=== PATIENT | male | born 1975 | race Caucasian/White ===

== ENCOUNTER 2023-06-17 16:10 | Outpatient (OUT) | payer MEDICARE, MEDICAID, SELFPAY ==
[2023-06-17 17:24] LABS: Estimated Average Glucose 186 mg/dL; Glycohemoglobin A1C 8.1 % (4.5-6.2)
[2023-06-17 17:34] LABS: Prostate Specific Antigen Scrn 0.44 ng/mL (<=4.00)
== END 2023-06-17 16:11 | disposition home or self-care (01) ==
LOC: LAB 16:14
PROVIDERS: PCP Internal Medicine; Visit Provider Internal Medicine
DX: Z12.5 Encounter for screening for malignant neoplasm of prostate (principal); E11.65 Type 2 diabetes mellitus with hyperglycemia
CPT/HCPCS: 36415; 83036; G0103

== ENCOUNTER 2024-01-02 10:04 | Outpatient (OUT) | payer MEDICARE, MEDICAID, SELFPAY ==
[2024-01-02 10:33] LABS: Basophils Absolute Auto 0.1 10^3/uL (0.0-0.1); Eosinophils Absolute Auto 0.1 10^3/uL (0.0-0.7); Eosinophils Percent Auto 1.6 % (0.9-7.0); Hematocrit 43.5 % (42.0-54.0); Hemoglobin 14.7 g/dL (14.0-18.0); Immature Granulocytes Abs Auto 0.04 10^3/uL (0.00-0.03); Immature Granulocytes Pct Auto 0.8 % (0.0-0.5); Lymphocytes Absolute Auto 1.6 10^3/uL (1.2-3.8); Lymphocytes Percent Auto 31.5 % (20.5-60.0); Mean Corpuscular HGB Conc 33.8 g/dL (29.9-35.2); Mean Corpuscular Hemoglobin 31.8 pg (25.9-34.0); Mean Corpuscular Volume 94.2 fL (80.0-94.0); Mean Platelet Volume 9.6 fL (9.5-13.5); Monocytes Absolute Auto 0.5 10^3/uL (0.3-0.8); Monocytes Percent Auto 10.4 % (1.7-12.0); Neutrophils Absolute Auto 2.7 10^3/uL (1.4-6.5); Neutrophils Percent Auto 54.7 % (43.0-75.0); Platelet Count 221 10^3/uL (150-450); Red Blood Count 4.62 10^6/uL (4.70-6.10); Red Cell Distribution Width 12.9 % (11.0-15.0)
[2024-01-02 10:49] LABS: Estimated Average Glucose 197 mg/dL; Glycohemoglobin A1C 8.5 % (4.5-6.2)
[2024-01-02 10:55] LABS: Microalbumin Urine Random 6.3 mg/dL (<=30.0)
[2024-01-02 11:05] LABS: Anion Gap 15.7; BUN Creatinine Ratio 20.5; Calcium 9.8 mg/dL (8.5-10.1); Carbon Dioxide 24.6 mmol/L (21.0-32.0); Chloride 102 mmol/L (98-107); Cholesterol 170 mg/dL (<=200); Estimated GFR (African America >60 (>=60); Estimated GFR (Non-African Ame >60 (>=60); Glucose 173 mg/dL (74-106); HDL Cholesterol 56 mg/dL (40-60); LDL Cholesterol Calculated 89.6 mg/dL; Potassium 4.3 mmol/L (3.5-5.1); Sodium 138 mmol/L (136-145); Triglycerides 122 mg/dL (<=150); VLDL CHOLESTEROL 24.4 mg/dL
== END 2024-01-02 10:05 | disposition home or self-care (01) ==
LOC: LAB 10:06
PROVIDERS: PCP Internal Medicine; Visit Provider Internal Medicine
DX: E11.65 Type 2 diabetes mellitus with hyperglycemia (principal); E78.2 Mixed hyperlipidemia; I10 Essential (primary) hypertension; R53.83 Other fatigue; Z12.5 Encounter for screening for malignant neoplasm of prostate; Z79.899 Other long term (current) drug therapy; F33.0 Major depressive disorder, recurrent, mild
CPT/HCPCS: 36415; 80048; 80061; 82043; 83036; 84443; 85025; G0103

== ENCOUNTER 2024-06-11 14:40 | Outpatient (OUT) | payer MEDICARE, MEDICAID, SELFPAY ==
[2024-06-11 15:55] LABS: Alanine Aminotransferase 19 U/L (16-63); Albumin Level 3.8 g/dL (3.4-5.0); Alkaline Phosphatase 66 U/L (46-116); Aspartate Amino Transferase 8 U/L (15-37); Bilirubin Direct 0.1 mg/dL (0.0-0.2); Bilirubin Total 0.4 mg/dL (0.2-1.0); Cholesterol 151 mg/dL (<=200); Globulin 3.8 g/dL; HDL Cholesterol 51 mg/dL (40-60); LDL Cholesterol Calculated 76.6 mg/dL; Thyroid Stimulating Hormone 2.371 uIU/mL (0.358-3.740); Total Protein 7.6 g/dL (6.4-8.2); Triglycerides 117 mg/dL (<=150); VLDL CHOLESTEROL 23.4 mg/dL
== END 2024-06-11 14:41 | disposition home or self-care (01) ==
LOC: LAB 14:42
PROVIDERS: PCP Internal Medicine; Visit Provider Nurse Practitioner Family
DX: Z51.81 Encounter for therapeutic drug level monitoring (principal); I63.81 Other cerebral infarction due to occlusion or stenosis of small artery
CPT/HCPCS: 36415; 80061; 80076; 82607; 84443

== ENCOUNTER 2024-06-11 14:46 | Outpatient (OUT) | payer MEDICARE, MEDICAID, SELFPAY ==
[2024-06-11 15:45] LABS: Estimated Average Glucose 192 mg/dL; Glycohemoglobin A1C 8.3 % (4.5-6.2)
== END 2024-06-11 14:47 | disposition home or self-care (01) ==
LOC: LAB 14:48
PROVIDERS: PCP Internal Medicine; Visit Provider Internal Medicine
DX: Z51.81 Encounter for therapeutic drug level monitoring (principal); I63.81 Other cerebral infarction due to occlusion or stenosis of small artery; E11.65 Type 2 diabetes mellitus with hyperglycemia
CPT/HCPCS: 36415; 80061; 80076; 82607; 83036; 84443

== ENCOUNTER 2024-09-02 12:05 | Outpatient (OUT) | payer MEDICARE, MEDICAID, SELFPAY ==
--- OUTSIDE RECORDS SUMMARY | 2024-09-02 12:17 | XMS_ITS | CCD ---
Author Organization [facility] Care Team Providers Care Wash Rack Operator Name Role Phone PHYSICIAN, DEFAULT Unavailable Unavailable PHYSICIAN, DEFAULT Unavailable Unavailable NARAYAN GAGNON Unavailable Unavailable PHYSICIAN, DEFAULT Unavailable Unavailable PHYSICIAN, DEFAULT Unavailable Unavailable NARAYAN GAGNON Unavailable Unavailable Narayan Gagnon Primary Care Provider Narayan Gagnon DO Primary Care Provider [phone] Narayan Gagnon DO Primary Care Provider [phone] VAHID MOODY Referring Unavailable AARON, MARCEOL S Consulting Unavailable NARAYAN GAGNON Primary Care Unavailable ZOLTAN MONIQUE Attending Unavailable ZOLTAN MONIQUE Admitting Unavailable Narayan Gagnon DO Primary Care Provider [phone] NARAYAN GAGNON Primary Care Physician Sue Qureshi Attending Unavailable Ballard, Malina Barragan Admitting Unavailable Ballard, Malina Barragan Attending Unavailable Ballard, Malina Barragan Referring Unavailable SALAM, Sylvester Admitting Unavailable SALAM, Sylvester Attending Unavailable SALAM, Phan Referring Unavailable Ballard, Malina T Admitting Unavailable Ballard, Malina T Attending Unavailable Ballard, Malina T Referring Unavailable Timmis, Lesly H Referring Unavailable Timmis, Lesly H Admitting Unavailable Timmis, Lesly H Attending Unavailable Kiera, Sue A Admitting Unavailable Kiera, Sue A Attending Unavailable Kiera, Sue A Admitting Unavailable Kiera, Sue A Attending Unavailable Narayan Gagnon Unavailable LULU, DR KUMAR Admitting Unavailable MINA PALACIOS Consulting Unavailable LULU, DR KUMAR Attending Unavailable BALL, DR BUSCH Primary Care Unavailable LULU, DR KUMAR Consulting Unavailable BALL, DR BUSCH Primary Care Unavailable BALL, DR BUSCH Admitting Unavailable BALL, DR BUSCH Attending Unavailable BALL, DR BUSCH Consulting Unavailable BALL, DR BUSCH Primary Care Unavailable BALL, DR BUSCH Admitting Unavailable BALL, DR BUSCH Attending Unavailable BALL, DR BUSCH Consulting Unavailable ZIEBER, DR ERIKA Manuel Consulting Unavailable BALL, DR BUSCH Admitting Unavailable BALL, DR BUSCH Attending Unavailable BALL, DR BUSCH Consulting Unavailable BALL, DR BUSCH Primary Care Unavailable BALL, DR BUSCH Admitting Unavailable BALL, DR BUSCH Attending Unavailable BALL, DR BUSCH Consulting Unavailable BALL, DR BUSCH Primary Care Unavailable LIZZ, GUS Admitting Unavailable BALL, DR BUSCH Primary Care Unavailable LIZZ, GUS Attending Unavailable BALLARD, DR RADFORD Admitting Unavailable BALL, DR BUSCH Primary Care Unavailable BALLARD, DR RADFORD Attending Unavailable JHONNY, HUANG Admitting Unavailable JHONNY, HUANG Attending Unavailable BALL, DR BUSCH Primary Care Unavailable Ball DONarayan Primary Care Provider [phone] DO Narayan Gagnon Primary Care Provider KIMO Hoffmann-Joseluis Stock Attending Provider Narayan Gagnon Primary Care Unavailable Hoffmann, Ju E Admitting Unavailable Hoffmann, Ju E Attending Unavailable Ball, Narayan Primary Care Unavailable Hoffmann, Ju E Admitting Unavailable Hoffmann, Ju Stock Attending Unavailable BALL, NARAYAN Referring Unavailable BALL, NARAYAN Primary Care Unavailable CONSKASHMIR GONZALES Attending Unavailable CONSOLO, KASHMIR Lombardi Admitting Unavailable BALL, NARAYAN Primary Care Unavailable BALLARD, MALINA Barragan Attending Unavailable BALLARD, MALINA Barragan Referring Unavailable HOFFMANN, JU Attending Unavailable HOFFMANN, JU Attending Unavailable COCO ARGUELLO Attending Unavailable Allergies Allergy Classification Reported Allergen(s) Allergy Type Date of Onset Reaction(s) Facility (20 sources) Morphine; Translations: [morphine] Drug Allergy 4 Hives, Vomiting (disorder), Difficulty breathing (finding) [place], [place] (12 sources) Penicillins Propensity to adverse reactions to drug 4 Hives [place], [place] (20 sources) Vancomycin; Translations: [vancomycin] Drug Allergy 3 Anaphylaxis, Difficulty breathing (finding) [place] (20 sources) Penicillin; Translations: [penicillin] Drug Allergy Urticaria (disorder) [facility] (1 source) Morphine Drug Allergy [facility] Rep[facility] (1 source) Vancomycin Drug Allergy [facility] Rep[facility] (18 sources) Penicillin G Benzathine & Proc Drug allergy Unknown [employer] Other (18 sources) Morphine Sulfate (Concentrate) *ANALGESICS - OPIOI Propensity to adverse reactions Unknown [employer] Other (6 sources) Allergies Reconciled Propensity to adverse reactions Unknown [employer] Other (6 sources) patient allergy list reviewed by nurse or physicia Propensity to adverse reactions 4 Comment:Done [employer] Other (2 sources) Penicillins Propensity to adverse reactions to drug [address] [facility] (1 source) Morphine Drug Allergy [facility] (1 source) Penicillins Drug allergy (disorder) [facility] (1 source) Vancomycin Drug Allergy 4 [facility] Rep[facility] Medications Current Medications Medication Drug Class(es) Dates Sig (Normalized) Sig (Original) Acetaminophen / oxyCODONE (6 sources) Opioid Agonist Start: 01-17-2022 Percocet 325 mg-5 mg Tab 1 tab(s), Oral, q4hr Pain 4-7, Refill(s) 0 Start Date: 01/17/22 Status: Ordered Start: 01-17-2022 Percocet 325 m g-5 mg Tab 2 tab(s), Oral, q4hr Pain 4-7, Refill(s) 0 Start Date: 01/17/22 Status: Ordered Start: 01-17-2022 Percocet 325 m g-5 mg Tab 1 tab(s), Oral, q4hr Pain 4-7, Refill(s) 0 Start Date: 01/17/22 Status: Ordered aspirin 81 mg delayed release oral tablet (20 sources) Platelet Aggregation Inhibitor, Nonsteroidal Anti-inflammatory Drug Start: 01-22-2022 aspirin 81 mg Cristal w Tab 81 mg = 1 tab(s), Chewed, Daily, Refills(s) 0 Start Date: 01/22/22 Status: Ordered Start: 04-29-2018 End: 06-26-2024 take 81 mg by mouth once daily Aspirin Active 81 MG PO daily 90 90 June 26, 2024 8:47am take 1 tablet by abdoulaye th once daily in the morning aspirin 81 MG tablet Take 81 mg by mouth every morning. 0 Active Blood-Glucose Meter (True Me trix Air Glucose Meter) [facility] [place] (3 sources) Start: 04-06-2024 Blood-Glucose Meter (True Metrix Air Glucose Meter) misc Active 0 .Route 1 April 06, 2024 12:00am to test BS daily calcium chloride 0.0014 meq/ ml / potassium chloride 0.004 meq/ml / sodium chloride 0.103 meq/ml / sodium lactate 0.028 meq/ml injectable solution (2 sources) Start: 05-07-2024 lactated ringe rs IV soln infusion Start: 11-24-2020 lactated ringe rs infusion clonazePAM 1 mg oral tablet (14 sources) Benzodiazepine Start: 08-10-2020 take 1 mg by mouth twice daily clonazepam 1 mg, Oral, BID, Psychosis Start Date: 08/10/20 Status: Ordered docusate sodium 100 mg oral capsule (20 sources) Start: 01-22-2024 take 100 mg by mouth once daily Docusate Sodium Active 100 MG PO Daily January 22, 2024 1:00am Start: 05-09-2020 take 1 capsule by mo [facility] twice daily as needed for constipation Colace 100 mg Cap 100 mg = 1 cap(s), Oral, BID, PRN for constipation, # 20 cap(s), Refills(s) 0 Start Date: 05/09/20 Status: Ordered take 1 capsule by mo ut every other day docusate sodium (COLACE) 100 MG capsule Take 1 capsule by mouth every other day Alternate with Fibercon 625 mg 0 Active 0.5 ml dulaglutide 1.5 mg/ml auto-injector (20 sources) GLP-1 Receptor Agonist Start: 06-12-2024 Dulaglutide (Trulicity) 0.75 mg/0.5 mL pen injector Active 1.5 MG SUBCUT every week June 12, 2024 2:21pm Start: 02-04-2024 End: 06-12-2024 inject 0.75 mg by subcutaneous injection every week Dulaglutide (Trulicity) 0.75 mg/0.5 mL pen injector Discontinued 0 .ROUTE .COMPLEX February 17, 2024 1:38pm June 12, 2024 2:21pm INJECT 0.75 MG SUBCUTANEOUSLY ONCE A WEEK Start: 01-15-2023 End: 02-04-2024 Dulaglutide (Trulicity) 1.5 mg/0.5 mL pen injector Discontinued 1.5 MG SUBCUT every week January 22, 2024 1:00am February 04, 2024 8:34am Start: 01-08-2022 inject 3 mg by subcu taneous injection every week Trulicity Pen 3 mg/0.5 mL subcutaneous solution 3 mg, SubCutaneous, qWeek, Blood glucose Start Date: 01/08/22 Status: Ordered Start: 04-29-2018 End: 01-22-2024 Dulaglutide (Trulicity) 0.75 mg/0.5 mL Pen Injector Discontinued 1 DOSE SUBCUT .QTUES April 29, 2018 12:00am January 22, 2024 12:43pm Dulaglutide (OLGA LICITY) 1.5 MG/0.5ML SOPN Inject 3 mg into the skin once a week Weekly on Saturday 0 Active DULoxetine 60 mg delayed release oral capsule (1 source) Serotonin and Norepinephrine Reuptake Inhibitor take 1 capsule by mouth once daily DULoxetine (CYMBALTA) 60 MG extended release capsule Take 1 capsule by mouth daily 0 Active empagliflozin 25 mg oral tablet (20 sources) Sodium-Glucose Cotransporter 2 Inhibitor Start: 01-22-20 End: 06-26-20 take 25 mg by mouth once daily Empagliflozin Active 25 MG PO Daily 90 90 June 26, 2024 8:47am Fiber (3 sources) Start: 05-09-20 take 1 tablet by mouth every other day Fiber Lax 625 mg oral tablet 625 mg = 1 tab(s), Oral, Every other day, Refills(s) 0, Constipation Start Date: 05/09/20 Status: Ordered fluticasone propionate 0.05 mg/actuat metered dose nasal spray (20 sources) Corticosteroid Start: 01-22-20 Fluticasone Propionate Active 1 SPRAY INTRANASAL Daily January 22, 2024 1:00am take 1 spray(s) nasal route once daily Fluticasone Propionate 50 MCG/ACT 1 spray in each nostril Nasally Once a day Active take 1 spray(s) nasal route once daily Fluticasone Propionate 50 MCG/ACT 1 spray in each nostril Nasally Once a day Active glimepiride 2 mg oral tablet (20 sources) Sulfonylurea Start: 01-23-2024 End: 06-26-2024 Glimepiride Active 2 MG PO Daily 90 90 June 26, 2024 8:47am Take with 4mg dose, 30 minutes prior to bkfst Start: 01-22-2024 End: 06-01-2024 take 4 mg by mouth once daily Glimepiride Discontinued 4 MG PO Daily 90 March 31, 2024 2:13pm June 01, 2024 5:40pm Start: 05-09-2020 take 1 tablet by abdoulaye once daily glimepiride 2 mg Tab 2 mg = 1 tab(s), Oral, Daily, Refills(s) 0, Blood glucose Start Date: 05/09/20 Status: Ordered Start: 04-29-2018 End: 01-22-2024 take 1 tablet by mouth once daily in the morning Glimepiride Discontinued 3 MG PO Every morning April 29, 2018 12:00am January 22, 2024 12:40pm (1 1/2 tab daily) take 2 tablets by mo uth once daily before breakfast glimepiride (AMARYL) 1 MG tablet Take 2 tablets by mouth every morning (before breakfast) 0 Active take 4 tablets by mo uth once daily before breakfast glimepiride (AMARYL) 1 MG tablet Take 4 mg by mouth every morning (before breakfast) 0 Active hyoscyamine sulfate 0.125 mg sublingual tablet (10 sources) Start: 01-22-2024 take 1 tablet under the tongue once daily Hyoscyamine Sulfate (Levsin/Sl) 0.125 mg tablet, sublingual Active 0.125 MG SUBLINGUAL Daily January 22, 2024 1:00am Start: 11-13-2023 Levsin/SL 0.12 5 MG 1 tablet under the tongue and allow to dissolve as needed Sublingual before meals and HS for 15 days Oct, Active ibuprofen 800 mg oral tablet (10 sources) Nonsteroidal Anti-inflammatory Drug Start: 07-30-2014 take 1 tablet by mouth every six hours as needed for pain ibuprofen (ADVIL;MOTRIN) 800 MG tablet Take 1 tablet by mouth every 6 hours as needed for Pain for up to 40 doses. 40 tablet 0 07/30/2014 Active iloperidone 6 mg oral tablet (20 sources) Atypical Antipsychotic Start: 01-22-2024 take 6 mg by mouth twice daily Iloperidone Active 6 MG PO Twice daily January 22, 2024 1:00am Start: 11-01-2022 Fanapt Refills (s) 0 Start Date: 11/01/22 Status: Ordered lisinopril 20 mg oral tablet (20 sources) Angiotensin Converting Enzyme Inhibitor Start: 01-08-2022 take 20 mg by mouth once daily Lisinopril Active 20 MG PO Daily January 22, 2024 1:00am Start: 04-29-2018 End: 01-22-2024 take 5 mg by mouth once daily Lisinopril Discontinued 5 MG PO daily April 29, 2018 12:00am January 22, 2024 12:41pm take 4 tablets by mo uth once daily in the morning lisinopril (PRINIVIL;ZESTRIL) 5 MG tablet Take 20 mg by mouth every morning 0 Active lurasidone hydrochloride 20 mg oral tablet (20 sources) Atypical Antipsychotic Start: 01-22-2024 take 20 mg by mouth once daily Lurasidone Active 20 MG PO Daily January 22, 2024 1:00am Start: 05-05-2018 End: 01-22-2024 take 1 tablet by mouth once daily Lurasidone (Latuda) 40 mg Tablet Discontinued 80 MG PO Daily with supper 60 May 05, 2018 12:00am January 22, 2024 12:43pm Start: 04-29-2018 End: 01-22-2024 take 1 tablet by mouth once daily in the evening Lurasidone (Latuda) 60 mg Tablet Discontinued 60 MG PO Every evening April 29, 2018 12:00am January 22, 2024 12:43pm End: 11-23-2021 take 1 tablet by mouth every twenty-four hours Latuda 20 MG 1 tablet in the evening with food Orally Once a day Active metFORMIN hydrochloride 500 mg oral tablet (17 sources) Biguanide Start: 01-08-2022 take 1 tablet by mouth twice daily metformin 500 mg oral tablet 500 mg = 1 tab(s), Oral, BID, Blood glucose Start Date: 01/08/22 Status: Ordered Start: 04-29-2018 End: 01-22-2024 take 1000 mg by mouth twice daily at mealtime Metformin Discontinued 1000 MG PO Twice daily April 29, 2018 12:00am January 22, 2024 12:43pm with meals metFORMIN (GLUCO PHAGE) 1000 MG tablet Take 500 mg by mouth 2 times daily (with meals) 0 Active metroNIDAZOLE 7.5 mg/ml topical cream (20 sources) Nitroimidazole Antimicrobial Start: 03-04-2023 Metronidazole (Metrocream) 0.75 % cream Active 1 APPLIC TOPICAL Twice daily January 22, 2024 1:00am Start: 03-04-2023 MetroCream 0.7 5 % 1 application Externally Twice a day for 30 days Feb, Active omeprazole 40 mg delayed release oral capsule (2 sources) Proton Pump Inhibitor Start: 11-01-2022 End: 01-30-2023 take 1 capsule by mouth once daily omeprazole 40 mg Cap-DR 40 mg = 1 cap(s), Oral, Daily, X 90 day(s), # 90 cap(s), Refills(s) 0, Pharmacy: [facility], 171, cm, 11/01/22 12:17:00 EST, Height/Length Dosing, 78.9, kg, 11/01/22 12:17:00 EST, Weight Dosing Start Date: 11/01/22 Stop Date: 01/30/23 Status: Ordered polyethylene glycol 3350 565120 mg / potassium chloride 1480 mg / sodium bicarbonate 5720 mg / sodium chloride 24781 mg powder for oral solution (1 source) Osmotic Laxative Start: 11-01-2022 NuLYTELY Zimmer oral powder for reconstitution See Instructions, 1 EA, Refill(s) 0, Prior to colonoscopy., [facility], 171, cm, 11/01/22 12:17:00 EST, Height/Length Dosing, 78.9, kg, 11/01/22 12:17:00 EST, Weight Dosing Start Date: 11/01/22 Status: Ordered pravastatin sodium 20 mg oral tablet (20 sources) HMG-CoA Reductase Inhibitor Start: 04-29-2018 take 20 mg by mouth once daily in the evening Pravastatin Active 20 MG PO Every evening April 29, 2018 12:00am sulfamethoxazole 800 mg / trimethoprim 160 mg oral tablet (4 sources) Dihydrofolate Reductase Inhibitor Antibacterial, Sulfonamide Antimicrobial Start: 03-12-2024 take 1 tablet by mouth every twelve hours Sulfamethoxazole-Tr imethoprim (Bactrim Ds) 800-160 mg tablet Active 1 TAB PO Every 12 hours 13 09March 12, 2024 12:00am traMADol hydrochloride 50 mg oral tablet (20 sources) Opioid Agonist Start: 03-12-2024 End: 06-30-2024 take 50 mg by mouth twice daily Tramadol Active 50 MG PO Twice daily 60 30 June 30, 2024 2:02pm Start 06/29 Start: 04-29-2018 End: 01-22-2024 take 50 mg by mouth twice daily Tramadol Discontinued 50 MG PO Twice daily April 29, 2018 12:00am January 22, 2024 12:43pm take 1 tablet by abdoulaye every twenty-four hours traMADol HCl 50 MG 1 tablet as needed Orally Once a day Active traZODone hydrochloride 100 mg oral tablet (20 sources) Serotonin Reuptake Inhibitor Start: 05-16-2022 traZODone (DESYREL) tablet 100 mg Start: 01-08-2022 End: 06-30-2024 take 100 mg by mouth once daily at bedtime Trazodone Active 100 MG PO Daily at bedtime 90 90 June 30, 2024 1:09pm 24 hr divalproex sodium 500 mg extended release oral tablet (20 sources) Mood Stabilizer, Anti-epileptic Agent Start: 05-09-2020 take 1 tablet by mouth at bedtime divalproex (DEPAKOTE ER) 500 MG extended release tablet Take 1 tablet by mouth in the morning and at bedtime 60 tablet 0 05/18/2022 Active Start: 05-05-2018 End: 01-22-2024 take 250 mg by mouth once daily at bedtime Divalproex Discontinued 250 MG PO Daily at bedtime 30 May 05, 2018 12:00am January 22, 2024 12:43pm Start: 05-05-2018 End: 01-22-2024 take 500 mg by mouth twice daily Divalproex Discontinued 500 MG PO Twice daily 60 May 05, 2018 12:00am January 22, 2024 12:43pm Start: 04-29-2018 End: 01-22-2024 take 250 mg by mouth three times daily Divalproex Discontinued 250 MG PO Three times daily April 29, 2018 12:00am January 22, 2024 12:44pm take 2 tablets by mo [facility] twice daily divalproex (DEPAKOTE) [address] tablet Take 500 mg by mouth 2 times daily 0 Active verapamil hydrochloride 180 mg extended release oral tablet (20 sources) Calcium Channel Won Start: 02-21-2023 take 1 tablet by mouth every twenty-four hours Verapamil HCl ER 180 MG 1 tablet Orally Once a day for 90 days Jan, Active Start: 04-29-2018 take 180 mg by mouth once chitra y Verapamil Active 180 MG PO daily April 29, 2018 12:00am Completed/Discontinued Medications Medication Drug Class(es) Dates Sig (Normalized) Sig (Original) acetaminophen 500 mg oral tablet (2 sources) Start: 05-16-2022 End: 05-16-2022 acetaminophen (TYLENOL) tablet 1,000 mg Start: 11-24-2020 End: 11-24-2020 acetaminophen (TYLENOL) tabl et 650 mg calcium polycarbophil 625 mg oral tablet (20 sources) Start: 04-29-2018 End: 01-22-2024 take 1 tablet by mouth twice daily Calcium Polycarbophil (Fiber-Lax) 625 mg Tablet Discontinued 625 MG PO Twice daily April 29, 2018 12:00am January 22, 2024 12:44pm take 1 tablet by mouth every oth er day polycarbophil (FIBERCON) 625 MG tablet Take 1 tablet by mouth every other day Alternate with Colace 0 Active take 2 tablets by mo uth every eight hours Fiber-Lax 625 MG 2 tablets as needed Ora lly Three times a day for 30 days Active cholecalciferol 0.025 mg oral capsule (4 sources) Vitamin D Start: 04-29-2018 End: 01-22-2024 take 1 capsule by mouth once daily Cholecalciferol (Vitamin D3) (Vitamin D3) 1,000 unit Capsule Discontinued 1000 UNIT PO daily April 29, 2018 12:00am January 22, 2024 12:44pm citalopram 40 mg oral tablet (5 sources) Serotonin Reuptake Inhibitor Start: 04-29-2018 End: 11-16-2020 take 40 mg by mouth once daily in the evening Citalopram Discontinued 40 MG PO Every evening April 29, 2018 12:00am May 05, 2018 9:27am 50 ml clindamycin 18 mg/ml injection (2 sources) Lincosamide Antibacterial Start: 05-07-2024 End: 05-07-2024 clindamycin (CLEOCIN) 900 mg in dextrose 5 % 50 mL IVPB Start: 11-24-2020 End: 11-24-2020 clindamycin (CLEOCIN) 900 mg in dextrose 5 % 50 mL IVPB dimenhyDRINATE 50 mg oral tablet (1 source) Start: 11-24-2020 End: 11-24-2020 dimenhyDRINATE (DRAMAMINE) tablet 50 mg gadoteridol (PROHANCE) injection 15 mL (1 source) Start: 11-17-2020 End: 11-17-2020 gadoteridol (PROHANCE) injection 15 mL LORazepam 1 mg oral tablet (1 source) Benzodiazepine Start: 05-16-2022 End: 05-16-2022 LORazepam (ATIVAN) tablet 1 mg mirtazapine 15 mg oral tablet (4 sources) Start: 05-05-2018 End: 01-22-2024 take 15 mg by mouth once daily at bedtime Mirtazapine Discontinued 15 MG PO Daily at bedtime May 05, 2018 12:00am January 22, 2024 12:43pm MULTIPLE VITAMIN PO (1 source) End: 11-16-2020 MULTIPLE VITAMIN PO Take by mouth every morning. 0 11/16/2020 Discontinued (Therapy completed) OLANZapine 5 mg oral tablet (1 source) Atypical Antipsychotic Start: 05-17-2022 End: 05-17-2022 OLANZapine (ZYPREXA) tablet 10 mg primidone 50 mg oral tablet (7 sources) Anti-epileptic Agent Start: 05-16-2022 End: 05-16-2022 primidone (MYSOLINE) tablet 25 mg Start: 01-08-2022 primidone 50 m g Tab 25 mg = 0.5 tab(s), Oral, Once a day (at bedtime), Psychosis Start Date: 01/08/22 Status: Ordered take 0.5 tablet by m outh once daily primidone (MYSOLINE) 50 MG tablet Take 0.5 tablets by mouth nightly 0 Active tiZANidine 4 mg oral tablet (20 sources) Central alpha-2 Adrenergic Agonist Start: 05-16-2022 End: 05-16-2022 tiZANidine (ZANAFLEX) tablet 4 mg Start: 04-29-2018 take 4 mg by mouth o nce daily in the evening Tizanidine Active 4 MG PO Every evening April 29, 2018 12:00am take 1 tablet by abdoulaye th every eight hours tiZANidine HCl 4 MG 1 tablet as needed Orally Three times a day for 30 days Active vitamin e d-alpha 400 unt oral capsule (1 source) End: 11-16-2020 take 1 capsule by mouth once daily in the evening vitamin E 400 UNIT capsule Take 400 Units by mouth every evening. 0 11/16/2020 Discontinued (Therapy completed) zolpidem tartrate 10 mg oral tablet (1 source) gamma-Aminobuty eloy Acid-ergic Agonist End: 11-16-2020 zolpidem (AMBIEN) 10 MG tablet Take by mouth nightly as needed for Sleep. 0 11/16/2020 Discontinued (Therapy completed) Problems Active Problems Problem Classification Problem Date Documented Da te Episodic/Chronic Abdominal pain (20 sources) Abdominal pain; Translations: [Unspecified abdominal pain] Onset: 01-26-2014 05-09-2020 Episodic Acute cerebrovascular disease (1 source) Other cerebral infarction due to occlusion or stenosis of small artery; Translations: [Other cerebral infarction due to occlusion or stenosis of small artery] Onset: 07-02-2024 Chronic Allergic reactions (18 sources) Contact dermatitis; Translations: [Unspecified contact dermatitis, unspecified cause] Onset: 06-25-2018 Episodic Anxiety disorders (20 sources) Generalized anxiety disorder; Translations: [Generalized anxiety disorder] Chronic Asthma (20 sources) Mild intermittent asthma; Translations: [Mild intermittent asthma, uncomplicated] Onset: 01-21-2018 Chronic Bacterial infection; unspecified site (12 sources) Bacterial infectious disease; Translations: [Bacterial infection, unspecified, in conditions classified elsewhere and of unspecified site] Onset: 11-22-2017 Episodic Blindness and vision defects (1 source) Diplopia; Translations: [Diplopia] Episodic Cardiac dysrhythmias (20 sources) Intermittent palpitations; Translations: [Palpitations] Episodic Developmental disorders (6 sources) Developmental academic disorder; Translations: [Developmental disorder of scholastic skills, unspecified] Onset: 03-15-2014 Chronic Diabetes mellitus with complications (20 sources) Hyperglycemia due to type 2 diabetes mellitus; Translations: [Type 2 diabetes mellitus with hyperglycemia] Onset: 02-10-2014 Chronic Diabetes mellitus without complication (15 sources) Type 2 diabetes mellitus without complication; Translations: [Type 2 diabetes mellitus without complications] Onset: 08-06-2014 05-17-2022 Chronic Disorders of lipid metabolism (20 sources) Hyperlipidemia; Translations: [Mixed hyperlipidemia] Onset: 07-16-2016 08-26-2020 Chronic Diverticulosis and diverticulitis (6 sources) Diverticular disease of colon; Translations: [Diverticulosis of large intestine without perforation or abscess without bleeding] Chronic Esophageal disorders (3 sources) Gastro-esophageal reflux disease with esophagitis; Translations: [Gastro-esophageal reflux disease with esophagitis, without bleeding] Onset: 04-22-2018 Chronic Esophageal disorders (3 sources) Esophageal disorders; Translations: [Gastro-esophageal reflux disease with esophagitis, without bleeding] Onset: 04-22-2018 Essential hypertension (20 sources) Essential hypertension; Translations: [Essential (primary) hypertension] Onset: 03-17-2015 05-17-2022 Chronic Genitourinary symptoms and ill-defined conditions (6 sources) Post-micturition incontinence ; Translations: [Urge incontinence of urine] 05-09-2020 Chronic Headache; including migraine (20 sources) Episodic tension-type headache; Translations: [Episodic tension-type headache, not intractable] 01-22-2024 Chronic Hyperplasia of prostate (20 sources) Lower urinary tract symptoms due to benign prostatic hypertrophy; Translations: [Benign prostatic hyperplasia with lower urinary tract symptoms] Onset: 11-05-2022 01-22-2024 Chronic Immunizations and screening for infectious disease (12 sources) Contact with and (suspected) exposure to other viral communicable diseases; Translations: [Vaccination given] Resolved: 11-04-2021 Episodic Impulse control disorders, NEC (1 source) Homicidal thoughts; Translations: [Homicidal ideations] Episodic Malaise and fatigue (20 sources) Fatigue; Translations: [Chronic fatigue, unspecified] Onset: 02-08-2023 Chronic Malaise and fatigue (19 sources) Weakness; Translations: [Malaise and fatigue] Onset: 01-26-2014 Episodic Miscellaneous mental health disorders (20 sources) Mental disorder; Translations: [Primary insomnia] 05-09-2020 Chronic Mood disorders (20 sources) Depressive disorder; Translations: [Depression with suicidal ideation] Onset: 11-20-2018 05-17-2022 Chronic Nutritional deficiencies (6 sources) Vitamin D deficiency; Translations: [Vitamin D deficiency, unspecified] Onset: 01-17-2017 Chronic Osteoarthritis (20 sources) Arthritis; Translations: [Arthritis of left knee] 05-09-2020 Chronic Other aftercare (4 sources) Other jail (current) drug therapy; Translations: [OTH LONGTERM CURRENT DRUG THERAPY] Onset: 02-11-2023 Episodic Other and unspecified benign neoplasm (3 sources) History of polyp of colon; Translations: [Personal history of colonic polyps] Onset: 11-01-2022 Episodic Other and unspecified benign neoplasm (20 sources) Polyp of colon; Translations: [Polyp of colon] Episodic Other congenital anomalies (3 sources) Congenital chromosomal disease Onset: 02-28-2018 08-26-2020 Chronic Other congenital anomalies (20 sources) Stanley syndrome; 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] Onset: 03-03-2018 05-09-2020 Chronic Other congenital anomalies (6 sources) Congenital malformation syndrome; Translations: [Other specified multiple congenital anomalies, so described] Onset: 03-15-2014 Chronic Other congenital anomalies (6 sources) Congenital pes planus; Translations: [Congenital pes planus, unspecified foot] Onset: 08-06-2014 Chronic Other congenital anomalies (3 sources) Stanley syndrome; 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] 01-23-2024 Chronic Other connective tissue disease (20 sources) History of right total knee replacement; Translations: [Presence of right artificial knee joint] Chronic Other connective tissue disease (6 sources) Artificial knee joint present; Translations: [Presence of right artificial knee joint] Onset: 01-23-2022 Chronic Other connective tissue disease (1 source) Presence of right artificial knee joint; Translations: [History of total right knee replacement] Chronic Other diseases of kidney and ureters (9 sources) Vesicoureteric reflux; Translations: [Vesicoureteral-refl ux, unspecified] 05-09-2020 Episodic Other ear and sense organ disorders (3 sources) Hearing loss 05-09-2020 Chronic Other ear and sense organ disorders (20 sources) Sensorineural hearing loss; Translations: [Unspecified sensorineural hearing loss] 01-22-2024 Chronic Other eye disorders (1 source) Myopathy of extraocular muscles, bilateral; Translations: [Dysfunction of both inferior oblique muscles] Chronic Other eye disorders (1 source) Monocular exotropia with A pattern; Translations: [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] Episodic Other eye disorders (1 source) Alternating exotropia; 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] Episodic Other gastrointestinal disorders (20 sources) Irritable bowel syndrome; Translations: [Mixed irritable bowel syndrome] 01-22-2024 Chronic Other gastrointestinal disorders (3 sources) Mixed irritable bowel syndrome Chronic Other gastrointestinal disorders (6 sources) Irritable bowel syndrome with diarrhea; Translations: [Irritable bowel syndrome with diarrhea] Chronic Other gastrointestinal disorders (1 source) Irritable bowel syndrome with diarrhea Chronic Other gastrointestinal disorders (1 source) Digestive system finding; Translations: [Other specified symptoms and signs involving the digestive system and abdomen] Onset: 11-01-2022 Episodic Other gastrointestinal disorders (3 sources) Dysphagia; Translations: [Dysphagia, unspecified] Onset: 11-01-2022 Episodic Other gastrointestinal disorders (3 sources) Heartburn; Translations: [Heartburn] Onset: 11-01-2022 Episodic Other gastrointestinal disorders (2 sources) Irregular bowel habits 11-01-2022 Episodic Other gastrointestinal disorders (2 sources) Diarrhea; Translations: [Diarrhea, unspecified] Onset: 01-02-2023 Episodic Other gastrointestinal disorders (2 sources) Diarrhea, unspecified; Translations: [Diarrhea] Episodic Other gastrointestinal disorders (4 sources) Slow transit constipation; Translations: [Slow transit constipation] 01-23-2024 Episodic Other gastrointestinal disorders (2 sources) Slow transit constipation; Translations: [Slow transit constipation] 01-23-2024 Episodic Other hereditary and degenerative nervous system conditions (20 sources) Mild cognitive disorder ; Translations: [Mild cognitive impairment, so stated] Chronic Other hereditary and degenerative nervous system conditions (3 sources) Mild cognitive impairment, so stated; Translations: [MCI (mild cognitive impairment)] Chronic Other hereditary and degenerative nervous system conditions (1 source) Essential tremor; Translations: [ESSENTIAL TREMOR] Onset: 12-26-2022 Chronic Other hereditary and degenerative nervous system conditions (10 sources) Essential tremor; Translations: [Essential tremor] 01-22-2024 Chronic Other hereditary and degenerative nervous system conditions (4 sources) Impaired cognition; Translations: [Mild cognitive impairment, so stated] 01-22-2024 Chronic Other inflammatory condition of skin (20 sources) Rosacea; Translations: [Rosacea, unspecified] 01-22-2024 Chronic Other inflammatory condition of skin (1 source) Rosacea, unspecified Chronic Other inflammatory condition of skin (20 sources) Seborrheic dermatitis of scalp; Translations: [Seborrheic dermatitis, unspecified] 01-22-2024 Episodic Other inflammatory condition of skin (6 sources) Seborrheic dermatitis; Translations: [Seborrheic dermatitis, unspecified] Episodic Other inflammatory condition of skin (2 sources) Seborrheic dermatitis, unspecified; Translations: [Other seborrheic dermatitis] 01-23-2024 Episodic Other injuries and conditions due to external causes (6 sources) Late effect of foreign body in orifice; Translations: [Unspecified foreign body in respiratory tract, part unspecified causing other injury, sequela] Episodic Other lower respiratory disease (1 source) Shortness of breath; Translations: [SHORTNESS OF BREATH] Onset: 02-11-2023 Episodic Other male genital disorders (3 sources) Swelling of testicle 05-09-2020 Episodic Other male genital disorders (20 sources) Hydrocele; Translations: [Hydrocele, unspecified] Episodic Other male genital disorders (7 sources) Hydrocele, unspecified; Translations: [Hydrocele] Episodic Other nervous system disorders (1 source) Aphasia; Translations: [Aphasia] Onset: 05-15-2024 Chronic Other nervous system disorders (4 sources) Tremor, unspecified; Translations: [TREMOR UNSPECIFIED] Onset: 02-13-2023 Episodic Other non-traumatic joint disorders (20 sources) Hip pain; Translations: [Pain in unspecified hip] Episodic Other non-traumatic joint disorders (6 sources) Arthralgia of the pelvic region and thigh; Translations: [Pain in unspecified hip] Episodic Other non-traumatic joint disorders (1 source) Pain in unspecified hip; Translations: [Hip pain] Episodic Other nutritional; endocrine; and metabolic disorders (20 sources) Obesity; Translations: [Obesity, unspecified] Chronic Other nutritional; endocrine; and metabolic disorders (12 sources) Body mass index 30+ - obesity; Translations: [Body mass index 30.0-30.9, adult] Onset: 02-25-2017 Chronic Other nutritional; endocrine; and metabolic disorders (12 sources) Obese class I; Translations: [Body mass index 32.0-32.9, adult] Onset: 01-26-2014 Chronic Other nutritional; endocrine; and metabolic disorders (6 sources) Simple obesity ; Translations: [Other obesity due to excess calories] Onset: 01-26-2014 Chronic Other nutritional; endocrine; and metabolic disorders (1 source) Obesity, unspecified; Translations: [Obesity (BMI 30-39.9)] Chronic Other screening for suspected conditions (not mental disorders or infectious disease) (3 sources) Encounter for screening for malignant neoplasm of prostate Episodic Other skin disorders (6 sources) Generalized hyperhidrosis; Translations: [Generalized hyperhidrosis] Episodic Other skin disorders (2 sources) Ingrowing nail; Translations: [Ingrowing nail] Onset: 05-07-2024 Episodic Other upper respiratory infections (19 sources) Acute upper respiratory infection; Translations: [Acute upper respiratory infection, unspecified] Onset: 11-09-2013 Episodic Pleurisy; pneumothorax; pulmonary collapse (20 sources) Obstructive atelectasis; Translations: [Atelectasis] Onset: 02-28-2018 Resolved: 01-15-2022 08-26-2020 Episodic Poisoning by nonmedicinal substances (6 sources) Toxic effect of venom of other arthropod, accidental (unintentional), sequela; Translations: [Toxic effect of venom of other arthropod, accidental (unintentional), sequela] Episodic Residual codes; unclassified (3 sources) Sleep apnea 01-08-2022 Chronic Residual codes; unclassified (20 sources) Obstructive sleep apnea syndrome; Translations: [Obstructive sleep apnea (adult) (pediatric)] Onset: 2018 01-22-2024 Chronic Residual codes; unclassified (8 sources) Obstructive sleep apnea (adult) (pediatric); Translations: [Obstructive sleep apnea (adult)(pediatric)] Chronic Schizophrenia and other psychotic disorders (20 sources) Schizophrenia; Translations: [Schizoaffective disorder, bipolar type] 01-08-2022 Chronic Skin and subcutaneous tissue infections (18 sources) Cellulitis of right lower limb; Translations: [Cellulitis of right lower limb] Resolved: 11-04-2021 03-12-2024 Episodic Suicide and intentional self-inflicted injury (1 source) Suicidal thoughts; Translations: [Suicidal ideations] Episodic Unclassified (1 source) Patient encounter status; Translations: [Preoperative testing] Unclassified (2 sources) Finding of sensation of abdomen 11-01-2022 Unclassified (3 sources) Other specified cough; Translations: [Other specified cough] Onset: 01-21-2018 Unclassified (2 sources) pre admission testing; Translations: [pre admission testing] Onset: 05-01-2024 Past or Other Problems Problem Classification Problem Date Documented Date Episodic/Chronic Acute bronchitis (6 sources) Acute bronchitis; Translations: [Acute bronchitis, unspecified] Onset: 03-22-2016 Episodic Genitourinary symptoms and ill-defined conditions (20 sources) Dysuria; Translations: [Increased frequency of urination] Onset: 02-10-2014 05-09-2020 Episodic Headache; including migraine (10 sources) Headache; Translations: [Chronic headache disorder] Onset: 12-12-2015 05-09-2020 Episodic Heart valve disorders (9 sources) Heart murmur; Translations: [O/E - cardiac murmur] Resolved: 12-22-2021 05-09-2020 Episodic Inflammation; infection of eye (except that caused by tuberculosis or sexually transmitteddisease) (6 sources) Acute conjunctivitis; Translations: [Unspecified acute conjunctivitis] Onset: 11-09-2016 Episodic Inflammatory conditions of male genital organs (6 sources) Orchitis and epididymitis; Translations: [Epididymo-orchitis] Resolved: 01-14-2021 Episodic Joint disorders and dislocations; trauma-related (6 sources) Current tear of medial cartilage AND/OR meniscus of knee; Translations: [Tear of medial cartilage or meniscus of knee, current] Onset: 03-15-2014 Episodic Neoplasms of unspecified nature or uncertain behavior (9 sources) Neoplasm of lung ; 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, bronchus and lung] Onset: 02-17-2018 08-26-2020 Episodic Other aftercare (6 sources) High risk drug monitoring status; Translations: [prison (current) use of opiate analgesic] Onset: 02-09-2019 Episodic Other connective tissue disease (4 sources) Other bursitis of hip, left hip; Translations: [OTHER BURSITIS OF HIP LEFT HIP] Onset: 12-20-2022 Episodic Other connective tissue disease (6 sources) Disorder of musculoskeletal system; Translations: [Other symptoms and signs involving the musculoskeletal system] Resolved: 01-15-2022 Episodic Other connective tissue disease (6 sources) Achilles bursitis; Translations: [Achilles bursitis or tendinitis] Onset: 05-29-2017 Episodic Other connective tissue disease (6 sources) Tear of right rotator cuff; Translations: [Unspecified rotator cuff tear or rupture of right shoulder, not specified as traumatic] Onset: 11-22-2017 Episodic Other lower respiratory disease (12 sources) Lung field abnormal; Translations: [Other nonspecific abnormal finding of lung field] Onset: 06-25-2018 Episodic Other lower respiratory disease (6 sources) Chronic cough; Translations: [Chronic cough] Onset: 01-06-2018 Episodic Other lower respiratory disease (9 sources) Cough; Translations: [Cough, unspecified] Onset: 01-21-2018 Episodic Other male genital disorders (9 sources) Disorder of male genital organ; Translations: [Other specified disorders of the male genital organs] Resolved: 01-14-2021 10-28-2020 Episodic Other non-traumatic joint disorders (1 source) Pain in left shoulder; Translations: [PAIN IN LEFT SHOULDER] Onset: 12-26-2022 Episodic Other non-traumatic joint disorders (6 sources) Shoulder joint pain; Translations: [Pain in joint, shoulder region] Onset: 11-22-2017 Episodic Other non-traumatic joint disorders (6 sources) Arthralgia of the ankle and/or foot; Translations: [Pain in unspecified ankle and joints of unspecified foot] Onset: 04-29-2014 Episodic Other nutritional; endocrine; and metabolic disorders (6 sources) Body mass index 25-29 - overweight; Translations: [Body mass index 29.0-29.9, adult] Onset: 02-25-2017 Episodic Other nutritional; endocrine; and metabolic disorders (6 sources) Overweight; Translations: [Overweight] Onset: 01-26-2014 Episodic Pneumonia (except that caused by tuberculosis or sexually transmitted disease) (6 sources) Infective pneumonia; Translations: [Pneumonia due to other specified infectious organisms] Onset: 01-06-2018 Episodic Residual codes; unclassified (6 sources) Insomnia; Translations: [Insomnia, unspecified] Resolved: 01-15-2022 Episodic Residual codes; unclassified (6 sources) Requires influenza virus vaccination; Translations: [Need for prophylactic vaccination and inoculation, Influenza] Onset: 08-13-2018 Episodic Spondylosis; intervertebral disc disorders; other back problems (6 sources) Low back pain; Translations: [Low back pain, unspecified] Resolved: 11-04-2021 Episodic Sprains and strains (18 sources) Strain of muscle of left hip; Translations: [Strain of muscle, fascia and tendon of left hip, initial encounter] Onset: 11-22-2017 Episodic Superficial injury; contusion (12 sources) Contusion of abdominal wall; Translations: [Contusion of abdominal wall] Onset: 03-17-2015 Resolved: 11-04-2021 Episodic Unclassified (5 sources) Nocturnal polyuria; Translations: [Nocturnal polyuria] Resolved: 01-15-2022 Unclassified (1 source) Nocturnal polyuria; Translations: [Nocturnal polyuria] Resolved: 01-15-2022 Results Test Name Value Interpretation Reference Range Facil ity CT angio neckon 07-02-2024 CT angio neck [facility] Main [place] [address] [place] [address] CT Scan Report Signed Patient: Hari Thornton MR#: [id number] : 1975 Acct:[id number] Age/Sex: 49 / M ADM Date: 07/02/24 Loc: CT Room: Type: [facility] Attending Dr: Ju BLANC Copies to: JAYASHREE Porter Ordering Provider: JAYASHREE Porter Date of Service: 07/02/24 CT/CT angio neck: I63.81 ([id number]) CT/CT angio head: I63.81 CTA Head and Neck TECHNIQUE: Axial imaging of the head and neck with 2-D and 3-D reconstruction. 75cc of Isovue-370. The CT exam was performed using one or more the following dose reduction techniques: Automated exposure control, adjustment of the MA and/or Kv according to patient size, or use of the iterative reconstruction technique. Stenoses were measured using the NASCET criteria. COMPARISON: None HISTORY: lacunar infarction. Headache. The visualized aortic arch and great vessels are unremarkable. Subclavian arteries are patent No carotid dissection, critical stenosis or occlusion identified. No vertebral dissection, occlusion or abrupt cut off identified. The carotid siphons and vertebral basilar systems are patent. No intracranial aneurysm, dissection, abrupt cut off or critical stenosis identified.. . Reversal cervical lordosis with multilevel degenerative change CT/CT angio head IMPRESSION: No occlusion, critical stenosis or dissection of the extracranial or intracranial circulation. Impression dictated by: Balta Tracy M.D.07/02/2024 2:46 PM Dictation Location: [place] [address] Transcribed By: LAURA 07/02/24 1446 Dictated By: Balta Tracy DO 07/02/24 1439 Signed By: 07/02/24 1446 Normal [facility] Cholesterol in LDL Calc [Mas s/Vol]on 06-11-2024 Cholesterol in LDL [Mass/Vol] 76.6 mg/dL [facility] Comment on above: <100 mg/dl [id number] 0-129 mg/dl NEAR OR ABOVE [id number] mg/dl BORDERLINE [id number] mg/dl HIGH>190 mg/dl VERY HIGH Cholesterol in VLDL Calc [Ma ss/Vol]on 06-11-2024 Cholesterol in VLDL [Mass/Vol] 23.4 mg/dL [facility] Globulin Calc (S) [Mass/Vol] on 06-11-2024 Globulin (S) [Mass/Vol] 3.8 g/dL [facility] Glucose mean value [Mass/vol ume] in Blood Estimated from glycated hemoglobinon 06-11-2024 Average glucose Estimated from glycated hemoglobin (Bld) [Mass/Vol] 192 mg/dL [facility] - Chemistry and C hemistry - challengeon 06-11-2024 Albumin [Mass/Vol] 3.8 g/dL 3.4-5.0 [facility] ALP [Catalytic activity/Vol] 66 U/L 46-116 [facility] ALT [Catalytic activity/Vol] 19 U/L 16-63 [facility] AST [Catalytic activity/Vol] 8 U/L Low 15-37 [facility] Bilirubin [Mass/Vol] 0.4 mg/dL 0.2-1.0 [facility] Bilirubin.direct [Mass/Vol] 0.1 mg/dL 0.0-0.2 [facility] Cholesterol [Mass/Vol] 151 mg/dL <=200 [facility] Cholesterol in HDL [Mass/Vol] 51 mg/dL 40-60 [facility] Comment on above: > or =60 mg/dl - LOW CARDIOVASCULAR RISK<40 mg/dl - HIGH CARDIOVASCULAR RISK Cobalamin (Vitamin B12) [Mass/Vol] 723.0 pg/mL 193.0-986.0 [facility] Protein [Mass/Vol] 7.6 g/dL 6.4-8.2 [facility] Triglyceride [Mass/Vol] 117 mg/dL <=150 [facility] TSH Qn 2.371 m[IU]/L 0.358-3.740 [facility] - Hematology and Cell countson 06-11-2024 HbA1c (Bld) [Mass fraction] 8.3 % High 4.5-6.2 [facility] Comment on above: ADA RECOMMENDED LIMI T 4.0 - 6.0ADA THERAPEUTIC TARGET < 7.0ACTION SUGGESTED> 7.0 Serum or plasma albumin/glob ulin mass ratioon 06-11-2024 Albumin/Globulin [Mass ratio] 1.0 {ratio} [facility] Serum or plasma total choles terol/high density lipoprotein (HDL) cholesterol mass yuniel 06-11-2024 Cholesterol.total/C holesterol in HDL [Mass ratio] 3.0 {ratio} [facility] Comment on above: 3.3 - 4.4 LOW RISK4. 4 - 7.1 AVERAGE RISK7.1 - 11.0 MODERATE RISK>11.0 HIGH RISK MR head/brain wo/w conon MR head/brain wo/w con [facility] [place] [address] MRI Report Signed Patient: Hari Thornton MR#: [id number] [id number] : 1975 Acct:[id number] Age/Sex: 49 / M ADM Date: 05/15/24 Loc: Room: Type: [facility] Attending Dr: Ju BLANC Copies to: JAYASHREE Porter Ordering Provider: JAYASHREE Porter Date of Service: 05/15/24 MR/MR head/brain wo/w con: R25.1, R47.01 MR head/brain wo/w con 05/15/2024 6:46 AM SIGN AND SYMPTOMS: Increased confusion, forgetfulness PROTOCOL: Multiplanar multisequence MR images of the brain were obtained with and without IV contrast CONTRAST: 16 mL of intravenous ProHance COMPARISON: None. FINDINGS: Extra axial spaces: There is mild diffuse cortical atrophy. Hemorrhage: None. Ventricular system: Within normal limits. Basal cisterns: Within normal limits and not effaced. Cerebral parenchyma: There is a remote lacunar infarct in the right deep ngo nuclei. There are a few periventricular and subcortical white matter T2 and FLAIR hyperintense foci suggesting mild chronic microvascular ischemic change. Midline shift: None.. Cerebellum: Within normal limits. Brainstem: Within normal limits. OTHER: Calvarium: Normal marrow signal. Vascular system: Satisfactory flow voids within the anterior and posterior circulation. Visualized Paranasal sinuses: Postoperative changes are noted in the paranasal sinuses. Visualized Orbits: Within normal limits. Visualized upper cervical spine: Within normal limits. Sella and skull base: Within normal limits. MR/MR head/brain wo/w con IMPRESSION: No acute intracranial pathology. There is a remote lacunar infarct in the right deep ngo nuclei. No abnormal postcontrast enhancement. Mild chronic age-related neurodegenerative changes are noted as above. Impression dictated by: Mina Jeffery M.D.05/15/2024 11:00 AM Dictation Location: [place] [address] Transcribed By: [facility] 05/15/24 1100 Dictated By: Mina Jeffery II, MD 05/15/24 1052 Signed By: 05/15/24 1100 Normal [facility] Glucose, Whole Bloodon 05-07 Glucose [Mass/Vol] 173 mg/dL High 74 - 100 mg/dL [facility] Interpretation and review of laboratory results Abnormal [facility] Glucose [Mass/Vol] 173 mg/dL High 74-100 [facility] Basic Metabolic Panelon Anion gap [Moles/Vol] 12 mmol/L 9 - 17 mmol/L [facility] Calcium [Mass/Vol] 10.6 mg/dL High 8.6 - 10. 4 mg/dL [facility] Chloride [Moles/Vol] 103 mmol/L 98 - 107 mmol/L [facility] CO2 [Moles/Vol] 24 mmol/L 20 - 31 mmol/L [facility] Creatinine [Mass/Vol] 0.7 mg/dL 0.7 - 1.2 mg/dL [facility] Est, Glom Filt Rate - [facility] Comment on above: These results are not intended for use in patients <18 years of age. eGFR results are calculated without a race factor using the 2020 CKD-EPI equation. Careful clinical correlation is recommended, particularly when comparing to results calculated using previous equations. The CKD-EPI equation is less accurate in patients with extremes of muscle mass, extra-renal metabolism of creatine, excessive creatine ingestion, or following therapy that affects renal tubular secretion. Glucose [Mass/Vol] 160 mg/dL High 70 - 99 mg/dL [facility] Interpretation and review of laboratory results Abnormal [facility] Potassium [Moles/Vol] 4.8 mmol/L 3.7 - 5.3 mmol/L [facility] Sodium [Moles/Vol] 139 mmol/L 135 - 144 mmol/L [facility] Urea nitrogen [Mass/Vol] 17 mg/dL 6 - 20 mg/dL [facility] Urea nitrogen/Creatinine [Mass ratio] 24 mg/mg High 9 - 20 [facility] Basic Metabolic Profon 05-01 Anion gap [Moles/Vol] 12 mmol/L Normal 9-17 [facility] Comment on above: Performed By: #### B LIZ, CDP #### [facility] [address] [place] [address] [place] [address] Park Superintendent: Ryan Landin MD BUN/CRE Ratio 24 High 9-20 [facility] Comment on above: Performed By: #### B LIZ, CDP #### [facility] [address] [place] [address] [place] [address] Park Superintendent: Ryan Landin MD Calcium [Mass/Vol] 10.6 mg/dL High 8.6-10.4 [facility] Comment on above: Performed By: #### B LIZ, CDP #### [facility] [address] [place] [address] [place] [address] Park Superintendent: Ryan Landin MD Chloride [Moles/Vol] 103 mmol/L Normal 98-107 [facility] Comment on above: Performed By: #### B LIZ, CDP #### [facility] [address] [place] [address] Park Superintendent: Ryan Landin MD CO2 [Moles/Vol] 24 mmol/L Normal 20-31 [facility] Comment on above: Performed By: #### B LIZ, CDP #### [facility] [address] [place] [address] Park Superintendent: Ryan Landin MD Creatinine [Mass/Vol] 0.7 mg/dL Normal 0.7-1.2 [facility] Comment on above: Performed By: #### B LIZ, CDP #### [facility] [address] [place] [address] Park Superintendent: Ryan Landin MD GFR/1.73 sq M.predicted among non-blacks MDRD (S/P/Bld) [Vol rate/Area] mL/min/{1.73_m2} Normal >60 [facility] Comment on above: Result Comment: These results are not intended for use in patients <18 years of age. eGFR results are calculated without a race factor using the 2020 CKD-EPI equation. Careful clinical correlation is recommended, particularly when comparing to results calculated using previous equations. The CKD-EPI equation is less accurate in patients with extremes of muscle mass, extra-renal metabolism of creatine, excessive creatine ingestion, or following therapy that affects renal tubular secretion. Performed By: #### B LIZ, CDP #### [facility] [address] [place] [address] Park Superintendent: Ryan Landin MD Glucose [Mass/Vol] 160 mg/dL High 70-99 [facility] Comment on above: Performed By: #### B LIZ, CDP #### [facility] [address] [place] [address] Park Superintendent: Ryan Landin MD Potassium [Moles/Vol] 4.8 mmol/L Normal 3.7-5.3 [facility] Comment on above: Performed By: #### B LIZ, CDP #### [facility] [address] [place] [address] Park Superintendent: Ryan Landin MD Sodium [Moles/Vol] 139 mmol/L Normal 135-144 [facility] Comment on above: Performed By: #### B MP, CDP #### [facility] [address] [place] [address] Park Superintendent: Ryan Landin MD Urea nitrogen [Mass/Vol] 17 mg/dL Normal 6-20 [facility] Comment on above: Performed By: #### B LIZ, CDP #### [facility] [address] [place] [address] Park Superintendent: Ryan Landin MD CBC with Auto Differentialon 05-01-2024 Basophils (Bld) [#/Vol] 0.07 10*3/uL [facility] Basophils/100 WBC (Bld) 1 % 0 - 2 % [facility] Eosinophils (Bld) [#/Vol] 0.08 10*3/uL [facility] Eosinophils/100 WBC (Bld) 1 % 1 - 4 % [facility] Erythrocyte distribution width (RBC) [Ratio] 13.2 % 11.8 - 14.4 % [facility] Hematocrit (Bld) [Volume fraction] 45.6 % 40.7 - 50.3 % [facility] Hemoglobin (Bld) [Mass/Vol] 15.5 g/dL 13.0 - 17.0 g/dL [facility] Immature granulocytes (Bld) [#/Vol] 0.07 10*3/uL [facility] Immature granulocytes/100 WBC (Bld) 1 % High 0 [facility] Interpretation and review of laboratory results Abnormal [facility] Lymphocytes/100 WBC (Bld) 25 % 24 - 43 % [facility] Lymphocytes/100 WBC (Bld) 1.70 % [facility] MCH (RBC) [Entitic mass] 31.6 pg 25.2 - 33.5 pg [facility] MCHC (RBC) [Mass/Vol] 34.0 g/dL 28.4 - 34.8 g/dL [facility] MCV (RBC) [Entitic vol] 92.9 fL 82.6 - 102.9 fL [facility] Monocytes/100 WBC (Bld) 9 % 3 - 12 % [facility] Monocytes/100 WBC (Bld) 0.60 % [facility] Neutrophils/100 WBC (Bld) 63 % 36 - 65 % [facility] Nucleated RBC/100 WBC (Bld) [Ratio] 0.0 % 0.0 per 100 WBC [facility] Platelet mean volume (Bld) [Entitic vol] 9.5 fL 8.1 - 13.5 fL [facility] Platelets (Bld) [#/Vol] 255 10*3/uL [facility] RBC (Bld) [#/Vol] 4.91 10*6/uL 4.21 - 5.7 7 m/uL [facility] Segmented neutrophils/100 WBC (Bld) 4.18 % [facility] WBC other (Bld) [#/Vol] 6.7 [facility] CBC with Diffon 05-01-2024 Abs. Basophil 0.07 k/uL Normal 0.00-0.20 [facility] Comment on above: Performed By: #### B LIZ, CDP #### [facility] [address] [place] [address] [place], [place] [id number] Park Superintendent: Ryan Landin MD Abs.Imm.Granulocyte 0.07 k/uL Normal 0.00-0.30 [facility] Comment on above: Performed By: #### B LIZ, CDP #### [facility] [address] [place] [address] Park Superintendent: Ryan Landin MD Abs.Neutrophil (Seg) 4.18 k/uL Normal 1.50-8.10 [facility] Comment on above: Performed By: #### B LIZ, CDP #### [facility] [address] [place] [address] Park Superintendent: Ryan Landin MD Basophils/100 WBC (Bld) 1 % Normal 0-2 [facility] Comment on above: Performed By: #### B LIZ, CDP #### [facility] [address] [place] [address] [place] [address] Park Superintendent: Ryan Landin MD Eosinophils (Bld) [#/Vol] 0.08 10*3/uL Normal 0.00-0.44 [facility] Comment on above: Performed By: #### B MP, CDP #### [facility] [address] [place] [address] Dr[place], [place] [id number] Park Superintendent: Ryan Landin MD Eosinophils/100 WBC (Bld) 1 % Normal 1-4 [facility] Comment on above: Performed By: #### B LIZ, CDP #### [address] [place], [place] [id number] Park Superintendent: Ryan Landin MD Erythrocyte distribution width (RBC) [Ratio] 13.2 % Normal 11.8-14.4 [facility] Comment on above: Performed By: #### B LIZ, CDP #### [address] [place] [address] Park Superintendent: Ryan Landin MD Hematocrit (Bld) [Volume fraction] 45.6 % Normal 40.7-50.3 [facility] Comment on above: Performed By: #### B LIZ, CDP #### [address] [place] [address] Park Superintendent: Ryan Landin MD Hemoglobin (Bld) [Mass/Vol] 15.5 g/dL Normal 13.0-17.0 [facility] Comment on above: Performed By: #### B LIZ, CDP #### [address] [place] [address] Park Superintendent: Ryan Landin MD Immature granulocytes/100 WBC (Bld) 1 % High 0 [facility] Comment on above: Performed By: #### B LIZ, CDP #### [facility] [address] [place], [place] [id number] Park Superintendent: Ryan Landin MD Lymphocytes (Bld) [#/Vol] 1.70 10*3/uL Normal 1.10-3.70 [facility] Comment on above: Performed By: #### B MP, CDP #### [facility] [address] [place], [facility] Park Superintendent: Ryan Landin MD Lymphocytes/100 WBC (Bld) 25 % Normal 24-43 [facility] Comment on above: Performed By: #### B LIZ, CDP #### [facility] [address] [place], [place] [id number] Park Superintendent: Ryan Landin MD MCH (RBC) [Entitic mass] 31.6 pg Normal 25.2-33.5 [facility] Comment on above: Performed By: #### B LIZ, CDP #### [address] [place], [place] [id number] Park Superintendent: Ryan Landin MD MCHC (RBC) [Mass/Vol] 34.0 g/dL Normal 28.4-34.8 [facility] Comment on above: Performed By: #### B LIZ, CDP #### [address] [place], [facility]83 Park Superintendent: Ryan Landin MD MCV (RBC) [Entitic vol] 92.9 fL Normal 82.6-102.9 [facility] Comment on above: Performed By: #### B LIZ, CDP #### [address] [place] [address] Park Superintendent: Ryan Landin MD Monocytes (Bld) [#/Vol] 0.60 10*3/uL Normal 0.10-1.20 [facility] Comment on above: Performed By: #### B LIZ, CDP #### [facility] [address] [place], [place] [id number] Park Superintendent: Ryan Landin MD Monocytes/100 WBC (Bld) 9 % Normal 3-12 [facility] Comment on above: Performed By: #### B MP, CDP #### [facility] [address] [place], [place] [id number] Park Superintendent: Ryan Landin MD Neutrophil (Seg) 63 % Normal 36-65 [facility] Comment on above: Performed By: #### B MP, CDP #### [facility] [address] [place], [place] [id number] Park Superintendent: Ryan Landin MD NRBC Automated 0.0 per 100 WBC Normal 0.0 [facility] Comment on above: Performed By: #### B MP, CDP #### [address] [place], [place] [id number] Park Superintendent: Ryan Landin MD Platelet mean volume (Bld) [Entitic vol] 9.5 fL Normal 8.1-13.5 [facility] Comment on above: Performed By: #### B MP, CDP #### [address] [place], [place] [id number] Park Superintendent: Ryan Landin MD Platelets (Bld) [#/Vol] 255 10*3/uL Normal 138-453 [facility] Comment on above: Performed By: #### B MP, CDP #### [facility] [address] [place] [address] Dr[place], [place] [id number] Park Superintendent: Ryan Landin MD RBC (Bld) [#/Vol] 4.91 10*6/uL Normal 4.21-5.77 [facility] Comment on above: Performed By: #### B MP, CDP #### [address] [place], [place] [id number] Park Superintendent: Ryan Landin MD WBC (Bld) [#/Vol] 6.7 10*3/uL Normal 3.5-11.3 [facility] Comment on above: Performed By: #### B MP, CDP #### [facility] [address] [place] [address] Park Superintendent: Ryan Landin MD EKG 12 LeadOrdered By: Zheng Anderson on 05-01-2024 Atrial Rate 75 BPM [employer] Work Phone: P [place] 70 degrees [employer] Work Phone: P-R Interval 158 ms [employer] Work Phone: Q-T Interval 390 ms [employer] Work Phone: QRS Duration 86 ms [employer] Work Phone: QTc Calculation (Bazett) 435 ms [employer] Work Phone: R [place] 83 degrees [facility] [employer] [facility] Work Phone: T [place] 58 degrees [employer] Work Phone: Ventricular Rate 75 BPM [employer] [employer] [employer] Work Phone: [employer] Work Phone: EKG 12 Leadon 05-01-2024 Normal sinus rhythm with sinus arrhythmia Normal ECG When compared with ECG of 16-MAY-2022 17:35, No significant change was found Confirmed by COCO ANDERSON ([id number]) on 05/01/2024 12:05:02 PM [facility] Coco Anderson MD - 05/01/2024 Normal sinus rhythm with sinus arrhythmia Normal ECG When compared with ECG of 16-MAY-2022 17:35, No significant change was found Confirmed by COCO ANDERSON ([id number]) on 05/01/2024 12:05:02 PM [employer] KIDNEYS BLADDERon 023 US KIDNEYS BLADDER EXAMINATION: US KIDNEYS BLADDER HISTORY: Abdominal pain ; right flank pain for 4 months COMPARISON: No relevant comparison available. TECHNIQUE: Ultrasound examination was performed of the kidneys and urinary bladder. FINDINGS: RIGHT KIDNEY: No evidence of pelvocaliectasis, mass, or calculi. Normal renal cortical parenchymal echogenicity. Color Doppler demonstrates blood flow within the kidney. Kidney: LEFT KIDNEY: Small cyst within superior pole. No evidence of pelvocaliectasis, mass, or calculi. Normal renal cortical parenchymal echogenicity. Color Doppler demonstrates blood flow within the kidney. Kidney: BLADDER: No visible wall thickening, mass, or calculi. Post void residual: 2 mL URETERAL JETS: Present on right. Not seen on left during time course of study. IMPRESSION: 1. No acute or specific findings to account for patient's symptoms. Electronically authenticated by: ERIKA HUMPHREY Date: 2023-03-14 10:06 Normal [facility] US KIDNEYS BLADDER [employer] Other US SINGLE QUAD RT UPPERon US SINGLE QUAD RT UPPER EXAMINATION: US SINGLE QUAD RT UPPER HISTORY: Abdominal pain ; right flank pain for 4 months COMPARISON: No relevant comparison available. TECHNIQUE: Transabdominal evaluation of the right upper quadrant. FINDINGS: LIVER: Normal size and echotexture. Color Doppler demonstrates patent hepatic veins. PORTAL VEIN: Duplex Doppler demonstrates normal hepatopetal flow pattern with flow velocity averaging 22 cm/s. GALLBLADDER: Nondistended gallbladder with wall thickness at upper limits of normal, 3 mm. No stones. Negative sonographic Hansen's sign. BILIARY: No abnormal dilation or stones. Common bile duct diameter is within normal limits. PANCREASE: No visible mass, abnormal atrophy, or duct dilation. KIDNEY: No hydronephrosis. No visible mass or stones. Size: 12.0 x 6.6 x 6.2 cm IMPRESSION: 1. No acute or specific findings to account for patient's symptoms. Electronically authenticated by: ERIKA HUMPHREY Date: 2023-03-14 10:04 Normal [facility] A1C with Estimated Average G luon 02-08-2023 A1C with Estimated Average Glu [employer] Other BILIRUBIN CONJUGATED (DIRECT )on 02-08-2023 BILI, CONJUGATED 0.1 mg/dL Normal 0.0-0.2 [facility] [place] Comment on above: Performed By: #### P HOS, MG, DBIL, LIPID, VALP, CMP #### [facility] [address] [place] [address] Dr. Pam Granger CBC AUTO DIFFon 02-08-2023 BASO # 0.0 103/ul Normal 0.0-0.1 [facility] Comment on above: Performed By: #### C BC #### [facility] [address] [place] [address] Dr. Pam Granger Basophils/100 WBC (Bld) 0.9 % Normal 0.2-2.[address] [facility] Comment on above: Performed By: #### C BC #### [facility] [address] [place] [address] Dr. Pam Granger EO # 0.1 103/ul Normal 0.0-0.[address] [facility] Comment on above: Performed By: #### C BC #### [facility] [address] [place] [address] Dr. Pam Granger Eosinophils/100 WBC (Bld) 2.1 % Normal 0.9-7.[address] [facility] Comment on above: Performed By: #### C BC #### [facility] [address] [place] [address] Dr. Pam Granger Erythrocyte distribution width (RBC) [Ratio] 13.5 % Normal 11.0-15.[address] [facility] Comment on above: Performed By: #### C BC #### [facility] [address] [place] [address] Dr. Pam Granger Hematocrit (Bld) [Volume fraction] 43.8 % Normal 42.0-54.[address] [facility] Comment on above: Performed By: #### C BC #### [facility] [address] [place] [address] Dr. Pam Granger Hemoglobin (Bld) [Mass/Vol] 15.0 g/dL Normal 14.0-18.[address] [facility] Comment on above: Performed By: #### C BC #### [facility] [address] [place] [address] Dr. Pam Granger IG # 0.04 10e3/ul Critically high 0.00-0.03 [facility] Comment on above: Performed By: #### C BC #### [facility] [address] [place] [address] Dr. Pam Granger IG % 0.9 % Critically high 0.0-0.5 [facility] Comment on above: Performed By: #### C BC #### [facility] [address] [place] [address] Dr. Pam Granger LYMPH # 1.5 103/ul Normal 1.2-3.8 [facility] Comment on above: Performed By: #### C BC #### [facility] [address] [place] [address] Dr. Pam Granger Lymphocytes/100 WBC (Bld) 34.9 % Normal 20.5-60.0 [facility] Comment on above: Performed By: #### C BC #### [facility] [address] [place] [address] Dr. Pam Granger MANUAL DIFF REQ NO Normal [facility] Comment on above: Performed By: #### C BC #### [facility] [address] [place] [address] Dr. Pam Granger MCH (RBC) [Entitic mass] 31.2 pg Normal 25.9-34.0 [facility] Comment on above: Performed By: #### C BC #### [facility] [address] [place] [address] Dr. Pam Granger MCHC (RBC) [Mass/Vol] 34.2 g/dL Normal 29.9-35.[address] [facility] Comment on above: Performed By: #### C BC #### [facility] [address] [place] [address] Dr. Pam Granger MCV (RBC) [Entitic vol] 91.1 fL Normal 80.0-94.0 [facility] Comment on above: Performed By: #### C BC #### [facility] [address] [place] [address] Dr. Pam Granger MONO # 0.6 103/ul Normal 0.3-0.8 [facility] Comment on above: Performed By: #### C BC #### [facility] [address] [place] [address] Dr. Pam Granger Monocytes/100 WBC (Bld) 12.6 % Critically high 1.7-12.0 [facility] Comment on above: Performed By: #### C BC #### [facility] [address] [place] [address] Dr. Pam Granger NEUT # 2.1 103/ul Normal 1.4-6.[address] [facility] Comment on above: Performed By: #### C BC #### [facility] [address] [place] [address] Dr. Pam Granger Neutrophils/100 WBC (Bld) 48.6 % Normal 43.0-75.0 [facility] Comment on above: Performed By: #### C BC #### [facility] [address] [place] [address] Dr. Pam Granger Platelet mean volume (Bld) [Entitic vol] 9.0 fL Critically low 9.5-13.5 [facility] Comment on above: Performed By: #### C BC #### [facility] [address] [place] [address] Dr. Pam Granger PLT 238 103/ul Normal 150-[address] [facility] Comment on above: Performed By: #### C BC #### [facility] [address] [place] [address] Dr. Pam Granger RBC 4.81 106/ul Normal 4.70-6.[address] [facility] Comment on above: Performed By: #### C BC #### [facility] [address] [place] [address] Dr. Pam Granger WBC 4.4 103/ul Normal 4.0-11.[address] [facility] Comment on above: Performed By: #### C BC #### [facility] [address] [place] [address] Dr. Pam Granger DEPAKENE/ VALPROIC ACIDon DEPAKENE 54.5 ug/ml Normal 50.0-100.0 [facility] Comment on above: Performed By: #### A 1C #### [facility] [address] [address] [address] Pam Granger GLYCOHEMOGLOBIN A1Con 2022 ADA RECOMMENDATION SEE BELOW Normal [facility] Comment on above: Result Comment: ADA RECOMMENDED LIMIT 4.0 - 6.0 ADA THERAPEUTIC TARGET < 7.0 ACTION SUGGESTED > 7.0 Performed By: #### A 1C #### [facility] [address] [place] [address] Dr. Pam Granger Glucose [Mass/Vol] 174 mg/dL Normal [facility] Comment on above: Performed By: #### A 1C #### [facility] [address] [place] [address] Dr. Pam Granger HbA1c (Bld) [Mass fraction] 7.7 % Critically high 4.5-6.2 [facility] Comment on above: Performed By: #### A 1C #### [facility] [address] [place] [address] Dr. Pam Granger LIPID PROFILEon 02-08-2023 CHOL-HDL RATIO NORM SEE BELOW Normal [facility] Comment on above: Result Comment: 3.3 - 4.4 LOW RISK 4.4 - 7.1 AVERAGE RISK 7.1 - 11.0 MODERATE RISK >11.0 HIGH RISK Performed By: #### P HOS, MG, DBIL, LIPID, VALP, CMP #### [facility] [address] [place] [address] Dr. Pam Granger Cholesterol [Mass/Vol] 163 mg/dL Normal <=200 [facility] Comment on above: Performed By: #### P HOS, MG, DBIL, LIPID, VALP, CMP #### [facility] [address] [place] [address] Dr. Pam Granger Cholesterol in HDL [Mass/Vol] 50 mg/dL Normal 40-60 [facility] Comment on above: Performed By: #### P HOS, MG, DBIL, LIPID, VALP, CMP #### [facility] [address] [address] [address] Pam Granger Cholesterol in LDL [Mass/Vol] 83.6 mg/dL Normal [facility] Comment on above: Performed By: #### P HOS, MG, DBIL, LIPID, VALP, CMP #### [facility] [address] [address] [address] Pam Granger Cholesterol.total/C holesterol in HDL [Mass ratio] 3.3 {ratio} Normal [facility] Comment on above: Performed By: #### P HOS, MG, DBIL, LIPID, VALP, CMP #### [facility] [address] [address] [address] Pam Granger HDL NORMAL > or = 60 mg/dl - LOW CARDIOVASCULAR RISK <40 mg/dl - HIGH CARDIOVASCULAR RISK Normal [facility] Comment on above: Performed By: #### P HOS, MG, DBIL, LIPID, VALP, CMP #### [facility] [address] [address] [address] Pam Granger LDL CALC NORMAL SEE BELOW Normal [facility] Comment on above: Result Comment: <100 mg/dl OPTIMAL 100 - 129 mg/dl NEAR OR ABOVE OPTIMAL 130 - 159 mg/dl BORDERLINE HIGH 160 - 189 mg/dl HIGH >190 mg/dl VERY HIGH Performed By: #### P HOS, MG, DBIL, LIPID, VALP, CMP #### [facility] [address] [address] [address] Pam Granger Triglyceride [Mass/Vol] 147 mg/dL Normal <=[address] [facility] Comment on above: Performed By: #### P HOS, MG, DBIL, LIPID, VALP, CMP #### [facility] [address] [address] [address] Pam Granger VLDL CALC 29.4 mg/dL Normal [facility] Comment on above: Performed By: #### P HOS, MG, DBIL, LIPID, VALP, CMP #### [facility] [address] [place] [address] Dr. Pam Granger MAGNESIUMon 02-08-2023 Magnesium [Mass/Vol] 2.0 mg/dL Normal 1.8-2.4 [facility] Comment on above: Performed By: #### A 1C #### [facility] [address] [place] [address] Dr. Pam Granger PHOSPHORUSon 02-08-2023 Phosphate [Mass/Vol] 3.4 mg/dL Normal 2.6-4.7 [facility] Comment on above: Performed By: #### P HOS, MG, DBIL, LIPID, VALP, CMP #### [facility] [address] [place] [address] Dr. Pam Granger PROF 14(COMP METB)on 023 Albumin [Mass/Vol] 4.0 g/dL Normal 3.4-5.0 [facility] Comment on above: Performed By: #### A 1C #### [facility] [address] [place] [address] Dr. Pam Granger Albumin/Globulin [Mass ratio] 1.2 {ratio} Normal [facility] Comment on above: Performed By: #### A 1C #### [facility] [address] [place] [address] Dr. Pam Granger ALP [Catalytic activity/Vol] 69 U/L Normal 46-116 [facility] Comment on above: Performed By: #### A 1C #### [facility] [address] [place] [address] Dr. Pam Granger ALT [Catalytic activity/Vol] 17 U/L Normal 16-63 [facility] Comment on above: Performed By: #### A 1C #### [facility] [address] [place] [address] Dr. Pam Granger Anion gap [Moles/Vol] 19.7 mmol/L Normal [facility] Comment on above: Performed By: #### A 1C #### [facility] [address] [place] [address] Dr. Pam Granger AST [Catalytic activity/Vol] 11 U/L Critically low 15-37 [facility] Comment on above: Performed By: #### A 1C #### [facility] [address] [place] [address] Dr. Pam Granger Bilirubin [Mass/Vol] 0.3 mg/dL Normal 0.2-1.0 [facility] Comment on above: Performed By: #### A 1C #### [facility] [address] [place] [address] Dr. Pam Granger Calcium [Mass/Vol] 9.8 mg/dL Normal 8.5-10.1 [facility] Comment on above: Performed By: #### A 1C #### [facility] [address] [place] [address] Dr. Pam Granger Chloride [Moles/Vol] 106 mmol/L Normal 98-107 [facility] Comment on above: Performed By: #### A 1C #### [facility] [address] [place] [address] Dr. Pam Granger CO2 [Moles/Vol] 24.4 mmol/L Normal 21.0-32.0 [facility] Comment on above: Performed By: #### A 1C #### [facility] [address] [place] [address] Dr. Pam Granger Creatinine [Mass/Vol] 0.78 mg/dL Normal 0.70-1.30 [facility] Comment on above: Performed By: #### A 1C #### [facility] [address] [place] [address] Dr. Pam Granger EGFR-AF PAKISTANI >60 Normal >=60 [facility] Comment on above: Performed By: #### A 1C #### [facility] [address] [place] [address] Dr. Pam Granger EGFR-NON AF PAKISTANI >60 Normal >=60 [facility] Comment on above: Performed By: #### A 1C #### [facility] [address] [place] [address] Dr. Pam Granger Globulin (S) [Mass/Vol] 3.4 g/dL Normal [facility] Comment on above: Performed By: #### A 1C #### [facility] [address] [place] [address] Dr. Pam Granger Glucose [Mass/Vol] 162 mg/dL Critically high 74-106 [facility] Comment on above: Performed By: #### A 1C #### [facility] [address] [address] [address] Pam Granger Potassium [Moles/Vol] 4.1 mmol/L Normal 3.5-5.1 [facility] Comment on above: Performed By: #### A 1C #### [facility] [address] [address] [address] Pam Granger Protein [Mass/Vol] 7.4 g/dL Normal 6.4-8.2 [facility] Comment on above: Performed By: #### A 1C #### [facility] [address] [address] [address] Pam Granger Sodium [Moles/Vol] 146 mmol/L Critically high 136-145 [facility] Comment on above: Performed By: #### A 1C #### [facility] [address] [place] [address] Dr. Pam Granger Urea nitrogen [Mass/Vol] 9.0 mg/dL Normal 7.0-18.0 [facility] Comment on above: Performed By: #### A 1C #### [facility] [address] [place] [address] Dr. Pam Granger Urea nitrogen/Creatinine [Mass ratio] 11.5 mg/mg Normal [facility] Comment on above: Performed By: #### A 1C #### [facility] [address] [place] [address] Dr. Pam Granger TSHon 02-08-2023 TSH 3.967 uIU/mL Critically high 0.358-3.740 uIU/mL [employer] Other TSH see note [email or web address] [facility] [employer] Other TSH 3.967 uIU/mL Critically high 0.358-3.740 [facility] Comment on above: Performed By: #### A 1C #### [facility] [address] [place] [address] Dr. Pam Granger XR CHEST 2 Von 02-08-2023 XR CHEST 2 V EXAM: XR CHEST 2 V HISTORY: Dyspnea COMPARISON: None. TECHNIQUE: PA and lateral views of the chest. FINDINGS: The cardiomediastinal silhouette is normal. No focal consolidation is identified. There is no pneumothorax. No pleural effusion is noted. The osseous structures are intact. IMPRESSION: No acute cardiopulmonary process. Electronically authenticated by: MINA PALACIOS Date: 2023-02-08 09:39 Normal [facility] Patient Letter FTMCon 2022 Patient Letter [facility] January 16, 2023 HARI THORNTON [address] [id number] HARI THORNTON 1975 Below is a summary of the results of your recent colonoscopy. Your results have been sent to your primary care provider along with recommendations on when the procedure should be repeated. COLONOSCOPY WITH POLYP REMOVAL _X__ Normal - NO CANCER Type of polyp tubular adenoma - not cancer but can become cancer if not removed. Additional colonoscopies will be necessary to monitor your condition and assure that new polyps have not developed. Based on your results we are recommending you repeat the procedure in 5 years You will be placed in our reminder system and will receive a reminder letter prior to your next due date. [facility] [phone] Normal [facility] Reminderson 01-16-2023 Reminders - From: Deonna Russo I To: DAHLIA - Reminders/Recalls; Sent: 01/16/2023 12:29:41 EST Show up: 12/02/2027 12:29:00 EST Subject: Colonoscopy Recall Due Date/Time: 01/02/2028 12:29:00 EST Reminder Message Please Remember to:_ PATIENT RELATED REMINDER:_ ( ) Call Patient ( ) Ask Patient to ( ) Call Relative ( ) Schedule Patient ( ) Follow up on Results ( ) Other: Repeat colonoscopy in 5 year(s) due to tubular adenoma and severe diverticulosis (2027). Normal [facility] IntraOperative Documentson 0 01-09-2023 IntraOperative Documents [id number] #1.00CD:127 Normal [facility] Coding Summary.on 01-07-2023 Coding Summary. CD:[id number] Gh0bWw+PGhlYWQ+PE1FV JQqQ89reVMtlR9QM0zUO Z7QQGVVOFQRCD8ETZ7xu HO5JYlwS5WlfsVz RstnrGIzEC06YKs5DHS6 aVtxVOnecU3khYHnO4r1 VaHdMR06wA07CCeuOXMo IkQ3UjZtxhhdjNJk E3iaOwAgeMUxZbx+PHRh YmxlIHdpZHRoPScxMDAl CiLynItuRV7dFb9nFFFx LWNvbGxhcHNlOiBj j6onVKIlOIncOB4mpZwb L6OkeJY1EXLzh9h0Ju72 dHI+DLYbYMP8jYuoXMxr u910WoUvt5tsEZV9 tNZwBOttKTX5H30xh6R6 NZHuWYZqCQQ6eHX6iI6g eZelcjmaJ9VhxDXtMlF7 RWQ8eYRaeT1lrBal bspogT9iOny+Z23SGR8F ZEKYSC0YXtg3U3SrJvyg dHI+NT45PWOtEC40pESl cROtm4frjDn5QkKn LUSlVNY0wKjgECnlu6Ft WGGzH20pzNImq5A4TIYi iUajdRRcXaZbeRS6qQ5b GFnpbrigf9uarnjw Csjgn5eenj76fX76C77l XJfuKBFvRFW8JBWiRZRv bThyne2rjL4bOf0+IDxj j9gbg6wodXx8UfMv AOGedqVmzYokNOU9w8Xs Kk57G6QfdUlsi8FdQaa9 ij29xNJyt5R8rZS6VIdk ZCZoaT7eAGhoPdA2 CCNkHsNxgI63hYApNTsi Xi8jiVvddYzuAE2rBOJv mznqKUCuuH1mYANeyDPc qAovHV2kCVWfbfsk t083QnNxLLN7CIGqxBEi T1CtaF0jEkTxPEJzZZSn Y2XklTTnUSfzH700VJxw MtA1WJMmjxYnH7Hd AFUrxJgqQlN1d9K0Zo9N c7OcnrmbWJB2PXqsVYEe OrLsXxIvQeH2U2YlHvp5 EOQykBewWI9qN6Za HTQgcmlbhxyalQU9IUNw JBExlA33nBWvQLcbAc8r x0F1w986ZHEvZULflW33 Pc2ysXpyOEJwdWAA sJ7uhtkst0xmsrmaStOp ZTOtIBw6TNh9DQHgfBgu HyLgKPH1VfR0XHA0tULo jK2tbJbkxcomcK9a Oyc+V47mrI2oTRP1GUA6 dpxxKWBvazMvXB89QL75 M7BeTttntDVfbFQ+PGRp osSloMgzDO8aZeZg w4mcm9LnCFdbU8LfUGMn LHaeYkq4CGCuBSY7dWJ6 oK7vYICkGNzjv6R3jDE1 P4JiztYrfr5pl5ak BUPeOKhfW40ooFZrc8N7 CYHaaIW1YXQdoEkqSfZo pU96Vxp+STMuzBexg7Pw Icuph5yqk7bqnTf6 IjMwJSIgdmFsaWduPSJ0 u7WvDu26T76xJSvfSMYe WEHcBZIoDLWldXqbyh2l hC7eAj3+PGNvbCB3 gXO2dG1fULUoAhO0EAik U399LwXxrLUxNquxg8wk p1vifLk2CjGpJPXcabNc aGceFID5o7NpVm15 T45bQLlqJNDbJRRkVQJi HHBsuGdzti9unV1sEi0+ BL4qu3pvci25rE33pNZ+ KZAzEDE5oLppJAgr QVIzrQ1mXEhqRkQ8ETDb YpDlhX45xTUnCIelWz6w iLwqvOetMT9dENLibwkd c228PqFmg1pfUMHq kLMzXGztSKL6R13or4D2 TMZxEXCbBAZ7oBY7nU3q bGlnbjogbGVmdDsgdmVy nJroMEbjCYbfM592 IHRvcDsnPlBhdGllbnQg HaSoNBz9G7QjQco8YLJb oWpeWI5whAOyKYtqWi4x fFnhkZqlNP0rHATz guoya656AvRem3tbCOOr hVKmUObhQTG4Y31dj2H3 VKDxRYDeFOT0qWV6oR7m bGlnbjogbGVmdDsg olTqzZjlBXkvJBvqS525 IHRvcDsnPkJpcnRoIERh iWY7HY30IX30vEWbx7X1 aEJ6X4RiULKibmbv unfbgWE4EXBfGTDnxN26 Nv0vsUekWk7uIVTtJMA9 TEMyyTBgP9AttS5nRgBb KZRpZQEcU0ChaWEg KKosR094UCjeWfD3AVIv xhMxK9EmXBYagVkfMhC9 z2N2Gg2JM5E3YE90ZN15 eEFyx1Y7pGV5N4Ok CSTewcpdcqqqdMO9QUBr UEZdmI02Jr3wmDbzNy0z TLMlXQC0FGCrrQLbX2Vx sU3oPlYzILRpZCWp Q3DagBKgIYstH688PIrh SzZ5UYSbsyTxW4UqPYYz kPliOcO0j2T0Cg6WTDw3 HX69ND40eZWup6Z7 aUP9U4FnMPRcueuyxlbt tUT8TTJtSBKidZ97Nj3h hDfaQg3qXPWkFNW4ZBXt uLZmC6UhuK2vWgDr VGHpADXgC9TrpBCbVIth M269AHbwTkA9CZQqziFo U2FyNHZywQzaIzX4v1K0 Bu2DICGbCN71ESY3 fNY3AH41OO41Y6QuQlwo dGFibGU+PHRhYmxlIHdp ZHRoPScxMDAlJyBzdHls LW5iAz2bBBMqSRQu pZtxaYKwQaMbe2iqJBRd SVbdMW2vyIypI5RjgKV0 LHEid8k1Qq15H83fL5Hf dXA+JJXtwXS7wXB5 bU1rKbMaImI7SSyuF040 GlLmdQHuCiuqx8gft7vo rYi2YiB8YXZlmsHuxJqv WZB6m7JoZz60V59y IHdpZHRoPSIxNSUiIHZh mNvhaw4wcU8qYk6+PGNv sTJ4aYR8oN6uPbMqXcB0 CVoaY921WiGuiXLq Hemlf7tbw9wtbXq8PiAa NORdcySniLncQXS6f2Ja Zx73T8HgcQpto3XeWak3 bm53uRBqt6B3yKO2 E9NmQJHcrezvqQWgpIpt PI0sWYNuwfqaFFWpfN9j QCCgH2i6EaLnFuX0DFnd Y7GgzhL0XVDqxIUa GDafVRJ0X36pe4X5IIRv LXXmBSC8hSK9sC0vhLsm bjogbGVmdDsgdmVydGlj ISjfZBvbW905LEIl aTqwOSDwpE6oKPHywPBt qSekQZ8fQGOjniekTdlC EM8STPBYGYnWWXGJWLH3 P3FkGlh8NBMztTti YI9ppVTqMFcbFn0dzPqr zQpaYR2dZKBezbtqMEAa jQ5hIMAalOVjbHphKO0p ANTltjjvz726BvOs LPN6ZOZaqHVaP6WefT6i UtXwZVLqYZWhN8ZqkMFo ZSmrM327DFcdTfS5QPYp vvEbY4AcFQQhqEht QcJ1b6T3Ip9iJV0qEY4s COmsLJ49VZ32oTJll3T5 cTN4Z0ZeDWFussxxejzn dQL2NNIrGWXwxJ82 hCDlKSvuJx7sm1R0i484 HJClGMVgkG98Yp7bqFaj YYSxwBSZmH5fksqso0vo cjogIzAwMDAwMDt0 BCn7ENJqiNlyQpNyJVC9 YeQ4ZXP2rOHtfH4qkXpl jjqrxT3aHtl+NDkgWWVh oeH4N8YfDtt4LEXx zLwlOR9iaNPwTMnlOb9v wHwxoEalXD7tDIReligx TPMglA6pSRTtgTClrRhm NR7jUUYlncttf452 KxFiXFH4GJMieGRrH0Fr sD2fHgFiJPPeNBRlQ8Vz wVXkCXzuA543CIduZgT4 YRQcchZbX4JkCVDb xXrwGvA0d6V0Zc0OFBjk EP04DT60xVSug5N9kIO3 O0IyNZSpfusrevoiqMI7 NGKmADPxlP77pNZz RYjcJw3wj0P7i798LSNd JVRazM29An3wpZskHLVp iIHHbP6zisnks1ztyghq UiBhBHTiUHp4PQq2 FMPylLmcSrTtMOC8XdU9 JUM7hASwqT2hvJcddxtr jK3sTot+Y2F2yGM4tSVr dDwvdGQ+XE60qv27 W8JmShifTyl4FBHyPGJ3 jGQ6lL0hERCvBPevr1F0 cFS4N5AbwcMzij9by0tf QFYhTTjtJ26fcGSu s4I9NZHffVU1LXXwaZrr BeKerP84Nej+PGNvbGdy p9VzUxgrd5eot8jbvUn3 IjMwJSIgdmFsaWdu WMX6w5MvAg34U44eAEjk ZHRoPSIzMCUiIHZhbGln hd2akB1xIc8+PGNvbCB3 vGN4yB3cFbUxWxM3 QHihU402ZsMmpMFeQohw r4syt6lqcFv6XoFwNWAt hxTwtTnbIFV4t5CtUs37 S6EwzIoqw6IpCpn4 em12kUJnr1J1zEL3Y5Ka XPMsnwcvbQUfpNfaCI8y HILmlvofXKNmsE5oUISn B3b6ArJaKzQ1XJht X5BrnfI1OLZgjJOaXKNm dJEMeJ7rdfmlm7cchrlo DaVhNKGmILq8HYd1SSVw wItbQxJaJWQ3GxZ3 UOI5tHGkhB1bjEkvvflh uZ3vYdv+KSx1x4rflNNi JM1vrEN3IX54LF03rQAj h3R4oJJ7H4PrABFw nifylwljdBD7YUKnPKMz oS03Rr8luYhaSm4gYRRz DUW4IHMxbAJaQ0TzyF1d RvFzQXJpSQSaX5Gd iKTsQOxzQ265UJqpXbO2 EAYyrgVlN6RoKBBqdNgw GfE1d4R5Xc1AAV48SJ27 KB17yKNgf8Q2yUL1 J2OxYOMflanisjzcgIZ2 KAKoNFZvbX74Qg3hdHow Hh9pNAIsWFS7WIUcpEDa D0GdgK3kDjKwCILc OUNnH0NjdDWrSWdkF734 VGprNpX1LTKikiMgR7Sg MNZtdNhnQgM3x8K4Qv9C Yr98GM26NA67sFQr r4C6dMA1X4MkLKNltdny bpmkeFZ7MWAkXHMliY02 Nt7xtMvoDn2iAANvUGT9 TKPyhDOcM2CqbW1d PvDwFVGpDTApB5MhaRAp SRjnE456XCaeGbX4ODKt weSmL7BjWWKeeJoiIpY2 o3D7Nx6ZGMamrbm7 D8RxGhbrtHA+OH77VMFg YH19oIZwxSIwx6yrhYv0 PdEjWEAvNYN1yKuaFXwd t0PwLGTqN89jdYQh c2U6 (more content not included)... [facility] Postoperative Documentson Postoperative Documents [id number] 7#1.00CD:127 [facility] Consenton 01-03-2023 Consent [id number]#1.00CD:127 [facility] Discharge Instructionson Discharge Instructions [id number] 7#1.00CD:127 [facility] IntraOperative Documentson 0 01-03-2023 IntraOperative Documents [id number] 2#1.00CD:127 [facility] Main OR Intraoperative Recor don 01-03-2023 Main OR Intraoperative Record IntraOp Document Type FT Summary Primary Physician: Sylvester FITZPATRICK MD Finalized Date/Time: 01/03/23 09:19:49 Pt. Name: HARI THORNTON/Sex: 1975 Male Med Rec #: [id number] Physician: Sylvester FITZPATRICK MD Financial #: [id number] Pt. Type: O Room/Bed: / Admit/Disch: 01/02/23 11:32:43 - 01/02/23 23:59:59 Institution: Case Times FT Entry 1 Patient Times In Room 01/02/23 12:23:00 Out Room 01/02/23 12:49:00 Procedure Times Start 01/02/23 12:30:00 Stop 01/02/23 12:47:00 Anesthesia Times Start 01/02/23 12:23:00 Stop 01/02/23 12:49:00 Time at [facility] 01/02/23 12:39:00 Last Modified By: Iza BANSAL, Briseida Lipscomb 01/02/23 12:50:01 General Comments: 1233 EGD completed/KS,RN 1235 Colonoscopy began/KS,RN 01/03/23 Chart opened to review and send charges [facility]oth CSFA Case Attendance FT Entry 1 Entry 2 Entry 3 Case Attendee Marilyn DE LA PAZ, Iza BANSAL, Christel Booth Role Performed PROMOTIONS MANAGER Fitness Professional - Primary Scrub - Primary Time In 01/02/23 12:23:00 01/02/23 12:23:00 01/02/23 12:23:00 Time Out 01/02/23 12:49:00 01/02/23 12:49:00 01/02/23 12:49:00 Procedure EGD AND COLONOSCOPY(.) EGD AND COLONOSCOPY(.) EGD AND COLONOSCOPY(.) Comments Dr. Ramey supervising procedure. Last Modified By: Ca Antoine CST, RN, Briseida Agustin RN 01/03/23 09:18:58 01/02/23 12:50:05 01/02/23 12:50:05 Entry 4 Case Attendee Sylvester FITZPATRICK MD Role Performed Surgeon - Primary Time In 01/02/23 12:23:00 Time Out 01/02/23 12:49:00 Procedure EGD AND COLONOSCOPY(.) Comments Last Modified By: Briseida Couch RN 01/02/23 12:50:05 Perioperative Protocols FT Pre-Care Text: Implements protective measures prior to operative or invasive procedure, confirms identity before the operative or invasive procedure, verifies operative procedure, surgical site, and laterality Entry 1 Procedure(s) EGD AND COLONOSCOPY(.) Patient Identity Birthday, ID Band Verified (select at Check, Patient least 2): Participation Consents / H and P Anesthesia Consent, Operative Site N/A Verified HandP, Surgery/Procedure Marking Verified Consent Surgical Site No Laterality Verified n/a Verified Procedure Verified Yes Correct Patient Yes Position Verified Availability Equipment, Medication Prep Dry n/a Verified (If Applicable) PreOp Antibiotic No Time Out Marilyn DE LA PAZ, Given Participants Dinora Riley, Iza BANSAL, DEMETRIA Reyez MD, Maher, Miles, Kirstyn K Time Out Complete 01/02/23 12:25:00 Outcomes Met? Yes Last Modified By: Briseida Couch RN 01/02/23 12:26:04 Post-Care Text: The patient is free from signs and symptoms of injury caused by extraneous objects Allergy Information FT Pre-Care Text: Verifies allergies Entry 1 Allergies Reviewed? Yes Allergies Reviewed Self/Patient With Outcomes Met? Yes Last Modified By: Briseida Cuoch RN 01/02/23 09:48:08 Post-Care Text: The patient received appropriate medication(s) safely administered during the perioperative period Surgical Procedures FT Entry 1 Procedure Description Procedure EGD AND COLONOSCOPY Modifiers . Surgeon Description EGD with gastric biopsy and esophageal dilation using #56fr engle dilator. Colonoscopy wiht random colon biopsy, ascending colon polypectomy. Primary Procedure Yes Primary Surgeon Sylvester FITZPATRICK MD Start 01/02/23 12:30:00 Stop 01/02/23 12:47:00 Anesthesia Type MAC Surgical Service Gastroenterology Wound Class 2 - Clean-Contaminated Last Modified By: Ca Antoine CST 01/03/23 09:19:49 General Case Data FT Pre-Care Text: Classifies surgical wound, implements aseptic technique, initiates traffic control Entry 1 Case Information OR ENDO 1 FT Case Level Level 2 Wound Class 2 - Clean-Contaminated Specialty Gastroenterology ASA Class 3 Preop Diagnosis Abd cramping, Postop Same As Preop No dysphagia, heartburn, hx colon polyps Postop Diagnosis EGD- proximal Outcomes Met? Yes esophageal ring. Colonoscopy- ascending colon polyp, diverticulosis and internal hemorrhoids. Last Modified By: Briseida Couch RN 01/02/23 12:48:08 Post-Care Text: The patient is free from signs and symptoms of infection Skin Assessment (Pre Procedure) FT Pre-Care Text: Implements protective measures to prevent skin/ tissue injury due to thermal or mechanical sources Evaluates for signs and symptoms of physical injury to skin and tissue Entry 1 Skin Integrity Intact, [place], Warm, and Skin Abnormality No Dry Outcomes Met? Yes Last Modified By: Briseida Couch RN 01/02/23 09:50:51 Post-Care Text: The patient is free from signs and symptoms of injury caused by extraneous objects Patient Positioning FT Pre-Care Text: Identifies physical alterations that require additional precautions for procedure-specific positioning, verifies presence of prosthetics or corrective devices, positions the patient, evaluates the patient f (more content not included)... Normal [facility] Consent for Treatmenton Consent for Treatment [id number] #1.00CD:127 [facility] Consultation Noteon 01-02-20 Endoscopic Procedure Report - Other Patient: HARI THORNTON Age: 47 years Sex: Male : 1975 Associated Diagnoses: None Author: Sylvester FITZPATRICK MD Pre-Procedure Procedure Date 01/02/2023 12:33:00 . Procedure Type: Esophagogastroduoden oscopy. Procedure provider Performed by Sylvester Fitzpatrick MD. Current history and physical Documented on chart. Informed Consent After discussing the rationale, risks and benefits, and alternatives to this procedure, the patient provided signed consent for the procedure. Pre-procedure diagnosis: Dysphagia/ odynophagia. Medications Anticoagulant/antipl atelet None. Antibiotic prophylaxis None. ASA Classification: Class II. . Monitoring: See anesthesia record. . Procedure The procedure was performed in the hospital. See anesthesia record for sedation given during procedure. The patient was positioned starting in the left lateral decubitus position and with safety measures. Endoscope type used was an adult-size, introduced orally, advanced to the 2nd portion of the duodenum. No difficulty was encountered during the procedure. Views were excellent. The patient tolerated the procedure well. Findings 1. Proximal esophageal ring, dilated using 56 Polish Engle dilator 2. Normal gastric mucosa, biopsied to rule out H. pylori 3. Normal duodenal mucosa Images Procedure images: [email or web address]_hd_video_2022_0 2_T1_[id number].truman g Rec1_hd_video_2022_0 2__33_[id number].truman g Rec1_hd_video_2022_0 2_T1__53_[id number].truman g . Post-Procedure Complications: none. Estimated blood loss: none. Specimens: sent to pathology. Devices/ implants: none left in place. Impression and Plan 1. Proximal esophageal ring, dilated using 56 Polish Engle dilator 2. Normal gastric mucosa, biopsied to rule out H. pylori Recommendations: Follow-up in GI clinic in 2 weeks .. [facility] Comment on above: Result Comment: Elec tronically Signed By: Sylvester FITZPATRICK MD\.br\Date and Time Signed: 01/02/23 12:52 EST Other Comment: Coleen muller Attachment - attachment storage system not supported [id number] Can be viewed in source systemMissing Attachment - attachment storage system not supported [id number] Can be viewed in source systemMissing Attachment - attachment storage system not supported [id number] Can be viewed in source system Consultation Note Patient: HARI THORNTON Age: 47 years Sex: Male : 1975 Associated Diagnoses: None Author: Sylvester FITZPATRICK MD Pre-Procedure Procedure Date 01/02/2023 12:33:00 . Procedure Type: Esophagogastroduoden oscopy. Procedure provider Performed by Sylvester Fitzpatrick MD. Current history and physical Documented on chart. Informed Consent After discussing the rationale, risks and benefits, and alternatives to this procedure, the patient provided signed consent for the procedure. Pre-procedure diagnosis: Dysphagia/ odynophagia. Medications Anticoagulant/antipl atelet None. Antibiotic prophylaxis None. ASA Classification: Class II. . Monitoring: See anesthesia record. . Procedure The procedure was performed in the hospital. See anesthesia record for sedation given during procedure. The patient was positioned starting in the left lateral decubitus position and with safety measures. Endoscope type used was an adult-size, introduced orally, advanced to the 2nd portion of the duodenum. No difficulty was encountered during the procedure. Views were excellent. The patient tolerated the procedure well. Findings 1. Proximal esophageal ring, dilated using 56 Polish Engle dilator 2. Normal gastric mucosa, biopsied to rule out H. pylori 3. Normal duodenal mucosa Images Procedure images: Rec1_hd_video_2022_0 2_T1_34_[id number].truman g Rec1_hd_video_2022_0 2__33_[id number].truman g Rec_hd_video_2022_0 2__33_[id number].truman g . Post-Procedure Complications: none. Estimated blood loss: none. Specimens: sent to pathology. Devices/ implants: none left in place. Impression and Plan 1. Proximal esophageal ring, dilated using 56 Polish Engle dilator 2. Normal gastric mucosa, biopsied to rule out H. pylori Recommendations: Follow-up in GI clinic in 2 weeks [facility] Comment on above: Result Comment: Elec tronically Signed By: Sylvester FITZPATRICK MD\.br\Date and Time Signed: 01/02/23 12:34 EST Other Comment: Colene muller Attachment - attachment storage system not supported [id number] Can be viewed in source systemMissing Attachment - attachment storage system not supported [id number] Can be viewed in source systemMissing Attachment - attachment storage system not supported [id number] Can be viewed in source system Endoscopic Procedure Report - Otheron 01-02-2023 Endoscopic Procedure Report - Other Patient: HARI THORNTON Age: 47 years Sex: Male : 1975 Associated Diagnoses: None Author: Sylvester FITZPATRICK MD Pre-Procedure Procedure Date 01/02/2023 12:52:00 . Procedure Type: Colonoscopy with biopsy. Procedure provider Performed by Sylvester Fitzpatrick MD. Current history and physical Documented on chart. Colorectal neoplasm risk assessment Average risk. Informed Consent After discussing the rationale, risks and benefits, and alternatives to this procedure, the patient provided signed consent for the procedure. Pre-procedure diagnosis: Diarrhea, clinically significant. Medications Anticoagulant/antipl atelet None. Antibiotic prophylaxis Not indicated. ASA Classification: Class II. . Procedure The procedure was performed in the hospital. Rectal exam was performed and was normal with no masses palpated. The patient was positioned in the left lateral decubitus position and a digital rectal exam was performed.. Endoscope type used was an adult-size. The endoscope was lubricated then introduced through the anus. The terminal ileum was photographed The ileocecal valve was photographed The appendiceal orifice was photographed The time to the cecum was 4 minutes The withdrawal time was 8 minutes No difficulties encountered during the procedure. The bowel preparation quality was adequate (see polyps greater than or equal to 6 millimeters). The patient tolerated the procedure well. Findings 1. Normal terminal ileum, photograph taken 2. Normal colonic mucosa, random biopsies obtained from ascending colon and rectum to rule out microscopic colitis 3. Sessile polyp, 5 mm in the ascending, removed completely with cold snare 4. Severe diverticulosis in the sigmoid and descending colon 5. Moderate nonbleeding internal hemorrhoids Images Procedure images: [id number] g [id number] g [id number] g . Post-Procedure Complications: none. Estimated blood loss: none. Specimens: sent to pathology. Devices/ implants: none left in place. Impression and Plan Impression: 1. Normal terminal ileum, photograph taken 2. Normal colonic mucosa, random biopsies obtained from ascending colon and rectum to rule out microscopic colitis 3. Sessile polyp, 5 mm in the ascending, removed completely with cold snare 4. Severe diverticulosis in the sigmoid and descending colon 5. Moderate nonbleeding internal hemorrhoids Recommendations: Repeat colonoscopy:: In 5 years, Pending pathology results. Follow-up:: Clinic follow-up in 1-2 weeks. Diet:: Resume previous diet. Medication resumption:: Continue current medications. Return to activities:: After 24 hours. Normal [facility] Comment on above: Result Comment: Elec tronically Signed By: DEMETRIA ANN, Sylvester\.br\Date and Time Signed: 01/02/23 12:53 EST Other Comment: Coleen muller Attachment - attachment storage system not supported [id number] Can be viewed in source systemMissing Attachment - attachment storage system not supported [id number] Can be viewed in source systemMissing Attachment - attachment storage system not supported [id number] Can be viewed in source systemMissing Attachment - attachment storage system not supported [id number] Can be viewed in source system Inpatient Patient Summaryon 01-02-2023 Inpatient Patient Summary [place] [id number] [facility] Clinical Discharge Instructions PERSON INFORMATION Name: HARI THORNTON [facility]#:[id number] PHYSICIANS Admitting Physician: Sylvester FITZPATRICK MD Attending Physician: Sylvester FITZPATRICK MD PCP: NARAYAN GAGNON DO Discharge Diagnosis: Diarrhea Comment: PATIENT EDUCATION INFORMATION Instructions: Endoscopy, Care After Procedure [facility] (CUSTOM); Esophageal Dilatation; Colonoscopy, Care After Surgery [facility] (CUSTOM); Diverticulitis, Giwy-fc-Whea; Colon Polyps; Hemorrhoids, Cmxk-mg-Hxxe Medication Leaflets: Follow up: With: Address: When: Sylvester FITZPATRICK [address] [place] [address]. [address] [place], [place] [id number] [employer] (1) Comments: Call for any problems. Office will call for follow up appt MEDICATION LIST Medications to Continue with No Changes Other Medications acetaminophen-oxycod one (Percocet 325 mg-5 mg Tab) 2 Tablets By Mouth every 4 hours as needed Pain 4-7. acetaminophen-oxycod one (Percocet 325 mg-5 mg Tab) 1 Tablets By Mouth every 4 hours as needed Pain 4-7. aspirin (aspirin 81 mg Chew Tab) 1 Tablets Chewed every day. clonazepam 1 Milligram By Mouth 2 times a day. divalproex sodium (divalproex sodium 500 mg ER Tab) 1 Tablets By Mouth 2 times a day. docusate (Colace 100 mg Cap) 1 Capsules By Mouth 2 times a day as needed for constipation. dulaglutide (Trulicity Pen 3 mg/0.5 mL subcutaneous solution) 3 Milligram Subcutaneous every week. glimepiride (glimepiride 2 mg Tab) 1 Tablets By Mouth every day. iloperidone (Fanapt) lisinopril (lisinopril 20 mg Tab) 1 Tablets By Mouth every day. metformin (metformin 500 mg oral tablet) 1 Tablets By Mouth 2 times a day. omeprazole (omeprazole 40 mg Cap-DR) 1 Capsules By Mouth every day for 90 Days. Refills: 0. polycarbophil (Fiber Lax 625 mg oral tablet) 1 Tablets By Mouth every other day. pravastatin (pravastatin 20 mg Tab) 1 Tablets By Mouth once a day (at bedtime). primidone (primidone 50 mg Tab) 0.5 Tablets By Mouth once a day (at bedtime). tizanidine (tizanidine 4 mg oral capsule) 1 Capsules By Mouth at bedtime. tramadol (tramadol 50 mg oral tablet) 1 Tablets By Mouth 2 times a day as needed for pain. trazodone (traZODONE 100 mg Tab) 1 Tablets By Mouth once a day (at bedtime). verapamil (verapamil 180 mg Cap-ER) 1 Capsules By Mouth every day., high heart rate Comment: Normal [facility] Main OR PACU I [facility]ordon Main OR PACU I Record PACU Phase I Document Type FT Summary Primary Physician: Sylvester FITZPATRICK MD Finalized Date/Time: 01/02/23 13:17:59 Pt. Name: HARI THORNTON/Sex: 1975 Male Med Rec #: [id number] Physician: Sylvester FITZPATRICK MD Financial #: [id number] Pt. Type: O Room/Bed: / Admit/Disch: 01/02/23 11:32:43 - Institution: Case Times PACU I FT Pre-Care Text: Identifies barriers to communication and implements measures to provide psychological support Develops individualized plan of care, and ensures continuity of care Maintains patient's dignity and privacy, and maintains patient confidentiality Identifies and reports philosophical, cultural, and spiritual beliefs and values Identifies individual values and wishes concerning care Implements aseptic technique, and administers prescribed antibiotic therapy and immunizing agents as ordered Evaluates postoperative tissue perfusion Implements thermoregulation measures, and monitors body temperature Evaluates postoperative respiratory status Evaluates postoperative cardiac status Evaluates postoperative neurological status Assesses pain control, collaborated in initiating patient-controlled analgesia and implements alternative methods of pain control Verifies allergies, administers prescribed medications and solutions, evaluates response to medications Entry 1 In PACU I 01/02/23 12:50:00 Discharge from PACU 01/02/23 13:20:00 I Outcomes Met? Yes Last Modified By: Jayson BANSAL, Shira Elizondo 01/02/23 13:17:43 Post-Care Text: The patient demonstrates knowledge of the expected response to the operative or invasive procedure The patient's care is consistent with the individualized perioperative plan of care The patient's right to privacy is maintained The patient's value system, lifestyle, ethnicity, and culture are considered, respected, and incorporated into the perioperative plan of care The patient participates in decisions affecting his or her perioperative plan of care The patient is free from signs and symptoms of infection The patient has wound/tissue perfusion consistent with or improved from baseline levels established preoperatively The patient is at or returning to normothermia at the conclusion of the immediate postoperative period The patient's respiratory function is consistent with or improved from baseline levels established preoperatively The patient's cardiovascular status is consistent with or improved from baseline levels established preoperatively The patient's cardiovascular status is consistent with or improved from baseline levels established preoperatively The patient demonstrates and/or reports adequate pain control throughout the perioperative period The patient received appropriate medication(s), safely administered during the perioperative period Acuity Level PACU I FT Entry 1 Start Time 01/02/23 12:50:00 Stop Time 01/02/23 13:20:00 Acuity Level Acuity Level I Last Modified By: Shira Tyler RN 01/02/23 13:17:54 Finalized By: Shira Tyler RN Document Signatures Signed By: Shira Tyler RN 01/02/23 13:17 Normal [facility] Main OR Preoperative Recordo n 01-02-2023 Main OR Preoperative Record Holding Area Document Type FT Summary Primary Physician: Sylvester FITZPATRICK MD Finalized Date/Time: 01/02/23 11:55:04 Pt. Name: HARI THORNTON/Sex: 1975 Male Med Rec #: [id number] Physician: Sylvester FITZPATRICK MD Financial #: [id number] Pt. Type: O Room/Bed: / Admit/Disch: 01/02/23 11:32:43 - Institution: Case Times Holding FT Pre-Care Text: Verifies consent for planned procedure, identifies individual values and wishes concerning care, includes family members in perioperative teaching Secures patient's records' belongings, and valuables, maintains patient's dignity and privacy, and maintains patient confidentiality Entry 1 In Holding 01/02/23 11:42:00 Outcomes Met? Yes Last Modified By: Stacia Camara RN 01/02/23 11:45:03 Post-Care Text: The patient participates in decisions affecting his or her perioperative plan of care The patient's right to privacy is maintained Surgery Checklist FT Entry 1 Patient Birthday, ID Band Procedure History and Physical, Identification: Check, Patient Verification: Surgical Consent, With Participation Patient NPO after Midnight: No Date/Time: 01/02/23 11:45:00 Personal Items: Glasses Personal Items clothes Comment: Limitations: no Complaints of Pain: No Pain Comment: no Operative Site Yes Marking: Marked By: n/a Availability Equipment Verified: Does Patient Smoke No Patient states Yes Comment - Adult Vy-mom postop adult Supervision supervision available Case Cancelled in No Holding Area see comments below for reason Last Modified By: Stacia Camara RN 01/02/23 11:52:50 General Comments: 100% prep in patient tolerated well, last bowel movement clear yellow./BARBIRN Finalized By: Stacia Camara RN Document Signatures Signed By: Stacia Camara RN 01/02/23 11:52 Stacia Camara RN 01/02/23 11:55 Normal [facility] Monitor [facility] 01-02-2023 Monitor Record [id number]#[id number]:127 Normal [facility] Monitor Record [id number]#1.00CD:127 [facility] Monitor Record [id number]#[id number]:127 [facility] Outpatient Surgery Discharge Instructionon 01-02-2023 Outpatient Surgery Discharge Instruction [place] [id number] Patient Discharge Instructions PERSON INFORMATION Name: HARI THORNTON Date of : 1975 Current Date: 01/02/2023 12:59:38 PHYSICIANS Admitting Physician: Sylvester FITZPATRICK MD Discharge Diagnosis: Diarrhea HARI THORNTON has been given the following list of follow-up instructions, prescriptions, and patient education materials: PATIENT FOLLOW-UP INFORMATION Diet: Regular Discharge Activity: Resume normal activities in 24 hours Discharge Restrictions: No driving for 24 hrs, Do not operate machinery or tools, Do not make important decisions for 24 hours IF UNABLE TO CONTACT YOUR PHYSICIAN AND YOU FEEL IT IS AN EMERGENCY, GO TO THE NEAREST EMERGENCY ROOM OR CALL 911 IHILLARY WILLIAM A, have received the attached patient education materials/instructio ns and have verbalized understanding: May we do a follow up call? Yes No I was present when discharge instructions were given Patient Signature Date Clinican/Nurse Signature Date Follow up: With: Address: When: Sylvester FITZPATRICK [address] [place] [address]. [address] [place], [place] [id number] [facility] (1) Comments: Call for any problems. Office will call for follow up appt Pharmacy Information: Other: [facility] You may receive a survey from [employer] asking you to rate your care experience. Your feedback is important and will help us understand what we do well and how we can improve the quality of care we provide to you, your loved ones and our community. It?s an honor to serve you. Thank you for choosing [facility] HERE ARE THE MEDICATION CHANGES THAT OCCURRED DURING YOUR HOSPITAL STAY Medications to Continue with No Changes Other Medications acetaminophen-oxycod one (Percocet 325 mg-5 mg Tab) 2 Tablets By Mouth every 4 hours as needed Pain 4-7. acetaminophen-oxycod one (Percocet 325 mg-5 mg Tab) 1 Tablets By Mouth every 4 hours as needed Pain 4-7. aspirin (aspirin 81 mg Chew Tab) 1 Tablets Chewed every day. clonazepam 1 Milligram By Mouth 2 times a day. divalproex sodium (divalproex sodium 500 mg ER Tab) 1 Tablets By Mouth 2 times a day. docusate (Colace 100 mg Cap) 1 Capsules By Mouth 2 times a day as needed for constipation. dulaglutide (Trulicity Pen 3 mg/0.5 mL subcutaneous solution) 3 Milligram Subcutaneous every week. glimepiride (glimepiride 2 mg Tab) 1 Tablets By Mouth every day. iloperidone (Fanapt) lisinopril (lisinopril 20 mg Tab) 1 Tablets By Mouth every day. metformin (metformin 500 mg oral tablet) 1 Tablets By Mouth 2 times a day. omeprazole (omeprazole 40 mg Cap-DR) 1 Capsules By Mouth every day for 90 Days. Refills: 0. polycarbophil (Fiber Lax 625 mg oral tablet) 1 Tablets By Mouth every other day. pravastatin (pravastatin 20 mg Tab) 1 Tablets By Mouth once a day (at bedtime). primidone (primidone 50 mg Tab) 0.5 Tablets By Mouth once a day (at bedtime). tizanidine (tizanidine 4 mg oral capsule) 1 Capsules By Mouth at bedtime. tramadol (tramadol 50 mg oral tablet) 1 Tablets By Mouth 2 times a day as needed for pain. trazodone (traZODONE 100 mg Tab) 1 Tablets By Mouth once a day (at bedtime). verapamil (verapamil 180 mg Cap-ER) 1 Capsules By Mouth every day., high heart rate PATIENT EDUCATION INFORMATION Instructions: Endoscopy Care After Procedure Please read the instructions outlined below and refer to this sheet in the next few weeks. These discharge instructions provide you with general information on caring for yourself after you leave the hospital. Your doctor may also give you specific instructions. While your treatment has been planned according to the most current medical practices available, unavoidable complications occasionally occur. If you have any problems or questions after discharge, please call your doctor. ACTIVITY ? You may resume your regular activity but move at a slower pace for the next 24 hours. ? Take frequent rest periods for the next 24 hours. ? Walking will help expel (get rid of) the air and reduce the bloated feeling in your abdomen. ? No driving for 24 hours (because of the anesthesia (medicine) used during the test). ? You may shower. ? Do not sign any important legal documents or operate any machinery for 24 hours (because of the anesthesia used during the test). NUTRITION ? Drink plenty of fluids. ? You may resume your normal diet. ? Begin with a light meal and progress to your normal diet. ? Avoid alcoholic beverages for 24 hours or as instructed by your caregiver. MEDICATIONS ? You may resume your normal medications unless your c (more content not included)... Normal [facility] Progress Note-Physicianon Progress Note-Physician Patient: HARI THORNTON Age: 47 years Sex: Male : 1975 Associated Diagnoses: None Author: Keyon Ramey MD Postoperative Information Postoperative disposition: Postoperative disposition: To PACU. Optimetrix number: Optimetrix number [id number]. Anesthetic utilized: Monitored anesthesia care. 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 Depression / SNOMED CT 81813188 / Confirmed Diabetes mellitus / SNOMED CT 521535228 / Confirmed Dysphagia / SNOMED CT 01434121 / Confirmed Dysuria / SNOMED CT 19598650 / Confirmed Hearing loss / SNOMED CT 88095879 / Confirmed Heart murmur / SNOMED CT 103250558 / Confirmed Heartburn / SNOMED CT 16404360 / Confirmed History of colon polyps / SNOMED CT 7678588878 / Confirmed Hydrocele / SNOMED CT 3134835503 / Confirmed Hyperlipidemia / SNOMED CT 63505195 / Confirmed Hypertension / SNOMED CT 0532078852 / Confirmed Irregular bowel habits / SNOMED CT 4801082053 / Confirmed Neoplasm of lung / SNOMED CT 659404070 / Confirmed Nocturia / SNOMED CT 753178678 / Confirmed Obstructive atelectasis / SNOMED CT 65266042 / Confirmed Post-void dribbling / SNOMED CT 886313425 / Confirmed Proteinuria / SNOMED CT 36659861 / Confirmed Psychiatric illness / SNOMED CT 995679883 / Confirmed Schizophrenia / SNOMED CT 92260537 / Confirmed Testicular swelling / SNOMED CT 5494532469 / Confirmed Type 2 diabetes mellitus / SNOMED CT 520719469 / Confirmed Urge incontinence / SNOMED CT 050296831 / Confirmed Urinary frequency / SNOMED CT 703384239 / Confirmed Urinary reflux / SNOMED CT 4286111887 / Confirmed 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 General: Awake, Alert, Appropriate. Respiratory: Adequate air exchange. Cardiovascular: Stable. Neurological: Normal sensory function, Normal motor function. Assessment Anesthetic outcome No anesthetic complications noted. Review / Management Condition: Stable. Plan Transfer/Discharge: Transfer/Discharge Discharge when meets criteria ( To home ). Normal [facility] Comment on above: Result Comment: Elec tronically Signed By: Keyon Ramey MD\.br\Date and Time Signed: 01/02/23 12:57 EST Progress Note-Physician Patient: HARI THORNTON Age: 47 years Sex: Male : 1975 Associated Diagnoses: None Author: Keyon Ramey MD Preoperative Information Anesthesia history: Patient history: None. Family history+: None. Anesthesia results: Anesthesia results from flowsheet : Results 11/01/2022 13:40 EST WBC 4.1 E9/L RBC 4.6 E12/L HGB 14.4 gm/dL Hct 41.4 % MCV 89.9 fL MCH 31.2 pg MCHC 34.8 gm/dL RDW 14.3 % HI Platelet 221.0 E9/L MPV 7.0 fL Neutro Auto 47.3 % Lymph Auto 35.8 % [place] Auto 15.7 % HI Eos Auto 0.4 % Basophil Auto 0.8 % Neutro Absolute 1.9 E9/L LOW Lymph Absolute 1.5 E9/L [place] Absolute 0.6 E9/L Eos Absolute 0.0 E9/L Basophil Absolute 0.0 E9/L Glucose Lvl 219 mg/dL HI BUN 26 mg/dL HI Creatinine 0.7 mg/dL eGFR >60 mL/min/1.73 m2 eGFR AA >60 mL/min/1.73 m2 BUN/Creat Ratio 37 HI Sodium Lvl 136 mmol/L Potassium Lvl 4.3 mmol/L Chloride 108 mmol/L CO2 22 mmol/L AGAP 10 mEq/L Calcium Lvl 9.4 mg/dL . Re-evaluation prior to induction: Keyon Ramey MD. Initial evaluation reviewed: No significant change. Review of Systems Eye: Negative. Ear/Nose/Mouth/Throa t: Negative. Respiratory: Negative. Cardiovascular: Negative. Gastrointestinal: Negative except as documented in history of present illness. Genitourinary: Negative. Hematology/Lymphatic s: Negative. Endocrine: Negative. Musculoskeletal: Negative. Neurologic: Negative. Health Status Allergies: Allergic Reactions (Selected) Severity Not Documented Morphine- Vomiting and trouble breathing. Penicillin- Hives. Vancomycin- Trouble breathing., Allergies (3) Active Reaction morphine Vomiting penicillin Hives vancomycin Trouble breathing Current medications: (Selected) Inpatient Medications Ordered Lactated Ringers IV Ting 1000 mL 1,000 mL: 1,000 mL, IV, 100 mL/hr, Routine, Start date 01/02/23 11:34:00 EST, 10 hour(s), Total volume (mL): 1,000 Sodium Chloride 0.9% IV Ting 1000 mL 1,000 mL: 1,000 mL, IV, 20 mL/hr, Routine, Start date 01/02/23 7:39:00 EST, 50 hour(s), Total volume (mL): 1,000 Prescriptions Prescribed NuLYTELY Zimmer oral powder for reconstitution: See Instructions, 1 EA, Refill(s) 0, Prior to colonoscopy., [facility], 171, cm, 11/01/22 12:17:00 EST, Height/Length Dosing, 78.9, kg, 11/01/22 12:17:00 EST, Weight Dosing omeprazole 40 mg Cap-DR: 40 mg = 1 cap(s), Oral, Daily, X 90 day(s), # 90 cap(s), Refills(s) 0, Pharmacy: [facility], 171, cm, 11/01/22 12:17:00 EST, Height/Length Dosing, 78.9, kg, 11/01/22 12:17:00 EST, Weight Dosing Documented Medications Documented Colace 100 mg Cap: 100 mg = 1 cap(s), Oral, BID, PRN for constipation, # 20 cap(s), Refills(s) 0 Fanapt: Refills(s) 0 Fiber Lax 625 mg oral tablet: 625 mg = 1 tab(s), Oral, Every other day, Refills(s) 0, Constipation Percocet 325 mg-5 mg Tab: 1 tab(s), Oral, q4hr Pain 4-7, Refill(s) 0 Percocet 325 mg-5 mg Tab: 2 tab(s), Oral, q4hr Pain 4-7, Refill(s) 0 Trulicity Pen 3 mg/0.5 mL subcutaneous solution: 3 mg, SubCutaneous, qWeek, Blood glucose aspirin 81 mg Chew Tab: 81 mg = 1 tab(s), Chewed, Daily, Refills(s) 0 clonazepam: 1 mg, Oral, BID, Psychosis divalproex sodium 500 mg ER Tab: 500 mg = 1 tab(s), Oral, BID, Refills(s) 0, Psychosis glimepiride 2 mg Tab: 2 mg = 1 tab(s), Oral, Daily, Refills(s) 0, Blood glucose lisinopril 20 mg Tab: 20 mg = 1 tab(s), Oral, Daily, High blood pressure metformin 500 mg oral tablet: 500 mg = 1 tab(s), Oral, BID, Blood glucose pravastatin 20 mg Tab: 20 mg = 1 tab(s), Oral, Once a day (at bedtime), Refills(s) 0, High cholesterol primidone 50 mg Tab: 25 mg = 0.5 tab(s), Oral, Once a day (at bedtime), Psychosis tizanidine 4 mg oral capsule: 4 mg = 1 cap(s), Oral, Bedtime, Refills(s) 0, Muscle pain traZODONE 100 mg Tab: 100 mg = 1 tab(s), Oral, Once a day (at bedtime), Sleep tramadol 50 mg oral tablet: 50 mg = 1 tab(s), Oral, BID, PRN for pain, Refills(s) 0 verapamil 180 mg Cap-ER: 180 mg = 1 cap(s), Oral, Daily, Refills(s) 0, Other (see comment), Home Medications (20) Active aspirin 81 mg Chew Tab 81 mg = 1 tab(s), Chewed, Daily clonazepam 1 mg, Oral, BID Colace 100 mg Cap 100 mg = 1 cap(s), PRN, Oral, BID divalproex sodium 500 mg ER Tab 500 mg = 1 tab(s), Oral, BID Fanapt Fiber Lax 625 mg oral tablet 625 mg = 1 tab(s), Oral, Every other day glimepiride 2 mg Tab 2 mg = 1 tab(s), Oral, Daily lisinopril 20 mg Tab 20 mg = 1 tab(s), Oral, Daily metformin 500 mg oral tablet 500 mg = 1 tab(s), Oral, BID NuLYTELY Zimmer oral powder for reconstitution See Instructions omeprazole 40 mg Cap-DR 40 mg = 1 cap(s), Oral, Daily Percocet 325 mg-5 mg Tab 1 tab(s), PRN, Oral, q4hr Percocet 325 mg-5 mg Tab 2 tab(s), PRN, Oral, q4hr pravastatin 20 mg Tab 20 mg = 1 tab(s), Oral, Once a day (at bedtime) primidone 50 mg Tab 25 mg = 0.5 tab(s), Oral, Once a day (at bedtime) tizanidine 4 mg oral capsule 4 mg = 1 cap(s), Ora (more content not included)... Normal [facility] Comment on above: Result Comment: Elec tronically Signed By: Tanvir ANN, Keyon Andres\.br\Date and Time Signed: 01/02/23 11:40 EST Giardia, Direct, EIAon 12-28 G. lamblia Ag IA Ql (Stl) Negative Invalid Interpretation Code Negative [facility] Comment on above: Result Comment: Perf ormed at: [facility] [address] [id number] PhD Paul Mejia Performed By: #### 1 [id number], [id number] ####[facility] [id number] [place] [address] O & P EXAM, ROUTINE, REFLEXo n 12-28-2022 Ova and parasites identified Concentration Nom (Stl) Comment Invalid Interpretation Code [facility] Comment on above: Result Comment: No o va, cysts, or parasites seen. One negative specimen does not rule out the possibility of a parasitic infection. Performed at: [address] [id number] PhD Paul Mejia Performed By: #### 1 [id number] ####[place] [address] [place] [address] O & P Exam, Routineon 2022 Ova and parasites identified LM Nom (Unsp spec) Final report Invalid Interpretation Code [facility] Comment on above: Result Comment: Thes e results were obtained using wet preparation(s) and trichrome stained smear. This test does not include testing for Cryptosporidium parvum, Cyclospora, or Microsporidia. Performed at: [address] [id number] PhD Paul Mejia Performed By: #### 1 [id number] ####[place] [address] [place] [address] Coding Summary.on 12-26-2022 Coding Summary. [id number] Gh0bWw+PGhlYWQ+PE1FV AZjI52wgJCusZ1PK3wHH M4QGWUOVUJUUU3ADU9xo OW4ZBunA7JdpbQl WgzbuRXcGS02GWt0GRU9 xGitKRwikL4ibTZfB4e7 IoEcLW11nS21MKcoUDWc ZdP8CeSepdvbgMYj P9bqYeNbuCLsYco+PHRh YmxlIHdpZHRoPScxMDAl FzLniIbiVL5jSc8vZAGq LWNvbGxhcHNlOiBj a0eqGQHmSMzeRB8pfGtt L7PvwJT7RSFdb1t7Pk62 dHI+ZQQpEFT7fNoaBCwq j322EpCcs3jnWCC5 bQOqUPaqKTX7Y27uk6E2 GKPgDYEoGZR8tTO2kT1d mTlazdeaK7PssZDcUlS7 VQD2aRUavU8koEfd lkmpaQ8qAxq+G84OKV6Z WMRZTH0ZCbb6M9YmZeak dHI+BU33NFJdPA77mHRg hBGhi5jllAi6FpFd IKGcLDN9xVzlBXptn2Ag TNGzT55dcFIcr7L1FHGt bHkhoXKsJuAegWC8iS8g RDhgdcbyx1uueuli Iilml7tzys64yN46P32c DDsfDPIwVZP6AQXjPLOc uEiqbn6dbH2rCo5+IDxj b6ufs5jhfZs9DlNm NXCmirTquVepLQC0g7Uv Dq74S4YbxQkot0JgKup6 jw99dHDhm3B1iYE0OFhm ZVBgzB0vSXmiDiF7 PJExUaGvnJ85hMBjBOmw Gi3cnNeepAyaUJ6pXQXf lvsvPXBidI1kTWGrsFMl gErwDJ8oJPDdxiqn u507HtXvVNL8WFTqcIXo A4TfbR3dTcFaWXLlLHTp N3BvqEDvMOhtI328FBrk NlQ5JAPdxlIrH8Wp SEAiyHtfSqU8g1L5Bj5Q l3UxqkecCJY5RZwtGCIj HxMtRdUjLnU7I8XlKlc4 XWIwkXzsLM9yO3Cx CTMsxnaiitktpDW8UYDe AUTxxG64uNPvDRznKk0r u3W1p539LAKyEYHzbW88 Gd3xcTntNTYziLRY kL8fqmmni3uwdgwkXbJi OCEaONd3JDh4HERntFxu ZhDhXJO9PbE2YQU8wOWq mM2wlEomqpnyjG3m Oyc+T11hyX7cYSB6GBF6 ivkgUVCvvaAeJT32JF70 C6NvIgojxBNjiRF+PGRp laKqzNlxCM2uYrBz i3ywe6JxALvtL3ZuHKBc KFwcWeq6RCNgGUO4eBV1 xH7sREVhCPdqn5J7qKN3 G6VfqmRqfr2bg6jl TSPlDMmzS31aeYUbp1Z0 WUPcwTQ6SDOonPyzPxJh bX76Mjy+RCIqkTuex9Xs Mwxje2wnn7vdbNr6 IjMwJSIgdmFsaWduPSJ0 o9CdGq24U37kFZtyKOTc JZLaSSBmWSPayNdmno6l uG5gWa3+PGNvbCB3 cBU8jE0vPQDqOkB4EIpq E666YmMcjPVuBunsr1ra c3risZv0ZuPySHLnhcDa cKurNBX1x6HhJm67 N82vZFdnQEPvYVGvDUSz XRDdeHobhk9qvJ1xOj8+ SH1um7bgxv94yF76nDU+ NZQfZGE3fUjkYTll VJKerD4qTIndYwP2TEIr OuKihK99mDZxXIsxRe9k fWsfwXnxVB4eNWKqcxnr p994ExCwi0kvYZKh uWJuGChjYLW6M33lj3H7 WKZaLAYuMYY6jNY2qF2u bGlnbjogbGVmdDsgdmVy nAykDYipKHfwY068 IHRvcDsnPlBhdGllbnQg LkAlCMo2R4QjVyr0GFFh fXxcPX0qsGJpBWsfCq1w oOrmbMtdQT7tQYTj itdje880PiEpu9mySCQx qNUhJYdeBRJ5S79jl8S8 SOGlMKTlWNX7bGJ3rZ2r bGlnbjogbGVmdDsg deSzwTxvKRqjLLceT006 IHRvcDsnPkJpcnRoIERh hNG6NV62OK81lLWed7O0 sIK1I8TjEUSbvrtk onmdeOT4LWDnUMDoiT70 Df5kdSaiLs6wWPVlGTF4 NQIatFBnM6RymO0hBmPi VFGnUPAiK5UecMSl JUqzA116FXzaHkM2QCDa vdVeW1NgHFWjiUutDaF8 t8B5Yi0EJ2C9AJ60VO42 zJZso7X1qZT4O6Tl NAYoneyhnixetEN6IWJk RPUovD87Oa7xkPptPh0w FCPqZTF5RENnjQSbX5Dm sP2lIzVlSWPnDPCa X9QwgZIoIYpqE174LQpj RaJ9NPSmdgSpL5NjFXBa pLekQiL4n5I9St2KTXl9 SD12RI65hCMkt0G2 hPR8T4LdZOWrrzpcdylh dOZ2ARKdYITgpW83Bq1g jRvsXn3kQRCiQES3FAIw uOCvU5UjgR5bGrLe NNUaLIYgF9BviRRqGCra D910XHllKuP7ITZhbqWr X8WmQOHjpRexGzX9t3A7 Cj5WGKVuSL11ZRA6 aOB7PE77PD68Y2AjFjhw dGFibGU+PHRhYmxlIHdp ZHRoPScxMDAlJyBzdHls IM6kVj5lHIZwZWJa dEcxuATaKtJla1bvQOGl CHwiHW0neNgaL8IfrEA0 TQYum6k5Pt01C64iX5Ax dXA+QOEueSA4iPV1 fV8oDvEoFxS6BLscE031 EqDwbZQwVsifp5mrc0vl cPc8OwA0WSJbyeGltAsm CJR4g4AsYo04C91f IHdpZHRoPSIxNSUiIHZh bSzaan8tpK3lDw7+PGNv rTB5nIY9fH2sUqAnHsR4 LJisA692OpBdtIZf Xodmz9xki1sfxQy0JzSr MQNndgDfuDutVDE1l7Uz Fl55D9YcxAhab8GzAyg9 ii52aXArd1G0tGI4 R0AnXGXixfkykISekMsd VH9pXDObtdcwXYZsvR8v HDFiE1s4WlSwEyE2MIct R0QcfjI9ZYXqhJHu NCedPZV6J84lu6Q7KGZg JSCpDQI7gSR6yO7qwVcm bjogbGVmdDsgdmVydGlj SPjyDIisK937UMKa rHnnGMFzoC6qZQAxeVBe vCktOI3lJAVkljfbKxsV SS0MSVVCQBnWKEOGOKL3 M2PhGfu1RTJqnLiv TU3ysIVzKMcsIn3jtKmc nVwyCF5gUIHxdpovMOLo aC2gOGJucTJgnSagVN1r ITApvbvww598YoSk VFX2BNEebOYgZ9WelN7f CmAyZJXrRIDgQ4FasGKb HQzcQ714SSapFnW7UTYl yxNgQ8AzAIGayUhc IqW1o2J5Yt9wFX3iBV9j MAauHD46QP76vFZwj5D6 rZD8J4MgKREeftflivrh vQW7PHFdEEHmdY29 jWAcCPezZw6fo1Z8a916 FHWhFVYbjT83Ek5acNew GUMhnPBUqD6kpinel6ep cjogIzAwMDAwMDt0 FGv1UXHfyUzzYdFlBWI0 HhB1NTV4hJJutK9geAgx xjyxqE2aEzo+NDkgWWVh biC4Y6UoYrw2TVWs vJthKT8ilYTjWAhaBf6n aJhfjAnuCY7tPPHsloqc XGSmmA5nUGIisCCjyZgi TU0zAJPtlthzy980 ZePrCTL2SFGuiUByB5Hv yR5tRvKmRMJaFOQnN9Bq uAPlYPmoG071LWilVeT7 JYSblwPfJ1RkKNRy gYtkUkU9c3N4Zr3ZJJen RB03EX79jRGfk4V2lKH5 K7UdBFVewmniigtgiYU0 BOGtAXNmkR51pMVr OEulXv8lv4H5l378PYUh JRQyfY81Ew5znOgiBPHf kPLTpQ8amylgt7abnqad HsLoCSNfTRk1OWh7 QZMuiShpGvEyRBD2FvJ8 NAJ5lCFviH2faFmhhypo xF3mMob+NOLhLZCss3Kt s1OzSG47MH97C9Gp PjwvdGFibGU+PHRhYmxl IHdpZHRoPScxMDAlJyBz sRceSX8sVf0wGPQoVGZc iCbrzMRhLvWsu7vi OWYzMUghTR3zsMbrU9Hc rJC4NRIqc6e5Ij89K82s A6ZpnWD+DDZrvPW9qSK3 gR9aAyOjEfM8GPhu D607EhVnmBJwDxnmq8gk c7cskRn4MoRsQFCcktDk fNehZWT0c2YdEs50T51r IHdpZHRoPSIyMCUi UMKbvDiecl5exQ9mGk4+ HTMiqLZ4kVJ8hV9lNtSg ZoV0JMrrK205EyCcfHRf LmilR71qB4AeoLG+ PCOhTna8VPMlmXigCD1g sRXhFJxtRe5cOCK6YlHi BmUwSOjqB9YkGNKuhbip bialfTQ8ZLQmQXNw jW00Qj0ecNobRl1fGVUo JOG5IQSxqRHtF0CxwZ2o WeLqRFJeHRVaG8SvhWJh VVxjQ476LYjxOeC4 ILHgqfZtY4AbAMFqlVjy GiV2o8C8En8YfQrjqUCn RV7bVyYhFRd8F5NnZzx2 QLJxyJhjYE1gvXVa XLtwPq2npVzlsNriFO5f CRXhfddil555AhGuy5gl ZSIwfFBzEVeaDEY7A66e i5P2ENMcXRLpMES1 mSE4kF1dbZrvgehqqMQv dDsgdmVydGljYWwtYWxp J449UUWdpMxeUmOKUry3 Q4KsGtg8NJOdzPjw DR1ztWSsUUwgMi8lxMoy jIabGT5zSTHespmyi992 WqMyd1fpWESqdARhAPkk YNY2S19ps8X7ZPBc TXBnETW0pKL7lU9xnVdj bjogbGVmdDsgdmVydGlj IJmnVWbmU319XIEqrBog Kq5VZsg5U1KkVxu6 GXWdkCmqUW3qpSUfPVeq Li6vpSpvaKfsPF2oYZUu fspll876DjOqu0hvYEBu iUScJZqaFKN4S22j m9C0JMEgXGNyRVW3jYS7 pO8qtNunawjipREpeGez ntMkeXbqQWxgVGlwS915 IHRvcDsnPlBheWVy OjwvdGQ+WF18dk40R0Ad JgyaYaf6YGCiAWS0nJV8 pZ7iPVPwWSrcr5T5gBM3 C8WjqyQqrl6ab1gc YXBz (more content not included)... Normal [facility] Enteric Panel by PCRon 12-25 C. coli+jejuni+upsalie nsis DNA SHANEKA+non-probe Ql (Stl) Not detected [facility] Comment on above: Result Comment: Test ing was performed utilizing reverse hris administrator (RT), polymerase chain reaction (PCR), and array hybridization to detect specific gastrointestinal microbial nucleic acid gene sequences associated with the following pathogenic bacteria and viruses:Campylobacter Group (composed of C. coli, C. jejuni, and C. carola), Salmonella species, Shigella species (including S. dysenteriae, S. boydii, S. sonnei and S. flexneri), Vibrio Group (composed of V. cholera and V. parahaemolyticus), Yersinia enterocolitica, Norovirus GI/GII, and Rotavirus A. In addition, EPdetects Shiga toxin 1 gene and Shiga toxin 2 gene virulence markers. Shiga toxin producing E. coli (STEC) typically harbor one or both genes that encode for Shiga toxins 1 and 2. Campylobacter group, Salmonella species, Shigella species, Vibrio group, Rotavirus A, Shiga Toxin 1, Shiga Toxin 2, Norovirus GI/GII, and Yersinia enterocolitica were tested by Verigene nulcleic acid test. Performed By: #### 1 [id number], [id number], 52363002, 34523567, 15448162, [id number] ####[facility] [address] [place] [address] E. coli stx1+stx2 genes SHANEKA+non-probe Ql (Stl) Negative [facility] Comment on above: Performed By: #### 1 1789366, [id number], 90921385, 60028609, 12094210, [id number] ####[facility] [address] [place] [address] Enteric Panel by PCR Negative [facility] Enteric Panel Intrl QC Pass [facility] Comment on above: Result Comment: Test ing was performed utilizing reverse hris administrator (RT), polymerase chain reaction (PCR), and array hybridization to detect specific gastrointestinal microbial nucleic acid gene sequences associated with the following pathogenic bacteria and viruses:Campylobacter Group (composed of C. coli, C. jejuni, and C. carola), Salmonella species, Shigella species (including S. dysenteriae, S. boydii, S. sonnei and S. flexneri), Vibrio Group (composed of V. cholera and V. parahaemolyticus), Yersinia enterocolitica, Norovirus GI/GII, and Rotavirus A. In addition, EPdetects Shiga toxin 1 gene and Shiga toxin 2 gene virulence markers. Shiga toxin producing E. coli (STEC) typically harbor one or both genes that encode for Shiga toxins 1 and 2. Performed By: #### 1 [id number], [id number], 61350389, 61082974, 22690252, [id number] ####[place] [address] [place] [address] Norovirus genogroup I+II RNA SHANEKA+non-probe Ql (Stl) Not detected Normal [facility] Comment on above: Performed By: #### 1 0419454, [id number], 27268946, 48585501, 13609647, [id number] ####[facility] [address] [place] [address] Rotavirus A RNA SHANEKA+non-probe Ql (Stl) Not detected Normal [facility] Comment on above: Performed By: #### 1 5589361, [id number], 35068004, 62288634, 95995603, [id number] ####[facility] [address] [place] [address] S. enterica+bongori DNA SHANEKA+non-probe Ql (Stl) Not detected Normal [facility] Comment on above: Result Comment: This test result should be correlated with clinical presentations and medical history by a healthcare provider to determine its clinical significance. Performed By: #### 1 5972154, [id number], 41134870, 81306616, 19011922, [id number] ####[facility] [address] [place] [address] Shigella species+EIEC invasion plasmid antigen H ipaH gene SHANEKA+non-probe Ql (Stl) Not detected Normal [facility] Comment on above: Performed By: #### 1 4480429, [id number], 31550302, 38800495, 81919506, [id number] ####[facility] [address] [place] [address] V. cholerae+parahaemol yticus+vulnificus DNA SHANEKA+non-probe Ql (Stl) Not detected Normal [facility] Comment on above: Performed By: #### 1 1525185, [id number], 47712798, 47173937, 16230429, [id number] ####[facility] [address] [place] [address] Y. enterocolitica DNA SHANEKA+non-probe Ql (Stl) Not detected Normal [facility] Comment on above: Performed By: #### 1 1742162, 5713541502, 78610038, 17730803, 58013972, 7330841751 ####[facility] [address] [place] [address] C. Difficile PCRon C. Difficile PCR Unable to perform test due to consistency of stool. C. Difficile testing will only be performed on diarrheal (unformed) stool unless ileus due to C. difficile is expected. Reference: Clinical Practice Guidelines for Clostridium difficile Infection in Adults, Infection and Hospital Epidemiology March 2010, Vol 31, No 5. Normal [facility] Cdiff Specimen Acceptable Unacceptable Normal [facility] Comment on above: Performed By: #### 1 [id number], [id number], 35953340, 76818935, 04852790, [id number] #### [facility] [address] [place] [address] Order Cancelled YES Normal [facility] Comment on above: Performed By: #### 1 3507830, [id number], 54371089, 03205826, 88958096, [id number] #### [facility] [address] [place] [address] Fecal WBC Lactoferrinon 11-27 Fecal WBC Lactoferrin Negative Normal Negative [facility] Comment on above: Result Comment: The semi-quantitative detection of elevated levels of fecal lactoferrin is a marker for fecal leukocytes and an indication of intestinal inflammation. Performed By: #### 1 6570397, [id number], 16397960, 91540602, 19371782, [id number] #### [facility] [address] [place] [address] [place] [address] Coding Summary.on 11-06-2022 Coding Summary. CD:[id number] Gh0bWw+PGhlYWQ+PE1FV RNoM30ypPPbnB9ME8sDG S5AMYIWDZQWAD7KDZ7uy JN0MZziL0KrehTg ZjkppSNkBE58FSd2TNA7 fMmrNApwnF5xgXPhT2m8 IyHnFV82jR77AGlxTVNa FtJ0RrYuihpgqNRq L7qpOeVkdKKlYex+PHRh YmxlIHdpZHRoPScxMDAl TjMqdRpvWT4pPu7tRJRy LWNvbGxhcHNlOiBj b0rsEQUuVZbbEJ7evZrp S7NaeMY3FNGdi3z6Bf36 dHI+NCVeGUJ9iXsmSMxi v191OoPba5faQPL8 dHBfORjmWUH3R68xp3N6 IHIdPKXlBQF7pBI4lL0n bWazddxbD7SvkUAmHnO6 TBZ7yABxbH1cdBik fghmjL8pNbh+H91NWA1C AEXSAZ5ZRlk6H9DuVunb dHI+ZB78QUKoQW65eAPf kUUom4qwkKa6TgIw YXAnGRX0gEwtDChkv1Yh EAFcC75mhQJxr3D6RNPl uLpgwSIeUsOfeFY0mL7v RYbryylzv0qswysj Kcftj0tskd81oT24U16x TEvzMKBiIQZ0XPAaZPLc vKccwj4lgM3fPk1+IDxj i2joc2tsgJs7TnBl HKVcrxFsjLjfWIV4h1Ui Ro47M0KlySgqb8WyPcp7 fd66kNXec5G9kQP2QLqq FOMbkT7kPUtuRqX6 JDTwFpTboI33vJJrIQtw Rh4czOtmtPygPA7oHRYw bkutNBKfgK9cQNLilLSf tQfkJC5cPVUhlpuv w601OrAiISU7YLAckVXc K9UufP3pJjDmSPIbCPVb L1MqtHQbNMfyT900AOpa CqS2ICAjrqXsS0Jr PXPliOmjOmC6l7Z1Mv2T z9KhqoboNIY1FXnlICVl AgTeMdJxBeL8P5TeEyv7 VZBgvAktDJ3qT8Qk HAVjxigbqoxbaFE0PHHy UQXziT86nNTdGHwfSg4l g6X4m345SOXxMUSfhJ20 Uq6xsAmlFPMmlZYK qB0hrduze0modpkqRwBg DFDrHLn2IXa5QZLajYmu FzDiHWS8PoT6ZGX6iIHf tG2whKwulxvacC2h Oyc+A50qqO1nEGD3XSJ4 zjgwPSNizwEgTW53ZX71 L1RiKkbjwPRidTP+PGRp tdBobObqVG7aGxLf q4jaj7CeNEawY0EnRSUf IChrWks5YBZnBRH7wZL9 sL8mSDWsLVoia6M1hFT9 S2UnwdCfae7rt8ls SIQgYPiiS82phWUvp9O1 KNCwxUS1WRJiuVafRoWz zH14Lmb+SHCifPmzx1Fu Pbpqc7ojf1xzzYz2 IjMwJSIgdmFsaWduPSJ0 o5IpRl53Z05hGPlfEVQt JXHhNHHyGOYecJnoip9v zV2cEa9+PGNvbCB3 cBU2hQ4pFSQpLcK2DEnb V958CnTfuCKwDpftt0di c6issYd7FwTrWCNjapKh nNteEFH2l3BpDu44 T21rKIqeREEgBVJvPJUd PBUcaNlurs8xkU5aLt4+ TS9pk2utkz75lF96oFL+ FCQwDVQ6oKksCSlk JEVxfP7hRYupRlI4ILXd SeTheZ72cGXuRTnbOw3f gIwrfXifXU8gGLQmlaja h395RsKdp9wtUZHx hJKwVJkeLJB4W48ik6U6 LJCgMIVdSQW0nBM5tS5y bGlnbjogbGVmdDsgdmVy hRcfCXfpHGvyZ598 IHRvcDsnPlBhdGllbnQg CjFgWWm0C5PjIil3PLHi jFfiWI5dmSSeGLklJh0u sOpgqDgsEW9tTQEf mekjs053FaFed3efGDYg zQQvORmkNEG6S03bn8E4 GOUcIOXyRTC5aGA5pL5y bGlnbjogbGVmdDsg deZrhPodUXcyUDbvA787 IHRvcDsnPkJpcnRoIERh mNA8LS43TV52kRNvk6T9 qOW4P4YdZNKuggpi zxgskHB1YVQkDMMldF98 Wz6tlKsrNx3lOYKuLJU6 NKGghVAdW2DajY3vGjZm WJQeDHOvY8OawCDj EBmnB220UPeeFzA9KIIu elVyV0BkNSBzeNrsBaN6 a1D6Gq4NL6J0XO99BD97 vBPuv6X6mBI3X9Na BFWekribhatqrLN6LLDr LFDrbM04Mf4ehArwZu3u LZRbXOQ2ZUBfuPRxD5Nj dR8zNwIgEYPrFYFk Q9VtfTCmLQriY900RJdi PuM2QYTnpuNhZ4FfEZEs pSzyMzC8s0A0Nk3THGr9 KO99LC45jQMwa5O1 eEC2V9AwNKVynzfnibqq vZO0SOFxETKjvW31Hf5x oTkqSz4vMVLsBQT7RLDa tELfO4PeuF4bFiVy BYGxQTErE1QwtTTtYUhc R471BKxaXyS4RALgpcGm H8RzIDQzfEkwXaV1g1X9 Au1HVTGtHR62IDD3 tKD9VL02ZL74A6SbFpad dGFibGU+PHRhYmxlIHdp ZHRoPScxMDAlJyBzdHls NS2lGt8cJZLzZMCz cPmsuBAgLcEsg4ucHUFh OIdxFZ1sjGpoC2XvtAE8 WUEog8g4Fe06Z67tO7Yq dXA+NNViaRB5lKI7 cP1jMcXuClP3IWzfB411 XlKpbJOjPhrrk2ybh3mx gSf9RyQ1VNCxmnUntQuv YWO9q2CiFv19B60n IHdpZHRoPSIxNSUiIHZh ySjgin4agM4pTq6+PGNv cPN7vQQ2jB5wZnFlMjI0 GWelX289LrWxlBDq Fzyoj3tat8zzeKz3QvXw UYVkmkPfyFvdXUV8v1Nn Du27W2NtuLtki1LgVrs3 dq48nGEnv9H5cSG2 W2XkIYSpcekrvAKiyTkw EA7xFFQiepqyCCKisJ4g GAXuD2e2EvPbHqU4MBsf M7ElozI7GNLqmLOt ZBceBDR8F55xu2Z1CKRh CQPiEZE9vGC7uD0hwIhd bjogbGVmdDsgdmVydGlj VShrWJuyK614AYWv aNvyUAZdrU5gHIFrhHDz nSwjBK6zTFBjhgciPjzM QS0HCPMBDLfAWMUQLRX7 P0XcRtf0YGFxiZad IG7xsHYlQLfeSa0nbBar gMtuWJ4iOLOokifdJHWh oG5aYOFgfKCuvQfaOI9q MOQqejbfa942YcKe ZCP9XKAleWQiM3NpiD5w RwMsHRZcRNLnM8GbyFPg MGqvA784DFicVlN9PQQd krEmC1BiJFTcqFec EkH7a3Z1Au8bAN6vRE4i WHymXF41MB48rRIgp6T3 lNG4U0RlUQTlnlnlrnci bLK0KDRfTDVrbJ27 iUGzPVyvPl2ah6Z7k352 TVObVNDfrY78Zv8weNaz KXZxyHJMqC6nkrvmb1zm cjogIzAwMDAwMDt0 QYd8GVNjdJpvIkYbAEF2 QxR1RQD5pPJwlL9hcUip bdydmR5zKri+NDkgWWVh kiY7E5UqCyo7DNCz yApaOU7bkUSzVSysFu9n sGjpqGlqJD5kXUFnsulp XBFhgO1bBKXtaFIqsNdd GE5uOBZgahyqq614 LoKmYIU9WLRtiCEtK5Em gZ5mCmKjRWPmXZCsP7Id eKDyHQzyW606HLcaOaL7 AEYsxhTqO2QxATOp iGhuDkP7y8K7Fv5KZNtj TE70HU94lQMhm4J8vQL5 Z2LnWAAujhmocnyyyDR0 NTUrCOUyrJ20jXBb DXuvGq9oh9W2x977WDUv QLKhiK28Op3vdVmtTJXe pWMSvU8zgxvau6xvebkk HsGnRRCfHRy6QSa9 CMDhfOwbAaNsFPL8RzE1 LPT6zTGpfH2ccWlkraay rH1jBxo+B7B5fRA1aBOd dDwvdGQ+AJ22ay01 X6OjMcvvDzl5HGXuADL3 xNM2fQ7pHRNrQTnph9X5 hBR7L1FzmiUsjd5vf8nt DLScXAuvK24jgLZt i3G8JINdiSH2XIApdOdg SzDvtP35Vuf+PGNvbGdy q0JxQewzj0adt0ifqEs8 IjMwJSIgdmFsaWdu EBA0g9RcHa95D69wAZme ZHRoPSIzMCUiIHZhbGln vd6myG2lLy6+PGNvbCB3 cBX8zO0uFdFoEnE3 NAksV911WkQkhEFrVqvz s3lkh7rxgAk2YsOfARQm bxRvtXmfYRL5q0WnAc91 P3MujOusj4EpMhs8 fg79aLDrl2Z5gVJ6T0Hk FUAylrdhlGYrkBejQN2u HJTbiqzfNZElmM1pKSYd F4s9ZnPpGgM0SJyn X4OxkyP0VCNtnWGoPDQa rYVFnY6pqbqmw6ktevil MrHwZWGnECa5XTm8LYNo mAzlMvNhGOL8TlT5 CPH0sHNyyO5qbWxrarly hE9bGny+ILh4e4avkDFh GJ1icJB3EU23EX97uVMh u1S0xLW8R0YcICXk vvmwdzjkhJF7AQBfPKGo wD47Wn7dcUqfFs6qRQOg PHY8MHRqsAYnP2KpyF5e MjHbGJYsSYKbY8Rp nLMoNMejA900CRbpMqM7 AGWzwwWoM7OsJCLvkHoe IvI3l5V3Nm3WVH77AG11 NM46yQIbe2C8vYB2 U0PuXORcqsduuhmkpAJ6 HXMcGIVblU38Ye5ijBxu Ql0gRDOqHTW1UNNgsXKz S0WkxD2aJwMkOLNx NTVdW4AssAUuIHazF013 OLeoLhT9ZQBsuvStS8Eu CJViuQbnLaT9j4B4Hi3H Bq30RK34JE99eDBa p3E7cOD5C0VaFRIbkngj mpdrkLX2LPVfAABhhW72 Jn9ctPoxUa6tMEOtBNC2 IIViyJOcD7FtoA7t WtMtTQVfJIEiT7XgqOBr RYdoT662IAulHqY9YIVj svRdN0NaYMUotVnfGdJ9 v5W3Gr0CDDmnibg2 F8ZmNnyruFQ+VP71JVRq DB53uCUmvFXkb9jhgGx1 NtVvXXOkKNB2wJfiRPdu g5ToSJHmM27sgNNt c2U6 (more content not included)... Normal [facility] Consent for Procedure/Surger yon 11-05-2022 Consent for Procedure/Surgery [id number] Normal [facility] Ambulatory Visit Summaryon 1 01-02-2022 Ambulatory Visit Summary HARI THORNTON :1975 Visit Date:11/01/2022 Ambulatory Visit Instructions Your Diagnosis Irregular bowel habits Abdominal cramping Dysphagia Heartburn History of colon polyps Your Care Team Attending Physician - Sue Qureshi CNP Primary Care Physician - NARAYAN GAGNON DO This Is Your Medications List omeprazole (omeprazole 40 mg Cap-DR) polyethylene glycol 3350 with electrolytes (NuLYTELY Zimmer oral powder for reconstitution) Contact prescribing physician if questions or concerns acetaminophen-oxycod one (Percocet 325 mg-5 mg Tab) acetaminophen-oxycod one (Percocet 325 mg-5 mg Tab) aspirin (aspirin 81 mg Chew Tab) clonazepam divalproex sodium (divalproex sodium 500 mg ER Tab) docusate (Colace 100 mg Cap) dulaglutide (Trulicity Pen 3 mg/0.5 mL subcutaneous solution) glimepiride (glimepiride 2 mg Tab) iloperidone (Fanapt) lisinopril (lisinopril 20 mg Tab) metformin (metformin 500 mg oral tablet) polycarbophil (Fiber Lax 625 mg oral tablet) pravastatin (pravastatin 20 mg Tab) primidone (primidone 50 mg Tab) tizanidine (tizanidine 4 mg oral capsule) tramadol (tramadol 50 mg oral tablet) trazodone (traZODONE 100 mg Tab) verapamil (verapamil 180 mg Cap-ER) Procedures Performed Total knee arthroplasty (01/22/2022), Total knee replacement (01/22/2022), Hydrocelectomy (07/28/2020), Arthroscopy of knee, Bilateral inguinal hernia repair, Carpal tunnel release, Excision of cholesteatoma, History of repair of umbilical hernia, Laser eye surgery, Nasal polypectomy, Removal of toenail. Discharge Vitals Temperature (Temporal Artery) 36.6 ?C Heart Rate (Peripheral) 89 Blood Pressure 93/59 Height 171 cm Height 67 in Weight 78.9 kg Weight 173.58 lb BMI 26.98 What to do next Scheduled Follow-Up Appointments Saturday 12:40 PM EST Where: [facility] You Need to Schedule the Following Appointments Follow Up with Sue Qureshi CNP When: Within 1 to 2 weeks Comments: Following colonoscopy. Where: You Need to Complete the Following CBC w/ Auto Diff, Blood, Routine collect, 11/01/22, Order for future visit, Lab Collect, Irregular bowel habits Invalid Interpretation Code Abdominal cramping, Print Label By Order Location\.br\ Comprehensive Metabolic Panel, Blood, Routine collect, 11/01/22, Order for future visit, Lab Collect, Irregular bowel habits [facility] Auto Diffon 11-01-2022 Basophils/100 WBC (Bld) 0.8 % Normal 0.0-2.0 [facility] Comment on above: Order Comment: Order Added by Discern Expert. Performed By: #### 2 959225, 4108058, 3841378, [id number] ####[facility] [address] [place] [address] Basophils/Leukocyte s Auto (Bld) [Pure # fraction] 0.0 E9/L Normal 0.0-0.2 [facility] Comment on above: Order Comment: Order Added by Discern Expert. Performed By: #### 2 578770, 5671860, 2911297, 50002094 ####[address] [address] Eosinophils/100 WBC (Bld) 0.4 % Normal 0.0-8.0 [facility] Comment on above: Order Comment: Order Added by Discern Expert. Performed By: #### 2 151093, 1060472, 0962037, 24687875 ####[address] [address] Eosinophils/Leukocy dianne Auto (Bld) [Pure # fraction] 0.0 E9/L Normal 0.0-0.5 [facility] Comment on above: Order Comment: Order Added by Michael Expert. Performed By: #### 2 238728, 7826795, 8845525, 16604430 ####[address] [address] Lymphocytes/100 WBC (Bld) 35.8 % Normal 14.0-50.0 [facility] Comment on above: Order Comment: Order Added by Michael Expert. Performed By: #### 2 168914, 4230976, 5203594, 08043861 ####[address] [address] Lymphocytes/Leukocy dianne Auto (Bld) [Pure # fraction] 1.5 E9/L Normal 1.0-4.0 [facility] Comment on above: Order Comment: Order Added by Discern Expert. Performed By: #### 2 198724, 4101177, 2858653, 65883030 ####[address] [address] Monocytes/100 WBC (Bld) 15.7 % High 4.0-14.0 [facility] Comment on above: Order Comment: Order Added by Michael Expert. Performed By: #### 2 292953, 3358782, 3667881, 17024246 ####[address] [address] Monocytes/Leukocyte s Auto (Bld) [Pure # fraction] 0.6 E9/L Normal 0.2-1.0 [facility] Comment on above: Order Comment: Order Added by Discern Expert. Performed By: #### 2 951205, 5654516, 8730854, 46830276 ####[address] [address] Neutrophils/100 WBC (Bld) 47.3 % Normal 36.0-75.0 [facility] Comment on above: Order Comment: Order Added by Discern Expert. Performed By: #### 2 181832, 5278519, 6403588, 95576542 ####[address] [address] Neutrophils/Leukocy dianne Auto (Bld) [Pure # fraction] 1.9 E9/L Low 2.0-7.5 [facility] Comment on above: Order Comment: Order Added by Discern Expert. Performed By: #### 2 114587, 1639614, 5497918, 70864852 ####[address] [address] CBC w/ Auto Diffon Erythrocyte distribution width (RBC) [Ratio] 14.3 % High 10.9-14.2 [facility] Comment on above: Performed By: #### 2 612785, 7754557, 8627406, 79103628 ####[address] [address] Hematocrit (Bld) [Volume fraction] 41.4 % Normal 37.7-49.0 [facility] Comment on above: Performed By: #### 2 755666, 2205865, 3616208, 91980004 ####[address] [address] Hemoglobin (Bld) [Mass/Vol] 14.4 g/dL Normal 13.5-17.5 [facility] Comment on above: Performed By: #### 2 110593, 7829539, 2550255, 80047353 ####[address] [place] [address] MCH (RBC) [Entitic mass] 31.2 pg Normal 27.0-34.0 [facility] Comment on above: Performed By: #### 2 372833, 5189415, 6266406, 13733602 ####[address] [address] MCHC (RBC) [Mass/Vol] 34.8 g/dL Normal 31.4-36.0 [facility] Comment on above: Performed By: #### 2 078898, 8919481, 6426812, 86609228 ####[place] [id number] MCV (RBC) [Entitic vol] 89.9 fL Normal 80.0-100.0 [facility] Comment on above: Performed By: #### 2 084581, 2385934, 5027614, 05340249 ####[place] [address] Platelet mean volume (Bld) [Entitic vol] 7.0 fL Normal 6.4-10.8 [facility] Comment on above: Performed By: #### 2 735624, 6945057, 8589176, 71120935 ####[address] [address] Platelets (Bld) [#/Vol] 221.0 E9/L Normal 150.0-500.0 [facility] Comment on above: Performed By: #### 2 732683, 2141028, 1117604, 54032476 ####[address] [address] RBC (Bld) [#/Vol] 4.6 E12/L Normal 4.3-5.9 [facility] Comment on above: Performed By: #### 2 393828, 2028091, 6454550, 97484202 ####[address] [address] WBC corrected for nucl RBC Auto (Bld) [#/Vol] 4.1 E9/L Normal 4.0-11.0 [facility] Comment on above: Result Comment: Slid e reviewed by KD. Performed By: #### 2 381795, 5404047, 5167189, 22692206 ####[facility] [address] [place] [address] CMPon 11-01-2022 Albumin [Mass/Vol] 4.3 g/dL Normal 3.3-5.0 [facility] Comment on above: Performed By: #### 2 232062, 5513777, 3100948, 90028119 ####[facility] [address] [place] [address] Albumin/Globulin (S) [Mass conc ratio] 1.4 Normal 1.1-2.2 [facility] Comment on above: Performed By: #### 2 075807, 8925767, 4423840, 02273599 ####[facility] [address] [place] [address] ALP [Catalytic activity/Vol] 62 Int._Unit/L Normal 21-98 [facility] Comment on above: Performed By: #### 2 050436, 3263292, 4526115, 65891272 ####[facility] [address] [place] [address] ALT No additional P-5'-P [Catalytic activity/Vol] 16 Int._Unit/L Normal 6-46 [facility] Comment on above: Performed By: #### 2 853654, 4879504, 6245599, 81684061 ####[facility] [address] [place] [address] Anion gap [Moles/Vol] 10 mmol/L Normal 6-16 [facility] Comment on above: Performed By: #### 2 354893, 0280448, 2496766, 67422008 ####[facility] [address] [place] [address] AST [Catalytic activity/Vol] 14 Int._Unit/L Normal 5-43 [facility] Comment on above: Performed By: #### 2 893563, 6983545, 4692774, 67191211 ####[facility] [address] [place] [address] Bilirubin [Mass/Vol] 0.5 mg/dL Normal 0.0-1.1 [facility] Comment on above: Performed By: #### 2 686398, 9203728, 0372484, 76843916 ####[facility] [address] [place] [address] Calcium [Mass/Vol] 9.4 mg/dL Normal 8.9-11.1 [facility] Comment on above: Performed By: #### 2 378887, 7267804, 6702190, 20757561 ####[facility] [address] [facility] [place] [facility] [place] [address] Chloride [Moles/Vol] 108 mmol/L Normal 101-111 [facility] Comment on above: Performed By: #### 2 999426, 3029808, 4999616, 48967109 ####[facility] [address] [facility] [place] [facility] [place] [address] CO2 [Moles/Vol] 22 mmol/L Normal 21-[address] [facility] Comment on above: Performed By: #### 2 373396, 4211891, 1593568, 91207627 ####[facility] [address] [facility] [place] [address] Creatinine [Mass/Vol] 0.7 mg/dL Normal 0.5-1.3 [facility] Comment on above: Performed By: #### 2 809868, 4459490, 6961588, 18418643 ####[facility] [address] [facility] [place] [address] Globulin (S) [Mass/Vol] 3.0 g/dL Normal 1.4-4.0 [facility] Comment on above: Performed By: #### 2 820037, 2302927, 6861787, 56281326 ####[facility] [address] [facility] [place] [address] Glucose [Mass/Vol] 219 mg/dL High 55-199 [facility] Comment on above: Result Comment: If t his glucose result represents a fasting glucose, interpretation should refer to the following reference range: 55-99 mg/dL Performed By: #### 2 321427, 3296398, 5440820, 50771014 ####[facility] [address] [place] [address] Potassium [Moles/Vol] 4.3 mmol/L Normal 3.5-5.3 [facility] Comment on above: Performed By: #### 2 747445, 0104022, 9379965, 14294395 ####[facility] [address] [place] [address] Protein [Mass/Vol] 7.3 g/dL Normal 6.0-7.8 [facility] Comment on above: Performed By: #### 2 962488, 2030848, 4610443, 69553918 ####[facility] [address] [place] [address] Sodium [Moles/Vol] 136 mmol/L Normal 135-145 [facility] Comment on above: Performed By: #### 2 [id number], [id number], [id number], [id number] ####[facility] [address] [place] [address] Urea nitrogen [Mass/Vol] 26 mg/dL High 5-21 [facility] Comment on above: Performed By: #### 2 [id number], [id number], [id number] ####[facility] [address] [place] [address] Urea nitrogen/Creatinine [Mass ratio] 37 No Units High 10-20 [facility] Comment on above: Performed By: #### 2 [id number], [id number], [id number], [id number] ####[facility] [address] [place] [address] CULTURE URINEon 11-01-2022 CULTURE URINE Culture Observations: NO GROWTH. Normal [facility] Comment on above: Performed By: #### U RCX #### [facility] [address] [address] [address] Pam Granger Consent for Treatmenton Consent for Treatment [id number] #1.00CD:127 Normal [facility] GLYCOHEMOGLOBIN A1Con 2021 ADA RECOMMENDATION SEE BELOW Normal [facility] Comment on above: Result Comment: ADA RECOMMENDED LIMIT 4.0 - 6.0 ADA THERAPEUTIC TARGET < 7.0 ACTION SUGGESTED > 7.0 Performed By: #### A 1C #### [facility] [address] [address] [address] Pam Granger Glucose [Mass/Vol] 189 mg/dL Normal [facility] Comment on above: Performed By: #### A 1C #### [facility] [address] [address] [address] Pam Granger HbA1c (Bld) [Mass fraction] 8.2 % Critically high 4.5-6.2 [facility] Comment on above: Performed By: #### A 1C #### [facility] [address] [address] [address] Pam Granger Gastroenterology Office/Clin ic Noteon 11-01-2022 Gastroenterology Office/Clinic Note Chief Complaint Diarrhea and cramps HPI Staff Patient is a 47 year old male referred by Dr Gagnon to schedule a colonoscopy. Patient c/o diarrhea and cramps. History of Present Illness Patient is a 47-year-old male who presents for referral from his PCP?Dr. Gagnon for colonoscopy. Presents with his mother today. Patient's mother is primary source of information. Patient with PMH of DM, type 2, HTN, HLD, KOKI, mild cognitive impairment?managed by patient's PCP. Family history of colon cancer: Denies. Family history of colon polyps: Denies. Personal history of colon cancer: Denies. Personal history of colon polyps: Yes, per patient's mother. Takes aspirin daily. During today's visit, patient's mother reports that patient has hx. diverticulosis and has been experiencing watery loose stools off/on for the last 2 years followed by episodes of hard hard stools off/on over the last 3 months. Is having 2-3 BMs daily that at times are loose or other times hard in consistency. Off/on mucus in stool. Patient verbalizes having lower abdominal cramping before having a BM. Patient reports pepto-bismol and antacid helps his abdominal cramping. Patient's mother explains he has been having lower abdominal cramping off/on over the last 2 years. Patient's mother reports patient has been having heartburn 1 time a week over the last year that he explains at times his Mylanta does not help. Patient reports having difficulty swallowing primarily solids and occasionally with liquids over the last 5 years. Patient explains meat triggers difficulty swallowing that improves with smaller pieces of meat. He is having difficulty swallowing solids and liquids daily. Takes fiber- lax every other day. Denies nausea/vomiting, denies fevers/chills, denies bloody stools. Denies having any other GI complaints. Review of Systems PHQ Score Initial Depression Screen Score: 0 ROS - Provider Constitutional: no fever, no chills. Skin: no Jaundice. ENMT: Yes dysphagia and heartburn- see HPI for details regarding. Respiratory: no shortness of breath. Cardiovascular: no chest pain. Gastrointestinal: no nausea, no vomiting, yes loose stools, no GI bleeding. Physical Exam Vitals & Measurements T: 36.6 ?C(Temporal Artery) HR: 89(Peripheral) BP: 93/59 HT: 67 in HT: 171 cm WT: 78.9 kg WT: 173.58 lb BMI: 26.98 General: Well developed, well nourished, in no acute distress Head: Normocephalic/atraum atic Lungs: Normal respiratory effort and clear to auscultation Cardio: Regular rate and rhythm, normal S1 and S2, no murmur, no rub Abdomen: Soft, non-distended, non-tender. Normoactive bowel sounds present in all 4 abdominal quadrants, bilaterally. Mental Status: Alert and oriented x3. Normal mood and affect Assessment/Plan 1. Irregular bowel habits (R19.8: Other specified symptoms and signs involving the digestive system and abdomen) Watery loose stools off/on for the last 2 years followed by episodes of hard hard stools off/on over the last 3 months. Is having 2-3 BMs daily that at times are loose or other times hard in consistency. Off/on mucus in stool. Ordered CBC/CMP to evaluate for acute process. Ordered stool testing to evaluate for infectious process. Ordered Colonoscopy. Educated to stop fiber-lax. Educated to start metamucil 1 capsule daily- instructed regarding use. Ordered: CBC w/ Auto Diff Clostridium Difficile PCR Colonoscopy (Hospital Procedure) Comprehensive Metabolic Panel Enteric Panel by PCR Fecal WBC Lactoferrin Giardia lamblia, Direct Detection EIA O & P Exam, Routine 2. Abdominal cramping (R10.9: Unspecified abdominal pain) Is having lower abdominal cramping before having a BM. Patient reports pepto-bismol and antacid helps his abdominal cramping. Patient's mother explains he has been having lower abdominal cramping off/on over the last 2 years. Ordered ultrasound of abdomen to evaluate for acute process. Ordered CBC/CMP to evaluate for acute process. Ordered stool testing to evaluate for infectious process. Ordered Colonoscopy. Ordered: CBC w/ Auto Diff Clostridium Difficile PCR Colonoscopy (Hospital Procedure) Comprehensive Metabolic Panel Enteric Panel by PCR Fecal WBC Lactoferrin Giardia lamblia, Direct Detection EIA O & P Exam, Routine 3. Dysphagia (R13.10: Dysphagia, unspecified) Is having difficulty swallowing primarily solids and occasionally with liquids over the last 5 years. Is occurring daily. Ordered EGD with possible dilation. Ordered: EGD Endoscopy (Hospital Procedure) 4. Heartburn (R12: Heartburn) Heartburn 1 time a week over the last year that he explains at times his antacid does not help. Ordered EGD to evaluate for PUD. Ordered omeprazole 40mg daily- instructed regarding use. Ordered: omeprazole, 40 mg = 1 cap(s), Oral, Daily, X 90 day(s), # 90 cap(s), Refills(s) 0, Pharmacy: [id number], 171, cm, 11/01/22 12:17:00 EST, Height/Length Dosing, 78.9, kg, 12 (more content not included)... Normal [facility] Comment on above: Result Comment: Elec tronically Signed By: Sue Qureshi CNP\.montserrat\Date and Time Signed: 11/01/22 12:51 EST Patient Educationon 11-01-20 Patient Education Radiology Colonoscopy, Adult A colonoscopy is an exam to look at the entire large intestine. During the exam, a lubricated, flexible tube that has a camera on the end of it is inserted into the anus and then passed into the rectum, colon, and other parts of the large intestine. You may have a colonoscopy as a part of normal colorectal screening or if you have certain symptoms, such as: ? Lack of red blood cells (anemia). ? Diarrhea that does not go away. ? Abdominal pain. ? Blood in your stool (feces). A colonoscopy can help screen for and diagnose medical problems, including: ? Tumors. ? Polyps. ? Inflammation. ? Areas of bleeding. Tell a health care provider about: ? Any allergies you have. ? All medicines you are taking, including vitamins, herbs, eye drops, creams, and lqhu-zxb-davoows medicines. ? Any problems you or family members have had with anesthetic medicines. ? Any blood disorders you have. ? Any surgeries you have had. ? Any medical conditions you have. ? Any problems you have had passing stool. What are the risks? Generally, this is a safe procedure. However, problems may occur, including: ? Bleeding. ? A tear in the intestine. ? A reaction to medicines given during the exam. ? Infection (rare). What happens before the procedure? Eating and drinking restrictions Follow instructions from your health care provider about eating and drinking, which may include: ? A few days before the procedure ? follow a low-fiber diet. Avoid nuts, seeds, dried fruit, raw fruits, and vegetables. ? 1?3 days before the procedure ? follow a clear liquid diet. Drink only clear liquids, such as clear broth or bouillon, black coffee or tea, clear juice, clear soft drinks or sports drinks, gelatin dessert, and popsicles. Avoid any liquids that contain red or purple dye. ? On the day of the procedure ? do not eat or drink anything starting 2 hours before the procedure, or within the time period that your health care provider recommends. Up to 2 hours before the procedure, you may continue to drink clear liquids, such as water or clear fruit juice. Bowel prep If you were prescribed an oral bowel prep to clean out your colon: ? Take it as told by your health care provider. Starting the day before your procedure, you will need to drink a large amount of medicated liquid. The liquid will cause you to have multiple loose stools until your stool is almost clear or light green. ? If your skin or anus gets irritated from diarrhea, you may use these to relieve the irritation: ? Medicated wipes, such as adult wet wipes with aloe and vitamin E. ? A skin-soothing product like petroleum jelly. ? If you vomit while drinking the bowel prep, take a break for up to 60 minutes and then begin the bowel prep again. If vomiting continues and you cannot take the bowel prep without vomiting, call your health care provider. ? To clean out your colon, you may also be given: ? Laxative medicines. ? Instructions about how to use an enema. General instructions ? Ask your health care provider about: ? Changing or stopping your regular medicines or supplements. This is especially important if you are taking iron supplements, diabetes medicines, or blood thinners. ? Taking medicines such as aspirin and ibuprofen. These medicines can thin your blood. Do not take these medicines before the procedure if your health care provider tells you not to. ? Plan to have someone take you home from the hospital or clinic. What happens during the procedure? ? An IV may be inserted into one of your veins. ? You will be given medicine to help you relax (sedative). ? To reduce your risk of infection: ? Your health care team will wash or sanitize their hands. ? Your anal area will be washed with soap. ? You will be asked to lie on your side with your knees bent. ? Your health care provider will lubricate a long, thin, flexible tube. The tube will have a camera and a light on the end. ? The tube will be inserted into your anus. ? The tube will be gently eased through your rectum and colon. ? Air will be delivered into your colon to keep it open. You may feel some pressure or cramping. ? The camera will be used to take images during the procedure. ? A small tissue sample may be removed to be examined under a microscope (biopsy). ? If small polyps are found, your health care provider may remove them and have them checked for cancer cells. ? When the exam is done, the tube will be removed. The procedure may vary among health care providers and hospitals. What happens after the procedure? ? Your blood pressure, heart rate, breathing rate, and blood oxygen level will be monitored until the medicines you were given have worn off. ? Do not drive for 24 hours after the exam. ? You may have a small amount of blood in your stool. ? You may pass gas and have mild abdominal cramping or bloating due to the air t (more content not included)... Normal [facility] UA RANDOM W/MICROSCOPICon BACTERIA NONE SEEN Normal NONE SEEN [facility] Comment on above: Performed By: #### A 1C #### [facility] [address] [place] [address] Dr. Pam Granger Bilirubin Ql (U) Negative Normal NEGATIVE [facility] Comment on above: Performed By: #### A 1C #### [facility] [address] [place] [address] Dr. Pam Granger CAST NONE SEEN Normal NONE SEEN [facility] Comment on above: Performed By: #### A 1C #### [facility] [address] [place] [address] Dr. Pam Granger Clarity (U) CLEAR Normal CLEAR [facility] Comment on above: Performed By: #### A 1C #### [facility] [address] [place] [address] Dr. Pam Granger Color (U) LT. YELLOW Normal YELLOW [facility] Comment on above: Performed By: #### A 1C #### [facility] [address] [place] [address] Dr. Pam Granger Crystals LM Nom (Urine sed) NONE SEEN Normal NONE SEEN [facility] Comment on above: Performed By: #### A 1C #### [facility] [address] [place] [address] Dr. Pam Granger Epithelial cells LM Ql (Urine sed) FEW Abnormal NONE SEEN /RARE [facility] Comment on above: Performed By: #### A 1C #### [facility] [address] [place] [address] Dr. Pam Granger Glucose Ql (U) >1000 Abnormal NEGATIVE [facility] Comment on above: Performed By: #### A 1C #### [facility] [address] [place] [address] Dr. Pam Granger Hemoglobin Ql (U) Negative Normal NEGATIVE [facility] Comment on above: Performed By: #### A 1C #### [facility] [address] [place] [address] Dr. Pam Granger Ketones Ql (U) TRACE Abnormal NEGATIVE [facility] Comment on above: Performed By: #### A 1C #### [facility] [address] [place] [address] Dr. Pam Granger LEUKOCYTES Negative Normal NEGATIVE [facility] Comment on above: Performed By: #### A 1C #### [facility] [address] [place] [address] Dr. Pam Granger MUCOUS NONE SEEN Normal NONE SEEN [facility] Comment on above: Performed By: #### A 1C #### [facility] [address] [place] [address] Dr. Pam Granger Nitrite Ql (U) Negative Normal NEGATIVE [facility] Comment on above: Performed By: #### A 1C #### [facility] [address] [place] [address] Dr. Pam Granger pH (U) 6.0 [pH] Normal 5-[address] [facility] Comment on above: Performed By: #### A 1C #### [facility] [address] [place] [address] Dr. Pam Granger RBC 0-2 Normal 0-[address] [facility] Comment on above: Performed By: #### A 1C #### [facility] [address] [place] [address] Dr. Pam Granger SPEC GRAVITY 1.025 Normal 1.005-<=1.025 [facility] Comment on above: Performed By: #### A 1C #### [facility] [address] [place] [address] Dr. Pam Granger UA PROTEIN Negative Normal NEGATIVE/ TRACE [facility] Comment on above: Performed By: #### A 1C #### [facility] [address] [place] [address] Dr. Pam Granger Urobilinogen Qn (U) 0.2 {Steve'U}/dL Normal 0.2 - 1. 0 [facility] Comment on above: Performed By: #### A 1C #### [facility] [address] [place] [address] Dr. Pam Granger WBC NONE SEEN Normal NONE SEEN [facility] Comment on above: Performed By: #### A 1C #### [facility] [address] [address] [address] Pam Granger eGFRon 11-01-2022 GFR/1.73 sq M.predicted among blacks MDRD (S/P/Bld) [Vol rate/Area] mL/min/{1.73_m2} Normal >=59 [facility] Comment on above: Order Comment: Order added by Discern Expert. Result Comment: eGFR is race adjusted. AA=. Performed By: #### 2 [id number], [id number], [id number], [id number] ####[facility] [address] [place] [address] GFR/1.73 sq M.predicted among non-blacks MDRD (S/P/Bld) [Vol rate/Area] mL/min/{1.73_m2} Normal >=59 [facility] Comment on above: Order Comment: Order added by Discern Expert. Result Comment: [employer] Traffic Systems Technician cydney kidney disease could be indicated at eGFR's of less than 60 mL/min/1.73m2. Kidney failure is indicated at less than 15 mL/min/1.73m2. Performed By: #### 2 [id number], [id number], [id number], [id number] ####[facility] [address] [place] [address] Physician Referralon 022 Physician Referral [id number] #1.00CD:127 Normal [facility] Coding Summary.on 09-26-2022 Coding Summary. CD:[id number] Gh0bWw+PGhlYWQ+PE1FV QOfV70qdNCexM3YP7tSL O4LGLNOFWTIRS8UYR3ql ZJ2BMmiO3SbmdPh XdqoaCUkDS04MKj7JQK6 yTnrBJhfsU6vcBFoP4x6 AsUtIY73nU32YQvvQUDc TzU0VnKwqtflrCCa Q0zfXmPipHZeXze+PHRh YmxlIHdpZHRoPScxMDAl RmOrfJtnBU9oCs1bWYAt LWNvbGxhcHNlOiBj r1ogYWNqUHetXD0neBon C7YjvSF4XVSbb0q2Pe39 dHI+CBSyOTX5xFprOZsw g706JlJgz8dyJZH5 qEWaTNbfURU0M08yg7N5 PJZxMBOzZXG9uQJ4iZ8v bRwgemuaM7UjnVOkAxA1 GCT5wPBpjE1noShp pyxqeU0mRfm+O52KPM7K OZDPFR5HEnf9G1DiUzdf dHI+RK35DTVbMO96qIXz fUUpq5xemCm0EgSb JXQxLMS3xNkkZNpwa1Ng NMKkV90hfXUgb2Y9TCXb iPbrpNAlDqAsuBF7hP4x JSeivpljq3jfkxut Igsue2cfnh11hW92L01e LAoqRRPvMIA7AJWuGEEp vEkwur0ckD8zOg0+IDxj m6chq5mlpGx5NxSx SONawaRwwBsyZMK9v3Qv Kt01P3VcnNste7IpNbz8 dn92yQQfz0B7uTR1DPqc MSPsnE5cQMciAeQ4 DLAvBlWvwB66kMHtQDxj Ah3beEojeFemLS6oHYKb udcuWEZjjQ5dJZXlgMIu tZniAK3lVJXjefew g745DfXvOTZ1JVPgnWJf I7ZkeV2kVrMqTXTeIOJr P2PohYCcJImmJ290USwp PcR3GSPwpfTqW4Ec GIZokHwwCmP0s7V2Lv8I k1TmiepuFCP7YIgkMIJm EbTiMuGoPxD5G9OpIdq3 CDRevAxpJY4tC6Ke VVXdkvirqkxybUC6NCZb ITLdtS91yLEgWYfgHz5p v9B9i481SLLmLLEktT11 Ns8jhIteWEKriHGG rV6uparto2uoouukJpSy TQLrHNh1ANi9YGOxdUks MtJxKHN3KwE9ZXB5eJEm cJ8llGwowujdfE8v Oyc+I69ehR7iFVX8SWJ2 lhvaUNRdnxXmHX42OO39 L4LqIbhjoHEsyOH+PGRp lqAumIuxUR7tNmOm e1bwp7FtVPvuT4GsNGPo HSliHik7SXCdMMP5oNU0 fD0aTNFdADpzx3O5bQL2 Y7GjcaOpad2rx0oc XUCtGRarH41rlXEoi7S2 LSLsaOY4BYGggFogQeDi wE82Rze+QZQzbYldh8Yo Wjtta1zsw9cdpMc0 IjMwJSIgdmFsaWduPSJ0 t0HaUf99N49xVAvtXITz XAKdZRMzIJAsnGvnkt5w yD1iBs9+PGNvbCB3 kGJ9vU2hFMOcOhL3XKza I916VzKzeIPaHmbdq7ph d0ruqZi1SoUeSOVjsqKy nNhtMQS7o0HdBv31 Z10eBUsiVAIhQDCeCKLq STIgxSyrmh3puK2vLq3+ QT3so2oupj48tX19uTD+ GSMcMWQ2nZigTTds YUMvhY4lELcrDvX2ZUQq XcCswZ53gWLhDCjdEy2i kTzipNyqNN8hYXGvdkak p441KgNay5tbGOSp sMIrNZrxAYM0Z26ej2F1 JMSsVVJtEWI3jAR1oW4e bGlnbjogbGVmdDsgdmVy cHhoTEouJNelJ584 IHRvcDsnPlBhdGllbnQg OnGtECe5K6VwLwy6NMJe wYoqMG6caKCqBPlxAg1q hKfqiBhbWC9jMPIc lerhz451WsWvw1uyZMYq tIPzPRejKCO9B46gb6D7 MOCuYSNqGAH2oIQ7rN0r bGlnbjogbGVmdDsg pzSszIxiJXemKCakY304 IHRvcDsnPkJpcnRoIERh vBM8HO07MN17bHRqb9Z5 lMM5L6RxLHInogds pedmxLH3BETbXTAbdA32 Ju5tbYmgJs4sHLKbMVP1 DHLnxOUuG1DgrH9kKmPr QLSnDQNzP2KwdJTn NLyxC009YTlyBgI0TLEk bgOgN8XcTUAzlVdaGaO0 l1R5Dg8NK8Z7KA23CY53 vMBkj7Q8lSV6N1Om CUTtlfrmzgxxzJF0JKXc DUEwvF50Nv5vnJjuDa4n XBMuNKV6FIRgdMYpZ2Nb rJ4cXgSgHQLvUHTs D3KbiNIiJPmzI762HUxl WhJ3JQMxpdGlC6CbCKTk pSkuRmX6b1C2Rz3XFBy1 CY69UA84iWEub5H9 eAM3Q0PuPBPimanfxias iSH5QLBuLQSnfV92Cb0x dAxlQk6oQGKdQJK5JLIx qATjA7ImoW1vTtEm NMQvIUHxG7ZetOGrCOib Q434TBccDgV9MFPiuqTk V3GnXPNlgYjhBgS6m3I8 Oa5LXLReLC32FCM2 hHB9ZI55GR83F4JkOqkx dGFibGU+PHRhYmxlIHdp ZHRoPScxMDAlJyBzdHls RE3eCo9eOYWrCBNk kLsflGUnRyJum9yfJWIo QYkuSB6vvCsqX0YoyLZ7 JWEra9d0Yj45J02pJ7Nb dXA+FKLtiQM0vYG6 vZ7fNxVmVbV3UFluZ452 FuLrsVJhAloqe1unz6dh hMs3OjO6OUAjdjGpjGhz SNJ2a3JzFa02Q71s IHdpZHRoPSIxNSUiIHZh kHexjm4jxO9cTf5+PGNv bIC7rYG4eQ6zTaPvKkI3 XHpzM396HkJhqEXq Javkl5tdg3occZe2JbNi IZRgqlEmeMroSFS4o9Wm Wp92U1WykFdxw3VuMya3 ow72nRWgh3J7uXU9 R4BsARVehykmpELvxXnb UV5tMAOdodlmRHGrbL3e DLOnW5y0XxAfOcR6DPij H8AsvwJ9GEWjhYDd NMkjVWW1X75tk5C0NSQi GPZtTYV0sFI4cC7ziSwg bjogbGVmdDsgdmVydGlj CGimZVhkN737DQXf bGxrBZXemT2yOWWboCYy xDgdXE7uJRXlngcdLxdO EX9XEZZOWIbLHMVIGJW3 C4SfLve4ISFtdMek LY2zuKDqAWbsGc2oyYde rLobYI5tXYFbqxzfVDGa nP2jDAScrJEvxBloJZ7t JDDtonmcv553SrTg UZD3GMKzfVAqR3KcaX3z HxTsBMZnTJPsG4JptSHf IUmfI489EUcbVdP4TBNt tlLzJ2KhFTLmvWzu FvY4h5K6Yr4jNM6xCW2n JEhaXX66TW75kNGev2O7 sLJ6G9HrXULoqsylegbl tDY0SVMoJWOjvV74 hKVeNZqqUl8tx7B1o231 IRLvBBVwrF54Cn8rvJug JQFnrRUFnY1mbieed3ch cjogIzAwMDAwMDt0 XAt3CUBgeOdqQcZfHPS1 NiW7SJK4eNOcoZ0syRld alyerE1tBqd+NDkgWWVh oqL8S8AqDgb6VBNe hVvnKB0lcFJwHKuvPu9l nCcymPnmXM5cGIEgirgk SEQmlG5cOMRbqCDdhVtn VG4vPCIxeeuny398 FbDzONT9WJMcuVPnH7Gj mW9zNcQpLKBnZAPuE1Pc uFLqAJotR139AUtfFbM5 IFJokiImH2DzGGEe jQcaKdW2p0R3Hg9BYSzi AF67TE86pSGvg8C5oNS3 E1CbYCLddueknyfgdUJ7 PPMyMYPdeR44bXBp POvxPc9dr4X9d640JZOq APEmyS59Ni5yzLcaQJCy aCQVaB5uiipth1phhmpi MrEgKKMhMUl5GLv1 BVHmtLxwPsZjGLJ4ZvC2 SLG4kBUddK2sgTmboimk vM4iGmg+D5P9bMP7lFXw dDwvdGQ+ZS32fn30 R7KyQuaiCdy8PJDrPNU1 nRX5zE3eMWLtBMfyw5F6 wED1B1JpfdLnms4lo7to YPYmHUvmT54feRMp o9T4OIDbvZS1HIKehIir UmFcsS44Wkh+PGNvbGdy i9CyYzyae4wmg6yhdLg5 IjMwJSIgdmFsaWdu SDZ5i2XfYw45R85iCMqz ZHRoPSIzMCUiIHZhbGln ik8vqW8tPs8+PGNvbCB3 gOS5rP2qOnRuFjO9 YZlgG593AtMdhFSlFkfn c7cnx1mgxWx6HzKsRVQs qdEwyAfuNYF9y4HwTe47 X6IpuNztt8SpCgs2 yu20rSGzi4L6zNN9A1Kl BHMpwgyyjZSzfBmhKJ1w XKMeaatqDSQhyX4cYEAj W3u7XbLqUjT2AEal U1ReowX6OTEpvDEhDRJf hMCHxG0wnloen5oiwcis ShOsYCKpQMk9KHt5ZTQt bSqiNsWsROS6IhJ1 MSA5lWYisZ9ngKtrkgvn mM0qGkl+OFp7s5tdxYQy YD3fsAQ8NR55AB89kTYj d3N8zEX2B3NaQQBu bjujzitjuPI5UYDjSCQp jY05Ne2rfYlsRx1rLZDe BVN3GQHsrPRqF4TlgD0p GlToVBBfKNRdP1Fn jUJqMLvwP060FXnwExN0 FJVoshYqB6GfPADykYyo CbU3v4D2Pd0TAW90MT81 HI86gWJav5B2uPB0 F8FtQCIxnustcggjoCY8 QUGqSDTpgG84Dv7rmWxk Ur4iBUKtQUT2XECfnJUn J4DksJ5wIlTuCJQh GBNmQ2KzeTFcHBijI661 EAnxWsP8NTSkpiIeL9Es VDXxiLemRpR7p6L3Vm1K Nk49HG31RX19kLEt s6B0cOS0M7StCAXpgcqj awfhrYI8ZPBhXKOuqZ29 Ha6egGczMm8eLJVdMVA9 ZYHyvDSoC2BupB9n KiGoOCAzKFLiC0NwfHHx KCuvX099LHaoHmD8XQDq kqQkB4AdPQZqjKzzLtJ2 n2G3Bh7AMWyyvhw8 S9QgMsttpIP+PA30FRPs VU94rOFioWNah9epwAj6 RqVcIWOaAFM2qUeyNKsl z7VhSHAkO64clXNx c2U6 (more content not included)... Normal [facility] CT Maxillofacial w/o Anahi sol 09-20-2022 CT Maxillofacial w/o Contrast Exam Date/Time: 09/20/2022 08:52 EDT Reason for Exam: J32.4 Chronic pansinusitis Report IMPRESSION: THE FINDINGS ARE SIMILAR TO THE PREVIOUS EXAMINATION. THERE IS EVIDENCE OF EXTENSIVE SINUS SURGERY WITH BILATERAL UNCINECTOMIES AND ETHMOIDECTOMIES AND RESECTION OF THE ANTERIOR PORTIONS OF SPHENOID SINUSES. THERE ARE VERY SMALL WITH A RETENTION CYSTS VERSUS POLYPS IN THE FLOOR OF THE BILATERAL MAXILLARY SINUSES. STATUS POST WALL UP RIGHT MASTOIDECTOMY. EXAM: CT Maxillofacial w/o Contrast DATE: 09/20/2022 8:41 AM CLINICAL HISTORY: J32.4 Chronic pansinusitis. COMPARISON: Sinus CT from 8 60 TECHNIQUE: Multiple images axial images were obtained without contrast administration. 3-D sagittal and coronal reconstructions were performed. All CT scans at this facility use dose modulation, iterative reconstruction, and/or weight based dosing when appropriate to reduce radiation dose to as low as reasonably achievable. FINDINGS: The visualized intracranial portions demonstrate a lacunar infarct in the right basal ganglia which has been present since the prior study. The orbits demonstrate no intra or extraconal lesions, the globes are intact. There is no fracture or subluxation. There are no lytic or sclerotic bone lesions. The frontal sinuses are well aerated. Status post bilateral ethmoidectomies, unchanged since the prior study. Status post resection of the anterior hoyt of the sphenoid sinuses, similar to the prior study. There are small, 6 mm or less which is retention cysts versus polyps in the floor of the right and left maxillary sinuses. Report Status post bilateral uncinectomies. The nasal cavities are within normal limits. There is no deviation of the nasal septum. Status post right mastoidectomy, unchanged since the previous study. The left mastoid air cells are hypoplastic but aerated The soft tissues are within normal limits. FINAL REPORT Dictated: 09/20/2022 3:47 pm Ryan Mcmullen MD, V. Signed (Electronic Signature): 09/20/2022 3:47 pm Signed by: Ryan Mcmullen MD, V. Transcribed by: GARCIA Technologist: Justa KOEHLER [facility] Consent for Treatmenton 08-26 Consent for Treatment [id number] #1.00CD:127 Normal [facility] Physician Orderon 09-14-2022 Physician Order [id number] #1.00CD:127 Normal [facility] COVID-19, Rapidon 06-25-2022 SARS-CoV-2 (COVID-19) RNA SHANEKA+probe Ql (Unsp spec) Not detected Not Detected [facility] Comment on above: Rapid NAAT: The specimen is NEGATIVE for SARS-CoV-2, the novel coronavirus associated with COVID-19. The ID NOW COVID-19 assay is designed to detect the virus that causes COVID-19 in patients with signs and symptoms of infection who are suspected of COVID-19. An individual without symptoms of COVID-19 and who is not shedding SARS-CoV-2 virus would expect to have a negative (not detected) result in this assay. Negative results should be treated as presumptive and, if inconsistent with clinical signs and symptoms or necessary for patient management, should be tested with an alternative molecular assay. Negative results do not preclude SARS-CoV-2 infection and should not be used as the sole basis for patient management decisions. Fact sheet for Healthcare Providers: https://www.fda.gov/media/027957/download Fact sheet for Patients: https://www.fda.gov/media/022195/download Methodology: Isothermal Nucleic Acid Amplification Specimen Description .NASOPHARYNGEAL SWAB [facility] XR CHEST PORTABLEon 06-25-20 No acute abnormality. [facility] CONSOLIDATED EXAMINATION: ONE XRAY VIEW OF THE CHEST 06/25/2022 9:24 am COMPARISON: 05/16/2022 HISTORY: ORDERING SYSTEM PROVIDED HISTORY: cough TECHNOLOGIST PROVIDED HISTORY: cough FINDINGS: Lungs are grossly clear with some similar mild linear scarring in the periphery of the left mid lung. No pneumothorax or pleural effusion. Mild eventration of the right hemidiaphragm. Cardiomediastinal contours are within normal limits. No acute bony findings. [facility]IS CONSOLIDATED Felecia Pelletier, DO - 06/25/2022 EXAMINATION: ONE XRAY VIEW OF THE CHEST 06/25/2022 9:24 am COMPARISON: 05/16/2022 HISTORY: ORDERING SYSTEM PROVIDED HISTORY: cough TECHNOLOGIST PROVIDED HISTORY: cough FINDINGS: Lungs are grossly clear with some similar mild linear scarring in the periphery of the left mid lung. No pneumothorax or pleural effusion. Mild eventration of the right hemidiaphragm. Cardiomediastinal contours are within normal limits. No acute bony findings. IMPRESSION: No acute abnormality. [employer] Work Phone: Radiology Study observation (narrative) [employer] Work Phone: XR CHEST PORTABLEOrdered By: Felecia Pelletier on 06-25-2022 [facility] Work Phone: GLYCOHEMOGLOBIN A1Con 2021 ADA RECOMMENDATION SEE BELOW Normal [facility] Comment on above: Result Comment: ADA RECOMMENDED LIMIT 4.0 - 6.0 ADA THERAPEUTIC TARGET < 7.0 ACTION SUGGESTED > 7.0 Performed By: #### A 1C #### [facility] [address] [address] [address] Pam Granger Glucose [Mass/Vol] 192 mg/dL Normal [facility] Comment on above: Performed By: #### A 1C #### [facility] [address] [address] [address] Pam Granger HbA1c (Bld) [Mass fraction] 8.3 % Critically high 4.5-6.2 [facility] Comment on above: Performed By: #### A 1C #### [facility] [address] [address] [address] Pam Granger Acetaminophen Levelon 2021 Acetaminophen Level <5 Low 10 - 30 ug/mL [facility] VeriShow Interpretation and review of laboratory results Abnormal [facility] CBC with Auto Differentialon 05-16-2022 Absolute Eos # 0.09 [place] [facility] Absolute Immature Granulocyte 0.03 [facility] Absolute Lymph # 2.11 [facility] [employer] Absolute [place] # 0.79 [facility] RS [employer] Basophils (Bld) [#/Vol] 0.06 10*3/uL [facility] Basophils/100 WBC (Bld) 1 % 0 - 2 % [facility] Eosinophils/100 WBC (Bld) 1 % 1 - 4 % [facility] Hematocrit (Bld) [Volume fraction] 40.9 % 40.7 - 50.3 % [facility] Hemoglobin (Bld) [Mass/Vol] 14.2 g/dL 13.0 - 17.0 g/dL [facility] Immature granulocytes/100 WBC (Bld) 1 % High 0 [facility] Interpretation and review of laboratory results Abnormal [facility] Lymphocytes/100 WBC (Bld) 33 % 24 - 43 % [facility] MCH (RBC) [Entitic mass] 31.6 pg 25.2 - 33.5 pg [facility] MCHC (RBC) [Mass/Vol] 34.7 g/dL 28.4 - 34.8 g/dL [facility] MCV (RBC) [Entitic vol] 91.1 fL 82.6 - 102.9 fL [facility] Monocytes/100 WBC (Bld) 12 % 3 - 12 % [facility] NRBC Automated 0.0 0.0 per 100 WBC [facility] Platelet distribution width (Bld) [Ratio] 12.2 % 11.8 - 14.4 % [facility] Platelet mean volume (Bld) [Entitic vol] 9.7 fL 8.1 - 13.5 fL [facility] Platelets (Bld) [#/Vol] 234 10*3/uL [facility] RBC (Bld) [#/Vol] 4.49 10*6/uL 4.21 - 5.7 7 m/uL [facility] Segmented neutrophils/100 WBC (Bld) 52 % 36 - 65 % [facility] Segs Absolute 3.35 [facility] WBC (Bld) [#/Vol] 6.4 10*3/uL [facility] COVID-19, Rapidon 05-16-2022 Interpretation and review of laboratory results Abnormal [facility] SARS-CoV-2 (COVID-19) RNA SHANEKA+probe Ql (Unsp spec) Detected Abnormal Not Detected [facility] Comment on above: Rapid NAAT: The specimen is POSITIVE for SARS-Cov-2, the novel coronavirus associated with COVID-19. This test has been authorized by the FDA under an Emergency Use Authorization (EUA) for use by authorized laboratories. The ID NOW COVID-19 assay is designed to detect the virus that causes COVID-19 in patients with signs and symptoms of infection who are suspected of COVID-19. An individual without symptoms of COVID-19 and who is not shedding SARS-CoV-2 virus would expect to have a negative (not detected) result in this assay. Fact sheet for Healthcare Providers: https://www.fda.gov/media/392612/download Fact sheet for Patients: https://www.fda.gov/media/249424/download Methodology: Isothermal Nucleic Acid Amplification Results reported to the appropriate Health Department Specimen Description .NASOPHARYNGEAL SWAB [facility] Comprehensive Metabolic Pane ajay 05-16-2022 Albumin [Mass/Vol] 4.7 g/dL 3.5 - 5.2 g/dL [facility] Albumin/Globulin [Mass ratio] 2.0 {ratio} [facility] ALP (Bld) [Catalytic activity/Vol] 65 U/L 40 - 129 U/L [facility] ALT [Catalytic activity/Vol] 12 U/L 5 - 41 U/L [facility] Anion gap [Moles/Vol] 14 mmol/L 9 - 17 mmol/L [facility] AST [Catalytic activity/Vol] 11 U/L <40 [facility] Bilirubin [Mass/Vol] 0.22 mg/dL Low 0.3 - 1.2 mg/dL [facility] Calcium [Mass/Vol] 10.1 mg/dL 8.6 - 10. 4 mg/dL [facility] Chloride [Moles/Vol] 101 mmol/L 98 - 107 mmol/L [facility] CO2 [Moles/Vol] 23 mmol/L 20 - 31 mmol/L [facility] Creatinine [Mass/Vol] 0.57 mg/dL Low 0.70 - 1.20 mg/dL [facility] Free PSA/Total PSA [Mass fraction] 7.0 g/dL 6.4 - 8.3 g/dL [employer] GFR >60 >60 mL/min [employer] GFR Non- >60 >60 mL/min [employer] Glucose [Mass/Vol] 203 mg/dL High 70 - 99 mg/dL [employer] Potassium [Moles/Vol] 4.4 mmol/L 3.7 - 5.3 mmol/L [employer] Sodium [Moles/Vol] 138 mmol/L 135 - 144 mmol/L [employer] Urea nitrogen (BldV) [Mass/Vol] 12 mg/dL 6 - 20 mg/dL [employer] Urea nitrogen/Creatinine (Bld) [Mass ratio] 21 High [employer] EKG 12 LeadOrdered By: Zheng Anderson on 05-16-2022 Atrial Rate 92 BPM [employer] Work Phone: P [place] 67 degrees [employer] Work Phone: P-R Interval 170 ms [employer] Work Phone: Q-T Interval 354 ms [employer] Work Phone: QRS Duration 90 ms [employer] Work Phone: QTc Calculation (Bazett) 437 ms [employer] Work Phone: R [place] 73 degrees [employer] Work Phone: T [place] 85 degrees [employer] Work Phone: Ventricular Rate 92 BPM [facility]ON [email or web address] Work Phone: [employer] Work Phone: EKG 12 Leadon 05-16-2022 Normal sinus rhythm Possible Left atrial enlargement Borderline ECG When compared with ECG of 23-NOV-2021 09:40, Nonspecific T wave abnormality no longer evident in Inferior leads Confirmed by COCO ANDERSON ([id number]) on 05/16/2022 7:06:44 PM [facility] RADIOLOGY Coco Anderson MD - 05/16/2022 Normal sinus rhythm Possible Left atrial enlargement Borderline ECG When compared with ECG of 23-NOV-2021 09:40, Nonspecific T wave abnormality no longer evident in Inferior leads Confirmed by COCO ANDERSON ([id number]) on 05/16/2022 7:06:44 PM [facility] Work Phone: Ethanolon 05-16-2022 Ethanol [Mass/Vol] mg/dL <10 mg/dL [facility] Ethanol percent <0.010 <0.010 % [facility] Laboratory - Chemistry and C hemistry - challengeon 05-16-2022 GFR/1.73 sq M.predicted MDRD (S/P/Bld) [Vol rate/Area] [facility] Comment on above: Average GFR for 40-4 9 years old: 99 mL/min/1.73sq m Chronic Kidney Disease: <60 mL/min/1.73sq m Kidney failure: <15 mL/min/1.73sq m eGFR calculated using average adult body mass. Additional eGFR calculator available at: http://www.[employer].giftee/multiple_crcl_2012.htm Stage 1: Some kidney damage normal GFR Stage 2: Mild kidney damage GFR 60-89 Stage 3: Moderate kidney damage GFR 30-59 Stage 4: Severe kidney damage GFR 15-29 Stage 5: Severe kidney damage GFR <15 ESRD - chronic treatment by dialysis or transplant No Panel Informationon 05-16 Interpretation and review of laboratory results Abnormal [facility] Salicylateon 05-16-2022 Salicylate Lvl <1 Low 3 - 10 mg/dL [facility] Urine Drug Screenon 05-16-20 Amphetamine Screen, Ur Negative NEGATIVE [facility] Barbiturate Screen, Ur Negative NEGATIVE [facility] Benzodiazepine Screen, Urine Negative NEGATIVE [facility] Buprenorphine Urine Negative NEGATIVE [facility] Cannabinoid Scrn, Ur Negative NEGATIVE [facility] Cocaine Metabolite, Urine Negative NEGATIVE [facility] Methadone Screen, Urine Negative NEGATIVE [facility] Methamphetamine, Urine Negative NEGATIVE [facility] Foremost Opiates, Urine Negative NEGATIVE [place] [facility] Oxycodone Screen, Ur Negative NEGATIVE [facility] Foremost Phencyclidine, Urine Negative NEGATIVE [facility] Foremost Propoxyphene, Urine Negative NEGATIVE [facility] Lucio [facility] Tricyclic Antidepressants, Urine Negative NEGATIVE [facility] Foremost Comment on above: Drug screen results are to be used for medical purposes only. All positive results are unconfirmed. Testing for employment or legal uses should be sent to a reference laboratory for confirmation. [facility] VeriShow XR CHEST 1 VIEWon 05-16-2022 No acute airspace disease identified. [facility] CONSOLIDATED EXAMINATION: ONE XRAY VIEW OF THE CHEST 05/16/2022 6:40 pm COMPARISON: None. HISTORY: ORDERING SYSTEM PROVIDED HISTORY: covid TECHNOLOGIST PROVIDED HISTORY: covid FINDINGS: Shallow inflation. The cardiomediastinal silhouette is within normal limits. There is no consolidation, pneumothorax or evidence for edema. No evidence for effusion. No acute osseous abnormality is identified. [facility] CONSOL[facility] Ziyad Murrell MD - 05/16/2022 EXAMINATION: ONE XRAY VIEW OF THE CHEST 05/16/2022 6:40 pm COMPARISON: None. HISTORY: ORDERING SYSTEM PROVIDED HISTORY: covid TECHNOLOGIST PROVIDED HISTORY: covid FINDINGS: Shallow inflation. The cardiomediastinal silhouette is within normal limits. There is no consolidation, pneumothorax or evidence for edema. No evidence for effusion. No acute osseous abnormality is identified. IMPRESSION: No acute airspace disease identified. [employer] Phone: Radiology Study observation (narrative) [employer] Phone: XR CHEST 1 VIEWOrdered By: Jose Alfredo Murrell on 05-16-2022 [facility] Phone: Physician Orderon 02-13-2022 Physician Order [id number]#1.00CD:127 Normal [facility] IntraOperative Documentson 0 02-01-2022 IntraOperative Documents [id number]#1.00CD:127 Normal [facility] Coding Summary.on 01-31-2022 Coding Summary. CD:[id number] Gh0bWw+PGhlYWQ+PE1FV MCeQ07hdQQftF4NF9eIO E5BERGZOEFJRY3PFE8mr KM1ZAriC5FohsMd WzbnkXGdJU53LQn6NEN4 sUzqLBhhqO2omYVmO9h7 OhTrJD89fR28AYgaNNHh WiI3JqJtqevhlFEx H7rdDcMosCYfCgs+PHRh YmxlIHdpZHRoPScxMDAl KePwtBdzEM6kBr3oVHBt LWNvbGxhcHNlOiBj x9ckPUOmVWnhKD8efMju F9IgmOG1KMEvp2l6Nq52 dHI+NSQeVXH1tMztTTrq x840EaAsp5mfXZL1 vHWoXMfzALB0N41vz9Z5 DQNbGYOjLBI7bLZ2gG0p zLjgzuzgX9KxtGJoIbN8 HMP0dBZznN3bvKdl xsmfyR6oDkj+R11BFX9T YNTXWR9SZfb1T5MmNwlw dHI+HT83PHIzKI59vCJh tCPrv3bxzCs9XtNy EDDhQAO2jHfgVRyrh5Xs NYBrV36kzCMtm0L5BWNm wAeqiGZyOvZrlGA2pF4b DHaaesrog1ggjtob Ovstr1ajos00zF51O54j QTjrVXBrSVT3HGQpZJEy zUvnii2qgU5eZp5+IDxj r7nzf8iuzMn6GaPd XQIdiqSinDbfWUK8s3Jm Wx12R3FnmZwhe4UsAke1 pv57nEXag3Z4yTL0GVhv DLSbqZ7kNKtpKcC0 XHTxPzLbfN70iFUkURbc Fx3ryYymaKzdAU8hWHDs zbiaJCYomX9iLPGbeCNi fSpkJD8jDTNnlgky b856IzEtVFK0ZJPsmUIv T8HwdM0pExRbAZEsBSOv V1WblNJrFJdjX316FBfu MyE1EYBaqdPhO1Kq KYBjkNxvJgC4p8Z7Yj1T n4XrvzhmUMC1UFyrQIHc ThU9OuTjOeC7L1NrBqf2 RUPykXlbXY2mV1Hv KWEabmjbawlyvMV7EQZj UNZopV72wSSvSQyfDm1z f8N4v380MHVjVBCwgZ84 Vo2wvWbsFJSqlCQR hS4oggoxm8tlkidqMuQj YGNvVQw4AUp5ONRjwZos QuNsAHE2YsS3DUL5xNDg bD9urKnirmonhD2u Oyc+F72ytC9oFYY2AQZ5 basgXJWvfvPuPP91FX02 G6NhCyjckBPtoFI+PGRp keGdhNhaQC0rOkTo f7bgy9WsWPioR9EnDMDa AOymCyi2HQTlCFB1iNL4 sJ2kNBQbWEggp2S9yED2 I2UqdcVfvl5rd8az EVEcNPjkQ01jeYAxg8O7 KNKrwGO2BITywHvaFqOu dM92Ulh+YNXznRrjm1Rd Cekbo3ljx0etxKj3 IjMwJSIgdmFsaWduPSJ0 d1XfLm89S84nANuzWWZq YAAaBAZrSWPlbWnigr6j aA1jVc4+PGNvbCB3 nOV5oP8fPSJmQmO7FIts I858PjNxnIFeZfcwk1jg k7uhrLn8BcVxBMPvhpIb qGzhTLR6a4EbXg77 O27sEEpwGHVkNGZoIWQt SNBdaHikzp1mnU5eZc4+ NO2uc4epuq77kC67eLQ+ QSJbBVL2vQipZDgo AXNlnW9dEQwpZeG6OYTz ViVitP36lQYnIZpwYk3x qHxtkMhdPW6qQFSbqxpw l757CjVyv7kwZGWp hKSyLIlgHRN9I15ue3Z3 HEJjYZZdYPJ6cIY8fP5g bGlnbjogbGVmdDsgdmVy yUdeYZguVZkfF305 IHRvcDsnPlBhdGllbnQg MyVuBGu5M8XuFvz6XZIh qBpmUN2ecSOaAPtwZn8q zDtajCjxKK6bKQHp lyzcp993XnFqi5scERHz aUKnVZpuHBW9A59hz2J6 SRTmWUDjHNG9pJZ6sR5s bGlnbjogbGVmdDsg tbBmqWjuGGhiOApfA234 IHRvcDsnPkJpcnRoIERh uGW4JA81TS32gOZvx2M0 cOM7Y7UsOXYpvhsf cdkxaXD8VIFeLWLfvE52 Kp4xlRbqRs2tSAAyTGD5 AYJfuTEpI2DylA3eByFy ZNUkTHTkH2HrcATj CPacF552BNdcHhT0WSRq yaAyC1EqAGGczOxiLjA5 j8Y1Fc7FC4P6RK26CO01 tESow6A1zJA6C4Hb YHRrqkviybldvKY1DBZn HFCyxD99Ne5hbHhpXt4h ROLrDSV1SFLbpGChM0Tl vR6lKoYgRKLsJKZk K0TsmXSrAXckH739QUut FjM0BDRfvuJwL9MkCUSz dHjePsJ9v1E7Rf3RUIe6 YH35QG31kLRqn2D5 kHF5O1LqJEWyqrosqgcq mHK1CUOyAYPquP93Ny8u vHfsQs4cRCJmFEW7UIFf cGFcQ8VowQ2hYaEm QTZzINHfG0XazSQtGWwp V179MDsiExE7BNAxnkOr H0QfCORlmNfpJtJ9u1T0 Nd0YPHWhPF35XPT2 jFB1LS00SU81X7LoSvlf dGFibGU+PHRhYmxlIHdp ZHRoPScxMDAlJyBzdHls IJ9xCx5xWUDrIKTi aGahqHOqMaSus7caVXEt PHdxHX5eeLlqU1HmqHI3 WZNdl8t0Lz04H69rI6Ct dXA+SVRrkVT4dNN4 vJ8xPrCdJgZ5XTqeY957 ZoMrmNXpCfqzh0lih1kq aOa9UxE8GICjslWubYnq OIR6q8CmPp37G54j IHdpZHRoPSIxNSUiIHZh kGdcbl6wjC2bDt5+PGNv qUY1zIL7qP1wNuDiPzI5 EChgN771IsXleOCa Lsncn7scy4exrBy9TtTd SYUxkcSpgUrcJZM7x8Df Bo69W7OzoClma6RtVoo3 wh72nBGdo4S0gRY3 E4ZpFIVnzrujzBFmrMje WG2lBDUdvkfkGHMguM6p KPWeC0t9QaHfRiD2MRbi F8TbcrT2JMRrmGWl JDwvDAE3C06yd9P6WYZm TQFhSBE7mAR1cF0jaYgj bjogbGVmdDsgdmVydGlj BBjdJMyvV010BWYu iTylQXEnhZ2xTDOkzVOz aJviJB4cRJTjpdjkMspG IX6IZLCMIXiBQUBKYVE3 M1LnSis0PHXzhYzg LW7omMJnRWxcAc9xwLws cXynIB9zCYExovcaAKCp rO9mNYTjjKBrdCwhOJ8c FSQfvavzw828SqAo GYX2OHZflMMwT4MejG8d WmPiNHFaAUZhM7IzyTOx TTscA472FJreOiM0KWAk clQbJ2OwYKXmkCrn EfC7f0P7Ua5kDI7zKL4q RBfuRN99ZJ61iABuf1W2 aLI9M9IpTCArknfaumhn nJV4VJYgJGSrqT57 tFYmHEgbXt4ix3C5r347 AGJgXDCzxO39Wn3kyAqi JUQzeCLEqR9pfgbyy1gf cjogIzAwMDAwMDt0 GBw8JCEplOcuKcJpYSB5 QyE2COV5jAYyjA9uiKzv iixpyF0aQso+NDggWWVh esG8M6MdJlm9BPIe nGocYC3bxDJdKGweRg2x qNobkFgvIE1yBLKyjalu ABRplV3nRXDrgFWzmUfn VW4rNXRyheigh253 DeWoQGC4RAVcnBYzQ7Ro jW4lLeWpOVOnMIDgK5Dk aLQzZAorN635CYbsNqW4 CSGuykYjV6SdPAXd sGofAgV4p1B1Mc3CQUvu LM66NC06sLDwp7S2xFL7 A3YaRZTqxdogbjrbpBQ2 VAInMEJkeD78hPYa LRhtPf4qf9L5k922OOHk KYZuxT45Yi3eaSjhJXOf mMGIpL4qormlu3ttllqv NoXeWSQtPQn0WEc7 MQOpzMstKtPuCRY9RbU4 UWX7eXXnuO8laEzntmuf bD2bRtj+N1A3fZH2yZXx dDwvdGQ+OD48uz78 M2CfMizdTba0UGOsWDR5 mCF1eN3yKKQnCYenj1S0 wJO1U9QibaZatl7lm4vr GCEgKWcwN66trHVk z3L3YEAxzTZ6YNPiqCuw BfToxT25And+PGNvbGdy i6XfPnmff5jkm3cjsOa8 IjMwJSIgdmFsaWdu VCQ1r9AnSy00F34xOHcs ZHRoPSIzMCUiIHZhbGln zb6wgP4iTx9+PGNvbCB3 aKI6sN0sLxPaTcR0 KVrkI632YqDfgALwFhrb d7vor3wquLk8PdUnDSAo jtIzvEtjLUZ8k4IsYi41 L7RnuFhyb9DiExv7 ux81dCPwb7O0hFX3J5Yz JBMzcwpueSCxzEzyRK1r CIHgsqbuLEYupY6xMSPd B2w0FaMaGzX8GPlv S4AfuxX2EYYruWQrSPBv aUEFnQ6lgcmuj1asbmho NlGjPHZqSEe4MGs1EZZu yKvxZoQjHSE8WgW8 WNF9zYAgaJ5raNtojroz kU2fKwn+BSz8c6ozrIDc PW4dgBH1VQ30JF03hKAh u8D8rMS0D5OuIMHj tfijqrdgxKN0YHCsPFVx yP52Wv3aeHubBq6uGBFb QPY0LDCcgPOmF2AkaH6d TiHuAKLkBGHlL0Rt gTHqXAkmH716YGjvNhB4 FWDufuMuG9LlOJKeeLkt NcD3z7B8Bb5FJJ56HF06 ZF12vUVpm9U0pFT8 M9ZxDMRsyrwwkacetZU5 EAScTHUpvY33Lv7vdWig Bt3qMQPcCJI2EGHilSFa I4CvfU6lAhMhZYMy RMEzO9KleNBoLIekW750 ESiaXcI4TQQomqFtN6De ZDEnaOieFcN8z3H1Cp2F Vw23HV03GZ82bCOn d8C2hPI6G1OxVWPiavhn nuixsAN3MHYxTQGcgY52 Sg9xxYirIq9nNYHsWAX0 TZZbuCYiB2ZgjT6x HcJpWKWeRFRzO0CsdMAh FRexN260HTuhWnU4UTIk sqWeU9RuRFNthWxxQgE1 r5Y9Qz5BCLflbuh6 L4OySsbdvDS+LD29BOFr NB10oQShpZMts8cgyFa1 LjPxLBDfZBM4kFfuMDds s7LgVOYfJ62eqNKu c2U6 (more content not included)... Normal [facility] US LE Venous Duplex Righton 01-27-2022 US LE Venous Duplex Right Exam Date/Time: 01/26/2022 18:54 EST Reason for Exam: Pain in unspecified lower leg Report IMPRESSION: NO EVIDENCE OF VENOUS THROMBOSIS INVOLVING VISUALIZED DEEP VEINS OF THE RIGHT LEG. CLINICAL HISTORY: Pain in unspecified lower leg. Pain and swelling right leg. COMMENT: On the right, the greater saphenous vein, common femoral vein, deep femoral vein, and popliteal vein demonstrate spontaneous phasic venous flow, with augmentation, non-pulsatility, and compressibility every 2 cm. There is flow and compressibility of the right femoral vein in the proximal and mid thigh, but the portion of the vein and distal thigh is not visualized. The right posterior tibial and peroneal veins of the deep venous system compress. The contralateral left common femoral vein demonstrates spontaneous phasic venous flow. FINAL REPORT Dictated: 01/27/2022 11:52 am Hari Pringle M.D. Signed (Electronic Signature): 01/27/2022 11:52 am Signed by: Hari Pringle M.D. Transcribed by: GARCIA Technologist: RAMON [facility] Consent for Treatmenton Consent for Treatment [id number] #1.00CD:127 [facility] Physician Orderon 01-26-2022 Physician Order [id number] #1.00CD:127 [facility] Coding Summary.on 01-25-2022 Coding Summary. CD:[id number] Gh0bWw+PGhlYWQ+PE1FV LMwP11btSHpbO1XH6jPB Y3ZYDUQSZHJOX1KZP1dd CS8SXuwM4KlftWx CglumTJuLY37MVk9RBL1 qFtbMZasbW0mrUFhJ2k9 QuUbYV95pI26VSekFXTl MwY7FgIrqzcpeOFv L3hoXvOenDWoLyi+PHRh YmxlIHdpZHRoPScxMDAl KoDewMbaJB1bIf9yPVPz LWNvbGxhcHNlOiBj l7upJVBxRLiqFL6xnUit O6IxeTJ3KXVfz8v8Na29 dHI+VAHhFDS4sEwoPVny h533OtGdv0reATB8 qKCvLDsuKFW8L41jq6A3 SQOfVJXhBND1hHF5aU3j rDcezpjoX5WpcHPgDgI5 VAJ2qXEaoR6hkFtv jjwrgC3iAbx+J71MZD2V WKRBKH5SSqg1N0IhGdxk dHI+VK94KKHxZH29xSNv vMXmw8noeYi2VrFt DPNoKAZ1lJqzCFata2Dq HFKoX20sfJNkq3Q9YYGx uTjojBEoGgHgiGU5sM0v SCnvyeivn3xiqxdi Fjxqe2ncwq27xC52L20v QXaxPRMqDLB1TCXiXXFy jVkqrn7cxJ4bWl2+IDxj u8btq7uopNc3QeTu GRXbrwZohXfiITS3f8Xe Yz06C9RmbYrgl9YoFsf0 ef51aFQmw7R1qVI3JKnm FBZwwD8ySVndEaN7 DLQiEvFzdA36lSPkYJdg Fr8ozTeynBgtME9sQCYa sledYPIeoP0wOZHutCEy eKwcIG4gMIJgmpbo t101NnIiHHC3UQYisFBn S9NwrQ1uQjUoYCCeSZIe C0NfwBMlBPjbU486MMyp AkZ2GVZtohOaY2Ka LUVxaYugYxA0u6U7Pt8B h0XldgmlOYL0WQfjGZJs OtEjKxEqHrI5Y7ReRnm6 TTMobBilVL0zH6Wb NHEqgujawajamFY3MWZz BSZteN19bSLgSXacYc1h a0S3b144DLJmTDRpaC62 Pj2wuDbkDJQztEYE cS7jmecfp0zvcypwVjSo UBKiCSn6RWv9MJIenNwc RbNfRLW4BvI3GHD5hXUe tW8ynGarttilhU3z Oyc+T76sbH3qSUV5EIG9 jzjjTVTnlnYnIE80TF34 N7FjIfejrFHnzOH+PGRp hvNktBjzQR1eVdAk w2qni9FvJFdnS1GpPMOo PHxoRbr7JJEtINH1yVC8 xX2xVLAjTAemm4D6xYX1 P0KjkjDijy2cn6tp KEZuHArjN19pyCBzy3J7 DEMxxMO1CUNrhPqhLrYo bH15Sww+YOUthMwaf1Oa Vbhdg2khf7njtUu0 IjMwJSIgdmFsaWduPSJ0 j8XgJd83I45iCGshIYBy PLOtKURvRWVboLijkc6m tD1aXg1+PGNvbCB3 iHC7zJ9wTCFmQmC0BIni Y035McNkeLUeOxjlm9sg m3xqnTv2CmTmWOMvfgSg eVacETR0w2TtUc85 M35uBIcqADEiIFYdVAPb EWJiwMfwcn6wcC1yLb6+ MZ9gx4eplk93jX65eCO+ AZAwFKP2ePcyCItq UXEeiW7cFBihOuU5KQUw LuRpfO61xCMbQBwiMg9c aDtuxEqrHH3kORLpnrpq u479EsHgp7foLPBn sVVkXWwiQDP7H69ea5C8 BRHaRPJfZFW4cZF6yL6e bGlnbjogbGVmdDsgdmVy xGkhXBbeGBmlK608 IHRvcDsnPlBhdGllbnQg SsZqQZi2M8VhTky4IEHq fQycMB6fgQApALanAc3q cAhobUbeCU8tRTLo vecuz706ZsCcl2ciSIOy bWXzBEspUPD2Q66oy1J0 PKOfIGZiIVN3bEC7aG0x bGlnbjogbGVmdDsg iiQunKhxADdoQJuvH368 IHRvcDsnPkJpcnRoIERh bAW5AF35FT52wYIuk7C6 vOF7I0YpSCFgljjy jhpztUD5WFHeRHSoeQ65 Ov3bsOtsGw7fLJUuMWY6 KJMckURmS6JodJ4kHbXk DFWcPYAtV3PzpKIq MSfqC868MAknCjL4AQZp eyHcY9KbQOZdbMmaHpI0 b4C0Hs6VE8Q2WI91CU65 jYDwx5H8iUU4O0Mf ZKZyexybunrnkBF5JFJf SPBtjT52Ni7asPupRa1q HNCxQBQ8SZTwuLHmF4Xm rJ3hHgNgWGXiBEUn H9RakRMsKNmoG127BAsx MaE3CBCfquGeA8TbMITw lEmmNsL6b4W9Xe9NKZa8 EF82UQ30eGFlx0K1 cJX9F6JeSWPmbmtxhkao sIP3LHAkTHPwtF52Rq7x qOppGe0aCYCxXAC2OWYh gYWxX1RkfR8rUhUn IFXdUZGhP8HgsJRcSZxp K141LHphSnE9ASPvseWp O2XnZFUmcVdnKjB2k0J6 Nk3HITKzCQ59TXB3 zAH0NA50WZ61E6OvWpul dGFibGU+PHRhYmxlIHdp ZHRoPScxMDAlJyBzdHls TG7lYc4gOGQyEWLt cLtgbGXlZjAju5xuKJPv QHvnWB5vkSejS5VhfQQ5 CMAmi3f1Sr37P29gW5Rq dXA+XBZkgCG9lAH4 fU9yZxEmRuZ1BKbyW030 ZqBwoKRzZmhsg4jjr3cw rSh1YyH8VSWeztRikZrg XBK4m9BxXh77J57z IHdpZHRoPSIxNSUiIHZh lNmhzi9yqU3sCc0+PGNv qVO0rLJ4jB0fPxXvEkZ9 JZwsQ059IfTldIGt Umewe6rpf9txqHd1QzCu DVFsghEkpXfpRZG6r5Jc Kn96M4VvcStrs1WwAbo1 zl06mHYem4I6aUX3 C8GmPETmkdeobVIafQao AL3vZFHcnjtxFSYcdC1t OZRnP0b3UpBqLyZ7YOxy R4DcryS9ZVLtuPUm YBaiJDG1G58nt6P9SHIx DZWxFNA3kAC0oG1efCyp bjogbGVmdDsgdmVydGlj DTrfNVsbH350CZMw sQtgBQUxoQ2vXNToaURh pBzmTX8oTDSwdbwgWtsL QW5FPWRPKSkEPPUCTBG4 O8YnZey9WFTeuDtt XP3ahQJpDHhcDl2slXzl cPldWO0xTSCkxypuHHNv wO0vPJSnzFQgjBthYZ3m RLAsvpfln858PoRs VIA7URYmeJOvQ4KphD2m QzXvUMVvWPIsX6UqeFHm TXtcF695HDziAaX7ACRh qhBgE6GsEGLnuVwv EgY2o0F0Oo2fRI2aKB8o WZwlTS18YN81uNHqg7G5 jIM3E5LxYKFrdriaisrj tHT0VGXiAIYckQ86 nCYlMOjmMc1nn9O6j910 QSXjFUJrxQ84Rz7maYbi XNSbrOVOrN3zyvhyd0wu cjogIzAwMDAwMDt0 ZJi3XCWtxDrjMjDjNOX5 PgN2ESS6kBRltJ4pdNbx fqefbN7dLck+NDggWWVh feL7W6XbPgi2AHEp sSxuNS8acWLtHZsgOs4a bIxunPbwID9yIHQwckaa PXAycD4xMGRvrLVawWgj NB2fBUQqvmirv882 SdDhYYW7AJQjxCWdD4Dv zV1bAkOfIWBkIGQbK9Ix gPRzEVosP223OCjkIxQ1 NWRozkIwO0RoISAb uMvaPeM5l8S5Mg3FZAtm YJ39XD65kYQvh3T0bEO2 K2QbDLJgktdoybrphRN1 HGGaHPNayC61wKWy WZauLz8ry3O7l099ZIWq RLXhyB36Li7afOjiQJHz pKKOzH9inllcs2mnbjdk ZqCgOLAeBNj2QIw1 FAOjuSmjQcErZVN0VlS5 WTI4yQVraI7vhGvzlxha wC5yBhk+TW3faXpvhD5c nG9FJP8wUWYyfWYP zRUtPYM7JL14PL60R8Rp PjwvdGFibGU+PHRhYmxl IHdpZHRoPScxMDAlJyBz mNavVS7xSy1gJCUy PBPzgMgerIMdEiZhq7oo ISTzQFfaDG9erDgzB8Mo kMR4AEKlg9v2Fz91V98t H7AgcJF+PGNvbCB3 zLI8kR4cNfXiFqB2UZuv W245UvJvnCFgRmphn1dg r7rfuXu3MwViDMVvzsLu rBfhGZW4y3DvLh64 Y60uFWrzUQQsITPfAMYw KBEzuRalgg9soO6rJm2+ LJLrwDE3gJP9rA7cJtQq CnS5UXzsN743YcIj jYNhQamzP87hF6PnzQU+ XLMePwy0XXLbiRkgYC3b yHGdRTvkQe8tUSH3QvMt VrHsTFscX9EqPFHl mutlaemvqJZ5NHSvCUZl wM74Sk5ocHwsLs6iHAGu STF2COOglUKoX0DtlZ7k CkMyWKRoPLMsY3Gx lLKoPPzwS496MProVuT8 MCPcdePyD9CoIKMdsNev HlE0h2P6Jf6ZhBtkoRYq BV7eIySnWJs3H9Gh Kkz0DDYagRbkBP1lwGTz ARyvUj1ihDtszPvaGJ1e TXAcoeaqk940GuWdr1pb IDEwcHQgVGltZXM7 O15jt9F2NMFcWZRmTNL6 vLJ9pE0goNdwlmtumWSr dDsgdmVydGljYWwtYWxp E530UTZgrTbbOzMW Dyg8K9UoEpd9IGVoqQvl QT2hlNUbIInoYh8xpSop iFhnTM6vELBhdaoij153 JbTlr5qsMGCbjVYz SThsGVG0I17xn7C9BSBr YEHzTZN9oOQ7mB0wvTev bjogbGVmdDsgdmVydGlj KXqkGUzvR125VNIw qFegZb3BOfx2X6LsMcw4 HWYwdZwxAU0ccAVdINge Vn5slPfnqWajUF1cLDPf sfsvz851GvSmf0uo ADSstQIuPPgfBQA4K00i n3S8RDNaMUSaSHX9dRF4 tT5rjIzsamqzrUDxaKuj dmVydGljYWwtYWxp Q885SBVcyXvnEmFwrZOt OjwvdGQ+RE77eh41R9Jm LyshJyf2VLCcRQL6yUM6 tQ8tQFDsHEsfl3L0 bGU9 (more content not included)... Normal [facility] Blood Bank Slipon 01-24-2022 Blood Bank Slip [id number] 0#1.00CD:127 Normal [facility] Consent for Anesthesiaon Consent for Anesthesia [id number] #1.00CD:127 Normal [facility] Discharge Instructionson Discharge Instructions [id number] #1.00CD:127 Normal [facility] IntraOperative Documentson 0 01-23-2022 IntraOperative Documents [id number] #1.00CD:127 Normal [facility] Preoperative Documentson Preoperative Documents [id number] #1.00CD:127 Normal [facility] Preoperative Documents [id number] #1.00CD:127 Normal [facility] Prescriptions/Work Noteson 0 01-23-2022 Prescriptions/Work Notes [id number] #1.00CD:127 Normal [facility] ABO/Rhon 01-22-2022 ABO/Rh Positive Invalid Interpretation Code [facility] Comment on above: Performed By: #### 1 [id number], [id number], [id number] ####[facility] [address] [place] [address] ABO/Rh History Checkon 01-22 ABO/Rh History Check Verified Hx Blood Type Normal [facility] Comment on above: Performed By: #### 1 [id number] ####[facility] [address] [place] [address] ABSCon 01-22-2022 ABSC Gel Interp Negative Normal [facility] Comment on above: Performed By: #### 1 [id number], [id number], [id number] ####[facility] [address] [place] [address] Blood Bank ID#on 01-22-2022 BBID# [id number] Invalid Interpretation Code [facility] Comment on above: Performed By: #### 1 [id number], [id number], [id number] ####[facility] [address] [place] [address] Capillary Glucose POCon 12-27 Glucose [Mass/Vol] 168 mg/dL High 55-99 [facility] Comment on above: Result Comment: Kala clara Meter Performed By: #### 2 [id number] ####[facility] [address] [place] [address] H&P Updateon 01-22-2022 H&P Update [id number]# 1.00CD:127 Normal [facility] Inpatient Patient Summaryon 01-22-2022 Inpatient Patient Summary [facility] [address], [place] [address] [facility] Clinical Discharge Instructions PERSON INFORMATION Name: HARI THORNTON PHYSICIANS Admitting Physician: Malina Ballard DO Attending Physician: Malina Ballard DO PCP: NARAYAN GAGNON DO Discharge Diagnosis: Localized osteoarthritis of right knee Comment: PATIENT EDUCATION INFORMATION Instructions: Post Op Patient Instructions - NICHOLE (CUSTOM); Isamar - Total Knee Arthroplasty (CUSTOM) Medication Leaflets: Follow up: With: Address: When: Malina Ballard [address] [id number] [facility] (1) Comments: Keep scheduled appointment MEDICATION LIST Medications to Continue with No Changes Printed Prescriptions aspirin (aspirin 325 mg Tab) 1 Tablets By Mouth every day for 30 Days. Refills: 0. sulfamethoxazole-tri methoprim (Bactrim D.S. 800 mg-160 mg Tab) 1 Tablets By Mouth 2 times a day for 7 Days. Refills: 0. Other Medications acetaminophen-oxycod one (Percocet 325 mg-5 mg Tab) 2 Tablets By Mouth every 4 hours as needed Pain 4-7. acetaminophen-oxycod one (Percocet 325 mg-5 mg Tab) 1 Tablets By Mouth every 4 hours as needed Pain 4-7. aspirin (aspirin 81 mg Chew Tab) 1 Tablets Chewed every day. clonazepam 1 Milligram By Mouth 2 times a day. divalproex sodium (divalproex sodium 500 mg ER Tab) 1 Tablets By Mouth 2 times a day. docusate (Colace 100 mg Cap) 1 Capsules By Mouth 2 times a day as needed for constipation. dulaglutide (Trulicity Pen 3 mg/0.5 mL subcutaneous solution) 3 Milligram Subcutaneous every week. glimepiride (glimepiride 2 mg Tab) 1 Tablets By Mouth every day. lisinopril (lisinopril 20 mg Tab) 1 Tablets By Mouth every day. metformin (metformin 500 mg oral tablet) 1 Tablets By Mouth 2 times a day. polycarbophil (Fiber Lax 625 mg oral tablet) 1 Tablets By Mouth every other day. pravastatin (pravastatin 20 mg Tab) 1 Tablets By Mouth once a day (at bedtime). primidone (primidone 50 mg Tab) 0.5 Tablets By Mouth once a day (at bedtime). tizanidine (tizanidine 4 mg oral capsule) 1 Capsules By Mouth at bedtime. tramadol (tramadol 50 mg oral tablet) 1 Tablets By Mouth 2 times a day as needed for pain. trazodone (traZODONE 100 mg Tab) 1 Tablets By Mouth once a day (at bedtime). verapamil (verapamil 180 mg Cap-ER) 1 Capsules By Mouth every day., high heart rate Comment: Normal [facility] Main OR Intraoperative Recor don 01-22-2022 Main OR Intraoperative Record IntraOp Document Type FT Summary Primary Physician: Malina Ballard DO Finalized Date/Time: 01/25/22 14:15:40 Pt. Name: HARI THORNTON/Sex: 1975 Male Med Rec #: [id number] Physician: Malina Ballard DO Financial #: [id number] Pt. Type: A Room/Bed: [facility] Admit/Disch: 01/22/22 05:52:56 - 01/22/22 17:55:00 Institution: Case Times FT Entry 1 Patient Times In Room 01/22/22 07:05:00 Out Room 01/22/22 08:34:00 Procedure Times Start 01/22/22 07:25:00 Stop 01/22/22 08:28:00 Anesthesia Times Start 01/22/22 07:05:00 Stop 01/22/22 08:34:00 Last Modified By: Nikolai RN, Janette 01/22/22 08:34:16 General Comments: 0655: Patient taken to block room by ROLF Breaux. Block completed by BRAIN Brown and ROLF Breaux assisting. Patient tolerated well with reassurance HR 105, SPO2 98%RA. Patient then taken back to OR after completion of block.-ROLF Martinez 01/25/22 Chart opened to review and send charges Chandni ENG Case Attendance FT Entry 1 Entry 2 Entry 3 Case Attendee Shai DE LA PAZ, Babatunde Ballard DO, Malina Aragon EXECUTIVE VICE PRESIDENT, Narayan Barragan Role Performed PROMOTIONS MANAGER Surgeon - Primary EXECUTIVE VICE PRESIDENT/SA Time In 01/22/22 07:05:00 01/22/22 07:13:00 01/22/22 07:05:00 Time Out 01/22/22 08:34:00 01/22/22 08:14:00 01/22/22 08:32:00 Procedure KNEE TOTAL KNEE TOTAL KNEE TOTAL ARTHROPLASTY(Left) ARTHROPLASTY(Left) ARTHROPLASTY(Left) Comments Dr. Alberto supervising Last Modified By: Nikolai RN, Janette 01/22/22 Nikolai RN, Janette 01/22/22 Nikolai RN, Janette 01/22/22 08:34:19 08:34:19 08:34:19 Entry 4 Entry 5 Entry 6 Case Attendee Sedrick SALGADO, Amee Rodriguez EXECUTIVE VICE PRESIDENT, Cas Menchaca RN, Janette Role Performed Scrub - Primary Staff - Other Fitness Professional - Primary Time In 01/22/22 07:05:00 01/22/22 07:05:00 01/22/22 07:05:00 Time Out 01/22/22 08:34:00 01/22/22 08:21:00 01/22/22 08:34:00 Procedure KNEE TOTAL KNEE TOTAL KNEE TOTAL ARTHROPLASTY(Left) ARTHROPLASTY(Left) ARTHROPLASTY(Left) Comments 2nd scrub Last Modified By: Nikolai RN, Janette 01/22/22 Nikolai RN, Janette 01/22/22 Nikolai RN, Janette 01/22/22 08:34:19 08:34:19 08:34:19 Entry 7 Entry 8 Case Attendee Sedrick SALGADO, Narayan Velazquez RN, Leandro Yeager Role Performed Staff - Other Staff - Other Time In 01/22/22 07:05:00 01/22/22 07:05:00 Time Out 01/22/22 07:21:00 01/22/22 07:21:00 Procedure KNEE TOTAL KNEE TOTAL ARTHROPLASTY(Left) ARTHROPLASTY(Left) Comments Last Modified By: Nikolai RN, Janette 01/22/22 Nikolai RN, Janette 01/22/22 08:34:19 08:34:19 General Comments: [facility].-ROLF Martinezfounder / ceo Protocols FT Pre-Care Text: Implements protective measures prior to operative or invasive procedure, confirms identity before the operative or invasive procedure, verifies operative procedure, surgical site, and laterality Entry 1 Procedure(s) KNEE TOTAL Patient Identity Birthday, ID Band ARTHROPLASTY(Left) Verified (select at Check, Patient least 2): Participation Consents / H and P Anesthesia Consent, Operative Site Present Verified HandP, Surgery/Procedure Marking Verified Consent, Transfusion Consent Surgical Site Yes Laterality Verified Yes Verified Procedure Verified Yes Correct Patient Yes Position Verified Availability Equipment, Implant, Prep Dry n/a Verified (If Medication Applicable) PreOp Antibiotic Yes Time Out Babatunde Gibbons CRNA, Given Participants Isamar SOTELO, Mahesh Honeycutt EXECUTIVE VICE PRESIDENT, Sedrick Casanova CST, Jennifer Tian CST, Nikolai Smyth RN, Sedrick Savage CST, Marcus Busch RN, Leandro Yeager Time Out Complete 01/22/22 07:14:00 Outcomes Met? Yes Last Modified By: Nikolai BANSAL, Janette 01/22/22 07:32:05 Post-Care Text: The patient is free from signs and symptoms of injury caused by extraneous objects Allergy Information FT Pre-Care Text: Verifies allergies Entry 1 Allergies Reviewed? Yes Allergies Reviewed Self/Patient With Outcomes Met? Yes Last Modified By: Janette Menchaca RN 01/22/22 07:33:07 Post-Care Text: The patient received appropriate medication(s) safely administered during the perioperative period Surgical Procedures FT Entry 1 Procedure Description Procedure KNEE TOTAL ARTHROPLASTY Modifiers Left Surgeon Description RIGHT KNEE TOTAL ARTHROPLASTY Primary Procedure Yes Primary Surgeon Malina Ballard DO Start 01/22/22 07:25:00 Stop 01/22/22 08:28:00 Anesthesia Type General Surgical Service Orthopedics Wound Class 1 - Clean Last Modified By: Janette Menchaca RN 01/22/22 08:34:25 General Case Data FT Pre-Care Text: Classifies surgical wound, implements aseptic technique, initiates traffic control Entry 1 Case Information OR OR 7 FT Case Level Level 6 Wound Class 1 - Clean Specialty Orthopedics ASA Class 3 Preop Diagnosis RIGHT KNEE OA Postop Same As Preop Yes Postop Diagnosis RIGHT KNEE OA Outcomes Met? Yes Last Modified By: Janette Menchaca RN 01/22/22 07:33:31 Post-Care Text: The patient is free from signs and symptoms of infection Skin Assessment (Pre Procedure) (more content not included)... Normal [facility] Main OR PACU I Recordon 12-27 Main OR PACU I Record PACU Phase I Document Type FT Summary Primary Physician: Malina Ballard DO Finalized Date/Time: 01/22/22 09:40:25 Pt. Name: HARI THORNTON/Sex: 1975 Male Med Rec #: [id number] Physician: Malina Ballard DO Financial #: [id number] Pt. Type: A Room/Bed: [facility]/ Admit/Disch: 01/22/22 05:52:56 - Institution: Case Times PACU I FT Pre-Care Text: Identifies barriers to communication and implements measures to provide psychological support Develops individualized plan of care, and ensures continuity of care Maintains patient's dignity and privacy, and maintains patient confidentiality Identifies and reports philosophical, cultural, and spiritual beliefs and values Identifies individual values and wishes concerning care Implements aseptic technique, and administers prescribed antibiotic therapy and immunizing agents as ordered Evaluates postoperative tissue perfusion Implements thermoregulation measures, and monitors body temperature Evaluates postoperative respiratory status Evaluates postoperative cardiac status Evaluates postoperative neurological status Assesses pain control, collaborated in initiating patient-controlled analgesia and implements alternative methods of pain control Verifies allergies, administers prescribed medications and solutions, evaluates response to medications Entry 1 In PACU I 01/22/22 08:35:00 Discharge from PACU 01/22/22 09:16:00 I Outcomes Met? Yes Last Modified By: Janna Hi RN 01/22/22 09:40:02 Post-Care Text: The patient demonstrates knowledge of the expected response to the operative or invasive procedure The patient's care is consistent with the individualized perioperative plan of care The patient's right to privacy is maintained The patient's value system, lifestyle, ethnicity, and culture are considered, respected, and incorporated into the perioperative plan of care The patient participates in decisions affecting his or her perioperative plan of care The patient is free from signs and symptoms of infection The patient has wound/tissue perfusion consistent with or improved from baseline levels established preoperatively The patient is at or returning to normothermia at the conclusion of the immediate postoperative period The patient's respiratory function is consistent with or improved from baseline levels established preoperatively The patient's cardiovascular status is consistent with or improved from baseline levels established preoperatively The patient's cardiovascular status is consistent with or improved from baseline levels established preoperatively The patient demonstrates and/or reports adequate pain control throughout the perioperative period The patient received appropriate medication(s), safely administered during the perioperative period Acuity Level PACU I FT Entry 1 Start Time 01/22/22 08:35:00 Stop Time 01/22/22 09:16:00 Acuity Level Acuity Level I Last Modified By: Janna Hi RN 01/22/22 09:40:18 Finalized By: Janna Hi RN Document Signatures Signed By: Janna Hi RN 01/22/22 09:40 Normal [facility] Main OR PACU II Recordon Main OR PACU II Record PACU Phase II Document Type FT Summary Primary Physician: Malina Ballard DO Finalized Date/Time: 01/22/22 19:01:52 Pt. Name: HARI THORNTON/Sex: 1975 Male Med Rec #: [id number] Physician: Malina Ballard DO Financial #: [id number] Pt. Type: A Room/Bed: [facility]/ Admit/Disch: 01/22/22 05:52:56 - Institution: Case Times PACU II FT Pre-Care Text: Identifies barriers to communication and implements measures to provide psychological support and determines knowledge level Develops individualized plan of care, and ensures continuity of care Maintains patient's dignity and privacy, and maintains patient confidentiality Identifies and reports philosophical, cultural, and spiritual beliefs and values Identifies individual values and wishes concerning care administers prescribed antibiotic therapy and immunizing agents as ordered, Evaluates postoperative tissue perfusion Implements thermoregulation measures, and monitors body temperature Evaluates postoperative respiratory status Evaluates postoperative cardiac status Evaluates postoperative neurological status Assesses pain control, collaborated in initiating patient-controlled analgesia and implements alternative methods of pain control Verifies allergies, administers prescribed medications and solutions, evaluates response to medications Entry 1 In PACU II 01/22/22 09:20:00 Discharge from PACU 01/22/22 17:55:00 II Outcomes Met? Yes Last Modified By: Connie Mosqueda RN 01/22/22 19:01:50 Post-Care Text: The patient demonstrates knowledge of the expected response to the operative or invasive procedure The patient's care is consistent with the individualized perioperative plan of care The patient's right to privacy is maintained The patient's value system, lifestyle, ethnicity, and culture are considered, respected, and incorporated into the perioperative plan of care The patient participates in decisions affecting his or her perioperative plan of care. The patient is free from signs and symptoms of infection The patient has wound/tissue perfusion consistent with or improved from baseline levels established preoperatively The patient is at or returning to normothermia at the conclusion of the immediate postoperative period The patient's respiratory function is consistent with or improved from baseline levels established preoperatively The patient's cardiovascular status is consistent with or improved from baseline levels established preoperatively The patient's neurological status is consistent with or improved from baseline levels established preoperatively The patient demonstrates and/or reports adequate pain control throughout the perioperative period The patient received appropriate medication(s), safely administered during the perioperative period Finalized By: Connie Mosqueda RN Document Signatures Signed By: Connie Mosqueda RN 01/22/22 19:01 Normal [facility] Main OR Preoperative Recordo n 01-22-2022 Main OR Preoperative Record PreOp Document Type FT Summary Primary Physician: Malina Ballard DO Finalized Date/Time: 01/22/22 07:28:30 Pt. Name: HARI THORNTON/Sex: 1975 Male Med Rec #: [id number] Physician: Malina Ballard DO Financial #: [id number] Pt. Type: A Room/Bed: [facility]/ Admit/Disch: 01/22/22 05:52:56 - Institution: Case Times PreOp FT Pre-Care Text: Verifies consent for planned procedure, identifies individual values and wishes concerning care, includes family members in perioperative teaching Entry 1 Patient Times. In Pre Surgery 01/22/22 05:50:00 Out Pre Surgery 01/22/22 06:53:00 Outcomes Met? 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 Please see office notes and history and physical. Site is marked preoperatively. All questions answered preoperatively. Antibiotics provided weight-based per protocol. He has tried Cortisone injections, viscosupplementation , physical therapy, bracing, Tylenol, anti-inflammatory. 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 Preoperative clearance is achieved. Bone on bone findings are present on x-ray. Site is marked preoperatively. All questions are answered preoperatively. PROCEDURE IN DETAIL: Jero is taken to the Operating Room and placed in the supine position. Anesthesia is provided. Well padded tourniquet is placed on the right upper thigh. The leg is prepped and draped in sterile fashion. Timeout procedure occurred consistent with the consent form, history and physical and preoperative marked site. Midline incision was made of 6 . Medial parapatellar arthrotomy was performed and the patella was everted. End-stage tricompartmental degenerative changes were noted. They were much more intense than his x-rays in particular of his trochlea and patella. Irrisept antibiotic solution was allowed to soak. Patella was appropriately cut and retracted. Intramedullary drill and jig device were placed in the femur and a 5 degree valgus cut taking off 11 mm was performed. This was sized at a #4. Intramedullary drill and jig device were placed in the tibia. Tibia was cut. Gaps were symmetrical. Posterior gutters were clean and free. Tibia was prepared for a #3 fixed tray. Trial components were placed with full extension, appropriate flexion and balance. Collateral ligaments were intact. 100 cc of Exparel was injected along the capsule and gutters per protocol. Irrisept antibiotic solution was allowed to soak multiple stages. Pulsed lavage irrigation was utilized for bone preparation and copious irrigation. [place] Simplex cement was mixed. All components were cemented in place and allowed to harden for 16 minutes. All cement osteophytes were removed. It was taken through arc of motion and deemed stable. 2 grams of Tranexamic acid is placed subfascially. Fascial layer is closed with #2 Quill suture in running fashion. 2-0 Quill suture closed the subcutaneous tissues and 2-0 Monoderm intracuticular suture is placed with liquid glue. 10 Mepilex dressing with soft roll wrap was provided. Tourniquet was deflated. The patient awakened from anesthesia and transferred to the Recovery Room in stable and satisfactory condition. CASE: Clean and elective SPONGE AND NEEDLE COUNT: Correct SPECIMEN: Bone PATIENT CONDITION: Satisfactory Too [place] Dictated: 01/22/2022 [id number] Transcribed: 01/22/2022 cc:Narayan Gagnon D.O. [facility] Comment on above: Result Comment: Elec tronically Signed By: Malina Ballard DO\.br\Date and Time Signed: 01/22/22 10:56 EST Operative Report SURGERY DATE: 01/22/2022 PREOPERATIVE DIAGNOSIS: Postoperative pain control requested by patient and surgeon POSTOPERATIVE DIAGNOSIS: Postoperative pain control requested by patient and surgeon OPERATION: Right adductor canal block utilizing ultrasound guidance ANESTHESIA: Local with monitored anesthesia care PROCEDURE: The patient was interviewed and examined. The anesthesia options were discussed including adductor canal block for postoperative analgesia. The discussion included the procedure, risks and benefits and alternatives to the procedure. The patient's questions were all answered and the patient elected to proceed with the adduction canal block for postoperative pain relief. The patient was placed on the monitors, electrocardiogram, noninvasive blood pressure machine and pulse oximetry. I.V. sedation was then administered with a total of 3 mg Versed. The mid thigh was prepped with ChloraPrep and sterilely draped. The anatomy was identified with ultrasound and then under ultrasound guidance, the femoral nerve was identified with a 21 gauge 100 mm needle. After attempted aspiration for blood, a solution of 0.5% ropivacaine 20 mL was slowly injected with frequent aspirations without signs or symptoms of intravascular injection. The patient tolerated the procedure well. There were signs and symptoms of a block within minutes after completion of the procedure. The patient then proceeded to undergo general anesthesia for the proposed procedure. Babatunde Gibbons CRNA ls Dictated: 01/22/2022 [id number] Transcribed: 01/22/2022 [facility] Comment on above: Result Comment: Elec tronically Signed By: Babatunde Gibbons CRNA\.br\Date and Time Signed: 01/22/22 10:13 EST Outpatient Surgery Discharge Instructionon 01-22-2022 Outpatient Surgery Discharge Instruction [address] [address] Patient Discharge Instructions PERSON INFORMATION Name: HARI THORNTON Date of : 1975 Current Date: 01/22/2022 14:44:41 PHYSICIANS Admitting Physician: Malina Ballard DO Discharge Diagnosis: Localized osteoarthritis of right knee HARI THORNTON has been given the following list of follow-up instructions, prescriptions, and patient education materials: PATIENT FOLLOW-UP INFORMATION Diet: Regular, Drink liquids and eat a light meal Discharge Activity: Ambulate as tolerated, Arrange for a responsible adult supervision for 24 hours, Expect mild pain, Expect minimal amount of drainage and/or bleeding, Do not lift more than 5 lbs Discharge Restrictions: No driving for 24 hrs, Do not operate machinery or tools, Do not make important decisions for 24 hours, Do not drink alcoholic beverages for 24 hours Call Your Doctor For: Persistent or heavy bleeding, Temperature above 101.5 degrees, Redness, swelling, or pus at operative site, Severe pain at the operative site, Persistent vomiting Wound Care Instructions: Remove dressing as instructed Remove Your Dressing In 10 Days IF UNABLE TO CONTACT YOUR PHYSICIAN AND YOU FEEL IT IS AN EMERGENCY, GO TO THE NEAREST EMERGENCY ROOM OR CALL 911 [address] [place] WILLIAM A, have received the attached patient education materials/instructio ns and have verbalized understanding: May we do a follow up call? Yes No I was present when discharge instructions were given Patient Signature Date Clinican/Nurse Signature Date Follow up: With: Address: When: Malina Ballard [address] [place] [address] Business (1) Comments: Keep scheduled appointment Pharmacy Information: You may receive a survey from [employer] asking you to rate your care experience. Your feedback is important and will help us understand what we do well and how we can improve the quality of care we provide to you, your loved ones and our community. It?s an honor to serve you. Thank you for choosing [facility] HERE ARE THE MEDICATION CHANGES THAT OCCURRED DURING YOUR HOSPITAL STAY Medications to Continue with No Changes Printed Prescriptions aspirin (aspirin 325 mg Tab) 1 Tablets By Mouth every day for 30 Days. Refills: 0. sulfamethoxazole-tri methoprim (Bactrim D.S. 800 mg-160 mg Tab) 1 Tablets By Mouth 2 times a day for 7 Days. Refills: 0. Other Medications acetaminophen-oxycod one (Percocet 325 mg-5 mg Tab) 2 Tablets By Mouth every 4 hours as needed Pain 4-7. acetaminophen-oxycod one (Percocet 325 mg-5 mg Tab) 1 Tablets By Mouth every 4 hours as needed Pain 4-7. aspirin (aspirin 81 mg Chew Tab) 1 Tablets Chewed every day. clonazepam 1 Milligram By Mouth 2 times a day. divalproex sodium (divalproex sodium 500 mg ER Tab) 1 Tablets By Mouth 2 times a day. docusate (Colace 100 mg Cap) 1 Capsules By Mouth 2 times a day as needed for constipation. dulaglutide (Trulicity Pen 3 mg/0.5 mL subcutaneous solution) 3 Milligram Subcutaneous every week. glimepiride (glimepiride 2 mg Tab) 1 Tablets By Mouth every day. lisinopril (lisinopril 20 mg Tab) 1 Tablets By Mouth every day. metformin (metformin 500 mg oral tablet) 1 Tablets By Mouth 2 times a day. polycarbophil (Fiber Lax 625 mg oral tablet) 1 Tablets By Mouth every other day. pravastatin (pravastatin 20 mg Tab) 1 Tablets By Mouth once a day (at bedtime). primidone (primidone 50 mg Tab) 0.5 Tablets By Mouth once a day (at bedtime). tizanidine (tizanidine 4 mg oral capsule) 1 Capsules By Mouth at bedtime. tramadol (tramadol 50 mg oral tablet) 1 Tablets By Mouth 2 times a day as needed for pain. trazodone (traZODONE 100 mg Tab) 1 Tablets By Mouth once a day (at bedtime). verapamil (verapamil 180 mg Cap-ER) 1 Capsules By Mouth every day., high heart rate PATIENT EDUCATION INFORMATION Instructions: [place], [place] [facility] DISCHARGE INSTRUCTIONS TOTAL KNEE ARTHROPLASTY INCISION CARE: Mepilex dressing can get wet with showers. Please remove 10 days after surgery per instruction sheet. If emmett present, please coordinate removal 14 days after surgery with office staff. Please notify the office if any increase in redness, tenderness, drainage, fever, or wound separation is noted beyond this point. Compression stockings may be helpful if any significant or uncomfortable swelling in the legs is noted postoperatively. Use and removal instructions should be given by physical thera (more content not included)... Normal [facility] Outside Recordson 01-22-2022 Outside Records [id number]:127 Normal [facility] Comment on above: Other Comment: NOT I T Patient Education - Texton 0 01-22-2022 Patient Education - Text [place], [place] [facility] DISCHARGE INSTRUCTIONS TOTAL KNEE ARTHROPLASTY INCISION CARE: Mepilex dressing can get wet with showers. Please remove 10 days after surgery per instruction sheet. If emmett present, please coordinate removal 14 days after surgery with office staff. Please notify the office if any increase in redness, tenderness, drainage, fever, or wound separation is noted beyond this point. Compression stockings may be helpful if any significant or uncomfortable swelling in the legs is noted postoperatively. Use and removal instructions should be given by physical therapy. If the swelling is below the knee, knee high compression stockings may suffice. If this does cause swelling into the thigh region, waist high compression stockings may be beneficial as well. These can be obtained from most pharmacies, or can be obtained from the hospital or through Home Health. The mild grade compression stockings are best used initially. MEDICATIONS: You may resume your home medications at the time of discharge. Aspirin 325 mg EC oral once a day for 4 weeks for blood clot prevention with meals. Please notify your doctor if you have a stomach sensitivity to Aspirin or history of previous stomach ulcers. Pain medication has been prescribed as well. You may continue to use the pain medication every four hours as needed. Any narcotic pain medication can cause side effects including stomach upset, constipation, or light-headedness. You should not drive or operate machinery, or use alcohol while using the narcotic pain medication. You should not use other pain medications with this prescription pain medication unless further directed by your physician. PHYSICAL THERAPY: Continue the range of motion and strengthening exercises initiated in Physical Therapy in the hospital. [facility] Discharge Instructs for TKA Page 2 Physical Therapy Cont. Continue weight bearing, as ordered, to the operated knee for four to six weeks as directed in Physical Therapy, or until your strength is improved and Physical Therapy will then allow you to progress to full weight. This will be with the use of a walker or crutches initially. After four or six weeks you may then progress to the use of one crutch, or a cane. A quad-cane is preferred as this is more stable. Physical therapy as begun in the hospital will continue at home, possible with the product safety technical assistant of Home Health Physical Therapy or in the hospital as an outpatient. When you have become independent with the physical therapy program, this will then be discontinued as a supervised program and you will be instructed to continue the physical therapy exercises at home. Your exercises are samaniego to successful rehabilitation. You should gain full extension first, hopefully before hospital discharge, then continue to do the exercises to maintain this, and gain 90 degrees flexion by one month post-op. Do the exercises daily, twice if preferred. DRIVING: Please do not drive for 4-6 weeks pending therapy progress. 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 It is therefore advised not to drive until after your first office visit following surgery FOLLOW-UP OFFICE VISIT: Malina Ballard, DO [facility] [address] [place], [place] [id number] Reviewed: 03-02 [facility] Progress Note-Physicianon Progress Note-Physician Patient: HARI THORNTON Age: 46 years Sex: Male : 1975 Associated Diagnoses: None Author: Babatunde Gibbons CRNA Postoperative Information Post Operative Note: Post Anesthesia Care Unit. Anesthetic utilized: General, Monitored anesthesia care. Health Status Allergies: Allergic Reactions (Selected) Severity Not Documented Morphine- Vomiting and trouble breathing. Penicillin- Hives. Vancomycin- Trouble breathing. Current medications: (Selected) Inpatient Medications Ordered Arixtra 2.5 mg/0.5 mL Injection: 2.5 mg = 0.5 mL, Injection, SubCutaneous, qAM for 10 day(s), Stop date 02/02/22 6:29:00 EST, Routine, Start date 01/23/22 6:30:00 EST, Start AM postop day 1 Colace 100 mg Cap: 100 mg = 1 cap(s), Cap, Oral, BID, Routine, Start date 01/22/22 9:00:00 EST, 01/22/22 7:30:00 EST Dulcolax 5 mg Tab-EC: 10 mg = 2 tab(s), Tab-EC, Oral, Daily PRN Constipation, Routine, Start date 01/24/22 7:30:00 EST, 01/24/22 7:30:00 EST HYDROmorphone 1 mg/mL injectable solution: 1 mg = 1 mL, Injection, IV Push, q2hr PRN Pain 8-10 for 5 day(s), Stop date 01/27/22 7:29:00 EST, Routine, Start date 01/22/22 7:30:00 EST, 01/22/22 7:30:00 EST Lactated Ringers IV Ting 1000 mL 1,000 mL: 1,000 mL, IV, 150 mL/hr, Routine, Start date 01/22/22 5:45:00 EST, 6.7 hour(s), Total volume (mL): 1,000, 82.3 kg, 1.98, m2 Milk of Magnesia 8% Susp-Oral: 30 mL, Susp-Oral, Oral, BID PRN Constipation, Routine, Start date 01/22/22 7:30:00 EST Myrbetriq 25 mg oral tablet, extended release: Myrbetriq 25 mg oral tablet, extended release, Oral, Daily, Routine, Start date 01/23/22 9:00:00 EST NS 0.45% 1000 mL Soln-IV 1,000 mL: 1,000 mL, IV, 80 mL/hr, Routine, Start date 01/22/22 7:30:00 EST, 12.5 hour(s), Total volume (mL): 1,000, 82.3 kg, 1.98, m2 Pantoprazole [address] Tab: 40 mg = 1 tab(s), Tab-DR, Oral, Daily, Routine, Start date 01/22/22 9:00:00 EST, 01/22/22 7:30:00 EST Percocet 325 mg-5 mg Tab: 1 tab(s), Tab, Oral, q4hr PRN Pain 4-7 for 5 day(s), Stop date 01/27/22 7:29:00 EST, Routine, Start date 01/22/22 7:30:00 EST Percocet 325 mg-5 mg Tab: 2 tab(s), Tab, Oral, q4hr PRN Pain 4-7 for 5 day(s), Stop date 01/27/22 7:29:00 EST, Routine, Start date 01/22/22 7:30:00 EST Zofran 4 mg/2 mL Injection: 4 mg = 2 mL, Injection, IV Push, q6hr PRN Nausea/Vomiting, Routine, Start date 01/22/22 7:30:00 EST, 01/22/22 7:30:00 EST clindamycin additive + Premix Dextrose 5% Diluent 50 mL: 900 mg = 50 mL, IV Piggyback, q8hr for 2 dose(s), Stop date 01/23/22 6:59:00 EST, Routine, Start date 01/22/22 15:00:00 EST, 100 mL/hr, Infuse over 30 minute(s) diazepam 5 mg Tab: 10 mg = 2 tab(s), Tab, Oral, BID, Routine, Start date 01/17/22 21:00:00 EST, 01/17/22 15:59:00 EST divalproex sodium 500 mg ER Tab: 500 mg = 1 tab(s), Tab-ER, Oral, BID, Routine, Start date 01/22/22 21:00:00 EST glimepiride 2 mg Tab: 2 mg = 1 tab(s), Tab, Oral, Daily, Routine, Start date 01/23/22 9:00:00 EST lisinopril 20 mg Tab: 20 mg = 1 tab(s), Tab, Oral, Daily, Routine, Start date 01/22/22 9:00:00 EST metformin 500 mg Tab: 500 mg = 1 tab(s), Tab, Oral, BID, Routine, Start date 01/22/22 21:00:00 EST nalbuphine 10 mg/mL Inj 1 mL: 5 mg = 0.5 mL, Injection, IV Push, q4hr PRN Pain 8-10, Routine, Start date 01/22/22 7:30:00 EST pravastatin 20 mg Tab: 20 mg = 1 tab(s), Tab, Oral, Once a day (at bedtime), Routine, Start date 01/22/22 21:00:00 EST tiZANidine 4 mg Tab: 4 mg = 1 tab(s), Tab, Oral, Bedtime, Routine, Start date 01/22/22 21:00:00 EST traMADOL 50 mg Tab: 50 mg = 1 tab(s), Tab, Oral, BID PRN Pain for 7 day(s), Stop date 01/24/22 15:59:00 EST, Routine, Start date 01/17/22 16:00:00 EST, 01/17/22 16:00:00 EST traZODONE 50 mg Tab: 100 mg = 2 tab(s), Tab, Oral, Once a day (at bedtime), Routine, Start date 01/22/22 21:00:00 EST verapamil 180 mg ER Tab: 180 mg = 1 tab(s), Tab-ER, Oral, Daily, Routine, Start date 01/23/22 9:00:00 EST Prescriptions Prescribed Bactrim D.S. 800 mg-160 mg Tab: 1 tab(s), Oral, BID for 7 day(s), 14 tab(s), Refill(s) 0 aspirin 325 mg Tab: 325 mg = 1 tab(s), Oral, Daily, X 30 day(s), # 30 tab(s), Refills(s) 0 Documented Medications Documented Colace 100 mg Cap: 100 mg = 1 cap(s), Oral, BID, PRN for constipation, # 20 cap(s), Refills(s) 0 Fiber Lax 625 mg oral tablet: 625 mg = 1 tab(s), Oral, Every other day, Refills(s) 0, Constipation Percocet 325 mg-5 mg Tab: 1 tab(s), Oral, q4hr Pain 4-7, Refill(s) 0 Percocet 325 mg-5 mg Tab: 2 tab(s), Oral, q4hr Pain 4-7, Refill(s) 0 Trulicity Pen 3 mg/0.5 mL subcutaneous solution: 3 mg, SubCutaneous, qWeek, Blood glucose aspirin 81 mg Chew Tab: 81 mg = 1 tab(s), Chewed, Daily, Refills(s) 0 clonazepam: 1 mg, Oral, BID, Psychosis divalproex sodium 500 mg ER Tab: 500 mg = 1 tab(s), Oral, BID, Refills(s) 0, Psychosis glimepiride 2 mg Tab: 2 mg = 1 tab(s), Oral, Daily, Refills(s) 0, Blood glucose lisinopril 20 mg Tab: 20 mg = 1 tab(s), Oral, Daily, High blood pressure metformin 500 mg oral tablet: 500 mg = 1 (more content not included)... Normal [facility] Comment on above: Result Comment: Elec tronically Signed By: Babatunde Gibbons CRNA\.br\Date and Time Signed: 01/22/22 09:26 EST Progress Note-Physician Patient: HARI THORNTON Age: 46 years Sex: Male : 1975 Associated Diagnoses: None Author: Babatunde Gibbons CRNA Review of Systems Constitutional: Negative. Neurologic: Negative except as documented in history of present illness. Psychiatric: Anxiety. Health Status Allergies: Allergic Reactions (Selected) Severity Not Documented Morphine- Vomiting and trouble breathing. Penicillin- Hives. Vancomycin- Trouble breathing., Allergies (3) Active Reaction morphine Vomiting penicillin Hives vancomycin Trouble breathing Current medications: (Selected) Inpatient Medications Ordered Arixtra 2.5 mg/0.5 mL Injection: 2.5 mg = 0.5 mL, Injection, SubCutaneous, qAM for 10 day(s), Stop date 02/02/22 6:29:00 EST, Routine, Start date 01/23/22 6:30:00 EST, Start AM postop day 1 Colace 100 mg Cap: 100 mg = 1 cap(s), Cap, Oral, BID, Routine, Start date 01/22/22 9:00:00 EST, 01/22/22 7:30:00 EST Dulcolax 5 mg Tab-EC: 10 mg = 2 tab(s), Tab-EC, Oral, Daily PRN Constipation, Routine, Start date 01/24/22 7:30:00 EST, 01/24/22 7:30:00 EST HYDROmorphone 1 mg/mL injectable solution: 1 mg = 1 mL, Injection, IV Push, q2hr PRN Pain 8-10 for 5 day(s), Stop date 01/27/22 7:29:00 EST, Routine, Start date 01/22/22 7:30:00 EST, 01/22/22 7:30:00 EST Lactated Ringers IV Ting 1000 mL 1,000 mL: 1,000 mL, IV, 150 mL/hr, Routine, Start date 01/22/22 5:45:00 EST, 6.7 hour(s), Total volume (mL): 1,000, 82.3 kg, 1.98, m2 Milk of Magnesia 8% Susp-Oral: 30 mL, Susp-Oral, Oral, BID PRN Constipation, Routine, Start date 01/22/22 7:30:00 EST Myrbetriq 25 mg oral tablet, extended release: Myrbetriq 25 mg oral tablet, extended release, Oral, Daily, Routine, Start date 01/23/22 9:00:00 EST NS 0.45% 1000 mL Soln-IV 1,000 mL: 1,000 mL, IV, 80 mL/hr, Routine, Start date 01/22/22 7:30:00 EST, 12.5 hour(s), Total volume (mL): 1,000, 82.3 kg, 1.98, m2 Pantoprazole [address] Tab: 40 mg = 1 tab(s), Tab-DR, Oral, Daily, Routine, Start date 01/22/22 9:00:00 EST, 01/22/22 7:30:00 EST Percocet 325 mg-5 mg Tab: 1 tab(s), Tab, Oral, q4hr PRN Pain 4-7 for 5 day(s), Stop date 01/27/22 7:29:00 EST, Routine, Start date 01/22/22 7:30:00 EST Percocet 325 mg-5 mg Tab: 2 tab(s), Tab, Oral, q4hr PRN Pain 4-7 for 5 day(s), Stop date 01/27/22 7:29:00 EST, Routine, Start date 01/22/22 7:30:00 EST Sodium Chloride 0.9% IV Ting 50 mL (INT): 50 mL, Soln-IV, IntraLesional, Once, Stop date 01/22/22 7:00:00 EST, Routine, Start date 01/22/22 7:00:00 EST Zofran 4 mg/2 mL Injection: 4 mg = 2 mL, Injection, IV Push, q6hr PRN Nausea/Vomiting, Routine, Start date 01/22/22 7:30:00 EST, 01/22/22 7:30:00 EST bupivacaine liposome 1.3% (13.3 mg/mL) injectable suspension: 266 mg = 20 mL, Injection, IntraLesional, Once, Stop date 01/22/22 7:00:00 EST, Routine, Start date 01/22/22 7:00:00 EST, 01/22/22 6:56:00 EST bupivacaine-epinephr ine 0.25%-1:200,000 PF Inj 30 mL: 75 mg, 30 mL, Injection, IntraLesional, Once, Stop date 01/22/22 7:00:00 EST, Routine, Start date 01/22/22 7:00:00 EST clindamycin additive + Premix Dextrose 5% Diluent 50 mL: 900 mg = 50 mL, IV Piggyback, q8hr for 2 dose(s), Stop date 01/22/22 23:59:00 EST, Routine, Start date 01/22/22 8:00:00 EST, 100 mL/hr, Infuse over 30 minute(s), 01/22/22 7:30:00 EST clindamycin additive + Premix Dextrose 5% Diluent 50 mL: 900 mg = 50 mL, Soln-IV, IV Piggyback, PREOP, Routine, Start date 01/22/22 5:45:00 EST, 100 mL/hr, Infuse over 30 minute(s) diazepam 5 mg Tab: 10 mg = 2 tab(s), Tab, Oral, BID, Routine, Start date 01/17/22 21:00:00 EST, 01/17/22 15:59:00 EST divalproex sodium 500 mg ER Tab: 500 mg = 1 tab(s), Tab-ER, Oral, BID, Routine, Start date 01/22/22 21:00:00 EST glimepiride 2 mg Tab: 2 mg = 1 tab(s), Tab, Oral, Daily, Routine, Start date 01/23/22 9:00:00 EST lisinopril 20 mg Tab: 20 mg = 1 tab(s), Tab, Oral, Daily, Routine, Start date 01/22/22 9:00:00 EST metformin 500 mg Tab: 500 mg = 1 tab(s), Tab, Oral, BID, Routine, Start date 01/22/22 21:00:00 EST nalbuphine 10 mg/mL Inj 1 mL: 5 mg = 0.5 mL, Injection, IV Push, q4hr PRN Pain 8-10, Routine, Start date 01/22/22 7:30:00 EST pravastatin 20 mg Tab: 20 mg = 1 tab(s), Tab, Oral, Once a day (at bedtime), Routine, Start date 01/22/22 21:00:00 EST tiZANidine 4 mg Tab: 4 mg = 1 tab(s), Tab, Oral, Bedtime, Routine, Start date 01/22/22 21:00:00 EST traMADOL 50 mg Tab: 50 mg = 1 tab(s), Tab, Oral, BID PRN Pain for 7 day(s), Stop date 01/24/22 15:59:00 EST, Routine, Start date 01/17/22 16:00:00 EST, 01/17/22 16:00:00 EST traZODONE 50 mg Tab: 100 mg = 2 tab(s), Tab, Oral, Once a day (at bedtime), Routine, Start date 01/22/22 21:00:00 EST tranexamic acid 100 mg/mL intravenous solution: 2,000 mg = 20 mL, Injection, Misc, Once, Stop date 01/22/22 7:00:00 EST, Routine, Start date 01/22/22 7:00:00 EST, To be given to the field for injection into the operative site during the procedure. verapamil 180 mg ER Tab: 180 mg = 1 tab(s), Tab-ER, Oral, Daily, Routine, Start date (more content not included)... Normal [facility] Comment on above: Result Comment: Elec tronically Signed By: Babatunde Gibbons CRNA.br\Date and Time Signed: 01/22/22 07:37 EST XR Knee 1 or 2 Views Righton 01-22-2022 XR Knee 1 or 2 Views Right Exam Date/Time: 01/22/2022 08:55 EST Reason for Exam: Post-op evaluation;Other (please specify) Report IMPRESSION: Interval right knee arthroplasty without radiographic complication. EXAMINATION/TECHNIQU E: XR Knee 1 or 2 Views Right HISTORY: Postop right knee COMPARISON: 11/27/2021. RESULT: Interval right total knee arthroplasty with patellar resurfacing. Hardware appears grossly intact. No periprosthetic fracture or periprosthetic lucency. Soft tissue gas and edema about the knee from the recent procedure. No other significant abnormality. FINAL REPORT Dictated: 01/22/2022 9:34 am Calvin Frankel MD Signed (Electronic Signature): 01/22/2022 9:34 am Signed by: Calvin Frankel MD Transcribed by: GARCIA Technologist: [employer] [facility] Consent for Procedure/Surger yon 01-19-2022 Consent for Procedure/Surgery [id number] #[id number]:127 [facility] Outside Recordson 01-19-2022 Outside Records [id number] #[id number]:127 [facility] Basic Metabolic Panelon 12-3 Anion gap [Moles/Vol] 13 mmol/L 9 - 17 mmol/L [facility] [employer] Calcium [Mass/Vol] 10.2 mg/dL 8.6 - 10. 4 mg/dL [facility] [employer] Chloride [Moles/Vol] 103 mmol/L 98 - 107 mmol/L [facility] CO2 [Moles/Vol] 23 mmol/L 20 - 31 mmol/L [facility] Creatinine [Mass/Vol] 0.59 mg/dL Low 0.70 - 1.20 mg/dL [facility] [employer] GFR >60 >60 mL/min [facility] GFR Non- >60 >60 mL/min [facility] Glucose [Mass/Vol] 147 mg/dL High 70 - 99 mg/dL [facility] Interpretation and review of laboratory results Abnormal [facility] [employer] Potassium [Moles/Vol] 4.4 mmol/L 3.7 - 5.3 mmol/L [facility] Sodium [Moles/Vol] 139 mmol/L 135 - 144 mmol/L [facility] Urea nitrogen (BldV) [Mass/Vol] 10 mg/dL 6 - 20 mg/dL [facility] Urea nitrogen/Creatinine (Bld) [Mass ratio] 17 [facility] [employer] CBC Auto Differentialon 12-3 Absolute Eos # 0.09 [facility] th Absolute Immature Granulocyte 0.06 [facility] Absolute Lymph # 2.21 [facility] He alth Absolute [place] # 0.68 [facility] Basophils (Bld) [#/Vol] 0.06 10*3/uL [facility] Basophils/100 WBC (Bld) 1 % 0 - 2 % [facility] [employer] Differential Type NOT REPORTED [facility] Eosinophils/100 WBC (Bld) 1 % 1 - 4 % [facility] Hematocrit (Bld) [Volume fraction] 41.6 % 40.7 - 50.3 % [facility] Hemoglobin.gastroin testinal spec 1 Ql (Stl) 14.2 g/dL 13.0 - 17.0 g/dL [facility] Immature granulocytes/100 WBC (Bld) 1 % High 0 [facility] [employer] Interpretation and review of laboratory results Abnormal [facility] Lymphocytes/100 WBC (Bld) 35 % 24 - 43 % [facility] [employer] MCH (RBC) [Entitic mass] 32.1 pg 25.2 - 33.5 pg [facility] [employer] MCHC (RBC) [Mass/Vol] 34.1 g/dL 28.4 - 34.8 g/dL [employer] MCV (RBC) [Entitic vol] 94.1 fL 82.6 - 102.9 fL [employer] Monocytes/100 WBC (Bld) 11 % 3 - 12 % [employer] NRBC Automated 0.0 0.0 per 100 WBC [employer] Platelet distribution width (Bld) [Ratio] 11.9 % 11.8 - 14.4 % [employer] Platelet Estimate NOT REPORTED [employer] Platelet mean volume (Bld) [Entitic vol] 9.5 fL 8.1 - 13.5 fL [employer] Platelets (Bld) [#/Vol] 293 10*3/uL [employer] RBC (Bld) [#/Vol] 4.42 10*6/uL 4.21 - 5.7 7 m/uL [employer] RBC (Bld) [#/Vol] NOT REPORTED [employer] Segmented neutrophils/100 WBC (Bld) 51 % 36 - 65 % [employer] Segs Absolute 3.18 [facility] h WBC (Bld) [#/Vol] 6.3 10*3/uL [employer] WBC (Bld) [#/Vol] NOT REPORTED [facility] [employer] [facility] EKG 12 LeadOrdered By: Zheng Anderson on 11-23-2021 Atrial Rate 77 BPM [employer] Work Phone: P [place] 66 degrees [employer] Work Phone: P-R Interval 156 ms [employer] Work Phone: Q-T Interval 370 ms [employer] Work Phone: QRS Duration 92 ms [employer] Work Phone: QTc Calculation (Bazett) 418 ms [employer] Work Phone: R [place] 54 degrees [employer] Work Phone: T [place] 74 degrees [employer] Work Phone: Ventricular Rate 77 BPM [employer] Work Phone: [employer] Work Phone: EKG 12 Leadon 11-23-2021 Normal sinus rhythm with sinus arrhythmia Possible Left atrial enlargement Nonspecific ST abnormality Abnormal ECG When compared with ECG of 16-NOV-2020 09:53, QT has shortened Confirmed by COCO ANDERSON ([id number]) on 11/23/2021 12:44:06 PM [facility] RADIOLOG[facility] Coco Anderson MD - 11/23/2021 Normal sinus rhythm with sinus arrhythmia Possible Left atrial enlargement Nonspecific ST abnormality Abnormal ECG When compared with ECG of 16-NOV-2020 09:53, QT has shortened Confirmed by COCO ANDERSON ([id number]) on 11/23/2021 12:44:06 PM [facility] Work Phone: Hemoglobin A1Con 11-23-2021 Glucose [Mass/Vol] 214 mg/dL [facility] Comment on above: The ADA and AACC rec ommend providing the estimated average glucose result to permit better patient understanding of their HBA1c result. HbA1c (Bld) [Mass fraction] 9.1 % High 4.0 - 6.0 % [facility] Interpretation and review of laboratory results Abnormal [facility] Laboratory - Chemistry and C hemistry - challengeon 11-23-2021 GFR/1.73 sq M.predicted MDRD (S/P/Bld) [Vol rate/Area] [facility] Comment on above: Average GFR for 40-4 9 years old: 99 mL/min/1.73sq m Chronic Kidney Disease: <60 mL/min/1.73sq m Kidney failure: <15 mL/min/1.73sq m eGFR calculated using average adult body mass. Additional eGFR calculator available at: http://[email or web address].giftee/multiple_crcl_2012.htm Stage 1: Some kidney damage normal GFR Stage 2: Mild kidney damage GFR 60-89 Stage 3: Moderate kidney damage GFR 30-59 Stage 4: Severe kidney damage GFR 15-29 Stage 5: Severe kidney damage GFR <15 ESRD - chronic treatment by dialysis or transplant No Panel Informationon 11-23 [facility] TSH without Reflexon 021 TSH Qn 3.67 m[IU]/L [facility] Urinalysis with Microscopico n 11-23-2021 - [facility] Amorphous, UA NOT REPORTED None [facility] Bacteria, UA NOT REPORTED None [facility] Bilirubin Urine Negative NEGATIVE [facility] Casts UA NOT REPORTED /LPF [facility] Color, UA Yellow Yellow [facility] Crystals, UA NOT REPORTED None /HPF [facility] Epithelial Cells UA 0 TO 2 [facility] Glucose, Ur Negative NEGATIVE [facility] Ketones Ql (U) Negative NEGATIVE [facility] Leukocyte esterase Test strip Ql (U) Negative NEGATIVE [facility] Mucus, UA NOT REPORTED None [facility] Nitrite, Urine Negative NEGATIVE [facility] Other Observations UA NOT REPORTED NOT REQ. [facility] pH, UA 6.0 [facility] Protein, UA Negative NEGATIVE [facility] RBC, UA 0 TO 2 [facility] Renal Epithelial, UA NOT REPORTED 0 /HPF [facility] Specific [place], UA 1.020 [facility] Trichomonas, UA NOT REPORTED None [facility] ealt Turbidity UA Clear Clear [facility] Urinalysis Comments NOT REPORTED [facility] Urine Hgb Negative NEGATIVE [facility] Urobilinogen, Urine Normal Normal [facility] WBC, UA 0 TO 2 [facility] Yeast, UA NOT REPORTED None [facility] Glucose, Whole Bloodon 11-24 Glucose [Mass/Vol] 141 mg/dL High 74 - 100 mg/dL [place], [place] Interpretation and review of laboratory results Abnormal [place] COVID-19on 11-19-2020 SARS-CoV-2 [place] SARS-CoV-2 Not Detected Not Detected [place], [place] Comment on above: The specimen is NEGATIVE for SARS-CoV-2, the novel coronavirus associated with COVID-19. A negative result does not rule out COVID-19. Ching SARS-CoV-2 for use on the Ching 6800/8800 Systems is a real-time RT-PCR test intended for the qualitative detection of nucleic acids from SARS-CoV-2 in clinician-collected nasal, nasopharyngeal, and oropharyngeal swab specimens from individuals who meet COVID-19 clinical and/or epidemiological criteria. Ching SARS-CoV-2 is for use only under Emergency Use Authorization (EUA) in laboratories certified under Clinical Laboratory Improvement Amendments of 1988 (CLIA), 42 U.S.C. 263a, that meet requirements to perform high or moderate complexity tests. An individual without symptoms of COVID-19 and who is not shedding SARS-CoV-2 virus would expect to have a negative (not detected) result in this assay. Fact sheet for Healthcare Providers: https://www.fda.gov/media/495576/download Fact sheet for Patients: https://www.fda.gov/media/630821/download METHODOLOGY: RT-PCR SARS-CoV-2, [place], [place] Source .THROAT SWAB [place] Comment on above: CORRECTED ON 11/17 A T 1007: PREVIOUSLY REPORTED .NASOPHARYNGEAL SWAB MRI BRAIN W WO CONTRASTon Unremarkable MRI of the orbits. Old right basal ganglia lacune. Mild chronic microvascular disease within the periventricular white matter. [place] EXAMINATION: MRI OF THE BRAIN WITHOUT AND WITH CONTRAST; MRI OF THE BRAIN AND MRI OF THE ORBITS WITH AND WITHOUT CONTRAST 11/17/2020 8:40 am TECHNIQUE: Multiplanar multisequence MRI of the head/brain was performed without and with the administration of intravenous contrast.; Multiplanar multisequence MRI of the brain and MRI of the orbits was performed with and without intravenous contrast. COMPARISON: None. HISTORY: ORDERING SYSTEM PROVIDED HISTORY: Alternating exotropia FINDINGS: INTRACRANIAL STRUCTURES/VENTRICLE S: There is no acute infarct. No mass effect or midline shift. No evidence of an acute intracranial hemorrhage. The ventricles and sulci are normal in size and configuration. The sellar/suprasellar regions appear unremarkable. The normal signal voids within the major intracranial vessels appear maintained. No abnormal focus of enhancement is seen within the brain. Old right basal ganglionic lacune is identified. Mild involutional changes are noted within the brain. The brainstem is unremarkable. Minimal chronic microvascular disease is identified within the periventricular white matter. ORBITS: The visualized portion of the orbits demonstrate no acute abnormality. The globes are symmetric in appearance. No intraconal or extraconal mass lesion is appreciated. The extraocular muscles are normal. The optic chiasm and optic nerves are normal. No abnormal enhancement is appreciated within the orbits. The cavernous sinuses are symmetric. SINUSES: The visualized paranasal sinuses and mastoid air cells are well aerated. BONES/SOFT TISSUES: The bone marrow signal intensity appears normal. The soft tissues demonstrate no acute abnormality. [place], [place] Tod, Mh[facility] Incoming Radiant Results From [employer] - 11/17/2020 11:22 AM EST EXAMINATION: MRI OF THE BRAIN WITHOUT AND WITH CONTRAST; MRI OF THE BRAIN AND MRI OF THE ORBITS WITH AND WITHOUT CONTRAST 11/17/2020 8:40 am TECHNIQUE: Multiplanar multisequence MRI of the head/brain was performed without and with the administration of intravenous contrast.; Multiplanar multisequence MRI of the brain and MRI of the orbits was performed with and without intravenous contrast. COMPARISON: None. HISTORY: ORDERING SYSTEM PROVIDED HISTORY: Alternating exotropia FINDINGS: INTRACRANIAL STRUCTURES/VENTRICLE S: There is no acute infarct. No mass effect or midline shift. No evidence of an acute intracranial hemorrhage. The ventricles and sulci are normal in size and configuration. The sellar/suprasellar regions appear unremarkable. The normal signal voids within the major intracranial vessels appear maintained. No abnormal focus of enhancement is seen within the brain. Old right basal ganglionic lacune is identified. Mild involutional changes are noted within the brain. The brainstem is unremarkable. Minimal chronic microvascular disease is identified within the periventricular white matter. ORBITS: The visualized portion of the orbits demonstrate no acute abnormality. The globes are symmetric in appearance. No intraconal or extraconal mass lesion is appreciated. The extraocular muscles are normal. The optic chiasm and optic nerves are normal. No abnormal enhancement is appreciated within the orbits. The cavernous sinuses are symmetric. SINUSES: The visualized paranasal sinuses and mastoid air cells are well aerated. BONES/SOFT TISSUES: The bone marrow signal intensity appears normal. The soft tissues demonstrate no acute abnormality. IMPRESSION: Unremarkable MRI of the orbits. Old right basal ganglia lacune. Mild chronic microvascular disease within the periventricular white matter. [place] Basic Metabolic Panel (BMP)o n 11-16-2020 Anion gap [Moles/Vol] 12 mmol/L 9 - 17 mmol/L [place] Bun/Cre Ratio 14 [place] Calcium [Mass/Vol] 10.2 mg/dL 8.6 - 10. 4 mg/dL [place] Chloride [Moles/Vol] 100 mmol/L 98 - 107 mmol/L [place] CO2 [Moles/Vol] 23 mmol/L 20 - 31 mmol/L [place] Creatinine [Mass/Vol] 0.66 mg/dL Low 0.7 - 1.2 mg/dL [place] GFR >60 >60 mL/min [place] GFR Non- >60 >60 mL/min [place] Glucose [Mass/Vol] 145 mg/dL High 70 - 99 mg/dL [place], [place] Interpretation and review of laboratory results Abnormal [place] Potassium [Moles/Vol] 4.2 mmol/L 3.7 - 5.3 mmol/L [place] Sodium [Moles/Vol] 135 mmol/L 135 - 144 mmol/L [place] Urea nitrogen [Mass/Vol] 9 mg/dL 6 - 20 mg/dL [place] CBCon 11-16-2020 Erythrocyte distribution width (RBC) [Ratio] 12.3 % 11.8 - 14.4 % [place] Hematocrit (Bld) [Volume fraction] 40.6 % Low 40.7 - 50.3 % [place] Hemoglobin (Bld) [Mass/Vol] 13.7 g/dL 13 - 17 g/dL [place] Interpretation and review of laboratory results Abnormal [place] MCH (RBC) [Entitic mass] 32.5 pg 25.2 - 33.5 pg [place] MCHC (RBC) [Mass/Vol] 33.7 g/dL 28.4 - 34.8 g/dL [place] MCV (RBC) [Entitic vol] 96.4 fL 82.6 - 102.9 fL [place] Platelet mean volume (Bld) [Entitic vol] 9.4 fL 8.1 - 13.5 fL [place] Platelets (Bld) [#/Vol] 210 10*3/uL [place] RBC (Bld) [#/Vol] 4.21 10*6/uL 4.21 - 5.7 7 m/uL [place] WBC (Bld) [#/Vol] 0.0 10*3/uL 0.0 per 100 WBC M [place] WBC (Bld) [#/Vol] 5.5 10*3/uL [place] EKG 12 Leadon 11-16-2020 Atrial Rate 88 BPM [place] P [place] 66 degrees [place] P-R Interval 164 ms [place] Q-T Interval 392 ms [place] QRS Duration 92 ms [place] QTc Calculation (Bazett) 474 ms [place] R [place] 61 degrees [place] T [place] 90 degrees [place] Ventricular Rate 88 BPM [place] Tod, Mhpn Incoming Ekg Results From [facility] - 11/16/2020 5:30 PM EST Normal sinus rhythm Nonspecific T wave abnormality Abnormal ECG When compared with ECG of 08-AUG-2004 08:48, Nonspecific T wave abnormality now evident in Inferior leads QT has lengthened Confirmed by Adama Aguirre MD ([id number]) on 11/16/2020 5:30:37 PM [place] Normal sinus rhythm Nonspecific T wave abnormality Abnormal ECG When compared with ECG of 08-AUG-2004 08:48, Nonspecific T wave abnormality now evident in Inferior leads QT has lengthened Confirmed by Adama Aguirre MD ([id number]) on 11/16/2020 5:30:37 PM [place] Metabolic Panelon 11-16-2020 GFR/1.73 sq M predicted among non-blacks MDRD (S/P/Bld) [Vol rate/Area] [place] Comment on above: Stage 1: Some kidney damage normal GFR Stage 2: Mild kidney damage GFR 60-89 Stage 3: Moderate kidney damage GFR 30-59 Stage 4: Severe kidney damage GFR 15-29 Stage 5: Severe kidney damage GFR <15 ESRD - chronic treatment by dialysis or transplant Average GFR for 40-4 9 years old: 99 mL/min/1.73sq m Chronic Kidney Disease: <60 mL/min/1.73sq m Kidney failure: <15 mL/min/1.73sq m eGFR calculated using average adult body mass. Additional eGFR calculator available at: http://www.GetThis/multiple_crcl_2012.htm Vital Signs Date Time Vital Sign Value Performing Clinician Facility 06-24-2024 11:46-0400 Body height 167.64 cm DO Narayan Ball Work Phone: [facility] 06-24-2024 11:46-0400 Body mass index (BMI) [Ratio] 28.1 kg/m2 DO Narayan Ball Work Phone: [facility] 06-24-2024 11:46-0400 Body weight 79.15 kg DO Narayan Ball Work Phone: [facility] 06-24-2024 11:46-0400 Diastolic blood pressure 74 mm[Hg] DO Narayan Ball Work Phone: [facility] 06-24-2024 11:46-0400 Heart rate 114 /min DO Narayan Ball Work Phone: [facility] 06-24-2024 11:46-0400 Respiratory rate 12 /min DO Narayan Ball Work Phone: [facility] 06-24-2024 11:46-0400 Systolic blood pressure 110 mm[Hg] DO Narayan Ball Work Phone: [facility] 05-15-2024 06:52-0400 Body height 167.64 cm DO Narayan Ball Work Phone: [facility] 05-15-2024 06:52-0400 Body weight 79.37 kg DO Narayan Ball Work Phone: [facility] 05-07-2024 10:00-0400 Diastolic blood pressure 63 mm[Hg] Kashmir Consolo DPM [facility] [employer] 05-07-2024 10:00-0400 Heart rate 89 /min Kashmri Consolo DPM Work Phone[facility] 05-07-2024 10:00-0400 Respiratory rate 15 /min Kashmir Consolo DPM Work Phone: [facility] 05-07-2024 10:00-0400 SaO2% (BldA) [Mass fraction] 93 % Kashmir Consolo DPM Work Phone: [employer] 05-07-2024 10:00-0400 Systolic blood pressure 109 mm[Hg] Kashmir Kelly DPM Work Phone: [facility] [employer] 05-07-2024 09:21-0400 Body temperature 98.8 [degF] Kashmir Kelly DPM Work Phone: [facility] [employer] 05-07-2024 07:23-0400 Body mass index (BMI) [Ratio] 28.02 kg/m2 Kashmir Kelly DPM Work Phone: [employer] 05-07-2024 07:23-0400 Body weight 78.74 kg Kashmir Kelly DPM Work Phone: [facility] [employer] 05-01-2024 10:25-0400 Body height 167.6 cm [facility] [employer] 05-01-2024 10:25-0400 Body mass index (BMI) [Ratio] 28.73 kg/m2 [facility] [employer] 05-01-2024 10:25-0400 Body temperature 98.01 [degF] [facility] [employer] 05-01-2024 10:25-0400 Body weight 80.74 kg [facility] 05-01-2024 10:25-0400 Diastolic blood pressure 71 mm[Hg] [facility] [employer] 05-01-2024 10:25-0400 Heart rate 96 /min [facility] 05-01-2024 10:25-0400 Respiratory rate 18 /min [facility] 05-01-2024 10:25-0400 SaO2% (BldA) [Mass fraction] 96 % [facility] [employer] 05-01-2024 10:25-0400 Systolic blood pressure 109 mm[Hg] [facility] [employer] 03-12-2024 13:05-0400 Body height 167.64 cm [facility] 03-12-2024 13:05-0400 Body mass index (BMI) [Ratio] 27.4 kg/m2 [facility] 03-12-2024 13:05-0400 Body weight 77.11 kg [facility] 03-12-2024 13:05-0400 Diastolic blood pressure 62 mm[Hg] [facility] 03-12-2024 13:05-0400 Heart rate 136 /min [facility] 03-12-2024 13:05-0400 SaO2% (BldA) [Mass fraction] 98 % [facility] 03-12-2024 13:05-0400 Systolic blood pressure 116 mm[Hg] [facility] 01-23-2024 10:14-0500 Body height 167.64 cm [facility] 01-23-2024 10:14-0500 Body mass index (BMI) [Ratio] 27.8 kg/m2 [facility] 01-23-2024 10:14-0500 Body weight 78.18 kg [facility] 01-23-2024 10:14-0500 Diastolic blood pressure 67 mm[Hg] [facility] 01-23-2024 10:14-0500 Heart rate 71 /min [facility] 01-23-2024 10:14-0500 Respiratory rate 16 /min [facility] 01-23-2024 10:14-0500 Systolic blood pressure 94 mm[Hg] [facility] 09-20-2023 11:30-0400 Body height 167.64 cm Narayan Ball Other [facility] [employer] Other 09-20-2023 11:30-0400 Body mass index (BMI) [Ratio] 28.15 kg/m2 Narayan Ball Other [facility] [employer] Other 09-20-2023 11:30-0400 Body weight 79.11 kg Narayan Ball Other [facility] [employer] Other 09-20-2023 11:30-0400 Diastolic blood pressure 90 mm[Hg] Narayan Ball Other [employer] Other 09-20-2023 11:30-0400 Respiratory rate 16 /min Narayan Ball Other [employer] Other 09-20-2023 11:30-0400 Systolic blood pressure 132 mm[Hg] Narayan Ball Other [employer] Other 03-04-2023 12:00-0400 Body height 167.64 cm Narayan Ball Other [employer] Other 03-04-2023 12:00-0400 Body mass index (BMI) [Ratio] 28.34 kg/m2 Narayan Ball Other [employer] Other 03-04-2023 12:00-0400 Body weight 79.65 kg Narayan Ball Other [employer] Other 03-04-2023 12:00-0400 Diastolic blood pressure 74 mm[Hg] Narayan Ball Other [employer] Other 03-04-2023 12:00-0400 Respiratory rate 16 /min Narayan Ball Other [employer] Other 03-04-2023 12:00-0400 Systolic blood pressure 106 mm[Hg] Narayan Ball Other [employer] Other 02-08-2023 10:30-0400 Body height 167.64 cm Narayan Ball Other [employer] Other 02-08-2023 10:30-0400 Body mass index (BMI) [Ratio] 27.92 kg/m2 Narayan Ball Other [employer] Other 02-08-2023 10:30-0400 Body weight 78.47 kg Narayan Ball Other [employer] Other 02-08-2023 10:30-0400 Diastolic blood pressure 72 mm[Hg] Narayan Ball Other [employer] Other 02-08-2023 10:30-0400 Respiratory rate 16 /min Narayan Ball Other [employer] Other 02-08-2023 10:30-0400 Systolic blood pressure 108 mm[Hg] Narayan Ball Other [facility] [employer] Other 01-02-2023 13:15-0500 Diastolic blood pressure 82 mm[Hg] Phan SALAM [facility] 01-02-2023 13:15-0500 Heart rate 84 /min Phan SALAM [facility] 01-02-2023 13:15-0500 Respiratory rate 18 /min Phan SALAM [facility] 01-02-2023 13:15-0500 SaO2% (BldA) [Mass fraction] 94 % Phan SALAM [facility] 01-02-2023 13:15-0500 Systolic blood pressure 119 mm[Hg] Phan SALAM [facility] 01-02-2023 13:05-0500 Diastolic blood pressure 88 mm[Hg] Phan SALAM [facility] 01-02-2023 13:05-0500 Heart rate 95 /min Phan SALAM [facility] 01-02-2023 13:05-0500 Respiratory rate 18 /min Phan SALAM [facility] 01-02-2023 13:05-0500 SaO2% (BldA) [Mass fraction] 94 % Phan SALAM [facility] 01-02-2023 13:05-0500 Systolic blood pressure 126 mm[Hg] Phan SALAM [facility] 01-02-2023 13:00-0500 Diastolic blood pressure 77 mm[Hg] Phan SALAM [facility] 01-02-2023 13:00-0500 Heart rate 87 /min Phan SALAM [facility] 01-02-2023 13:00-0500 Respiratory rate 21 /min Phan SALAM [facility] 01-02-2023 13:00-0500 Systolic blood pressure 114 mm[Hg] Phan SALAM [facility] 01-02-2023 12:50-0500 Body temperature 98.42 [degF] Phan SALAM [facility] 01-02-2023 11:59-0500 Blood Pressure Location Phan SALAM [facility] 01-02-2023 11:59-0500 Body temperature 99.32 [degF] Phan SALAM [facility] 11-01-2022 12:12-0500 Blood Pressure Location Sue Kiera [facility] 11-01-2022 12:12-0500 Body temperature 97.88 [degF] Sue Kiera [facility] 11-01-2022 12:12-0500 Diastolic blood pressure 59 mm[Hg] Sue Kiera [facility] 11-01-2022 12:12-0500 Heart rate 89 /min Sue Kiera [facility] 11-01-2022 12:12-0500 Systolic blood pressure 93 mm[Hg] Sue Qureshi [facility] [employer] 06-25-2022 11:24-0400 Body mass index (BMI) [Ratio] 29.54 kg/m2 Narayan Ball DO Work Phone: [facility] [employer] 06-25-2022 11:24-0400 Body temperature 98.4 [degF] Narayan Ball DO Work Phone: [facility] [employer] 06-25-2022 11:24-0400 Body weight 83.01 kg Narayan Ball DO Work Phone: [facility] [employer] 06-25-2022 11:24-0400 Diastolic blood pressure 89 mm[Hg] Narayan Ball DO Work Phone: [employer] 06-25-2022 11:24-0400 Heart rate 105 /min Narayan Ball DO Work Phone: [facility] [employer] 06-25-2022 11:24-0400 Respiratory rate 18 /min Narayan Ball DO Work Phone: [facility] [employer] 06-25-2022 11:24-0400 SaO2% (BldA) [Mass fraction] 97 % Narayan Ball DO Work Phone: [employer] 06-25-2022 11:24-0400 Systolic blood pressure 148 mm[Hg] Narayan Ball DO Work Phone: [facility] [employer] 05-16-2022 19:21-0400 Diastolic blood pressure 88 mm[Hg] Narayan Ball DO Work Phone: [employer] 05-16-2022 19:21-0400 Heart rate 95 /min Narayan Ball DO Work Phone: [facility] [employer] 05-16-2022 19:21-0400 Respiratory rate 18 /min Narayan Ball DO Work Phone: [facility] [employer] 05-16-2022 19:21-0400 SaO2% (BldA) [Mass fraction] 97 % Narayan Ball DO Work Phone: [facility] [employer] 05-16-2022 19:21-0400 Systolic blood pressure 149 mm[Hg] Narayan Ball DO [facility] 05-16-2022 15:46-0400 Body mass index (BMI) [Ratio] 29.54 kg/m2 Narayan Ball DO Work [facility] 05-16-2022 15:46-0400 Body temperature 99.3 [degF] Narayan Bespoke Post DO Work [facility] 05-16-2022 15:46-0400 Body weight 83.01 kg Narayan Ball DO Work Phone: [facility] [employer] 11-23-2021 09:02-0500 Body height 167.6 cm Kashmir Consolo DPM Work Phone: [employer] 11-23-2021 09:02-0500 Body mass index (BMI) [Ratio] 29.12 kg/m2 Kashmir Consolo DPM Work Phone: [employer] 11-23-2021 09:02-0500 Body temperature 97.9 [degF] Kashmir Consolo DPM Work Phone: [employer] 11-23-2021 09:02-0500 Body weight 81.83 kg Kasmhir Consolo DPM Work Phone: [employer] 11-23-2021 09:02-0500 Diastolic blood pressure 84 mm[Hg] Kashmir Consolo DPM Work Phone: [employer] 11-23-2021 09:02-0500 Heart rate 102 /min Kashmir Consolo DPM Work Phone: [employer] 11-23-2021 09:02-0500 Respiratory rate 20 /min Kashmir Consolo DPM Work Phone: [employer] 11-23-2021 09:02-0500 SaO2% (BldA) [Mass fraction] 96 % Kashmir Kelly DPM Work Phone: [facility] 11-23-2021 09:02-0500 Systolic blood pressure 150 mm[Hg] Kashmir Kelly DPM Work Phone: [facility] 11-24-2020 10:30-0500 BP Diastolic 91 mm[Hg] Kashmir [facility] [place] , [place] 11-24-2020 10:30-0500 BP Systolic 145 mm[Hg] Kashmir Kelly [facility] [place] 11-24-2020 10:30-0500 Pulse (Heart Rate) 78 /min Kashmir [facility] [place] 11-24-2020 10:30-0500 Pulse Oximetry 91 % Kashmir [facility] [place] 11-24-2020 10:30-0500 Respiratory Rate 18 /min [facility] [place] 11-24-2020 09:42-0500 Body Temperature 98.1 [degF] Kashmir [facility] 11-24-2020 08:21-0500 BMI (Body Mass Index) 30.62 kg/m2 Kashmir [facility] [place] 11-24-2020 08:21-0500 Body weight 83.46 kg Kashmir [facility] [place] 11-24-2020 08:21-0500 Height 165.1 cm Kashmir [facility] [place] 11-16-2020 08:02-0500 BMI (Body Mass Index) 30.67 kg/m2 [facility] [place] 11-16-2020 08:02-0500 Body Temperature 97.39 [degF] [facility] [place] 11-16-2020 08:02-0500 Body weight 83.6 kg Kashmir Jiffd[employer] [place] , [place] 11-16-2020 08:02-0500 BP Diastolic 92 mm[Hg] Kashmir [facility] [place] , [place] 11-16-2020 08:02-0500 BP Systolic 133 mm[Hg] Kashmir [facility] [place] 11-16-2020 08:02-0500 Height 165.1 cm Kashmir Fenton [facility] , [place] 11-16-2020 08:02-0500 Pulse (Heart Rate) 98 /min Kashmir Fenton [facility], [place] 11-16-2020 08:02-0500 Pulse Oximetry 95 % Kashmir Fenton [facility] , [place] 11-16-2020 08:02-0500 Respiratory Rate 22 /min Kashmir Fenton [facility] Encounters Encounter Date Encounter Type Care Provider Facility Start: 07-20-2024 End: 07-20-2024 ambulatory COCO ARGUELLO Not Available Start: 07-02-2024 End: 07-02-2024 Patient encounter procedure DO Narayan Gagnon Work Phone: [facility] [place] Work Phone: Start: 07-02-2024 End: 07-02-2024 ambulatory DO Narayan Gagnon Work Phone: [facility] Work Phone: Start: 06-24-2024 End: 06-24-2024 ambulatory DO Narayan Gagnon Work Phone: [facility] Work Phone: Start: 06-24-2024 End: 06-24-2024 Patient encounter procedure DO Narayan Ball Work Phone: [facility] Work Phone: Start: 06-11-2024 Non-patient / Non-visit DO Chapin zuletaelizabeth Gagnon Work Phone: [facility] Work Phone: Start: 06-11-2024 End: 06-11-2024 ambulatory JU HOFFMANN Not Available Start: 05-15-2024 End: 05-15-2024 Patient encounter procedure DO Narayan Ball Work Phone: [facility] [place] Work Phone: Start: 05-15-2024 End: 05-15-2024 ambulatory DO Narayan Ball Work Phone: [facility] Work Phone: Start: 05-07-2024 End: 05-07-2024 ambulatory [facility]ASHMIR [facility] Start: 05-07-2024 End: 05-07-2024 Subsequent hospital visit by physician Kashmir Kelly DPM Work Phone: [facility] Start: 05-01-2024 End: 05-05-2024 ambulatory NARAYAN [facility] Start: 05-01-2024 End: 05-05-2024 Subsequent hospital visit by physician Mth Pre Admit Test Rm [facility] PRE ADMIT Start: 04-16-2024 End: 04-16-2024 ambulatory JU HOFFMANN Not Available Start: 04-13-2024 Non-patient / Non-visit DO Chapin Gagnon Work Phone: [facility] Work Phone: Start: 03-12-2024 End: 03-12-2024 ambulatory [facility] Work Phone: Start: 03-12-2024 End: 03-12-2024 Patient encounter procedure [facility] Work Phone: Start: 01-23-2024 End: 01-23-2024 ambulatory Narayan Gagnon Other [employer] Other Start: 01-23-2024 Telephone encounter [facility]ayan Gagnon [facility] Start: 01-23-2024 End: 01-23-2024 Patient encounter procedure [facility] Work Phone: Start: 01-21-2024 Non-patient / Non-visit [facility] Work Phone: Start: 01-03-2024 End: 01-03-2024 ambulatory Narayan Gagnon Other [employer] Other Start: 01-03-2024 Telephone encounter Narayan MOJICA [facility] Start: 12-23-2023 End: 12-23-2023 ambulatory Narayan Gagnon Other [employer] Other Start: 12-23-2023 Telephone encounter [facility]ayan [facility]ICA [facility] Start: 12-18-2023 End: 12-18-2023 ambulatory Narayan Gagnon Other [employer] Other Start: 12-18-2023 Telephone encounter Narayan MOJICA [facility] Start: 12-09-2023 End: 12-09-2023 ambulatory Narayan Gagnon Other [employer] Other Start: 12-09-2023 Telephone encounter Narayan MOJICA [facility] Start: 12-03-2023 End: 12-03-2023 ambulatory MALINA BALLARD Not Available Start: 11-13-2023 End: 11-13-2023 ambulatory Narayan Gagnon Other [employer] Other Start: 11-13-2023 Telephone encounter Narayan MOJICA [facility] Start: 09-25-2023 End: 09-25-2023 ambulatory Narayan Gagnon Other [employer] Other Start: 09-25-2023 Telephone encounter Narayan MOJICA [facility] Start: 09-20-2023 End: 09-20-2023 ambulatory Narayan Gagnon Other [employer] Other Start: 09-20-2023 Patient encounter procedure Narayan Gagnon [facility] Start: 09-05-2023 End: 09-05-2023 ambulatory Narayan Gagnon Other [employer] Other Start: 09-05-2023 Telephone encounter Narayan MOJICA [facility] Start: 09-04-2023 End: 09-04-2023 ambulatory Narayan Gagnon Other [employer] Other Start: 09-04-2023 Telephone encounter Narayan Gagnon [facility] Start: 09-03-2023 End: 09-03-2023 ambulatory Narayan Ball Other [employer] Other Start: 09-03-2023 Telephone encounter Narayan [facility] Start: 08-26-2023 End: 08-26-2023 ambulatory Naaryan Ball Other [employer] Other Start: 08-26-2023 Telephone encounter Narayan [facility] Start: 08-20-2023 End: 08-20-2023 ambulatory Narayan [facility] Other [employer] Other Start: 08-20-2023 Telephone encounter Narayan [facility] Start: 07-16-2023 End: 07-16-2023 ambulatory Narayan Ball Other [employer] Other Start: 07-16-2023 Telephone encounter Narayan [facility] Start: 07-09-2023 End: 07-09-2023 ambulatory Narayan Ball Other [employer] Other Start: 07-09-2023 Telephone encounter Narayan [facility] Start: 07-08-2023 End: 07-08-2023 ambulatory Narayan [facility] Other [employer] Other Start: 07-08-2023 Telephone encounter Narayan [facility] Start: 05-01-2023 End: 05-01-2023 ambulatory Narayan Ball Other [employer] Other Start: 05-01-2023 Telephone encounter Narayan [facility] Start: 03-19-2023 End: 03-19-2023 ambulatory Narayan [facility] Other [employer] Other Start: 03-19-2023 Telephone encounter Narayan [facility] Start: 03-18-2023 End: 03-18-2023 ambulatory Narayan Ball Other [employer] Other Start: 03-18-2023 Telephone encounter Narayan Gagnon [facility] Start: 03-14-2023 End: 03-15-[address] NARAYAN GAGNON Facility:[facility] Start: 03-07-2023 End: 03-07-2023 ambulatory Narayan Gagnon Other [employer] Other Start: 03-07-2023 Telephone encounter Narayan [facility] Start: 03-04-2023 End: 03-04-2023 ambulatory Narayan Gagnon Other [employer] Other Start: 03-04-2023 Office outpatient vi sit 25 minutes Narayan Gagnon [facility] Start: 02-19-2023 End: 02-19-2023 ambulatory Narayan Gagnon Other [employer] Other Start: 02-19-2023 Telephone encounter Narayan MOJICA [facility] Start: 02-15-2023 End: 02-15-2023 ambulatory Narayan Gagnon Other [employer] Other Start: 02-15-2023 Telephone encounter Narayan MOJICA [facility] Start: 02-13-2023 ambulatory HUANG JHONNY Facility: [facility] Start: 02-11-2023 End: 02-11-2023 ambulatory Narayan Gagnon Other [employer] Other Start: 02-11-2023 Telephone encounter Narayan Gagnon [facility] Start: 02-08-2023 Office outpatient vi sit 25 minutes Narayan Gagnon [facility] Start: 02-08-2023 Telephone encounter Narayan Jose [facility] Start: 02-08-2023 End: 02-09-[address] STACY LAWSON [employer] Other Start: 01-02-2023 End: 01-03-2023 ambulatory Sylvester FITZPATRICK Facility:[facility] Start: 01-02-2023 End: 01-02-2023 Patient encounter procedure Sylvester FITZPATRICK [facility] Start: 12-24-2022 End: 12-25-2022 ambulatory Sue Qureshi Facility:[facility] Start: 12-20-2022 End: 03-01-[address] MALINA BALLARD Facility: Start: 11-01-2022 End: 11-02-2022 ambulatory Sue Jose Alfredo Kiera Facility:[facility] Start: 11-01-2022 End: 11-02-2022 ambulatory Sue Jose Alfredo Kiera Facility:[facility] Start: 11-01-2022 End: 11-01-2022 Patient encounter procedure Sue Veliz Kiera [facility] Start: 11-01-2022 End: 11-02-[address] NARAYAN GAGNON Facility:[facility] Start: 09-28-2022 ambulatory [facility] Start: 09-23-2022 Pre-procedure evalua tion check Narayan Gagnon Other [employer] Other Start: 09-20-2022 End: 09-21-2022 ambulatory Lesly Baeza Facility:[facility] Start: 09-20-2022 End: 09-20-2022 Patient encounter procedure Lesly Baeza [facility] Start: 06-25-2022 End: 06-25-2022 Emergency department patient visit Narayan Gagnon DO Work Phone: [facility] ED Comment on above: Acute upper respirat ory infection (Primary Dx) Start: 06-15-2022 End: 06-16-[address] NARAYAN GAGNON Facility:[facility] Start: 05-17-2022 End: 05-18-2022 Evaluation and management of inpatient VAHID MOODY [facility] Start: 05-16-2022 End: 05-17-2022 Emergency department patient visit Narayan Gagnon DO Work Phone: [facility] ED Comment on above: Suicidal ideation (P rimary Dx); Homicidal ideations Start: 01-26-2022 End: 01-27-2022 ambulatory Malina Ballard Facility:[facility] Start: 01-22-2022 End: 01-22-2022 ambulatory Malina Ballard Facility:[facility] Start: 11-23-2021 End: 11-27-2021 Subsequent hospital visit by physician Kashmir Kelly DPM Work Phone: [facility] Start: 11-24-2020 End: 11-24-2020 Subsequent hospital visit by physician Kashmir Kelly Work Phone: [facility] Start: 11-17-2020 End: 11-21-2020 Subsequent hospital visit by physician Vane Covid19 Pat Screening Schedule [facility] PRE ADMIT Comment on above: Preoperative testing Start: 11-17-2020 End: 11-19-2020 Subsequent hospital visit by physician Vane Mri Scanner [facility] MRI Comment on above: Nonintractable heada cristal, unspecified chronicity pattern, unspecified headache type; 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 Start: 02-28-2018 End: 03-01-2018 Ambulatory DEFAULT PHYSICIAN Facility:[facility] Procedures Date Procedure Procedure Detail Performing Clinician Start: 07-02-2024 CT angiography of head DO Narayan Ball Work Phone: Start: 07-02-2024 CT angiography of neck vessels DO Benjam in Ball Work Phone: Start: 05-15-2024 MRI of head DO Narayan Ball Work Phone: Start: 05-07-2024 GLUCOSE, WHOLE BLOOD Kashmir Kelly DPM Work Phone: Start: 05-01-2024 Basic metabolic panel calcium total Kashmir Kelly DPM Work Phone: Start: 05-01-2024 Ecg routine ecg w/least 12 lds i&r only Kashmir Kelly DPM Work Phone: Start: 01-02-2023 Colonoscopy Sylvester FITZPATRICK Start: 01-02-2023 Esophagogastroduodenoscopy Sylvester FITZPATRICK Start: 06-25-2022 Radiologic exam chest single view Atul Jose Alfredo Aguilar PA-C Work Phone: Start: 06-25-2022 COVID-19, RAPID Ebony Menezes Rosado DO Work Phone: Start: 05-16-2022 Radiologic exam chest single view Sona Pepper [employer] TE[employer]ACH Work Phone: Start: 05-16-2022 Assay of acetaminophen Abi Pepper [employer]ER [employer] TE[employer] COACH Work Phone: Start: 05-16-2022 Assay of ethanol Abi Pepper [employer]ER [employer] TE[employer] COACH Work Phone: Start: 05-16-2022 Assay of salicylate Abilaurle Pepper [employer] - CUSTOMER CARE TEAM COACH Work Phone: Start: 05-16-2022 Comprehensive metabolic panel Abi Pepper [employer] CUSTOMER CARE TEAM COACH Work Phone: Start: 05-16-2022 Drug tst prsmv instrmnt chem analyzers pr date Abi Pepper [employer]ER [employer] TE[employer] COACH Work Phone: Start: 05-16-2022 COVID-19, RAPID Abi Pepper [employer]UST[employer]ER [employer] TE[employer] COACH Work Phone: Start: 05-16-2022 Ecg routine ecg w/least 12 lds i&r only Abi Pepper [employer]ER [employer] TE[employer] COACH Work Phone: Start: 01-22-2022 Total knee replacement Lesly Baeza Start: 11-23-2021 Ecg routine ecg w/least 12 lds i&r only Kashmir Kelly DPM Work Phone: Start: 11-23-2021 Basic metabolic panel calcium total Benj gilman Ball DO Work Phone: Start: 11-23-2021 Urnls dip stick/tablet reagent auto microscopy Narayan Gagnon DO Work Phone: Start: 11-24-2020 GLUCOSE, WHOLE BLOOD Kashmir W Consolo Work Phone: Start: 11-17-2020 COVID-19 Eric Jay Work Phone: Start: 11-17-2020 Mri brain brain stem w/o w/contrast material Bipin Y Mariano Work Phone: Start: 11-16-2020 Ecg routine ecg w/least 12 lds i&r only Kashmir W Consolo Work Phone: Start: 11-16-2020 EKG REPORT Hpf Scanning Start: 11-16-2020 Basic metabolic panel calcium total Kashmir W Consolo Work Phone: Start: 11-16-2020 Blood count complete automated Kashmir W Co nsolo Work Phone: Start: 07-28-2020 Hydrocelectomy Lesly Timmis Start: 02-25-2018 Preoperative cardiovascular examination Narayan Gagnon Other Arthroscopy of knee Lesly T immis Bilateral inguinal hernia repair Lesly Timmis Decompression of median nerve Lesly Timmis Excision of cholesteatoma Hi jose manuel Timmis History of repair of umbilical hernia Lesly Timmis Nasal polypectomy Lesly González mis Removal of toenail Lesly Ti mmis Surgical procedure o n eye proper using laser Lesly Timmis Plan of Treatment Date Care Activity Detail Author Start: 09-03-2026 DTaP/Tdap/Td vaccine (4 - Td or Tdap) DTaP/Tdap/Td vaccine (4 - Td or Tdap) [facility] Start: 05-01-2025 GFR test (Diabetes, CKD 3-4, OR last GFR 15-59) GFR test (Diabetes, CKD 3-4, OR last GFR 15-59) [facility] Start: 05-07-2024 End: 05-07-2024 Admission to same day surgery center 05/07/2024 8:30 AM EDT - 05/07/2024 9:15 AM EDT Surgery [facility] [address] [place] [id number] Kashmir Kelly, DPM [address] [place] [address] NAILBED EXCISION MATRIXECTOMY- DIGITS 1,4,5 [facility] OR Comment on above: NAILBED EXCISION MAT RIXECTOMY- DIGITS 1,4,5 Start: 05-07-2024 End: 05-07-2024 Anesthesia consultation 05/07/2024 8:30 AM EDT Anesthesia Event [facility] [address] [place] [id number] Janna Love, [employer] - [employer]OMOTIONS MANAGER [address] [facility] [address] [place] [address] [facility] Start: 05-07-2024 End: 05-07-2024 Excision nail matrix permanent removal [facility] Start: 05-07-2024 Subsequent hospital visit by physician 05/07/2024 8:30 AM EDT Hospital Encounter [facility] [address] [place] [id number] Kashmir Kelly, DPM [address] [place] [address] [facility] Start: 2024 DTaP/Tdap/Td vaccine (2 - Td or Tdap) DTaP/Tdap/Td vaccine (2 - Td or Tdap) [facility] Start: 2024 DTaP/Tdap/Td vaccine (2 - Td) DTaP/Tdap/Td vaccine (2 - Td) [facility] [place] Start: 10-21-2023 Annual Wellness Visi t (Medicare) Annual Wellness Visit (Medicare) [facility] Start: 07-26-2023 COVID-19 Vaccine ( season) COVID-19 Vaccine ( season) [facility] Start: 2023 Shingles vaccine (1 of 2) Shingles vaccine (1 of 2) [facility] Start: 11-23-2022 Creatinine measurement Creatinine mo [facility] Start: 11-23-2022 Hemoglobin A1c measurement A1C test (Diabetic or Prediabetic) [facility] Start: 11-23-2022 Potassium monitoring Potassium monit [facility] Start: 07-26-2022 Influenza vaccination [facility] Start: 02-21-2022 Hemoglobin A1c measurement A1C test (Diabetic or Prediabetic) [facility] Start: 11-30-2021 End: 11-30-2021 Admission to same day surgery center 11/30/2021 Surgery IP Unit Kashmir Kelly, GARCIAM [address] [place] [address] NAILBED EXCISION MATRIXECTOMY-HALLUX [facility] Comment on above: NAILBED EXCISION MAT RIXECTOMY-HALLUX Start: 11-30-2021 End: 11-30-2021 Excision nail matrix permanent removal NAILBED EXCISION MATRIXECTOMY CHRONIC INGROWNS 11/30/2021 8:00 AM [facility] Start: 11-30-2021 Subsequent hospital visit by physician 11/30/2021 Hospital Encounter IP Unit Kashmir Kelly, MARYANNE [address] [place] [address] [facility] Start: 11-16-2021 Creatinine measurement Creatinine mo [facility], [place] Start: 11-16-2021 Potassium monitoring Potassium monit [facility], [place] Start: 10-01-2021 COVID-19 Vaccine (3 - Booster for Pfizer series) COVID-19 Vaccine (3 - Booster for Pfizer series) [facility] Start: 08-31-2021 COVID-19 Vaccine (3 - Booster for Pfizer series) COVID-19 Vaccine (3 - Booster for Pfizer series) [facility] Start: 07-26-2021 Influenza vaccination Flu vaccine (# 1) [facility] Start: 11-24-2020 End: 11-24-2020 Hospital Encounter [facility] Comment on above: FOOT LESION BIOPSY E XCISION, PLANTAR Start: 11-17-2020 Annual Wellness Visi t (AWV) Annual Wellness Visit (AWV) [place], [place] Start: 07-26-2020 Influenza vaccination Flu vaccine (# 1) [place] Start: 2018 Screening for malign ant neoplasm of colon [facility] Start: 2013 Diabetes screen Diabetes screen [place], [place] Start: 2008 Diabetes screen Diabetes screen [facility] Start: 08-06-2002 Pneumococcal 0-64 ye ars Vaccine (2 of 2 - PCV) Pneumococcal 0-64 years Vaccine (2 of 2 - PCV) [facility] Start: 1992 Hepatitis B vaccine (1 of 3 - Risk 3-dose series) Hepatitis B vaccine (1 of 3 - Risk 3-dose series) [facility] Start: 1991 Diabetic retinal exam Diabetic retin al exam [facility] Start: 1991 Glaucoma screening Diabetic retinal exam [facility] Start: 1991 Hepatitis C screening Hepatitis C sc reen [facility] Start: 1991 Urine screening for protein [facility] Start: 1988 HIV screening HIV screen [facility] Start: 1985 Depression Monitoring Depression Mon itoring [facility] Start: 1985 Depression Screen Depression Screen [facility] Start: 1983 Diabetic foot examination Diabetic foot exam [facility] Start: 1983 Lipid panel [facility] Start: 1979 Pneumococcal 0-64 ye ars Vaccine (1 - PCV) Pneumococcal 0-64 years Vaccine (1 - PCV) [facility] Start: 1973 Hepatitis B vaccine (1 of 3 - 3-dose series) Hepatitis B vaccine (1 of 3 - 3-dose series) [facility] Start: 1973 Hepatitis C screening Hepatitis C sc reen [employer] End: 11-23-2021 Culture, Urine [employer] Work Phone: Comment on above: Once for 1 Occurrenc es starting 11/23/2021 until 11/23/2021 End: 05-07-2024 Glucose [Mass/volume] in Serum or Plasma POCT Glucose Point of Care Testing Routine One Time for 1 Occurrences starting 05/07/2024 until 05/07/2024 [employer]OK[employer] FARIASJASMEET [employer] Work Phone: Comment on above: One Time for 1 Occur rences starting 05/07/2024 until 05/07/2024 End: 11-24-2020 POCT Glucose POCT Glucose Point of Care Testing STAT One Time for 1 Occurrences starting 11/24/2020 until 11/24/2020 [facility] [place] Comment on above: One Time for 1 Occur rences starting 11/24/2020 until 11/24/2020 Surgical Pathology Surgical Path ology Lab Routine Release Upon Ordering for 1 Occurrences starting 11/24/2020 [facility] [place] Comment on above: Release Upon Orderin g for 1 Occurrences starting 11/24/2020 Immunizations Immunization Date Immunization Notes Care Provider [facility] 09-20-2023 influenza, injectabl e, quadrivalent, preservative free Narayan Gagnon Other [facility] 09-20-2022 influenza virus vaccine, split virus (incl. purified surface antigen) Narayan Gagnon Other [employer] Other 09-20-2022 influenza virus vaccine, unspecified formulation Sue Qureshi [facility] 03-31-2021 SARS-CoV-2 (COVID-19 ) mRNA BNT-162b2 vax Sue Qureshi [facility] 12-17-2020 SARS-CoV-2 (COVID-19 ) mRNA BNT-162b2 vax Sue Qureshi [facility] Comment on above: Result Comment: 2021: [id number] 08-26-2020 influenza virus vaccine, split virus (incl. purified surface antigen) Narayan Gagnon Other [facility] [employer] Other 08-26-2020 influenza virus vaccine, unspecified formulation [facility] 09-07-2019 influenza virus vaccine, unspecified formulation Sue Kiera [facility] 09-01-2019 influenza virus vaccine, split virus (incl. purified surface antigen) Narayan Gagnon Other [employer] Other 09-01-2019 influenza virus vaccine, unspecified formulation [facility] 08-15-2018 influenza virus vaccine, split virus (incl. purified surface antigen) Narayan Gagnon Other [email or web address] [facility] [employer] Other 08-15-2018 influenza virus vaccine, unspecified formulation [facility] 08-13-2018 influenza virus vaccine, split virus (incl. purified surface antigen) Narayan Gagnon Other [employer] Other 08-13-2018 influenza virus vaccine, unspecified formulation Sue Kiera [facility] 09-03-2016 influenza virus vaccine, unspecified formulation Suecarlyn MathisKiera [facility] 09-03-2016 tetanus and diphther ia toxoids, adsorbed, preservative free, for adult use (5 Lf of tetanus toxoid and 2 Lf of diphtheria toxoid) Narayan Gagnon Other [facility] 09-14-2014 tetanus and diphther ia toxoids, adsorbed, preservative free, for adult use (5 Lf of tetanus toxoid and 2 Lf of diphtheria toxoid) Narayan Gagnon Other [facility] 2014 tetanus toxoid, redu buddy diphtheria toxoid, and acellular pertussis vaccine, adsorbed Sue Qureshi [facility] 09-17-2013 tetanus and diphther ia toxoids, adsorbed, preservative free, for adult use (5 Lf of tetanus toxoid and 2 Lf of diphtheria toxoid) Narayan Gagnon Other [facility] 08-06-2001 pneumococcal polysaccharide vaccine, 23 valent Narayan Gagnon Other [facility] Payers Date Payer Category Payer Self-pay [id number] 1975 Unknown [id number] 1973 Unknown [id number] 2.16.840.1.996750.3.579.2.727 1973 Unknown [id number] 2.16.840.1.363655.3.579.2.727 1973 Unknown [id number] 2.16.840.1.124261.3.579.2.727 1973 Unknown [id number] 2.16.840.1.660856.3.579.2.727 1973 Unknown [id number] 2.16.840.1.318855.3.579.2.727 1973 Unknown [id number] 2.16.840.1.963818.3.579.2.727 1973 Unknown [id number] 2.16.840.1.101716.3.579.2.727 1973 Unknown [id number] 2.16.840.1.357445.3.579.2.727 1973 Unknown [id number] 2.16.840.1.460444.3.579.2.593 1973 Unknown [id number] 2.16.840.1.343383.3.579.2.593 1973 Unknown [id number] 2.16.840.1.084468.3.579.2.593 1973 Unknown [id number] 2.16.840.1.154325.3.579.2.593 1973 Unknown [id number] 2.16.840.1.444715.3.579.2.593 1973 Unknown [id number] 2.16.840.1.163255.3.579.2.593 1973 Unknown [id number] 2.16.840.1.687424.3.579.2.593 1973 Unknown [id number] 2.16.840.1.436375.3.579.2.593 1973 Unknown [id number] 2.16.840.1.887964.3.579.2.173 1973 Unknown [id number] 2.16.840.1.642122.3.579.2.173 1973 Unknown [id number] 2.16.840.1.972423.3.579.2.1259 1973 Unknown [id number] 2.16.840.1.112499.3.579.2.1259 1973 Unknown [id number] 2.16.840.1.336014.3.579.2.1259 1973 Unknown [id number] 2.16.840.1.964756.3.579.2.1259 1973 Unknown [id number] 2.16.840.1.888718.3.579.2.1259 1961 Medicaid [id number] [id number].3.6786 [id number] 1961 Medicare [id number] [id number] 71.315 Medicare Medicare Psych-IP Part A [id number] Unknown Unknown [id number] 2.16.840.1.465101.3.579.2.531 Unknown [id number] 2.16.840.1.846482.3.579.2.531 Social History Date Type Detail Facility Start: 07-30-2014 End: 11-16-2020 Tobacco smoking status NHIS Former smoker [place], [place] Start: 07-30-2014 End: 11-16-2020 Tobacco use and exposure Never used [facility] [employer] [place] Start: 11-16-2020 End: 05-07-2024 Alcohol intake Current non-drinker of alcohol (finding) [place], [place] Start: 1975 Sex Assigned At Not on file M [place], [place] Start: 05-06-2022 End: 05-16-2022 Exposure to SARS-CoV-2 (event) Not sure [place] Start: 05-17-2022 End: 05-18-2022 History SDOH Alcohol Frequency 1 [employer] Work Phone: History of tobacco use Current smoker [employer] Phone: Start: 05-18-2022 History SDOH Alcohol Std Drinks 98 [employer] Phone: Start: 06-15-2022 End: 06-25-2022 Exposure to SARS-CoV-2 (event) Yes [employer] Phone: Start: 04-30-2018 End: 10-28-2020 Tobacco smoking status Never smoked tobacco (finding) [facility] Start: 05-18-2022 End: 05-01-2024 Sex Assigned At Male [facility] Tobacco smoking status Never [facility] Start: 1975 Sex Assigned At Male [facility] Start: 05-18-2022 End: 05-01-2024 History of Social function [employer] How often to you hav e a drink containing alcohol? Never [employer] Medical Equipment Procedure Code Equipment Code Equipment Origin al Text Equipment Identifier Dates KNEE TOTAL ARTHROPLASTY Malina Ballard DO 01/22/22 Non Biological Knee R [id number] FDA Start: 01-22-2022 Pen [place] 31G X [address] art: 07-16-2023 Blood Sugar Diag nostic (True Metrix Glucose Test Strip) strip Start: 01-21-2024 Lancets (Trueplu s Lancets) 33 gauge misc Start: 01-23-2024 Blood Sugar Diag nostic (True Metrix Glucose Test Strip) strip Start: 01-21-2024 End: 01-21-2024 Lancets Start: 01-21-2024 End: 01-21-2024 Lancets Start: 01-21-2024 End: 01-21-2024 Lancets Start: 01-21-2024 End: 01-23-2024 Blood Sugar Diag nostic (True Metrix Glucose Test Strip) strip Start: 01-21-2024 Lancets Start: 04-13-2024 Lancets (Thin La ncets) 26 gauge misc Start: 04-13-2024 Blood Sugar Diag nostic (True Metrix Glucose Test Strip) strip Start: 01-21-2024 End: 01-21-2024 Lancets Start: 01-21-2024 End: 01-21-2024 Lancets Start: 01-21-2024 End: 01-21-2024 Lancets Start: 01-21-2024 End: 01-23-2024 Lancets Start: 04-08-2024 End: 04-13-2024 Lancets (Trueplu s Lancets) 33 gauge misc Start: 01-23-2024 End: 04-08-2024 Blood Sugar Diag nostic (True Metrix Glucose Test Strip) strip Start: 01-21-2024 Lancets Start: 04-13-2024 Lancets (Thin La ncets) 26 gauge misc Start: 04-13-2024 Blood Sugar Diag nostic (True Metrix Glucose Test Strip) strip Start: 01-21-2024 End: 01-21-2024 Lancets Start: 01-21-2024 End: 01-21-2024 Lancets Start: 01-21-2024 End: 01-21-2024 Lancets Start: 01-21-2024 End: 01-23-2024 Lancets Start: 04-08-2024 End: 04-13-2024 Lancets (Trueplu s Lancets) [facility] gauge [facility] Start: 01-23-2024 End: 04-08-2024 Blood Sugar Diag nostic (True Metrix Glucose Test Strip) strip Start: 01-21-2024 Lancets Start: 04-13-2024 Lancets (Thin La ncets) 26 gauge [facility] [place] Start: 04-13-2024 Blood Sugar Diag nostic (True Metrix Glucose Test Strip) strip Start: 01-21-2024 End: 01-21-2024 Lancets Start: 01-21-2024 End: 01-21-2024 Lancets Start: 01-21-2024 End: 01-21-2024 Lancets Start: 01-21-2024 End: 01-23-2024 Lancets Start: 04-08-2024 End: 04-13-2024 Lancets (Trueplu s Lancets) 33 gauge [facility] [place] Start: 01-23-2024 End: 04-08-2024 Functional Status Date Assessment Result Facility 01-02-2023 Functional Status N/A [facility] 11-01-2022 Functional Status N/A [facility] Clinical Notes 11-23-2021 to 05-07-2024 Ju Paulino RN - 05/07/2024 10:03 AM EDTDischaCordelia Zamarripa RN - 05/01/2024 10:00 AM Cordelia Greer RN - 05/01/2024 10:00 AM EDT Note Date & Type Note Facility 05-07-2024 History of Presen t illness Narrative Discharge Criteria Inpatients must meet Criteria 1 through 7. All other patients are either YES or N/A. If a NO is chosen then Anesthesia or Surgeon must be notified. 1. Minimum 30 minutes after last dose of sedative medication. Yes 2. Systolic BP between 90 - 160. Diastolic BP between 60 - 90. Yes 3. Pulse between 60 - 120 Yes 4. Respirations between 8 - 25. Yes 5. SpO2 92% - 100%. Yes 6. Able to cough and swallow or return to baseline function. Yes 7. Alert and oriented or return to baseline mental status. Yes 8. Demonstrates controlled, coordinated movements, ambulates with steady gait, or return to baseline activity function. Yes 9. Minimal or no pain or nausea, or at a level tolerable and acceptable to patient. Yes 10. Takes and retains oral fluids as allowed. Yes 11. Procedural / perioperative site stable. Minimal or no bleeding. Yes 12. If GI endoscopy procedure, minimal or no abdominal distention or passing flatus. N/A 13. Written discharge instructions and emergency telephone number provided. Yes 14. Accompanied by a responsible adult. Yes documented in this encounter [facility] 05-07-2024 [facility] Discharg e instructions Ju Paulino RN - 05/07/2024 9:39 AM EDT SAME DAY SURGERY DISCHARGE INSTRUCTIONS 1. Do not drive or operate hazardous machinery for 24 hours. 2. Do not make important personal or business decisions for 24 hours. 3. Do not drink alcoholic beverages for 24 hours. 4. Do not smoke tobacco products for 24 hours. 5. Eat light foods (Jell-O, soups, etc....) and drink plenty of fluids (water, Sprite, etc...) up to 8 glasses per day, as you can tolerate. 6. If your bandages become soaked with bright red blood, place another dressing pad over your bandages. (DO NOT remove original bandage.) Call your surgeon for further instructions. A small amount of bright red blood is to be expected. 7. Limit your activities for 24 hours. Do not engage in heavy work until your surgeon gives you permission. 8. Report the following signs or any questions regarding your physical condition to your surgeon immediately: Excessive swelling of, or around the wound area. Redness. Temperature of 100 degrees (F) or above. Excessive pain. 9. Call your surgeon for any questions regarding your surgery. 10. Do not soak in lakes, ponds, etc. until healed. SOAKING INSTRUCTIONS Using 4-5 tablespoons Epsom salts with 1/4 cup White Vinegar in warm water, soak for 10-15 minutes. Dry well, then apply Neosporin and bandage. Soak once a day for 14 days. documented in this encounter [facility] 05-01-2024 History of Presen t illness Narrative Pt's mother instructed on the pre-operative, intra-operative, and post-operative process. Medication instructions and pre operative instruction sheet reviewed. Pt to be NPO after midnight and may take Verapamil, Divalproex and Clonazepam with a small sip of water AM of procedure. CHG skin prep instructions reviewed.EKG completed. [facility] Preadmission Testing Name: Hari Thornton : 1975 Patient (home) [phone] (work) Procedure Right foot matriectomies Date of Procedure: 05/07/24 Surgeon: Dr. Kelly Ht: 167.6 cm (5' 6 ) Wt: 80.7 kg (178 lb) Wt method: Stated Allergies: Allergies Allergen Reactions Vancomycin Anaphylaxis Morphine Hives Pcn [Penicillins] Hives Peanut allergy: No There were no vitals filed for this visit. No LMP for male patient. Do you take blood thinners? [x] Yes [] No Instructed to stop blood thinners prior to procedure? [x] Yes [] No [] N/A Do you have sleep apnea? [x] Yes [] No Instructed to bring CPAP machine? [] Yes [x] No [] N/A Do you have acid reflux ? [x] Yes [] No Do you have hiatal hernia? [] Yes [x] No Do you ever experience motion sickness? [] Yes [x] No Have you had a respiratory infection or sore throat in last 4 weeks before surgery? [] Yes [x] No Do you have poorly controlled asthma or COPD? [] Yes [x] No Do you have a history of angina in the last month or symptomatic arrhythmia? [] Yes [x] No Do you have significant central nervous system disease? [] Yes [x] No Have you had an EKG, labs, or chest xray in last 12 months? If yes provide copies to anesthesia [] Yes [x] No [] Lab [] EKG [] CXR Have you had a stress test? [] Yes [x] No When/where: Was it normal? [] Yes [] No Do you or your family have a history of Malignant Hyperthermia? [] Yes [x] No Patient instructed on: [x] NPO Status [x] Meds to Take Day of Surgery [x] Ride Home [x]No Jewelry/Contact Lenses/Dentures day of surgery [x] Chlorhexidene Patient instructed on the pre-operative, intra-operative, and post-operative process? Yes Medication instructions reviewed with patient? Yes Pre operative instruction sheet reviewed and given to patient in PAT? Yes documented in this encounter [facility] 11-13-2023 Evaluation note Encounter Date Diagnosis Assessment Notes Oct, Irritable bowel syndrome with diarrhea (ICD-10 - K58.0) [employer] Other 10-27-2023 Evaluation note* Encounter Date Diagnosis Assessment Notes Treatment Notes Treatment Clinical Notes Aug, Medicare annual wellness visit, subsequent (ICD-10 - Z00.00) Personalized health advice was given to the beneficiary including a written plan for screenings discussed and provided. Advanced care planning reviewed and/or information given as requested. Additional counseling was provided here today in regards to, [ ]. The above visit was performed by [ ], under direct supervision of [ ]. Document reviewed and amended by provider signed below. Aug, Type 2 diabetes mellitus with hyperglycemia, without long-term current use of insulin (ICD-10 - E11.65) This patient is following a comprehensive diabetic treatment plan. They are checking their feet daily for calluses and nonhealing ulcers. They are being seen for yearly dilated eye examinations. Goals: SBP less than 130, LDL less than 100, FBS less than 140, A1C less than 7%. They are checking their BS daily, will which are reviewed at the office visit. Continue regular routine monitoring of A1C,] Microalbumin, Dilated eye exam and Foot exam Aug, Primary hypertension (ICD-10 - I10) This patient is instructed to consume a healthy, low-fat, low-salt diet. They are also encouraged to continue exercise to achieve/maintain a normal BMI. Aug, Hyperlipidemia, mixed (ICD-10 - E78.2) Instructed on diet and exercise with continued statin therapy.Discussed the beneficial effects of lowering cholesterol in reducing the risk for cerebrovascular and cardiovascular disease. Aug, Obstructive sleep apnea (ICD-10 - G47.33) This patient is aware of the benefits associated with KOKI: With continued use, the patient reduces the risk for PR, CVA, HTN, cardiac dysrhythmias and sudden cardiac deaths.The patient is also aware of the association between KOKI and morning headaches, daytime somnolence, fatigue and obesity. Noncompliance Aug, Irritable bowel syndrome with both constipation and diarrhea (ICD-10 - K58.2) High fiber diet, push fluids. UTD w/ CRC screening Aug, KASHIF (generalized anxiety disorder) (ICD-10 - F41.1) Healthy diet, keep active, exercise Instructed to take medication as prescribed f/u Psych Aug, Mild episode of recurrent major depressive disorder (ICD-10 - F33.0) Healthy diet and keep active. f/u Psych Aug, High risk medication use (ICD-10 - Z79.899) Check labs: CBC Aug, Fatigue, unspecified type (ICD-10 - R53.83) Check labs: CBC, TSH Aug, Screening PSA (prostate specific antigen) (ICD-10 - Z12.5) Yearly PSA [employer] Other 10-12-2023 Evaluation note* Encounter Date Diagnosis Assessment Notes Treatment Notes Treatment Clinical Notes Aug, Hyperlipidemia, mixed (ICD-10 - E78.2) Aug, Essential hypertension (ICD-10 - I10) [employer] Other 10-10-2023 Evaluation note* Encounter Date Diagnosis Assessment Notes Treatment Notes Treatment Clinical Notes Aug, Essential hypertension (ICD-10 - I10) Aug, Hyperlipidemia, mixed (ICD-10 - E78.2) [employer] Other 08-15-2023 Evaluation note* Encounter Date Diagnosis Assessment Notes Treatment Notes Treatment Clinical Notes Jun, Type 2 diabetes mellitus with hyperglycemia, without long-term current use of insulin (ICD-10 - E11.65) [employer] Other 04-25-2023 Evaluation note* Encounter Date Diagnosis Assessment Notes Treatment Notes Treatment Clinical Notes Feb, Type 2 diabetes mellitus with hyperglycemia, without long-term current use of insulin (ICD-10 - E11.65) [employer] Other 04-10-2023 Evaluation note* Encounter Date Diagnosis Assessment Notes Treatment Notes Treatment Clinical Notes Feb, Essential hypertension (ICD-10 - I10) This patient is instructed to consume a healthy, low-fat, low-salt diet. They are also encouraged to continue exercise to achieve/maintain a normal BMI. Feb, Type 2 diabetes mellitus with hyperglycemia, without long-term current use of insulin (ICD-10 - E11.65) This patient is following a comprehensive diabetic treatment plan. They are checking their feet daily for calluses and nonhealing ulcers. They are being seen for yearly dilated eye examinations. Goals: SBP less than 130, LDL less than 100, FBS less than 140, AC and A1C less than 7%. They are checking their BS daily, will which are reviewed at the office visit. Feb, Hyperlipidemia, mixed (ICD-10 - E78.2) Feb, Obstructive sleep apnea (ICD-10 - G47.33) This patient is aware of the benefits associated with KOKI: With continued use, the patient reduces the risk for PR, CVA, HTN, cardiac dysrhythmias and sudden cardiac deaths.The patient is also aware of the association between KOKI and morning headaches, daytime somnolence, fatigue and obesity, which also has been improved with continued use.The patient is compliant with treatment, wearing the equipment every night for greater than 4 hours.The patient is instructed to continue use of the CPAP for KOKI treatment. Compliance questionable Feb, Right flank pain (ICD-10 - R10.9) Locates at base of ribs. Likely MSK in origin: heat/ice and lidocaine patches US liver and kidney to r/o hepatic mass, renal mass, renal stone Feb, Intermittent asthma without complication (ICD-10 - J45.20) Feb, KASHIF (generalized anxiety disorder) (ICD-10 - F41.1) Healthy diet, keep active, f/u Psych Feb, MCI (mild cognitive impairment) (ICD-10 - G31.84) Family to assist w/ care. Feb, Rosacea (ICD-10 - L71.9) Avoid sun, spicy foods. Begin Metrocream f/u Dermatology [employer] Other 03-28-2023 Evaluation note* Encounter Date Diagnosis Assessment Notes Treatment Notes Treatment Clinical Notes Jan, Essential hypertension (ICD-10 - I10) Jan, Hyperlipidemia, mixed (ICD-10 - E78.2) [employer] Other 03-28-2023 Evaluation note* Encounter Date Diagnosis Assessment Notes Treatment Notes Treatment Clinical Notes Jan, Essential hypertension (ICD-10 - I10) [employer] Other 2023 Evaluation note* Encounter Date Diagnosis Assessment Notes Treatment Notes Treatment Clinical Notes Jan, Essential hypertension (ICD-10 - I10) Jan, Hyperlipidemia, mixed (ICD-10 - E78.2) [employer] Other 03-17-2023 Evaluation note* Encounter Date Diagnosis Assessment Notes Treatment Notes Treatment Clinical Notes Jan, Chronic fatigue (ICD-10 - R53.82) [employer] Other 03-17-2023 Evaluation note* Encounter Date Diagnosis Assessment Notes Treatment Notes Treatment Clinical Notes Jan, Essential hypertension (ICD-10 - I10) This patient is following a comprehensive diabetic treatment plan. They are checking their feet daily for calluses and nonhealing ulcers. They are being seen for yearly dilated eye examinations. Goals: SBP less than 130, LDL less than 100, FBS less than 140, AC and A1C less than 7%. They are checking their BS daily, will which are reviewed at the office visit. A1C: due ] Jan, Type 2 diabetes mellitus with hyperglycemia, without long-term current use of insulin (ICD-10 - E11.65) This patient is following a comprehensive diabetic treatment plan. They are checking their feet daily for calluses and nonhealing ulcers. They are being seen for yearly dilated eye examinations. Goals: SBP less than 130, LDL less than 100, FBS less than 140, AC and A1C less than 7%. They are checking their BS daily, will which are reviewed at the office visit. A1C: due Holding GLP-1 at this time w/ update next week May be adjusting dose of GLP -1 due to adverse effects. Jan, Intermittent palpitations (ICD-10 - R00.2) Avoid stimulants, hydrate, exercise. Jan, Hyperlipidemia, mixed (ICD-10 - E78.2) Diet and exercise with continued statin therapy. Jan, MCI (mild cognitive impairment) (ICD-10 - G31.84) Parents assisting w/ IADL, ADL. Requires 24 hours care Jan, Obstructive sleep apnea (ICD-10 - G47.33) Compliance poor, may be contributing to depression and fatigue. Will discuss advantages w/ chronic symptoms of fatigue, depression etc as well as lobsterman benefit w/ reducing risk for AF, CVA, PR Jan, Moderate episode of recurrent major depressive disorder (ICD-10 - F33.1) Healthy diet, increase activity, consistent sleep routine. f/u Psych Jan, Diarrhea, unspecified type (ICD-10 - R19.7) Likely diet and medication related. Await labs to r/o hepatic, renal involvement. May need to taper GLP-1 Avoid milk, juices and sauce. Increase yogurt, bananas and cheese [employer] Other 02-09-2023 Note [id number]:[address] [place] [address] 01-02-2023 NoteEndoscopy Care After Procedure Please read the instructions outlined below and refer to this sheet in the next few weeks. These discharge instructions provide you with general information on caring for yourself after you leave thehospital. Your doctor may also give you specific instructions. While your treatment has been planned according to the most current medical practices available, unavoidable complications occasionally occur. If you have any problems or questions after discharge, please call your doctor. ACTIVITY ? You may resume your regular activity but move at a slower pace for the next 24 hours. ? Take frequent rest periods for the next 24 hours. ? Walking will help expel (get rid of) the air and reduce the bloated feeling in your abdomen. ? No driving for 24 hours (because of the anesthesia (medicine) used during the test). ? You may shower. ? Do not sign any important legal documents or operate any machinery for 24 hours (because of the anesthesia used during the test). NUTRITION ? Drink plenty of fluids. ? You may resume your normal diet. ? Begin with a light meal and progress to your normal diet. ? Avoid alcoholic beverages for 24 hours or as instructed by your caregiver. MEDICATIONS ? You may resume your normal medications unless your caregiver tells you otherwise. WHAT YOU CAN EXPECT TODAY ? You may experience abdominal discomfort such as a feeling of fullness or ?gas? pains. FOLLOW-UP ? Your doctor will discuss the results of your test with you. seek immediate medical attention if any of the following occur: ? Excessive nausea (feeling sick to your stomach) and/or vomiting. ? Severe abdominal pain and distention (swelling). ? Trouble swallowing. ? Temperature over 100 F (37.8? C). ? Rectal bleeding or vomiting of blood. Document Released: 06/25/2005 Document Re-Released: 05/05/2007 ExitCare? Patient Information ?2009 [employer]. Colonoscopy Care After Surgery Please read the instructions outlined below and refer to this sheet in the next few weeks. These discharge instructions provide you with general information on caring for yourself [facility] Your doctor may also give you specific instructions. While your treatment has been planned according to the most current medical practices available, unavoidable complications occasionally occur. If you have any problems or questions after discharge, please call your doctor. ACTIVITY You may resume your regular activity, but move at a slower pace for the next 24 hours. Take frequent rest periods for the next 24 hours. Walking will help get rid of the air and reduce the bloated feeling in your abdomen (belly). No driving for 24 hours (because of the anesthesia (medicine) used during the test). You may shower. Do not sign any important legal documents or operate any machinery for 24 hours (because of the anesthesia used during the test). NUTRITION Drink plenty of fluids. You may resume your normal diet as instructed by your doctor. Begin with a light meal and progress to your normal diet. Heavy or fried foods are harder to digestand may make you feel nauseated (sick to your stomach). Avoid alcoholic beverages for 24 hours or as instructed. MEDICATIONS You may resume your normal medications unless your doctor tells you otherwise. WHAT YOU CAN EXPECT TODAY Some feelings of bloating in the abdomen. Passage of more gas than usual. Spotting of blood in your stool or on the toilet paper. FOLLOW-UP Your doctor will discuss the results of your test with you. SEEK IMMEDIATE MEDICAL ATTENTION IF: There is more than a spotting of blood in your stool. There is abdominal distention (your abdomen is swollen). There is vomiting. You have a temperature over 101.5 F. There is abdominal pain or discomfort that is severe or gets worse throughout the day. Gastroenterology Esophageal Dilatation Esophageal dilatation, also called esophageal dilation, is a procedure to widen or open (dilate) a blocked or narrowed part of the esophagus. The esophagus is the part of the body that moves food andliquid from the mouth to the stomach. You may need this procedure if: ? You have a buildup of scar tissue in your esophagus that makes it difficult, painful, or impossible to swallow. This can be caused by gastroesophageal reflux disease (GERD). ? You have cancer of the esophagus. ? There is a problem with how food moves through your esophagus. In some cases, you may need this procedure repeated at a later time to dilate the esophagus gradually. Tell a health care provider about: ? Any allergies you have. ? All medicines you are taking, including vitamins, herbs, eye drops, creams, and ikvo-ozs-rgcsecb medicines. ? Any problems you or family members have had with anesthetic medicines. ? Any blood disorders you have. ? Any surgeries you have had. ? Any medical conditions you have. ? (more content not included)...[facility]02-08-2023 Hospital Discharge instructions Patient Education 01/02/2023 12:59:37 Endoscopy, Care After Procedure [facility] ([facility]UST[facility]) Endoscopy Care After Procedure Please read the instructions outlined below and refer to this sheet in the next few weeks. These discharge instructions provide you with general information on caring for yourself [facility] Your doctor may also give you specific instructions. While your treatment has been planned according to the most current medical practices available, unavoidable complications occasionally occur. If you have any problems or questions after discharge, please call your doctor. ACTIVITY You may resume your regular activity but move at a slower pace for the next 24 hours. Take frequent rest periods for the next 24 hours. Walking will help expel (get rid of) the air and reduce the bloated feeling in your abdomen. No driving for 24 hours (because of the anesthesia (medicine) used during the test). You may shower. Do not sign any important legal documents or operate any machinery for 24 hours (because of the anesthesia used during the test). NUTRITION Drink plenty of fluids. You may resume your normal diet. Begin with a light meal and progress to your normal diet. Avoid alcoholic beverages for 24 hours or as instructed by your caregiver. MEDICATIONS You may resume your normal medications unless your caregiver tells you otherwise. WHAT YOU CAN EXPECT TODAY You may experience abdominal discomfort such as a feeling of fullness or gas pains. FOLLOW-UP Your doctor will discuss the results of your test with you. SEEK IMMEDIATE MEDICAL ATTENTION IF ANY OF THE FOLLOWING OCCUR: Excessive nausea (feeling sick to your stomach) and/or vomiting. Severe abdominal pain and distention (swelling). Trouble swallowing. Temperature over 100 F (37.8 C). Rectal bleeding or vomiting of blood. Document Released: 06/25/2005 Document Re-Released: 05/05/2007 [employer] Patient Information [employer]. 01/02/2023 12:59:37 Esophageal Dilatation Esophageal Dilatation Esophageal dilatation, also called esophageal dilation, is a procedure to widen or open (dilate) a blocked or narrowed part of the esophagus. The esophagus is the part of the body that moves food andliquid from the mouth to the stomach. You may need this procedure if: You have a buildup of scar tissue in your esophagus that makes it difficult, painful, or impossibleto swallow. This can be caused by gastroesophageal reflux disease (GERD). You have cancer of the esophagus. There is a problem with how food moves through your esophagus. In some cases, you may need this procedure repeated at a later time to dilate the esophagus gradually. Tell a health care provider about: Any allergies you have. All medicines you are taking, including vitamins, herbs, eye drops, creams, and ziio-lqb-kfiifwl medicines. Any problems you or family members have had with anesthetic medicines. Any blood disorders you have. Any surgeries you have had. Any medical conditions you have. Any antibiotic medicines you are required to take before dental procedures. Whether you are or may be . What are the risks? Generally, this is a safe procedure. However, problems may occur, including: Bleeding due to a tear in the lining of the esophagus. A hole (perforation) in the esophagus. What happens before the procedure? Follow instructions from your health care provider about eating or drinking restrictions. Ask your health care provider about changing or stopping your regular medicines. This is especiallyimportant if you are taking diabetes medicines or blood thinners. Plan to have someone take you home from the hospital or clinic. Plan to have a responsible adult care for you for at least 24 hours after you leave the hospital orclinic. This is important. What happens during the procedure? You may be given a medicine to help you relax (sedative). A numbing medicine may be sprayed into the back of your throat, or you may gargle the medicine. Your health care provider may perform the dilatation using various surgical instruments, such as: ?Simple dilators. This instrument is carefully placed in the esophagus to stretch it. ?Guided wire bougies. This involves using an endoscope to insert a wire into the esophagus. A dilator is passed over this wire to enlarge the esophagus. Then the wire is removed. ?Balloon dilators. An endoscope with a small balloon at the end is inserted into the esophagus. Theballoon is inflated to stretch the esophagus and open it up. The procedure may vary among health care providers and hospitals. What happens after the procedure? Your blood pressure, heart rate, breathing rate, and blood oxygen level will be monitored until themedicines you were given have worn off. Your throat may feel slightly sore and numb. This will improve slowly over time. You will not be allowed to eat or drink until your throat is no longer numb. When you are able to drink, urinate, and sit on the edge of the bed without nausea or dizziness, you may be able to return home. Follow these instructions at home: Take fjnq-euf-tclkmdo and prescription medicines only as told by your health care provider. Do not drive for 24 hours if you were given a sedative during your procedure. You should have a responsible adult with you for 24 hours after the procedure. Follow instructions from your health care provider about any eating or drinking restrictions. Do not use any products that contain nicotine or tobacco, such as cigarettes and e-cigarettes. If you need help quitting, ask your health care provider. Keep all follow-up visits as told by your health care provider. This is important. Get help right away if you: Have a fever. Have chest pain. Have pain that is not relieved by medication. Have trouble breathing. Have trouble swallowing. Vomit blood. Summary Esophageal dilatation, also called esophageal dilation, is a procedure to widen or open (dilate) a blocked or narrowed part of the esophagus. Plan to have someone take you home from the hospital or clinic. For this procedure, a numbing medicine may be sprayed into the back of your throat, or you may gargle the medicine. Do not drive for 24 hours if you were given a sedative during your procedure. This information is not intended to replace advice given to you by your health care provider. Make sure you discuss any questions you have with your health care provider. Document Released: 01/02/2007 Document Revised: 10/24/2018 Document Reviewed: 09/16/2018 [employer] Patient Education 2020 [email or web address]. 01/02/2023 12:59:37 Colonoscopy, Care After Surgery [facility] (CUSTOM) Colonoscopy Care After Surgery Please read the instructions outlined below and refer to this sheet in the next few weeks. These discharge instructions provide you with general information on caring for yourself after you leave thespital. Your doctor may also give you specific instructions. While your treatment has been planned according to the most current medical practices available, unavoidable complications occasionally occur. If you have any problems or questions after discharge, please call your doctor. ACTIVITY You may resume your regular activity, but move at a slower pace for the next 24 hours. Take frequent rest periods for the next 24 hours. Walking will help get rid of the air and reduce the bloated feeling in your abdomen (belly). No driving for 24 hours (because of the anesthesia (medicine) used during the test). You may shower. Do not sign any important legal documents or operate any machinery for 24 hours (because of the anesthesia used during the test). NUTRITION Drink plenty of fluids. You may resume your normal diet as instructed by your doctor. Begin with a light meal and progress to your normal diet. Heavy or fried foods are harder to digestand may make you feel nauseated (sick to your stomach). Avoid alcoholic beverages for 24 hours or as instructed. MEDICATIONS You may resume your normal medications unless your doctor tells you otherwise. WHAT YOU CAN EXPECT TODAY Some feelings of bloating in the abdomen. Passage of more gas than usual. Spotting of blood in your stool or on the toilet paper. FOLLOW-UP Your doctor will discuss the results of your test with you. SEEK IMMEDIATE MEDICAL ATTENTION IF: There is more than a spotting of blood in your stool. There is abdominal distention (your abdomen is swollen). There is vomiting. You have a temperature over 101.5 F. There is abdominal pain or discomfort that is severe or gets worse throughout the day. 01/02/2023 12:59:37 Diverticulitis, Yfow-id-Vrpo Diverticulitis Diverticulitis is when small pockets in your large intestine (colon) get infected or swollen. This causes stomach pain and watery poop (diarrhea). These pouches are called diverticula. They form in people who have a condition called diverticulosis. Follow these instructions at home: Medicines Take rvoe-hsb-hzmljjp and prescription medicines only as told by your doctor. These include: ?Antibiotics. ?Pain medicines. ?Fiber pills. ?Probiotics. ?Stool softeners. Do not drive or use heavy machinery while taking prescription pain medicine. If you were prescribed an antibiotic, take it as told. Do not stop taking it even if you feel better. General instructions Follow a diet as told by your doctor. When you feel better, your doctor may tell you to change your diet. You may need to eat a lot of fiber. Fiber makes it easier to poop (have bowel movements). Healthy foods with fiber include: ?Berries. ?Beans. ?Lentils. ?Green vegetables. Exercise 3 or more times a week. Aim for 30 minutes each time. Exercise enough to sweat and make your heart beat faster. Keep all follow-up visits as told. This is important. You may need to have an exam of the large intestine. This is called a colonoscopy. Contact a doctor if: Your pain does not get better. You have a hard time eating or drinking. You are not pooping like normal. Get help right away if: Your pain gets worse. Your problems do not get better. Your problems get worse very fast. You have a fever. You throw up (vomit) more than one time. You have poop that is: ?Bloody. ?Black. ?Tarry. Summary Diverticulitis is when small pockets in your large intestine (colon) get infected or swollen. Take medicines only as told by your doctor. Follow a diet as told by your doctor. This information is not intended to replace advice given to you by your health care provider. Make sure you discuss any questions you have with your health care provider. Document Released: 04/29/2009 Document Revised: 10/24/2018 Document Reviewed: 11/28/2017 [employer] Patient Education 2020 [email or web address]. 01/02/2023 12:59:37 Colon Polyps Colon Polyps Polyps are tissue growths inside the body. Polyps can grow in many places, including the large intestine (colon). A polyp may be a round bump or a mushroom-shaped growth. You could have one polyp or several. Most colon polyps are noncancerous (benign). However, some colon polyps can become cancerous over time. Finding and removing the polyps early can help prevent this. What are the causes? The exact cause of colon polyps is not known. What increases the risk? You are more likely to develop this condition if you: Have a family history of colon cancer or colon polyps. Are older than 50 or older than 45 if you are . Have inflammatory bowel disease, such as ulcerative colitis or Crohn's disease. Have certain hereditary conditions, such as: ?Familial adenomatous polyposis. ?Mckinney syndrome. ?Turcot syndrome. ?Peutz Jeghers syndrome. Are overweight. Smoke cigarettes. Do not get enough exercise. Drink too much alcohol. Eat a diet that is high in fat and red meat and low in fiber. Had childhood cancer that was treated with abdominal radiation. What are the signs or symptoms? Most polyps do not cause symptoms. If you have symptoms, they may include: Blood coming from your rectum when having a bowel movement. Blood in your stool. The stool may look dark red or black. Abdominal pain. A change in bowel habits, such as constipation or diarrhea. How is this diagnosed? This condition is diagnosed with a colonoscopy. This is a procedure in which a lighted, flexible scope is inserted into the anus and then passed into the colon to examine the area. Polyps are sometimes found when a colonoscopy is done as part of routine cancer screening tests. How is this treated? Treatment for this condition involves removing any polyps that are found. Most polyps can be removed during a colonoscopy. Those polyps will then be tested for cancer. Additional treatment may be needed depending on the results of testing. Follow these instructions at home: Lifestyle Maintain a healthy weight, or lose weight if recommended by your health care provider. Exercise every day or as told by your health care provider. Do not use any products that contain nicotine or tobacco, such as cigarettes and e-cigarettes. If you need help quitting, ask your health care provider. If you drink alcohol, limit how much you have: ?0 1 drink a day for women. ? 0 2 drinks a day for men. Be aware of how much alcohol is in your drink. In the [place] one drink equals one 12 oz bottle of beer (355 mL), one 5 oz glass of wine (148 mL), or one 1 oz shot of hard liquor (44 mL). Eating and drinking Eat foods that are high in fiber, such as fruits, vegetables, and whole grains. Eat foods that are high in calcium and vitamin D, such as milk, cheese, yogurt, eggs, liver, fish, and broccoli. Limit foods that are high in fat, such as fried foods and desserts. Limit the amount of red meat and processed meat you eat, such as hot dogs, sausage, [place], and lunch meats. General instructions Keep all follow-up visits as told by your health care provider. This is important. ?This includes having regularly scheduled colonoscopies. ?Talk to your health care provider about when you need a colonoscopy. Contact a health care provider if: You have new or worsening bleeding during a bowel movement. You have new or increased blood in your stool. You have a change in bowel habits. You lose weight for no known reason. Summary Polyps are tissue growths inside the body. Polyps can grow in many places, including the colon. Most colon polyps are noncancerous (benign), but some can become cancerous over time. This condition is diagnosed with a colonoscopy. Treatment for this condition involves removing any polyps that are found. Most polyps can be removed during a colonoscopy. This information is not intended to replace advice given to you by your health care provider. Make sure you discuss any questions you have with your health care provider. Document Released: 08/07/2005 Document Revised: 02/26/2019 Document Reviewed: 02/26/2019 [employer] Patient Education 2020 [email or web address]. 01/02/2023 12:59:37 Hemorrhoids, Lgrc-oi-Gwlu Hemorrhoids Hemorrhoids are swollen veins that may develop: In the butt (rectum). These are called internal hemorrhoids. Around the opening of the butt (anus). These are called external hemorrhoids. Hemorrhoids can cause pain, itching, or bleeding. Most of the time, they do not cause serious problems. They usually get better with diet changes, lifestyle changes, and other home treatments. What are the causes? This condition may be caused by: Having trouble pooping (constipation). Pushing hard (straining) to poop. Watery poop (diarrhea). . Being very overweight (obese). Sitting for long periods of time. Heavy lifting or other activity that causes you to strain. Anal sex. Riding a bike for a long period of time. What are the signs or symptoms? Symptoms of this condition include: Pain. Itching or soreness in the butt. Bleeding from the butt. Leaking poop. Swelling in the area. One or more lumps around the opening of your butt. How is this diagnosed? A doctor can often diagnose this condition by looking at the affected area. The doctor may also: Do an exam that involves feeling the area with a gloved hand (digital rectal exam). Examine the area inside your butt using a small tube (anoscope). Order blood tests. This may be done if you have lost a lot of blood. Have you get a test that involves looking inside the colon using a flexible tube with a camera on the end (sigmoidoscopy or colonoscopy). How is this treated? This condition can usually be treated at home. Your doctor may tell you to change what you eat, make lifestyle changes, or try home treatments. If these do not help, procedures can be done to remove the hemorrhoids or make them smaller. These may involve: Placing rubber bands at the base of the hemorrhoids to cut off their blood supply. Injecting medicine into the hemorrhoids to shrink them. Shining a type of light energy onto the hemorrhoids to cause them to fall off. Doing surgery to remove the hemorrhoids or cut off their blood supply. Follow these instructions at home: Eating and drinking Eat foods that have a lot of fiber in them. These include whole grains, beans, nuts, fruits, and vegetables. Ask your doctor about taking products that have added fiber (fibersupplements). Reduce the amount of fat in your diet. You can do this by: ?Eating low-fat dairy products. ?Eating less red meat. ?Avoiding processed foods. Drink enough fluid to keep your pee (urine) pale yellow. Managing pain and swelling Take a warm-water bath (sitz bath) for 20 minutes to ease pain. Do this 3 4 times a day. You may dothis in a bathtub or using a portable sitz bath that fits over the toilet. If told, put ice on the painful area. It may be helpful to use ice between your warm baths. ?Put ice in a plastic bag. ?Place a towel between your skin and the bag. ?Leave the ice on for 20 minutes, 2 3 times a day. General instructions Take vuza-eqj-vmboocz and prescription medicines only as told by your doctor. ?Medicated creams and medicines may be used as told. Exercise often. Ask your doctor how much and what kind of exercise is best for you. Go to the bathroom when you have the urge to poop. Do not wait. Avoid pushing too hard when you poop. Keep your butt dry and clean. Use wet toilet paper or moist towelettes after pooping. Do not sit on the toilet for a long time. Keep all follow-up visits as told by your doctor. This is important. Contact a doctor if you: Have pain and swelling that do not get better with treatment or medicine. Have trouble pooping. Cannot poop. Have pain or swelling outside the area of the hemorrhoids. Get help right away if you have: Bleeding that will not stop. Summary Hemorrhoids are swollen veins in the butt or around the opening of the butt. They can cause pain, itching, or bleeding. Eat foods that have a lot of fiber in them. These include whole grains, beans, nuts, fruits, and vegetables. Take a warm-water bath (sitz bath) for 20 minutes to ease pain. Do this 3 4 times a day. This information is not intended to replace advice given to you by your health care provider. Make sure you discuss any questions you have with your health care provider. Document Released: 08/20/2009 Document Revised: 11/19/2019 Document Reviewed: 04/02/2019 [employer] Patient Education 2020 [employer] Follow Up Care 11/01/2022 13:05:57 With:Sylvester FITZPATRICK Address: [address] [place] [address] Business (1) When: Unknown Comments:Call for any problems. Office will call for follow up appt [facility]02-08-2023 Evaluation + Plan noteExtracted from: Title:ANES Post-operative Note Author:Keyon Ramey MD Date:01/02/23 Plan Transfer/Discharge: Transfer/Discharge Discharge when meets criteria ( To home ). Extracted from: Title:ANES Pre-operative Note Author:Kaleb Ramey MD Date:01/02/23 Plan [place] [employer] (ASA) physical status classification: Class III. Anesthetic Preoperative Plan: Anesthesia Monitored anethesia care. [facility]12-08-2022 Hospital Discharge instructions Patient Education 11/01/2022 12:01:38 Colonoscopy, Adult Colonoscopy, Adult A colonoscopy is an exam to look at the entire large intestine. During the exam, a lubricated, flexible tube that has a camera on the end of it is inserted into the anus and then passed into the rectum, colon, and other parts of the large intestine. You may have a colonoscopy as a part of normal colorectal screening or if you have certain symptoms, such as: Lack of red blood cells (anemia). Diarrhea that does not go away. Abdominal pain. Blood in your stool (feces). A colonoscopy can help screen for and diagnose medical problems, including: Tumors. Polyps. Inflammation. Areas of bleeding. Tell a health care provider about: Any allergies you have. All medicines you are taking, including vitamins, herbs, eye drops, creams, and urgg-gvz-meourkz medicines. Any problems you or family members have had with anesthetic medicines. Any blood disorders you have. Any surgeries you have had. Any medical conditions you have. Any problems you have had passing stool. What are the risks? Generally, this is a safe procedure. However, problems may occur, including: Bleeding. A tear in the intestine. A reaction to medicines given during the exam. Infection (rare). What happens before the procedure? Eating and drinking restrictions Follow instructions from your health care provider about eating and drinking, which may include: A few days before the procedure follow a low-fiber diet. Avoid nuts, seeds, dried fruit, raw fruits, and vegetables. 1 3 days before the procedure follow a clear liquid diet. Drink only clear liquids, such as clear broth or bouillon, black coffee or tea, clear juice, clear soft drinks or sports drinks, gelatin dessert, and popsicles. Avoid any liquids that contain red or purple dye. On the day of the procedure do not eat or drink anything starting 2 hours before the procedure, or within the time period that your health care provider recommends. Up to 2 hours before the procedure, you may continue to drink clear liquids, such as water or clear fruit juice. Bowel prep If you were prescribed an oral bowel prep to clean out your colon: Take it as told by your health care provider. Starting the day before your procedure, you will needto drink a large amount of medicated liquid. The liquid will cause you to have multiple loose stools until your stool is almost clear or light green. If your skin or anus gets irritated from diarrhea, you may use these to relieve the irritation: ?Medicated wipes, such as adult wet wipes with aloe and vitamin E. ?A skin-soothing product like petroleum jelly. If you vomit while drinking the bowel prep, take a break for up to 60 minutes and then begin the bowel prep again. If vomiting continues and you cannot take the bowel prep without vomiting, call yourhealth care provider. To clean out your colon, you may also be given: ?Laxative medicines. ?Instructions about how to use an enema. General instructions Ask your health care provider about: ?Changing or stopping your regular medicines or supplements. This is especially important if you are taking iron supplements, diabetes medicines, or blood thinners. ?Taking medicines such as aspirin and ibuprofen. These medicines can thin your blood. Do not take these medicines before the procedure if your health care provider tells you not to. Plan to have someone take you home from the hospital or clinic. What happens during the procedure? An IV may be inserted into one of your veins. You will be given medicine to help you relax (sedative). To reduce your risk of infection: ?Your health care team will wash or sanitize their hands. ?Your anal area will be washed with soap. You will be asked to lie on your side with your knees bent. Your health care provider will lubricate a long, thin, flexible tube. The tube will have a camera and a light on the end. The tube will be inserted into your anus. The tube will be gently eased through your rectum and colon. Air will be delivered into your colon to keep it open. You may feel some pressure or cramping. The camera will be used to take images during the procedure. A small tissue sample may be removed to be examined under a microscope (biopsy). If small polyps are found, your health care provider may remove them and have them checked for cancer cells. When the exam is done, the tube will be removed. The procedure may vary among health care providers and hospitals. What happens after the procedure? Your blood pressure, heart rate, breathing rate, and blood oxygen level will be monitored until themedicines you were given have worn off. Do not drive for 24 hours after the exam. You may have a small amount of blood in your stool. You may pass gas and have mild abdominal cramping or bloating due to the air that was used to inflate your colon during the exam. It is up to you to get the results of your procedure. Ask your health care provider, or the department performing the procedure, when your results will be ready. Summary A colonoscopy is an exam to look at the entire large intestine. During a colonoscopy, a lubricated, flexible tube with a camera on the end of it is inserted into the anus and then passed into the colon and other parts of the large intestine. Follow instructions from your health care provider about eating and drinking before the procedure. If you were prescribed an oral bowel prep to clean out your colon, take it as told by your health care provider. After your procedure, your blood pressure, heart rate, breathing rate, and blood oxygen level will be monitored until the medicines you were given have worn off. This information is not intended to replace advice given to you by your health care provider. Make sure you discuss any questions you have with your health care provider. Document Released: 11/08/2001 Document Revised: 09/03/2018 Document Reviewed: 01/22/2017 [employer] Patient Education 2020 [email or web address]. Follow Up Care 09/28/2022 10:36:04 With:Sue Qureshi CNP Address: When:1 to 2 weeks Comments:Following colonoscopy. [facility] 03-22-2022 Note [id number]:127[facility] 02-13-2022 [id number]:127[facility]12-30-2021 History of Present illness Narrative* Gabriella Grimaldo RN - 11/23/2021 9:00 AM EST Anesthesia to review pt's EKG pre op * Gabriella Grimaldo RN - 11/23/2021 9:00 AM EST [facility] Preadmission Testing Name: Hari Thornton : 1975 Patient (home) [phone] (work) Procedure AKUA HALLUX MATRIECTOMY Date of Procedure: 11/30/21 Surgeon: Kashmir Kelly DPM Ht: 5' 6 (167.6 cm) Wt: 180 lb 6.4 oz (81.8 kg) Wt method: Actual Allergies: Allergies Allergen Reactions Vancomycin Anaphylaxis Morphine Hives Pcn [Penicillins] Hives Peanut allergy: No Latex Allergy Screening Tool Have you ever had a reaction to or been told by a physician that you have an allergy to latex or natural rubber?: No Vitals: 11/23/21 0902 BP: (!) 150/84 Pulse: 102 Resp: 20 Temp: 97.9 F (36.6 C) SpO2: 96% No LMP for male patient. Do you take blood thinners? [x] Yes [] No Instructed to stop blood thinners prior to procedure? [x] Yes [] No [] N/A Do you have sleep apnea? [] Yes [x] No Instructed to bring CPAP machine? [] Yes [] No [x] N/A Do you have acid reflux ? [x] Yes [] No Do you have hiatal hernia? [] Yes [x] No Do you ever experience motion sickness? [] Yes [x] No Have you had a respiratory infection or sore throat in last 4 weeks before surgery? [] Yes [x] No Do you have poorly controlled asthma or COPD? [] Yes [x] No Do you have a history of angina in the last month or symptomatic arrhythmia? [] Yes [x] No Do you have significant central nervous system disease? [] Yes [x] No Have you had an EKG, labs, or chest xray in last 12 months? If yes provide copies to anesthesia [] Yes [x] No [] Lab [] EKG [] CXR Have you had a stress test? [] Yes [x] No When/where: Was it normal? [] Yes [] No Do you or your family have a history of Malignant Hyperthermia? [] Yes [x] No Patient instructed on: [x] NPO Status [x] Meds to Take Day of Surgery [x] Ride Home [x]No Jewelry/Contact Lenses/Dentures day of surgery [x] Chlorhexidene PAT Call/Visit Questions Person Interviewed: PATIENT Surgery Time Verified: Yes Surgery Location Verified: Yes Patient Language: FRENCH Medical History Reviewed: Yes NPO Status Reinforced: Yes Ride and Caregiver Arranged: Yes Ride Caregiver Provider: TAMMY Pre-AdmissionTesting Checklist Patient has been to this health system before?: Yes Does patient refuse blood?: No Healthcare Directive: No, patient does not have an advance directive for healthcare treatment Shipping Hand needed: No Patient can read and write?: No History given by: Patient Providing self care at home?: Yes Discharge transport (for same day patients): Family Patient instructed on the pre-operative, intra-operative, and post-operative process? Yes Medication instructions reviewed with patient? Yes Pre operative instruction sheet reviewed and given to patient in PAT? Yes * Gabriella Grimaldo RN - 11/23/2021 9:00 AM EST Patient instructed on the pre-operative, intra-operative, and post-operative process. Patient instructed on NPO status. Medication instructions and pre operative instruction sheet reviewed and given to patient in PAT. CHG skin prep instructions reviewed with patient. [facility] [employer] Work Phone: evaluation + Plan note No data available for this section [facility] Future Appointments Appointment Date:01/02/2023 12:40:00 PM Scheduled Provider: Location:[facility] Appointment Type:Surgery FT Future Scheduled Tests Laboratory* Fecal WBC Lactoferrin 11/01/22 * Giardia lamblia, Direct Detection EIA 11/01/22 * O & P Exam, Routine 11/01/22 * Clostridium Difficile PCR 11/01/22 * Enteric Panel by PCR 11/01/22 [facility] Evaluation note* Diagnosis Suicidal ideation- Primary Homicidal ideations Homicidal ideation documented in this encounter [facility] [employer] Work Phone: evaluation note* Diagnosis Acute upper respiratory infection- Primary Acute upper respiratory infections of unspecified site documented in this encounter [facility] [employer] Work Phone: evaluation noteNo [employer] Other Evaluation note* Diagnosis Onset Date Resolution Status Constipation due to slow transit acute Controlled type 2 diabetes mellitus with hyperglycemia acute Depression, major, recurrent, mild acute Essential hypertension acute Obstructive sleep apnea acut e Seborrheic dermatitis of scalp acute Stanley syndrome acute Cellulitis of finger of right hand [facility] Work Phone: Evaluation note* Diagnosis Onset Date Resolution Status Cellulitis of finger of right hand [facility] Work Phone: Evaluation note* Diagnosis Onset Date Resolution Status Constipation due to slow transit acute Controlled type 2 diabetes mellitus with hyperglycemia acute Depression, major, recurrent, mild acute Essential hypertension acute Obstructive sleep apnea acut e Stanley syndrome [facility] Work Phone: Evaluation note* Diagnosis Onset Date Resolution Status Controlled type 2 diabetes mellitus with hyperglycemia acute Depression, major, recurrent, mild acute Diarrhea acute Essential hypertension acute Obstructive sleep apnea acut e Stanley syndrome [facility] Work Phone: History general Narrative - Reported* Type Description Date Medical History Colon polyp Medical History Episodic tension-typ e headache, not intractable Medical History Sensorineural hearing loss Medical History History of total right knee repl acement Medical History Hip pain Medical History Arthritis of knee, left Medical History Depression, major, recurrent, mi ld Medical History Arthritis of both hips Medical History Essential tremor Medical History KASHIF (generalized anxiety disorde r) Medical History Hydrocele, left Medical History Arthritis of both knees Medical History DIVERTICULOSIS OF RECTOSIGMOID Medical History Obstructive sleep apnea Medical History Stanley syndrome Medical History Intermittent asthma without comp lication Medical History Obesity (BMI 30-39.9) Medical History MCI (mild cognitive impairment) Medical History Hyperlipidemia, mixed Medical History Benign localized hyp erplasia of prostate with urinary retention Medical History Essential hypertension Medical History Seborrheic dermatitis of scalp Medical History Primary insomnia Medical History Intermittent palpitations Medical History Controlled type 2 di abetes mellitus with hyperglycemia, without long-term current use of insulin Surgical History colonoscopy Surgical History EGD 12/2022 Surgical History LEFT KNEE 1999 Surgical History ARTHROSCOPY OF KNEE 1999,2003,2 005 Surgical History EXCISION LIPOMA 2004 Surgical History LEFT KNEE SCOPE 2003 Surgical History ARTHROSCOPY ACL RECONSTRUCTION 2005 Surgical History RIGHT KNEE SURGERY 2004 Surgical History RIGHT TYPANOPLASTY 2008 Surgical History B/L INGUINAL HERNIA Surgical History LEFT MYRINGOTOMY, T TUBE 2011 Surgical History RECURRENT INGUINAL HERNIA Surgical History RIGHT TOTAL KNEE ARTHROPLASTY Surgical History HYDROCELECTOMY, ADULT 2019 Surgical History MYRINGOTOMY OF LEFT TYMPANIC MEMBRANE WITH LOCAL ANESTHESIA Hospitalization History SEE SURGICAL HX [employer] Other Hiszekf general Narrative - Reported* Type Description Date Medical History Colon polyp Medical History Episodic tension-typ e headache, not intractable Medical History Sensorineural hearing loss Medical History History of total right knee repl acement Medical History Hip pain Medical History Arthritis of knee, left Medical History Depression, major, recurrent, mi ld Medical History Arthritis of both hips Medical History Essential tremor Medical History KASHIF (generalized anxiety disorde r) Medical History Hydrocele, left Medical History Arthritis of both knees Medical History DIVERTICULOSIS OF RECTOSIGMOID Medical History Obstructive sleep apnea Medical History Stanley syndrome Medical History Intermittent asthma without comp lication Medical History Obesity (BMI 30-39.9) Medical History MCI (mild cognitive impairment) Medical History Hyperlipidemia, mixed Medical History Benign localized hyp erplasia of prostate with urinary retention Medical History Essential hypertension Medical History Seborrheic dermatitis of scalp Medical History Primary insomnia Medical History Intermittent palpitations Medical History Controlled type 2 di abetes mellitus with hyperglycemia, without long-term current use of insulin Surgical History colonoscopy 2005,2022 Surgical History EGD 12/2022 Surgical History LEFT KNEE 2000 Surgical History ARTHROSCOPY OF KNEE 1999,2003,2 005 Surgical History EXCISION LIPOMA 2004 Surgical History LEFT KNEE SCOPE 2003 Surgical History ARTHROSCOPY ACL RECONSTRUCTION 2005 Surgical History RIGHT KNEE SURGERY 2004 Surgical History RIGHT TYPANOPLASTY 2008 Surgical History B/L INGUINAL HERNIA Surgical History LEFT MYRINGOTOMY, T TUBE 2011 Surgical History RECURRENT INGUINAL HERNIA Surgical History RIGHT TOTAL KNEE ARTHROPLASTY 2 023 Surgical History HYDROCELECTOMY, ADULT 2019 Surgical History MYRINGOTOMY OF LEFT TYMPANIC MEMBRANE WITH LOCAL ANESTHESIA Hospitalization History SEE SURGICAL HX [employer] Other Hospital Discharge instructions* Attachments The following attachments cannot be sent through Care Everywhere. * URI (Upper Respiratory Infection): Viral (Greenlandic) * Sinus Rinse (Greenlandic) documented in this encounterBON [employer]Energy Phone: Hospital Discharge instructions No data available for this section [facility] No data available for this section [facility] Narrative* Auth/Cert Specialty Diagnoses / Procedures Referred By Alana barragan Referred To Contact Diagnoses Ingrown toenail of both feet CHRONIC INGROWNS Procedures LA REMOVAL OF NAIL BED NAILBED EXCISION MATRIXECTOMY-HALLUX Kashmir Kelly, MARYANNE [address] [place] [address] [employer] [id number] [place] [address] Referral ID Status Reason Start Date Expiration Date Visits Re quested Visits Authorized [id number] 1 1 [employer] Phone: Summary Purpose Family History No Family History Records Found Relationship Condition Age at Onset Recorded Date/T jordyn Not Specified Diabetes mellitus Unknown Relationship Condition Age at Onset Recorded Date/T jordyn mother Diabetes mellitus Unknown Advance Directives No Advanced Directives Records FoundDocuments on File Type Date Recorded 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 Expl anation ACP-Advance Directive ACP-Power of Veneer Supervisor Documents on File Type Date Recorded 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 Expl anation ACP-Advance Directive ACP-Power of Veneer Supervisor Documents on File Type Date Recorded 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 Expl anation ACP-Guardianship 05/22/2022 1:36 PM Latest Code Status on File Code Status Date Activated Date Inactivated Comments Full Code 05/17/2022 10:29 AM 05/18/2022 5:08 PM Advance Directive Response Recorded Date/ Time Advance Directives No April 29 6:50pm Latest Code Status on File Code Status Date Activated Date Inactivated Comments Full Code 05/17/2022 10:29 AM 05/18/2022 5:08 PM Documents on File Type Date Recorded 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 Expl anation ACP-Guardianship 05/22/2022 1:36 PM Latest Code Status on File Code Status Date Activated Date Inactivated Comments Full Code 05/17/2022 10:29 AM 05/18/2022 5:08 PM Assessments Diagnosis Nonintractable headache, unspecified chronicity pattern, unspecified headache type 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 Monocular exotropia with A pattern Alternating exotropia Diplopia Dysfunction of both inferior oblique muscles Diagnosis Preoperative testing Preoperative examination, unspecified History of Present Illness * Gabriella Grimaldo RN - 11/16/2020 8:00 AM EST Anesthesia notified to review the patient's chart pre-operatively. * Gabriella Grimaldo RN - 11/16/2020 8:00 AM EST [facility] Preadmission Testing Name: Hari Thornton : 1975 Patient (home) Procedure EXC LESION LEFT PLANTAR FOOT Date of Procedure: 11/24/20 Surgeon: Kashmir Kelly DPM Ht: 5' 5 (165.1 cm) Wt: 184 lb 4.8 oz (83.6 kg) Wt method: Actual Allergies: Allergies Allergen Reactions Vancomycin Anaphylaxis Morphine Hives Pcn [Penicillins] Hives Peanut allergy: No Latex Allergy Screening Tool Have you ever had a reaction to or been told by a physician that you have an allergy to latex or natural rubber?: No Vitals: 11/16/20 0802 BP: (!) 133/92 Pulse: 98 Resp: 22 Temp: 97.4 F (36.3 C) SpO2: 95% No LMP for male patient. Do you take blood thinners? [x] Yes [] No Instructed to stop blood thinners prior to procedure? [x] Yes [] No [] N/A Do you have sleep apnea? [] Yes [x] No Instructed to bring CPAP machine? [] Yes [] No [x] N/A Do you have acid reflux ? [] Yes [x] No Do you have hiatal hernia? [] Yes [x] No Do you ever experience motion sickness? [] Yes [x] No Have you had a respiratory infection or sore throat in last 4 weeks before surgery? [] Yes [x] No Do you have poorly controlled asthma or COPD? [] Yes [x] No Do you have a history of angina in the last month or symptomatic arrhythmia? [] Yes [x] No Do you have significant central nervous system disease? [] Yes [x] No Have you had an EKG, labs, or chest xray in last 12 months? If yes provide copies to anesthesia [x] Yes [] No [x] Lab [] EKG [] CXR Have you had a stress test? [x] Yes [] No When/where: 2017 Was it normal? [x] Yes [] No Do you or your family have a history of Malignant Hyperthermia? [] Yes [x] No PAT Call/Visit Questions Person Interviewed: PATIENT Surgery Time Verified: Yes Surgery Location Verified: Yes Patient Language: FRENCH Medical History Reviewed: Yes NPO Status Reinforced: Yes Ride and Caregiver Arranged: Yes Ride Caregiver Provider: TEMO Pre-AdmissionTesting Checklist Patient has been to this health system before?: Yes Does patient refuse blood?: No Healthcare Directive: No, patient does not have an advance directive for healthcare treatment Shipping Hand needed: No Patient can read and write?: Yes Bway-pg-Elpt: Does the patient want to have any new prescriptions delivered to bedside prior to discharge?: No History given by: Patient Providing self care at home?: Yes Discharge transport (for same day patients): Family Patient instructed on the pre-operative, intra-operative, and post-operative process? Yes Medication instructions reviewed with patient? Yes Pre operative instruction sheet reviewed and given to patient in PAT? Yes * Gabriella Grimaldo RN - 11/16/2020 8:00 AM EST Patient instructed on the pre-operative, intra-operative, and post-operative process. Patient instructed on NPO status. Medication instructions reviewed with patient. Pre operative instruction sheet reviewed and given to patient in PAT. documented in this encounter* Hilary Schumacher RN - 11/24/2020 11:01 AM EST Discharge instructions given to pt and mother. Pt sitting at bedside, dressing to go home. States some pain when left foot down to get dressed. Surgical shoe on for discharge.Discharge Criteria Inpatients must meet Criteria 1 through 7. All other patients are either YES or N/A. If a NO is chosen then Anesthesia or Surgeon must be notified. 1. Minimum 30 minutes after last dose of sedative medication, minimum 120 minutes after last dose of reversal agent. Yes 2. Systolic BP stable within 20 mmHg for 30 minutes & systolic BP between 90 & 180 or within 10 mmHg of baseline. Yes 3. Pulse between 60 and 100 or within 10 bpm of baseline. Yes 4. Spontaneous respiratory rate >/= 10 per minute. Yes 5. SaO2 >/= 95 or >/= baseline. Yes 6. Able to cough and swallow or return to baseline function. Yes 7. Alert and oriented or return to baseline mental status. Yes 8. Demonstrates controlled, coordinated movements, ambulates with steady gait, or return to baseline activity function. Yes 9. Minimal or no pain or nausea, or at a level tolerable and acceptable to patient. Yes 10. Takes and retains oral fluids as allowed. Yes 11. Procedural / perioperative site stable. Minimal or no bleeding. Yes 12. If GI endoscopy procedure, minimal or no abdominal distention or passing flatus. N/A 13. Written discharge instructions and emergency telephone number provided. Yes 14. Accompanied by a responsible adult. Yes * Hilary Schumacher RN - 11/24/2020 10:19 AM EST 1015 able to move left foot on command. documented in this encounter Discharge Instructions * Instructions* Hilary Schumacher RN - 11/24/2020 SAME DAY SURGERY DISCHARGE INSTRUCTIONS 1. Do not drive or operate hazardous machinery for 24 hours. 2. Do not make important personal or business decisions for 24 hours. 3. Do not drink alcoholic beverages for 24 hours. 4. Do not smoke tobacco products for 24 hours. 5. Eat light foods (Jell-O, soups, etc....) and drink plenty of fluids (water, Sprite, etc...) up to 8 glasses per day, as you can tolerate. 6. If your bandages become soaked with bright red blood, place another dressing pad over your bandages. (DO NOT remove original bandage.) Call your surgeon for further instructions. A small amount ofbright red blood is to be expected. 7. Limit your activities for 24 hours. Do not engage in heavy work until your surgeon gives you permission. 8. Report the following signs or any questions regarding your physical condition to your surgeon immediately: Excessive swelling of, or around the wound area. Redness. Temperature of 100 degrees (F) or above. Excessive pain. 9. Call your surgeon for any questions regarding your surgery. 10. Call for an appointment to see your surgeon in . POST-OPERATIVE INSTRUCTIONS Elevate extremity at the level of your heart or above. Ice 30 minutes on, 30 minutes off for the first 24 hours. Do not remove bandages and dressing. Do not get bandages wet. Take pain medications as directed. Resume your regular diet. Any question or concerns please call the office ([phone]). If after hours Dr. Kelly can be reached at [phone] (home) or [phone] (cell phone). documented in this encounter Chief Complaint and Reason for Visit Chief Complaint Amb Documentation 4 MONTH CHECK UP hurt finger, red, swollen, Reason for Visit Constipation due to slow transit Controlled type 2 diabetes mellitus with hyperglycemia Depression, major, recurrent, mild Essential hypertension Obstructive sleep apnea Seborrheic dermatitis of scalp Stanley syndrome Cellulitis of finger of right hand Chief Complaint hurt finger, red, sw ollen, Amb Documentation r25.1 r47.01 Reason for Visit Cellulitis of finger of right hand Chief Complaint Amb Documentation r25.1 r47.01 6 month f/u Reason for Visit Constipation due to slow transit Controlled type 2 diabetes mellitus with hyperglycemia Depression, major, recurrent, mild Essential hypertension Obstructive sleep apnea Stanley syndrome Chief Complaint Amb Documentation r25.1 r47.01 6 month f/u I63.81 Reason for Visit Controlled type 2 di abetes mellitus with hyperglycemia Depression, major, recurrent, mild Diarrhea Essential hypertension Obstructive sleep apnea Stanley syndrome Additional Source Comments (unrecognized sect ion and content) No Status Records FoundNo Status Records FoundNo Status Records FoundNo Status Records FoundNo Status Records FoundNo Status Records FoundNo Status Records Found INFORMATION SOURCE (unrecogn ized section and content) DATE CREATED AUTHOR 05/15/2018 [facility] DATE CREATED AUTHOR AUTHOR'S ORGANIZ ATION 05/19/[address] [facility] DATE CREATED AUTHOR AUTHOR'S ORGANIZ ATION 01/17/2023 [facility] DATE CREATED AUTHOR AUTHOR'S ORGANIZ ATION 04/10/2023 [facility] DATE CREATED AUTHOR AUTHOR'S ORGANIZ ATION 07/09/2024 [facility] DATE CREATED AUTHOR AUTHOR'S ORGANIZ ATION 07/17/2024 [facility] DATE CREATED AUTHOR AUTHOR'S ORGANIZ ATION 07/22/2024 [facility] EPIC Reason for Visit (unrecogniz ed section and content) Status Reason Specialty Diagnoses / Procedures Referre d By Contact Referred To Contact Closed Radiology Diagnoses Alternating exotropia Diplopia Myopathy of extraocular muscles, bilateral Procedures MRI-BRAIN WO & W CONTRAST 609[address] MRI BRAIN WWO Bipin Quintana Y, DO [address] [place] [address] [facility] [address] [place] [address] Status Reason Specialty Diagnoses / Procedures Referre d By Contact Referred To Contact Diagnoses Skin lesion SKIN LESION LEFT PLANTAR FOOT Procedures LA EXC TUMOR SOFT TISSUE FOOT/TOE SUBFASC <1.5CM FOOT LESION BIOPSY EXCISION, PLANTAR Kashmir Kelly, DPM [address] [place] [address] [facility] Reason Comments Suicidal Pt reports thoughts of suicide after fight with girlfriend today Reason Comments Concern For COVID-19 Pt was exposed to C ovid and has recently had cough and headache with episodes of tachycardia Specialty Diagnoses / Procedures Referred By Contyury t Referred To Contact Diagnoses Onychocryptosis Onychocryptosis [L60.0] Procedures LA EXCISION NAIL MATRIX PERMANENT REMOVAL NAILBED EXCISION MATRIXECTOMY- DIGITS 1,4,5 Kashmir Kelly, DPM [address] [place] [address] [facility] [address] [place] [address] Referral ID Status Reason Start Date Expiration Date Visits Re quested Visits Authorized [id number] 1 1 Care Teams (unrecognized sec tion and content) Team Status: Active Member Role Status Dates Narayan Gagnon DO Primary Care Provider Active Team Status: Active Member Role Status Dates Narayan Gagnon DO Primary Care Provider Active Start: April 13, 2024 DAWNA Guajardo Attending Provider Active Start : April 13, 2024 Team Status: Inactive Member Role Status Dates Narayan Gagnon DO Primary Care Provider Active Start: May 15, 2024 End: May 15, 2024 Ju Hoffmann APRN-CAN DOFFER-C Attending Provider Active Start: May 15, 2024 End: May 15, 2024 Team Status: Active Member Role Status Dates Narayan Gagnon DO Primary Care Provide r, Attending Provider Active Start: June 11, 2024 Team Status: Inactive Member Role Status Dates Narayan Gagnon DO Primary Care Provide r, Attending Provider Active Start: June 24, 2024 End: June 24, 2024 Team Status: Inactive Member Role Status Dates Narayan Gagnon DO Primary Care Provider Active Start: March 12, 2024 End: March 12, 2024 Janna Krause APRN BACKHAUL DRIVER-C Attending Provider Act sharyn Start: March 12, 2024 End: March 12, 2024 Wash Rack Operator Relationship Specialty Start Date End Date Narayan Gagnon DO PCP - General 07/30/14 Wash Rack Operator Relationship Specialty Start Date End Date JoseNarayanDO PCP General 07/30/14 Wash Rack Operator Relationship Specialty Start Date End Date JoseNarayanDO PCP General 07/30/14 Wash Rack Operator Relationship Specialty Start Date End Date JoseNarayanDO PCP General 07/30/14 Team Status: Active Member Role Status Dates Narayan Gagnon DO Primary Care Provider Active Start: January 21, 2024 DAWNA Guajardo Attending Provider Active Start : January 21, 2024 Team Status: Inactive Member Role Status Dates Narayan Gagnon DO Primary Care Provide r, Attending Provider Active Start: January 23, 2024 End: January 23, 2024 Wash Rack Operator Relationship Specialty Start Date End Date Narayan Gagnon DO [facility] 07/30/14 Wash Rack Operator Relationship Specialty Start Date End Date Narayan Gagnon DO [facility] 07/30/14 Team Status: Inactive Member Role Status Dates Narayan Gagnon DO Primary Care Provider Active Start: July 02, 2024 End: July 02, 2024 Ju Hoffmann APRN-CAN DOFFER-Joseluis Attending Provider Active Start: July 02, 2024 End: July 02, 2024 Scheduled Active and Recently Administ ered Medications (unrecognized section and content) Medication Order 05/15/2022 05/16/2022 05/17/2022 acetaminophen (TYLENOL) tablet 1,000 mg (COMPLETED) 1,000 mg, Oral, ONCE, 1 dose, On Sat05/16/22 at 1930, Maximum dose of acetaminophen is 4000 mg from all sources in 24 hours. 1939 (Given - Provider: Merrill Garcia RN) clonazePAM (KLONOPIN) tablet 1 mg (COMPLETED) 1 mg, Oral, ONCE, 1 dose, On Sat05/16/22 at 2300 2309 (Given - Provider: Deonna Randle RN) LORazepam (ATIVAN) tablet 1 mg (COMPLETED) 1 mg, Oral, ONCE, 1 dose, On Sat05/16/22 at 1930 1939 (Given - Provider: Merrill Garcia RN) OLANZapine (ZYPREXA) tablet 10 mg (COMPLETED) 10 mg, Oral, ONCE, 1 dose, On Allyson 05/17/22 at 0000 0018 (Given - Provid er: Merrill Garcia RN) primidone (MYSOLINE) tablet 25 mg (COMPLETED) 25 mg, Oral, ONCE, 1 dose, On Sat05/16/22 at 2300 2309 (Given - Provider: Deonna Randle RN) tiZANidine (ZANAFLEX) tablet 4 mg (COMPLETED) 4 mg, Oral, ONCE, 1 dose, On Sat05/16/22 at 2300 2309 (Given - Provider: Deonna Randle RN) traZODone (DESYREL) tablet 100 mg (COMPLETED) 100 mg, Oral, ONCE, 1 dose, On Sat05/16/22 at 2300 2309 (Given - Provider: Deonna Randle RN) Scheduled Medication Order 05/05/2024 05/06/2024 05/07/2024 clindamycin (CLEOCIN) 900 mg in dextrose 5 % 50 mL IVPB (COMPLETED) 900 mg, IntraVENous, ONCE, 1 dose, On Allyson 05/07/24 at 0730, Antimicrobial Indications: Surgical Prophylaxis, Pre-op (day of surgery) 0845 (New Bag - Prov ider: Anabell Thompson RN)0945 (Due: Stopped - Provider: Anabell Thompson RN) Continuous Medication Order 05/05/2024 05/06/2024 05/07/2024 lactated ringers IV soln infusion IntraVENous, at 100 mL/hr, CONTINUOUS, Starting on Allyson 05/07/24 at 0730, Pre-op (day of surgery) 0730 (New Bag - Prov ider: Germaine Alvarez RN)0850 (NoRateChange - Provider: Janna Love APRN - PROMOTIONS MANAGER)0920 (Rate/Dose Change - Provider: JEYSON Villanueva PROMOTIONS MANAGER)0953 (Stopped - Provider: Ju Paulino RN) PRN Medication Order 05/05/2024 05/06/2024 05/07/2024 BUPivacaine (MARCAINE) 0.5 % 3 mL, lidocaine 1 % 3 mL (CANCELED) PRN, Starting on Allyson 05/07/24 at 0903, Intra-op 0903 (Given - Provid er: Kashmir Kelly, DPM - Comment: right toes 1, 4 5) Goals (unrecognized section and content) Goals may be documented in a n alternate section FOR RECORDS PERTAINING TO PATIENTS WHO ARE OR HAVE BEEN ENROLLED IN A CHEMICAL DEPENDENCY/SUBSTANCEABUSE PROGRAM, SOME INFORMATION MAY BE OMITTED. This clinical summary was aggregated from multiple sources. Caution should be exercised in using it in the provision of clinical care. This summary normalizes information from multiple sources, and as a consequence, information in this document may materially change the coding, format and clinical context of patient data. In addition, data may be omitted in some cases. CLINICAL DECISIONS SHOULD BE BASED ON THE PRIMARY CLINICAL RECORDS. [facility]. provides no warranty or guarantee of the accuracy or completeness of information in this document.
[2024-09-02 12:27] LABS: Basophils Absolute Auto 0.1 10^3/uL (0.0-0.1); Eosinophils Absolute Auto 0.1 10^3/uL (0.0-0.7); Eosinophils Percent Auto 1.5 % (0.9-7.0); Hematocrit 45.9 % (42.0-54.0); Hemoglobin 15.7 g/dL (14.0-18.0); Immature Granulocytes Abs Auto 0.04 10^3/uL (0.00-0.03); Immature Granulocytes Pct Auto 0.7 % (0.0-0.5); Lymphocytes Percent Auto 33.4 % (20.5-60.0); Mean Corpuscular HGB Conc 34.2 g/dL (29.9-35.2); Mean Corpuscular Hemoglobin 32.4 pg (25.9-34.0); Mean Corpuscular Volume 94.8 fL (80.0-94.0); Mean Platelet Volume 9.6 fL (9.5-13.5); Monocytes Absolute Auto 0.6 10^3/uL (0.3-0.8); Monocytes Percent Auto 10.2 % (1.7-12.0); Neutrophils Absolute Auto 3.1 10^3/uL (1.4-6.5); Neutrophils Percent Auto 53.2 % (43.0-75.0); Platelet Count 214 10^3/uL (150-450); Red Blood Count 4.84 10^6/uL (4.70-6.10); Red Cell Distribution Width 12.6 % (11.0-15.0); White Blood Count 5.9 10^3/uL (4.0-11.0)
[2024-09-02 13:15] LABS: Alanine Aminotransferase 14 U/L (16-63); Albumin Globulin Ratio 0.9; Albumin Level 3.8 g/dL (3.4-5.0); Alkaline Phosphatase 65 U/L (46-116); Aspartate Amino Transferase 7 U/L (15-37); Bilirubin Direct 0.1 mg/dL (0.0-0.2); Bilirubin Total 0.5 mg/dL (0.2-1.0); Cholesterol 169 mg/dL (<=200); Glucose 154 mg/dL (74-106); HDL Cholesterol 56 mg/dL (40-60); LDL Cholesterol Calculated 90.4 mg/dL; Total Protein 7.8 g/dL (6.4-8.2); Triglycerides 113 mg/dL (<=150); VLDL CHOLESTEROL 22.6 mg/dL; Valproic Acid 58.6 ug/mL (50.0-100.0)
== END 2024-09-02 12:06 | disposition home or self-care (01) ==
LOC: LAB 12:09
PROVIDERS: PCP Internal Medicine
DX: Z79.899 Other long term (current) drug therapy (principal)
CPT/HCPCS: 36415; 80061; 80076; 80164; 82947; 85025

== ENCOUNTER 2024-09-25 10:11 | Outpatient (OUT) | payer MEDICARE, MEDICAID, SELFPAY ==
--- OUTSIDE RECORDS SUMMARY | 2024-09-25 10:36 | XMS_ITS | CCD ---
Author Organization [facility] Care Team Providers Care [employer] Reservoir Keeper Name Role Phone PHYSICIAN, DEFAULT Unavailable Unavailable PHYSICIAN, DEFAULT Unavailable Unavailable NARAYAN GAGNON Unavailable Unavailable PHYSICIAN, DEFAULT Unavailable Unavailable PHYSICIAN, DEFAULT Unavailable Unavailable NARAYAN GAGNON Unavailable Unavailable Narayan Gagnon Primary Care Provider [phone] Narayan Gagnon DO Primary Care Provider [phone] Narayan Gagnon DO Primary Care Provider [phone] VAHID MOODY Referring Unavailable AARON MARCELO S Consulting Unavailable NARAYAN GAGNON Primary Care Unavailable ZOLTAN MONIQUE Attending Unavailable ZOLTAN MONIQUE Admitting Unavailable Narayan Gagnon DO Primary Care Provider [phone] NARAYAN GAGNON Primary Care Physician [phone] Sue Qureshi Attending Unavailable Ballard, Malina Barragan Admitting Unavailable Ballard, Malina Barragan Attending Unavailable Ballard, Malina Barragan Referring Unavailable SALAM, Sylvester Admitting Unavailable SALAM, Sylvester Attending Unavailable SALAM, Phan Referring Unavailable Ballard, Malina T Admitting Unavailable Ballard, Malina Barragan Attending Unavailable Ballard, Malina T Referring Unavailable [...] Care Unavailable Ball DONarayan Primary Care Provider DO Narayan Gagnon Primary Care Provider JAYASHREE Hoffmann Attending Provider Narayan Gagnon Primary Care Unavailable Hoffmann, Ju E Admitting Unavailable Hoffmann, Ju Stock Attending Unavailable Ball, Narayan Primary Care Unavailable Hoffmann, Ju E Admitting Unavailable Hoffmann, Ju Stock Attending Unavailable BALL, NARAYAN Referring Unavailable BALL, NARAYAN Primary Care Unavailable CONSOLOKASHMIR Attending Unavailable CONSOLO, KASHMIR Lombardi Admitting Unavailable BALL, NARAYAN Primary Care Unavailable BALLARD, MALINA Barragan Attending Unavailable BALLARD, MALINA Barragan Referring Unavailable HOFFMANN, JU Attending Unavailable HOFFMANN, JU Attending Unavailable COCO ARGUELLO Attending Unavailable Ball, DO Busch Primary Care Provider JAYASHREE Hoffmann Attending Provider Allergies Allergy Classification Reported Allergen(s) Allergy Type Date of Onset Reaction(s) Facility (20 sources) Morphine; Translations: [morphine] Drug Allergy 4 Hives, Vomiting (disorder), Difficulty breathing (finding) [place], [place] (13 sources) Penicillins Propensity to adverse reactions to drug 4 Hives [place], [place] (20 sources) Vancomycin; Translations: [vancomycin] Drug Allergy 3 Anaphylaxis, Difficulty breathing (finding) [place], [place] (20 sources) Penicillin; Translations: [penicillin] Drug Allergy Urticaria (disorder) [facility] (1 source) Morphine Drug Allergy [facility] (1 source) Vancomycin Drug Allergy [facility] (18 sources) Penicillin G Benzathine & Proc Drug allergy Unknown [facility] Other (18 sources) Morphine Sulfate (Concentrate) *ANALGESICS - OPIOI Propensity to adverse reactions Unknown [facility] Other (6 sources) Allergies Reconciled Propensity to adverse reactions Unknown [facility] Other (6 sources) patient allergy list reviewed by nurse or physicia Propensity to adverse reactions 4 Comment:Done [facility] Other (2 sources) Penicillins Propensity to adverse reactions to drug 4 [facility] (1 source) Morphine Drug Allergy 4 [facility]ository (1 source) Penicillins Drug allergy (disorder) 4 [facility] (1 source) Vancomycin Drug Allergy 4 [facility] Medications Current Medications Medication Drug Class(es) [...] mg by mouth every morning. 0 Active azithromycin 250 mg oral tablet (1 source) Macrolide Antimicrobial Start: 09-17-2024 Azithromycin Active 250 MG PO .COMPLEX 6 September 17, 2024 12:00am 2 tabs on first day followed by 1 tab on days 2-5 Blood-Glucose Meter (True Metrix Air Glucose Meter) misc (4 sources) Start: 04-06-2024 Blood-Glucose Meter (True Metrix Air Glucose Meter) misc Active 0 .Route 1 April 06, 2024 12:00am to test BS daily calcium chloride 0.0014 meq/ml / potassium chloride 0.004 meq/ml / sodium chloride 0.103 meq/ml / sodium lactate 0.028 meq/ml injectable solution (2 sources) Start: 05-07-2024 lactated ringe rs IV soln infusion Start: 11-24-2020 lactated ringe rs infusion clonazePAM 1 mg oral tablet (14 sources) Benzodiazepine Start: 08-10-2020 take 1 mg by mouth twice daily clonazepam 1 mg, Oral, BID, Psychosis Start Date: 08/10/20 Status: Ordered DULoxetine 60 mg delayed release oral capsule (1 source) Serotonin and Norepinephrine Reuptake Inhibitor take 1 capsule by mouth once daily DULoxetine (CYMBALTA) 60 MG extended release capsule Take 1 capsule by mouth daily 0 Active empagliflozin 25 mg oral tablet (20 sources) Sodium-Glucose Cotransporter 2 Inhibitor Start: 01-22-2024 End: 06-26-2024 take 25 mg by mouth once daily Empagliflozin Active 25 MG PO Daily 90 90 June 26, 2024 8:47am Fiber (3 sources) Start: 05-09-2020 take 1 tablet by mouth every other day Fiber Lax 625 mg oral tablet 625 mg = 1 tab(s), Oral, Every other day, Refills(s) 0, Constipation Start Date: 05/09/20 Status: Ordered fluticasone propionate 0.05 mg/actuat metered dose nasal spray (20 sources) Corticosteroid Start: 01-22-2024 Fluticasone Propionate Active 1 SPRAY INTRANASAL Daily January 22, 2024 1:00am take 1 spray(s) nasal route once daily Fluticasone Propionate 50 MCG/ACT 1 spray in each nostril Nasally Once a day Active take 1 spray(s) nasal route once daily Fluticasone Propionate 50 MCG/ACT 1 spray in each nostril Nasally Once a day Active hyoscyamine sulfate 0.125 mg sublingual tablet (11 sources) Start: 01-22-2024 take 1 tablet under [...] sources) Angiotensin Converting Enzyme Inhibitor Start: 01-08-2022 End: 08-04-2024 take 20 mg by mouth once daily Lisinopril Active 20 MG PO Daily August 04, 2024 10:37pm Start: 04-29-2018 End: 01-22-2024 take 5 mg by mouth once daily Lisinopril Discontinued 5 MG PO daily April 29, 2018 12:00am January 22, 2024 12:41pm take [address] [facility] once daily in the morning lisinopril (PRINIVIL;ZESTRIL) [...] Active metFORMIN hydrochloride 500 mg oral tablet (18 sources) Biguanide Start: 01-08-2022 take 1 tablet [...] day(s), # 90 cap(s), Refills(s) 0, Pharmacy: [facility], 171, cm, 11/01/22 12:17:00 EST, Height/Length Dosing, 78.9, kg, 11/01/22 12:17:00 EST, Weight Dosing Start Date: 11/01/22 Stop Date: 01/30/23 Status: Ordered polyethylene glycol 3350 [id number] mg / potassium chloride 1480 mg / sodium bicarbonate 5720 mg / sodium chloride 53967 mg powder for oral solution (1 source) Osmotic Laxative Start: 11-01-2022 NuLYTELY Zimmer oral powder for reconstitution See Instructions, 1 EA, Refill(s) 0, Prior to colonoscopy., [facility], 171, cm, 11/01/22 12:17:00 EST, Height/Length Dosing, 78.9, kg, 11/01/22 12:17:00 EST, Weight Dosing Start Date: 11/01/22 Status: Ordered pravastatin sodium 20 mg oral tablet (20 sources) HMG-CoA Reductase Inhibitor Start: 04-29-2018 End: 08-04-2024 take 20 mg by mouth once daily in the evening Pravastatin Active 20 MG PO Every evening August 04, 2024 10:37pm sulfamethoxazole 800 mg / trimethoprim 160 mg oral tablet (5 sources) Dihydrofolate Reductase Inhibitor Antibacterial, Sulfonamide Antimicrobial Start: 03-12-2024 take 1 tablet by mouth every twelve hours Sulfamethoxazole-Tr imethoprim (Bactrim Ds) 800-160 mg tablet Active 1 TAB PO Every 12 hours 13 09March 12, 2024 12:00am tiZANidine 4 mg oral capsule (20 sources) Central alpha-2 Adrenergic Agonist Start: 05-16-2022 End: 05-16-2022 tiZANidine (ZANAFLEX) tablet 4 mg Start: 04-29-2018 End: 08-04-2024 take 4 mg by mouth once daily in the evening Tizanidine Active 4 MG PO Every evening August 04, 2024 10:36pm take 1 tablet by abdoulaye th every eight hours tiZANidine HCl 4 MG 1 tablet as needed Orally Three times a day for 30 days Active 24 hr divalproex sodium 500 mg extended [...] Discontinued 250 MG PO Daily at bedtime May 05, 2018 12:00am January 22, 2024 12:43pm Start: 05-05-2018 End: 01-22-2024 take 500 mg by mouth twice daily Divalproex Discontinued 500 MG PO Twice daily May 05, 2018 12:00am January 22, 2024 12:43pm Start: 04-29-2018 End: 01-22-2024 take 250 mg by mouth three times daily Divalproex Discontinued 250 MG PO Three times daily April 29, 2018 12:00am January 22, 2024 12:44pm take 2 tablets by mo uth twice daily divalproex (DEPAKOTE) [address] tablet Take 500 mg by mouth 2 times daily 0 Active 24 hr verapamil hydrochloride 180 mg extended release oral capsule (20 sources) Calcium Channel Won Start: 02-21-2023 take 1 tablet by mouth every twenty-four hours Verapamil HCl ER 180 MG 1 tablet Orally Once a day for 90 days Jan, Active Start: 04-29-2018 End: 08-04-2024 take 180 mg by mouth once daily Verapamil Active 180 M G PO daily August 04, 2024 10:38pm Completed/Discontinued Medications Medication Drug Class(es) Dates Sig [...] days Active cholecalciferol 0.025 mg oral capsule (5 sources) Vitamin D Start: 04-29-2018 End: 01-22-2024 take 1 capsule by mouth once daily Cholecalciferol (Vitamin D3) (Vitamin D3) 1,000 unit Capsule Discontinued 1000 UNIT PO daily April 29, 2018 12:00am January 22, 2024 12:44pm citalopram 40 mg oral tablet (6 sources) Serotonin Reuptake Inhibitor Start: 04-29-2018 End: [...] End: 11-24-2020 dimenhyDRINATE (DRAMAMINE) tablet 50 mg docusate sodium 100 mg oral capsule (20 sources) Start: 01-22-2024 End: 09-17-2024 take 100 mg by mouth once daily Docusate Sodium Discontinued 100 MG PO Daily August 04, 2024 10:39pm September 17, 2024 11:22am Start: 05-09-2020 take [address] [facility] twice daily as needed for constipation Colace 100 mg Cap 100 mg = 1 cap(s), Oral, BID, PRN for constipation, # 20 cap(s), Refills(s) 0 Start Date: 05/09/20 Status: Ordered take 1 capsule by mo [facility] every other day docusate sodium (COLACE) 100 MG capsule Take 1 capsule by mouth every other day Alternate with Fibercon 625 mg 0 Active 0.5 ml dulaglutide 1.5 mg/ml auto-injector (20 sources) GLP-1 Receptor Agonist Start: 06-12-2024 End: 09-17-2024 Dulaglutide (Trulicity) 0.75 mg/0.5 mL pen injector Discontinued 1.5 MG SUBCUT every week 4 June 12, 2024 2:21pm September 17, 2024 11:21am Start: 02-04-2024 End: 06-12-2024 inject 0.75 mg by subcutaneous injection every week Dulaglutide (Trulicity) 0.75 mg/0.5 mL pen injector Discontinued 0 .ROUTE .COMPLEX 4 February 17, 2024 1:38pm June 12, 2024 [...] a week Weekly on Saturday 0 Active gadoteridol (PROHANCE) injection 15 mL (1 source) Start: 11-17-2020 End: 11-17-2020 gadoteridol (PROHANCE) injection 15 mL glimepiride 2 mg oral tablet (20 sources) Sulfonylurea Start: 01-23-2024 End: 09-17-2024 Glimepiride Discontinued 2 MG PO Daily 90 90 June 26, 2024 8:47am September 17, 2024 11:20am Take with 4mg dose, 30 minutes prior to bkfst Start: 01-22-2024 End: 06-01-2024 take 4 mg by mouth once daily Glimepiride Discontinued 4 MG PO Daily 90 90 March 31, 2024 2:13pm June 01, 2024 5:40pm Start: 05-09-2020 take 1 tablet by abdoulaye th once daily glimepiride 2 mg Tab 2 [...] mouth every morning (before breakfast) 0 Active LORazepam 1 mg oral tablet (1 source) Benzodiazepine Start: 05-16-2022 End: 05-16-2022 LORazepam (ATIVAN) tablet 1 mg mirtazapine 15 mg oral tablet (5 sources) Start: 05-05-2018 End: 01-22-2024 take 15 [...] 0.5 tablets by mouth nightly 0 Active traMADol hydrochloride 50 mg oral tablet (20 sources) Opioid Agonist Start: 03-12-2024 End: 09-08-2024 take 50 mg by mouth twice daily Tramadol Discontinued 50 MG PO Twice daily 60 30 March 18, 2024 2:29pm June 30, 2024 2:03pm Start 03/18 Start: 04-29-2018 End: 01-22-2024 take 50 mg by mouth twice daily Tramadol Discontinued 50 MG PO Twice daily April 29, 2018 12:00am January 22, 2024 12:43pm take 1 tablet by abdoulaye th every twenty-four hours traMADol HCl 50 MG 1 tablet as needed Orally Once a day Active traZODone hydrochloride 100 mg oral tablet (20 sources) Serotonin Reuptake Inhibitor Start: 05-16-2022 traZODone (DESYREL) tablet 100 mg Start: 01-08-2022 End: 06-30-2024 take 100 mg by mouth once daily at bedtime Trazodone Discontinued 100 MG PO Daily at bedtime January 22, 2024 1:00am June 30, 2024 1:09pm vitamin e d-alpha 400 unt oral capsule [...] 05-09-2020 Chronic Other aftercare (4 sources) 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; Translations: [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 CURRENT DRUG THERAPY] Onset: 02-11-2023 Episodic Other [...] foot] Onset: 08-06-2014 Chronic Other congenital anomalies (5 sources) Stanley syndrome; 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] 01-22-2024 Chronic Other gastrointestinal disorders (4 sources) Mixed irritable bowel syndrome; Translations: [Irritable bowel syndrome] Chronic Other gastrointestinal disorders (6 sources) Irritable [...] bowel habits 11-01-2022 Episodic Other gastrointestinal disorders (3 sources) Diarrhea; Translations: [Diarrhea, unspecified] Onset: 01-02-2023 Episodic Other gastrointestinal disorders (3 sources) Diarrhea, unspecified; Translations: [Diarrhea] Episodic Other gastrointestinal disorders (5 sources) Slow transit constipation; Translations: [Slow transit [...] Other hereditary and degenerative nervous system conditions (11 sources) Essential tremor; Translations: [Essential tremor] 01-22-2024 Chronic Other hereditary and degenerative nervous system conditions (5 sources) Impaired cognition; Translations: [Mild cognitive impairment, [...] conditions (not mental disorders or infectious disease) (5 sources) Encounter for screening for malignant neoplasm of prostate; Translations: [Patient encounter status] Episodic Other skin disorders (6 sources) Generalized [...] Onset: 2018 01-22-2024 Chronic Residual codes; unclassified (10 sources) Obstructive sleep apnea (adult) (pediatric); Translations: [...] sources) High risk drug monitoring status; Translations: [senior care (current) use of opiate analgesic] Onset: 02-09-2019 [...] Name Value Interpretation Reference Range Facil ity Basophils Auto (Bld) [#/Vol] on 09-02-2024 Basophils (Bld) [#/Vol] 0.1 10 3/uL 0.0-0.1 [facility] Basophils/100 WBC Auto (Bld) on 09-02-2024 Basophils/100 WBC (Bld) 1.0 % 0.2-2.0 [facility] Cholesterol in LDL Calc [Mas s/Vol]on 09-02-2024 Cholesterol in LDL [Mass/Vol] 90.4 mg/dL [facility] Comment on above: <100 mg/dl [id number] 0-129 mg/dl NEAR OR ABOVE [id number] mg/dl BORDERLINE [id number] mg/dl HIGH>190 mg/dl VERY HIGH Cholesterol in VLDL Calc [Ma ss/Vol]on 09-02-2024 Cholesterol in VLDL [Mass/Vol] 22.6 mg/dL [facility] Eosinophils/100 WBC Auto (Bl d)on 09-02-2024 Eosinophils/100 WBC (Bld) 1.5 % 0.9-7.0 [facility] Erythrocyte distribution wid th Auto (RBC) [Ratio]on 09-02-2024 Erythrocyte distribution width (RBC) [Ratio] 12.6 % 11.0-15.0 [facility] Globulin Calc (S) [Mass/Vol] on 09-02-2024 Globulin (S) [Mass/Vol] 4.0 g/dL [facility] Hematocrit Auto (Bld) [Volum e fraction]on 09-02-2024 Hematocrit (Bld) [Volume fraction] 45.9 % 42.0-54.0 [facility] Hemoglobin [Mass/volume] in Bloodon 09-02-2024 Hemoglobin (Bld) [Mass/Vol] 15.7 g/dL 14.0-18.0 [facility] Laboratory - Chemistry and C hemistry - challengeon 09-02-2024 Albumin [Mass/Vol] 3.8 g/dL 3.4-5.0 [facility] ALP [Catalytic activity/Vol] 65 U/L 46-116 [facility] ALT [Catalytic activity/Vol] 14 U/L Low 16-63 [facility] AST [Catalytic activity/Vol] 7 U/L Low 15-37 [facility] Bilirubin [Mass/Vol] 0.5 mg/dL 0.2-1.0 [facility] Bilirubin.direct [Mass/Vol] 0.1 mg/dL 0.0-0.2 [facility] Cholesterol [Mass/Vol] 169 mg/dL <=200 [facility] Cholesterol in HDL [Mass/Vol] 56 mg/dL 40-60 [facility] Comment on above: > or =60 mg/dl - LOW CARDIOVASCULAR RISK<40 mg/dl - HIGH CARDIOVASCULAR RISK Glucose [Mass/Vol] 154 mg/dL High 74-106 [facility] Protein [Mass/Vol] 7.8 g/dL 6.4-8.2 [facility] Triglyceride [Mass/Vol] 113 mg/dL <=150 [facility] Laboratory - Hematology and Cell countson 09-02-2024 Immature granulocytes/100 WBC (Bld) 0.7 % High 0.0-0.5 [facility] Leukocytes [#/volume] correc jan for nucleated erythrocytes in Blood by Automated counon 09-02-2024 WBC corrected for nucl RBC Auto (Bld) [#/Vol] 5.9 10 3/uL 4.0-11.0 [facility] Lymphocytes Auto (Bld) [#/Vo l]on 09-02-2024 Lymphocytes (Bld) [#/Vol] 2.0 10 3/uL 1.2-3.8 [facility] Lymphocytes/100 WBC Auto (Bl d)on 09-02-2024 Lymphocytes/100 WBC (Bld) 33.4 % 20.5-60.0 [facility] MCH Auto (RBC) [Entitic mass ]on 09-02-2024 MCH (RBC) [Entitic mass] 32.4 pg 25.9-34.0 [facility] MCHC Auto (RBC) [Mass/Vol]on 09-02-2024 MCHC (RBC) [Mass/Vol] 34.2 g/dL 29.9-35.2 [facility] MCV Auto (RBC) [Entitic vol] on 09-02-2024 MCV (RBC) [Entitic vol] 94.8 fL High 80.0-94.0 [facility] Monocytes Auto (Bld) [#/Vol] on 09-02-2024 Monocytes (Bld) [#/Vol] 0.6 10 3/uL 0.3-0.8 [facility] Monocytes/100 WBC Auto (Bld) on 09-02-2024 Monocytes/100 WBC (Bld) 10.2 % 1.7-12.0 [facility] Neutrophils Auto (Bld) [#/Vo l]on 09-02-2024 Neutrophils (Bld) [#/Vol] 3.1 10 3/uL 1.4-6.5 [facility] Neutrophils/100 WBC Auto (Bl d)on 09-02-2024 Neutrophils/100 WBC (Bld) 53.2 % 43.0-75.0 [facility] No Panel Informationon 09-02 Eosinophils # (Auto) 0.1 10 3/uL 0.0-0.7 [facility] Immature Granulocyte # (Auto) 0.04 10 3/uL High 0.00-0.03 [facility] Valproic Acid (Depakene) Level 58.6 ug/mL 50.0-100.0 [facility] Platelet mean volume Auto (B ld) [Entitic vol]on 09-02-2024 Platelet mean volume (Bld) [Entitic vol] 9.6 fL 9.5-13.5 [facility] Platelets Auto (Bld) [#/Vol] on 09-02-2024 Platelets (Bld) [#/Vol] 214 10 3/uL 150-450 [facility] RBC Auto (Bld) [#/Vol]on RBC (Bld) [#/Vol] 4.84 10 6/uL 4.70-6.10 [facility] Serum or plasma albumin/glob ulin mass ratioon 09-02-2024 Albumin/Globulin [Mass ratio] 0.9 {ratio} [facility] Serum or plasma total choles terol/high density lipoprotein (HDL) cholesterol mass yuniel 09-02-2024 Cholesterol.total/C holesterol in HDL [Mass ratio] 3.0 {ratio} [facility] Comment on above: 3.3 - 4.4 LOW RISK4. 4 - 7.1 AVERAGE RISK7.1 - 11.0 MODERATE RISK>11.[address] angio neckon 07-02-2024 CT angio neck [facility] [address] CT Scan Report Signed Patient: Hari Thornton MR#: [id number] [id number] : 1975 Acct:[id number] Age/Sex: 49 / M ADM Date: 07/02/24 Loc: CT Room: Type: [facility] Attending Dr: Ju BLANC Copies to: JAYASHREE Porter Ordering Provider: JAYASHREE Porter Date of Service: 07/02/24 CT/CT angio neck: I63.81 ([id number]) CT/CT angio head: I63.81 CTA Head and [...] Balta Tracy M.D.07/02/2024 2:46 PM Dictation Location: [place] [address] Transcribed By: [facility] 07/02/24 1446 Dictated By: Balta Tracy DO 07/02/24 1439 Signed By: 07/02/24 1446 Normal [facility] Cholesterol in LDL Calc [Mas s/Vol]on 06-11-2024 Cholesterol in LDL [Mass/Vol] 76.6 mg/dL [facility] Comment on above: <100 mg/dl [id number] 0-129 mg/dl NEAR OR ABOVE [id number] mg/dl BORDERLINE [id number] mg/dl HIGH>190 mg/dl VERY HIGH Cholesterol in VLDL Calc [Ma ss/Vol]on 06-11-2024 Cholesterol in VLDL [Mass/Vol] 23.4 mg/dL [facility] Globulin Calc (S) [Mass/Vol] on 06-11-2024 Globulin (S) [Mass/Vol] 3.8 g/dL [facility] Glucose mean value [Mass/vol ume] in Blood Estimated from glycated hemoglobinon 06-11-2024 Average glucose Estimated from glycated hemoglobin (Bld) [Mass/Vol] 192 mg/dL [facility] Laboratory - Chemistry and C hemistry - challengeon 06-11-2024 Albumin [Mass/Vol] 3.8 g/dL 3.4-5.0 [facility] ALP [Catalytic activity/Vol] 66 U/L 46-116 [facility] ALT [Catalytic activity/Vol] 19 U/L 16-63 [facility] AST [Catalytic activity/Vol] 8 U/L Low 15-37 [facility] Bilirubin [Mass/Vol] 0.4 mg/dL 0.2-1.0 [facility] Bilirubin.direct [Mass/Vol] 0.1 mg/dL 0.0-0.2 [facility] Cholesterol [Mass/Vol] 151 mg/dL <=200 [facility] Cholesterol in HDL [Mass/Vol] 51 mg/dL 40-60 [facility] Comment on above: > or =60 mg/dl - LOW CARDIOVASCULAR RISK<40 mg/dl - HIGH CARDIOVASCULAR RISK Cobalamin (Vitamin B12) [Mass/Vol] 723.0 pg/mL 193.0-986.0 [facility] Protein [Mass/Vol] 7.6 g/dL 6.4-8.2 [facility] Triglyceride [Mass/Vol] 117 mg/dL <=150 [facility] TSH Qn 2.371 m[IU]/L 0.358-3.740 [facility] Laboratory - Hematology and Cell countson 06-11-2024 HbA1c (Bld) [Mass fraction] 8.3 % High 4.5-6.2 [facility] Comment on above: ADA RECOMMENDED LIMI T 4.0 - 6.0ADA THERAPEUTIC TARGET < 7.0ACTION SUGGESTED> 7.0 Serum or plasma albumin/glob ulin mass ratioon 06-11-2024 Albumin/Globulin [Mass ratio] 1.0 {ratio} [facility] Serum or plasma total choles terol/high density lipoprotein (HDL) cholesterol mass yuniel 06-11-2024 Cholesterol.total/C holesterol in HDL [Mass ratio] 3.0 {ratio} [facility] Comment on above: 3.3 - 4.4 LOW RISK4. 4 - 7.1 AVERAGE RISK7.1 - 11.0 MODERATE RISK>11.0 HIGH RISK MR head/brain wo/w conon MR head/brain wo/w con [facility] Main [place] [address] [place] [address] MRI Report Signed Patient: Hari Thornton MR#: [id number] 034 : 1975 Acct:[id number] Age/Sex: 49 / M ADM Date: 05/15/24 Loc: MR Room: Type: [facility] Attending Dr: Ju BLANC Copies to: JAYASHREE [...] Mina Jeffery M.D.05/15/2024 11:00 AM Dictation Location: [place] [address] Transcribed By: [facility] 05/15/24 1100 Dictated By: Mina Jeffery II, MD 05/15/24 1052 Signed By: 05/15/24 1100 Normal [facility] Glucose, Whole Bloodon 05-07 Glucose [Mass/Vol] 173 mg/dL High 74 - 100 mg/dL [facility] Interpretation and review of laboratory results Abnormal [facility] Glucose [Mass/Vol] 173 mg/dL High 74-100 [facility] Basic Metabolic Panelon Anion gap [Moles/Vol] 12 mmol/L 9 - 17 mmol/L [facility] Calcium [Mass/Vol] 10.6 mg/dL High 8.6 - 10. 4 mg/dL [facility] Chloride [Moles/Vol] 103 mmol/L 98 - 107 mmol/L [facility] CO2 [Moles/Vol] 24 mmol/L 20 - 31 mmol/L [facility] Creatinine [Mass/Vol] 0.7 mg/dL 0.7 - 1.2 mg/dL [facility] Est, Kenishasusan Blackwell Rate - PINF [facility] Comment on above: These results are not [...] mg/dL High 70 - 99 mg/dL [facility] Interpretation and review of laboratory results Abnormal [facility] Potassium [Moles/Vol] 4.8 mmol/L 3.7 - 5.3 mmol/L [facility] Sodium [Moles/Vol] 139 mmol/L 135 - 144 mmol/L [facility] Urea nitrogen [Mass/Vol] 17 mg/dL 6 - 20 mg/dL [facility] Urea nitrogen/Creatinine [Mass ratio] 24 mg/mg High 9 - 20 [facility] Basic Metabolic Profon 05-01 Anion gap [Moles/Vol] 12 mmol/L Normal 9-17 [facility] Comment on above: Performed By: #### B MP, CDP #### [facility] [address] [address] [place], [place] [id number] Medical Accountant: Ryan Landin MD BUN/CRE Ratio 24 High 9-20 [facility] Comment on above: Performed By: #### B MP, CDP #### [facility] [address] [place], [place] [id number] Medical Accountant: Ryan Landin MD Calcium [Mass/Vol] 10.6 mg/dL High 8.6-10.4 [facility] Comment on above: Performed By: #### B MP, CDP #### [facility] [address] [place], [place] [address]183 Medical Accountant: Ryan Landin MD Chloride [Moles/Vol] 103 mmol/L Normal 98-107 [facility] Comment on above: Performed By: #### B MP, CDP #### [facility] [address] [place], [place] [id number] Medical Accountant: Ryan Landin MD CO2 [Moles/Vol] 24 mmol/L Normal 20-31 [facility] Comment on above: Performed By: #### B MP, CDP #### [facility] [address] [place] [address] Medical Accountant: Ryan Landin MD Creatinine [Mass/Vol] 0.7 mg/dL Normal 0.7-1.2 [facility] Comment on above: Performed By: #### B MP, CDP #### [facility] [address] [place] [address] Medical Accountant: Ryan Landin MD GFR/1.73 sq M.predicted among non-blacks MDRD (S/P/Bld) [Vol rate/Area] mL/min/{1.73_m2} Normal >60 [facility] Comment on above: Result Comment: These [...] LIZ, CDP #### [facility] [address] [place] [address] [place] [place], [place] [id number] Medical Accountant: Ryan Landin MD Glucose [Mass/Vol] 160 mg/dL High 70-99 [facility] Comment on above: Performed By: #### B LIZ, CDP #### [address] [place], [place] [id number] Medical Accountant: Ryan Landin MD Potassium [Moles/Vol] 4.8 mmol/L Normal 3.7-5.3 [facility] Comment on above: Performed By: #### B LIZ, CDP #### [facility] [address] [place] [address] [place] [place], [place] [id number] Medical Accountant: Ryan Landin MD Sodium [Moles/Vol] 139 mmol/L Normal 135-144 [facility] Comment on above: Performed By: #### B LIZ, CDP #### [facility] [address] [place] [address] [place], [place] [id number] Medical Accountant: Ryan Landin MD Urea nitrogen [Mass/Vol] 17 mg/dL Normal 6-20 [facility] Comment on above: Performed By: #### B LIZ, CDP #### [facility] [address] [place] [address] [place] [address] Medical Accountant: Ryan Landin MD CBC with Auto Differentialon 05-01-2024 Basophils (Bld) [#/Vol] 0.07 10*3/uL [facility] Basophils/100 WBC (Bld) 1 % 0 - 2 % [facility] Eosinophils (Bld) [#/Vol] 0.08 10*3/uL [facility] Eosinophils/100 WBC (Bld) 1 % 1 - 4 % [facility] Erythrocyte distribution width (RBC) [Ratio] 13.2 % 11.8 - 14.4 % [facility] Hematocrit (Bld) [Volume fraction] 45.6 % 40.7 - 50.3 % [facility] Hemoglobin (Bld) [Mass/Vol] 15.5 g/dL 13.0 - 17.0 g/dL [facility] Immature granulocytes (Bld) [#/Vol] 0.07 10*3/uL [facility] Immature granulocytes/100 WBC (Bld) 1 % High 0 [facility] Interpretation and review of laboratory results Abnormal [facility] Lymphocytes/100 WBC (Bld) 25 % 24 - 43 % [facility] Lymphocytes/100 WBC (Bld) 1.70 % [facility] MCH (RBC) [Entitic mass] 31.6 pg 25.2 - 33.5 pg [facility] MCHC (RBC) [Mass/Vol] 34.0 g/dL 28.4 - 34.8 g/dL [facility] MCV (RBC) [Entitic vol] 92.9 fL 82.6 - 102.9 fL [facility] Monocytes/100 WBC (Bld) 9 % 3 - 12 % [facility] Monocytes/100 WBC (Bld) 0.60 % [facility] Neutrophils/100 WBC (Bld) 63 % 36 - 65 % [facility] Nucleated RBC/100 WBC (Bld) [Ratio] 0.0 % 0.0 per 100 WBC [facility] Platelet mean volume (Bld) [Entitic vol] 9.5 fL 8.1 - 13.5 fL [facility] Platelets (Bld) [#/Vol] 255 10*3/uL [facility] RBC (Bld) [#/Vol] 4.91 10*6/uL 4.21 - 5.7 7 m/uL [facility] Segmented neutrophils/100 WBC (Bld) 4.18 % [facility] WBC other (Bld) [#/Vol] 6.7 [facility] CBC with Diffon 05-01-2024 Abs. Basophil 0.07 k/uL Normal 0.00-0.20 [facility] Comment on above: Performed By: #### B MP, CDP #### [facility] [address] [place] [address] [place] [address] Medical Accountant: Ryan Landin MD Abs.Imm.Granulocyte 0.07 k/uL Normal 0.00-0.30 [facility] Comment on above: Performed By: #### B MP, CDP #### [address] [place] [address] Medical Accountant: Ryan Landin MD Abs.Neutrophil (Seg) 4.18 k/uL Normal 1.50-8.10 [facility] Comment on above: Performed By: #### B LIZ, CDP #### [facility] [address] [place] [address] Dr. [place], [facility]83 Medical Accountant: Ryan Landin MD Basophils/100 WBC (Bld) 1 % Normal 0-2 [facility] Comment on above: Performed By: #### B LIZ, CDP #### [address] [place] [address] Medical Accountant: Ryan Landin MD Eosinophils (Bld) [#/Vol] 0.08 10*3/uL Normal 0.00-0.44 [facility] Comment on above: Performed By: #### B MP, CDP #### [facility] [address] [place] [address] [place] [address] Medical Accountant: Ryan Landin MD Eosinophils/100 WBC (Bld) 1 % Normal 1-4 [facility] Comment on above: Performed By: #### B MP, CDP #### [facility] [address] [place] [address] Dr[place], [place] [id number] Medical Accountant: Ryan Landin MD Erythrocyte distribution width (RBC) [Ratio] 13.2 % Normal 11.8-14.4 [facility] Comment on above: Performed By: #### B LIZ, CDP #### [facility] [address] [place], [place] 0442483 Medical Accountant: Rayn Landin MD Hematocrit (Bld) [Volume fraction] 45.6 % Normal 40.7-50.3 [facility] Comment on above: Performed By: #### B MP, CDP #### [facility] [address] [place], [place] [id number] Medical Accountant: Ryan Landin MD Hemoglobin (Bld) [Mass/Vol] 15.5 g/dL Normal 13.0-17.0 [facility] Comment on above: Performed By: #### B LIZ, CDP #### [address] [place], [place] [id number] Medical Accountant: Ryan Landin MD Immature granulocytes/100 WBC (Bld) 1 % High 0 [facility] Comment on above: Performed By: #### B LIZ, CDP #### [address] [place], [place] 7150583 Medical Accountant: Ryan Landin MD Lymphocytes (Bld) [#/Vol] 1.70 10*3/uL Normal 1.10-3.70 [facility] Comment on above: Performed By: #### B LIZ, CDP #### [facility] [address] [place] [address] Dr[place], [place] [id number] Medical Accountant: Ryan Landin MD Lymphocytes/100 WBC (Bld) 25 % Normal 24-43 [facility] Comment on above: Performed By: #### B LIZ, CDP #### [facility] [address] [place] [address] Medical Accountant: Ryan Landin MD MCH (RBC) [Entitic mass] 31.6 pg Normal 25.2-33.5 [facility] Comment on above: Performed By: #### B LIZ, CDP #### [facility] [address] [place], [place] 0646383 Medical Accountant: Ryan Landin MD MCHC (RBC) [Mass/Vol] 34.0 g/dL Normal 28.4-34.8 [facility] Comment on above: Performed By: #### B MP, CDP #### [facility] [address] [place], [facility]83 Medical Accountant: Ryan Landin MD MCV (RBC) [Entitic vol] 92.9 fL Normal 82.6-102.9 [facility] Comment on above: Performed By: #### B MP, CDP #### [address] [place], [facility]83 Medical Accountant: Ryan Landin MD Monocytes (Bld) [#/Vol] 0.60 10*3/uL Normal 0.10-1.20 [facility] Comment on above: Performed By: #### B MP, CDP #### [facility] [address] [place] [address] Dr[place], [place] 6028583 Medical Accountant: Ryan Landin MD Monocytes/100 WBC (Bld) 9 % Normal 3-12 [facility] Comment on above: Performed By: #### B MP, CDP #### [address] [place], [place] [id number] Medical Accountant: Ryan Landin MD Neutrophil (Seg) 63 % Normal 36-65 [facility] Comment on above: Performed By: #### B MP, CDP #### [facility] [address] [place], [place] 8[address]1983 Medical Accountant: Ryan Landin MD NRBC Automated 0.0 per 100 WBC Normal 0.0 [facility] Comment on above: Performed By: #### B MP, CDP #### [facility] [address] [place], [facility]83 Medical Accountant: Ryan Landin MD Platelet mean volume (Bld) [Entitic vol] 9.5 fL Normal 8.1-13.5 [facility] Comment on above: Performed By: #### B MP, CDP #### [facility] [address] [place] [address] Medical Accountant: Ryan Landin MD Platelets (Bld) [#/Vol] 255 10*3/uL Normal 138-453 [facility] Comment on above: Performed By: #### B MP, CDP #### [facility] [address] [place] [address] Medical Accountant: Ryan Landin MD RBC (Bld) [#/Vol] 4.91 10*6/uL Normal 4.21-5.77 [facility] Comment on above: Performed By: #### B LIZ, CDP #### [facility] [address] [place] [address] Medical Accountant: Ryan Landin MD WBC (Bld) [#/Vol] 6.7 10*3/uL Normal 3.5-11.3 [facility] Comment on above: Performed By: #### B LIZ, CDP #### [facility] [address] [place] [address] Medical Accountant: Ryan Landin MD EKG 12 LeadOrdered By: Zheng Anderson on 05-01-2024 Atrial Rate 75 BPM [facility] Phone: P [place] 70 degrees [facility] [employer] [facility] Phone: P-R Interval 158 ms [employer]-transfection [facility]uc[facility] Phone: Q-T Interval 390 ms [facility] [employer] [facility] Phone: QRS Duration 86 ms [employer] [facility] Phone: QTc Calculation (Bazett) 435 ms [employer] [facility] Phone: R [place] 83 degrees [facility]ITALJASMEET [employer] Work Phone: T [place] 58 degrees [employer] Work Phone: Ventricular Rate 75 BPM KOKO HOFFMANN [employer] Work Phone: KOKO RICARDO [employer] Work Phone: EKG 12 Leadon 05-01-2024 Normal sinus rhythm with sinus arrhythmia Normal ECG When compared with ECG of 16-MAY-2022 17:35, No significant change was found Confirmed by COCO ANDERSON ([id number]) on 05/01/2024 12:05:02 PM [facility] Coco Anderson MD - 05/01/2024 Normal sinus rhythm with sinus arrhythmia Normal ECG When compared with ECG of 16-MAY-2022 17:35, No significant change was found Confirmed by COCO ANDERSON ([id number]) on 05/01/2024 12:05:02 PM [employer] US KIDNEYS BLADDERon 023 US KIDNEYS BLADDER EXAMINATION: [...] by: ERIKA HUMPHREY Date: 2023-03-14 10:06 Normal [facility] US KIDNEYS BLADDER [employer] Other US SINGLE QUAD RT UPPERon US [...] by: ERIKA HUMPHREY Date: 2023-03-14 10:04 Normal [facility] A1C with Estimated Average G [facility] 02-08-2023 A1C with Estimated Average Glu [employer] Other BILIRUBIN CONJUGATED (DIRECT )on 02-08-2023 BILI, CONJUGATED 0.1 mg/dL Normal 0.0-0.2 [facility] Comment on above: Performed By: #### P HOS, MG, DBIL, LIPID, VALP, CMP #### [facility] [address] [place] [address] Dr. aPm Granger CBC AUTO DIFFon 02-08-2023 BASO # 0.0 103/ul Normal 0.0-0.1 [facility] Comment on above: Performed By: #### C BC #### [facility] [address] [place] [address] Dr. Pam Granger Basophils/100 WBC (Bld) 0.9 % Normal 0.2-2.0 [facility] Comment on above: Performed By: #### C BC #### [facility] [address] [place] [address] Dr. Pam Granger EO # 0.1 103/ul Normal 0.0-0.7 [facility] Comment on above: Performed By: #### C BC #### [facility] [address] [place] [address] Dr. Pam Granger Eosinophils/100 WBC (Bld) 2.1 % Normal 0.9-7.0 [facility] Comment on above: Performed By: #### C BC #### [facility] [address] [place] [address] Dr. Pam Granger Erythrocyte distribution width (RBC) [Ratio] 13.5 % Normal 11.0-15.0 [facility] Comment on above: Performed By: #### C BC #### [facility] [address] [place] [address] Dr. Pam Granger Hematocrit (Bld) [Volume fraction] 43.8 % Normal 42.0-54.0 [facility] Comment on above: Performed By: #### C BC #### [facility] [address] [place] [address] Dr. Pam Granger Hemoglobin (Bld) [Mass/Vol] 15.0 g/dL Normal 14.0-18.0 [facility] Comment on above: Performed By: #### C BC #### [facility] [address] [place] [address] Dr. Pam Granger IG # 0.04 10e3/ul Critically high 0.00-0.03 [facility] Comment on above: Performed By: #### C BC #### [facility] [address] [place] [address] Dr. Pam Granger IG % 0.9 % Critically high 0.0-0.5 [facility] Comment on above: Performed By: #### C BC #### [facility] [address] [place] [address] Dr. Pam Granger LYMPH # 1.5 103/ul Normal 1.2-3.8 [facility] Comment on above: Performed By: #### C BC #### [facility] [address] [place] [address] Dr. Pam Granger Lymphocytes/100 WBC (Bld) 34.9 % Normal 20.5-60.0 [facility] Comment on above: Performed By: #### C BC #### [facility] [address] [place] [address] Dr. Pam Granger MANUAL DIFF REQ NO Normal [facility] Comment on above: Performed By: #### C BC #### [facility] [address] [place] [address] Dr. Pam Granger MCH (RBC) [Entitic mass] 31.2 pg Normal 25.9-34.0 [facility] Comment on above: Performed By: #### C BC #### [facility] [address] [place] [address] Dr. Pam Granger MCHC (RBC) [Mass/Vol] 34.2 g/dL Normal 29.9-35.2 [facility] Comment on above: Performed By: #### C BC #### [facility] [address] [place] [address] Dr. Pam Granger MCV (RBC) [Entitic vol] 91.1 fL Normal 80.0-94.0 [facility] Comment on above: Performed By: #### C BC #### [facility] [address] [place] [address] Dr. Pam Granger MONO # 0.6 103/ul Normal 0.3-0.8 [facility] Comment on above: Performed By: #### C BC #### [facility] [address] [place] [address] Dr. Pam Granger Monocytes/100 WBC (Bld) 12.6 % Critically high 1.7-12.0 [facility] Comment on above: Performed By: #### C BC #### [facility] [address] [place] [address] Dr. Pam Granger NEUT # 2.1 103/ul Normal 1.4-6.5 [facility] Comment on above: Performed By: #### C BC #### [facility] [address] [place] [address] Dr. Pam Granger Neutrophils/100 WBC (Bld) 48.6 % Normal 43.0-75.0 [facility] Comment on above: Performed By: #### C BC #### [facility] [address] [place] [address] Dr. Pam Granger Platelet mean volume (Bld) [Entitic vol] 9.0 fL Critically low 9.5-13.5 [facility] Comment on above: Performed By: #### C BC #### [facility] [address] [place] [address] Dr. Pam Granger PLT 238 103/ul Normal 150-450 [facility] Comment on above: Performed By: #### C BC #### [facility] [address] [place] [address] Dr. Pam Granger RBC 4.81 106/ul Normal 4.70-6.10 [facility] Comment on above: Performed By: #### C BC #### [facility] [address] [place] [address] Dr. Pam Granger WBC 4.4 103/ul Normal 4.0-11.0 [facility] Comment on above: Performed By: #### C BC #### [facility] [address] [place] [address] Dr. Pam Granger DEPAKENE/ VALPROIC ACIDon DEPAKENE 54.5 ug/ml Normal 50.0-100.0 [facility] Comment on above: Performed By: #### A 1C #### [facility] [address] [place] [address] Dr. Pam Granger GLYCOHEMOGLOBIN A1Con 2022 ADA RECOMMENDATION SEE BELOW Normal [facility] Comment on above: Result Comment: ADA RECOMMENDED LIMIT 4.0 - 6.0 ADA THERAPEUTIC TARGET < 7.0 ACTION SUGGESTED > 7.0 Performed By: #### A 1C #### [facility] [address] [place] [address] Dr. Pam Granger Glucose [Mass/Vol] 174 mg/dL Normal [facility] Comment on above: Performed By: #### A 1C #### [facility] [address] [place] [address] Dr. Pam Granger HbA1c (Bld) [Mass fraction] 7.7 % Critically high 4.5-6.2 [facility] Comment on above: Performed By: #### A 1C #### [facility] [address] [place], [place] [address] Dr. Pam Granger LIPID PROFILEon 02-08-2023 CHOL-HDL RATIO NORM SEE BELOW Normal [facility] Comment on above: Result Comment: 3.3 - 4.4 LOW RISK 4.4 - 7.1 AVERAGE RISK 7.1 - 11.0 MODERATE RISK >11.0 HIGH RISK Performed By: #### P HOS, MG, DBIL, LIPID, VALP, CMP #### [facility] [address] [place] [address] Dr. Pam Granger Cholesterol [Mass/Vol] 163 mg/dL Normal <=200 [facility] Comment on above: Performed By: #### P HOS, MG, DBIL, LIPID, VALP, CMP #### [facility] [address] [place] [address] Dr. Pam Granger Cholesterol in HDL [Mass/Vol] 50 mg/dL Normal 40-60 [facility] Comment on above: Performed By: #### P HOS, MG, DBIL, LIPID, VALP, CMP #### [facility] [address] [place] [address] Dr. Pam Granger Cholesterol in LDL [Mass/Vol] 83.6 mg/dL Normal [facility] Comment on above: Performed By: #### P HOS, MG, DBIL, LIPID, VALP, CMP #### [facility] [address] [place] [address] Dr. Pam Granger Cholesterol.total/C holesterol in HDL [Mass ratio] 3.3 {ratio} Normal [facility] Comment on above: Performed By: #### P HOS, MG, DBIL, LIPID, VALP, CMP #### [facility] [address] [place] [address] Dr. Pam Granger HDL NORMAL > or = 60 mg/dl - LOW CARDIOVASCULAR RISK <40 mg/dl - HIGH CARDIOVASCULAR RISK Normal [facility] Comment on above: Performed By: #### P HOS, MG, DBIL, LIPID, VALP, CMP #### [facility] [address] [place] [address] Dr. Pam Granger LDL CALC NORMAL SEE BELOW Normal [facility] Comment on above: Result Comment: <100 mg/dl OPTIMAL 100 - 129 mg/dl NEAR OR ABOVE OPTIMAL 130 - 159 mg/dl BORDERLINE HIGH 160 - 189 mg/dl HIGH >190 mg/dl VERY HIGH Performed By: #### P HOS, MG, DBIL, LIPID, VALP, CMP #### [facility] [address] [place] [address] Dr. Pam Granger Triglyceride [Mass/Vol] 147 mg/dL Normal <=150 [facility] Comment on above: Performed By: #### P HOS, MG, DBIL, LIPID, VALP, CMP #### [facility] [address] [place] [address] Dr. Pam Granger VLDL CALC 29.4 mg/dL Normal [facility] Comment on above: Performed By: #### P HOS, MG, DBIL, LIPID, VALP, CMP #### [facility] [address] [place] [address] Dr. Pam Granger MAGNESIUMon 02-08-2023 Magnesium [Mass/Vol] 2.0 mg/dL Normal 1.8-2.4 [facility] Comment on above: Performed By: #### A 1C #### [facility] [address] [place] [address] Dr. Pam Granger PHOSPHORUSon 02-08-2023 Phosphate [Mass/Vol] 3.4 mg/dL Normal 2.6-4.7 [facility] Comment on above: Performed By: #### P HOS, MG, DBIL, LIPID, VALP, CMP #### [facility] [address] [place] [address] Dr. Pam Granger PROF 14(COMP METB)on 023 Albumin [Mass/Vol] 4.0 g/dL Normal 3.4-5.0 [facility] Comment on above: Performed By: #### A 1C #### [facility] [address] [place] [address] Dr. Pam Granger Albumin/Globulin [Mass ratio] 1.2 {ratio} Normal [facility] Comment on above: Performed By: #### A 1C #### [facility] [address] [place] [address] Dr. Pam Granger ALP [Catalytic activity/Vol] 69 U/L Normal 46-116 [facility] Comment on above: Performed By: #### A 1C #### [facility] [address] [address] [address] Pam Granger ALT [Catalytic activity/Vol] 17 U/L Normal 16-63 [facility] Comment on above: Performed By: #### A 1C #### [facility] [address] [address] [address] Pam Granger Anion gap [Moles/Vol] 19.7 mmol/L Normal [facility] Comment on above: Performed By: #### A 1C #### [facility] [address] [place] [address] Dr. Pam Granger AST [Catalytic activity/Vol] 11 U/L Critically low 15-37 [facility] Comment on above: Performed By: #### A 1C #### [facility] [address] [place] [address] Dr. Pam Granger Bilirubin [Mass/Vol] 0.3 mg/dL Normal 0.2-1.0 [facility] Comment on above: Performed By: #### A 1C #### [facility] [address] [place] [address] Dr. Pam Granger Calcium [Mass/Vol] 9.8 mg/dL Normal 8.5-10.1 [facility] Comment on above: Performed By: #### A 1C #### [facility] [address] [place] [address] Dr. Pam Granger Chloride [Moles/Vol] 106 mmol/L Normal 98-107 [facility] Comment on above: Performed By: #### A 1C #### [facility] [address] [address] [address] Pam Granger CO2 [Moles/Vol] 24.4 mmol/L Normal 21.0-32.0 [facility] Comment on above: Performed By: #### A 1C #### [facility] [address] [address] [address] Pam Granger Creatinine [Mass/Vol] 0.78 mg/dL Normal 0.70-1.30 [facility] Comment on above: Performed By: #### A 1C #### [facility] [address] [place] [address] Dr. Pam Granger EGFR-AF MONTSERRATIAN >60 Normal >=60 [facility] Comment on above: Performed By: #### A 1C #### [facility] [address] [address] [address] Pam Granger EGFR-NON AF [place]ERR[place] >60 Normal >=60 [facility] Comment on above: Performed By: #### A 1C #### [facility] [address] [address] [address] Pam Granger Globulin (S) [Mass/Vol] 3.4 g/dL Normal [facility] Comment on above: Performed By: #### A 1C #### [facility] [address] [place] [address] Dr. Pam Granger Glucose [Mass/Vol] 162 mg/dL Critically high 74-106 [facility] Comment on above: Performed By: #### A 1C #### [facility] [address] [place] [address] Dr. Pam Granger Potassium [Moles/Vol] 4.1 mmol/L Normal 3.5-5.1 [facility] Comment on above: Performed By: #### A 1C #### [facility] [address] [place] [address] Dr. Pam Granger Protein [Mass/Vol] 7.4 g/dL Normal 6.4-8.2 [facility] Comment on above: Performed By: #### A 1C #### [facility] [address] [place] [address] Dr. Pam Granger Sodium [Moles/Vol] 146 mmol/L Critically high 136-145 [facility] Comment on above: Performed By: #### A 1C #### [facility] [address] [place] [address] Dr. Pam Granger Urea nitrogen [Mass/Vol] 9.0 mg/dL Normal 7.0-18.0 [facility] Comment on above: Performed By: #### A 1C #### [facility] [address] [place], [place] [address] Dr. Pam Granger Urea nitrogen/Creatinine [Mass ratio] 11.5 mg/mg Normal [facility] Comment on above: Performed By: #### A 1C #### [facility] [address] [place], [place] [address] Dr. Pam Granger TSHon 02-08-2023 TSH 3.967 uIU/mL Critically high 0.358-3.740 uIU/mL [employer] [facility] Other TSH see note [employer] Other TSH 3.967 uIU/mL Critically high 0.358-3.740 [facility] Comment on above: Performed By: #### A 1C #### [facility] [address] [place], [place] [address] Dr. Pam Granger XR CHEST 2 Von [...] by: MINA PALACIOS Date: 2023-02-08 09:39 Normal [facility] Patient Letter FTMCon 2022 Patient Letter [facility] January 16, 2023 HARI THORNTON [address] [address] HARI THORNTON 1975 Below is a summary [...] letter prior to your next due date. [facility] Extenda-Dent [facility] [phone] [facility] Reminderson 01-16-2023 Reminders - From: Deonna Russo [...] tubular adenoma and severe diverticulosis (2027). Normal [facility] IntraOperative Documentson 0 01-09-2023 IntraOperative Documents [id number] #1.00CD:127 Normal [facility] Coding Summary.on 01-07-2023 Coding Summary. CD:[id number] Gh0bWw+PGhlYWQ+PE1FV MDiZ11dhXLuoQ2XP1sSZ S4BGNEJQOZTSC8JUM8cj CJ4NQxeE4OuojFa GzycnKOoKR82XQw9PJP1 yCrtYPyejR8hrWVuZ2e6 NhPhCI61uZ92EJipVZCo RdL8RpHvhihtnRZt O2lxNmLssWOdEko+PHRh YmxlIHdpZHRoPScxMDAl LjDzbQdlBJ7yTu3dOJXq LWNvbGxhcHNlOiBj c3xeHYDrLQhuCC2vaHwq I4IyyLU8LAKmn6y3Im45 dHI+VFXtHXO9pYloCSpv w719OaNrn3bwUWB6 iFQnQBexZQI0R00vy9D2 YXMiFUCzKZN5uJU6bR7x nVsthjqfB0DwuLGrJgP1 YMY1tCCwhE9rdZvm rjrirR8cQcu+A82YSX2U YNAZUN4VLsq6C3FnUccq dHI+VW38QSUtOR81jCNz dTObj2hmjAn4XjNr KQTqGSN9xAygEPldk1Bm SWBiQ01nkVPzm1T1NZQh xSemgMQnOqEzjHK0bB0w EMzfmoxed8kmqgid Qqkss5ltxg06lJ40E13c YHvlFKCyMEH6HBAkUYKu wIpzly8yaY1nZd4+IDxj e7ewo3utgZa4JnZv AGWdykXdgKvvUWH3i6Pg Ah75L0VytNkgn1OhRuj6 ip82tSAkz4V1bZX9NPwj YNNedD4hHRfcYpV2 RVJlXtIciR24vCBhEWei Mo9lmVuapOjjYS4pMLDw oidbGFVfcI9bPDWaaUYm oZjoAQ5iAUXigphy f991WvQxSTJ5EKHqhZGp I8HhzH7nBpIoGLRiRGJr K2YerGMmKQqzC987EVuk VgC3UWMxevLpS2Rg IZCqsLkdDyH1r3F0Bt2Z l8UupxyoAAU9ZYwcOUUo RiAbOcUpGnA5D2TvVxt1 BTLrmXqhZG7bW3Bl QXEbjwyyqwmjiGN9QNXc TEEhnO87nPPbUQltOf8u i5U2b245SKXzDXSfxK49 Jr0ukXmuGLXmnACP dA1odqotv5swvmspJzJp GEIxOZs8GVv6JJClqQaj KiDmDIJ9XuF9MTG6pRBw sX7owEnqhpdddL3n Oyc+P40ntZ4aILH8EEX2 jvnaKSFgkdLfAM93UD10 A7BxMxyxaTBbtND+PGRp myPndVfqXI6xVoDn q1hia3YhUSfvP0XgMHIx KPkhAfx3DKVsUUW7aZQ4 tQ7hASWnDZhhd8Q1nTC6 B8KfjuLpyc0aq2vr WRTjXDhbC11rfBRnl4B6 BHRraPC1DEBazNlgJsDm nJ05Mut+SSZshGwda2An Atctv9brb1xurRq9 IjMwJSIgdmFsaWduPSJ0 v2XjFa96D85kBYnxGKUg BNYaSGVuPXGvvJsfah5q mS6jQx0+PGNvbCB3 dBW9sT0dGXTmBcN1WTkh S015FxOjeWWmHkete6vt p5gwtMi4LpBjYJMfkaLr oUckCPN5l2QlWg27 R70jWRhhJWUqMMGxSPDv JUTopHnxgh8idN0yAp6+ GY3rg1xvuf29iQ09nUI+ JFNlWMJ0zJfeTPad SXIzuN5vZYwcFbS5FMEs NpPinC96bZIpYMijBq6n mMnotZqcCO6mRILzaxyc n035MaAea5ygVLSc tRAxNQgrDQX4L54nx3H8 PYPtPVDnAEY1gNJ7zJ9h bGlnbjogbGVmdDsgdmVy pKoqIRpnBNauJ531 IHRvcDsnPlBhdGllbnQg WhOgOFl4E4UlXih6ZHZp iMdcOG2qnALcJQwiNn2w fBzfzLgbAI7yQVWd dndvk316GzUpw4qfABNc tGIlVHdwPVT7J51lg1C9 MCVeQYNhTGE5fSL9tI5d bGlnbjogbGVmdDsg mhCzeCilFSvsCAdlV347 IHRvcDsnPkJpcnRoIERh jRJ6EC31RM00vVSba5W5 tQI9F9QlPHHwrvoc sheoyLG3RUXkOKXyqK24 Ab9jsQgaCs4qJVSfZDY1 ZTQwiDEcE2XwnL7gJjLv HCYoZIRuB7RihMDx WSmkS708KWwmZaM3TCZn bfCmT4NyHNJmaJjiDgG0 o9D6Ub6XG2H8EN02EU58 xITpi1W5uJF1K2Zb MLTvailsifhudSN2RYIa TNVpoI02Iv1ynIqpQf9n MEBxJZY6MROshAWnU4Lq tB2hWrKwRAVxNYDk H4DkvHOgAXfsH914NCtf KtI9DVYyaiWcH7RlHTPn zBhnVyL7q0S7Zy3NAQn1 NB55OF47wIWkk8Q0 mZV4X0WjCKHdbrhwkljo vVZ8ELNyWWMoxD00Mu7e uArjTd7zEROcOFA0MAWz hWSuP4EzxJ9zCaIg NVTqYTHnN0IidNTxIMcg F277TEpgYvV5KLFzodQw H8GvEGKoyLazSwV2i5H2 Wo6AINQsEV16TVX0 tBV3AR50EO27L2WpAgwu dGFibGU+PHRhYmxlIHdp ZHRoPScxMDAlJyBzdHls XE6lDz8iAKXsXGEn kEkfcZAyNkLtn1pxRACf JRteKZ7kqNhvZ8BdiUM2 LGRac1f3Nj59E31tN4Ds dXA+ALHenXP3dXZ4 lZ7bPpEgUxX5BNpfA204 AvVruFGzVilhd3ffn3rl tAr0BuP9FLBtmpZekKzf ZGU9q2GgOy02A90v IHdpZHRoPSIxNSUiIHZh tNcvax1zwB8dWk9+PGNv pRK8rPW5oG4wZtRvPjN8 XTyoW956CrAieMYj Yzcpw9hoi9klxJe9BaVy MCExerStyLsbBAI4k5Il Zn47R1KtqXirz8KqNry3 uo89nPDwy1U1uWU0 P2KmKCLzwcuzlHDslGzl BK1iGVUflqidSTCjrK3z TCSsZ4h7UlGsItT8ECuj H6QnxvB4ZCGjmPPe AAqhJIX1S53wv6Y4AAVs BBCqAVI8pAB3vS7hlJms bjogbGVmdDsgdmVydGlj CBkaCLzzE405MQRx kUhgGLXylS4kSNIsjZYg eZkeNL3rPIRfegydYbuH KU1GYFWSLAqXOWBEBAC7 L2PgUbh1IJOrlEug LX3itMWnTRzoZm6unWbm yBueBS7cNBKiiwfaSYMk qJ8xOMKbhFKnqJqeYX8n OFPcmrkuq197BpVy AWX4KGOfzGXrB7NduJ6e ZvMnQMCiHPZpW7JxvTFl EUpoM910EDtwTbU9OTWp ccXhC2IbEPWcvMtz FlW7s1V2Qp8mYP8yXI0j ZFljID20TU59cUYmq6D2 fUA0W0QtRLUbrskgqbuz tZS3HLUpIEClkA20 tCDxNKojGd6pr5B8c101 HQLbPSCsiF61Ax0aqWzm VLNwgYMUlI3aoljrz2sg cjogIzAwMDAwMDt0 JCt9ZMDzdTxqCdWuGVV6 EnJ1VMG2yCIudE6kvEuh ukywaT9uOvz+NDkgWWVh mbQ6A4HmLyi1LDGx cFqwQJ6mpFBoWTzgSy5t aBldtOurVS9yABHgujeu NJLscT0wYBCrgPKauYlj HK5pZITdetzlc531 YcWnUNA3ZJJuwLBsO4Yb zD0cNpCmMNXpJFYkH6Lx tHBlKKmyG164WNppIrZ6 EFVezrRhA9LtSGFc bLuyExL2f6K7Pz4JHDvn OP83HK29mXUcj6P5nZD9 N8ApQIEkmggrwybujDW4 PSSvVZCutM40wYIv FAezPg9me7A4i042GPSg RAQpsR60Am8vqHfrXWAr vLMJiL8zyakys8angllg EeUvLWPiWCr6GIj6 KYLrdCsuLjBgSUO5XaA5 IHS1jJTszR8obEfukodl dG1oPvn+M4G4wDV8yHEx dDwvdGQ+JU74jm58 X5UrTjmfUgy5KHDgDEB7 nDP5kS6hYYFeJAvwk4N0 aQB5Y8YftxIogi9vd5fj RBUmCMekR53pvCLs z4R7WGCbuHT5WOYyaLij OtFhhQ94Ymn+PGNvbGdy l1ZnYwkiq2yrd5dhsEs4 IjMwJSIgdmFsaWdu UDO9k4YvQv56Y28kRVdh ZHRoPSIzMCUiIHZhbGln kk4zkQ6lPy6+PGNvbCB3 kPO9dF9jMoJyQnR1 JMbvS694CpVyiOQkAxzo n2ytb7jltMi2EhTsBAKw alIieFqbROS3n7SeYc50 Q4UhcAwcp7ThBnk1 fp69zWSko8N0iNG9Y6Xm QORexqwxoCCudDjsEB6r RNRcakaaEYJglG0hNQYl R2u3YwPuLnK5KInp O7LdyaT8ONMzhLVoIQHj gCDYlW4lqazok5zlczof GwLlULUzDRj9UQp2TEZb jEqoKtMeGEY4LpA2 HZF9xEGksE6vnSgylpry mF7dVqq+DNl2m5sqdAYh RE7gwBA9MV02JN05cMHg i3I9jZD1M5BeEXTg lmzbgjactEW4MARlMOXy pZ80Qm2uaPkdDc6aWQOl FHR0AVGzmYMqE6KigB7a GiEoDVCxTPHzP7Wt gITxISvkN470ACkwVuY0 XYCivpGnH0ChDVCaxFcu GmJ5p6D8Dy0DEM29LD18 ZF63kFKmg0T9uAU5 T2CaQFZjlaiyaypxxNX1 CWOkEXChpV36Wd7fsRfs Rw8wIWKyRVD3VPEzlSGa N2ZdeC8aClBoUTXu EBIaP9HhwZYaVAunW164 RMdpNqW6LTSfajBmE9Oz GUKubMteXcX1q7P9Lv1W Zp66DS32RN59qZYp m5P5nWN0X9RsHTSgsatv btgwjIG3NPBvFQAugR94 Qx6aeOtrYk2pUAMsIBD4 XCEkbITiW2ZvaD2j HfWuZUXgQQDiE6PtzVPm MFomM171OUfgLwZ3BLMm ngLsD1YlZOIzsYxyRiA4 o2I3Oh6AMHdxkka8 P8BsOabbzNX+BT39BKFx BS96uKIkaFUos2jqpRw2 WrMjWLZuJJR1aOzuPKwi e6WfGQFcZ04sfOMb c2U6 (more content not included)... [facility] Postoperative Documentson Postoperative Documents [id number] 7#1.00CD:127 [facility] Consenton 01-03-2023 Consent [id number] 9#1.00CD:127 [facility] Discharge Instructionson Discharge Instructions [id number] 7#1.00CD:127 [facility] IntraOperative Documentson 0 01-03-2023 IntraOperative Documents [id number] 2#1.00CD:127 [facility] Main OR Intraoperative Recor don 01-03-2023 Main OR Intraoperative Record IntraOp Document Type FT Summary Primary Physician: Sylvester FITZPATRICK MD Finalized Date/Time: 01/03/23 09:19:49 Pt. Name: HARI THORNTON Jose Alfredo Hill/Sex: 1975 Male Med Rec #: [id number] Physician: Sylvester FITZPATRICK MD Financial #: [id number] Pt. Type: O Room/Bed: / Admit/Disch: 01/02/23 [...] 1 Entry 2 Entry 3 Case Attendee Iza Sanders CRNA RN, Christel Booth Role Performed [employer] Research Lab Assistant - Primary Scrub - Primary Time In 01/02/23 12:23:00 01/02/23 12:23:00 01/02/23 12:23:00 Time Out 01/02/23 12:49:00 01/02/23 12:49:00 01/02/23 12:49:00 Procedure EGD AND COLONOSCOPY(.) EGD AND COLONOSCOPY(.) EGD AND COLONOSCOPY(.) Comments Dr. Ramey supervising procedure. Last Modified By: Ca Antoine CST RN, Briseida Couch RN, Briseida Lipscomb 01/03/23 09:18:58 01/02/23 12:50:05 01/02/23 12:50:05 Entry [...] Out Marilyn DE LA PAZ, Given Participants Iza Padilla RN, Kara N, DEMETRIA ANN, Eliot Phan Kirstyn K Time Out Complete 01/02/23 12:25:00 Outcomes Met? Yes Last Modified By: Briseida Couch RN 01/02/23 12:26:04 Post-Care Text: The patient is free from signs and symptoms of injury caused by extraneous objects Allergy Information FT Pre-Care Text: Verifies allergies Entry 1 Allergies Reviewed? Yes Allergies Reviewed Self/Patient With Outcomes Met? Yes Last Modified By: Briseida Couch RN 01/02/23 09:48:08 Post-Care Text: The patient [...] and tissue Entry 1 Skin Integrity Intact, Renfrow, Warm, and Skin Abnormality No Dry Outcomes [...] patient f (more content not included)... Normal [facility] Consent for Treatmenton Consent for Treatment [id number] #1.00CD:127 Normal [facility] Consultation Noteon 01-02-20 Endoscopic Procedure Report [...] 1. Proximal esophageal ring, dilated using 56 Khmer Engle dilator 2. Normal gastric mucosa, biopsied to rule out H. pylori 3. Normal duodenal mucosa Images Procedure images: Rec1_hd_video_3_0 2_08T12_34_03_010.truman g Rec1_hd_video_3_0 2_08T12_33_38_671.truman g Rec1_hd_video_3_0 2_08T12_33_53_377.truman g . Post-Procedure Complications: none. Estimated blood loss: none. Specimens: sent to pathology. Devices/ implants: none left in place. Impression and Plan 1. Proximal esophageal ring, dilated using 56 Khmer Engle dilator 2. Normal gastric mucosa, biopsied to rule out H. pylori Recommendations: Follow-up in GI clinic in 2 weeks .. Normal [facility] Comment on above: Result Comment: Elec tronically Signed By: Sylvester FITZPATRICK MD\.br\Date and Time Signed: 01/02/23 12:52 EST Other Comment: Coleen muller Attachment - attachment storage system not supported [id number] Can be viewed in source systemMissing Attachment - attachment storage system not supported [id number] Can be viewed in source systemMissing Attachment - attachment storage system not supported [id number] Can be viewed in source system Consultation [...] 1. Proximal esophageal ring, dilated using 56 Khmer Engle dilator 2. Normal gastric mucosa, biopsied to rule out H. pylori 3. Normal duodenal mucosa Images Procedure images: Rec1_hd_video_3_0 2_08T12_34_03_010.truman g Rec1_hd_video_3_0 2_08T12_33_38_671.truman g Rec1_hd_video_3_0 2_08T12_33_53_377.truman g . Post-Procedure Complications: none. Estimated blood loss: none. Specimens: sent to pathology. Devices/ implants: none left in place. Impression and Plan 1. Proximal esophageal ring, dilated using 56 Khmer Engle dilator 2. Normal gastric mucosa, biopsied to rule out H. pylori Recommendations: Follow-up in GI clinic in [address] [facility] Comment on above: Result Comment: Elec tronically Signed By: Sylvester FITZPATIRCK MD\.br\Date and Time Signed: 01/02/23 12:34 EST Other Comment: Coleen muller Attachment - attachment storage system not supported [id number] Can be viewed in source systemMissing Attachment - attachment storage system not supported [id number] Can be viewed in source systemMissing Attachment - attachment storage system not supported [id number] Can be viewed in source system Endoscopic [...] Moderate nonbleeding internal hemorrhoids Images Procedure images: Rec1_hd_video_3_0 2_08T12_49_58_135.truman g Rec1_hd_video_2022_0 2_08T12_45_32_419.truman g Rec1_hd_video_3_0 2_08T12_43_32_936.truman g Rec1_hd_video_3_0 2_08T12_45_59_605.truman g . Post-Procedure [...] Return to activities:: After 24 hours. Normal [facility] Comment on above: Result Comment: Elec tronically Signed By: Sylvester FITZPATRICK MD\.br\Date and Time Signed: 01/02/23 12:53 EST Other Comment: Coleen muller Attachment - attachment storage system not supported [id number] Can be viewed in source systemMissing Attachment - attachment storage system not supported [id number] Can be viewed in source systemMissing Attachment - attachment storage system not supported [id number] Can be viewed in source systemMissThe Online 401 Attachment - attachment storage system not supported [id number] Can be viewed in source system Inpatient Patient Summaryon 01-02-2023 Inpatient Patient Summary [address] [address] [facility] Clinical Discharge Instructions PERSON INFORMATION Name: HARI THORNTON PHYSICIANS Admitting Physician: Sylvester FITZPATRICK MD Attending Physician: Sylvester FITZPATRICK MD PCP: NARAYAN GAGNON DO Discharge Diagnosis: Diarrhea Comment: PATIENT EDUCATION INFORMATION Instructions: Endoscopy, Care After Procedure [facility] (CUSTOM); Esophageal Dilatation; Colonoscopy, Care After Surgery [facility] (CUSTOM); Diverticulitis, Hlgf-jr-Ppug; Colon Polyps; Hemorrhoids, Vrua-xx-Wqjc Medication Leaflets: Follow up: With: Address: When: Sylvester FITZPATRICK [address] [place] [address]. [address] [place], [place] [id number] Business (1) Comments: Call for any problems. Office [...] every day., high heart rate Comment: Normal [facility] Main OR PACU I Recordon Main OR PACU I Record PACU Phase I Document Type FT Summary Primary Physician: Sylvester FITZPATRICK MD Finalized Date/Time: 01/02/23 13:17:59 Pt. Name: HARI THORNTON/Sex: 1975 Male Med Rec #: [id number] Physician: Sylvester FITZPATRICK MD Financial #: [id number] Pt. Type: O Room/Bed: / Admit/Disch: 01/02/23 [...] I Outcomes Met? Yes Last Modified By: Shira Tyler RN 01/02/23 13:17:43 Post-Care Text: The patient demonstrates [...] By: Shira Tyler RN 01/02/23 13:17 Normal [facility] Main OR Preoperative Recordo n 01-02-2023 Main OR Preoperative Record Holding Area Document Type FT Summary Primary Physician: Sylvester FITZPATRICK MD Finalized Date/Time: 01/02/23 11:55:04 Pt. Name: HARI THORNTON /Sex: 1975 Male Med Rec #: [id number] Physician: Sylvester FITZPATRICK MD Financial #: [id number] Pt. Type: O Room/Bed: / Admit/Disch: 01/02/23 [...] patient tolerated well, last bowel movement clear yellow./BARBI,RN Finalized By: Stacia Camara RN Document Signatures Signed By: Stacia Camara RN 01/02/23 11:52 Stacia Camara RN 01/02/23 11:55 Normal [facility] Monitor Recordon 01-02-2023 Monitor Record [id number] 7#1.00CD:127 Normal [facility] Monitor Record [id number] 8#1.00CD:127 Normal [facility] Monitor Record [id number] 8#1.00CD:127 Normal [facility] Outpatient Surgery Discharge Instructionon 01-02-2023 Outpatient Surgery Discharge Instruction [address] [address] Patient Discharge Instructions PERSON INFORMATION Name: HARI [...] NEAREST EMERGENCY ROOM OR CALL 911 [address] HARI Jose Alfredo, have received the attached patient education materials/instructio ns and have verbalized understanding: May we do a follow up call? Yes No I was present when discharge instructions were given Patient Signature Date Clinican/Nurse Signature Date Follow up: With: Address: When: Sylvester FITZPATRICK [address] [place] [address]. [address] [place], [place] [phone] Business (1) Comments: Call for any problems. Office will call for follow up appt Pharmacy Information: Other: [facility] You may receive a survey from [facility] asking you to rate your care experience. Your feedback is important and will help us understand what we do well and how we can improve the quality of care we provide to you, your loved ones and our community. It?s an honor to serve you. Thank you for choosing [facility] HERE ARE THE MEDICATION CHANGES THAT OCCURRED [...] your c (more content not included)... Normal [facility] Progress Note-Physicianon Progress Note-Physician Patient: HARI THORNTON Age: 47 years Sex: Male : 1975 Associated Diagnoses: None Author: Keyon Ramey MD Postoperative Information Postoperative disposition: Postoperative disposition: To PACU. Optimetrix number: Optimetrix number [id number]. Anesthetic utilized: Monitored anesthesia care. 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 Depression / SNOMED CT 55996964 / Confirmed Diabetes mellitus / SNOMED CT 309348176 / Confirmed Dysphagia / SNOMED CT 32679083 / Confirmed Dysuria / SNOMED CT 27409534 / Confirmed Hearing loss / SNOMED CT 29419322 / Confirmed Heart murmur / SNOMED CT 537419757 / Confirmed Heartburn / SNOMED CT 87758360 / Confirmed History of colon polyps / SNOMED CT 3362562297 / Confirmed Hydrocele / SNOMED CT 7297097817 / Confirmed Hyperlipidemia / SNOMED CT 56418921 / Confirmed Hypertension / SNOMED CT 0389459146 / Confirmed Irregular bowel habits / SNOMED CT 1410439049 / Confirmed Neoplasm of lung / SNOMED CT 113933675 / Confirmed Nocturia / SNOMED CT 306961178 / Confirmed Obstructive atelectasis / SNOMED CT 40110406 / Confirmed Post-void dribbling / SNOMED CT 637789901 / Confirmed Proteinuria / SNOMED CT 96959303 / Confirmed Psychiatric illness / SNOMED CT 270444911 / Confirmed Schizophrenia / SNOMED CT 85590961 / Confirmed Testicular swelling / SNOMED CT 6834621031 / Confirmed Type 2 diabetes mellitus / SNOMED CT 576894103 / Confirmed Urge incontinence / SNOMED CT 331280318 / Confirmed Urinary frequency / SNOMED CT 026921512 / Confirmed Urinary reflux / SNOMED CT 4837480112 / Confirmed 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 Normal [facility] Comment on above: Result Comment: Elec [...] Auto 47.3 % Lymph Auto 35.8 % Marin Auto 15.7 % HI Eos Auto 0.4 % Basophil Auto 0.8 % Neutro Absolute 1.9 E9/L LOW Lymph Absolute 1.5 E9/L Marin Absolute 0.6 E9/L Eos Absolute 0.0 E9/L [...] 1 EA, Refill(s) 0, Prior to colonoscopy., [facility], 171, cm, 11/01/22 12:17:00 EST, Height/Length Dosing, 78.9, kg, 11/01/22 12:17:00 EST, Weight Dosing omeprazole 40 mg Cap-DR: 40 mg = 1 cap(s), Oral, Daily, X 90 day(s), # 90 cap(s), Refills(s) 0, Pharmacy: [facility], 171, cm, 11/01/22 12:17:00 EST, [...] cap(s), Ora (more content not included)... Normal [facility] Comment on above: Result Comment: Elec tronically Signed By: Tanvir ANN, Keyon Narayan.br\Date and Time Signed: 01/02/23 11:40 EST Giardia, Direct, EIAon 12-28 G. lamblia Ag IA Ql (Stl) Negative Invalid Interpretation Code Negative [facility] Comment on above: Result Comment: Perf ormed at: [address] [id number] PhD Paul Mejia Performed By: #### 1 [id number], [id number], [id number], [id number], [id number], [id number] ####[facility] [address] [place] [address] O & P EXAM, ROUTINE, REFLEXo n 12-28-2022 Ova and parasites identified Concentration Nom (Stl) Comment Invalid Interpretation Code [facility] Comment on above: Result Comment: No o va, cysts, or parasites seen. One negative specimen does not rule out the possibility of a parasitic infection. Performed at: [address] [id number] PhD Paul Mejia Performed By: #### 1 [id number], [id number], [id number], [id number], [id number] ####[facility] [id number] [place] [address] O & P Exam, Routineon 2022 Ova and parasites identified LM Nom (Unsp spec) Final report Invalid Interpretation Code [facility] Comment on above: Result Comment: Thes e results were obtained using wet preparation(s) and trichrome stained smear. This test does not include testing for Cryptosporidium parvum, Cyclospora, or Microsporidia. Performed at: [address] [id number] PhD Paul Mejia Performed By: #### 1 [id number] ####[id number] [place] [address] Coding Summary.on 12-26-2022 Coding Summary. CD:[id number] Gh0bWw+PGhlYWQ+PE1FV EFiD19ueSLvvG8UZ3sSP N5PXFICNGOUVL3LAQ4vy DN8BAmvN6XouuFw PqvbyJVvGK30WMd9AZU4 zKobUKenrG0iiTLrM9h4 PfGlLF33kV82PNyhAWWn SzR1LdYdpkdeaLLj W0yhSuNknWAxQhz+PHRh YmxlIHdpZHRoPScxMDAl BgPwnRjhSJ4dIt6iUBZp LWNvbGxhcHNlOiBj p3gfDSXsQGshRJ7dcHyp M7RsjYH0RAHqt7q0Cm09 dHI+OXBrMWN1fDscVCqm e005PbPve3lhBAP7 gABiKJluMVF4O03pp1G3 DMUjQMYoKHO1pEY8cT3p xFtymneuP9XobQFnEwC1 ITH8rLJzwM1iaLjv pfhdsJ5kLjd+N68TCC3B QAAPAQ0VEwa1V5XiPtna dHI+AJ16JAHfCD99tNPc qWZdd0ccfBh0YmDp NZLiFYV3jAqyXIfnh5Js YWNuS58iqYCcl0S6JQPn gXeilNKjNgBlcKL6fL8e BGzkutkyo6isuzhd Mgonn7qmzg38yY49Z69r ISwdFUMtQLO9QZZxOEKr uUpuli6jkA3pKp7+IDxj z2dip7auiCa3VtFc FNFkgzVulXxmWCW4u6Ko Km04C0OfzNmcz5OeLof2 zh51xDTdv1Q4nKM1WOrx BUPtpF9jCWiqEmC4 ZNWzPfLioZ14bVZzXRyy Bv5jfCcjvFjrHT3qFVGm tsxwFLAmiH3qOIGnpNJa kHjsCP1zGGAupnim y146OsDsLSN9XSNmtMAk K4HorI8bDyUnZJOaJWYm U7ZtyMPoCZkkD621VFro WcI5MSNbukDrN2My ITQueSwgFtP6p2K5Ry7S a9DsiumtJZO5YDrkKNJo RyCvHuVuUdF5Z9UlCro8 FEJxgVpiNW1tQ7Xz YGUfottkduwvsDV8HLUv LONjyK26lQBsFThuAo1o w1L9b696BRTlIVMrnT80 Fd0uyJspPAWkuRTO eM9wpttnv3avoraaKuUf GFNhJTm8ZHa1RPLlsPqs NrUqDIS7YrY8YXE0cSIf uW8zyTnwbcxfdK7m Oyc+I63ysS0kWVF0NFX1 ynhbBJZfabKzKP77HP17 X6QnZjnrtXNnyZZ+PGRp spHpmZcbPG4vPiSy t0evq1CsIMgsN2DxXOLt SOeuLeh3LCQdZGN2yLN1 jC7nPHQlDMpuy3J6fAY4 Q0OczwNcrz3ro5di RPUlLWxhK47jrOYza7T4 ONSpqCD7SGQaiHkxPrYu oA78Sbt+WIWfwSlmz4Go Mfigo7hrn5gggBu5 IjMwJSIgdmFsaWduPSJ0 z1PxCn04Q54uFUpdHKLp HMZcJIBpXCGrySlcsv1x iI1gFc4+PGNvbCB3 jFP7pH9bTQIvJiY6FYjd H017MuHcxHToKriyy8wl i5qfxZs7RmKtOPCromNr qOxhVNK8f1IrFr58 U30jBGpqUXLkTVVwKAAa UXXqkLjwjn0jyR8oVn3+ MS4kj7tiwr25gQ15uHO+ YGYaABH9jRqiZEft FAXtvR2bLGuoToI7KHRs UkPuaQ45aHByKNkaFy6m zKlpmVewZP5nCXTyadzh u020IfQkv2yiQRIt bYUdTBzuPTH5B15tq5Q5 LMBrUMSjYYZ9sUL2rZ8n bGlnbjogbGVmdDsgdmVy tPduDVxoHVezK081 IHRvcDsnPlBhdGllbnQg KkPuURi8M5EwDdb5WTXm fEwgZC0qqYKuPQacLp1y uSievVggSV2bJSPj ohjzi922LaMki5dsBXIj tSWnJIkbOPR5H78fr5P8 JKKvYINnILX4zEX7pF1r bGlnbjogbGVmdDsg gtCodJejKKsjHSyxX716 IHRvcDsnPkJpcnRoIERh zVP4QU40PK60dDKwx7J7 eDZ0M8UsYMVxfwfx dcxnbJG5RPAfCFBupM50 Ug0zuHrtLg9fGZZoJIE0 CWTocSWkF9TvuV9hGeNk VSFfVIKnR9EtxOQq ZTkhI077NVcyZnG6NTUy hgEgO0UePRMewSoqDvQ8 t3P2Kg8AS2G1MD71PK83 lTGrb3O5gPA1S0Rb PMRdfwtsdyktaZP8XCZt LHRsmF62Qe4ikSxpMk4r NHAsBQE4GBBvrBRyV6Oc hH0zNcOzMVTfKKWc M3IvkJCdAVdzL962CIah ImV3ZFZobvVnX7EjYBCu oAgxQeP5t7T8Da9XIEf0 SB51BH36qCQmh7V8 tTU8M0SkDJAxdgkzpndy kBO1SFZnVZNogS27Ry2i fEjqMo7eBACmHUH8RNVk sFDcB0LcgG1xTpCd HTQtTCKrP4QshKRlWFgv D617WBekDsY9OIEqklTx V8IbGVGdnBmlDcX4g5X1 Kn1FMLUjKX59DYP2 eSV5LE16UK29T3PqKszn dGFibGU+PHRhYmxlIHdp ZHRoPScxMDAlJyBzdHls NT7uZo1gZGIkPNKx vBgkaEApSbPsy5xnRCUq GNiyCI5xcQcrU1DogSA5 XTBvm1a6My71H80rK2Zf dXA+TOWirNZ6dEJ9 sL2bPzAwRgQ0ZNsrG434 GcNrhWRyHmneq9rqn4ml xVl6PlB4OZXoovZzzPtd FNX3t1FxZu57E32m IHdpZHRoPSIxNSUiIHZh hRkzix0mfN5cIv7+PGNv kVB0eKX0nK1pGqQyXaS7 ZGbgV236HhZvaKLp Tslci9dal5qijKp6LzAb WVKozyFylKdiZMI7j3Di Cz94S1LkeOuzg2SjBvd3 ds01xTXhb2G4xOI1 G1CvXILvgcsqzWJlsJyf ID3fARFhjqwbCLBdxL6s RCMyT4e1FcPfIqO2SOum B0ZqcvB1GVPznSUm OTubQOO8P20gb1N8QLLx FHXmSPY5nBW2uD4fwRjq bjogbGVmdDsgdmVydGlj DWvhCMxkR346AUDt hAzlSIGohN1sKPXmiSZb jLufCX4aGBDamffnVxfK GN9EGUHMYJsEOSDHBNJ8 K6VqHsi9KROajGka BZ9whRAtYLtkDg9ynSlh zJtdHU0gJRHwjasqXXXf gK9eCGZahBXdlGycNJ7k MRObcffyj056KiGk FPT5ODNzlLNkY5RpeY0j KsRtFIWiATDiR8IzpFCr GXdfJ085WZahLbA9ZIUp uqWtA7SuZTVydKpz NaR0y6U4Mx7wCL2hDQ3q FBtzXX86YE03kTUss7Q9 yPN5Q3XvVGWxbwqzbken cBV8SIHeMHBymC11 hFPgMBukYv4uv6V1r738 PZVgVZQboY54Pf0urMmd WAPtnPTMfQ1qmrptz6lj cjogIzAwMDAwMDt0 BZu6ARJmaRrpDrBvWSA6 XiB2WXC2pLEkbR3ryTmu zfkioY4bFlj+NDkgWWVh bmS3K0BaUrq1TSIp wWgjNV4fkYGrKQxvAy2l iRwvqZlpZS2jLSPqctjv GTZgkJ0bBADsqDQfvGdd UT6wGQIxnppbk302 HyPrDGO5XXGhnPKbV9Kb zY5rXtYgSDVxZJUvE0Ps mQEbVJouA018KNydLkO1 OSGvlcBlB4SpRXOn uKxqFcN0h5J2Vo9BPSed KP16TV60bMXku9P8qIS0 R2GiPJBdqaoytrmboJM2 XEApNOBabY44xGMj IGwlBt0un5S0k554BXIl ZAXmwV42Fi4hrTkfHTJe dOSTnE1npomzi5gsqlcu VoZqUIBaFZv1LBx6 DXVbvKctInVgHKZ0KyD2 JWS8rCSnoX3bhDooegpf aJ8hNji+VOPyURJww7Jz m2RaBL97IM98Y5Ph PjwvdGFibGU+PHRhYmxl IHdpZHRoPScxMDAlJyBz tPlxFJ6fHf8mHBTmNDFm uCfjlPUwKoPlc5cd ONIdKQqyND1iuYzhG4Yl fQP4ELVdv1g3Ke04H26x X8BauYX+NTGsuEF6zUW6 vJ6iFlKmEsV7DHnc O801ZkGsuJHiGqnwk5or e9pqdLy8WrXnIZNnaoUa nAibSML7t3YlHg88E72c IHdpZHRoPSIyMCUi FVKonOkikr2ejQ3pCk8+ ZKSxkGX0mSX8uN8lZkNf AeZ1VAqoQ628YgNicLFa WkbpI23rL3CdbLW+ ZJNoSme3DVJaoYpxWQ9j qRVuYNfiMt4vEVA4JkNy DnYoTAnkS6RhLHCwerag gddchFG0FJDoFXIn nA92He1gtBnbMx5jLSVn JPW4CPWcgDKnJ8YflR8v MxNyUMOfSZUwY8JsyJSf QFuzS643QFvkTdO8 CHXcjsLtW5AsWWGgnJxj AyK2n2O1Ls2KwXimzKNb RD9nIoAaWTc4U7TmHlf3 ROUowMjmKA4hgPXz LTmoXk2hjVkiiXfmNP1n FNLxqrync692LgOuw7jw IKCjfTBmAPigAGI9C98s a5N0AYFgGOBwSHL3 mCJ0qT1aqGdamdutkUMw dDsgdmVydGljYWwtYWxp D363BSGkbOibUqBXKxa2 I6ZoTtw5TATwdNfz UX2ggZToXBjcEq6ukQkb yVmyFI6vARBqrsbet419 RnOce7inGJNqoDJkFPka VFY9O39ob0B6OVPm NPRjHQK7wFG8mX5boRgf bjogbGVmdDsgdmVydGlj LAswJZfdM829MEYufUuq Un4WOqu2A1DrLlr3 OBNjiWljCL0zvPZmFJya Gu3bfSfymFioDT4fBVMz zwhbh893MpWuo1siOXGz kWLhNAtiWTW0V70a i8V7CHPiEXCwSBG0hFK3 rE6njLxvawdqgDIaeRoa hzCyiKteJKcxFJcuJ687 IHRvcDsnPlBheWVy OjwvdGQ+EH35fl73U9Zh TyodUth6HTKhGGW9fFF6 vC3lAYGhOSzbh5C8vGQ5 Q0UbdoDrjb6ro6qg YXBz (more content not included)... Normal [facility] Enteric Panel by PCRon 12-25 C. coli+jejuni+upsalie nsis DNA SHANEKA+non-probe Ql (Stl) Not detected Normal [facility] Comment on above: Result Comment: Test ing was performed utilizing reverse pie dough roller (RT), polymerase chain reaction (PCR), and array [...] GI/GII, and Yersinia enterocolitica were tested by [facility] acid test. Performed By: #### 1 [id number], [id number], 70776991, 31670282, 73072508, [id number] ####[facility] [address] [place] [address] E. coli stx1+stx2 genes SHANEKA+non-probe Ql (Stl) Negative Normal [facility] Comment on above: Performed By: #### 1 8802626, [id number], 67822280, 72002308, 36404365, [id number] ####[facility] [address] [place] [address] Enteric Panel by PCR Negative Normal [facility] Enteric Panel Intrl QC Pass Normal [facility] Comment on above: Result Comment: Test ing was performed utilizing reverse pie dough roller (RT), polymerase chain reaction (PCR), and array [...] 1 and 2. Performed By: #### 1 7516962, [id number], 53003484, 30163763, 18638236, [id number] ####[facility] [address] [place] [address] Norovirus genogroup I+II RNA SHANEKA+non-probe Ql (Stl) Not detected [facility] Comment on above: Performed By: #### 1 5826458, [id number], 88045268, 87257966, 34926881, [id number] ####[facility] [address] [place] [address] Rotavirus A RNA SHANEKA+non-probe Ql (Stl) Not detected Normal [facility] Comment on above: Performed By: #### 1 4032936, 0750261911, 17808191, 99108690, 73330371, [id number] ####[facility] [address] [place] [address] S. enterica+bongori DNA SHANEKA+non-probe Ql (Stl) Not detected Normal [facility] Comment on above: Result Comment: This test result should be correlated with clinical presentations and medical history by a healthcare provider to determine its clinical significance. Performed By: #### 1 4941822, [id number], 08867100, 67904727, 97863990, [id number] ####[facility] [address] [place] [address] Shigella species+EIEC invasion plasmid antigen H ipaH gene SHANEKA+non-probe Ql (Stl) Not detected Normal [facility] Comment on above: Performed By: #### 1 5420359, 1072414270, 04917563, 33706506, 08258505, [id number] ####[facility] [address] [place] [address] V. cholerae+parahaemol yticus+vulnificus DNA SHANEKA+non-probe Ql (Stl) Not detected Normal [facility] Comment on above: Performed By: #### 1 2323132, 9563688863, 38492836, 96643193, 83842450, [id number] ####[facility] [address] [place] [address] Y. enterocolitica DNA SHANEKA+non-probe Ql (Stl) Not detected Normal [facility] Comment on above: Performed By: #### 1 8767793, 5999054986, 97038400, 17683223, 20746246, [id number] ####[facility] [address] [place] [address] C. Difficile PCRon 01-30-202 3 C. Difficile PCR Unable to perform test due to consistency of stool. C. Difficile testing will only be performed on diarrheal (unformed) stool unless ileus due to C. difficile is expected. Reference: Clinical Practice Guidelines for Clostridium difficile Infection in Adults, Infection and Hospital Epidemiology March 2010, Vol 31, No 5. Normal [facility] Cdiff Specimen Acceptable Unacceptable Normal [facility] Comment on above: Performed By: #### 1 1503038, [id number], 39099881, 65860178, 85781825, [id number] #### [facility] [address] [place] [address] Order Cancelled YES Normal [facility] Comment on above: Performed By: #### 1 6001269, [id number], 71675450, 23813835, 94409418, [id number] #### [facility] [address] [place] [address] Fecal WBC Lactoferrinon 11-27 Fecal WBC Lactoferrin Negative Normal Negative [facility] Comment on above: Result Comment: The semi-quantitative detection of elevated levels of fecal lactoferrin is a marker for fecal leukocytes and an indication of intestinal inflammation. Performed By: #### 1 9456212, [id number], 87327829, 29433951, 78372376, [id number] #### [facility] [address] [place] [address] Coding Summary.on 11-06-2022 Coding Summary. CD:[id number] Gh0bWw+PGhlYWQ+PE1FV MLcE88dfMRaeP4LC1oYS K2UVOSGUETFXN8TOQ8ic UB7OYyvT4McbcMe ZpjxfTVsXR01PBe8CME8 jDexKNvtuR2hjVRmT3q3 ZnCwLT58fM68HDmwCMPf JmO8QhOqqicoyCZo F0arXnKncEAcPvk+PHRh YmxlIHdpZHRoPScxMDAl UdSyvEwpDE1cOq3uGMEv LWNvbGxhcHNlOiBj v4vjPEZrHSewDQ9pcTmg U9QeqLZ2JKAsr2s9Xi12 dHI+RIPwSMK6dJeeIPpw f642IgGbv9mfLNU1 oEHtIVppWBL3S16gb7O1 COLwAGUzMZL5oPE1nK2p oLdgjjpjH6AkvXBiXoW7 YQC9hOOevJ4zuRmq aipykN8bJkc+F18YSJ0P WFBXLG5FEyf4X0ZrMako dHI+WZ69WRChFN41eZXn kNUse0bjnNs8BxJc VSJiPUU2oTyqWDpyl1Ut DKAjT11hxVBrr5Q9VQUt sCqwrCGdBtMgjKH6wB9j HVqjgedez2cnbfei Wgkcy7bzii83oH96Q29j SWrsCJHvXFN4QOWzBANe dTzrma1odA0dPp1+IDxj j8igx1qtzTp3NlPr XQTpjeSfmAsgZRX6x8Pv Bs27J0JkeJioq1AlQru9 gk59rQCcj5F1wNM1TIqc CTNizN8zFFeyVsI2 ARJfEpAogZ90hZLyOMyr Bi0afQxshJwdGH5aFDUm domsARXdiJ2vQQRhxBFx cRbqCB3nHVClqhfw s158DxVwCIG5GLRpxGTd K6TvaE6cXqMfMIZeQIAf Q1DzoTBgHEcgJ894ZWmf XrF0MIGrrbZtU2Iu AQCvcCvvBcC8n3C5Mt6O i6DyzgfvWKQ4XSjsZVWn LgHnUhWoDqE9Q3PyXva6 LYWdaMswVH3nG5Lg PUJjblykmilbjRD4YVCr MMElhP61lQKkMWtuRn1a u4D3a340BEZkIGNksQ29 Xz7hrRahPGTscSGR tE0rzhixh8kbbemkBcIh EIClMAu7ELf2GOEpcHdt QmIjRHX0ZpI5ROB9lUKj qV5stVsyqipdbH0q Oyc+B83boZ3xNOB7CRS0 yyudSFFbnpWlPO88XA13 Y6XfJnrshWKfqKT+PGRp clMaaEfyWQ1cFeRm k0lgo7IpWMbaP7TyTMQe NChkGcx8NHHjBDT8sGH8 tL3jKTWeECtru9Y2yKC7 N4GqikBuez7ly1hh XOLkMQifY61btQYuf0H3 VBKxgOC3CBFgiHevNbAi iP10Bwi+IFUtnWtlr1Ba Duxex4tzn2ckcUd6 IjMwJSIgdmFsaWduPSJ0 y1FmCa28U31tQDlpILVt BPAdFGQiSPUdfVigoj3h kS3bJn1+PGNvbCB3 kJU0nY1mBHUyDjP2VKih A478HcNmmOXdHfqom9sz b6sbhHz5KfFmLBXwwvGn zCstWWM6s8GcAj49 L11jIWutEVKrAAKeWBBb IKOopVczzk8hpD0eEd6+ HQ7yq1cweh52iD33lCI+ AGGsHPP6yHbrZWfb LDHnjW8lLOueChZ7KXPg GlTupA61wSLyJCqzUg4b uSxnsZrvCF5qUESmjyvp l341PjPim7nzVLBz vFCqOBwiWFB4K54vg7F4 FRJxQJTkNIZ8aWW1yT1o bGlnbjogbGVmdDsgdmVy uLlpGKynWFlnD194 IHRvcDsnPlBhdGllbnQg UwBfAYk7F0MiWop8PAEv iVptKT6hxNYrTXmkUj8y aIjdoFboAT1aNCTm mmvaq999VuNab3uxGHXx tHOmMYsaRQA3C16di6X4 SCWeHBNzOWV6kOT2bI8q bGlnbjogbGVmdDsg hoLfkNmuIZmdOHglM297 IHRvcDsnPkJpcnRoIERh uIL6WV06XJ03jVTka3V5 qYN0M7QxSDPmkdnw hglopFK7UXDlDSTenU60 Tc8gjHilXq8fXBQsCES6 SVYghKLjZ0SsyC3cSqXm IDJdVFLrW6OwsXVh TYyjO401WBedGdE0LCZu esRkM1OfOZSihQfrVfM2 u6G4Of4ZN1I0GO02WM21 pUMhn4X4wTQ8X1Mu SLOrcntwjrheiOB7YWZx TXPwwZ37Xc3gsGcjJu3e AIYxMGT3OFItiBMcY3Pp cS3lUjLwMNBjQAQr B3SiqDAkXEdkC864QLdo ZvD1EIDrkcNhH8ViMGNo jKizChX8y5M9Eg5FGCo1 BZ46RX94eWTnq3F2 kMP4T4PaIRJrdfylycdn hKW7WTInLXXeaR49Fm2q pSkhPb5qLQCpQHC3ZVPd oKOtT0IcbG8sBnJi SVKmOCTwB9XcmXOvMNvg O698TUihCqC2GWBezzZy O1KbHZLfyPvbSpL8c1K6 Hc2NEFQcDC94GER9 qVL9DC37VK60G1JuUhdr dGFibGU+PHRhYmxlIHdp ZHRoPScxMDAlJyBzdHls HZ7cRl2lFEDlWFLs nSmbpMKfYgDvb5roOLFc DYelBF1ahUdjK9OhwWF8 XNUur4a4Xz93F18rX5Ys dXA+DMVujGC3vCA5 zV4aEpIuVhZ5VRykO038 BfTvgVSbNnngs7gst7fo nUm6XgP9IWWuomSoiLcj AMU8d9LnKo65O43x IHdpZHRoPSIxNSUiIHZh aHqqpx7lgQ3lWb2+PGNv mQO3xHW9sG1mOvGwIwP6 CFifW639KlJvwCAy Lkbej4olb3gaeJe2BjXc XGMvnbCapQadAUR9k0Vf Ae05S9ZmzRrbg5KrLzx5 xm70zJVzu5N2rOQ7 Q5OcOKKqxduzqULnkNch HB2iACLsolqeFGBwaS6l NNQnR4a9EyTkMhA9THez H3DjmiO4KUMelDLu HYvdTHW3M69jw2E0AFVx EWAiRZK9gAE1mS2zbLnm bjogbGVmdDsgdmVydGlj USkiSTklM014XOEm kBjcLRUjmJ2jPMNaiWEd hAdmXI0hBQHhanwpRxwZ WD0WIQMEXZtVUPTNYKP1 Z0TbJiu5SOGkdCux FP0irLKsYLmmZv9ujJua aDxsKO5dJEHlhjetZRJk iY4qGLEksVUmeUkjKL2i VNZqysfuq153ReSb VDS3HTBhzZJiA8AsqD6h BuTdCHSwPKEnN4IhfIXp FDauB165BJqgJaI2GASe hxVaF8TyBMMtcOvp VwN3e2F9Np8cEE8oSP0c NJdxDK50YU49hTGal5F1 hNE5S5ArNICdmehfbosa oZB5AMXwOPZmyH42 cQXoYDxwEc1ni2M8k939 TJTrATLuiL90Uv5zfKbo WUKruWISiI8pcqgvn2ec cjogIzAwMDAwMDt0 KFc5XVMasQhfOvSyCXR8 BrW2IUH4fIXlsT5liPya tvzhdK6zNot+NDkgWWVh ycU2A5FhWcu6WJJz mGbiDY6gdICqRRjaFg3s wFcapXegPL1nGNTtzvwu QLZfqU4dRKTdfQTpkFkr TM8tOWHjgedxg805 KwHdEKP8NTKkiBPcH1Dd sG3pItRhBZBwYDFxP9Fm nHFyRFxkN898PKvkGjO4 SQRrwhInL6UqJRXy xVlyCzS9j5M0Nd0WERoq UI63NC28rQSkn7B1aDV1 E4OqBYOkgtfklqfmrMW9 EUNtFPCcsK69yAPf OPzuOw4cp2U5g262WCMn AQYocQ62Kd2osWefXZRv iTWVqN4ccguce2mumuvf HgQwHTVmRUe7AUe5 NTAfvXpgAoQmJXU3BhJ7 JYG1eDKvjQ1mrFrdntgq yC6gAyu+U4Q0tHL0jWNt dDwvdGQ+IB10vl76 O5TiEwlrFir0MIQbYHA9 wXG9yU1kUKQiNBrsh2I9 jVG6M1ZwmkQuiz5za5rz CYAqKMvzZ46onPCq m8T8SUUjgLZ9APGrxYbz IiCttM21Dxp+PGNvbGdy m6MkFfgim4gli0urkAw6 IjMwJSIgdmFsaWdu MOC8t7NwNx80Y40uSDgh ZHRoPSIzMCUiIHZhbGln ax8rbB3mVi9+PGNvbCB3 fKQ7dY9rCeLjOsA6 NRcmD232JwZlqBTcRdpk r8kzo2akpOm0VdTaGSLx buWrxQwfFZL1n3GwWy24 C3XrdPhag4LuVuy2 ue78kBHnv4Q5iGZ3U1Hn ANSfmnxfxRGmkVrlNH6k DFRgseixSGOvxY8fDMCr P9z1CuByJqE6RMdg Q3NjrjF9QCGqwFNoLIZj kSDSqW1tatnaq8plehah WrJrUBJeXNr0ZXr4KBLc gSdtRoBnXFO3FsI3 SOW1hDZwyZ8zlShbnlyy lD8cYoj+PTe3m4iupCGc UH3maUB3OX76QL12lGKl o1P7iNY3Z1RqTMYw cyabndrkyHP7DWJbOVCo gC02Bx3wcIyhYd5jOXMq BXK7KRCbgCKmX5LnjP8z IyRpKORwIDZjS4Ah eCXuIYydF209NYveDpG1 HHXcbmVoH7LnHOPujHiv NmT2q4G9Uw0ENZ68LQ55 VQ60yJRyk9C7pOZ7 N7RqPADdypsjktkzsBI7 UUMpPJNjrJ13Ci3qnYtl Fq8hQPAtJXB0CIMobHBj X6DvqT0mOhNiENEt DKLeD4TdtZMsMJxvL993 WShePmD4DBVwpaPuY2Gh FJNeiSqvPqO3h6H1Gp0G Rq89MQ84WL38ePRd r7Y9lVR3E9UnXORcnlhj rrcbdFC2TXEyXXUneP43 Gl8cmHrkTm1uMXHxMLH6 XPGffWIvE3NrpA1q CpSzDRJiXFJoB4CpeNRy OQneY562FStsHwD2VJYn mxWdP9NhKRBshVjkKfX6 g2U7Ez7QRAuqhsd3 R2DyCsavsOE+QN95BVXl BN67yIEenZBir0vjcWz6 WlJwFERdCVU1lWsvALlm z4HhOMPfT50awFBe c2U6 (more content not included)... Normal [facility] Consent for Procedure/Surger yon 11-05-2022 Consent for Procedure/Surgery [id number] [facility] Ambulatory Visit Summaryon 1 01-02-2022 Ambulatory Visit [...] Follow-Up Appointments Saturday 12:40 PM EST Where: [facility] Surgical Services You Need to Schedule [...] future visit, Lab Collect, Irregular bowel habits [facility] Auto Diffon 11-01-2022 Basophils/100 WBC (Bld) 0.8 % Normal 0.0-2.0 [facility] Comment on above: Order Comment: Order Added by Discern Expert. Performed By: #### 2 730233, 7180737, 6471927, 10074585 ####[facility] [address] [place] [address] Basophils/Leukocyte s Auto (Bld) [Pure # fraction] 0.0 E9/L Normal 0.0-0.2 [facility] Comment on above: Order Comment: Order Added by Discern Expert. Performed By: #### 2 911417, 7607583, 9836165, [id number] ####[address] [address] Eosinophils/100 WBC (Bld) 0.4 % Normal 0.0-8.0 [facility] Comment on above: Order Comment: Order Added by Discern Expert. Performed By: #### 2 534094, 1118496, 2867860, 94167124 ####[facility] [address] [place] [address] Eosinophils/Leukocy dianne Auto (Bld) [Pure # fraction] 0.0 E9/L Normal 0.0-0.5 [facility] Comment on above: Order Comment: Order Added by Discern Expert. Performed By: #### 2 869168, 2119153, 0589740, 95598400 ####[facility] [address] [place] [address] Lymphocytes/100 WBC (Bld) 35.8 % Normal 14.0-50.0 [facility] Comment on above: Order Comment: Order Added by Discern Expert. Performed By: #### 2 599446, 5633798, 1560165, 21572670 ####[address] [address] Lymphocytes/Leukocy dianne Auto (Bld) [Pure # fraction] 1.5 E9/L Normal 1.0-4.0 [facility] Comment on above: Order Comment: Order Added by Discern Expert. Performed By: #### 2 353966, 5949879, 1794130, 04941150 ####[address] [address] Monocytes/100 WBC (Bld) 15.7 % High 4.0-14.0 [facility] Comment on above: Order Comment: Order Added by Discern Expert. Performed By: #### 2 103551, 7663424, 5418982, 52638104 ####[address] [address] Monocytes/Leukocyte s Auto (Bld) [Pure # fraction] 0.6 E9/L Normal 0.2-1.0 [facility] Comment on above: Order Comment: Order Added by Michael Expert. Performed By: #### 2 027995, 5029529, 9306461, 71195489 ####[address] [address] Neutrophils/100 WBC (Bld) 47.3 % Normal 36.0-75.0 [facility] Comment on above: Order Comment: Order Added by Discern Expert. Performed By: #### 2 314756, 6146695, 3570796, 65090397 ####[address] [address] Neutrophils/Leukocy dianne Auto (Bld) [Pure # fraction] 1.9 E9/L Low 2.0-7.5 [facility] Comment on above: Order Comment: Order Added by Michael Expert. Performed By: #### 2 348898, 8021662, 9724032, [id number] ####[address] [place] [address] CBC w/ Auto Diffon Erythrocyte distribution width (RBC) [Ratio] 14.3 % High 10.9-14.2 [facility] Comment on above: Performed By: #### 2 207507, 4230793, 2405631, 43569353 ####[address] [address] Hematocrit (Bld) [Volume fraction] 41.4 % Normal 37.7-49.0 [facility] Comment on above: Performed By: #### 2 983099, 8250460, 3566259, 33948220 ####[address] [address] Hemoglobin (Bld) [Mass/Vol] 14.4 g/dL Normal 13.5-17.5 [facility] Comment on above: Performed By: #### 2 805269, 2891850, 9309195, 80124100 ####[address] [address] MCH (RBC) [Entitic mass] 31.2 pg Normal 27.0-34.0 [facility] Comment on above: Performed By: #### 2 288997, 5844830, 2197842, 96356572 ####[address] [address] MCHC (RBC) [Mass/Vol] 34.8 g/dL Normal 31.4-36.0 [facility] Comment on above: Performed By: #### 2 362970, 9872377, 8554460, 38649268 ####[address] [address] MCV (RBC) [Entitic vol] 89.9 fL Normal 80.0-100.0 [facility] Comment on above: Performed By: #### 2 375458, 5503597, 3606652, 22558039 ####[address] [address] Platelet mean volume (Bld) [Entitic vol] 7.0 fL Normal 6.4-10.8 [facility] Comment on above: Performed By: #### 2 558853, 7631949, 8502107, 47561499 ####[facility] [address] [place] [address] Platelets (Bld) [#/Vol] 221.0 E9/L Normal 150.0-500.0 [facility] Comment on above: Performed By: #### 2 994383, 0544083, 5612793, 68256417 ####[facility] [address] [place] [address] RBC (Bld) [#/Vol] 4.6 E12/L Normal 4.3-5.9 [facility] Comment on above: Performed By: #### 2 628399, 0506651, 9713606, 22598361 ####[address] [address] WBC corrected for nucl RBC Auto (Bld) [#/Vol] 4.1 E9/L Normal 4.0-11.0 [facility] Comment on above: Result Comment: Slid e reviewed by WILMER. Performed By: #### 2 913679, 1193648, 5844396, 07518962 ####[facility] [address] [place] [address] CMPon 11-01-2022 Albumin [Mass/Vol] 4.3 g/dL Normal 3.3-5.0 [facility] Comment on above: Performed By: #### 2 910507, 5043149, 2856515, [id number] ####[facility] [address] [place] [address] Albumin/Globulin (S) [Mass conc ratio] 1.4 Normal 1.1-2.2 [facility] Comment on above: Performed By: #### 2 107427, 0954517, 4961749, [id number] ####[address] [place] [address] ALP [Catalytic activity/Vol] 62 Int._Unit/L Normal 21-98 [facility] Comment on above: Performed By: #### 2 101567, 8394941, 1456262, [id number] ####[facility] [address] [place] [address] ALT No additional P-5'-P [Catalytic activity/Vol] 16 Int._Unit/L Normal 6-46 [facility] Comment on above: Performed By: #### 2 914438, 7336174, 5550082, [id number] ####[facility] [address] [place] [address] Anion gap [Moles/Vol] 10 mmol/L Normal 6-16 [facility] Comment on above: Performed By: #### 2 272452, 7592786, 7356922, [id number] ####[address] [address] AST [Catalytic activity/Vol] 14 Int._Unit/L Normal 5-43 [facility] Comment on above: Performed By: #### 2 272171, 0822568, 6717264, [id number] ####[facility] [address] [place] [address] Bilirubin [Mass/Vol] 0.5 mg/dL Normal 0.0-1.1 [facility] Comment on above: Performed By: #### 2 314029, 7638442, 8322960, 50911195 ####[facility] [address] [place] [address] Calcium [Mass/Vol] 9.4 mg/dL Normal 8.9-11.1 [facility] Comment on above: Performed By: #### 2 986741, 7729008, 8596793, 08320129 ####[facility] [address] [place] [address] Chloride [Moles/Vol] 108 mmol/L Normal 101-111 [facility] Comment on above: Performed By: #### 2 796068, 7689013, 0233869, 56768889 ####[facility] [address] [place] [address] CO2 [Moles/Vol] 22 mmol/L Normal 21-31 [facility] Comment on above: Performed By: #### 2 811200, 3113320, 8834490, 44511955 ####[facility] [address] [place] [address] Creatinine [Mass/Vol] 0.7 mg/dL Normal 0.5-1.3 [facility] Comment on above: Performed By: #### 2 543224, 0342645, 9056939, 68861212 ####[facility] [address] [place] [address] Globulin (S) [Mass/Vol] 3.0 g/dL Normal 1.4-4.0 [facility] Comment on above: Performed By: #### 2 494736, 0420733, 0455717, 08502039 ####[facility] [address] [place] [address] Glucose [Mass/Vol] 219 mg/dL High 55-199 [facility] Comment on above: Result Comment: If t his glucose result represents a fasting glucose, interpretation should refer to the following reference range: 55-99 mg/dL Performed By: #### 2 642643, 4471321, 5140483, 67650450 ####[facility] [address] [place] [address] Potassium [Moles/Vol] 4.3 mmol/L Normal 3.5-5.3 [facility] Comment on above: Performed By: #### 2 628594, 1216314, 0175872, 94277565 ####[facility] [address] [place] [address] Protein [Mass/Vol] 7.3 g/dL Normal 6.0-7.8 [facility] Comment on above: Performed By: #### 2 670060, 3343537, 6396921, 34206973 ####[facility] [address] [place] [address] Sodium [Moles/Vol] 136 mmol/L Normal 135-145 [facility] Comment on above: Performed By: #### 2 750425, 0376354, 2113692, 23306927 ####[facility] [address] [place] [address] Urea nitrogen [Mass/Vol] 26 mg/dL High 5-21 [facility] Comment on above: Performed By: #### 2 792214, 3253805, 6703671, 92993217 ####[facility] [address] [place] [address] Urea nitrogen/Creatinine [Mass ratio] 37 No Units High 10-20 [facility] Comment on above: Performed By: #### 2 936499, 8574224, 7393881, 74142127 ####[facility] [address] [place] [address] CULTURE URINEon 11-01-2022 CULTURE URINE Culture Observations: NO GROWTH. Normal [facility] Comment on above: Performed By: #### U RCX #### [facility] [address] [place] [address] Dr. Pam Granger Consent for Treatmenton Consent for Treatment [id number] #[id number]:[id number] Normal [facility] GLYCOHEMOGLOBIN A1Con 2021 ADA RECOMMENDATION SEE BELOW Normal [facility] Comment on above: Result Comment: ADA RECOMMENDED LIMIT 4.0 - 6.0 ADA THERAPEUTIC TARGET < 7.0 ACTION SUGGESTED > 7.0 Performed By: #### A 1C #### [facility] [address] [place] [address] Dr. Pam Granger Glucose [Mass/Vol] 189 mg/dL Normal [facility] Comment on above: Performed By: #### A 1C #### [facility] [address] [address] [address] Pam Granger HbA1c (Bld) [Mass fraction] 8.2 % Critically high 4.5-6.2 [facility] Comment on above: Performed By: #### A 1C #### [facility] [id number] Pam Granger Gastroenterology Office/Clin ic Noteon [...] day(s), # 90 cap(s), Refills(s) 0, Pharmacy: [facility], 171, cm, 11/01/22 12:17:00 EST, Height/Length Dosing, 78.9, kg, 12 (more content not included)... Normal [facility] Comment on above: Result Comment: Elec tronically Signed By: Sue Qureshi CNP\.br\Date and Time Signed: 11/01/22 12:51 EST Patient [...] including vitamins, herbs, eye drops, creams, and vowo-ifs-ipsodgu medicines. ? Any problems you or family [...] air t (more content not included)... Normal [facility] UA RANDOM W/MICROSCOPICon BACTERIA NONE SEEN Normal NONE SEEN [facility] Comment on above: Performed By: #### A 1C #### [facility] [address] [place] [address] Dr. Pam Granger Bilirubin Ql (U) Negative Normal NEGATIVE [facility] Comment on above: Performed By: #### A 1C #### [facility] [address] [place] [address] Dr. Pam Granger CAST NONE SEEN Normal NONE SEEN [facility] Comment on above: Performed By: #### A 1C #### [facility] [address] [place] [address] Dr. Pam Granger Clarity (U) CLEAR Normal CLEAR [facility] Comment on above: Performed By: #### A 1C #### [facility] [address] [place] [address] Dr. Pam Granger Color (U) LT. YELLOW Normal YELLOW [facility] Comment on above: Performed By: #### A 1C #### [facility] [address] [place] [address] Dr. Pam Granger Crystals LM Nom (Urine sed) NONE SEEN Normal NONE SEEN [facility] Comment on above: Performed By: #### A 1C #### [facility] [address] [place] [address] Dr. Pam Granger Epithelial cells LM Ql (Urine sed) FEW Abnormal NONE SEEN /RARE [facility] Comment on above: Performed By: #### A 1C #### [facility] [address] [place] [address] Dr. Pam Granger Glucose Ql (U) >1000 Abnormal NEGATIVE [facility] Comment on above: Performed By: #### A 1C #### [facility] [address] [place] [address] Dr. Pam Granger Hemoglobin Ql (U) Negative Normal NEGATIVE [facility] Comment on above: Performed By: #### A 1C #### [facility] [address] [place] [address] Dr. Pam Granger Ketones Ql (U) TRACE Abnormal NEGATIVE [facility] Comment on above: Performed By: #### A 1C #### [facility] [address] [place] [address] Dr. Pam Granger LEUKOCYTES Negative Normal NEGATIVE [facility] Comment on above: Performed By: #### A 1C #### [facility] [address] [place] [address] Dr. Pam Granger MUCOUS NONE SEEN Normal NONE SEEN [facility] Comment on above: Performed By: #### A 1C #### [facility] [address] [place] [address] Dr. Pam Granger Nitrite Ql (U) Negative Normal NEGATIVE [facility] Comment on above: Performed By: #### A 1C #### [facility] [address] [place] [address] Dr. Pam Granger pH (U) 6.0 [pH] Normal 5-9 [facility] Comment on above: Performed By: #### A 1C #### [facility] [address] [place] [address] Dr. Pam Granger RBC 0-2 Normal 0-2 [facility] Comment on above: Performed By: #### A 1C #### [facility] [address] [place] [address] Dr. Pam Granger SPEC GRAVITY 1.025 Normal 1.005-<=1.025 [facility] Comment on above: Performed By: #### A 1C #### [facility] [address] [place] [address] Dr. Pam Granger UA PROTEIN Negative Normal NEGATIVE/ TRACE [facility] Comment on above: Performed By: #### A 1C #### [facility] [address] [place] [address] Dr. Pam Granger Urobilinogen Qn (U) 0.2 {Steve'U}/dL Normal 0.2 - 1. 0 [facility] Comment on above: Performed By: #### A 1C #### [facility] [address] [place] [address] Dr. Pam Granger WBC NONE SEEN Normal NONE SEEN [facility] Comment on above: Performed By: #### A 1C #### [facility] [address] [place] [address] Dr. Pam Granger eGFRon 11-01-2022 GFR/1.73 sq M.predicted among blacks MDRD (S/P/Bld) [Vol rate/Area] mL/min/{1.73_m2} Normal >=59 [facility] Comment on above: Order Comment: Order added by Discern Expert. Result Comment: eGFR is race adjusted. AA=. Performed By: #### 2 [id number] ####[facility] [place] [address] GFR/1.73 sq M.predicted among non-blacks MDRD (S/P/Bld) [Vol rate/Area] mL/min/{1.73_m2} Normal >=59 [facility] Comment on above: Order Comment: Order added by Discern Expert. Result Comment: [employer] cydney kidney disease could be indicated at eGFR's of less than 60 mL/min/1.73m2. Kidney failure is indicated at less than 15 mL/min/1.73m2. Performed By: #### 2 [id number], [id number] ####[facility] [address] [address] Physician Referralon Physician Referral [id number] #1.00CD:127 Normal [facility] Coding Summary.on 09-26-2022 Coding Summary. CD:[id number] Gh0bWw+PGhlYWQ+PE1FV NOtW20gvVJwkU1DI1hBA H7NLMYDIKDXVJ0PVT4oz UJ6VMmbG2JikdFn ZfivrHIqJW67GBp4RGR5 mNoaMHulvO0lePRqJ2d6 LvSyRR96cJ90GCsxQCIc RtA7KtUvygxoqGXj R3ddPlXboPFhCli+PHRh YmxlIHdpZHRoPScxMDAl QqPrrDfnYC5fKs2xGEFq LWNvbGxhcHNlOiBj i7bzEOHkGHepCY3mjEig T1BzyQV0KZEkt9p6Av32 dHI+WUFlZDA8nRtxFKxb j072UdObn7mcISZ7 uRNsPOyhQOA1B63ww6K5 EVNhKNWmWGA7qJR4fA6m nQeznwozM5FzgKQiBtE3 QYY7dTWvzB4uaItj cfqayW4vKzv+E88JZO1G QAXSMK1ESvr1Y1QhSzyo dHI+SA92CMIvGK37fCDw bMRae7iviSw0YiWo UJAzQQM0pHguLOoep7Kd RGAiD53kwNYfe1D1HMBl mKxkcNJuQnDfkGD8mB8a CVzevovqa6vblcnd Hwkah2qjjm51tJ07C49s NLefGHSnFBD0WXMzQSSg tSsjml1dbI4dZo4+IDxj v3dwe3yfrSq9VyPr QHDvwrPwrWzpJWX2e1Gv Xg65H3RzoUunt6WvNay1 nz84bGYpt4V3sOA1EFrt SLXhcR7uAGdkMqJ8 VGDiMbZdmV59xCMmSMam Nj5ugRwkgIzyCV3mOJVa fbvkSHWtoG0fMTDiuGFl xSbkYU6nLZBunihs h200ViLvGML1KSRiaPNx Q9LnkP2hOuEzMWEbGICe W5WoyEUzFKogQ871XCqh HiF8WYKidpWhD7Ql LKCcoEmfTgI9u9Q3Ef0S x8BmbmkrCKN8YMjsWOIy GbItSdUjSdK9P4MxZfv6 YXEuhWkzSS6yV4Lo IZWrdikumvmdvML0NMRh GQTvkO03kQSpJShoLm4u q6B1j187ISMdZSNbkA65 Ex0pfFnrNJGhyWAB rZ0zjilmi6jcscfcRrSz ENPnKEw4EIi1MMFwzFbd SxDsOSN8QhW3NIR3xOEf yP4jkFruqovjfW7v Oyc+K04zyF4yBRH0MJN3 xjliSIKsjvNmMJ93SU76 Z3ZjSpiwnZXkjVC+PGRp nhCldYcuNT2wTaGt l6sjp8FbXLxtS1OvWKRv ITinTuf8DGLnVKJ0wHG0 pR5oLZYcDCvsl2J4lYR2 L4DpzuXsgz7ck6ja RPWaIXrxH98dsBMjv5L6 PDHapJM8LHQoeAfkTkKg yT24Nmh+UXJcoVhqg9Zj Ejkpe0lvb4afkMz8 IjMwJSIgdmFsaWduPSJ0 j4JiQj36E73tIJroLBWg EEYxNLRtTJYzaKuznq5w zQ9nMb2+PGNvbCB3 lCU5gK2yQUCqPbZ7HFwj V119KtLayGAkVwrsy4xo w2qnkXb3DnLvCXMzrsRb rHyqHNT3a8LpJs67 D72eKSmlUURcXPMwSIVt YLLesPirsk8qoQ3lLl3+ MQ2fe2cmpt61fX12hAM+ VZZnPGA1qLqpKZfl JXVnjL3wXDrlVuD7XOSj EmIzoC85yGLcJLimKu2j uCxzvWejVH0lRSRwaheh i200WnFme9vnUQAa iEKxDCtnVWW8M92ex5R2 KOEbKZJrIXO0fGZ4sU3p bGlnbjogbGVmdDsgdmVy mIpmRYxpHAszX521 IHRvcDsnPlBhdGllbnQg QrJgRMw3V5ZfTxg8QMAv qSgzVZ0ccUNdQSjqVr3p qVmabHfhVD4eOPQj thuvc734AcJvk8avUGKb dSAbNRbzQQU6W53mj6O9 AFAlOGNcMRT5xQL6jK0g bGlnbjogbGVmdDsg ovBvfCasCSjuFYhnG379 IHRvcDsnPkJpcnRoIERh eWR0CZ86IK79bGEzn7I7 iBI7T6KtGGDhlnxp lpxrhED8XJDiMKSmgQ50 Ax3clVhqSm6iMPMgCBN6 NGOyuCPgP5LpeF0uUpAx GBMbUTMsD0OqzNUg PWsmP197DTxwFmM6BHKn vpFhL0SjDAWyqNrmXkR4 o4U4Vw7MZ2L4ZA77ST28 aUDmr6K1lMX3Z0Dr BPGccjzyybioiBW7XHPr SPLiiH71Sc2opOcgUz4n DZSvENB6MIIomVOqH4Xx hZ1yXcFgZQImMAMl U4EmfVEqEFkqJ426KQge TeK1OFEalyWuF7GmPGGe sFiaSlM8h1W9Vz0WZQw8 EQ63AP64wBJyo7J0 bRL9I0GkAEKwhnrpexac uBA9FXFqOGUciS00Oe9p sLomOl3hTGLsKOG8ACXt sOXzK1OtlX6pWjAf NQJtVVZqR1NfpMHzVOij U418MRmeHdY5KHWtljEs Y7RuPWKazPcsIvZ8x0M7 Ri8VHPEjDZ87QGV5 bDI9DH17IC22M0MpVeax dGFibGU+PHRhYmxlIHdp ZHRoPScxMDAlJyBzdHls WG9xIr6xZPYrWYRy yYdsmEDxSjHav2ifJIOx UMazZA3kdRxoP4AmdLO1 OMOlq7q9Lc90U98zH2Lj dXA+BBNawXO8wXB4 zV5aQgUiIiL5XAekX067 BjAonAKmJcrgs6oxb9tn aZp1RhD1AJIridLwqXgf DBU5o4HpDl71I38y IHdpZHRoPSIxNSUiIHZh fHmfbi4ndZ6dZv7+PGNv kAO0nIS4zH7aYaUiQnL1 SVycK952IoDytIXa Croas8xfp3nxwWt6PrGy UFXlmbWisPezSJF6d6Cl Dj27Z5CaoDfcf5PgGyu2 me19lCVfg3I4yIE0 P7HnWTWoaehjiZJfaKfk AZ5pVVSdbaygZDHupQ1x DJBtI5q0XlWsQcP0MLax N0VfurW8FCLehJOp GTtuWIX2O91fj5Y9JHNa QUYfRWC0uCJ5uQ5wsMgt bjogbGVmdDsgdmVydGlj EQhyZIsaX713OYQf jMwwWWJzdC8lURQxcKAp cMamWH8fYXSscecvWafK ZJ1PFKMHRDaSPXNWSFR5 V6OzRqt1ZCIqrUit WH0srFKoFIsgRt6fjGrh yFmhAO6eILLcnlvwDIBf aA1dQPHraPWunZrsMJ1v PTSdexkvv462UsEh ILI9RSNljLQhX0LyjK1d LhRuWTOsYOClK6CkbASt KYauE792HXshBfE2ZTLq mzXkP8NbFNOkgCjo ZwT8w4M1Bb8yBQ3pQH5x JCxrUJ58JK13zGMic0V6 bMC6O2AuCIFyndzqhnjq qTZ4CLAnTRSwjN75 cWEeFOzkNu9zf1X4o001 SLJwXKLakX54Uu0cxXnm KWIfsBAFmH8appjwp2al cjogIzAwMDAwMDt0 TBt6EUXfaVxaBfQhHKU6 UoJ6DHP7xGXolT7wxSbc qpgtfF2pRbs+NDkgWWVh faA9H6NqQjf7FLUw jIhxBG3eoNDfKVbrYi5f nYztmQljNV5mRMGbozjk IGNieF2rZBQzrNErhAzl SP3iNUWhigdvm118 AfJeUGF5QNVflURgL1Mm hH7rAiPmHSBjGYKkX3Vr dJJtUZljA990GGegDrT5 ZNJdlrSzI1QrCEJe rMaqBhU8y9U5Xl4DUOmn WM86EY38aQDxu1B8aNL9 V3LvSNWjtfgoosjbkDY1 IGPwCFYfoL79mSIs OCvgEx7xo9R9i170MAIk HQIkwN54Cn1amWzqILMw rYRYtC2ritvot6tsozco TzMnFSMbGHi1UCh8 HFTlaXbpTiTkKHW4HjT2 DPV1eJRajQ3wdSmrjykj mP2uCqz+J6S7kXC9zDKj dDwvdGQ+AT45yv92 N6QgKsaqKeh2ERXgLAZ8 mGI0yP1nDKNaQMpde9K7 dWN1Z1RxjgXxcl9aa0bt ANIjJZtpS21liAVr p9T0PYKiuEF3KYEzpOfy DtDlaH49Wtl+PGNvbGdy g8RvJkjol8edi1obfFh4 IjMwJSIgdmFsaWdu UHX7m2RvVr57D30sPLbf ZHRoPSIzMCUiIHZhbGln cc4moS1kAo9+PGNvbCB3 wSC7nV6xAiWaDwY7 RMmvV162FzJdzIQgJzpa o5xxr7hfgCg0IkTaBHHf nsRicVmmLLT4u6JeUw06 D7EgkDhbc8NxMfv4 pc11rOKkx1P7fMV3V7Pt MJYqditnsEIxpUhdVZ4v WBLrlkpiFCHovU1pIVRk G0z7MhIzFoC9EAal T8YazjX5TBMafXZlPMDg gQHUgW3enuxxq4akscpi BsYnNTDyXJq1MOh2NNTk bNnkKaNsJWT7QhV5 YQS7kWEocG2eoEjrcydy yP7bEmq+VVb4e9lxpZSj PY8ujEO5SI94HH33bFPd g0I0tBX5D6MwKCWh pywmlxdydAG8CRCgHVNu iZ46Ni0rpAnkGa6jNRGt QBA2ZSZnmUGiX1RndF6k CgVqIHRbDRTbZ2La bGSmRVdmL674LWcgHyS8 TYYwzyUwP2FgMACmtGuf FkA6t7O5Up9NJR28CF98 GD92cYCjg9W3rLS8 E5DhRVUemsqqkrqdmUQ6 LFMeJEQltM17Cv2taGyc Ay7qAMMqIXH4NLGafLUk V6FugP5kGsVmNNPe XAZwU2RkiQTkFCfhN913 KXabUbZ4LGDxbcFvM2Ht KBZakCvfKnZ6o9R9Lz4P Bf66YF98XN24aJXx l0W1uYJ0B2LhHODuowja jewzzSR4UUOhLHNxbL59 Yv4azEegEv0bWEArFXD1 GRPjmUHtN2YpvT0x LiQoHANaIJNoH5MozGLc XRdqF679FSxiBvC9VZYc mlEeM6IkGMJwkBlpFyB1 j9I4Vq2TUVedzdu5 M3HcMbvrjLI+VK45GCRt VY96mAMzcJZgr0szfBd7 PdXdBVHsGDQ9oCqiYWae x4NjZIGdX96lxNLn c2U6 (more content not included)... Normal [facility] CT Maxillofacial w/o Contras ton 09-20-2022 CT Maxillofacial w/o Contrast Exam Date/Time: [...] Chronic pansinusitis. COMPARISON: Sinus CT from 8 6019 TECHNIQUE: Multiple images axial images were obtained [...] Mcmullen MD, V. Transcribed by: GARCIA Technologist: RODO, [facility] Consent for Treatmenton 08-26 Consent for Treatment [id number] #1.00CD:127 [facility] Physician Orderon 09-14-2022 Physician Order [id number] #1.00CD:127 [facility] COVID-19, Rapidon 06-25-2022 SARS-CoV-2 (COVID-19) RNA SHANEKA+probe Ql (Unsp spec) Not detected Not Detected [facility] Comment on above: Rapid NAAT: [...] management decisions. Fact sheet for Healthcare Providers: https://www.fda.gov/media/386117/download Fact sheet for Patients: https://www.fda.gov/media/406990/download Methodology: Isothermal Nucleic Acid Amplification Specimen Description .NASOPHARYNGEAL SWAB [employer] [facility] XR CHEST PORTABLEon 06-25-20 No acute abnormality. [facility]AMINATION: ONE XRAY VIEW OF [...] within normal limits. No acute bony findings. [facility] CONSOLIDATED Felecia Pelletier, - 06/25/2022 EXAMINATION: ONE XRAY VIEW OF [...] acute bony findings. IMPRESSION: No acute abnormality. [employer] Phone: Radiology Study observation (narrative) [employer] Phone: XR CHEST PORTABLEOrdered By: Felecia Pelletier on 06-25-2022 [facility] [employer] Phone: GLYCOHEMOGLOBIN A1Con 2021 ADA RECOMMENDATION SEE BELOW Normal [facility] Comment on above: Result Comment: ADA RECOMMENDED LIMIT 4.0 - 6.0 ADA THERAPEUTIC TARGET < 7.0 ACTION SUGGESTED > 7.0 Performed By: #### A 1C #### [facility] [address] [place] [address] Dr. Pam Granger Glucose [Mass/Vol] 192 mg/dL Normal [facility] Comment on above: Performed By: #### A 1C #### [facility] [address] [place], [place] [address] Dr. Pam Granger HbA1c (Bld) [Mass fraction] 8.3 % Critically high 4.5-6.2 [facility] Comment on above: Performed By: #### A 1C #### [facility] [address] [place] [address] [address] Pam Granger Acetaminophen Levelon 2021 Acetaminophen Level <5 Low 10 - 30 ug/mL [facility] Interpretation and review of laboratory results Abnormal [facility] CBC with Auto Differentialon 05-16-2022 Absolute Eos # 0.09 [facility] Absolute Immature Granulocyte 0.03 [facility] Absolute Lymph # 2.11 [facility] Absolute Marin # 0.79 [facility] Basophils (Bld) [#/Vol] 0.06 10*3/uL [facility] Basophils/100 WBC (Bld) 1 % 0 - 2 % [facility] Eosinophils/100 WBC (Bld) 1 % 1 - 4 % [facility] Hematocrit (Bld) [Volume fraction] 40.9 % 40.7 - 50.3 % [facility] Hemoglobin (Bld) [Mass/Vol] 14.2 g/dL 13.0 - 17.0 g/dL [facility] Immature granulocytes/100 WBC (Bld) 1 % High 0 [facility] Interpretation and review of laboratory results Abnormal [facility] Lymphocytes/100 WBC (Bld) 33 % 24 - 43 % [facility] MCH (RBC) [Entitic mass] 31.6 pg 25.2 - 33.5 pg [facility] MCHC (RBC) [Mass/Vol] 34.7 g/dL 28.4 - 34.8 g/dL [facility] MCV (RBC) [Entitic vol] 91.1 fL 82.6 - 102.9 fL [facility] Monocytes/100 WBC (Bld) 12 % 3 - 12 % [facility] NRBC Automated 0.0 0.0 per 100 WBC [facility] Platelet distribution width (Bld) [Ratio] 12.2 % 11.8 - 14.4 % [facility] Platelet mean volume (Bld) [Entitic vol] 9.7 fL 8.1 - 13.5 fL [facility] Platelets (Bld) [#/Vol] 234 10*3/uL [facility] RBC (Bld) [#/Vol] 4.49 10*6/uL 4.21 - 5.7 7 m/uL [facility] Segmented neutrophils/100 WBC (Bld) 52 % 36 - 65 % [facility] Segs Absolute 3.35 [facility] WBC (Bld) [#/Vol] 6.4 10*3/uL [facility] COVID-19, Rapidon 05-16-2022 Interpretation and review of laboratory results Abnormal [facility] SARS-CoV-2 (COVID-19) RNA SHANEKA+probe Ql (Unsp spec) Detected Abnormal Not Detected [facility] Comment on above: Rapid NAAT: [...] this assay. Fact sheet for Healthcare Providers: https://www.fda.gov/media/941865/download Fact sheet for Patients: https://www.fda.gov/media/001629/download Methodology: Isothermal Nucleic Acid Amplification Results reported to the appropriate Health Department Specimen Description .NASOPHARYNGEAL SWAB [facility] Comprehensive Metabolic Pane ajay 05-16-2022 Albumin [Mass/Vol] 4.7 g/dL 3.5 - 5.2 g/dL [facility] Albumin/Globulin [Mass ratio] 2.0 {ratio} [facility] ALP (Bld) [Catalytic activity/Vol] 65 U/L 40 - 129 U/L [facility] ALT [Catalytic activity/Vol] 12 U/L 5 - 41 U/L [facility] Anion gap [Moles/Vol] 14 mmol/L 9 - 17 mmol/L [facility] AST [Catalytic activity/Vol] 11 U/L <40 [facility] Bilirubin [Mass/Vol] 0.22 mg/dL Low 0.3 - 1.2 mg/dL [facility] Calcium [Mass/Vol] 10.1 mg/dL 8.6 - 10. 4 mg/dL [facility] Chloride [Moles/Vol] 101 mmol/L 98 - 107 mmol/L [facility] CO2 [Moles/Vol] 23 mmol/L 20 - 31 mmol/L [facility] Creatinine [Mass/Vol] 0.57 mg/dL Low 0.70 - 1.20 mg/dL [facility] Free PSA/Total PSA [Mass fraction] 7.0 g/dL 6.4 - 8.3 g/dL [facility] GFR >60 >60 mL/min [facility] GFR Non- >60 >60 mL/min [facility] Glucose [Mass/Vol] 203 mg/dL High 70 - 99 mg/dL [facility] Potassium [Moles/Vol] 4.4 mmol/L 3.7 - 5.3 mmol/L [facility] Sodium [Moles/Vol] 138 mmol/L 135 - 144 mmol/L [facility] Urea nitrogen (BldV) [Mass/Vol] 12 mg/dL 6 - 20 mg/dL [facility] Urea nitrogen/Creatinine (Bld) [Mass ratio] 21 High [facility] EKG 12 LeadOrdered By: Zheng Anderson on 05-16-2022 Atrial Rate 92 BPM [facility] [employer] Work Phone: P [place] 67 degrees [facility] [employer] Work Phone: P-R Interval 170 ms [facility] Work Phone: Q-T Interval 354 ms [facility] [employer] Work Phone: QRS Duration 90 ms [facility] [employer] Work Phone: QTc Calculation (Bazett) 437 ms [facility] [employer] Work Phone: R [place] 73 degrees [facility] [employer] Work Phone: T [place] 85 degrees [facility] [employer] Work Phone: Ventricular Rate 92 BPM [facility] [employer] Work Phone: [facility] [employer] Work Phone: EKG 12 Leadon 05-16-2022 Normal sinus rhythm Possible Left atrial enlargement Borderline ECG When compared with ECG of 23-NOV-2021 09:40, Nonspecific T wave abnormality no longer evident in Inferior leads Confirmed by COCO ANDERSON ([id number]) on 05/16/2022 7:06:44 PM [facility] Coco Anderson MD - 05/16/2022 Normal sinus rhythm Possible Left atrial enlargement Borderline ECG When compared with ECG of 23-NOV-2021 09:40, Nonspecific T wave abnormality no longer evident in Inferior leads Confirmed by COCO ANDERSON ([id number]) on 05/16/2022 7:06:44 PM [facility] [employer] Work Phone: Ethanolon 05-16-2022 Ethanol [Mass/Vol] mg/dL <10 mg/dL [facility] [employer] Ethanol percent <0.010 <0.010 % [facility] [employer] [facility] [employer] Laboratory - Chemistry and C hemistry - challengeon 05-16-2022 GFR/1.73 sq M.predicted MDRD (S/P/Bld) [Vol rate/Area] [facility] [employer] Comment on above: Average GFR for 40-4 9 years old: 99 mL/min/1.73sq m Chronic Kidney Disease: <60 mL/min/1.73sq m Kidney failure: <15 mL/min/1.73sq m eGFR calculated using average adult body mass. Additional eGFR calculator available at: http://www.[employer].com/multiple_crcl_2012.htm Stage 1: Some kidney damage normal GFR Stage 2: Mild kidney damage GFR 60-89 Stage 3: Moderate kidney damage GFR 30-59 Stage 4: Severe kidney damage GFR 15-29 Stage 5: Severe kidney damage GFR <15 ESRD - chronic treatment by dialysis or transplant No Panel Informationon 05-16 Interpretation and review of laboratory results Abnormal [facility] [employer] Salicylateon 05-16-2022 Salicylate Lvl <1 Low 3 - 10 mg/dL [facility] [employer] Urine Drug Screenon 05-16-20 Amphetamine Screen, Ur Negative NEGATIVE [facility] Barbiturate Screen, Ur Negative NEGATIVE [facility] [employer] Benzodiazepine Screen, Urine Negative NEGATIVE [facility] [employer] Buprenorphine Urine Negative NEGATIVE [facility] [employer] Cannabinoid Scrn, Ur Negative NEGATIVE [facility] [employer] Cocaine Metabolite, Urine Negative NEGATIVE [facility] [employer] Methadone Screen, Urine Negative NEGATIVE [facility] [employer] Methamphetamine, Urine Negative NEGATIVE [facility] [place] Opiates, Urine Negative NEGATIVE [place] [employer] [facility] [place] Oxycodone Screen, Ur Negative NEGATIVE [facility] [place] Phencyclidine, Urine Negative NEGATIVE [facility] [place] Propoxyphene, Urine Negative NEGATIVE [facility] [place] Tricyclic Antidepressants, Urine Negative NEGATIVE [facility] Comment on above: Drug screen results are to be used for medical purposes only. All positive results are unconfirmed. Testing for employment or legal uses should be sent to a reference laboratory for confirmation. [employer] XR CHEST 1 VIEWon 05-16-2022 No acute airspace disease identified. [facility] EXAMINATION: ONE XRAY VIEW OF THE CHEST 05/16/2022 6:40 pm COMPARISON: None. HISTORY: ORDERING SYSTEM PROVIDED HISTORY: covid TECHNOLOGIST PROVIDED HISTORY: covid FINDINGS: Shallow inflation. The cardiomediastinal silhouette is within normal limits. There is no consolidation, pneumothorax or evidence for edema. No evidence for effusion. No acute osseous abnormality is identified. [facility] Ziyad Murrell MD - [...] identified. IMPRESSION: No acute airspace disease identified. [place] Phone: Radiology Study observation (narrative) [place] Phone: XR CHEST 1 VIEWOrdered By: Jose Alfredo Murrell on 05-16-2022 [place] Phone: Physician Orderon 02-13-2022 Physician Order [id number] 8#1.00CD:127 Normal [facility] IntraOperative Documentson 0 02-01-2022 IntraOperative Documents [id number] 2#1.00CD:127 Normal [facility] Coding Summary.on 01-31-2022 Coding Summary. CD:[id number] Gh0bWw+PGhlYWQ+PE1FV IVbW26kmVFaoJ8JH4wBA S3SLAOZBSKVFX5GKF7ib FD1PXjoL6IzocBl JudrvIMbPN90ASv5MDV5 kOafXCsmfB0psAHqK0l3 NaBeVW75vN09ORugTIPg HaE4BmBmdxiipHFw R6pxLfZkaIKwOyj+PHRh YmxlIHdpZHRoPScxMDAl OkVmfEcjXH7sJo3kDQEg LWNvbGxhcHNlOiBj d2gcTISjJVbwCN2khDnt L7AibAA6MXAcs8j6Gc81 dHI+SCAwEGL4yLhbYVog h031SzWyb2hyUKM7 pZHoJOlrGIA2R35vt5F7 HDUjUHRvASF2vOD8yP4d cMsmqpcyF3DrxFAeLpO2 RXX5bRVjlE0eqAzh duelxW2qQcn+H08BKA9K SOPSZY7STzo8T8DkDmqs dHI+ES68ILDhAR43kOOq bCYny1kajPi5YmXh PAQuXBV6sOmlUXwjm9Pe NKIvB52abISin9V9KBHu wXmrzWCsSmIwpLO1zY8a QNumnuadg9hubeyn Frqmv2bgbm61fT71S88l BBrlEPEmCZA2NFSyHCGh wAjcxe8qiE3mCq7+IDxj s4nzx1rokAu8KeWs ETTovvHjfRthGCH0d3Mw Wb79B8MgaOfwr3QgSln3 fo32bOUje6Q5mIY0CKrd JJCdfO2uVCezFdP2 VHAtNxNjkC62pOOmQExg Rl4czBaecDmxJC0bWYIt hnwoNHPbpC7tKWGlfYJc nDeiJA3rYXJkkwfs f761ObNpSWI4IAWhaAHm S2XhoY1zZaAgPNSxWWPa J7GvnTHxOHyhO488PTvd QbI5RLPmfqWyR5Co QIVvkDubXbA8d2Z4Ro6V q4UijwepXIF3HGwoQPXh VbT0VqJxZwN5G4BhGki9 XHGnaLbzID4dC2Vu KGYbmwwsjcatvWQ5KZQt ZRKjdI19tDOhDXnxUn9i p4U3f253XWBmHATufD09 If2qwOebMMZrvMEU aD8qpiybf0wsmcfyYyMb FNOqDZj9TKr0ABGooOmf DqQeFSD6QxX3YRP6nAYd gG2inNrnwfrgtW0e Oyc+J18duV1eKEP5HGA0 prueHHMwteLuZT11GN99 C3YyGrvusWEdiFP+PGRp rsGsxHhdRM4pKzCn y7lik5XuIUqiP2OvELLh LJlxTeq6CHQtJPW0wHL5 tD5rUMDgFIqsy0B0mID7 X2DieuGmng2hx7cr GJOdFSndC80jeQGqr1W9 CTVjoCX0MFHkmHmwQpEq gY11Dox+NGWlqUiqo2Ha Izbsn7pfl0cwfSi9 IjMwJSIgdmFsaWduPSJ0 m8IrSv93P39jTKgxRQHf JYVyMHMbZVJlnPmiew6h hK8vCi8+PGNvbCB3 qLL5mT9yRTTcZoR7SOrp Z007XvNwoEEcDtouc5re g1bwhXu7YhUjSWZdpwCr vWmcOIK6b1PjDi55 O76fXEebKEXgRZMyIKAv THZclCjpbf7usZ1eJq3+ VP8po3ajke30rM34aKR+ KJJfYHI2hSooRNzc ROBtkH9nJOijLgV4UQRt BhYbgJ91rILiHFczMm0x kNpbqJxuXF2eCJHvscwi c426MnXbc9yoKSTk vWJsTBibMRD1X95na0X6 HJCxCQRlZQR0bBB8mT2z bGlnbjogbGVmdDsgdmVy yWhsUXgjBLumV740 IHRvcDsnPlBhdGllbnQg FvOyIYv7S8TkPqv1YVYk rTkrBA0bgBHbFLneGh7i eGtuiVreBP2eLFTk qvybn148PrCzn6rnWOUe iLBaAKilBGV2B37nr6Q1 UDByXSJmVLY9bAP8sT4u bGlnbjogbGVmdDsg huIpwPjmJKsoHThnB216 IHRvcDsnPkJpcnRoIERh zKE8DC47LK09iMBxw9Z9 jIA6A8ChOGGzwbho ysiwgTC8PYCkOAIpuU63 Ks5vfYzkFd5qTQEePJA3 DUMvmBMbV9CirD9fCyHy WGByRIDkK2BvgXDn VRnxI639FFkkMcF6KDJx mrBxM7GiAEIhwZfkBdS6 b0B2Tf8KB6F0LD16NP24 gJBfm8N4kOV0E3Be RYTsfzhsvkaeiPF9GKBk ZOCjgG91Zk7bwLygOf9u MOAcXMR5UUGapXEpV1Zy eD3tArAbHUIwYWAm U7PjhCAkFPycG186IOwt RoA2XLOavnCzY5UuPKCg zJnsOrM3v7Y9Vj6TZHz9 MQ44NZ69uLUws5A7 dCY1V6MiCMVwzhpnzpct yME1RBYqAEKqeS70Vf5g xRgyTz2lSUGxIWL3ODNa bFEyB4BqcA3eRqWk ADUtXMRpV8EcmMAaGIfo P255VBgsJqU0ZTBwisXi W5EeEYPupFfsGqJ5y9X3 Sw3VTHEhKH83CKD8 aAJ1DN57TQ43E9PeCezy dGFibGU+PHRhYmxlIHdp ZHRoPScxMDAlJyBzdHls XB6yKz9kJJNhGYZt yTrsnMVbSeTvz0etSKSb IRvyXW4lvIdyV3QayKA3 RJOuh4g8Sm46B67zC2Gg dXA+JKUauBQ9mWI9 hV6yZsQjGeE8JSjfZ691 NpVolTKtHmlms1jle2to fRh7WyX6EBKgawVboFfi EBW9o1JyFj21H30y IHdpZHRoPSIxNSUiIHZh eAdgyv2msZ9eOw4+PGNv mDL0eDY8xT8mFjDlCzQ0 AEplK100WcLgjSXq Qyklf4nnt4ezaUe0HwGm QOIbyjLgbYqcZZF6h3An Qm37C5VupPrps7DbEbt1 hb08zBTza0P0mLY4 Z7NbFPCviwiikCYqrXaw YM8yOZWtyiwtMOXzaI2r QIZwZ6x7DuGnIeT8YXgs G8IbthM0WMDcbQQm GOjvWUF9V45bk6Z7JXCm IWBlZES7aJX7rY5qfObu bjogbGVmdDsgdmVydGlj OHefOPqiG345QZVc oQibVDYmfE5eKCQajKMb sVquEM9xXOVjmchwFbeZ WX1IPZGYAXqTVOOUTCC9 O4WvAlq2ZLSkcMzg AB5isOFpTGxqGt5ffXnq oOxnNV1gULTciwxqGTTu gD3yBDKpxUIcpUgoXE4e KHPoygoyl823GkDx QLE9MBLihCTdG4SmxY9e OgMoPNRiFMSmV0SeuTEe UHkhV421VPfyTbY9RFWj gyTsM3QkTYOcsFmw WtM2p2P9Ep0dCX4jXJ0a IGqpQL80VY99sBMea1S6 lSH4R2FlVDSveuftiisf fCO5HZVfXFKsyF47 zIYeDDerTi4yt1P3m900 JHYnTIHpuT69Oz5hbLdq MEKdiPDDbL8cggcwh7tt cjogIzAwMDAwMDt0 EGy1JKQqzGxcFmDfTBU8 PfD2TQF6fQOhiV2rvTst nqbexS1vTui+NDggWWVh vpZ9Q3LkPas3PBAs kLbaKF2hbGCkLZrkLk8p zAmovMwoMV7aMUEndbrb OHZeiI0yJLFnbLJyzXzf JH7xASIdqidnl888 EkToENR9WVFrxXSbT0Ys yZ5aZgLkIGUrMEDkE6Fq yPSwIWbcT438QHboOyH1 AWGiwcXsV7NsGPRp lMddJyX1m1N1Tc9WOXbd XE26GO37bSYop4U0iPD6 T1IoBETpdsxvcxiuzAE4 GGUtOGIhyP86bZLa SJhqYr2gv8W5q289FFRt IFHrlL92Yh5gzFmgKZFf pFHJdE0czijvp9oybolf WhEgYDWqVVo5GAp2 ELHjkAioOrAeNHI2WwF5 LZQ4lNSggF2kmKhvttbo lX8tAsv+H4E9oRW7sETu dDwvdGQ+ZA82kk75 N6OaQugvPls1MXMeVBC9 fQU3wT7zDHVeLUqju3V5 mOL2A3BxsbKqde4pf2os CYKdABfrB89irVFl c8O6DWMrvVL5FJLkuQfx ZlKhcO26Eky+PGNvbGdy e4MdGhphv3bep8bbgRq2 IjMwJSIgdmFsaWdu BGZ4s4KjKl70S23cDXnf ZHRoPSIzMCUiIHZhbGln ik1ilG8oSn3+PGNvbCB3 oSP7tX0bLrIlVaL1 RWkmL428BoPfwMRvIagc e8hbr6dijIh4BhSgVGCu gpFylDqpWVT4n4MpUt26 F4XbmVvkh0LvSru9 gf49aSKiw0F0eHU9I9Jk PXOuqjyphOMleCxuXE4g TALufjxdUIJyfS3fKUNv N5l3ClPsIzR4XNwy F9GuwxB4HUTvyFPdAJNu kFTAqF7oqbrje3nflzgr JzAnVSFhFUj4WSq1NVQj fZnlMnXjCQF7CqI5 DFE1bTOqmC8ejVieljal oR2rWkl+BGq4y4fvoMWc XA6xjQH6XT66SA83zNYa v5Q3mAS5H7PxMCRk rkkrglppoPP5EHWsJCOn kX49Xc0cfXacBf9eCRXz XYL1TMTkpHLbT5FhxV0s FkItVYFzDCPzU0Fl rGZhXHiuC528RMvtCyY9 YGFshpUzP4GcWSWbgCto NmP9g5G0Mi6HTZ85VY41 VX08sLQwj7U6aOV0 I9IjHRMtzkfjpilgkLV7 ZZVfTOVouH21Rj0yfMrf Uu9lMYPjNBI6BUKilYIx R6QkaA9qEvIoCHSu QIHiF8KzdERtPGwoH715 RWakMoI9DQSpfeRiO2Qq EWDhrUphPpI7n4G5Ce7Q Rq65RJ31PQ69cQRl u2R3yML3I6BlLUHxfcnk xrstgXT8JGZtKPJtrC99 Pc6ntBovTx8bZBOcLYV5 MXBhvQSjC8VrjF8g BpJgNNUcNZDpC0SuaDCy IGqoK384NWuvPoT9QAWt dpSnI0SmWWDobJouTmZ0 u8Z5Gc3SVShomta1 O0TdZivbbSN+LO19MYOf EW47eWSjtJBnq6ebkHv8 GsZjLXWeUKV8jEtqYHxh a5KwBMSsE14iyGMj c2U6 (more content not included)... Normal [facility] LE Venous Duplex Righton 01-27-2022 LE Venous Duplex Right Exam Date/Time: 01/26/2022 [...] Pringle M.D. Transcribed by: GARCIA Technologist: RAMON [facility] Consent for Treatmenton Consent for Treatment [id number] #1.00CD:127 [facility] Physician Orderon 01-26-2022 Physician Order [id number] #1.00CD:127 [facility] Coding Summary.on 01-25-2022 Coding Summary. CD:[id number]:[id number] Gh0bWw+PGhlYWQ+PE1FV JPbX10etZUlcM5YF0tXE C3ZEKVIORAGNJ9LDJ3re ES9ZNflY4GjywIh RydbyDFnUH81MKt4DNF9 xWarTTuvyL6xaUDbM2r3 RbZuWY72uX45HYdxHBZe ToP1ZbHrqdlfnBSi D8iqTtMlsEJzNxw+PHRh YmxlIHdpZHRoPScxMDAl XgZwkFzcEL5sEm8aAJYm LWNvbGxhcHNlOiBj n6obQRDkAKkqYN8rkDrh H5BnuDK8UTUgf8o3Vq15 dHI+XOFuQPE5qEsfZZug d192WdHvd4wfPWE9 iCCjRJohGKN1K18nj3J8 SODdYHKbPCE2bHQ5lM6r cPndhjzkO1VouWCbHaN5 VJO6fBSsxZ5oiYlh ucyveE0aRas+T31FCF7N EPPNNE2DBkw0B4GyPdgm dHI+PS91CEFkPM20kUTb dZLgk4vcsQg9UhDi EJYfQGF6tEbbGAihx8Oo KIInK73axAQxf9R8RVIu oUgmoOXpVxAymIF8yU6y SGaixvfnj9nyleka Vvdkf1unvf88sD47J17g LYwvAHKiSCL4UJAlIOHt tMcggv3keH3vZi9+IDxj f3oqs9hxlGy9NaZf WPNbjuWrmXvgINX3p8Bb Ch19V2NpuYxyg3FmCss8 rg08bUOjm1L7kOC2NTaf OHMczI0aLZkmDbN9 QFTgOpWtsB72rDBeJAlh Mx7khVkciOjiWM5nMSYv msjjOWDkxB4oSOTokYUr kGuvZD8kQCPudwbx d556BhVeUUB5DIFzwNCa Q1ZlrP2rJxGaGPUoNYIx O8BeaVOlJUdlW352PRab XqY6BCEwqnGkL1Js LBYkkCqyAuL1s4B2Sn8R h7GtktdrZVZ4YLbcPSUt DmUqMhIqDwF8N1ThQks6 ZZCzoEgpDG9uU0Da QALejzdocxlerXJ4CEXf XOXzeJ67xLPaJLxxIs1y h1V6b989LGAcLWKbxE88 Xa0rwVyaAKUdgADS kD1rmdkly8vmxdqeVzJg NQRxJUq5MZy9FNJktJhf HqMeMIY0IdI1OIO3lMNr pU1xrUibzdgwsH2v Oyc+C90kmO1vBFZ1DAN9 afxtVWPwwlBhIS50IK28 B7TwGcmfcEUphSZ+PGRp qjPriVcfOJ8eHuAc c6tgu7JrCPwnA8JzMOWi SUegDgm2OZToFLU3eNU2 dP6dFQPiAOcvj5C7oTQ8 Z2QmhxErju7hz3cc XFToIPeqL68kgSNhj6K2 OJPdwOB1RQIwzMxtCiLa iJ73Scr+RWNjiXxnb5Fs Nupkr6lzl5wyjMm2 IjMwJSIgdmFsaWduPSJ0 j8UmKe53Z10wSPnzVKKh YKYaNYYlCOGnzEyavc7w cA8mAi0+PGNvbCB3 aDA5aF8pCUCyBdA5FNyw V481YtZohYOtSzhed3vu y8lqpLh2QcUlISKgabId rXfxSLV2w4XzCl56 W39rHLztDBSsWSPdHBEi AZKklUbktr9coM6eGo2+ YF3wu6ldxe41xS32yPJ+ VRUuPTN2jCilZJpp BSInhM6yPAqcJoM5DMSq VdIelN20wBPaCCnhVj9v fZmpvCvoTR8tKWAipfem v818IjWos5apLPTi uJVhREqrXUC8K74wr4O2 DNEmYJEtFZA1uUY1jX8e bGlnbjogbGVmdDsgdmVy eTwhENimWVfeH859 IHRvcDsnPlBhdGllbnQg HtVnAUc8W1DeVsr1IGFn pKriYC9jqICuKOudQc8h qVjvwObrLE5uUZGs txpgy754GyGqn0gtHTTl xCNhRJxpFWV9N20wb4I8 BPPrTZMdFAG9lAD5eJ7h bGlnbjogbGVmdDsg nzDnuMceJQstQZdxQ742 IHRvcDsnPkJpcnRoIERh iZG2SS46AB42bREti9S8 gCC2S6UnFQMbecgi lsxmoYH1DEPxIQSqmQ91 Al6eyNvcSf7pJRZeCVL5 XPBvuTLbG6VjlH1sAoJh OJXvXJIyA4ElqRQj EPifR852MWkzTkW6IZEp buAwT0FdXUFdsPmyPoK7 i8K6Fj2TO3O5DD48FC05 fQPqz7Z6xPI1U1Tl GTMazggtghpsaFE7FDOj GVOmiZ27Cq6cdHyjAe3x IVQqLXV2PHDtuVPsP9Xp sX1yKoEkGHVfUCTe U4EakCHlJKeqO766IAif RxT7XVLskxAwI2VsMIDh eBbiFaZ3i8E5Dk1UMZi0 XQ21PG88jCIta7M2 sVS2K0YpGIWitnvigscq iLK5JYHiBKCbaX60Yg3d yBlwXj6eEJJvEHC6VSKs cWSaD4GgyU5mTaIb DKFqVAPsK6MubWQkOZoh U861DIrkMiN5MVGvvrCc U8HxIXUsqEmmBtX8c9M6 Ru6CNBMlFH37ZGV7 uCU6ZI08YU03V1RjQgfv dGFibGU+PHRhYmxlIHdp ZHRoPScxMDAlJyBzdHls CZ5uZu8xGMBnSELv sWytzKJpSlZzz3uwBTQe WDiaVO9rfMaqB2EuuTU3 EGAzw0z9Oj98B90qP9Uu dXA+NCEguSB3nGO4 wW5rHbGmPmE7XUnsF310 MpWryNShPmlsf2yqk9bq iGl3PmA0BBCvnsUswDbj QBH0i1VcNo85I66c IHdpZHRoPSIxNSUiIHZh eOumjb2szB7kSn0+PGNv oFL8hZJ5pA2mSfWqYgY4 UBadZ716HoGarEBg Lckur7dub5rphFc3HuJm UXHfxvDgzFewMPQ4e8Vt Ok72E3IngHmmw4TcRij4 hc03mNEhh5Y9cDN0 L2NbFSWfzpmxbSLwvNwc CX2kVKKmdljwBVCmcI4e TQXtG8q1CyYgYvH5TQdx B6CrrnF9PZZjzHMt NCdxYYP2P40cj4T3SXTd XQTyYPL0iCE8gV5lrLvr bjogbGVmdDsgdmVydGlj NDigHGmhU391CMLp sOflTNYodQ0eQEWogWAo wSkgAG2dDCLxmrhxSxtT UY9FCOFBQOjSOXQAAXP4 G1IeTdp7MMKkfTyj VM6icJSjJMsmIb0kqSrr nQdyXU0oGCIjcaizIAMt zF7jMHGuvSPppQadNK4w GAOpmavtx477KmKs AAV7VCXkmQHgO1AnsG0v NcRmXMYcOSOqU3YwkFSl HNghJ776HHivMrC1KCKv azGnO0QeOFSwmByl YhG8m4C4Hv2kEY2nYO9o XSnbKJ14GG31yMLza9K1 hHS3D1CxXCYxkaotqmgd wEK1HQUeDYYbaZ23 sJGnFAqjGj8hs6E9r418 BSKqMOSgeN98Af2seHdv RCHwdWFBrP5enzkxx0uz cjogIzAwMDAwMDt0 ZCq5YNFxoXxqIzJyIUY9 QzO4EKT8wDQhhP3ecYwf djdbxA0gYoz+NDggWWVh gaT7E9EqWaq1KEXl oQuvWI8fkMWdGTsyJt0o oMdkqAesIE0jRWCbxymq DGKspT3jUOKdcREzoSbs DV5xXSLunergb156 MxUgARX9CXFltMIvL5Bg uX3zEwQpTLDnTFZwJ0Xh iHEsAGdwA766HGwzMeC3 ZUZzsoSqM0WtXZIn fBkjDhY7t9F7Cd3IORif EP52RS20kRLsl1Z5gDR8 J3UzAHNpkqwhsypueAL9 ZNAqEYHcaR66sJVs JSeuVu2vm6M8g080KOVn NHXwdT45Lf8imYqtXIWw sIZBiA8xcjnkq3zmynsu DoXySTPeUVc6UBy7 AGMddSgoOvKkEDO8LbB4 KDJ0mVUvpQ0wqTpznbpy eW2wWyl+YD2vdFartE8m mH0BTO6rPIFfwHTH wWZbWOY7XO28UC95C1Yf PjwvdGFibGU+PHRhYmxl IHdpZHRoPScxMDAlJyBz dCrvMD0lUo5eJGWk GAAcnSsbkEBoYgDgj0ew QTIpKPicEE9jrIduS1Wg zHA7JFPyj0b9Uo47I40t B8EebUK+PGNvbCB3 vHP8lR6kWtLiHhC7KHhh S927LaWncTCmSbovz3qi t7ewqNy8KqHfBGWseuTl jVupVMJ0a3VwLv92 U01bYLbyLTGdMGTxQCCh GVRwjObxxk8qbJ6cUl5+ KSYutSG8eHW3sH1hXrWe WsQ6CRgeL840PbSd qDZqCxznH59eS3OacUK+ AQGhZxr7ZFBijAwhTY5f xWJsLHekIl3qTNX1UtRy KyBkFLcxT2FhVIZp evamgzurnBG0ZYIwSHVt zD59Od1stFvyIz8qXYXk DDO3EBQtrUImL0YojJ5p TkFjWLAgSQYdA3Ir oECvOLetS149BCihSiH6 RCBtwaUxH5VoZACfsBnj OcC9h0U4Tv6LgCninBGm LA2iSjUyTKe3Q5Tn Shb2ILMipFtuJF4dcMUm DHolXe7tuQzhiUlbSH8a VGDovuacl275GaCjr1pd IDEwcHQgVGltZXM7 D63zu6W0NLLrLYGqCLJ7 zMY7dE9tbCgrkononZCo dDsgdmVydGljYWwtYWxp H044GENqsJrsFmMM Wpq7I7ZkMvz3QNGhbMzg WE5mdIOdPZlpKn3tgQvc dDgdSK7cWPBavbkle683 DwQft7owJJSubOPz TMfrNIL4K05dt8B5KFYc QXLaAWR2lZO5nG1wqRka bjogbGVmdDsgdmVydGlj EOzoMXuvR218PIRb yZlwRh1JVbo2Z9LkHxh5 GNFgcHqpXE3gxDZfSFxk Py2syGltdHhiGH7wYIKf faztx943RmDjd1ki PNZmnGHjWUxzBRU4Y32r n4A9QAHpLLGwGSJ7fIX8 mY4rkXazfhiamUXaoYzm dmVydGljYWwtYWxp F832PBEkoXrtQgRphXUc OjwvdGQ+VF63db35U3Ok IogpRqs1DTGfCFX2jGZ5 mM2eOXFfSQzuf7U0 bGU9 (more content not included)... Normal [facility] Blood Bank Slipon 01-24-2022 Blood Bank Slip [id number] 0#1.00CD:127 Normal [facility] Consent for Anesthesiaon Consent for Anesthesia [id number] #1.00CD:127 Normal [facility] Discharge Instructionson Discharge Instructions [id number] #1.00CD:127 Normal [facility] IntraOperative Documentson 0 01-23-2022 IntraOperative Documents [id number] #1.00CD:127 Normal [facility] Preoperative Documentson Preoperative Documents [id number] #1.00CD:127 Normal [facility] Preoperative Documents [id number] #1.00CD:127 Normal [facility] Prescriptions/Work Noteson 0 01-23-2022 Prescriptions/Work Notes [id number] #1.00CD:127 Normal [facility] ABO/Rhon 01-22-2022 ABO/Rh Positive Invalid Interpretation Code [facility] Comment on above: Performed By: #### 1 [id number], [id number], [id number], [id number] ####[facility] [address] [place] [address] ABO/Rh History Checkon 01-22 ABO/Rh History Check Verified Hx Blood Type Normal [facility] Comment on above: Performed By: #### 1 [id number], [id number], [id number], [id number] ####[facility] [address] [place] [address] ABSCon 01-22-2022 ABSC Gel Interp Negative Normal [facility] Comment on above: Performed By: #### 1 [id number], [id number], [id number], [id number] ####[facility] [address] [place] [address] Blood Bank ID#on 01-22-2022 BBID# [id number] Invalid Interpretation Code [facility] Comment on above: Performed By: #### 1 [id number], [id number], [id number], [id number] ####[facility] [address] [place] [address] Capillary Glucose POCon 12-27 Glucose [Mass/Vol] 168 mg/dL High 55-99 [facility] Comment on above: Result Comment: Kala clara Meter Performed By: #### 2 [id number] ####[facility] [address] [place] [address] H&P Updateon 01-22-2022 H&P Update [id number]# 1.00CD:127 Normal [facility] Inpatient Patient Summaryon 01-22-2022 Inpatient Patient Summary [facility] [address], [place] [address] [facility] Clinical Discharge Instructions PERSON INFORMATION Name: HARI THORNTON [facility]#:[id number] PHYSICIANS Admitting Physician: Malina Ballard DO Attending Physician: Malina Ballard DO PCP: NARAYAN GAGNON DO Discharge Diagnosis: Localized osteoarthritis of right knee Comment: PATIENT EDUCATION INFORMATION Instructions: Post Op Patient Instructions - FT (CUSTOM); Isamar - Total Knee Arthroplasty (CUSTOM) Medication Leaflets: Follow up: With: Address: When: Malina Ballard [address] [place] [address] [employer] (1) Comments: Keep scheduled appointment MEDICATION LIST [...] every day., high heart rate Comment: Normal [facility] Main OR Intraoperative Recor don 01-22-2022 Main OR Intraoperative Record IntraOp Document Type FT Summary Primary Physician: Malina Ballard DO Finalized Date/Time: 01/25/22 14:15:40 Pt. Name: HARI THORNTON/Sex: 1975 Male Med Rec #: [id number] Physician: Malina Ballard DO Financial #: [id number] Pt. 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 Alberto supervising Last Modified By: Nikolai RN, Janette 01/22/22 Nikolai RN, Janette 01/22/22 Nikolai RN, Janette 01/22/22 08:34:19 08:34:19 08:34:19 Entry 4 Entry 5 Entry 6 Case Attendee Sedrick SALGADO, Amee Rodriguez PRICING LEAD, Cas Menchaca RN, Janette Role Performed Scrub - Primary Staff - Other Research Lab Assistant - Primary Time In 01/22/22 07:05:00 01/22/22 [...] Janette 01/22/22 08:34:19 08:34:19 General Comments: Marlen Mckinney rep present for case.-ROLF Martinezelectrical controls assembler Protocols FT Pre-Care Text: Implements protective measures [...] Time Out Babatunde Gibbons CRNA, Given Participants Malina Ballard DO, Wilson PRICING LEAD, Sedrick Casanova PRICING LEAD, Jennifer Tian PRICING LEAD, Nikolai Smyth RN, Sedrick Savage CST, Marcus Busch RN, Leandro Yeager Time Out Complete 01/22/22 07:14:00 Outcomes Met? Yes Last Modified By: Janette Menchaca RN 01/22/22 07:32:05 Post-Care Text: The patient is [...] (Pre Procedure) (more content not included)... Normal [facility] Main OR PACU I Recordon 12-27 Main OR PACU I Record PACU Phase I Document Type FT Summary Primary Physician: Malina Ballard DO Finalized Date/Time: 01/22/22 09:40:25 Pt. Name: HARI THORNTON /Sex: 1975 Male Med Rec #: [id number] Physician: Malina Ballard DO Financial #: [id number] Pt. Type: A Room/Bed: [facility]/25 Admit/Disch: 01/22/22 05:52:56 - Institution: Case Times [...] By: Janna Hi RN 01/22/22 09:40 Normal [facility] Main OR PACU II Recordon Main OR PACU II Record PACU Phase II Document Type FT Summary Primary Physician: Malina Ballard DO Finalized Date/Time: 01/22/22 19:01:52 Pt. Name: HARI THORNTON/Sex: 1975 Male Med Rec #: [id number] Physician: Malina Ballard DO Financial #: [id number] Pt. Type: A Room/Bed: [place] [address] Admit/Disch: 01/22/22 05:52:56 - Institution: Case Times [...] Signed By: Connie Mosqueda RN 01/22/22 19:01 [facility] Main OR Preoperative Recordo n 01-22-2022 Main OR Preoperative Record PreOp Document Type FT Summary Primary Physician: Malina Ballard DO Finalized Date/Time: 01/22/22 07:28:30 Pt. Name: HARI THORNTON/Sex: 1975 Male Med Rec #: [id number] Physician: Malina Ballard DO Financial #: [id number] Pt. Type: A Room/Bed: [place] [address] Admit/Disch: 01/22/22 05:52:56 - Institution: Case Times [...] Signed By: Janette Menchaca RN 01/22/22 07:28 [facility] Monitor Recordon 01-22-2022 Monitor Record [id number] 6#1.00CD:127 Normal [facility] Operative Reporton Operative Report SURGERY DATE: 01/22/2022 [...] utilized for bone preparation and copious irrigation. Huxley Simplex cement was mixed. All components were [...] COUNT: Correct SPECIMEN: Bone PATIENT CONDITION: Satisfactory Malina Ballard D.O. lr Dictated: 01/22/2022 [id number] Transcribed: 01/22/2022 cc:Narayan Gagnon D.O. [facility] Comment on above: Result Comment: Elec tronically [...] undergo general anesthesia for the proposed procedure. RBAIN Mcnally Dictated: 01/22/2022 [id number] Transcribed: 01/22/2022 [facility] Comment on above: Result Comment: Elec tronically Signed By: Babatunde Gibbons CRNA\.br\Date and Time Signed: 01/22/22 10:13 EST Outpatient Surgery Discharge Instructionon 01-22-2022 Outpatient Surgery Discharge Instruction [place] [id number] Patient Discharge Instructions PERSON INFORMATION Name: HARI [...] Follow up: With: Address: When: Malina Ballard [address] [place], [place] [id number] Business (1) Comments: Keep scheduled appointment Pharmacy Information: You may receive a survey from [facility] asking you to rate your care experience. Your feedback is important and will help us understand what we do well and how we can improve the quality of care we provide to you, your loved ones and our community. It?s an honor to serve you. Thank you for choosing [facility] HERE ARE THE MEDICATION CHANGES THAT OCCURRED [...] high heart rate PATIENT EDUCATION INFORMATION Instructions: [place], [place] [facility] DISCHARGE INSTRUCTIONS TOTAL KNEE [...] physical thera (more content not included)... 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 It is therefore advised not to drive until after your first office visit following surgery FOLLOW-UP OFFICE VISIT: Malina Ballard, DO [facility] [address] [place] [address] Reviewed: 03-02 [facility] Progress Note-Physicianon Progress Note-Physician Patient: HARI THORNTON [...] = 1 (more content not included)... Normal [facility] Comment on above: Result Comment: Elec [...] Start date (more content not included)... Normal [facility] Comment on above: Result Comment: Elec tronically Signed By: Babatunde Gibbons CRNA\Date and Time Signed: 01/22/22 07:37 EST XR [...] Frankel MD Transcribed by: GARCIA Technologist: [employer] Normal [facility] Consent for Procedure/Surger yon 01-19-2022 Consent for Procedure/Surgery [id number] #1.00CD:127 [facility] Outside Recordson 01-19-2022 Outside Records [id number] #1.00CD:127 Normal [facility] Basic Metabolic Panelon 10-27 Anion gap [Moles/Vol] 13 mmol/L 9 - 17 mmol/L [facility] [email or web address] Calcium [Mass/Vol] 10.2 mg/dL 8.6 - 10. 4 mg/dL [facility] [email or web address] Chloride [Moles/Vol] 103 mmol/L 98 - 107 mmol/L [facility] [email or web address] CO2 [Moles/Vol] 23 mmol/L 20 - 31 mmol/L [facility] [email or web address] Creatinine [Mass/Vol] 0.59 mg/dL Low 0.70 - 1.20 mg/dL [facility] [email or web address] GFR >60 >60 mL/min [facility] [email or web address] GFR Non- >60 >60 mL/min [facility] [email or web address] Glucose [Mass/Vol] 147 mg/dL High 70 - 99 mg/dL [facility] Interpretation and review of laboratory results Abnormal [employer] Potassium [Moles/Vol] 4.4 mmol/L 3.7 - 5.3 mmol/L [employer] Sodium [Moles/Vol] 139 mmol/L 135 - 144 mmol/L [facility] [email or web address] Urea nitrogen (BldV) [Mass/Vol] 10 mg/dL 6 - 20 mg/dL [employer] Urea nitrogen/Creatinine (Bld) [Mass ratio] 17 [facility] [email or web address] CBC Auto Differentialon 10-27 Absolute Eos # 0.09 [facility] th Absolute Immature Granulocyte 0.06 [facility] Absolute Lymph # 2.21 [facility] He alth Absolute [place] # 0.68 [facility] Hea lth Basophils (Bld) [#/Vol] 0.06 10*3/uL [facility] Basophils/100 WBC (Bld) 1 % 0 - 2 % [facility] [email or web address] Differential Type NOT REPORTED [facility] Eosinophils/100 WBC (Bld) 1 % 1 - 4 % [facility] Hematocrit (Bld) [Volume fraction] 41.6 % 40.7 - 50.3 % [facility] Hemoglobin.gastroin testinal spec 1 Ql (Stl) 14.2 g/dL 13.0 - 17.0 g/dL [facility] [email or web address] Immature granulocytes/100 WBC (Bld) 1 % High 0 [facility] [email or web address] Interpretation and review of laboratory results Abnormal [facility] [email or web address] Lymphocytes/100 WBC (Bld) 35 % 24 - 43 % [facility] [email or web address] MCH (RBC) [Entitic mass] 32.1 pg 25.2 - 33.5 pg [facility] MCHC (RBC) [Mass/Vol] 34.1 g/dL 28.4 - 34.8 g/dL [facility] MCV (RBC) [Entitic vol] 94.1 fL 82.6 - 102.9 fL [facility] [email or web address] Monocytes/100 WBC (Bld) 11 % 3 - 12 % [facility] [email or web address] NRBC Automated 0.0 0.0 per 100 WBC [facility] [email or web address] Platelet distribution width (Bld) [Ratio] 11.9 % 11.8 - 14.4 % [facility] [email or web address] Platelet Estimate NOT REPORTED [facility] [email or web address] Platelet mean volume (Bld) [Entitic vol] 9.5 fL 8.1 - 13.5 fL [facility] [email or web address] Platelets (Bld) [#/Vol] 293 10*3/uL [facility] [email or web address] RBC (Bld) [#/Vol] 4.42 10*6/uL 4.21 - 5.7 7 m/uL [facility] [email or web address] RBC (Bld) [#/Vol] NOT REPORTED [facility] [email or web address] Segmented neutrophils/100 WBC (Bld) 51 % 36 - 65 % [facility] [email or web address] Segs Absolute 3.18 [facility] W[facility] ([facility]ld[facility] [#/Vol] 6.3 10*3/uL [facility] WBC (Bld) [#/Vol] NOT REPORTED [facility] EKG 12 LeadOrdered By: Zheng Anderson on 11-23-2021 Atrial Rate 77 BPM [employer] Work Phone: P [place] 66 degrees [employer] Work Phone: P-R Interval 156 ms [employer] Work Phone: Q-T Interval 370 ms [employer] Work Phone: QRS Duration 92 ms [employer] Work Phone: QTc Calculation (Bazett) 418 ms [employer] Work Phone: R [place] 54 degrees [employer] Work Phone: T [place] 74 degrees [employer] Work Phone: Ventricular Rate 77 BPM [employer] Work Phone: [employer] Work Phone: EKG 12 Leadon 11-23-2021 Normal sinus rhythm with sinus arrhythmia Possible Left atrial enlargement Nonspecific ST abnormality Abnormal ECG When compared with ECG of 16-NOV-2020 09:53, QT has shortened Confirmed by COCO ANDERSON ([id number]) on 11/23/2021 12:44:06 PM [facility] Coco Anderson MD - 11/23/2021 Normal sinus rhythm with sinus arrhythmia Possible Left atrial enlargement Nonspecific ST abnormality Abnormal ECG When compared with ECG of 16-NOV-2020 09:53, QT has shortened Confirmed by COCO ANDERSON ([id number]) on 11/23/2021 12:44:06 PM [employer] Work Phone: Hemoglobin A1Con 11-23-2021 Glucose [Mass/Vol] 214 mg/dL [employer] Comment on above: The ADA and AACC rec ommend providing the estimated average glucose result to permit better patient understanding of their HBA1c result. HbA1c (Bld) [Mass fraction] 9.1 % High 4.0 - 6.0 % [employer] Interpretation and review of laboratory results Abnormal [facility] - Chemistry and C hemistry - challengeon 11-23-2021 GFR/1.73 sq M.predicted MDRD (S/P/Bld) [Vol rate/Area] [facility] Comment on above: Average GFR for 40-4 9 years old: 99 mL/min/1.73sq m Chronic Kidney Disease: <60 mL/min/1.73sq m Kidney failure: <15 mL/min/1.73sq m eGFR calculated using average adult body mass. Additional eGFR calculator available at: http://www.[employer].com/multiple_crcl_2012.htm Stage 1: Some kidney damage normal GFR Stage 2: Mild kidney damage GFR 60-89 Stage 3: Moderate kidney damage GFR 30-59 Stage 4: Severe kidney damage GFR 15-29 Stage 5: Severe kidney damage GFR <15 ESRD - chronic treatment by dialysis or transplant No [facility] 021 TSH Qn 3.67 m[IU]/L [facility] Urinalysis with Microscopico n 11-23-2021 - [employer] Amorphous, UA NOT REPORTED None [facility] Bacteria, UA NOT REPORTED None [facility] th Bilirubin Urine Negative NEGATIVE [facility] Hea lt Casts UA NOT REPORTED /LPF [facility] Hospital Color, UA Yellow Yellow [facility] Crystals, UA NOT REPORTED None /HPF [facility] th Epithelial Cells UA 0 TO 2 [facility] Glucose, Ur Negative NEGATIVE [facility] Ketones Ql (U) Negative NEGATIVE [facility] Leukocyte esterase Test strip Ql (U) Negative NEGATIVE [facility] Mucus, UA NOT REPORTED None [facility] Nitrite, Urine Negative NEGATIVE [facility] th Other Observations UA NOT REPORTED NOT REQ. [facility] pH, UA 6.0 [facility] Protein, UA Negative NEGATIVE [facility] RBC, UA 0 TO 2 [facility] Renal Epithelial, UA NOT REPORTED 0 /HPF [facility] Specific [place], UA 1.020 [facility] Trichomonas, UA NOT REPORTED None [facility] Turbidity UA Clear Clear [facility] Urinalysis Comments NOT REPORTED [facility] Urine Hgb Negative NEGATIVE [facility] Urobilinogen, Urine Normal Normal [facility] WBC, UA 0 TO 2 [facility] Yeast, UA NOT REPORTED None [facility] Glucose, Whole Bloodon 11-24 Glucose [Mass/Vol] 141 mg/dL High 74 - 100 mg/dL [place], [place] Interpretation and review of laboratory results Abnormal [place] COVID-19on 11-19-2020 SARS-CoV-2 [place] SARS-CoV-2 Not Detected Not Detected [place], [place] Comment on above: The specimen is NEGATIVE for SARS-CoV-2, the novel coronavirus associated with COVID-19. A negative result does not rule out COVID-19. Ching SARS-CoV-2 for use on the [employer] is a real-time RT-PCR test intended [...] this assay. Fact sheet for Healthcare Providers: https://www.fda.gov/media/697219/download Fact sheet for Patients: https://www.fda.gov/media/572390/download METHODOLOGY: RT-PCR SARS-CoV-2, [place], [place] Source .THROAT SWAB [place] Comment on above: CORRECTED ON 11/17 Jose Alfredo T 1007: PREVIOUSLY REPORTED .NASOPHARYNGEAL SWAB MRI BRAIN W WO CONTRASTon Unremarkable MRI of the orbits. Old right basal ganglia lacune. Mild chronic microvascular disease within the periventricular white matter. [place] EXAMINATION: MRI OF THE BRAIN WITHOUT [...] The soft tissues demonstrate no acute abnormality. [facility] [place], [place] Tod, Mhpn Incoming Radiant Results From [facility] - 11/17/2020 11:22 AM EST EXAMINATION: MRI [...] microvascular disease within the periventricular white matter. [place] Basic Metabolic Panel (BMP)o n 11-16-2020 Anion gap [Moles/Vol] 12 mmol/L 9 - 17 mmol/L [place] Bun/Cre Ratio 14 [place] Calcium [Mass/Vol] 10.2 mg/dL 8.6 - 10. 4 mg/dL [place] Chloride [Moles/Vol] 100 mmol/L 98 - 107 mmol/L [place] CO2 [Moles/Vol] 23 mmol/L 20 - 31 mmol/L [place] Creatinine [Mass/Vol] 0.66 mg/dL Low 0.7 - 1.2 mg/dL [place] GFR >60 >60 mL/min [place] GFR Non- >60 >60 mL/min [place] Glucose [Mass/Vol] 145 mg/dL High 70 - 99 mg/dL [place], [place] Interpretation and review of laboratory results Abnormal [place] Potassium [Moles/Vol] 4.2 mmol/L 3.7 - 5.3 mmol/L [place] Sodium [Moles/Vol] 135 mmol/L 135 - 144 mmol/L [place] Urea nitrogen [Mass/Vol] 9 mg/dL 6 - 20 mg/dL [place] CBCon 11-16-2020 Erythrocyte distribution width (RBC) [Ratio] 12.3 % 11.8 - 14.4 % [place] Hematocrit (Bld) [Volume fraction] 40.6 % Low 40.7 - 50.3 % [place] Hemoglobin (Bld) [Mass/Vol] 13.7 g/dL 13 - 17 g/dL [place] Interpretation and review of laboratory results Abnormal [place] MCH (RBC) [Entitic mass] 32.5 pg 25.2 - 33.5 pg [place] MCHC (RBC) [Mass/Vol] 33.7 g/dL 28.4 - 34.8 g/dL [place] MCV (RBC) [Entitic vol] 96.4 fL 82.6 - 102.9 fL [place] Platelet mean volume (Bld) [Entitic vol] 9.4 fL 8.1 - 13.5 fL [place] Platelets (Bld) [#/Vol] 210 10*3/uL [place] RBC (Bld) [#/Vol] 4.21 10*6/uL 4.21 - 5.7 7 m/uL [place] WBC (Bld) [#/Vol] 0.0 10*3/uL 0.0 per 100 WBC [place] WBC (Bld) [#/Vol] 5.5 10*3/uL [place] EKG 12 Leadon 11-16-2020 Atrial Rate 88 BPM [place] P [place] 66 degrees [place] P-R Interval 164 ms [place] Q-T Interval 392 ms [place] QRS Duration 92 ms [place] QTc Calculation (Bazett) 474 ms [place] R [place] 61 degrees [place] T [place] 90 degrees [place] Ventricular Rate 88 BPM [place], [place] Tod, Mhpn Incoming Ekg Results From [facility] - 11/16/2020 5:30 PM EST Normal sinus rhythm Nonspecific T wave abnormality Abnormal ECG When compared with ECG of 08-AUG-2004 08:48, Nonspecific T wave abnormality now evident in Inferior leads QT has lengthened Confirmed by Carla ANN, Adama ([id number]) on 11/16/2020 5:30:37 PM [place] Normal sinus rhythm Nonspecific T wave abnormality Abnormal ECG When compared with ECG of 08-AUG-2004 08:48, Nonspecific T wave abnormality now evident in Inferior leads QT has lengthened Confirmed by Adama Aguirre MD ([id number]) on 11/16/2020 5:30:37 PM [place] Metabolic Panelon 11-16-2020 GFR/1.73 sq M predicted among non-blacks MDRD (S/P/Bld) [Vol rate/Area] [place] Comment on above: Stage 1: Some [...] body mass. Additional eGFR calculator available at: http://www.Mom-stop.com/multiple_crcl_2012.htm Vital Signs Date Time Vital Sign Value Performing Clinician Facility 09-17-2024 10:57-0400 Body height 167.64 cm DO Narayan Ball Work Phone: [facility] 09-17-2024 10:57-0400 Body mass index (BMI) [Ratio] 27.8 kg/m2 DO Narayan Ball Work Phone: [facility] 09-17-2024 10:57-0400 Body weight 78.24 kg DO Narayan Ball Work Phone: [facility] 09-17-2024 10:57-0400 Diastolic blood pressure 75 mm[Hg] DO Narayan Ball Work Phone: [facility] 09-17-2024 10:57-0400 Heart rate 128 /min DO Narayan Ball Work Phone: [facility] 09-17-2024 10:57-0400 Respiratory rate 20 /min DO Naraayn Ball Work Phone: [facility] 09-17-2024 10:57-0400 Systolic blood pressure 131 mm[Hg] DO Narayan Ball Work Phone: [facility] 06-24-2024 11:46-0400 Body height 167.64 cm DO Narayan Ball Work Phone: [facility] 06-24-2024 11:46-0400 Body mass index (BMI) [Ratio] 28.1 kg/m2 DO Narayan Ball Work Phone: [facility] 06-24-2024 11:46-0400 Body weight 79.15 kg DO Narayan Ball Work Phone: [facility] 06-24-2024 11:46-0400 Diastolic blood pressure 74 mm[Hg] DO Narayan Ball Work Phone: [facility] 06-24-2024 11:46-0400 Heart rate 114 /min DO Narayan Ball Work Phone: [facility] 06-24-2024 11:46-0400 Respiratory rate 12 /min DO Narayan Ball Work Phone: [facility] 06-24-2024 11:46-0400 Systolic blood pressure 110 mm[Hg] DO Narayan Ball Work Phone: [facility] 05-15-2024 06:52-0400 Body height 167.64 cm DO Narayan Ball Work Phone: [facility] 05-15-2024 06:52-0400 Body weight 79.37 kg DO Narayan Ball Work Phone: [facility] 05-07-2024 10:00-0400 Diastolic blood pressure 63 mm[Hg] Kashmir [facility]PM [facility] [employer] 05-07-2024 10:00-0400 Heart rate 89 /min Kashmir Consolo DPM [facility] [employer] 05-07-2024 10:00-0400 Respiratory rate 15 /min Kashmir Consolo DPM [facility] 05-07-2024 10:00-0400 SaO2% (BldA) [Mass fraction] 93 % Kashmir Kelly DPM Work Phone: [facility] [employer] 05-07-2024 10:00-0400 Systolic blood pressure 109 mm[Hg] Kashmir Kelly DPM Work Phone: [facility] [employer] 05-07-2024 09:21-0400 Body temperature 98.8 [degF] Kashmir Kelly DPM Work Phone: [facility] [employer] 05-07-2024 07:23-0400 Body mass index (BMI) [Ratio] 28.02 kg/m2 Kashmir Kelly DPM Work Phone: [facility] [employer] 05-07-2024 07:23-0400 Body weight 78.74 kg Kashmir Kelly DPM Work Phone: [facility] [employer] 05-01-2024 10:25-0400 Body height 167.6 cm [facility] [employer] 05-01-2024 10:25-0400 Body mass index (BMI) [Ratio] 28.73 kg/m2 [facility] [employer] 05-01-2024 10:25-0400 Body temperature 98.01 [degF] [facility] [employer] [facility] [employer] 05-01-2024 10:25-0400 Body weight 80.74 kg [facility] [employer] 05-01-2024 10:25-0400 Diastolic blood pressure 71 mm[Hg] [facility] [employer] 05-01-2024 10:25-0400 Heart rate 96 /min [facility] [employer] 05-01-2024 10:25-0400 Respiratory rate 18 /min [facility] [employer] 05-01-2024 10:25-0400 SaO2% (BldA) [Mass fraction] 96 % [facility] [employer] 05-01-2024 10:25-0400 Systolic blood pressure 109 mm[Hg] [facility] [employer] 03-12-2024 13:05-0400 Body height 167.64 cm [facility] 03-12-2024 13:05-0400 Body mass index (BMI) [Ratio] 27.4 kg/m2 [facility] 03-12-2024 13:05-0400 Body weight 77.11 kg [facility] 03-12-2024 13:05-0400 Diastolic blood pressure 62 mm[Hg] [facility] 03-12-2024 13:05-0400 Heart rate 136 /min [facility] 03-12-2024 13:05-0400 SaO2% (BldA) [Mass fraction] 98 % [facility] 03-12-2024 13:05-0400 Systolic blood pressure 116 mm[Hg] [facility] 01-23-2024 10:14-0500 Body height 167.64 cm [facility] 01-23-2024 10:14-0500 Body mass index (BMI) [Ratio] 27.8 kg/m2 [facility] 01-23-2024 10:14-0500 Body weight 78.18 kg [facility] 01-23-2024 10:14-0500 Diastolic blood pressure 67 mm[Hg] [facility] 01-23-2024 10:14-0500 Heart rate 71 /min [facility] 01-23-2024 10:14-0500 Respiratory rate 16 /min [facility] 01-23-2024 10:14-0500 Systolic blood pressure 94 mm[Hg] [facility] 09-20-2023 11:30-0400 Body height 167.64 cm Narayan Ball Other [facility] Other 09-20-2023 11:30-0400 Body mass index (BMI) [Ratio] 28.15 kg/m2 Narayan Ball Other [email or web address] [facility] Other 09-20-2023 11:30-0400 Body weight 79.11 kg Narayan Ball Other [email or web address] [facility] Other 09-20-2023 11:30-0400 Diastolic blood pressure 90 mm[Hg] Narayan Ball Other [employer] Other 09-20-2023 11:30-0400 Respiratory rate 16 /min Narayan Ball Other [employer] Other 09-20-2023 11:30-0400 Systolic blood pressure 132 mm[Hg] Narayan Ball Other [employer] Other 03-04-2023 12:00-0400 Body height 167.64 cm Narayan Ball Other [employer] Other 03-04-2023 12:00-0400 Body mass index (BMI) [Ratio] 28.34 kg/m2 Narayan Ball Other [employer] Other 03-04-2023 12:00-0400 Body weight 79.65 kg Narayan Ball Other [employer] Other 03-04-2023 12:00-0400 Diastolic blood pressure 74 mm[Hg] Narayan Ball Other [employer] Other 03-04-2023 12:00-0400 Respiratory rate 16 /min Narayan Ball Other [employer] Other 03-04-2023 12:00-0400 Systolic blood pressure 106 mm[Hg] Narayan Ball Other [employer] Other 02-08-2023 10:30-0400 Body height 167.64 cm Narayan Ball Other [employer] Other 02-08-2023 10:30-0400 Body mass index (BMI) [Ratio] 27.92 kg/m2 Narayan Ball Other [employer] Other 02-08-2023 10:30-0400 Body weight 78.47 kg Narayan Ball Other [facility] Other 02-08-2023 10:30-0400 Diastolic blood pressure 72 mm[Hg] Narayan Ball Other [employer] Other 02-08-2023 10:30-0400 Respiratory rate 16 /min Narayan Ball Other [facility] Other 02-08-2023 10:30-0400 Systolic blood pressure 108 mm[Hg] Narayan Ball Other [facility] Other 01-02-2023 13:15-0500 Diastolic blood pressure 82 mm[Hg] Phan SALAM [facility] 01-02-2023 13:15-0500 Heart rate 84 /min Phan SALAM [facility] 01-02-2023 13:15-0500 Respiratory rate 18 /min Phan SALAM [facility] 01-02-2023 13:15-0500 SaO2% (BldA) [Mass fraction] 94 % Phan SALAM [facility] 01-02-2023 13:15-0500 Systolic blood pressure 119 mm[Hg] Phan SALAM [facility] 01-02-2023 13:05-0500 Diastolic blood pressure 88 mm[Hg] Phan SALAM [facility] 01-02-2023 13:05-0500 Heart rate 95 /min Phan SALAM [facility] 01-02-2023 13:05-0500 Respiratory rate 18 /min Phan SALAM [facility] 01-02-2023 13:05-0500 SaO2% (BldA) [Mass fraction] 94 % Phan SALAM [facility] 01-02-2023 13:05-0500 Systolic blood pressure 126 mm[Hg] Phan SALAM [facility] 01-02-2023 13:00-0500 Diastolic blood pressure 77 mm[Hg] Phan SALAM [facility] 01-02-2023 13:00-0500 Heart rate 87 /min Phan SALAM [facility] 01-02-2023 13:00-0500 Respiratory rate 21 /min Phan SALAM [facility] 01-02-2023 13:00-0500 Systolic blood pressure 114 mm[Hg] Phan SALAM [facility] 01-02-2023 12:50-0500 Body temperature 98.42 [degF] Phan SALAM [facility] 01-02-2023 11:59-0500 Blood Pressure Location Phan SALAM [facility] 01-02-2023 11:59-0500 Body temperature 99.32 [degF] Phan SALAM [facility] 11-01-2022 12:12-0500 Blood Pressure Location Sue Kiera [facility] 11-01-2022 12:12-0500 Body temperature 97.88 [degF] Sue Kiera [facility] 11-01-2022 12:12-0500 Diastolic blood pressure 59 mm[Hg] Sue Kiera [facility] 11-01-2022 12:12-0500 Heart rate 89 /min Sue Kiera [facility] 11-01-2022 12:12-0500 Systolic blood pressure 93 mm[Hg] Sue Qureshi [facility] 06-25-2022 11:24-0400 Body mass index (BMI) [Ratio] 29.54 kg/m2 Narayan Ball DO [facility] [employer] 06-25-2022 11:24-0400 Body temperature 98.4 [degF] Narayan Ball DO Work Phone: [facility] [employer] 06-25-2022 11:24-0400 Body weight 83.01 kg Narayan Ball DO Work Phone: [facility] [employer] 06-25-2022 11:24-0400 Diastolic blood pressure 89 mm[Hg] Narayan Ball DO Work Phone: [facility] [employer] 06-25-2022 11:24-0400 Heart rate 105 /min Narayan Ball DO Work Phone: [facility] [employer] 06-25-2022 11:24-0400 Respiratory rate 18 /min Narayan Ball DO Work Phone: [facility] [employer] 06-25-2022 11:24-0400 SaO2% (BldA) [Mass fraction] 97 % Narayan Ball DO Work Phone: [employer] 06-25-2022 11:24-0400 Systolic blood pressure 148 mm[Hg] Narayan Ball DO Work Phone: [employer] 05-16-2022 19:21-0400 Diastolic blood pressure 88 mm[Hg] Narayan Ball DO Work Phone: [employer] 05-16-2022 19:21-0400 Heart rate 95 /min Narayan Ball DO Work Phone: [facility] [employer] 05-16-2022 19:21-0400 Respiratory rate 18 /min Narayan Ball DO Work Phone: [employer] 05-16-2022 19:21-0400 SaO2% (BldA) [Mass fraction] 97 % Narayan Ball DO Work Phone: [facility] [employer] 05-16-2022 19:21-0400 Systolic blood pressure 149 mm[Hg] Narayan Ball DO Work [facility]: [facility] 05-16-2022 15:46-0400 Body mass index (BMI) [Ratio] 29.54 kg/m2 Narayan Ball DO Work Phone: [facility] [employer] 05-16-2022 15:46-0400 Body temperature 99.3 [degF] Narayan Ball DO Work Phone: [facility] 05-16-2022 15:46-0400 Body weight 83.01 kg Narayan Ball DO Work Phone: [facility] 11-23-2021 09:02-0500 Body height 167.6 cm Kashmir Consolo DPM Work Phone: [employer] 11-23-2021 09:02-0500 Body mass index (BMI) [Ratio] 29.12 kg/m2 Kashmir Consolo DPM Work Phone: [employer] 11-23-2021 09:02-0500 Body temperature 97.9 [degF] Kashmir Consolo DPM Work Phone: [employer] 11-23-2021 09:02-0500 Body weight 81.83 kg Kashmir Consolo DPM Work Phone: [employer] 11-23-2021 09:02-0500 Diastolic blood pressure 84 mm[Hg] Kashmir Consolo DPM Work Phone: [employer] 11-23-2021 09:02-0500 Heart rate 102 /min Kashmir Consolo DPM Work Phone: [employer] 11-23-2021 09:02-0500 Respiratory rate 20 /min Kashmir Consolo DPM Work Phone: [employer] 11-23-2021 09:02-0500 SaO2% (BldA) [Mass fraction] 96 % Kashmir Kelly DPM Work Phone: [facility] [email or web address] 11-23-2021 09:02-0500 Systolic blood pressure 150 mm[Hg] Kashmir Kelly DPM Work Phone: [facility] 11-24-2020 10:30-0500 BP Diastolic 91 mm[Hg] Kashmir Kelly [facility] [place] 11-24-2020 10:30-0500 BP Systolic 145 mm[Hg] Kashmir Kelly [facility] [place] 11-24-2020 10:30-0500 Pulse (Heart Rate) 78 /min Kashmir Kelly [employer]- [place] 11-24-2020 10:30-0500 Pulse Oximetry 91 % Kashmir Kelly [employer] [facility] [place] 11-24-2020 10:30-0500 Respiratory Rate 18 /min [facility] [place] 11-24-2020 09:42-0500 Body Temperature 98.1 [degF] [facility] [place] 11-24-2020 08:21-0500 BMI (Body Mass Index) 30.62 kg/m2 [facility] [place] 11-24-2020 08:21-0500 Body weight 83.46 kg Kashmir [employer] [place] 11-24-2020 08:21-0500 Height 165.1 cm Kashmir Kelly [employer] [facility] [place] 11-16-2020 08:02-0500 BMI (Body Mass Index) 30.67 kg/m2 [facility] [place] 11-16-2020 08:02-0500 Body Temperature 97.39 [degF] [facility] [place] 11-16-2020 08:02-0500 Body weight 83.6 kg Kashmir Kelly [facility] [place] 11-16-2020 08:02-0500 BP Diastolic 92 mm[Hg] Kashmir [facility] [place] 11-16-2020 08:02-0500 BP Systolic 133 mm[Hg] Kashmir [facility] [place] 11-16-2020 08:02-0500 Height 165.1 cm Kashmir Fenton [facility] , [place] 11-16-2020 08:02-0500 Pulse (Heart Rate) 98 /min Kashmir Fenton [facility], [place] 11-16-2020 08:02-0500 Pulse Oximetry 95 % Kashmir Fenton [facility] , [place] 11-16-2020 08:02-0500 Respiratory Rate 22 /min Kashmir Fenton [facility] Encounters Encounter Date Encounter Type Care Provider Facility Start: 09-17-2024 End: 09-17-2024 ambulatory DO Narayan Ball Work Phone: [facility] Work Phone: Start: 09-17-2024 End: 09-17-2024 Patient encounter procedure DO Narayan Ball Work Phone: [facility] Work Phone: Start: 09-02-2024 Non-patient / Non-visit DO Chapin Gagnon Work Phone[facility] Work Phone: Start: 09-01-2024 Patient encounter procedure DO Narayan Gagnon Work Phone: [facility] Start: 07-20-2024 End: 07-20-2024 ambulatory COCO ARGUELLO Not Available Start: 07-02-2024 End: 07-02-2024 Patient encounter procedure DO Narayan Ball Work Phone: [facility] [place] Work Phone: Start: 07-02-2024 End: 07-02-2024 ambulatory DO Narayan Ball Work Phone: [facility] Work Phone: Start: 06-24-2024 End: 06-24-2024 ambulatory DO Narayan Ball Work Phone: [facility] Work Phone: Start: 06-24-2024 End: 06-24-2024 Patient encounter procedure DO Narayan Ball Work Phone: [facility] Work Phone: Start: 06-11-2024 Non-patient / Non-visit DO Chapin Gagnon Work Phone: [facility] Work Phone: Start: 06-11-2024 End: 06-11-2024 ambulatory JU HOFFMANN Not Available Start: 05-15-2024 End: 05-15-2024 Patient encounter procedure DO Narayan Gagnon Work Phone: [facility] [place] Work Phone: Start: 05-15-2024 End: 05-15-2024 ambulatory DO Narayan Gagnon Work Phone: [facility] Work Phone: Start: 05-07-2024 End: 05-07-2024 ambulatory [facility]ASH[facility]IR [facility] Start: 05-07-2024 End: 05-07-2024 Subsequent hospital visit by physician Kashmir Kelly DPM Work Phone: [facility] Start: 05-01-2024 End: 05-05-2024 ambulatory NARAYAN [facility] Start: 05-01-2024 End: 05-05-2024 Subsequent hospital visit by physician Mth Pre Admit Test Rm [facility] PRE ADMIT Start: 04-16-2024 End: 04-16-2024 ambulatory JU HOFFMANN Not Available Start: 04-13-2024 Non-patient / Non-visit DO Chapin Gagnon Work Phone: [facility] Work Phone: Start: 03-12-2024 End: 03-12-2024 ambulatory [facility] Work Phone: Start: 03-12-2024 End: 03-12-2024 Patient encounter procedure [facility] Work Phone: Start: 01-23-2024 End: 01-23-2024 ambulatory Narayan Gagnon Other [employer] Other Start: 01-23-2024 Telephone encounter Narayan Gagnon [facility] Start: 01-23-2024 End: 01-23-2024 Patient encounter procedure [facility] Physician [facility] Work Phone: Start: 01-21-2024 Non-patient / Non-visit [facility] [employer] Work Phone: Start: 01-03-2024 End: 01-03-2024 ambulatory Narayan Gagnon Other [employer] Other Start: 01-03-2024 Telephone encounter Narayan Gagnon [facility] Start: 12-23-2023 End: 12-23-2023 ambulatory Narayan Gagnon Other [employer] Other Start: 12-23-2023 Telephone encounter Narayan Gagnon [facility] Start: 12-18-2023 End: 12-18-2023 ambulatory Narayan Gagnon Other [employer] Other Start: 12-18-2023 Telephone encounter Narayan Gagnon [facility] Start: 12-09-2023 End: 12-09-2023 ambulatory Narayan Gagnon Other [employer] Other Start: 12-09-2023 Telephone encounter Narayan Gagnon [facility] Start: 12-03-2023 End: 12-03-2023 ambulatory MALINA BALLARD Not Available Start: 11-13-2023 End: 11-13-2023 ambulatory Narayan Gagnon Other [employer] Other Start: 11-13-2023 Telephone encounter Narayan Gagnon [facility] Start: 09-25-2023 End: 09-25-2023 ambulatory Narayan Gagnon Other [employer] Other Start: 09-25-2023 Telephone encounter Narayan Gagnon [facility] Start: 09-20-2023 End: 09-20-2023 ambulatory Narayan Gagnon Other [employer] Other Start: 09-20-2023 Patient encounter procedure Narayan Gagnon [facility] Start: 09-05-2023 End: 09-05-2023 ambulatory Narayan Gagnon Other [employer] Other Start: 09-05-2023 Telephone encounter Narayan Gagnon [facility] Start: 09-04-2023 End: 09-04-2023 ambulatory Narayan Gagnon Other [employer] Other Start: 09-04-2023 Telephone encounter Narayan Gagnon [facility] Start: 09-03-2023 End: 09-03-2023 ambulatory Narayan Gagnon Other [employer] Other Start: 09-03-2023 Telephone encounter Narayan Gagnon [facility] Start: 08-26-2023 End: 08-26-2023 ambulatory Narayan Gagnon Other [employer] Other Start: 08-26-2023 Telephone encounter Narayan Gagnon [facility] [facility] Start: 08-20-2023 End: 08-20-2023 ambulatory Narayan Gagnon Other [employer] Other Start: 08-20-2023 Telephone encounter Narayan Gagnon [facility] Start: 07-16-2023 End: 07-16-2023 ambulatory Narayan Gagnon Other [employer] Other Start: 07-16-2023 Telephone encounter Narayan Gagnon [facility] Start: 07-09-2023 End: 07-09-2023 ambulatory Narayan Gagnon Other [employer] Other Start: 07-09-2023 Telephone encounter Narayan Gagnon [facility] Start: 07-08-2023 End: 07-08-2023 ambulatory Narayan Gagnon Other [employer] Other Start: 07-08-2023 Telephone encounter Narayan Gagnon [facility] Start: 05-01-2023 End: 05-01-2023 ambulatory Narayan Gagnon Other [employer] Other Start: 05-01-2023 Telephone encounter Narayan Gagnon [facility] Start: 03-19-2023 End: 03-19-2023 ambulatory Narayan Gagnon Other [employer] Other Start: 03-19-2023 Telephone encounter Narayan Gagnon [facility] Start: 03-18-2023 End: 03-18-2023 ambulatory Narayan Gagnon Other [employer] Other Start: 03-18-2023 Telephone encounter Narayan Gagnon [facility] Start: 03-14-2023 End: 03-15-[address] NARAYAN GAGNON Facility: Start: 03-07-2023 End: 03-07-2023 ambulatory Narayan Gagnon Other [employer] Other Start: 03-07-2023 Telephone encounter Narayan Gagnon [facility] Start: 03-04-2023 End: 03-04-2023 ambulatory Narayan Gagnon Other [employer] Other Start: 03-04-2023 Office outpatient vi sit 25 minutes Narayan Gagnon [facility] Start: 02-19-2023 End: 02-19-2023 ambulatory Narayan Gagnon Other [employer] Other Start: 02-19-2023 Telephone encounter Narayan Gagnon [facility] Start: 02-15-2023 End: 02-15-2023 ambulatory Narayan Gagnon Other [employer] Other Start: 02-15-2023 Telephone encounter Narayan Gagnon [facility] Start: 02-13-2023 ambulatory [facility]: H1 Start: 02-11-2023 End: 02-11-2023 ambulatory Narayan Gagnon Other [employer] Other Start: 02-11-2023 Telephone encounter Narayan Gagnon [facility] Start: 02-08-2023 Office outpatient vi sit 25 minutes Narayan Gagnon [facility] Start: 02-08-2023 Telephone encounter Narayan Gagnon FP [facility] Start: 02-08-2023 End: 02-09-[address] STACY LAWSON [facility] Other Start: 01-02-2023 End: 01-03-2023 ambulatory Sylvester FITZPATRICK Facility[facility] Start: 01-02-2023 End: 01-02-2023 Patient encounter procedure Sylvester FITZPATRICK [facility] Start: 12-24-2022 End: 12-25-2022 ambulatory Sue Qureshi Facility[facility] Start: 12-20-2022 End: 03-01-[address] MALINA BALLARD Facility: Start: 11-01-2022 End: 11-02-2022 ambulatory Sue Qureshi [facility] Start: 11-01-2022 End: 11-02-2022 [facility]ulatory [facility] Start: 11-01-2022 End: 11-01-2022 Patient encounter procedure Sue Qureshi [facility] Start: 11-01-2022 End: 11-02-[address] NARAYAN GAGNON Facility: Start: 09-28-2022 ambulatory Sue Qureshi Facility :[facility] Start: 09-23-2022 Pre-procedure evalua tion check Narayan Gagnon Other [employer] Other Start: 09-20-2022 End: 09-21-2022 ambulatory Lesly Baeza Facility:[facility] Start: 09-20-2022 End: 09-20-2022 Patient encounter procedure Lesly Baeza [facility] Start: 06-25-2022 End: 06-25-2022 Emergency department patient visit Narayan Gagnon DO Work Phone: [facility] ED Comment on above: Acute upper respirat ory infection (Primary Dx) Start: 06-15-2022 End: 06-16-[address] NARAYAN GAGNON Facility: Start: 05-17-2022 End: 05-18-2022 Evaluation and management of inpatient VAHID ROKAY [facility] Start: 05-16-2022 End: 05-17-2022 Emergency department patient visit Narayan Gagnon Work Phone: [facility] ED Comment on above: Suicidal ideation (P rimary Dx); Homicidal ideations Start: 01-26-2022 End: 01-27-2022 ambulatory Malina Ballard Facility[facility] Start: 01-22-2022 End: 01-22-2022 ambulatory Malina Ballard Facility:[facility] Start: 11-23-2021 End: 11-27-2021 Subsequent hospital visit by physician Kashmir Kelly DPM Work Phone: [facility] Start: 11-24-2020 End: 11-24-2020 Subsequent hospital visit by physician Kashmir Kelly Work Phone: [facility] Start: 11-17-2020 End: 11-21-2020 Subsequent hospital visit by physician [facility] Covid19 Pat Screening Schedule [facility] PRE [facility] Comment on above: Preoperative testing Start: 11-17-2020 End: 11-19-2020 Subsequent hospital visit by physician [facility] Mri Scanner [facility] MRI Comment on above: Nonintractable heada cristal, unspecified chronicity pattern, unspecified headache type; 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; Alternating exotropia; Diplopia; Dysfunction of both inferior oblique muscles Start: 11-16-2020 End: 11-20-2020 Subsequent hospital visit by physician Kashmir Kelly Work Phone: [facility] PRE [facility] Start: 03-04-2018 End: 03-05-2018 Ambulatory DEFAULT PHYSICIAN Facility:[facility] Start: 02-28-2018 End: 03-01-2018 Ambulatory DEFAULT PHYSICIAN Facility:[facility] Procedures Date Procedure Procedure Detail Performing Clinician Start: 07-02-2024 CT angiography of head DO Narayan Gagnon Work Phone: Start: 07-02-2024 CT angiography of neck vessels DO Goldie in [employer] Work Phone: Start: 05-15-2024 MRI of head DO Narayan Gagnon Work Phone: Start: 05-07-2024 GLUCOSE, WHOLE BLOOD Kashmir Lombardi Consolo DPM Work Phone: Start: 05-01-2024 Basic metabolic panel calcium total Kashmir Harjit Consolo DPM Work Phone: Start: 05-01-2024 Ecg routine ecg w/least 12 lds i&r only Kashmir Lombardi Consolo DPM Work Phone: Start: 01-02-2023 Colonoscopy Phan SALAM Start: 01-02-2023 Esophagogastroduodenoscopy Phan SALAM Start: 06-25-2022 Radiologic exam chest single view Atul Jose Alfredo Aguilar PA-C Work Phone: Start: 06-25-2022 COVID-19, RAPID Ebony J Rosado DO Work Phone: Start: 05-16-2022 Radiologic exam chest single view Sona Pepper DIGITAL ACCOUNT EXECUTIVE - INFECTION CONTROL NURSE Work Phone: Start: 05-16-2022 Assay of acetaminophen Abi Pepper DIGITAL ACCOUNT EXECUTIVE - INFECTION CONTROL NURSE Work Phone: Start: 05-16-2022 Assay of ethanol Abi Pepper DIGITAL ACCOUNT EXECUTIVE - INFECTION CONTROL NURSE Work Phone: Start: 05-16-2022 Assay of salicylate Abi Pepper DIGITAL ACCOUNT EXECUTIVE - INFECTION CONTROL NURSE Work Phone: Start: 05-16-2022 Comprehensive metabolic panel Abi Pepper DIGITAL ACCOUNT EXECUTIVE - INFECTION CONTROL NURSE Work Phone: Start: 05-16-2022 Drug tst prsmv instrmnt chem analyzers pr date Abi Pepper DIGITAL ACCOUNT EXECUTIVE - INFECTION CONTROL NURSE Work Phone: Start: 05-16-2022 COVID-19, RAPID Abi Pepper DIGITAL ACCOUNT EXECUTIVE - INFECTION CONTROL NURSE Work Phone: Start: 05-16-2022 Ecg routine ecg w/least 12 lds i&r only Abi Pepper DIGITAL ACCOUNT EXECUTIVE - INFECTION CONTROL NURSE Work Phone: Start: 01-22-2022 Total knee replacement Lesly Baeza Start: 11-23-2021 Ecg routine ecg w/least 12 lds i&r only Kashmir Lombardi Consolo DPM Work Phone: Start: 11-23-2021 Basic metabolic panel calcium total Benj gilman Ball DO Work Phone: Start: 11-23-2021 Urnls dip stick/tablet reagent auto microscopy Narayan Gagnon DO Work Phone: Start: 11-24-2020 GLUCOSE, WHOLE BLOOD Kashmir W Consolo Work Phone: Start: 11-17-2020 COVID-19 Paoloiazbella Jay Work Phone: Start: 11-17-2020 Mri brain brain stem w/o w/contrast material Bipin Quintana Work Phone: Start: 11-16-2020 Ecg routine ecg w/least 12 lds i&r only Kashmir W Consolo Work Phone: Start: 11-16-2020 EKG REPORT Hpf Scanning Start: 11-16-2020 Basic metabolic panel calcium total Kashmir W Consolo Work Phone: Start: 11-16-2020 Blood count complete automated Kashmir W Co nsolo Work Phone: Start: 07-28-2020 Hydrocelectomy Lesly Baeza Start: 02-25-2018 Preoperative cardiovascular examination Narayan Gagnon [...] vaccine (4 - Td or Tdap) [facility] Start: 05-01-2025 GFR test (Diabetes, CKD 3-4, OR last GFR 15-59) GFR test (Diabetes, CKD 3-4, OR last GFR 15-59) [facility] Start: 05-07-2024 End: 05-07-2024 Admission to same day surgery center 05/07/2024 8:30 AM EDT - 05/07/2024 9:15 AM EDT Surgery [facility] OR [address] [id number] Kashmir Kelly, DPM [address] [place] [address] NAILBED EXCISION MATRIXECTOMY- DIGITS 1,4,5 [facility] OR Comment on above: NAILBED EXCISION MAT RIXECTOMY- DIGITS 1,4,5 Start: 05-07-2024 End: 05-07-2024 Anesthesia consultation 05/07/2024 8:30 AM EDT Anesthesia Event [facility] OR [address] [place] [address] Janna Love, DIGITAL ACCOUNT EXECUTIVE - SHELL MOLD BONDER [address] [place] [address] [facility] OR Start: 05-07-2024 End: 05-07-2024 Excision nail matrix permanent removal [facility] Start: 05-07-2024 Subsequent hospital visit by physician 05/07/2024 8:30 AM EDT Hospital Encounter [facility] [place] [address] [place] [address] Kashmir Kelly, MARYANNE [address] [place] [address] [facility] Start: 2024 DTaP/Tdap/Td vaccine (2 - Td or Tdap) DTaP/Tdap/Td vaccine (2 - Td or Tdap) [facility] Start: 2024 DTaP/Tdap/Td vaccine (2 - Td) DTaP/Tdap/Td vaccine (2 - Td) [place] Start: 10-21-2023 Annual Wellness Visi t (Medicare) Annual Wellness Visit (Medicare) [facility] Start: 07-26-2023 COVID-19 Vaccine (2022- season) COVID-19 Vaccine ( season) [facility] Start: 2023 Shingles vaccine (1 of 2) Shingles vaccine (1 of 2) [facility] Start: 11-23-2022 Creatinine measurement Creatinine mo nitoring [facility] Start: 11-23-2022 Hemoglobin A1c measurement A1C test (Diabetic or Prediabetic) [facility] Start: 11-23-2022 Potassium monitoring Potassium monit oring [facility] Start: 07-26-2022 Influenza vaccination [facility] Start: 02-21-2022 Hemoglobin A1c measurement A1C test (Diabetic or Prediabetic) [facility] Start: 11-30-2021 End: 11-30-2021 Admission to same day surgery center 11/30/2021 Surgery IP Unit Kashmir Kelly, MARYANNE [address] [place] [address] NAILBED EXCISION MATRIXECTOMY-HALLUX [facility] OR Comment on above: NAILBED EXCISION MAT RIXECTOMY-HALLUX Start: 11-30-2021 End: 11-30-2021 Excision nail matrix permanent removal NAILBED EXCISION MATRIXECTOMY CHRONIC INGROWNS 11/30/2021 8:00 AM EST [facility] Start: 11-30-2021 Subsequent hospital visit by physician 11/30/2021 Hospital Encounter IP Unit Kashmir Kelly, DPM [address] [place] [address] [facility] Start: 11-16-2021 Creatinine measurement Creatinine mo nitoring [place] Start: 11-16-2021 Potassium monitoring Potassium monit oring [place] Start: 10-01-2021 COVID-19 Vaccine (3 - Booster for Pfizer series) COVID-19 Vaccine (3 - Booster for Pfizer series) [facility] Start: 08-31-2021 COVID-19 Vaccine (3 - Booster for Pfizer series) COVID-19 Vaccine (3 - Booster for Pfizer series) [facility] Start: 07-26-2021 Influenza vaccination Flu vaccine (# 1) [facility] Start: 11-24-2020 End: 11-24-2020 [facility] Comment on above: FOOT LESION BIOPSY E XCISION, PLANTAR Start: 11-17-2020 Annual Wellness Visi t (AWV) Annual Wellness Visit (AWV) [place] Start: 07-26-2020 Influenza vaccination Flu vaccine (# 1) [place] Start: 2018 Screening for malign ant neoplasm of colon [facility] Start: 2013 Diabetes screen Diabetes screen [place], [place] Start: 2008 Diabetes screen Diabetes screen [facility] Start: 08-06-2002 Pneumococcal 0-64 ye ars Vaccine (2 of 2 - PCV) Pneumococcal 0-64 years Vaccine (2 of 2 - PCV) [facility] Start: 1992 Hepatitis B vaccine (1 of 3 - Risk 3-dose series) Hepatitis B vaccine (1 of 3 - Risk 3-dose series) [facility] Start: 1991 Diabetic retinal exam Diabetic retin al exam [facility] Start: 1991 Glaucoma screening Diabetic retinal exam [facility] Start: 1991 Hepatitis C screening Hepatitis C sc [facility] [employer] [facility] Start: 1991 Urine screening for protein [facility] [email or web address] Start: 1988 HIV screening HIV screen [facility] Start: 1985 Depression Monitoring Depression Mon elidia [facility] [employer] Start: 1985 Depression Screen Depression Screen [facility] Start: 1983 Diabetic foot examination Diabetic foot exam [facility] Start: 1983 Lipid panel [facility] Start: 1979 Pneumococcal 0-64 ye ars Vaccine (1 - PCV) Pneumococcal 0-64 years Vaccine (1 - PCV) [facility] [employer] Start: 1973 Hepatitis B vaccine (1 of 3 - 3-dose series) Hepatitis B vaccine (1 of 3 - 3-dose series) [facility] [employer] Start: 1973 Hepatitis C screening Hepatitis C sc legacy [facility] End: 11-23-2021 Culture, Urine [facility] [email or web address] Work Phone: Comment on above: Once for 1 Occurrenc es starting 11/23/2021 until 11/23/2021 End: 05-07-2024 Glucose [Mass/volume] in Serum or Plasma POCT Glucose Point of Care Testing Routine One Time for 1 Occurrences starting 05/07/2024 until 05/07/2024 [facility] [employer] [facility] Work Phone: Comment on above: One Time for 1 Occur rences starting 05/07/2024 until 05/07/2024 End: 11-24-2020 POCT Glucose POCT Glucose Point of Care Testing STAT One Time for 1 Occurrences starting 11/24/2020 until 11/24/2020 [email or web address] [employer] Comment on above: One Time for 1 Occur rences starting 11/24/2020 until 11/24/2020 Surgical Pathology Surgical Path ology Lab Routine Release Upon Ordering for 1 Occurrences starting 11/24/2020 [email or web address] [place] Comment on above: Release Upon Orderin g for 1 Occurrences starting 11/24/2020 [facility] Immunizations Immunization Date Immunization Notes Care Provider Fa martha 09-20-2023 influenza, injectabl e, quadrivalent, preservative free Narayan Gagnon Other [facility] 09-20-2022 influenza virus vaccine, split virus (incl. purified surface antigen) Narayan Gagnon Other [employer] Other 09-20-2022 influenza virus vaccine, unspecified formulation Sue Qureshi [facility] 03-31-2021 SARS-CoV-2 (COVID-19 ) mRNA BNT-162b2 vax Sue Qureshi [facility] 12-17-2020 SARS-CoV-2 (COVID-19 ) mRNA BNT-162b2 vax Sue Qureshi [facility] Comment on above: Result Comment: 2021: [id number] 08-26-2020 influenza virus vaccine, split virus (incl. purified surface antigen) Narayan Gagnon Other [facility] Other 08-26-2020 influenza virus vaccine, unspecified formulation [facility] 09-07-2019 influenza virus vaccine, unspecified formulation Sue Qureshi [facility] 09-01-2019 influenza virus vaccine, split virus (incl. purified surface antigen) Narayan Gagnon Other [facility] Other 09-01-2019 influenza virus vaccine, unspecified formulation [facility] 08-15-2018 influenza virus vaccine, split virus (incl. purified surface antigen) Narayan Gagnon Other [facility] Other 08-15-2018 influenza virus vaccine, unspecified formulation [facility] 08-13-2018 influenza virus vaccine, split virus (incl. purified surface antigen) Narayan Gagnon Other [facility] Other 08-13-2018 influenza virus vaccine, unspecified formulation Sue Qureshi [facility] 09-03-2016 influenza virus vaccine, unspecified formulation Sue Qureshi [facility] 09-03-2016 tetanus and diphther ia toxoids, adsorbed, preservative free, for adult use (5 Lf of tetanus toxoid and 2 Lf of diphtheria toxoid) Narayan Gagnon Other [facility] 09-14-2014 tetanus and diphther ia toxoids, adsorbed, preservative free, for adult use (5 Lf of tetanus toxoid and 2 Lf of diphtheria toxoid) Narayan [employer] Other [facility] 2014 tetanus toxoid, redu buddy diphtheria toxoid, and acellular pertussis vaccine, adsorbed Sue Qureshi [facility] 09-17-2013 tetanus and diphther ia toxoids, adsorbed, preservative free, for adult use (5 Lf of tetanus toxoid and 2 Lf of diphtheria toxoid) Narayan Gagnon Other [facility] 08-06-2001 pneumococcal polysaccharide vaccine, 23 valent Narayan Gagnon Other [facility] Payers Date Payer Category Payer Self-pay [id number] 1975 Unknown [id number] 1975 Unknown [id number] 2.16.840.1.637916.3.579.2. 1973 Unknown [id number] 2.16.840.1.684159.3.579.2. 1973 Unknown [id number] 2.16.840.1.860350.3.579.2.72 1973 Unknown [id number] 2.16.840.1.782918.3.579.2.72 1973 Unknown [id number] 2.16.840.1.236867.3.579.2.727 1973 Unknown [id number] 2.16.840.1.213128.3.579.2.727 1973 Unknown [id number] 2.16.840.1.911856.3.579.2.727 1973 Unknown [id number] 2.16.840.1.951149.3.579.2.727 1973 Unknown [id number] 2.16.840.1.315792.3.579.2.593 1973 Unknown [id number] 2.16840.1.501305.3.579.2.593 1973 Unknown [id number] 2.16840.1.761625.3.579.2.593 1973 Unknown [id number] 2.16840.1.238468.3.579.2.593 1973 Unknown [id number] 2.16840.1.439202.3.579.2.593 1973 Unknown [id number] 2.16840.1.514828.3.579.2.593 1973 Unknown [id number] 2.16840.1.922490.3.579.2.593 1973 Unknown [id number] 2.16840.1.856570.3.579.2.593 1973 Unknown [id number] 2.16840.1.267860.3.579.2.173 1973 Unknown [id number] 2.16840.1.970035.3.579.2.173 1973 Unknown [id number] 2.16840.1.029923.3.579.2.1259 1973 Unknown [id number] 2.16840.1.663569.3.579.2.1259 1973 Unknown [id number] 2.16840.1.463618.3.579.2.1259 1973 Unknown [id number] 2.16.840.1.300421.3.579.2.1259 1973 Unknown [id number] 2.16.840.1.532610.3.579.2.1259 1961 Medicaid [id number] [id number].3.6786 [id number] 1961 Medicare [id number] [id number] [id number] Medicare Medicare Psych-IP Part A [id number] Unknown Unknown [id number] 2.16.840.1.114704.3.579.2.531 Unknown [id number] 2.16.840.1.976548.3.579.2.531 Social History Date Type Detail Facility Start: 07-30-2014 End: 11-16-2020 Tobacco smoking status NHIS Former smoker [place] Start: 07-30-2014 End: 11-16-2020 Tobacco use and exposure Never used [place], [place] Start: 11-16-2020 End: 05-07-2024 Alcohol intake Current non-drinker of alcohol (finding) [place], [place] Start: 1975 Sex Assigned At Not on file [place] Start: 05-06-2022 End: 05-16-2022 Exposure to SARS-CoV-2 (event) Not sure [place] Start: 05-17-2022 End: 05-18-2022 History SDOH Alcohol Frequency 1 [employer] Phone: History of tobacco use Current smoker [facility] [employer] Phone: Start: 05-18-2022 History SDOH Alcohol Std Drinks 98 BON [employer] Phone: Start: 06-15-2022 End: 06-25-2022 Exposure to SARS-CoV-2 (event) Yes [employer] Work Phone: Start: 04-30-2018 End: 10-28-2020 Tobacco smoking status Never smoked tobacco (finding) [facility] Start: 05-18-2022 End: 05-01-2024 Sex Assigned At Male [facility] Tobacco smoking status Never [facility] Start: 1975 Sex Assigned At Male [facility] Start: 05-18-2022 End: 05-01-2024 History of Social function [employer] How often to you hav e a drink containing alcohol? Never [employer] Medical Equipment Procedure Code Equipment Code Equipment Origin al Text Equipment Identifier Dates KNEE TOTAL ARTHROPLASTY Malina Ballard DO 01/22/22 Non Biological Knee R [id number] FDA Start: 01-22-2022 Pen Kimberly 31G X [address] art: 07-16-2023 [...] 04-13-2024 Lancets (Trueplu s Lancets) 33 gauge [facility] Start: 01-23-2024 End: 04-08-2024 Functional Status Date Assessment Result Facility 01-02-2023 Functional Status N/A [facility] 11-01-2022 Functional Status N/A [facility] Clinical Notes 11-23-2021 to 05-07-2024 Ju Paulino RN - 05/07/2024 10:03 AM EDTDischarge Cordelia Schneider RN - 05/01/2024 10:00 AM Cordelia Greer [...] adult. Yes documented in this encounter [facility] 05-07-2024 Hospital Discharg e instructions Ju Paulino RN - [...] for 14 days. documented in this encounter [facility] 05-01-2024 History of Presen t illness Narrative Pt's mother instructed on the pre-operative, intra-operative, and post-operative process. Medication instructions and pre operative instruction sheet reviewed. Pt to be NPO after midnight and may take Verapamil, Divalproex and Clonazepam with a small sip of water AM of procedure. CHG skin prep instructions reviewed.EKG completed. [facility] Preadmission Testing Name: Hari Thornton : 1975 Patient (home) [phone] (work) Procedure Right foot matriectomies Date of [...] PAT? Yes documented in this encounter [facility] 11-13-2023 Evaluation note Encounter Date Diagnosis Assessment Notes Oct, Irritable bowel syndrome with diarrhea (ICD-10 - K58.0) [facility] Other 10-27-2023 Evaluation note* Encounter Date Diagnosis [...] use, the patient reduces the risk for WI, CVA, HTN, cardiac dysrhythmias and sudden cardiac [...] specific antigen) (ICD-10 - Z12.5) Yearly PSA [facility] Other 10-12-2023 Evaluation note* Encounter Date Diagnosis Assessment Notes Treatment Notes Treatment Clinical Notes Aug, Hyperlipidemia, mixed (ICD-10 - E78.2) Aug, Essential hypertension (ICD-10 - I10) [facility] Other 10-10-2023 Evaluation note* Encounter Date Diagnosis Assessment Notes Treatment Notes Treatment Clinical Notes Aug, Essential hypertension (ICD-10 - I10) Aug, Hyperlipidemia, mixed (ICD-10 - E78.2) [facility] Other 08-15-2023 Evaluation note* Encounter Date Diagnosis Assessment Notes Treatment Notes Treatment Clinical Notes Jun, Type 2 diabetes mellitus with hyperglycemia, without long-term current use of insulin (ICD-10 - E11.65) [facility] Other 04-25-2023 Evaluation note* Encounter Date Diagnosis Assessment Notes Treatment Notes Treatment Clinical Notes Feb, Type 2 diabetes mellitus with hyperglycemia, without long-term current use of insulin (ICD-10 - E11.65) [facility] Other 04-10-2023 Evaluation note* Encounter Date Diagnosis [...] use, the patient reduces the risk for WI, CVA, HTN, cardiac dysrhythmias and sudden cardiac [...] sun, spicy foods. Begin [employer] f/u Dermatology [facility] Other 03-28-2023 Evaluation note* Encounter Date Diagnosis Assessment Notes Treatment Notes Treatment Clinical Notes Jan, Essential hypertension (ICD-10 - I10) Jan, Hyperlipidemia, mixed (ICD-10 - E78.2) [facility] Other 03-28-2023 Evaluation note* Encounter Date Diagnosis Assessment Notes Treatment Notes Treatment Clinical Notes Jan, Essential hypertension (ICD-10 - I10) [facility] Other 2023 Evaluation note* Encounter Date Diagnosis Assessment Notes Treatment Notes Treatment Clinical Notes Jan, Essential hypertension (ICD-10 - I10) Jan, Hyperlipidemia, mixed (ICD-10 - E78.2) [facility] Other 03-17-2023 Evaluation note* Encounter Date Diagnosis Assessment Notes Treatment Notes Treatment Clinical Notes Jan, Chronic fatigue (ICD-10 - R53.82) [facility] Other 03-17-2023 Evaluation note* Encounter Date Diagnosis [...] of GLP -1 due to adverse effects. 17 Mar, 2023 Intermittent palpitations (ICD-10 - R00.2) Avoid stimulants, [...] of fatigue, depression etc as well as retirement benefit w/ reducing risk for AF, CVA, [place] Jan, Moderate episode of recurrent major depressive disorder (ICD-10 - F33.1) Healthy diet, increase activity, consistent sleep routine. f/u Psych Jan, Diarrhea, unspecified type (ICD-10 - R19.7) Likely diet and medication related. Await labs to r/o hepatic, renal involvement. May need to taper GLP-1 Avoid milk, juices and sauce. Increase yogurt, bananas and cheese [facility] Other 02-09-2023 Note [id number]#1.00CD:[address] [place] [address] 01-02-2023 NoteEndoscopy Care After Procedure Please read the instructions outlined below and refer to this sheet in the next few weeks. These discharge instructions provide you with general information on caring for yourself [facility] Your doctor may also give you [...] Document Re-Released: 05/05/2007 ExitCare? Patient Information ?2009 [employer]. Colonoscopy Care After Surgery Please read the instructions outlined below and refer to this sheet in the next few weeks. These discharge instructions provide you with general information on caring [facility] Your doctor may also give you [...] including vitamins, herbs, eye drops, creams, and xbhs-jiw-aceipxw medicines. ? Any problems you or family members have had with anesthetic medicines. ? Any blood disorders you have. ? Any surgeries you have had. ? Any medical conditions you have. ? (more content not included)...[facility]02-08-2023 Hospital Discharge instructions Patient Education 01/02/2023 12:59:37 Endoscopy, Care After Procedure [facility] ([facility]) Endoscopy Care After Procedure Please read the instructions outlined below and refer to this sheet in the next few weeks. These discharge instructions provide you with general information on caring for [facility]. Your doctor may also give you [...] blood. Document Released: 06/25/2005 Document Re-Released: 05/05/2007 [employer] Patient Information [employer]. 01/02/2023 12:59:37 Esophageal Dilatation Esophageal Dilatation Esophageal [...] including vitamins, herbs, eye drops, creams, and pqwf-psm-njkrquv medicines. Any problems you or family members [...] home. Follow these instructions at home: Take itno-ggc-rdjzlou and prescription medicines only as told by [...] 01/02/2007 Document Revised: 10/24/2018 Document Reviewed: 09/16/2018 [employer] Patient Education 2020 ViS. 01/02/2023 12:59:37 Colonoscopy, Care After Surgery Salam [...] worse throughout the day. 01/02/2023 12:59:37 Diverticulitis, Vexk-xd-Mudv Diverticulitis Diverticulitis is when small pockets in your large intestine (colon) get infected or swollen. This causes stomach pain and watery poop (diarrhea). These pouches are called diverticula. They form in people who have a condition called diverticulosis. Follow these instructions at home: Medicines Take vywp-fql-pbfclru and prescription medicines only as told by [...] 04/29/2009 Document Revised: 10/24/2018 Document Reviewed: 11/28/2017 [employer] Patient Education 2020 ViS. 01/02/2023 12:59:37 Colon Polyps Colon Polyps Polyps [...] 08/07/2005 Document Revised: 02/26/2019 Document Reviewed: 02/26/2019 [employer] Patient Education 2020 [employer] 01/02/2023 12:59:37 Hemorrhoids, Jheo-hb-Znxx Hemorrhoids Hemorrhoids are swollen veins that may [...] 3 times a day. General instructions Take yzuo-epn-jwvcrad and prescription medicines only as told by [...] 08/20/2009 Document Revised: 11/19/2019 Document Reviewed: 04/02/2019 [employer] Patient Education 2020 ViS. Follow Up Care 11/01/2022 13:05:57 With:Sylvester FITZPATRICK Address: [address] [place] [address] Business (1) When: Unknown Comments:Call for any problems. Office will call for follow up appt [facility]02-08-2023 Evaluation + Plan noteExtracted from: Title:ANES Post-operative Note Author:Keyon Ramey MD Date:01/02/23 Plan Transfer/Discharge: Transfer/Discharge Discharge when meets criteria ( To home ). Extracted from: Title:ANES Pre-operative Note Author:Kaleb Ramey MD Date:01/02/23 Plan [place] [employer] Anesthesiologists (ASA) physical status classification: Class III. Anesthetic Preoperative Plan: Anesthesia Monitored anethesia care. [facility]12-08-2022 Hospital Discharge instructions Patient Education 11/01/2022 12:01:38 [...] including vitamins, herbs, eye drops, creams, and fcgh-vsc-sfvgugt medicines. Any problems you or family members [...] 11/08/2001 Document Revised: 09/03/2018 Document Reviewed: 01/22/2017 [employer] Patient Education 2020 ViS. Follow Up Care 09/28/2022 10:36:04 With:Sue Qureshi CNP Address: When:1 to 2 weeks Comments:Following colonoscopy. [facility] [id number] Note [id number]:127[facility] 02-13-2022 [id number]:127[facility]12-30-2021 History of Present illness Narrative* Gabriella Grimaldo RN - 11/23/2021 9:00 AM EST Anesthesia to review pt's EKG pre op * Gabriella Grimaldo RN - 11/23/2021 9:00 AM EST [facility] Preadmission Testing Name: Hari Thornton : 1975 Patient (home) [phone] (work) Procedure AKUA HALLUX MATRIECTOMY Date of [...] Yes Surgery Location Verified: Yes Patient Language: KAZAKH Medical History Reviewed: Yes NPO Status Reinforced: Yes Ride and Caregiver Arranged: Yes Ride Caregiver Provider: TAMMY Pre-AdmissionTesting Checklist Patient has been to this health system before?: Yes Does patient refuse blood?: No Healthcare Directive: No, patient does not have an advance directive for healthcare treatment Revival Clerk needed: No Patient can read and write?: [...] instructions reviewed with patient. documented in this [facility] [employer] Phone: evaluation + Plan note No data available for this section [facility] Future Appointments Appointment Date:01/02/2023 12:40:00 PM Scheduled Provider: Location:[facility] Surgical Services Appointment Type:Surgery FT Future Scheduled Tests Laboratory* Fecal WBC Lactoferrin 11/01/22 * Giardia lamblia, Direct Detection EIA 11/01/22 * O & P Exam, Routine 11/01/22 * Clostridium Difficile PCR 11/01/22 * Enteric Panel by PCR 11/01/22 [facility] Evaluation note* Diagnosis Suicidal ideation- Primary Homicidal ideations Homicidal ideation documented in this encounter [employer] Work Phone: evaluation note* Diagnosis Acute upper respiratory infection- Primary Acute upper respiratory infections of unspecified site documented in this encounter [employer] Work Phone: evaluation noteNo [place] [facility] [facility] Other Evaluation note* Diagnosis Onset Date Resolution Status Constipation due to slow transit acute Controlled type 2 diabetes mellitus with hyperglycemia acute Depression, major, recurrent, mild acute Essential hypertension acute Obstructive sleep apnea acut e Seborrheic dermatitis of scalp acute Stanley syndrome acute Cellulitis of finger of right hand acute [facility] Work Phone: Evaluation note* Diagnosis Onset Date Resolution Status Cellulitis of finger of right hand acute [facility] Work Phone: evaluation note* Diagnosis Onset Date Resolution Status Constipation due to slow transit acute Controlled type 2 diabetes mellitus with hyperglycemia acute Depression, major, recurrent, mild acute Essential hypertension acute Obstructive sleep apnea acut e Stnaley syndrome acute [facility] Work Phone: Evaluation note* Diagnosis Onset Date Resolution Status Controlled type 2 diabetes mellitus with hyperglycemia acute Depression, major, recurrent, mild acute Diarrhea acute Essential hypertension acute Obstructive sleep apnea acut e Stanley syndrome acute [facility] Work Phone: Evaluation note* Diagnosis Onset Date Resolution Status Controlled type 2 diabetes mellitus with hyperglycemia acute Depression, major, recurrent, mild acute Diarrhea acute Essential hypertension acute Obstructive sleep apnea acut e Stanley syndrome acute Controlled type 2 diabetes mellitus with hyperglycemia acute Depression, major, recurrent, mild acute Essential hypertension acute Hypercholesterolemia acute Irritable bowel syndrome wit h both constipation and diarrhea acute Medicare annual wellness visit, subsequent acute Obstructive sleep apnea acut e Screening PSA (prostate specific antigen) acute Stanley syndrome acute [facility] Work Phone: Hisqjjn general Narrative - Reported* Type Description Date [...] LOCAL ANESTHESIA Hospitalization History SEE SURGICAL HX [facility] Other Hisugrs general Narrative - Reported* Type Description Date [...] LOCAL ANESTHESIA Hospitalization History SEE SURGICAL HX [facility] Other Hospital Discharge instructions* Attachments The following attachments cannot be sent through Care Everywhere. * URI (Upper Respiratory Infection): Viral (Spanish) * Sinus Rinse (Spanish) documented in this encounterBON [employer] Phone: Hospital Discharge instructions No data available for this section [facility] No data available for this section [facility] Narrative* Auth/Cert Specialty Diagnoses / Procedures Referred By Alana barragan Referred To Contact Diagnoses Ingrown toenail of both feet CHRONIC INGROWNS Procedures MT REMOVAL OF NAIL BED NAILBED EXCISION MATRIXECTOMY-HALLUX Kashmir Kelly, DPSusan [address] [place] [address] [employer] [address] [place] [address] Referral ID Status Reason Start Date Expiration Date Visits Re quested Visits Authorized [id number] 1 1 [employer] Phone: Summary Purpose Family History Relationship Condition Age at Onset Recorded Date/T jordyn Not Specified Diabetes mellitus Unknown Relationship Condition Age at Onset Recorded Date/T jordyn mother Diabetes mellitus Unknown Advance Directives Documents on File Type Date Recorded Patient [employer] Expl anation ACP-Advance Directive ACP-Power of Lease Analyst Documents on File Type Date Recorded Patient [employer] Expl anation ACP-Advance Directive ACP-Power of Lease Analyst Documents on File Type Date Recorded Patient [employer] Expl anation ACP-Guardianship 05/22/2022 1:36 PM Latest [...] Documents on File Type Date Recorded Patient [employer] Expl anation ACP-Guardianship 05/22/2022 1:36 PM Latest [...] Grimaldo RN - 11/16/2020 8:00 AM EST [facility] Preadmission Testing Name: Hari Thornton : [...] Yes Surgery Location Verified: Yes Patient Language: KAZAKH Medical History Reviewed: Yes NPO Status Reinforced: Yes Ride and Caregiver Arranged: Yes Ride Caregiver Provider: TEMO Pre-AdmissionTesting Checklist Patient has been to this health system before?: Yes Does patient refuse blood?: No Healthcare Directive: No, patient does not have an advance directive for healthcare treatment Revival Clerk needed: No Patient can read and write?: Yes Bmkj-tm-Gfaj: Does the patient want to have any [...] question or concerns please call the office ([phone]). If after hours Dr. Kelly can be reached at [phone] (home) or [phone] (cell phone). documented in this encounter Chief [...] Obstructive sleep apnea Stanley syndrome Chief Complaint 6 month f/u I63.81 3 month f/u Reason for Visit Controlled type 2 di abetes mellitus with hyperglycemia Depression, major, recurrent, mild Diarrhea Essential hypertension Obstructive sleep apnea Stanley syndrome Controlled type 2 diabetes mellitus with hyperglycemia Depression, major, recurrent, mild Essential hypertension Hypercholesterolemia Irritable bowel syndrome with both constipation and diarrhea Medicare annual wellness visit, subsequent Obstructive sleep apnea Screening PSA (prostate specific antigen) Stanley syndrome Additional Source Comments (unrecognized sect ion and content) No Status Records FoundNo Status Records FoundNo Status Records FoundNo Status Records FoundNo Status Records FoundNo Status Records FoundNo Status Records Found INFORMATION SOURCE (unrecogn ized section and content) DATE CREATED AUTHOR 05/15/2018 [facility] DATE CREATED AUTHOR AUTHOR'S ORGANIZ ATION 05/19/2022 [facility] DATE CREATED AUTHOR AUTHOR'S ORGANIZ ATION 01/17/2023 [facility] DATE CREATED AUTHOR AUTHOR'S ORGANIZ ATION 04/10/2023 [facility] DATE CREATED AUTHOR AUTHOR'S ORGANIZ ATION 07/09/2024 [facility] DATE CREATED AUTHOR AUTHOR'S ORGANIZ ATION 07/17/2024 [facility] DATE CREATED AUTHOR AUTHOR'S ORGANIZ ATION 07/22/2024 [facility] EPIC Reason for Visit (unrecogniz ed section and content) Status Reason Specialty Diagnoses / Procedures Referre d By Contact Referred To Contact Closed Radiology Diagnoses Alternating exotropia Diplopia Myopathy of extraocular muscles, bilateral Procedures HC MRI-BRAIN WO & W CONTRAST [id number] MRI BRAIN WWO Bipin Quintana Y, DO [address] [place] [address] [facility] [address] [place] [address] Status Reason Specialty Diagnoses / Procedures Referre d By Contact Referred To Contact Diagnoses Skin lesion SKIN LESION LEFT PLANTAR FOOT Procedures MT EXC TUMOR SOFT TISSUE FOOT/TOE SUBFASC <1.5CM FOOT LESION BIOPSY EXCISION, PLANTAR Kashmir Kelly, DPM [address] [place] [address] [facility] Reason Comments Suicidal Pt reports thoughts of suicide after fight with girlfriend today Reason Comments Concern For COVID-19 Pt was exposed to C ovid and has recently had cough and headache with episodes of tachycardia Specialty Diagnoses / Procedures Referred By Alana t Referred To Contact Diagnoses Onychocryptosis Onychocryptosis [L60.0] Procedures MT EXCISION NAIL MATRIX PERMANENT REMOVAL NAILBED EXCISION MATRIXECTOMY- DIGITS 1,4,5 Kashmir Kelly, DPM [address] [place] [address] [facility] [address] [place] [address] Referral ID Status Reason Start Date Expiration Date Visits Re quested Visits Authorized [id number] 1 1 Care Teams (unrecognized sec tion and content) Team Status: Active Member Role Status Destin Gagnon DO Primary Care Provider Active Team Status: Inactive Member Role Status Destin Gagnon DO Primary Care Provide r, Attending Provider Active Start: June 24, 2024 End: June 24, 2024 Team Status: Inactive Member Role Status Dates Narayan Gagnon DO Primary Care Provider Active Start: July 02, 2024 End: July 02, 2024 Ju Hoffmann DIGITAL ACCOUNT EXECUTIVE-COMMERCIAL REAL ESTATE LENDER-C Attending Provider Active Start: July 02, 2024 End: July 02, 2024 Team Status: Active Member Role Status Destin Gagnon DO Primary Care Provide r, Attending Provider Active Start: September 02, 2024 Team Status: Inactive Member Role Status Destin Gagnon DO Primary Care Provide r, Attending Provider Active Start: September 17, 2024 End: September 17, 2024 Team Status: Active Member Role Status Destin Gagnon DO Primary Care Provider Active Team Status: Active Member Role Status Destin Gagnon DO Primary Care Provider Active Start: April 13, 2024 DAWNA Guajardo Attending Provider Active Start : April 13, 2024 Team Status: Inactive Member Role Status Dates Narayan Gagnon DO Primary Care Provider Active Start: May 15, 2024 End: May 15, 2024 Ju Hoffmann APRN-COMMERCIAL REAL ESTATE LENDER-C Attending Provider Active Start: May 15, 2024 [...] End: March 12, 2024 Janna Krause APRN WARES SORTER-C Attending Provider Act sharyn Start: March 12, 2024 End: March 12, 2024 [employer] Reservoir Keeper Relationship Specialty Start Date End Date Narayan Gagnon DO PCP - General 07/30/14 [employer] Reservoir Keeper Relationship Specialty Start Date End Date Narayan Gagnon DO PCP - General 07/30/14 [employer] Reservoir Keeper Relationship Specialty Start Date End Date Narayan Gagnon DO PCP - General 07/30/14 [employer] Reservoir Keeper Relationship Specialty Start Date End Date Narayan Gagnon DO PCP - General 07/30/14 Team Status: Active Member Role Status Dates Narayan Gagnon DO Primary Care Provider Active Start: January 21, 2024 DAWNA Guajardo Attending Provider Active Start : January 21, 2024 Team Status: Inactive Member Role Status Dates Narayan Gagnon DO Primary Care Provide r, Attending Provider Active Start: January 23, 2024 End: January 23, 2024 [employer]ed[employer] And Reservoir Keeper Relationship Specialty Start Date End Date Narayan Gagnon DO PCP - General 07/30/14 [employer] Res[employer] Keeper Relationship Specialty Start Date End Date Narayan Gagnon PCP - General 07/30/14 Team Status: Inactive Member Role Status Dates Narayan Gagnon DO Primary Care Provider Active Start: July 02, 2024 End: July 02, 2024 Ju Hoffmann APRN-COMMERCIAL REAL ESTATE LENDER-C Attending Provider Active Start: July 02, 2024 End: July 02, 2024 Team Status: Active Member Role Status Dates Narayan Gagnon DO Primary Care Provide r, Attending Provider Active Start: September 02, 2024 Team Status: Inactive Member Role Status Dates Narayan Gagnon DO Primary Care Provide r, Attending Provider Active Start: September 17, 2024 End: September 17, 2024 Scheduled Active and Recently Administ ered Medications (unrecognized section and content) Medication Order 05/15/2022 05/16/2022 05/17/2022 acetaminophen (TYLENOL) tablet 1,000 mg (COMPLETED) 1,000 mg, Oral, ONCE, 1 dose, On Sat05/16/22 at 1930, Maximum dose of acetaminophen is 4000 mg from all sources in 24 hours. 193 (Given - Provider: Merrill Garcia RN) clonazePAM (KLONOPIN) tablet 1 mg (COMPLETED) 1 mg, Oral, ONCE, 1 dose, On Sat05/16/22 at 2300 2309 (Given - Provider: Deonna aRndle RN) LORazepam (ATIVAN) tablet 1 mg (COMPLETED) [...] at 2300 2309 (Given - Provider: Deonna Randle, RN) traZODone (DESYREL) tablet 100 mg (COMPLETED) 100 mg, Oral, ONCE, 1 dose, On Sat05/16/22 at 2300 2309 (Given - Provider: Deonna Randle, RN) Scheduled Medication Order 05/05/2024 05/06/2024 05/07/2024 clindamycin (CLEOCIN) 900 mg in dextrose 5 % 50 mL IVPB (COMPLETED) 900 mg, IntraVENous, ONCE, 1 dose, On Allyson 05/07/24 at 0730, Antimicrobial Indications: Surgical Prophylaxis, Pre-op (day of surgery) 0845 (New Bag - Prov ider: Anabell Thompson, RN)0945 (Due: Stopped - Provider: Anabell Thompson RN) Continuous Medication Order 05/05/2024 05/06/2024 05/07/2024 lactated ringers IV soln infusion IntraVENous, at 100 mL/hr, CONTINUOUS, Starting on Allyson 05/07/24 at 0730, Pre-op (day of surgery) 0730 (New Bag - Prov ider: Germaine Alvarez RN)0850 (NoRateChange - Provider: Janna Love APRN - SHELL MOLD BONDER)0920 (Rate/Dose Change - Provider: Janna Love APRN - SHELL MOLD BONDER)0953 (Stopped - Provider: Ju Paulino RN) PRN Medication Order 05/05/2024 05/06/2024 05/07/2024 BUPivacaine (MARCAINE) 0.5 % 3 mL, lidocaine 1 % 3 mL (CANCELED) PRN, Starting on Allyson 05/07/24 at 0903, Intra-op 0903 (Given - Provid er: Kashmir Kelly DPM - Comment: right toes 1, 4 [...] BE BASED ON THE PRIMARY CLINICAL RECORDS. [facility] [employer] [facility]. provides no warranty or guarantee of the accuracy or completeness of information in this document.
[2024-09-25 10:57] LABS: Estimated Average Glucose 212 mg/dL
[2024-09-25 11:01] LABS: Chol HDL Ratio 3.8; Cholesterol 170 mg/dL (<=200); HDL Cholesterol 45 mg/dL (40-60); Triglycerides 188 mg/dL (<=150); VLDL CHOLESTEROL 37.6 mg/dL
[2024-09-25 11:16] LABS: Prostate Specific Antigen Scrn 0.33 ng/mL (<=4.00)
== END 2024-09-25 10:12 | disposition home or self-care (01) ==
LOC: LAB 10:14
PROVIDERS: PCP Internal Medicine; Visit Provider Internal Medicine
DX: E78.00 Pure hypercholesterolemia, unspecified (principal); Z12.5 Encounter for screening for malignant neoplasm of prostate; E11.65 Type 2 diabetes mellitus with hyperglycemia
CPT/HCPCS: 36415; 80061; 83036; G0103

== ENCOUNTER 2024-11-24 19:39 | Emergency (ER) | payer MEDICARE, MEDICAID, SELFPAY ==
[2024-11-24 19:49] VITALS: BP 160/82; PULSE 104; TEMP 36.8; O2SAT 93; BMI 28.7
--- OUTSIDE RECORDS SUMMARY | 2024-11-24 19:55 | XMS_ITS | CCD ---
Author Organization [facility] Care Team Providers Care Database Designer Name Role Phone PHYSICIAN, DEFAULT Unavailable Unavailable PHYSICIAN, DEFAULT Unavailable Unavailable NARAYAN GAGNON Unavailable Unavailable PHYSICIAN, DEFAULT Unavailable Unavailable PHYSICIAN, DEFAULT Unavailable Unavailable NARAYAN GAGNON Unavailable Unavailable Narayan Gagnon Primary Care Provider [phone] Narayan Gagnon DO Primary Care Provider Narayan Gagnon DO Primary Care Provider [phone] VAHID MOODY Referring Unavailable AARON, MARCELO S Consulting Unavailable NARAYAN GAGNON Primary Care Unavailable ZOLTAN MONIQUE Attending Unavailable ZOLTAN MONIQUE Admitting Unavailable Narayan Gagnon DO Primary Care Provider [phone] NARAYAN GAGNON Primary Care Physician [phone] Sue Qureshi A Attending Unavailable Ballard, Malina T Admitting Unavailable Ballard, Malina Barragan Attending Unavailable Ballard, Malina T Referring Unavailable SALAM, Phan Admitting Unavailable SALAM, Sylvester Attending Unavailable SALAM, [...] BALL, DR BUSCH Primary Care Unavailable Ball Narayan SOTELO Primary Care Provider [phone] DO Narayan Gagnon Primary Care Provider JEYSON Hoffmann-[employer] SPECIALIST-C Ju Stock Attending Provider Narayan Gagnon Primary Care Unavailable Hoffmann, Ju Stock Admitting Unavailable Hoffmann, Ju Stock Attending Unavailable Ball, Narayan Primary Care Unavailable Hoffmann, Ju Stock Admitting Unavailable Hoffmann, Ju Stock Attending Unavailable BALLARD, MALINA Barragan Attending Unavailable BALLARD, MALINA Barragan Referring Unavailable HOFFMANN, JU Attending Unavailable HOFFMANN, JU Attending Unavailable COCO HURTADO Attending Unavailable Ball, DO Narayan Primary Care Provider JEYSON Hoffmann-[employer] SPECIALIST-C Ju Stock Attending Provider NARAYAN GAGNON Primary Care Unavailable BALL, NARAYAN Referring Unavailable BALL, NARAYAN Primary Care Unavailable BALL, NARAYAN Referring Unavailable KASHMIR KELLY Attending Unavailable BALL, NARAYAN Primary Care Unavailable CONSKASHMIR GONZALES Admitting Unavailable Ball Narayan ANN Primary Care Provider Allergies Allergy Classification Reported Allergen(s) Allergy Type Date of Onset Reaction(s) Facility (20 sources) Morphine; Translations: [morphine] Drug Allergy 4 Hives, Vomiting (disorder), Difficulty breathing (finding), Shortness of breath, Other [place], [place] (14 sources) Penicillins Propensity to adverse reactions to drug 4 Hives [place] (20 sources) Vancomycin; Translations: [vancomycin] Drug Allergy 3 Anaphylaxis, Difficulty breathing (finding), Unknown [place] (20 sources) Penicillin; Translations: [penicillin] Drug Allergy Urticaria (disorder) [facility] (1 source) Morphine Drug Allergy [facility] (1 source) Vancomycin Drug Allergy [facility] (18 sources) Penicillin G Benzathine & Proc Drug allergy Unknown [facility] Other (18 sources) Morphine Sulfate (Concentrate) *ANALGESICS - OPIOI Propensity to adverse reactions Unknown Sirigen Other (6 sources) Allergies Reconciled Propensity to adverse reactions Unknown Sirigen Other (6 sources) patient allergy list reviewed by nurse or physicia Propensity to adverse reactions 4 Comment:Done Sirigen Other (3 sources) Penicillins Propensity to adverse reactions to drug 4 [facility] (1 source) Morphine Drug Allergy 4 [facility] (1 source) Penicillins Drug allergy (disorder) 4 [facility] (1 source) Vancomycin Drug Allergy 4 [facility] (3 sources) Penicillins Drug Allergy 1 [facility] Medications Current Medications Medication Drug Class(es) Dates [...] 0 Active azithromycin 250 mg oral tablet (2 sources) Macrolide Antimicrobial Start: 09-17-2024 Azithromycin Active 250 MG PO .COMPLEX 6 September 17, 2024 12:00am 2 tabs on first day followed by 1 tab on days 2-5 Blood Glucose Monitoring Suppl (ReliOn True Met Air Gluc Meter) w/Device kit (3 sources) Start: 04-06-2024 Blood Glucose Monitoring Suppl (ReliOn True Met Air Gluc Meter) w/Device kit Take 1 puff by mouth if needed 04/06/2024 Active Blood-Glucose Meter (True Metrix Air Glucose Meter) misc (5 sources) Start: 04-06-2024 Blood-Glucose Meter (True Metrix Air Glucose Meter) misc Active 0 .Route 1 April 06, 2024 12:00am to test BS daily calcium chloride 0.0014 meq/ml / potassium chloride 0.004 meq/ml / sodium chloride 0.103 meq/ml / sodium lactate 0.028 meq/ml injectable solution (2 sources) Start: 05-07-2024 lactated ringe rs IV soln infusion Start: 11-24-2020 lactated ringe rs infusion cetirizine hydrochloride 10 mg chewable tablet (3 sources) Histamine-1 Receptor Antagonist cetirizine (ZyrTEC) 10 MG chewable tablet Chew Daily. Active clonazePAM 1 mg oral tablet (18 sources) Benzodiazepine Start: 020 take 1 mg by mouth twice daily clonazepam 1 mg, Oral, BID, Psychosis Start Date: 08/10/20 Status: Ordered dulaglutide (Trulicity) 4.5 MG/0.5ML solution pen-injector (3 sources) inject 4.5 mg by subcutaneous injection every week dulaglutide (Trulicity) 4.5 MG/0.5ML solution pen-injector Inject 4.5 mg under the skin 1 (one) time per week. Active DULoxetine 60 mg delayed release oral capsule (5 sources) Serotonin and Norepinephrine Reuptake Inhibitor Start: take 1 capsule by mouth once daily in the morning DULoxetine (Cymbalta) [address] capsule TAKE 1 CAPSULE BY MOUTH ONCE DAILY IN THE MORNING 11/27/2023 Active empagliflozin 25 mg oral tablet (20 sources) Sodium-Glucose Cotransporter 2 Inhibitor Start: End: take 25 mg by mouth once daily Empagliflozin Active 25 MG PO Daily June 26, 2024 8:47am Fiber (3 sources) Start: take 1 tablet by mouth every other day Fiber Lax 625 mg oral tablet 625 mg = 1 tab(s), Oral, Every other day, Refills(s) 0, Constipation Start Date: 05/09/20 Status: Ordered fluticasone propionate 0.05 mg/actuat metered dose nasal spray (20 sources) Corticosteroid Start: Fluticasone Propionate Active 1 SPRAY INTRANASAL Daily January 22, 2024 1:00am take 1 spray(s) nasal route once daily Fluticasone Propionate 50 MCG/ACT 1 spray in each nostril Nasally Once a day Active take 1 spray(s) nasal route once daily Fluticasone Propionate 50 MCG/ACT 1 spray in each nostril Nasally Once a day Active glimepiride 2 mg oral tablet (20 sources) Sulfonylurea Start: 09-18-2024 take 2 mg by mouth once daily Glimepiride Active 2 MG PO Daily September 18, 2024 12:00am Start: 01-23-2024 End: 09-17-2024 Glimepiride Discontinued 2 M G PO Daily June 26, 2024 8:47am September 17, 2024 11:20am Take with 4mg dose, 30 minutes prior to bkfst Start: 01-22-2024 End: 06-01-2024 take 4 mg by mouth once daily Glimepiride Discontinued 4 MG PO Daily March 31, 2024 2:13pm June 01, 2024 [...] tablets by mouth every morning (before breakfast) Active take 4 tablets by mo uth once daily before breakfast glimepiride (AMARYL) 1 MG tablet Take 4 mg by mouth every morning (before breakfast) 0 Active hyoscyamine sulfate 0.125 mg sublingual tablet (15 sources) Start: 01-22-2024 take 1 tablet under the tongue once daily Hyoscyamine Sulfate (Levsin/Sl) 0.125 mg tablet, sublingual Active 0.125 MG SUBLINGUAL Daily January 22, 2024 1:00am Start: 11-13-2023 hyoscyamine (L evsin) 0.125 MG SL tablet DISSOLVE 1 TABLET UNDER THE TONGUE NEEDED BEFORE MEAL(S) AND AT BEDTIME FOR 15 DAYS 11/14/2023 Active ibuprofen 800 mg oral tablet (11 sources) Nonsteroidal Anti-inflammatory Drug Start: 07-30-2014 take [...] (s) 0 Start Date: 11/01/22 Status: Ordered lurasidone hydrochloride 20 mg oral tablet (20 [...] Active metFORMIN hydrochloride 500 mg oral tablet (20 sources) Biguanide Start: 01-08-2022 take 1 tablet by mouth twice daily metformin 500 mg oral tablet 500 mg = 1 tab(s), Oral, BID, Blood glucose Start Date: 01/08/22 Status: Ordered Start: 04-29-2018 End: 01-22-2024 take 1000 mg by mouth twice daily at mealtime Metformin Discontinued 1000 MG PO Twice daily April 29, 2018 12:00am January 22, 2024 12:43pm with meals take 1 tablet by abdoulaye th twice daily metFORMIN, MOD, (Glumetza) 1000 MG 24 hr tablet Take 1 tablet twice a day by oral route. Active metFORMIN (GLUCO PHAGE) 1000 MG tablet Take 500 mg by mouth 2 times daily (with meals) 0 Active metroNIDAZOLE 7.5 mg/ml topical cream (20 sources) Nitroimidazole Antimicrobial Start: 03-04-2023 Metronidazole (Metrocream) 0.75 % cream Active 1 APPLIC TOPICAL Twice daily January 22, 2024 1:00am Start: 03-04-2023 MetroCream 0.7 5 % 1 application Externally Twice a day for 30 days Feb, Active Multiple Vitamin (MULTI VITAMIN DAILY PO) (3 sources) Multiple Vitamin (MULTI VITAMIN DAILY PO) Active omeprazole 40 mg delayed release oral capsule (5 sources) Proton Pump Inhibitor Start: 2 End: 3 take 1 capsule by mouth once daily omeprazole 40 mg Cap-DR 40 mg = 1 cap(s), Oral, Daily, X 90 day(s), # 90 cap(s), Refills(s) 0, Pharmacy: [id number], 171, cm, 11/01/22 12:17:00 EST, Height/Length Dosing, 78.9, kg, 11/01/22 12:17:00 EST, Weight Dosing Start Date: 11/01/22 Stop Date: 01/30/23 Status: Ordered polyethylene glycol 3350 [id number] mg / potassium chloride 1480 mg / sodium bicarbonate 5720 mg / sodium chloride 76074 mg powder for oral solution (1 source) Osmotic Laxative Start: 2 NuLYTELY Zimmer oral powder for reconstitution See Instructions, 1 EA, Refill(s) 0, Prior to colonoscopy., [id number], 171, cm, 11/01/22 12:17:00 EST, Height/Length Dosing, 78.9, kg, 11/01/22 12:17:00 EST, Weight Dosing Start Date: 11/01/22 Status: Ordered pravastatin sodium 20 mg oral tablet (20 sources) HMG-CoA Reductase Inhibitor Start: End: 4 take 20 mg by mouth once daily in the evening Pravastatin Active 20 MG PO Every evening August 04, 2024 10:37pm primidone 50 mg oral tablet (13 sources) Anti-epileptic Agent Start: 4 primidone (Mysoline) 50 MG tablet Indications: Tremor Take 2 tablets PO with supper 180 tablet 1 07/20/2024 Active Start: 06-25-2024 End: 09-23-2024 take 1 tablet by mouth in the morning primidone (Mysoline) 50 MG tablet Indications: Tremor Take 1 tablet (50 mg) by mouth in the morning and 1 tablet (50 mg) before bedtime. 180 tablet 1 06/25/2024 07/20/2024 Discontinued (Reorder) Start: 05-16-2022 End: 05-16-2022 primidone (MYSOLINE) tablet 25 mg Start: 01-08-2022 primidone 50 m g Tab 25 mg = 0.5 tab(s), Oral, Once a day (at bedtime), Psychosis Start Date: 01/08/22 Status: Ordered take 0.5 tablet by m outh once daily primidone (MYSOLINE) 50 MG tablet Take 0.5 tablets by mouth nightly Active sulfamethoxazole 800 mg / trimethoprim 160 mg oral tablet (6 sources) Dihydrofolate Reductase Inhibitor Antibacterial, Sulfonamide Antimicrobial Start: 03-12-2024 take 1 tablet by mouth every twelve hours Sulfamethoxazole-Trimethoprim (Bactrim Ds) 800-160 mg tablet Active 1 [...] evening August 04, 2024 10:36pm take 1 capsule by mo [facility] three times daily as needed for muscle spasms tiZANidine (Zanaflex) 4 MG capsule Take 4 mg by mouth 3 (three) times a day as needed for muscle spasms Active [facility] tiZANidine HCl 4 MG [...] the morning and at bedtime 60 tablet 05/18/2022 Active Start: 05-05-2018 End: 01-22-2024 take [...] 2024 12:44pm take 2 tablets by mo [facility] twice daily divalproex (DEPAKOTE) 250 MG [...] mouth every other day Alternate with Colace Active Calcium Polycarb ophil (FIBER-LAX PO) Fiber-Lax Active take 2 tablets by mo uth every eight hours Fiber-Lax 625 MG 2 tablets as needed Ora lly Three times a day for 30 days Active cholecalciferol 0.025 mg oral capsule (6 sources) Vitamin D Start: 04-29-2018 End: 01-22-2024 take 1 capsule by mouth once daily Cholecalciferol (Vitamin D3) (Vitamin D3) 1,000 unit Capsule Discontinued 1000 UNIT PO daily April 29, 2018 12:00am January 22, 2024 12:44pm citalopram 40 mg oral tablet (7 sources) Serotonin Reuptake Inhibitor Start: 04-29-2018 End: [...] 11:22am Start: 05-09-2020 take 1 capsule by [facility] twice daily as needed for constipation Colace 100 mg Cap 100 mg = 1 cap(s), Oral, BID, PRN for constipation, # 20 cap(s), Refills(s) 0 Start Date: 05/09/20 Status: Ordered take 1 capsule by [facility] every other day docusate sodium (COLACE) 100 MG capsule Take 1 capsule by mouth every other day Alternate with Fibercon 625 mg Active 0.5 ml dulaglutide 1.5 mg/ml auto-injector (20 sources) GLP-1 Receptor Agonist Start: 06-12-2024 End: 09-17-2024 Dulaglutide (Trulicity) 0.75 mg/0.5 mL pen injector Discontinued 1.5 MG SUBCUT every week June 12, 2024 2:21pm September 17, 2024 [...] End: 11-17-2020 gadoteridol (PROHANCE) injection 15 mL lisinopril 20 mg oral tablet (20 sources) Angiotensin Converting Enzyme Inhibitor Start: 01-08-2022 End: 08-04-2024 take 20 mg by mouth once daily Lisinopril Discontinued 20 MG PO Daily January 22, 2024 1:00am August 04, 2024 10:39pm Start: 04-29-2018 End: 01-22-2024 take 5 mg by mouth once daily Lisinopril Discontinued 5 MG PO daily April 29, 2018 12:00am January 22, 2024 12:41pm take 4 tablets by mo ut once daily in the morning lisinopril (PRINIVIL;ZESTRIL) 5 MG tablet Take 20 mg by mouth every morning 0 Active LORazepam 1 mg oral tablet (1 source) Benzodiazepine Start: 05-16-2022 End: 05-16-2022 LORazepam (ATIVAN) tablet 1 mg mirtazapine 15 mg oral tablet (6 sources) Start: 05-05-2018 End: 01-22-2024 take 15 [...] End: 05-17-2022 OLANZapine (ZYPREXA) tablet 10 mg traMADol hydrochloride 50 mg oral tablet (20 sources) Opioid Agonist Start: 03-12-2024 End: 09-17-2024 take 50 mg by mouth twice daily [...] Classification Problem Date Documented Da te Episodic/Chronic Acute cerebrovascular disease (1 source) Other cerebral [...] Onset: 02-10-2014 Chronic Diabetes mellitus without complication (19 sources) Type 2 diabetes mellitus without complication; [...] [Essential (primary) hypertension] Onset: 03-17-2015 05-17-2022 Chronic Headache; including migraine (20 sources) Episodic [...] source) Homicidal thoughts; Translations: [Homicidal ideations] Episodic Joint disorders and dislocations; trauma-related (3 sources) Derangement of left knee; Translations: [Unspecified internal derangement of left knee] Onset: 03-04-2020 08-08-2023 Chronic Malaise and fatigue (20 sources) Fatigue; Translations: [Chronic fatigue, unspecified] Onset: 02-08-2023 Chronic Malaise and fatigue (19 sources) Weakness; Translations: [Malaise and fatigue] Onset: 01-26-2014 Episodic Miscellaneous mental health disorders (20 sources) Mental disorder; Translations: [Primary insomnia] Onset: 07-02-2023 05-09-2020 Chronic Mood disorders (20 sources) Depressive disorder; Translations: [Depression with suicidal ideation] Onset: 11-20-2018 05-17-2022 Chronic Nutritional deficiencies (6 sources) Vitamin D deficiency; Translations: [Vitamin D deficiency, unspecified] Onset: 01-17-2017 Chronic Osteoarthritis (20 sources) Arthritis; Translations: [Arthritis of left knee] Onset: 07-02-2023 05-09-2020 Chronic Other aftercare (4 sources) Other snf (current) drug therapy; Translations: [[facility] CURRENT DR[facility]ERAPY] Onset: 02-11-2023 Episodic Other and unspecified benign neoplasm (20 sources) Polyp of colon; Translations: [Polyp of colon] Episodic Other congenital anomalies (6 sources) Congenital chromosomal disease; 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, unspecified] Onset: 02-28-2018 08-26-2020 Chronic Other congenital anomalies (20 sources) Stanley syndrome; 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] Onset: 03-03-2018 05-09-2020 Chronic Other congenital anomalies (6 sources) Congenital malformation syndrome; Translations: [Other specified multiple congenital anomalies, so described] Onset: 03-15-2014 Chronic Other congenital anomalies (6 sources) Congenital pes planus; Translations: [Congenital pes planus, unspecified foot] Onset: 08-06-2014 Chronic Other congenital anomalies (7 sources) Stanley syndrome; 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] Onset: 11-05-2024 01-23-2024 Chronic Other connective tissue disease (20 sources) History of right total knee replacement; Translations: [Presence of right artificial knee joint] Chronic Other connective tissue disease (1 source) Presence of right artificial knee joint; Translations: [History of total right knee replacement] Chronic Other ear and sense organ disorders (6 sources) Hearing loss; Translations: [Unspecified hearing loss, unspecified ear] Onset: 07-02-2023 05-09-2020 Chronic Other ear and sense organ disorders (20 sources) Sensorineural hearing loss; Translations: [Unspecified sensorineural hearing loss] 01-22-2024 Chronic Other ear and sense organ disorders (3 sources) Mixed conductive AND sensorineural hearing loss; Translations: [Mixed conductive and sensorineural hearing loss, unilateral, right ear with restricted hearing on the contralateral side] Onset: 07-02-2023 07-02-2023 Chronic Other eye disorders (1 source) Myopathy [...] bowel syndrome] 01-22-2024 Chronic Other gastrointestinal disorders (5 sources) Mixed irritable bowel syndrome; Translations: [Irritable [...] abdomen] Onset: 11-01-2022 Episodic Other gastrointestinal disorders (4 sources) Diarrhea; Translations: [Diarrhea, unspecified] Onset: 01-02-2023 Episodic Other gastrointestinal disorders (3 sources) Diarrhea, unspecified; Translations: [Diarrhea] Episodic Other gastrointestinal disorders (6 sources) Slow transit constipation; Translations: [Slow transit [...] Other hereditary and degenerative nervous system conditions (12 sources) Essential tremor; Translations: [Essential tremor] 01-22-2024 Chronic Other hereditary and degenerative nervous system conditions (6 sources) Impaired cognition; Translations: [Mild cognitive impairment, [...] Onset: 02-11-2023 Episodic Other male genital disorders (20 sources) [...] conditions (not mental disorders or infectious disease) (7 sources) Encounter for screening for malignant neoplasm of prostate; Translations: [Patient encounter status] Episodic Other skin disorders (6 sources) Generalized hyperhidrosis; Translations: [Generalized hyperhidrosis] Episodic Other upper respiratory infections (3 sources) Chronic pansinusitis; Translations: [Chronic pansinusitis] Onset: 05-30-2020 07-02-2023 Chronic Other upper respiratory infections (19 sources) Acute upper respiratory infection; Translations: [Acute upper respiratory infection, unspecified] Onset: 11-09-2013 Episodic Poisoning by nonmedicinal substances (6 sources) Toxic effect of venom of other arthropod, accidental (unintentional), sequela; Translations: [Toxic effect of venom of other arthropod, accidental (unintentional), sequela] Episodic Residual codes; unclassified (3 sources) Sleep apnea 01-08-2022 Chronic Residual codes; unclassified (20 sources) Obstructive sleep apnea syndrome; Translations: [Obstructive sleep apnea (adult) (pediatric)] Onset: 2018 01-22-2024 Chronic Residual codes; unclassified (11 sources) Obstructive sleep apnea (adult) (pediatric); Translations: [Obstructive sleep apnea (adult)(pediatric)] Chronic Schizophrenia and other psychotic disorders (20 sources) Schizophrenia; Translations: [Schizoaffective disorder, bipolar type] Onset: 07-02-2023 01-08-2022 Chronic Skin and subcutaneous tissue infections (18 sources) Cellulitis of right lower limb; Translations: [Cellulitis of right lower limb] Resolved: 11-04-2021 03-12-2024 Episodic Suicide and intentional self-inflicted injury (1 source) Suicidal thoughts; Translations: [Suicidal ideations] Episodic Unclassified (1 source) Patient encounter status; Translations: [Preoperative testing] Unclassified (2 sources) Finding of sensation of abdomen 12-08-2022 Unclassified (3 sources) Other specified cough; Translations: [Other specified cough] Onset: 01-21-2018 Unclassified (2 sources) pre admission testing; Translations: [pre admission testing] Onset: 05-01-2024 Past or Other Problems Problem Classification Problem Date Documented Da te Episodic/Chronic Abdominal pain (20 sources) Abdominal pain; Translations: [Unspecified abdominal pain] Onset: 01-26-2014 Resolved: 07-02-2023 05-09-2020 Episodic Acute bronchitis (6 sources) Acute bronchitis; Translations: [Acute bronchitis, unspecified] Onset: 03-22-2016 Episodic Genitourinary symptoms and ill-defined conditions (12 sources) Post-micturition incontinence ; Translations: [Urge incontinence of urine] Onset: 07-02-2023 Resolved: 07-02-2023 05-09-2020 Chronic Genitourinary symptoms and ill-defined conditions (20 sources) Dysuria; Translations: [Increased frequency of urination] Onset: 02-10-2014 Resolved: 07-02-2023 05-09-2020 Episodic Headache; including migraine (13 sources) Headache; Translations: [Chronic headache disorder] Onset: 12-12-2015 05-09-2020 Episodic Heart valve disorders (12 sources) Heart murmur; Translations: [O/E - cardiac murmur] Onset: 07-02-2023 Resolved: 12-22-2021 05-09-2020 Episodic Inflammation; infection of [...] Neoplasms of unspecified nature or uncertain behavior (12 sources) Neoplasm of lung ; 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, bronchus and lung] Onset: 02-17-2018 08-26-2020 Episodic Other aftercare (6 sources) High risk drug monitoring status; Translations: [halfway (current) use of opiate analgesic] Onset: 02-09-2019 Episodic Other and unspecified benign neoplasm (6 sources) History of polyp of colon; Translations: [Personal history of colonic polyps] Onset: 11-01-2022 Resolved: 07-02-2023 Episodic Other connective tissue disease (9 sources) Artificial knee joint present; Translations: [Presence of right artificial knee joint] Onset: 01-23-2022 Resolved: 07-02-2023 07-02-2023 Chronic Other connective tissue disease (4 sources) Other [...] specified as traumatic] Onset: 11-22-2017 Episodic Other diseases of kidney and ureters (12 sources) Vesicoureteric reflux; Translations: [Vesicoureteral-reflu x, unspecified] Onset: 07-02-2023 05-09-2020 Episodic Other diseases of kidney and ureters (3 sources) Reflux of urine; Translations: [Vesicoureteral-reflu x, unspecified] Onset: 07-02-2023 Resolved: 07-02-2023 07-02-2023 Episodic Other ear and sense organ disorders (3 sources) Subjective tinnitus; Translations: [Tinnitus, unspecified ear] Onset: 10-20-2014 07-02-2023 Episodic Other ear and sense organ disorders (3 sources) Otorrhea of left ear; Translations: [Otorrhea, left ear] Onset: 07-08-2023 07-08-2023 Episodic Other gastrointestinal disorders (6 sources) Dysphagia; Translations: [Dysphagia, unspecified] Onset: 11-01-2022 Resolved: 07-02-2023 Episodic Other gastrointestinal disorders (6 sources) Heartburn; Translations: [Heartburn] Onset: 11-01-2022 Resolved: 07-02-2023 Episodic Other gastrointestinal disorders (5 sources) Irregular bowel habits; Translations: [Other specified symptoms and signs involving the digestive system and abdomen] Onset: 07-02-2023 Resolved: 07-02-2023 11-01-2022 Episodic Other lower respiratory disease (12 sources) Lung field abnormal; Translations: [Other nonspecific abnormal finding of lung field] Onset: 06-25-2018 Episodic Other lower respiratory disease (6 sources) Chronic cough; Translations: [Chronic cough] Onset: 01-06-2018 Episodic Other lower respiratory disease (9 sources) Cough; Translations: [Cough, unspecified] Onset: 01-21-2018 Episodic Other male genital disorders (12 sources) Disorder of male genital organ; Translations: [Other specified disorders of the male genital organs] Onset: 07-02-2023 Resolved: 01-14-2021 10-28-2020 Episodic Other male genital disorders (6 sources) Swelling of testicle; Translations: [Other specified disorders of the male genital organs] Onset: 07-02-2023 Resolved: 07-02-2023 05-09-2020 Episodic Other nervous system disorders (3 sources) Antalgic gait; Translations: [Other abnormalities of gait and mobility] Onset: 07-02-2023 07-02-2023 Episodic Other nervous system disorders (5 sources) Tremor; Translations: [Tremor, unspecified] Onset: 04-15-2024 04-15-2024 Episodic Other nervous system disorders (3 sources) Other symptoms and signs involving cognitive functions and awareness; Translations: [Other signs and symptoms involving cognition] Onset: 04-16-2024 04-16-2024 Episodic Other non-traumatic joint disorders (1 source) [...] Episodic Other nutritional; endocrine; and metabolic disorders (15 sources) Obese class I; Translations: [Body mass index 32.0-32.9, adult] Onset: 01-26-2014 Resolved: 07-02-2023 07-02-2023 Chronic Other nutritional; endocrine; and metabolic disorders (6 sources) Body mass index 25-29 - overweight; Translations: [Body mass index 29.0-29.9, adult] Onset: 02-25-2017 Episodic Other nutritional; endocrine; and metabolic disorders (6 sources) Overweight; Translations: [Overweight] Onset: 01-26-2014 Episodic Other skin disorders (2 sources) Ingrowing nail; Translations: [Ingrowing nail] Onset: 05-07-2024 Episodic Otitis media and related conditions (3 sources) Dysfunction of bilateral eustachian tubes; Translations: [Unspecified Eustachian tube disorder, bilateral] Onset: 12-09-2018 07-02-2023 Episodic Pleurisy; pneumothorax; pulmonary collapse (20 sources) Obstructive atelectasis; Translations: [Atelectasis] Onset: 02-28-2018 Resolved: 01-15-2022 08-26-2020 Episodic Pneumonia (except that caused by tuberculosis [...] Basophils (Bld) [#/Vol] 0.1 10 3/uL 0.0-0.1 [facility] Basophils/100 WBC Auto (Bld) on 09-02-2024 Basophils/100 WBC (Bld) 1.0 % 0.2-2.0 [facility] Cholesterol in LDL Calc [Mas s/Vol]on 09-02-2024 Cholesterol in LDL [Mass/Vol] 90.4 mg/dL [facility] Comment on above: <100 mg/dl [id number] 0-129 mg/dl NEAR OR ABOVE [id number] mg/dl BORDERLINE [id number] mg/dl HIGH>190 mg/dl VERY HIGH Cholesterol in VLDL Calc [Ma ss/Vol]on 09-02-2024 Cholesterol in VLDL [Mass/Vol] 22.6 mg/dL [facility] Eosinophils/100 WBC Auto (Bl d)on 09-02-2024 Eosinophils/100 WBC (Bld) 1.5 % 0.9-7.0 [facility] Erythrocyte distribution wid th Auto (RBC) [Ratio]on 09-02-2024 Erythrocyte distribution width (RBC) [Ratio] 12.6 % 11.0-15.0 [facility] Globulin Calc (S) [Mass/Vol] on 09-02-2024 Globulin (S) [Mass/Vol] 4.0 g/dL [facility] Hematocrit Auto (Bld) [Volum e fraction]on 09-02-2024 Hematocrit (Bld) [Volume fraction] 45.9 % 42.0-54.0 [facility] Hemoglobin [Mass/volume] in Bloodon 09-02-2024 Hemoglobin (Bld) [Mass/Vol] 15.7 g/dL 14.0-18.0 [facility] Laboratory - Chemistry and C hemistry - challengeon 09-02-2024 Albumin [Mass/Vol] 3.8 g/dL 3.4-5.0 [facility] ALP [Catalytic activity/Vol] 65 U/L 46-116 [facility] ALT [Catalytic activity/Vol] 14 U/L Low 16-63 [facility] AST [Catalytic activity/Vol] 7 U/L Low 15-37 [facility] Bilirubin [Mass/Vol] 0.5 mg/dL 0.2-1.0 [facility] Bilirubin.direct [Mass/Vol] 0.1 mg/dL 0.0-0.2 [facility] Cholesterol [Mass/Vol] 169 mg/dL <=200 [facility] Cholesterol in HDL [Mass/Vol] 56 mg/dL 40-60 [facility] Comment on above: > or =60 mg/dl - LOW CARDIOVASCULAR RISK<40 mg/dl - HIGH CARDIOVASCULAR RISK Glucose [Mass/Vol] 154 mg/dL High 74-106 [facility] Protein [Mass/Vol] 7.8 g/dL 6.4-8.2 [facility] Triglyceride [Mass/Vol] 113 mg/dL <=150 [facility] - Hematology and Cell countson 09-02-2024 Immature granulocytes/100 WBC (Bld) 0.7 % High 0.0-0.5 [facility] Leukocytes [#/volume] correc jan for nucleated erythrocytes in Blood by Automated counon 09-02-2024 WBC corrected for nucl RBC Auto (Bld) [#/Vol] 5.9 10 3/uL 4.0-11.0 [facility] Lymphocytes Auto (Bld) [#/Vo l]on 09-02-2024 Lymphocytes (Bld) [#/Vol] 2.0 10 3/uL 1.2-3.8 [facility] Lymphocytes/100 WBC Auto (Bl d)on 09-02-2024 Lymphocytes/100 WBC (Bld) 33.4 % 20.5-60.0 [facility] MCH Auto (RBC) [Entitic mass ]on 09-02-2024 MCH (RBC) [Entitic mass] 32.4 pg 25.9-34.0 [facility] MCHC Auto (RBC) [Mass/Vol]on 09-02-2024 MCHC (RBC) [Mass/Vol] 34.2 g/dL 29.9-35.2 [facility] MCV Auto (RBC) [Entitic vol] on 09-02-2024 MCV (RBC) [Entitic vol] 94.8 fL High 80.0-94.0 [facility] Monocytes Auto (Bld) [#/Vol] on 09-02-2024 Monocytes (Bld) [#/Vol] 0.6 10 3/uL 0.3-0.8 [facility] Monocytes/100 WBC Auto (Bld) on 09-02-2024 Monocytes/100 WBC (Bld) 10.2 % 1.7-12.0 [facility] Neutrophils Auto (Bld) [#/Vo l]on 09-02-2024 Neutrophils (Bld) [#/Vol] 3.1 10 3/uL 1.4-6.5 [facility] Neutrophils/100 WBC Auto (Bl d)on 09-02-2024 Neutrophils/100 WBC (Bld) 53.2 % 43.0-75.0 [facility] No Panel Informationon 09-02 Eosinophils # (Auto) 0.1 10 3/uL 0.0-0.7 [facility] Immature Granulocyte # (Auto) 0.04 10 3/uL High 0.00-0.03 [facility] Valproic Acid (Depakene) Level 58.6 ug/mL 50.0-100.0 [facility] Platelet mean volume Auto (B ld) [Entitic vol]on 09-02-2024 Platelet mean volume (Bld) [Entitic vol] 9.6 fL 9.5-13.5 [facility] Platelets Auto (Bld) [#/Vol] on 09-02-2024 Platelets (Bld) [#/Vol] 214 10 3/uL 150-450 [facility] RBC Auto (Bld) [#/Vol]on RBC (Bld) [#/Vol] 4.84 10 6/uL 4.70-6.10 [facility] Serum or plasma albumin/glob ulin mass ratioon 09-02-2024 Albumin/Globulin [Mass ratio] 0.9 {ratio} [facility] Serum or plasma total choles terol/high density lipoprotein (HDL) cholesterol mass yuniel 09-02-2024 Cholesterol.total/C holesterol in HDL [Mass ratio] 3.0 {ratio} [facility] Comment on above: 3.3 - 4.4 LOW RISK4. 4 - 7.1 AVERAGE RISK7.1 - 11.0 MODERATE RISK>11.[address] angio neckon 07-02-2024 CT angio neck [facility] [place] [address] [place], [place] [id number] CT Scan Report Signed Patient: Hari Thornton MR#: [id number] 034 : 1975 Acct:[id number] Age/Sex: 49 / M ADM Date: 07/02/24 Loc: CT Room: Type: [facility] Attending Dr: Ju BLANC Copies to: JAYASHREE Porter Ordering Provider: JAYASHREE Porter Date of Service: 07/02/24 CT/CT angio neck: I63.81 ([id number]) CT/CT angio head: I63.81 CTA Head and [...] Balta Tracy M.D.07/02/2024 2:46 PM Dictation Location: [place] [address] Transcribed By: [facility] 07/02/24 1446 Dictated By: Balta Tracy DO 07/02/24 1439 Signed By: 07/02/24 1446 Normal [facility] Cholesterol in LDL Calc [Mas s/Vol]on 06-11-2024 Cholesterol in LDL [Mass/Vol] 76.6 mg/dL [facility] Comment on above: <100 mg/dl [id number] 0-129 mg/dl NEAR OR ABOVE [id number] mg/dl BORDERLINE ISAE284-278 mg/dl HIGH>190 mg/dl VERY HIGH Cholesterol in VLDL Calc [Ma ss/Vol]on 06-11-2024 Cholesterol in VLDL [Mass/Vol] 23.4 mg/dL [facility] Globulin Calc (S) [Mass/Vol] on 06-11-2024 Globulin (S) [Mass/Vol] 3.8 g/dL [facility] Glucose mean value [Mass/vol ume] in Blood Estimated from glycated hemoglobinon 06-11-2024 Average glucose Estimated from glycated hemoglobin (Bld) [Mass/Vol] 192 mg/dL [facility] Laboratory - Chemistry and C hemistry - challengeon 06-11-2024 Albumin [Mass/Vol] 3.8 g/dL 3.4-5.0 [facility] ALP [Catalytic activity/Vol] 66 U/L 46-116 [facility] ALT [Catalytic activity/Vol] 19 U/L 16-63 [facility] AST [Catalytic activity/Vol] 8 U/L Low 15-37 [facility] Bilirubin [Mass/Vol] 0.4 mg/dL 0.2-1.0 [facility] Bilirubin.direct [Mass/Vol] 0.1 mg/dL 0.0-0.2 [facility] Cholesterol [Mass/Vol] 151 mg/dL <=200 [facility] Cholesterol in HDL [Mass/Vol] 51 mg/dL 40-60 [facility] Comment on above: > or =60 mg/dl - LOW CARDIOVASCULAR RISK<40 mg/dl - HIGH CARDIOVASCULAR RISK Cobalamin (Vitamin B12) [Mass/Vol] 723.0 pg/mL 193.0-986.0 [facility] Protein [Mass/Vol] 7.6 g/dL 6.4-8.2 [facility] Triglyceride [Mass/Vol] 117 mg/dL <=150 [facility] TSH Qn 2.371 m[IU]/L 0.358-3.740 [facility] - Hematology and Cell countson 06-11-2024 HbA1c (Bld) [Mass fraction] 8.3 % High 4.5-6.2 [facility] Comment on above: ADA RECOMMENDED LIMI T 4.0 - 6.0ADA THERAPEUTIC TARGET < 7.0ACTION SUGGESTED> 7.0 Serum or plasma albumin/glob ulin mass ratioon 06-11-2024 Albumin/Globulin [Mass ratio] 1.0 {ratio} [facility] Serum or plasma total choles terol/high density lipoprotein (HDL) cholesterol mass yuniel 06-11-2024 Cholesterol.total/C holesterol in HDL [Mass ratio] 3.0 {ratio} [facility] Comment on above: 3.3 - 4.4 LOW RISK4. 4 - 7.1 AVERAGE RISK7.1 - 11.0 MODERATE RISK>11.0 HIGH RISK MR head/brain wo/w conon MR head/brain wo/w con [facility] [address] MRI Report Signed Patient: Hari Thornton MR#: [id number] 034 : 1975 Acct:[id number] Age/Sex: 49 / M ADM Date: 05/15/24 Loc: MR Room: Type: [facility] Attending Dr: Ju BLANC Copies to: JAYASHREE [...] Mina Jeffery M.D.05/15/2024 11:00 AM Dictation Location: [place] [address] Transcribed By: [facility] 05/15/24 1100 Dictated By: Mina Jeffery II, MD 05/15/24 1052 Signed By: 05/15/24 1100 Normal [facility] Glucose, Whole Bloodon 05-07 Glucose [Mass/Vol] 173 mg/dL High 74 - 100 mg/dL [facility] Interpretation and review of laboratory results Abnormal [facility] Glucose [Mass/Vol] 173 mg/dL High 74-100 [facility] Basic Metabolic Panelon Anion gap [Moles/Vol] 12 mmol/L 9 - 17 mmol/L [facility] Calcium [Mass/Vol] 10.6 mg/dL High 8.6 - 10. 4 mg/dL [facility] Chloride [Moles/Vol] 103 mmol/L 98 - 107 mmol/L [facility] CO2 [Moles/Vol] 24 mmol/L 20 - 31 mmol/L [facility] Creatinine [Mass/Vol] 0.7 mg/dL 0.7 - 1.2 mg/dL [facility] Est, Glom Filt Rate - PINF [facility] Comment on above: These results [...] 160 mg/dL High 70 - 99 mg/dL [facility] Interpretation and review of laboratory results Abnormal [facility] Potassium [Moles/Vol] 4.8 mmol/L 3.7 - 5.3 mmol/L [facility] Sodium [Moles/Vol] 139 mmol/L 135 - 144 mmol/L [facility] Urea nitrogen [Mass/Vol] 17 mg/dL 6 - 20 mg/dL [facility] Urea nitrogen/Creatinine [Mass ratio] 24 mg/mg High 9 - 20 [facility] Basic Metabolic Profon 05-01 Anion gap [Moles/Vol] 12 mmol/L Normal -17 [facility] Comment on above: Performed By: #### B LIZ, CDP #### [facility] [address] [place] [address] [place] [address] Financial Sales Consultant: Ryan Landin MD BUN/CRE Ratio 24 High 9- [facility] Comment on above: Performed By: #### B LIZ, CDP #### [facility] [address] [place] [address] [place] [address] Financial Sales Consultant: Ryan Landin MD Calcium [Mass/Vol] 10.6 mg/dL High 8.6-10.4 [facility] Comment on above: Performed By: #### B LIZ, CDP #### [facility] [address] [place] [address] Financial Sales Consultant: Ryan Landin MD Chloride [Moles/Vol] 103 mmol/L Normal 98-107 [facility] Comment on above: Performed By: #### B LIZ, CDP #### [facility] [address] [place] [address] [place] [address] Financial Sales Consultant: Ryan Landin MD CO2 [Moles/Vol] 24 mmol/L Normal 20-31 [facility] Comment on above: Performed By: #### B LIZ, CDP #### [facility] [address] [place] [address] Financial Sales Consultant: Ryan Landin MD Creatinine [Mass/Vol] 0.7 mg/dL Normal 0.7-1.2 [facility] Comment on above: Performed By: #### B LIZ, CDP #### [facility] [address] [place] [address] Financial Sales Consultant: Ryan Landin MD GFR/1.73 sq M.predicted among non-blacks MDRD (S/P/Bld) [Vol rate/Area] mL/min/{1.73_m2} Normal >60 [facility] Comment on above: Result Comment: These [...] Performed By: #### B LIZ, CDP #### [facility] [address] [place] [address] Financial Sales Consultant: Ryan Landin MD Glucose [Mass/Vol] 160 mg/dL High 70-99 [facility] Comment on above: Performed By: #### B LIZ, CDP #### [facility] [address] [place] [address] Financial Sales Consultant: Ryan Landin MD Potassium [Moles/Vol] 4.8 mmol/L Normal 3.7-5.3 [facility] Comment on above: Performed By: #### B LIZ, CDP #### [facility] [address] [place] [address] Financial Sales Consultant: Ryan Landin MD Sodium [Moles/Vol] 139 mmol/L Normal 135-144 [facility] Comment on above: Performed By: #### B LIZ, CDP #### [facility] [address] [place] [address] Financial Sales Consultant: Ryan Landin MD Urea nitrogen [Mass/Vol] 17 mg/dL Normal 6-20 [facility] Comment on above: Performed By: #### B LIZ, CDP #### [facility] [address] [place] [address] Financial Sales Consultant: Ryan Landin MD CBC with Auto Differentialon 05-01-2024 Basophils (Bld) [#/Vol] 0.07 10*3/uL [facility] Basophils/100 WBC (Bld) 1 % 0 - 2 % [facility] Eosinophils (Bld) [#/Vol] 0.08 10*3/uL [facility] Eosinophils/100 WBC (Bld) 1 % 1 - 4 % [facility] Erythrocyte distribution width (RBC) [Ratio] 13.2 % 11.8 - 14.4 % [facility] Hematocrit (Bld) [Volume fraction] 45.6 % 40.7 - 50.3 % [facility] Hemoglobin (Bld) [Mass/Vol] 15.5 g/dL 13.0 - 17.0 g/dL [facility] Immature granulocytes (Bld) [#/Vol] 0.07 10*3/uL [facility] Immature granulocytes/100 WBC (Bld) 1 % High 0 [facility] Interpretation and review of laboratory results Abnormal [facility] Lymphocytes/100 WBC (Bld) 25 % 24 - 43 % [facility] Lymphocytes/100 WBC (Bld) 1.70 % [facility] MCH (RBC) [Entitic mass] 31.6 pg 25.2 - 33.5 pg [facility] MCHC (RBC) [Mass/Vol] 34.0 g/dL 28.4 - 34.8 g/dL [facility] MCV (RBC) [Entitic vol] 92.9 fL 82.6 - 102.9 fL [facility] Monocytes/100 WBC (Bld) 9 % 3 - 12 % [facility] Monocytes/100 WBC (Bld) 0.60 % [facility] Neutrophils/100 WBC (Bld) 63 % 36 - 65 % [facility] Nucleated RBC/100 WBC (Bld) [Ratio] 0.0 % 0.0 per 100 WBC [facility] Platelet mean volume (Bld) [Entitic vol] 9.5 fL 8.1 - 13.5 fL [facility] Platelets (Bld) [#/Vol] 255 10*3/uL [facility] RBC (Bld) [#/Vol] 4.91 10*6/uL 4.21 - 5.7 7 m/uL [facility] Segmented neutrophils/100 WBC (Bld) 4.18 % [facility] WBC other (Bld) [#/Vol] 6.7 [facility] CBC with Diffon 05-01-2024 Abs. Basophil 0.07 k/uL Normal 0.00-0.20 [facility] Comment on above: Performed By: #### B LIZ, CDP #### [facility] [address] [place] [address] [place] [address] Financial Sales Consultant: Ryan Landin MD Abs.Imm.Granulocyte 0.07 k/uL Normal 0.00-0.30 [facility] Comment on above: Performed By: #### B LIZ, CDP #### [facility] [address] [place] [address] [place] [address] Financial Sales Consultant: Ryan Landin MD Abs.Neutrophil (Seg) 4.18 k/uL Normal 1.50-8.10 [facility] Comment on above: Performed By: #### B LIZ, CDP #### [address] [place] [address] Financial Sales Consultant: Ryan Landin MD Basophils/100 WBC (Bld) 1 % Normal 0-2 [facility] Comment on above: Performed By: #### B LIZ, CDP #### [address] [place], [facility]83 Financial Sales Consultant: Ryan Landin MD Eosinophils (Bld) [#/Vol] 0.08 10*3/uL Normal 0.00-0.44 [facility] Comment on above: Performed By: #### B MP, CDP #### [address] [place], [facility]83 Financial Sales Consultant: Ryan Landin MD Eosinophils/100 WBC (Bld) 1 % Normal 1-4 [facility] Comment on above: Performed By: #### B LIZ, CDP #### [address] [place], [facility]83 Financial Sales Consultant: Ryan Landin MD Erythrocyte distribution width (RBC) [Ratio] 13.2 % Normal 11.8-14.4 [facility] Comment on above: Performed By: #### B LIZ, CDP #### [address] [place], [facility]83 Financial Sales Consultant: Ryan Landin MD Hematocrit (Bld) [Volume fraction] 45.6 % Normal 40.7-50.3 [facility] Comment on above: Performed By: #### B LIZ, CDP #### [address] [place], [facility]83 Financial Sales Consultant: Ryan Landin MD Hemoglobin (Bld) [Mass/Vol] 15.5 g/dL Normal 13.0-17.0 [facility] Comment on above: Performed By: #### B LIZ, CDP #### [address] [place], [place] [id number] Financial Sales Consultant: Ryan Landin MD Immature granulocytes/100 WBC (Bld) 1 % High 0 [facility] Comment on above: Performed By: #### B MP, CDP #### [address] [place], [facility]83 Financial Sales Consultant: Ryan Landin MD Lymphocytes (Bld) [#/Vol] 1.70 10*3/uL Normal 1.10-3.70 [facility] Comment on above: Performed By: #### B LIZ, CDP #### [address] [place], [place] [id number] Financial Sales Consultant: Ryan Landin MD Lymphocytes/100 WBC (Bld) 25 % Normal 24-43 [facility] Comment on above: Performed By: #### B LIZ, CDP #### [address] [place] [address] Financial Sales Consultant: Ryan Landin MD MCH (RBC) [Entitic mass] 31.6 pg Normal 25.2-33.5 [facility] Comment on above: Performed By: #### B LIZ, CDP #### [address] [place] [address] Financial Sales Consultant: Ryan Landin MD MCHC (RBC) [Mass/Vol] 34.0 g/dL Normal 28.4-34.8 [facility] Comment on above: Performed By: #### B LIZ, CDP #### [address] [place], [place] [id number] Financial Sales Consultant: Ryan Landin MD MCV (RBC) [Entitic vol] 92.9 fL Normal 82.6-102.9 [facility] Comment on above: Performed By: #### B LIZ, CDP #### [address] [place], [place] [id number] Financial Sales Consultant: Ryan Landin MD Monocytes (Bld) [#/Vol] 0.60 10*3/uL Normal 0.10-1.20 [facility] Comment on above: Performed By: #### B LIZ, CDP #### [address] [place] [address] Financial Sales Consultant: Ryan Landin MD Monocytes/100 WBC (Bld) 9 % Normal 3-12 [facility] Comment on above: Performed By: #### B MP, CDP #### [facility] [address] [place], [place] [id number] Financial Sales Consultant: Ryan Landin MD Neutrophil (Seg) 63 % Normal 36-65 [facility] Comment on above: Performed By: #### B MP, CDP #### [facility] [address] [place], [place] [id number] Financial Sales Consultant: Ryan Landin MD NRBC Automated 0.0 per 100 WBC Normal 0.0 [facility] Comment on above: Performed By: #### B LIZ, CDP #### [address] [place], [place] [id number] Financial Sales Consultant: Ryan Landin MD Platelet mean volume (Bld) [Entitic vol] 9.5 fL Normal 8.1-13.5 [facility] Comment on above: Performed By: #### B MP, CDP #### [address] [place], [place] [id number] Financial Sales Consultant: Ryan Landin MD Platelets (Bld) [#/Vol] 255 10*3/uL Normal 138-453 [facility] Comment on above: Performed By: #### B MP, CDP #### [address] [place], [place] [phone] Financial Sales Consultant: Ryan Landin MD RBC (Bld) [#/Vol] 4.91 10*6/uL Normal 4.21-5.77 [facility] Comment on above: Performed By: #### B MP, CDP #### [address] [place], [place] [address]183 Financial Sales Consultant: Ryan Landin MD WBC (Bld) [#/Vol] 6.7 10*3/uL Normal 3.5-11.3 [facility] Comment on above: Performed By: #### B MP, CDP #### [facility] [address] [place] [address] Financial Sales Consultant: Ryan Landin MD EKG 12 LeadOrdered By: Zheng Anderson on 05-01-2024 Atrial Rate 75 BPM [employer] Work Phone: P [place] 70 degrees [employer] Work Phone: P-R Interval 158 ms [employer] Work Phone: Q-T Interval 390 ms [employer] Work Phone: QRS Duration 86 ms [employer] Work Phone: QTc Calculation (Bazett) 435 ms [employer] Work Phone: R Cheswick 83 degrees [employer] Work Phone: T [place] 58 degrees [employer] Work Phone: Ventricular Rate 75 BPM [email or web address] Work Phone: [employer] Work Phone: EKG 12 Leadon 05-01-2024 Normal sinus rhythm with sinus arrhythmia Normal ECG When compared with ECG of 16-MAY-2022 17:35, No significant change was found Confirmed by COCO ANDERSON ([id number]) on 05/01/2024 12:05:02 PM [facility] Coco Anderson MD - 05/01/2024 Normal sinus rhythm with sinus arrhythmia Normal ECG When compared with ECG of 16-MAY-2022 17:35, No significant change was found Confirmed by COCO ANDERSON ([id number]) on 05/01/2024 12:05:02 PM [employer] US KIDNEYS BLADDERon 023 US KIDNEYS BLADDER [...] by: ERIKA HUMPHREY Date: 2023-03-14 10:06 Normal [facility] US KIDNEYS BLADDER Sirigen Other US SINGLE QUAD RT UPPERon US [...] by: ERIKA HUMPHREY Date: 2023-03-14 10:04 Normal [facility] A1C with Estimated Average G luon 02-08-2023 A1C with Estimated Average Glu Sirigen Other BILIRUBIN CONJUGATED (DIRECT )on 02-08-2023 BILI, CONJUGATED 0.1 mg/dL Normal 0.0-0.[address] [facility] Comment on above: Performed By: #### P HOS, MG, DBIL, LIPID, VALP, CMP #### [facility] [address] [place] [address] Dr. Pam Granger CBC AUTO DIFFon 02-08-2023 BASO # 0.0 103/ul Normal 0.0-0.1 [facility] Comment on above: Performed By: #### C BC #### [facility] [address] [place] [address] [address] Pam Granger Basophils/100 WBC (Bld) 0.9 % Normal 0.2-2.0 [facility] Comment on above: Performed By: #### C BC #### [facility] [address] [place] [address] Dr. Pam Granger EO # 0.1 103/ul Normal 0.0-0.7 [facility] Comment on above: Performed By: #### C BC #### [facility] [address] [place] [address] Dr. Pam Granger Eosinophils/100 WBC (Bld) 2.1 % Normal 0.9-7.0 [facility] Comment on above: Performed By: #### C BC #### [facility] [address] [place] [address] Dr. Pam Granger Erythrocyte distribution width (RBC) [Ratio] 13.5 % Normal 11.0-15.0 [facility] Comment on above: Performed By: #### C BC #### [facility] [address] [place] [address] Dr. Pam Granger Hematocrit (Bld) [Volume fraction] 43.8 % Normal 42.0-54.0 [facility] Comment on above: Performed By: #### C BC #### [facility] [address] [place] [address] Dr. Pam Granger Hemoglobin (Bld) [Mass/Vol] 15.0 g/dL Normal 14.0-18.0 [facility] Comment on above: Performed By: #### C BC #### [facility] [address] [place] [address] Dr. Pam Granger IG # 0.04 10e3/ul Critically high 0.00-0.03 [facility] Comment on above: Performed By: #### C BC #### [facility] [address] [place] [address] Dr. Pam Granger IG % 0.9 % Critically high 0.0-0.5 [facility] Comment on above: Performed By: #### C BC #### [facility] [address] [place] [address] Dr. Pam Granger LYMPH # 1.5 103/ul Normal 1.2-3.8 [facility] Comment on above: Performed By: #### C BC #### [facility] [address] [place] [address] Dr. Pam Granger Lymphocytes/100 WBC (Bld) 34.9 % Normal 20.5-60.0 [facility] Comment on above: Performed By: #### C BC #### [facility] [address] [place] [address] Dr. Pam Granger MANUAL DIFF REQ NO Normal [facility] Comment on above: Performed By: #### C BC #### [facility] [address] [place] [address] Dr. Pam Granger MCH (RBC) [Entitic mass] 31.2 pg Normal 25.9-34.0 [facility] Comment on above: Performed By: #### C BC #### [facility] [address] [place] [address] Dr. Pam Granger MCHC (RBC) [Mass/Vol] 34.2 g/dL Normal 29.9-35.2 [facility] Comment on above: Performed By: #### C BC #### [facility] [address] [place] [address] Dr. Pam Granger MCV (RBC) [Entitic vol] 91.1 fL Normal 80.0-94.0 [facility] Comment on above: Performed By: #### C BC #### [facility] [address] [place] [address] Dr. Pam Granger MONO # 0.6 103/ul Normal 0.3-0.8 [facility] Comment on above: Performed By: #### C BC #### [facility] [address] [place] [address] Dr. Pam Granger Monocytes/100 WBC (Bld) 12.6 % Critically high 1.7-12.0 [facility] Comment on above: Performed By: #### C BC #### [facility] [address] [place] [address] Dr. Pam Granger NEUT # 2.1 103/ul Normal 1.4-6.5 [facility] Comment on above: Performed By: #### C BC #### [facility] [address] [place] [address] Dr. Pam Granger Neutrophils/100 WBC (Bld) 48.6 % Normal 43.0-75.0 [facility] Comment on above: Performed By: #### C BC #### [facility] [address] [place] [address] Dr. Pam Granger Platelet mean volume (Bld) [Entitic vol] 9.0 fL Critically low 9.5-13.5 [facility] Comment on above: Performed By: #### C BC #### [facility] [address] [place] [address] Dr. Pam Granger PLT 238 103/ul Normal 150-450 [facility] Comment on above: Performed By: #### C BC #### [facility] [address] [place] [address] Dr. Pam Granger RBC 4.81 106/ul Normal 4.70-6.10 [facility] Comment on above: Performed By: #### C BC #### [facility] [address] [place] [address] Dr. Pam Granger WBC 4.4 103/ul Normal 4.0-11.0 [facility] Comment on above: Performed By: #### C BC #### [facility] [address] [place] [address] Dr. Pam Granger DEPAKENE/ VALPROIC ACIDon DEPAKENE 54.5 ug/ml Normal 50.0-100.0 [facility] Comment on above: Performed By: #### A 1C #### [facility] [address] [place] [address] Dr. Pam Granger GLYCOHEMOGLOBIN A1Con 2022 ADA RECOMMENDATION SEE BELOW Normal [facility] Comment on above: Result Comment: ADA RECOMMENDED LIMIT 4.0 - 6.0 ADA THERAPEUTIC TARGET < 7.0 ACTION SUGGESTED > 7.0 Performed By: #### A 1C #### [facility] [address] [place] [address] Dr. Pam Granger Glucose [Mass/Vol] 174 mg/dL Normal [facility] Comment on above: Performed By: #### A 1C #### [facility] [address] [place] [address] Dr. Pam Granger HbA1c (Bld) [Mass fraction] 7.7 % Critically high 4.5-6.2 [facility] Comment on above: Performed By: #### A 1C #### [facility] [address] [place] [address] Dr. Pam Granger LIPID PROFILEon 02-08-2023 CHOL-HDL RATIO NORM SEE BELOW Normal [facility] Comment on above: Result Comment: 3.3 - 4.4 LOW RISK 4.4 - 7.1 AVERAGE RISK 7.1 - 11.0 MODERATE RISK >11.0 HIGH RISK Performed By: #### P HOS, MG, DBIL, LIPID, VALP, CMP #### [facility] [address] [place] [address] Dr. Pam Granger Cholesterol [Mass/Vol] 163 mg/dL Normal <=200 [facility] Comment on above: Performed By: #### P HOS, MG, DBIL, LIPID, VALP, CMP #### [facility] [address] [place] [address] Dr. Pam Granger Cholesterol in HDL [Mass/Vol] 50 mg/dL Normal 40-60 [facility] Comment on above: Performed By: #### P HOS, MG, DBIL, LIPID, VALP, CMP #### [facility] [address] [place] [address] Dr. Pam Granger Cholesterol in LDL [Mass/Vol] 83.6 mg/dL Normal [facility] Comment on above: Performed By: #### P HOS, MG, DBIL, LIPID, VALP, CMP #### [facility] [address] [address] [address] Pam Granger Cholesterol.total/C holesterol in HDL [Mass ratio] 3.3 {ratio} Normal [facility] Comment on above: Performed By: #### P HOS, MG, DBIL, LIPID, VALP, CMP #### [facility] [address] [address] [address] Pam Granger HDL NORMAL > or = 60 mg/dl - LOW CARDIOVASCULAR RISK <40 mg/dl - HIGH CARDIOVASCULAR RISK Normal [facility] Comment on above: Performed By: #### P HOS, MG, DBIL, LIPID, VALP, CMP #### [facility] [address] [address] [address] Pam Granger LDL CALC NORMAL SEE BELOW Normal [facility] Comment on above: Result Comment: <100 mg/dl OPTIMAL 100 - 129 mg/dl NEAR OR ABOVE OPTIMAL 130 - 159 mg/dl BORDERLINE HIGH 160 - 189 mg/dl HIGH >190 mg/dl VERY HIGH Performed By: #### P HOS, MG, DBIL, LIPID, VALP, CMP #### [facility] [address] [address] [address] Pam Granger Triglyceride [Mass/Vol] 147 mg/dL Normal <=150 [facility] Comment on above: Performed By: #### P HOS, MG, DBIL, LIPID, VALP, CMP #### [facility] [address] [address] [address] Pam Granger VLDL CALC 29.4 mg/dL Normal [facility] Comment on above: Performed By: #### P HOS, MG, DBIL, LIPID, VALP, CMP #### [facility] [address] [address] [address] Pam Granger MAGNESIUMon 02-08-2023 Magnesium [Mass/Vol] 2.0 mg/dL Normal 1.8-2.4 [facility] Comment on above: Performed By: #### A 1C #### [facility] [address] [address] [address] Pam Granger PHOSPHORUSon 02-08-2023 Phosphate [Mass/Vol] 3.4 mg/dL Normal 2.6-4.7 [facility] Comment on above: Performed By: #### P HOS, MG, DBIL, LIPID, VALP, CMP #### [facility] [address] [place] [address] Dr. Pam Granger PROF 14(COMP METB)on 023 Albumin [Mass/Vol] 4.0 g/dL Normal 3.4-5.0 [facility] Comment on above: Performed By: #### A 1C #### [facility] [address] [place] [address] Dr. Pam Granger Albumin/Globulin [Mass ratio] 1.2 {ratio} Normal [facility] Comment on above: Performed By: #### A 1C #### [facility] [address] [place] [address] Dr. Pam Granger ALP [Catalytic activity/Vol] 69 U/L Normal 46-116 [facility] Comment on above: Performed By: #### A 1C #### [facility] [address] [place] [address] Dr. Pam Granger ALT [Catalytic activity/Vol] 17 U/L Normal 16-63 [facility] Comment on above: Performed By: #### A 1C #### [facility] [address] [place] [address] Dr. Pam Granger Anion gap [Moles/Vol] 19.7 mmol/L Normal [facility] Comment on above: Performed By: #### A 1C #### [facility] [address] [place] [address] Dr. Pam Granger AST [Catalytic activity/Vol] 11 U/L Critically low 15-37 [facility] Comment on above: Performed By: #### A 1C #### [facility] [address] [place] [address] Dr. Pam Granger Bilirubin [Mass/Vol] 0.3 mg/dL Normal 0.2-1.0 [facility] Comment on above: Performed By: #### A 1C #### [facility] [address] [place] [address] Dr. Pam Granger Calcium [Mass/Vol] 9.8 mg/dL Normal 8.5-10.1 [facility] Comment on above: Performed By: #### A 1C #### [facility] [address] [place] [address] Dr. Pam Granger Chloride [Moles/Vol] 106 mmol/L Normal 98-107 [facility] Comment on above: Performed By: #### A 1C #### [facility] [address] [place] [address] Dr. Pam Granger CO2 [Moles/Vol] 24.4 mmol/L Normal 21.0-32.[address] [facility] Comment on above: Performed By: #### A 1C #### [facility] [address] [place] [address] Dr. Pam Granger Creatinine [Mass/Vol] 0.78 mg/dL Normal 0.70-1.30 [facility] Comment on above: Performed By: #### A 1C #### [facility] [address] [place] [address] Dr. Pam Granger EGFR-AF CITIZEN [place] >60 Normal >=[address] [facility] Comment on above: Performed By: #### A 1C #### [facility] [address] [place] [address] Dr. Pam Granger EGFR-NON AF CITIZEN OF [place] >60 Normal >=60 [facility] Comment on above: Performed By: #### A 1C #### [facility] [address] [place] [address] Dr. Pam Granger Globulin (S) [Mass/Vol] 3.4 g/dL Normal [facility] Comment on above: Performed By: #### A 1C #### [facility] [address] [place] [address] Dr. Pam Granger Glucose [Mass/Vol] 162 mg/dL Critically high 74-106 [facility] Comment on above: Performed By: #### A 1C #### [facility] [address] [place] [address] Dr. Pam Granger Potassium [Moles/Vol] 4.1 mmol/L Normal 3.5-5.1 [facility] Comment on above: Performed By: #### A 1C #### [facility] [address], [place] [address] Dr. Pam Granger Protein [Mass/Vol] 7.4 g/dL Normal 6.4-8.2 [facility] Comment on above: Performed By: #### A 1C #### [facility] [address], [place] [address] Dr. Pam Granger Sodium [Moles/Vol] 146 mmol/L Critically high 136-145 [facility] Comment on above: Performed By: #### A 1C #### [facility] [address] [place], [place] [address] Dr. Pam Granger Urea nitrogen [Mass/Vol] 9.0 mg/dL Normal 7.0-18.0 [facility] Comment on above: Performed By: #### A 1C #### [facility] [address] [address] [address] Pam Granger Urea nitrogen/Creatinine [Mass ratio] 11.5 mg/mg Normal [facility] Comment on above: Performed By: #### A 1C #### [facility] [address], [place] [address] Dr. Pam Granger TSHon 02-08-2023 TSH 3.967 uIU/mL Critically high 0.358-3.740 uIU/mL Sirigen Other TSH see note [employer] Other TSH 3.967 uIU/mL Critically high 0.358-3.740 [facility] Comment on above: Performed By: #### A 1C #### [facility] [address] [place], [place] [address] Dr. Pam Granger XR CHEST 2 Von 02-08-2023 XR CHEST 2 V EXAM: XR CHEST 2 V HISTORY: Dyspnea COMPARISON: None. TECHNIQUE: PA and lateral views of the chest. FINDINGS: The cardiomediastinal silhouette is normal. No focal consolidation is identified. There is no pneumothorax. No pleural effusion is noted. The osseous structures are intact. IMPRESSION: No acute cardiopulmonary process. Electronically authenticated by: MINA LE Date: 2023-02-08 09:39 Normal [facility] Patient Letter FTMCon 2022 Patient Letter [facility] January 16, 2023 HARI THORNTON [address] [id number] [place] HARI Veliz 1975 Below is a summary of the [...] letter prior to your next due date. [facility] [phone] Normal [facility] Reminderson 01-16-2023 Reminders - From: Deonna Russo I To: [facility] - Reminders/Recalls; Sent: 01/16/2023 12:29:41 EST Show [...] tubular adenoma and severe diverticulosis (2027). Normal [facility] IntraOperative Documentson 0 01-09-2023 IntraOperative Documents [id number] #1.00CD:127 Normal [facility] Coding Summary.on 01-07-2023 Coding Summary. CD:[id number] Gh0bWw+PGhlYWQ+PE1FV JCgV87rcGUrfV8FE5zNM J2KOEEXCJDKEZ4URK2cq IK2ENxtM6NhcaZl CbgenBXcNL51PMq3EKO4 vKlfSQoioO5vcNZzP1u5 XwYjIO92lP55QGoaCKQm OlJ5HlOiitzdqUIx A6vqZxOrlHJiLvv+PHRh YmxlIHdpZHRoPScxMDAl GtWmvOacRM7wMc3zUZRx LWNvbGxhcHNlOiBj z8kdXMKaPOyvHJ0ybHrq M7WurTJ0NSUkc5y5Na16 dHI+JKKeHTI5fBsyJOpl i669KlEvg9pbUIX4 bYSkHUmqSWQ9C71vy3L5 DBFxPXQoMOX6uGL8nX7s mKlbuihmZ9XpnTTxLjW7 ZKE6xTYtcT9ezKij zfubdJ8pXzh+K24AEI5O WBFKLQ5GKna5K0MhOxqy dHI+TH52IWRiXT85gBBp yEApp5xxdLl3XyMh JULkXDL6dFrfMQcfa5Ed CCBeU05icZQlz4A8PKFw iYdnuWFzDvUxcEV4aS1q XEtaaayms4hftvyb Kpdcf7hfud12pH04G74n JZssNMOkPVL5VPKwYDTh wDmrco1bxI4jKx2+IDxj b2lik4xyzPt8LbJj CNPxndMgdSjzBRJ6j9Wr Ws29H9AfpUnnf7EpXwk5 ey86hFYuo6P8kFC7VIdb QNYwoX7pPGijRzS0 JMDvBcZcxC89gNWaLDfh Fz9mvKcqdHtsDH7hSNCg lhluNTGfpG4yENMupCNd fKxbKS7sCKTorkem l307GgTyUQU0WMTfdIBn B8AgpW1zHbDlFLRePZYk P6JihOMcMYgrW667OAhg ZlN6TVQxzfPyV7Gw LEVvrMtdMiY9a1K8Hh0N l9OqdrrwBGJ6SVpnCDBn AsZgYxPjHfU5B0QiVdo4 UUIbjEseQV6mH9Tq NJLiogksqloueTF6GBZt YRUrxD71xXKaBEhqXb7n d4J5m503WDBsQMZckA94 Nk3nhXvlGMEeaMMZ eR5oitmmz2zqtcfaAsWp PRDaUIg4HNm7PFDsoSrl AqWdTRQ7BfB2SDR3lHLf jC4nsMivyulcaZ5f Oyc+L78esZ9zRFI0ZUO0 pcnwZWPtauReJH46HE21 Y8RsUfovmLZceOM+PGRp vhVwlTyhZT4aXeQk c6riz8QdYAkpM2FvMRBq NYolDaj3IOToAUB3fQN9 zG2fQYDdZHgnl7T2fHG0 N3CczfKzsh3tt0ts SXLlXZhcC04cbHOso6I0 YENpsGT5ORPwxQadYjXl pG77Jre+TQBgdUfzr3Zp Mvavj1teb9lbrJq3 IjMwJSIgdmFsaWduPSJ0 o8AaJq25L19dTOcvSFHh GTAlMYSkSXPzvPdkji9z xO3yYp2+PGNvbCB3 oIH5oO1gZUQiMdZ9DLfe C528OjBkmOHsQijhv8sl l5xnjWx6WaHqNVWuvoXe gFloYVF7x8SxEf33 C54dILjrVEAdJHDoUCKi TGBjcZdnob9kmA5xSn1+ ZW7sy2jfdk71jH13iQV+ ODRlVWE3qJqrFSfj LFDtmT3tWKpyTcW2YRXc DiWnqY04eEYxTIwxSf0r aEolrDzrTO1pURGaccdt j018StYug3efCYKm aZWnUUwnORC9K14ka3X8 EZRcBQIqHIX3nNM7oA9l bGlnbjogbGVmdDsgdmVy cZjeOTgwJGreW423 IHRvcDsnPlBhdGllbnQg EuVbGIl6V1OhTgj3UJIy fGlyGB8rlUFyWFhuIa7t lYoskUpcLN1yFWCl pkafd546JcSim9avQIEa hCKhYCqyIKT8M69em1R4 AOHqZFSdZAR4sTP3vN5k bGlnbjogbGVmdDsg qzBciXomJPqxRTbjM347 IHRvcDsnPkJpcnRoIERh fTQ9VS62CB94kHSqq2A7 aVX0S0BnRLTsnrdo zbracBS8FKTuFJRyvU13 Tt6pfSovQw4iSNZzAZZ8 PEZakUOyF5FusE1nOvOq DSPfGZQpZ4HlbFIt SWvoY485USzqBtV1OFCj xaEqU7OiIDEjoAwdZcG8 u0M0Tz1XB2V1ZO14XC11 cMDhr8Z1cKA1X1Ol XUHlummyzznkmVQ7FBUd LFHuuA69Oa8olRdnDx0b WRQnBLX6DCYujMZmG9Cu aH1bBbUnQVQtAEXf F6GvsVDmKGgwC442ETih DzN1CEHskdAaG7DmWBRr kCbmDyO7a3Q8Zn6HGPe6 MO18BL77bBJsi2Q0 iNR8J1WwQPSkszmzrcbg bUJ3ZTTfZPHwsB45Ka8o cMeyYy8rIKLbPBD5NCZj xYLxN7XnlN9pXnUl ISXtKNVaJ0SedMNoULrl W798LIcoMtH4SLJpuhGj D8IuRSTghUzrDpQ8d6Q5 Ih7WVOHwTT29KZC9 bGE5LO98UI93O4FnTmga dGFibGU+PHRhYmxlIHdp ZHRoPScxMDAlJyBzdHls NK3lJh5dMPLvWISx iVidcTWfRsNqh6yiAPGs PVzvEH9msJfhX1RvvIR2 IDQbp7q2Qr81N98lL7Ub dXA+JVBfgJB3rSG0 rU7fHoRjHdG4UWtlH841 NpSbvVBvLjzlw2hlm0yb rBc9ZuY2NZRdckJuzBod UYP4j7TcEh83K87o IHdpZHRoPSIxNSUiIHZh zJipcl9noS6bPj9+PGNv yUR7eZK3jG6jIoSyWuS9 ITutU257VfGumTEl Tjoke0iij7uxmWa1QvUw ZZWfpoVnaXmzASP3o7Gv Ou90C3OdaSkqg1NtQre5 vk42eXKml9J4pAF3 O6QuTGPautjmsOWgsGca XX2bKVYahmvbLJNlrH5m WWKjU3p3NtUsSuV9HKfy H7QpidL6MTUnjWHj OEkiMMX2R96rl4D3TMXp ELHgYSL8zEN5pG7iyVba bjogbGVmdDsgdmVydGlj EJxvGCdhA067YZGd pTiuLLPjfH3uXYDebDTk fLamKT0oSXHcoiwbZhdZ XN9EIRQQSXqBFKSBFWY1 P5KiMat6WQJulYmt PP0gwLDiSWrsYf0kzDku gXcgIB5oITRpfewhRWWu qB2oAFQwsWIslKyxVG1g TVFnwavyn567HnSp BWJ7RYTnmBHwE4CviJ7k DgSiTJQdYMVhE5CdiKBb APggE387JLvrUcO5ZWKm viFkB3VzDOFjwCrr JuM2m8C9Uw7sUC9eBJ3a DHnuBE92CI80sAPyw0U7 pKB6U7EbTJRidmtxnfwp wIQ7GHXtIYDdbR79 bXGiAMqyDw0jb3V7g995 FEKsDFDfbN05Nr2cjWer JSFdlJVOsC0ytkikw6ya cjogIzAwMDAwMDt0 JBj3TTQzwScuKzUrJEP6 LgJ2DXW9tSAzoK0kwTuu qimkgV5oFvx+NDkgWWVh alB2E7GsSqv9AJYk iEemTN0bjPXpNVguVc1m zLunwPvlQG2bJSBndlzn CPVkrR1kDWMjrHBfrDhk KF8lAZCsdzvuc456 RjSzDQX3GXObhLVgY2Le jD7vPsHyROVtUOXsA2Ke zIIpTWsiE696CJudZkJ0 WHAkzpEgT6EfKTEa lRuhVpZ1o1X8Wt4CURzq AV76BO65bZNgl2D3aEP8 U3VpWZQxrffalypgvEB8 WGHtCLVzyL48sIVv HRmyEz5pf4Y3c028UGRi EEAbnG49De6ujMkhZLBc oDXOnG7qbkwxl8gmlqva RpOgUDSaHGq8JLg6 MEKvuLovGnVpKPL1AzN9 IUF6sVLhrA2snFjcqckc dY1aOgf+P5L8iXX4nNQx dDwvdGQ+CN35zv10 I5JjLmtnRcx5YKQmRAC6 fPC6tF1hZHOhRJdpl0G2 yPG8A8WgxbSmjb2xz4by TEQzKYtgA92rxFWw v2N6IRCskDC8MJMdxSgu QgSokM45Mng+PGNvbGdy i4YxDfwxv3tbe3wrdQh3 IjMwJSIgdmFsaWdu JDG1q9LvLx60S57bSMia ZHRoPSIzMCUiIHZhbGln oo4zzR9lOo5+PGNvbCB3 lJP1tI4kIwCnGxM0 GPigO219FjAvjHKkLmox l8lqb6pbgGp8KwNdTWTr upZxoXafQVT6q2LxYz97 B2PfvDeli2XqLrr3 bn61kYHxo5P0gVT9C5Uu AMPbfivceTDvoFobSM9r ZTRaynwsOOWhtT7pCSMo W2c7AyLyUxT5ELmd J4AhdsW0JXAmwZDjZXTn jZSZbX3habndb8vdutkm ViGxURXoYIc6LBz0GHQm qOmiQySbXFQ7DfO6 ZYU3wORkwT1hhGmanwxv nJ4pSat+UTz1e9wnqHFz WQ6plAX5JD97RP36qVDq d3I2xPV4X8StMARw kfzwuxwthXX4EPOnGCRl sO79Yb1cdDfsLq0qXDAa VIW3FFHblEKjT1KckS6w MnKaXIQvCDHrF2Ym sFRtWByzO688NRyiOtJ8 HRPjmfCwM9KdEWGimXkx MeV9n3L1Ny2GEN51JQ38 YA17pEAkq4O7xDX2 O0KiNODfkbcvzugiiHS3 EJJcQAUlhD09Ed4vxLyo Wb1oVOXjNSV6RNXjiJJr R8VtpA4kRlYpKXBz GMByO8XlaOOhEDmwF803 KRyoJrD3EJQnwdLdZ8Vj HEDovNhpYfI8b6H7Of6J Av33ZG18DJ54aAVh n6Y5eVS9Q3GwMAPwldis sogoqSA0QTSjZRMnbA11 Pf2scIswRx3pWEIiEDV7 QDUjiRYaI0OrdF8f VdUsJDFvWMXvU3CycDNh ARbtL105EMnoEoE0HHAh mzPkQ0FzXWDeqXdhAnV2 m4T8Ss4SFUilrgn7 R1HfGafkdCM+MZ45PLWe KG83oZDtdRCrw2cnuQe1 HwFeANBmVCJ9sLhwVSxz q4JqZOXzL46ogXZy c2U6 (more content not included)... Normal [facility] Postoperative Documentson Postoperative Documents [id number] 7#1.00CD:127 [facility]enton 01-03-2023 Consent [id number] 9#1.00CD:127 [facility] Discharge Instructionson Discharge Instructions [id number] 7#1.00CD:127 [facility] IntraOperative Documentson 0 01-03-2023 IntraOperative Documents [id number] 2#1.00CD:127 [facility] Main OR Intraoperative Recor don 01-03-2023 Main OR Intraoperative Record IntraOp Document Type FT Summary Primary Physician: Sylvester FITZPATRICK MD Finalized Date/Time: 01/03/23 09:19:49 Pt. Name: HARI THORNTON/Sex: 1975 Male Med Rec #: [id number] Physician: Sylvester FITZPATRICK MD Financial #: [id number] Pt. Type: O Room/Bed: / Admit/Disch: 01/02/23 11:32:43 - 01/02/23 23:59:59 Institution: Case Times FT Entry 1 Patient Times In Room 01/02/23 12:23:00 Out Room 01/02/23 12:49:00 Procedure Times Start 01/02/23 12:30:00 Stop 01/02/23 12:47:00 Anesthesia Times Start 01/02/23 12:23:00 Stop 01/02/23 12:49:00 Time at [facility] 01/02/23 12:39:00 Last Modified By: Iza BANSAL, Briseida Lipscomb 01/02/23 12:50:01 General Comments: 1233 EGD completed/BARBI,RN 1235 Colonoscopy began/KS,RN 01/03/23 Chart opened to review and send charges [facility]oth CSFA Case Attendance FT Entry 1 Entry 2 Entry 3 Case Attendee Iza Sanders CRNA, RN, BriseidaChristel Barrios Role Performed MASTER PLANNER Supervisor Ovens - Primary Scrub - Primary Time In 01/02/23 12:23:00 01/02/23 12:23:00 01/02/23 12:23:00 Time Out 01/02/23 12:49:00 01/02/23 12:49:00 01/02/23 12:49:00 Procedure EGD AND COLONOSCOPY(.) EGD AND COLONOSCOPY(.) EGD AND COLONOSCOPY(.) Comments Dr. Ramey supervising procedure. Last Modified By: Ca Antoine CST RN, Briseida Agustin RN 01/03/23 09:18:58 01/02/23 [...] Applicable) PreOp Antibiotic No Time Out Marilyn MASTER PLANNER, Given Participants Iza Padilla RN, DEMETRIA Reyez MD, Eliot Phan Kirstyn K Time Out Complete [...] colon polypectomy. Primary Procedure Yes Primary Surgeon DEMETRIA ANN, Sylvester Start 01/02/23 12:30:00 Stop 01/02/23 12:47:00 Anesthesia [...] and tissue Entry 1 Skin Integrity Intact, [place], Warm, and Skin Abnormality No Dry Outcomes [...] patient f (more content not included)... Normal [facility] Consent for Treatmenton Consent for Treatment [id number] #1.00CD:127 Normal [facility] Consultation Noteon 01-02-20 Endoscopic Procedure Report - [...] 1. Proximal esophageal ring, dilated using 56 [place] dilator 2. Normal gastric mucosa, biopsied to rule out H. pylori 3. Normal duodenal mucosa Images Procedure images: [id number] g [id number]_hd_[id number] g [id number]_hd_[id number] [id number] g . Post-Procedure Complications: none. Estimated blood loss: none. Specimens: sent to pathology. Devices/ implants: none left in place. Impression and Plan 1. Proximal esophageal ring, dilated using 56 [place] dilator 2. Normal gastric mucosa, biopsied to rule out H. pylori Recommendations: Follow-up in GI clinic in 2 weeks .. Normal [facility] Comment on above: Result Comment: Elec tronically Signed By: Sylvester FITZPATRICK MD\.br\Date and Time Signed: 01/02/23 12:52 EST Other Comment: Coleen muller Attachment - attachment storage system not supported [id number] Can be viewed in source systemMissing Attachment - attachment storage system not supported [id number] Can be viewed in source systemMissing Attachment - attachment storage system not supported [id number] Can be viewed in source system Consultation [...] 1. Proximal esophageal ring, dilated using 56 [place] dilator 2. Normal gastric mucosa, biopsied to rule out H. pylori 3. Normal duodenal mucosa Images Procedure images: Rec1_hd_video_2022_0 2_08T12_34_03_[id number].truman g Rec1_hd_video_2022_0 2_08T12_33_38_671.truman g Rec1_hd_video_2022_0 2_08T12_33_53_377.truman g . Post-Procedure Complications: none. Estimated blood loss: none. Specimens: sent to pathology. Devices/ implants: none left in place. Impression and Plan 1. Proximal esophageal ring, dilated using 56 [place] dilator 2. Normal gastric mucosa, biopsied to rule out H. pylori Recommendations: Follow-up in GI clinic in 2 weeks [facility] Comment on above: Result Comment: Elec tronically Signed By: Sylvester FITZPATRICK MD\.br\Date and Time Signed: 01/02/23 12:34 EST Other Comment: Coleen muller Attachment - attachment storage system not supported [id number] Can be viewed in source systemMissing Attachment - attachment storage system not supported [id number] Can be viewed in source systemMissing Attachment - attachment storage system not supported [id number] Can be viewed in source system Endoscopic Procedure Report - Otheron 01-02-2023 Endoscopic Procedure Report - Other Patient: HARI THORNTON Age: 47 years Sex: Male : 1975 Associated Diagnoses: None Author: Sylvester FITZPATRICK MD Pre-Procedure Procedure Date 01/02/2023 12:52:00 . Procedure Type: Colonoscopy with biopsy. Procedure provider Performed by Sylvetser Fitzpatrick MD. Current history and physical Documented [...] nonbleeding internal hemorrhoids Images Procedure images: Rec1_hd_video_2022_0 2_T1_49_58_135.truman g Rec1_hd_video_2022_0 2_T12_45_32_419.truman g Rec1_hd_video_2022_0 2_T12_43_32_936.truman g Rec1_hd_video_2022_0 2_T12_45_59_605.truman g . Post-Procedure Complications: none. Estimated blood [...] Return to activities:: After 24 hours. Normal [facility] Comment on above: Result Comment: Elec tronically Signed By: Sylvester FITZPATRICK MD\.br\Date and Time Signed: 01/02/23 12:53 EST Other Comment: Coleen muller Attachment - attachment storage system not supported [id number] Can be viewed in source systemMissing Attachment - attachment storage system not supported [id number] Can be viewed in source systemMissing Attachment - attachment storage system not supported [id number] Can be viewed in source systemMissing Attachment - attachment storage system not supported [id number] Can be viewed in source system Inpatient Patient Summaryon 01-02-2023 Inpatient Patient Summary [place] [id number] [facility] Clinical Discharge Instructions PERSON INFORMATION Name: HARI THORNTON PHYSICIANS Admitting Physician: Sylvester FITZPATRICK MD Attending Physician: Sylvester FITZPATRICK MD PCP: NARAYAN GAGNON DO Discharge Diagnosis: Diarrhea Comment: PATIENT EDUCATION INFORMATION Instructions: Endoscopy, Care After Procedure [facility] (CUSTOM); Esophageal Dilatation; Colonoscopy, Care After Surgery [facility] (CUSTOM); Diverticulitis, Aabt-lh-Zudk; Colon Polyps; Hemorrhoids, Lpaz-tf-Tzyx Medication Leaflets: Follow up: With: Address: When: Sylvester Aden [address] [place], [place] [id number] Business (1) Comments: Call for any problems. [...] Mouth every day., high heart rate Comment: Justa Zack [facility] Main OR PACU I Recordon Main OR PACU I Record PACU Phase I Document Type FT Summary Primary Physician: Sylvester FITZPATRICK MD Finalized Date/Time: 01/02/23 13:17:59 Pt. Name: HARI THORNTON/Sex: 1975 Male Med Rec #: [id number] Physician: Sylvester FITZPATRICK MD Financial #: [id number] Pt. Type: O Room/Bed: / Admit/Disch: 01/02/23 [...] By: Shira Tyler RN 01/02/23 13:17 Normal [facility] Main OR Preoperative Recordo n 01-02-2023 Main OR Preoperative Record Holding Area Document Type FT Summary Primary Physician: Sylvester FITZPATRICK MD Finalized Date/Time: 01/02/23 11:55:04 Pt. Name: HARI THORNTON/Sex: 1975 Male Med Rec #: [id number] Physician: Sylvester FITZPATRICK MD Financial #: [id number] Pt. Type: O Room/Bed: / Admit/Disch: 01/02/23 11:32:43 - Institution: Case Times [facility] FT Pre-Care Text: Verifies consent for planned [...] 11:52 Stacia Camara RN 01/02/23 11:55 Normal [facility] Monitor Recordon 01-02-2023 Monitor Record [id number] 7#[id number]:127 Normal [facility] Monitor Record [id number] 8#[id number]:127 Normal [facility] Monitor Record [id number] 8#[id number]:127 Normal [facility] Outpatient Surgery Discharge Instructionon 01-02-2023 Outpatient Surgery Discharge Instruction [place] [id number] Patient Discharge Instructions PERSON INFORMATION Name: HARI THONRTON Date of : 1975 Current Date: 01/02/2023 [...] THE NEAREST EMERGENCY ROOM OR CALL 911 Nikia HARI THORNTON, have received the attached patient education materials/instructio ns and have verbalized understanding: May we do a follow up call? Yes No I was present when discharge instructions were given Patient Signature Date Clinican/Nurse Signature Date Follow up: With: Address: When: Sylvester Aden [address] [place], [place] [phone] Business (1) Comments: Call for any problems. Office will call for follow up appt Pharmacy Information: Other: [facility] You may receive a survey from [facility] asking you to rate your care experience. Your feedback is important and will help us understand what we do well and how we can improve the quality of care we provide to you, your loved ones and our community. It?s an honor to serve you. Thank you for choosing [facility] HERE ARE THE MEDICATION CHANGES THAT [...] your c (more content not included)... Normal [facility] Progress Note-Physicianon Progress Note-Physician Patient: HARI THORNTON Age: 47 years Sex: Male : 1975 Associated Diagnoses: None Author: Keyon Ramey MD Postoperative Information Postoperative disposition: Postoperative disposition: To PACU. Optimetrix number: Optimetrix number [id number]. Anesthetic utilized: Monitored anesthesia care. 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 Depression / SNOMED CT 65131610 / Confirmed Diabetes mellitus / SNOMED CT 608697132 / Confirmed Dysphagia / SNOMED CT 73429093 / Confirmed Dysuria / SNOMED CT 48195140 / Confirmed Hearing loss / SNOMED CT 07063172 / Confirmed Heart murmur / SNOMED CT 007627005 / Confirmed Heartburn / SNOMED CT 53969233 / Confirmed History of colon polyps / SNOMED CT 8598762918 / Confirmed Hydrocele / SNOMED CT 9858315966 / Confirmed Hyperlipidemia / SNOMED CT 80092357 / Confirmed Hypertension / SNOMED CT 7369993559 / Confirmed Irregular bowel habits / SNOMED CT 7528678579 / Confirmed Neoplasm of lung / SNOMED CT 397587693 / Confirmed Nocturia / SNOMED CT 258723586 / Confirmed Obstructive atelectasis / SNOMED CT 38829896 / Confirmed Post-void dribbling / SNOMED CT 323861896 / Confirmed Proteinuria / SNOMED CT 24949639 / Confirmed Psychiatric illness / SNOMED CT 592529804 / Confirmed Schizophrenia / SNOMED CT 41525703 / Confirmed Testicular swelling / SNOMED CT 4374953034 / Confirmed Type 2 diabetes mellitus / SNOMED CT 444756850 / Confirmed Urge incontinence / SNOMED CT 176627877 / Confirmed Urinary frequency / SNOMED CT 468248760 / Confirmed Urinary reflux / SNOMED CT 5059350984 / Confirmed 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 Normal [facility] Comment on above: Result Comment: Elec tronically [...] Auto 47.3 % Lymph Auto 35.8 % Dixon Auto 15.7 % HI Eos Auto 0.4 % Basophil Auto 0.8 % Neutro Absolute 1.9 E9/L LOW Lymph Absolute 1.5 E9/L Dixon Absolute 0.6 E9/L Eos Absolute 0.0 E9/L [...] 1 EA, Refill(s) 0, Prior to colonoscopy., [facility] 1622, 171, cm, 11/01/22 12:17:00 EST, Height/Length Dosing, 78.9, kg, 11/01/22 12:17:00 EST, Weight Dosing omeprazole 40 mg Cap-DR: 40 mg = 1 cap(s), Oral, Daily, X 90 day(s), # 90 cap(s), Refills(s) 0, Pharmacy: [facility] 1622, 171, cm, 11/01/22 12:17:00 EST, [...] cap(s), Ora (more content not included)... Normal [facility] Comment on above: Result Comment: Elec tronically Signed By: Tanvir ANN, Keyon Andres\.br\Date and Time Signed: 01/02/23 11:40 EST Giardia, Direct, EIAon 12-28 G. lamblia Ag IA Ql (Stl) Negative Invalid Interpretation Code Negative [facility] Comment on above: Result Comment: Perf ormed at: [facility] [address] [id number] PhD Paul Mejia Performed By: #### 1 [id number], [id number], 05770939, 52495077, 47518776, [id number] ####[facility] [address] [place] [address] O & P EXAM, ROUTINE, REFLEXo n 12-28-2022 Ova and parasites identified Concentration Nom (Stl) Comment Invalid Interpretation Code [facility] Comment on above: Result Comment: No o va, cysts, or parasites seen. One negative specimen does not rule out the possibility of a parasitic infection. Performed at: [address] [id number] PhD Paul Mejia Performed By: #### 1 [id number], [id number], 99712433, 58350738, 72868421, [id number] ####[facility] [address] [place] [address] O & P Exam, Routineon 2022 Ova and parasites identified LM Nom (Unsp spec) Final report Invalid Interpretation Code [facility] Comment on above: Result Comment: Thes e results were obtained using wet preparation(s) and trichrome stained smear. This test does not include testing for Cryptosporidium parvum, Cyclospora, or Microsporidia. Performed at: [facility] [address] [place], [place] [id number] PhD Paul Mejia Performed By: #### 1 [id number], [id number], 86311531, 92113203, 82172489, [id number] ####[place] [address] [place] [address] Coding Summary.on 12-26-2022 Coding Summary. CD:[id number] Gh0bWw+PGhlYWQ+PE1FV IJqZ47wsFEocK6MV5tHX R6HIARNXIOAMZ0YMS3la MF3SGyrO0YjjfRp IqcegGSwNP52UBa6MET7 dLwrVPiqsP8zjXDrP5m6 VjVpES21pR54TLarJTIn BaV2ZvGcszbcvBFw K7pmXiOwuIGuXfp+PHRh YmxlIHdpZHRoPScxMDAl ViBffSxcTG3lRn9hRTTw LWNvbGxhcHNlOiBj x2fjNPLpIVosOQ9srLoe P3RwrHL4LFYpw4b8Kp02 dHI+TOTjRWU8aHjqUGzf w369VfAxy6meFBV7 cMWgEBecTOH2X65rq0V1 UDAfNBZgJJK5gOF0hU5b iJlyqrxnJ7QwkWTtMtR8 AWL1lLPdeO4ooNec xsrahY0rZif+G59PFB6D JYOHYV9KSgb2P7XrFken dHI+RU89IQLmCW88tBMm tDDbs7gjqCw5OcUo MUBaDIL4dXolJVwdz7Za SRAxV10zpIPuw5Z1AGFj xUjyeWMmKzTuzDV3zL3b AVbjoeikk2tvgggu Pzcjs8dhgx59lI67B33n CPkdBIEiEVG4ZSZhPXKa tBdgfh9poW1dKd5+IDxj j2ivj4ldlHs2XzUl QSLmsbBqhRtzDGD5i8Ny Sn02I2EdrFrir7MaFcz4 di72uWGuy3T2sFL5MLdl ITUzgP0hKBckYqT4 QCXyAjTbqO16oLEcGLus Sc9nbWrqhMejDO5aRSWa pfoePOFoyG5tMGCpmKWb pAojQR7nJVRzyjqf o668QqFxILM2AIAtiELc M4HkpC8hPpNcWPGdYVXz F1IsyOAxJDmrP109SBmf ToW2RXDrytAaL3Ez IXFbwCsjIrB8s2V8Hd1J u3JoqnatOSC6UPigUNKm AfZxYsQbUpF6Q9HkDlw3 ACTnvOggGR0pJ1Fg HBVbbydnvjbooUO7VWYa ZWTgeZ34tIPsBRbxVv2o m4M9w379BTRvYOZcvP53 Oi6dqXxiSHNzjVNF fH9drtjdc1kodjgbAzZi UKFyUNw1GKw2VFSmhPmx JdJaWQJ5QiJ2DSX1kGEk dW7foFxbzgvfpF5z Oyc+J54swO6cBSL0SGX7 ofosZJEixyDnJX08RU64 F8MfJuaxtICvqWC+PGRp fxFfxTbzXP4eQnIp r0kzs4WoCKlgH0BxIUSi ZHsrDaj5QJNiDHF8fRD4 zF2fUPHxOEpln0J8nYJ7 M8StkkNbrz7jy6aa VMLnWKmbY42dsZQsw1J8 STHfhMQ2PFHwfGvxViWc fA18Znc+ZYGpbDbgd6Uc Lsxgd5cvn1suoUc2 IjMwJSIgdmFsaWduPSJ0 e0EzSx96P77lTWqxPXOn KNWwIZSuHMVvhBruhf9j dT7mVk5+PGNvbCB3 vPR6pB7hOMYdFrK8ZUyi K855QaEhxUVsQvwqr5pg y2ngfDf1CdFlLCTiaoPf kZxpWHD5c2NsVy30 Y80fJTztGCQyLEYzVZRc LNDfcXhsos1okX6oRz6+ NH5dk3sayl65wQ13vZJ+ GQLoNVN4xOviRUug KXMjdN3qLIesXqU0FUTh PzUtkZ03oFHpFAazAa7y xXzvlIdrMB8wQSCgqpdc j135OiVtq7gzCKDv jGDcMUhgXIG8T10nc8P3 UQNxSROjSNM0pVJ2lT0m bGlnbjogbGVmdDsgdmVy rDcbSYrxVDkoG851 IHRvcDsnPlBhdGllbnQg JlTcEQp7W9NaOgz3VKNo fOchBI0zfLJpJUgxBf5b pViiwLlfAH7yOSRm bpspj233XjWcg2zlSOPz qDNsZSfwMXJ2Y11tz6P3 SOFtSQAoNOT2yWG6cL6c bGlnbjogbGVmdDsg wfKenHejRTifSSfuY728 IHRvcDsnPkJpcnRoIERh kUD5FA41XX22uZFqi8V0 uPF6C3RxTPPtytcl zkxyxOS2HFRbHJPboY27 Mz1jgTqaAn8qFWAmRIT9 KFVqnLHkK2HuzT2wKiNq FZKyTACgI2RpeTBy PHsmE921RNyxEjG9UKGd saPcV2SiLPKuiXgoHuW9 s2O2Mt7RU1O9UR57LQ68 kNYcg5L9iUJ7U8Mj DKAcpamsceehlUE1IHSh WZRvsA07Ri5vhLqjGb0r FJDcRWM6CJNjzRSxN7Cc qG8yPsHrIWRzGBEt P4DmhDWuVKtpH570CUlx NxN4HVJrjbFfG8GfDFTb oFaoRwR6z5H4Td0SKWk0 XY20WR84vGHlo8H6 zES7Y1UdVTHqueryxrmq nHK1OSGwAJMquM63Sq9s iXlbYp3pKKFbILC5OSYx bAEzR3PetC5xDvGh NQLtGZVoF1AewDDxPLmq X131TFtvPnV5ZJUkirIz C5RyOPUkaNimTsQ5c8T0 Qc0XZWSnID30UQK3 kPD4HQ53YF23H3HoXssm dGFibGU+PHRhYmxlIHdp ZHRoPScxMDAlJyBzdHls QZ4jXd9jPNFiTSXq pHdghMUnNjQme6zdYNRw HYraPO8ueEzlE2DioMF4 GYXwo3t9Qh15C70bT7Ow dXA+XXDdhUM4cZW1 yE0nKrHbCzP9NLtdM537 LeEngRNpEwohr6wvx1oc eYq0BzT0YIFzlxAlmIrh JMA7j4YrXo83M69k IHdpZHRoPSIxNSUiIHZh yJtzer6yzH8wOk1+PGNv eRR0hMH5iU7zYpMbVtD5 IVuuA749PbTsuKMf Crmcl8nce6qcyZu1VtJv HSXykpQasLybSBA6e8Dt We18N1FiaWnhh1ZtErp3 jr57hUSxr6L3kYE1 S5PsUKBqutagaEAbtDad EK7zYPYrypmbMWVahB7v OPBgS6b2DmPfYtG7RDst Y7TetbN7RZKitWMs AWwnSKY2N68nx7N4PDYi ZLZhVCZ3bQI3fI8ojMaz bjogbGVmdDsgdmVydGlj YDlcCVtfK189QNTp yErsFNLhtN9aDTQqxVHi xHyuSG4wSYJkszsvRdbJ OO7PRLPWCHpCSAEAKMA2 Q4FhVhm8IRNbiLma AM1niZMjWIxqDt0baQba iVykRB3eGKFzwxscLBQi zQ0yOPFsnOOhbIkxLE4h JRFrkbjyk220TbAe BAA5MKLmtRVoO7BkyM0h FtRaZMRlZBXcS0ClxVGc ZLlxZ326ZWjiLwJ5JDGp wwLjR3NoOLXxmOem SlY2m7H2Od0mQQ0wQT6m VSlqFA87MG35gFIkt6Q7 cUQ1P0NoYCLvjwotolyy vCF5VCUrXCPwdD54 fPGeEYjhVl7ri6G3g509 LBQlXVGedV54Pg3taWrj UDTmtOPWvN5jdaedp9jd cjogIzAwMDAwMDt0 JMj8ZHVmhVnaIwXhKGZ1 VmZ4WMZ7jJGhsO5ebLst flywbD4eDhj+NDkgWWVh yqH2K3QiXfm2QJVy oUalMM7rhCRpQPukUh7a yJydvLhyHF2uNVSgqymp WMByvZ9bOOHehLLbaYsp ZE5iGMIocccnp263 UjFeZNB5LFMhjGTtH3Wu kH1nBbPkRCBbKZNqW6Hy nAIsQXeaU387RIdgQeE3 ZPYjiaJwX4AxATVx tTdtUdI7u5P1Nn7YHJtl ST91FS85fBJue2F0zFV5 W6MiXYZbxukqytmllGO2 NRDfXRSfhX68zVWr NRimRg6jc8A9m265RHXn MAEpfV27Hz4iyPwnMAAi pKIEwR4glfvbt4kyiabc ZbQoDCMoYIb6VNp1 AWSxxOyyNrPrLWQ2DoH3 BUE7sRQkbK6sdToemsih rA8vZma+VGBoAFIrw3Ml j5SpJZ82FU47B2Mw PjwvdGFibGU+PHRhYmxl IHdpZHRoPScxMDAlJyBz iUenCX7aUg5sFKSyCBHt lBtawEQvJiLfm0dj TZHhBDikDZ3nkBmiK5Ij zWU9YDVwn1c2Cg27F00x K6XkiTS+RVCnoNS5pTX8 yE5vSxRnGtM6LTja I330JwBwdBQyYllui6mm i4kjtYj3VeIfJHQimyFy eJciKBO0h0LrVp92C47i IHdpZHRoPSIyMCUi AZZtgJbrkd5kfN7rGd2+ EBBjlPS7fRD7cD5bCyFn SwD9FTpdA230UxCmzSJd JxxhT48dS1XarRQ+ KBNnWzn7KUVgaJsjOM2t pQUwPNfrHh5hYVE6ZmYb FlQbWVnvR5NlMOFxorzm yxxobPW3AAEfMVFr cU24Yu2jeDgsQu8cELTf PFY3RETbySFgQ2TsbB8w MjGpNQCvYDHdG3LhtJRe JNyyG752WIocZvE1 CEFllkCwI5BkQGVtgJif MyV8y9B6Cg3WpYadcWSe OM3gRqBlSJg2G1RwTgp3 LKGvtJinWW5rbGOv YNeiEp4ykYvpkBfcVA2n DMBirhziz223DpFcx6yu MKFiyFVfJDouXIB5H50e y3T5SOJeSCYnUKL9 pIY0bI1nkQbqvecpdBWs dDsgdmVydGljYWwtYWxp F661EWWvnYmqYyAIJbq8 Q5JzTrz8SKOarTsg FD6bvGCpVCypYh6qsDzp tJsyAR1uIDPqnotex465 AfJpu9woAFCtcGEtFVxj CJR0R89to2C6HBBc WENtYTA5eUI6oZ1muNyq bjogbGVmdDsgdmVydGlj VIneKWbsB655LRCxoYdg Ys6EZvj4M6PgZic5 CLKuxXciCU2eaVKyGAva Nt5mjRhjpTdnOO0eWOTg qpowa097DgVzh2nlYHQs sABfBYblWJS9F89e s2E4ERHoZCPfYZK0bCH6 fX2uzTkprasuiZXecCyc xxEnxLjhVCrtJOhlC095 IHRvcDsnPlBheWVy OjwvdGQ+ZG33hj33G1Bh TlfhXzh9JZUaKBM3hWB8 dU5pFAMxBXpap5X9cWG8 F4QlnuBafe9bv0hl YXBz (more content not included)... Normal [facility] Enteric Panel by PCRon 12-25 C. coli+jejuni+upsalie nsis DNA SHANEKA+non-probe Ql (Stl) Not detected Normal [facility] Comment on above: Result Comment: Test ing was performed utilizing reverse workers compensation paralegal (RT), polymerase chain reaction (PCR), and array [...] nulcleic acid test. Performed By: #### 1 [id number], 5593580304, 87172527, 31980026, 00161692, [id number] ####[facility] [address] [place] [address] E. coli stx1+stx2 genes SHANEKA+non-probe Ql (Stl) Negative [facility] Comment on above: Performed By: #### 1 6496393, [id number], 40131373, 35208719, 68037141, [id number] ####[facility] [address] [place] [address] Enteric Panel by PCR Negative [facility] Enteric Panel Intrl QC Pass [facility] Comment on above: Result Comment: Test ing was performed utilizing reverse workers compensation paralegal (RT), polymerase chain reaction (PCR), and array [...] 1 and 2. Performed By: #### 1 0839944, 2273487678, 62198867, 65830692, 49327654, [id number] ####[address] [place] [address] Norovirus genogroup I+II RNA SHANEKA+non-probe Ql (Stl) Not detected Normal [facility] Comment on above: Performed By: #### 1 0121686, 0878802324, 57596584, 15407663, 17599394, [id number] ####[address] [place] [address] Rotavirus A RNA SHANEKA+non-probe Ql (Stl) Not detected Normal [facility] Comment on above: Performed By: #### 1 7836501, 0422078796, 09997646, 12313190, 21618327, [id number] ####[place] [address] S. enterica+bongori DNA SHANEKA+non-probe Ql (Stl) Not detected Normal [facility] Comment on above: Result Comment: This test result should be correlated with clinical presentations and medical history by a healthcare provider to determine its clinical significance. Performed By: #### 1 1210673, 6319861955, 96976107, 09976559, 32786399, [id number] ####[address] [place] [address] Shigella species+EIEC invasion plasmid antigen H ipaH gene SHANEKA+non-probe Ql (Stl) Not detected Normal [facility] Comment on above: Performed By: #### 1 8376442, 6370064753, 63734365, 25900582, 54280147, [id number] ####[address] [place] [address] V. cholerae+parahaemol yticus+vulnificus DNA SHANEKA+non-probe Ql (Stl) Not detected Normal [facility] Comment on above: Performed By: #### 1 6218834, 0814118185, 80596785, 07545034, 73210561, [id number] ####[facility] [address] [place] [address] Y. enterocolitica DNA SHANEKA+non-probe Ql (Stl) Not detected Normal [facility] Comment on above: Performed By: #### 1 4188162, 4225056087, 44176046, 52756215, 89620884, [id number] ####[facility] [address] [place] [address] C. Difficile PCRon C. Difficile PCR Unable to perform test due to consistency of stool. C. Difficile testing will only be performed on diarrheal (unformed) stool unless ileus due to C. difficile is expected. Reference: Clinical Practice Guidelines for Clostridium difficile Infection in Adults, Infection and Hospital Epidemiology March 2010, Vol 31, No 5. Normal [facility] Cdiff Specimen Acceptable Unacceptable Normal [facility] Comment on above: Performed By: #### 1 4950313, 4727797710, 20210401, 56180056, 32877994, [id number] #### [facility] [address] [place] [address] Order Cancelled YES Normal [facility] Comment on above: Performed By: #### 1 0596833, [id number], 06708801, 90607091, 40888391, [id number] #### [facility] [address] [place] [address] Fecal WBC Lactoferrinon 11-27 Fecal WBC Lactoferrin Negative Normal Negative [facility] Comment on above: Result Comment: The semi-quantitative detection of elevated levels of fecal lactoferrin is a marker for fecal leukocytes and an indication of intestinal inflammation. Performed By: #### 1 9191496, 8567293299, 66055901, 26568092, 45430095, 1077589001 #### [facility] [address] [place] [address] [place] [address] Coding Summary.on 11-06-2022 Coding Summary. [id number] Gh0bWw+PGhlYWQ+PE1FV ADcS14mlBDvsE0HC9dXR N3YBDZWIQSLBJ1FNE7ho JC9QIubP6VlycPi LqohcEMzOA03ETr6HZC3 fHfiDLubfB7eoPHpO7j3 BpTvUW93yB72KWckJBJz CaV6YcNjapbxpMIt B8ejDtVntQWvRxr+PHRh YmxlIHdpZHRoPScxMDAl XfWrpVufTY3oBt9iSMLd LWNvbGxhcHNlOiBj x8sfSWRlQFvmTU3cgAna S4YmaVF4RSJfj3z1Zg55 dHI+WLJkVYX3wHdwROlw i189RaKif3mfUYR6 fYPqCNkvGLX6J87dv9B2 BRBdSUHpAYU3bQK0eC2v nWrtbxwsM6GrhHJsTlK0 SYX8eNKvfO0ehVxy dlermN9oWbp+M02LDU0J EAOGMB4SXnl1F8JvTvzj dHI+JF40NFRuBU44fAEh rMFyj1yyqZz4VmTp DFLyUFC2hJmfNUuhe0Vu IXQvY47baYJxx0M1WVOr tVpvlMHtNnRflGG4aW9i WKvqiagxo7cqibrz Eydus0edjg20bB32Q68d NSkbHJVhNCW2SSJsUXCm zGqdey0vsD5rIs7+IDxj z8dzl2mgqNz9KrYm BPTcudIavKkaUKU7i9Mm Mj42B5EaxSmxy9WwSae2 eu79zGMqd9N4iUB8HZfa THOhbE0xVGdhXhD1 PFUbWgOppR79cJTnOEbx Ui1ztHxysHxkPM3mZFXw fwamJCIwmJ9oTSQdtLUj wRfiVT2jJVRkajva g123XiFyUNO3JEModWBk O3DjsE7fZlWoGUShSFHt N8VhsVCxMTbcA152RXbp MqM6ENEzuwAsQ6Xw EKYjmQmhHuD4m2E8Fn7F t5QniwgdCVH4TDqxLONz BqZtMeFjKiS4P5LtEcm6 OWLrnVmnLM5xU3Os IKTamysqvqwhuLD3OQAq OIZzgF69mYZyDBfyBd6a q3Q7m055TXHxAEOupL41 Yf0lgNfbJWRrpYHB tB2yiidqr0vfupnfJdFr BSEfJKz7UKy9ZVPypJaz LeJbYSW0VbN4TSG7dEIh jG3okVrhnjigaB6n Oyc+D07baC4lUJK7IRE9 ycdwUJPbpxWdIS24XU25 Y3ZtTmybxELueJD+PGRp esLmiFgwOF3kYpEn x5bsn8HdHMuhU2OhXWXm ZVqdJqw5FROdLTG0iZJ1 fL5wXAQpQNdbg1F9aYO5 E2LwjtVlyd3qn5zj IEKgYRasP61khRBlo6S0 VXMpaFX5JZFlqGknQuCa jG12Npj+YVElwUnff0Fx Uvqpq8cbb8bdcAi2 IjMwJSIgdmFsaWduPSJ0 a6YqDh84W35gQIecVPLk AVUhSWKoRRTphFdonc1n xQ0pYb3+PGNvbCB3 cZF4mP9fCPYlYoO5RAko C720DhSxqDUcMaxxm1fg x7ozkAm4KuYcZJFhejTm dFmhSHQ7p5OiRx97 R16sAFydUTWmJALhVALf MHZxlPlmnw5seF2hMs4+ AW2xe8ejyn85eE39xAP+ CQVkVKS2uEmhPWmo MCQvhI5sNKsfWyM2BAZf ImVybL54tSYsUJzoGx5h zQijaOupFU5aXGDjetnj g824RnJho7thBSLk eCFlMYkmAKL2N49qt4J7 AKNtUWNaDRQ5hBA8qE0x bGlnbjogbGVmdDsgdmVy mHpuXQmpJKpcY350 IHRvcDsnPlBhdGllbnQg UmHbCKn2L4VcQqg6WXBn jIouRH5ujPYfNHatNf1g cJygjEgaAL2bPYGn wmfrr429JlCsi0jxGNBr yGFrMFitSNM5Z72hc4P9 YKYbMHEvZUW4dDQ0xX9h bGlnbjogbGVmdDsg seNttKmrYMdjRXhiH516 IHRvcDsnPkJpcnRoIERh uNN6ED19MC49bTFgw0X7 pAU2P8JtEHWaqbvh pytpyDN6BWUeNOIgfM65 Dk1onIgaPp3bJEOmRNP2 EYOojXGxX2IkgZ5xQtYi VESvPAIvN7DfdASv KQouM105FPcbGtV3NZSt xrRpF2BzLEPpxSegSoB6 v1G2Tc8SZ4N1JW60AP03 jCEze1V3kJN3A4Tg XXIuakjsmpjjcFI7JJNb TVDcvH21Ib5vtZsnTm9l ZXSjFDN0IDThqNYmL5Et fF3vIqWlRMGwYHLx J1KbrAKtCYcaJ716LRta UlS0ZQMfoaClA5LgIKFn eRaaIjG8w0V1Fg7VWSn3 QK85HJ31xTQbw8E5 pYR1T2AiOFExhhrtlrzk bRD2ROJuBTHaaC56Oy1e rPirIf1jPJFhRRG8JVUe cVBmS0RbsO4pPaLm GBYzWLUsZ7JmhFLgMYvw K242YHjsTxB2WMTmykZe C9IrARIqiIzwPrP9s3N7 Th3OMATzYM90UIT1 bMX3MH04GL76K2WcLnef dGFibGU+PHRhYmxlIHdp ZHRoPScxMDAlJyBzdHls YH9pNs5jJVMvJWYu iFzyaWGmSaPzq4xhCVRy HNamWV4cbYwtL7UvtEG2 VNFyo4k6Aa99M57gA9Fa dXA+SKJwaSU9uPZ9 bC9mYwFjIqC4WNznW442 FkDgtYJyVcccg3uoi5ls lMc9ByN4TDDgrxQjdQat AFU9t1FeXd64U89z IHdpZHRoPSIxNSUiIHZh yWgyos0aqX3zUe4+PGNv hNO4lQN4aM0tEzGeDbN2 CIwxM566MlWpoWOd Eynkh8phe5vigLu5KjBl EKZrofPgjXvgZCW3s0We Uv34R4WtxUdvw9YnHfu2 cu95dWOde2Q6eFZ1 I3BoZAKsblbmdBKptHzv PZ3sACFmicjoATWktA4h JHApR1d4NsIsZxW6PBfz F2VmneF4YSMroEUn ABrrPGA1V09qs4E9TWEw IWOkQKO2iQZ6gQ8gqYdq bjogbGVmdDsgdmVydGlj CXzuCIqsG838PYZw zYkdLOYdzL6zXBAxeGDj kDsqCL0xLJMyzoseKioA VR7WHDPZSHlUPWCGPYS5 R0VnQgo1GUYejDsz UM4tnSSpKBqkAc4hrMgz iXyvFW8dDUPobfdpSMLw uH7ePBJxbWVbwJxpFU3c SFPigmujn672KdHw SWC8AHKqlDPdX3QcxM6k XyEqLBVcAZWrX8FcbODc GIabC140CMzyNcA2MSTa oxXvD3TsKZHycFbq AlL1n8W1Uz4vSD7dFB8z NAryJE51HF36zTGtk2S4 fTT6M2JqYPTukdrhhowu lMW9KVQtZAYvoQ38 qOAmNYoiTo1np7F7s329 VOOnUBPqdM23Gv1vkHpv UBYyhFLHoQ9ftoqzo3sp cjogIzAwMDAwMDt0 GHn6VMEgcAjrZsIbUJU3 QrK3FIT1qMLonU7gmXsr anwpqU1dTxu+NDkgWWVh jnL4C9MoUum3UFJm gKyvGK7sxKQnZXkkAv0j yXcinYbhGN3uHCJslzwk SNJifS0iGGVacZZudJzc PJ9uNNVotwxor971 DfCuXQB3WIXtxYDnG0Et cG9uHsLxOFUxKOEvQ1Ua aFKlNHotD572LDvlRrL9 MOJmuvFdX5LcALSc aFdtWyS8t4S0Hg8BAWwq MB73VM88rTKng7M8jDR7 G7KyQUEbvpfwmtpduTK0 GOZaVKXqaU75nMWh HZfqPg0kr6E1y698ZOWm SMDilU82Bi1feKgjXSJi yJXWhH5cmfpkz9djavog KvKoVABsQCo4EMi6 WFHefWadKpFvRSN5OzH4 YNI8gZVhsF7ovLeoqqbv bR6zJxw+T0H5zRX4aYMc dDwvdGQ+TE21hn41 O0OpOcvpDkf1TIDsNZN3 sNE0yR7pPZAmQKpwp8G8 iCS1O1SvhvFnhw4te9es GYSyJFtfW19avITt a0I7FEXbbNN6VAEpxNkh DwAjpE39Erh+PGNvbGdy w5VkHxigo1uuj7xhsRb6 IjMwJSIgdmFsaWdu TER6a7OtZz22J59lAUmo ZHRoPSIzMCUiIHZhbGln es1rwS2vAn8+PGNvbCB3 pSW8oO0aYjYdClC8 IYavS629PhQoyAXwBusz f2qrm1abkNm3JsLvZFDf rkLqwLwsFML5o6JhMt56 R1TbpXnds8DuPle7 lz92rXKsn9A4uSS3L2Do VMFcxbzghLBaaIagQQ7b GGToofsgDEHwjM2eYESj L1n3ZxVbCgL6YTij M5EvreK6AABxiARfJFEi zORCeG7gwzbrc5fyxgzk WnJdCUQlDDa9BUu0BQRc bRorZhMcRZU7LsK1 WKZ5gSEjlM0cjQtutesl qL3yGdc+USi0t2qgkDRz DB6zuCN4TD56SC34lNOt r2H4qKO9H0XgPSZo xblrglchvBF6VGNzJVYl rG19Yp8bmHovQo7tMKFx SKO2YKMndNQyT2WgbB4s VwDzHJNiQUNmE4Zi nFSgPXnuY334DMzuDmL4 HXUqtjRpA7RlLYAmoTrl BlI9z0Y0Wl6RIY97RO95 TY34eDJdq4P7xMO1 H9XzXDBhgtqrnajbxKF1 ZMSjVDCixS75Rf4vxVgr Zd2oOQOwRND6OLNgmIDe V0QqrK9gTrAjBHUs PTXgQ5TsbVRtXNssT733 DDuiRiI8HLItrgGeX3Xx HNZqkBwbKkL1n2B1Wr6S Yj17DD51GQ07oVRw k9M7yXT0P3MaOKWfwrru zqkeiTI7UAKqFHFbmX32 Mk3uwAgwHv1wAKTbHZZ3 RTWsgRZjH2PvaB2o RmIiGVIpLBOcX2UisMUt QDnkQ669VZicGsL3IRXd nxKvK1MeLHDdgQsoRfI5 y1Z7Ry9UHOedqid0 C0MvZnrijVK+GP72YVUg PF43eBJlmULac4gdaOv6 VtVbGNOzNZH6fLxmWOje b9ThIQErY02qzIOi c2U6 (more content not included)... Normal [facility] Consent for Procedure/Surger yon 11-05-2022 Consent for Procedure/Surgery [id number] Normal [facility] Ambulatory Visit Summaryon 1 01-02-2022 Ambulatory Visit [...] Follow-Up Appointments Saturday 12:40 PM EST Where: [facility] Surgical Services You Need to Schedule [...] future visit, Lab Collect, Irregular bowel habits [facility] Auto Diffon 11-01-2022 Basophils/100 WBC (Bld) 0.8 % Normal 0.0-2.0 [facility] Comment on above: Order Comment: Order Added by Discern Expert. Performed By: #### 2 [id number] ####[facility] [id number] [place] [address] Basophils/Leukocyte s Auto (Bld) [Pure # fraction] 0.0 E9/L Normal 0.0-0.2 [facility] Comment on above: Order Comment: Order Added by Discern Expert. Performed By: #### 2 [id number] ####[facility] [id number] [place] [address] Eosinophils/100 WBC (Bld) 0.4 % Normal 0.0-8.0 [facility] Comment on above: Order Comment: Order Added by Discern Expert. Performed By: #### 2 [id number], [id number] ####[address] [address] Eosinophils/Leukocy dianne Auto (Bld) [Pure # fraction] 0.0 E9/L Normal 0.0-0.5 [facility] Comment on above: Order Comment: Order Added by Discern Expert. Performed By: #### 2 [id number], [id number] ####[address] [address] Lymphocytes/100 WBC (Bld) 35.8 % Normal 14.0-50.0 [facility] Comment on above: Order Comment: Order Added by Discern Expert. Performed By: #### 2 [id number] ####[address] [address] Lymphocytes/Leukocy dianne Auto (Bld) [Pure # fraction] 1.5 E9/L Normal 1.0-4.0 [facility] Comment on above: Order Comment: Order Added by Discern Expert. Performed By: #### 2 015811, 4593587, 4664688, [id number] ####[address] [address] Monocytes/100 WBC (Bld) 15.7 % High 4.0-14.0 [facility] Comment on above: Order Comment: Order Added by Discern Expert. Performed By: #### 2 194067, 7066604, 6697914, 88411669 ####[address] [address] Monocytes/Leukocyte s Auto (Bld) [Pure # fraction] 0.6 E9/L Normal 0.2-1.0 [facility] Comment on above: Order Comment: Order Added by Discern Expert. Performed By: #### 2 483043, 4103730, 1904506, [id number] ####[facility] [address] [place] [address] Neutrophils/100 WBC (Bld) 47.3 % Normal 36.0-75.0 [facility] Comment on above: Order Comment: Order Added by Discern Expert. Performed By: #### 2 082725, 5438722, 1311451, 74066942 ####[address] [place] [address] Neutrophils/Leukocy dianne Auto (Bld) [Pure # fraction] 1.9 E9/L Low 2.0-7.5 [facility] Comment on above: Order Comment: Order Added by Discern Expert. Performed By: #### 2 883047, 4389539, 0479772, 72923134 ####[address] [address] CBC w/ Auto Diffon Erythrocyte distribution width (RBC) [Ratio] 14.3 % High 10.9-14.2 [facility] Comment on above: Performed By: #### 2 591337, 9824059, 3653384, 53691478 ####[address] [address] Hematocrit (Bld) [Volume fraction] 41.4 % Normal 37.7-49.0 [facility] Comment on above: Performed By: #### 2 536778, 0429204, 7916451, 78916172 ####[address] [address] Hemoglobin (Bld) [Mass/Vol] 14.4 g/dL Normal 13.5-17.5 [facility] Comment on above: Performed By: #### 2 339929, 9597193, 0462577, 74430832 ####[address] [address] MCH (RBC) [Entitic mass] 31.2 pg Normal 27.0-34.0 [facility] Comment on above: Performed By: #### 2 561629, 7868699, 6464651, 88646649 ####[address] [place] [address] MCHC (RBC) [Mass/Vol] 34.8 g/dL Normal 31.4-36.0 [facility] Comment on above: Performed By: #### 2 337833, 4901044, 9125277, 60118123 ####[address] [address] MCV (RBC) [Entitic vol] 89.9 fL Normal 80.0-100.0 [facility] Comment on above: Performed By: #### 2 991687, 0521481, 0317929, 42840024 ####[address] [address] Platelet mean volume (Bld) [Entitic vol] 7.0 fL Normal 6.4-10.8 [facility] Comment on above: Performed By: #### 2 398384, 3194769, 9635930, 17104911 ####[address] [address] Platelets (Bld) [#/Vol] 221.0 E9/L Normal 150.0-500.0 [facility] Comment on above: Performed By: #### 2 800485, 5507560, 4084116, 80624931 ####[address] [address] RBC (Bld) [#/Vol] 4.6 E12/L Normal 4.3-5.9 [facility] Comment on above: Performed By: #### 2 524409, 9800678, 0463432, 64149167 ####[address] [address] WBC corrected for nucl RBC Auto (Bld) [#/Vol] 4.1 E9/L Normal 4.0-11.0 [facility] Comment on above: Result Comment: Slid e reviewed by KD. Performed By: #### 2 281141, 5588304, 2842120, [id number] ####[facility] [address] [place] [address] CMPon 11-01-2022 Albumin [Mass/Vol] 4.3 g/dL Normal 3.3-5.0 [facility] Comment on above: Performed By: #### 2 198303, 7874380, 6468701, 20986622 ####[facility] [address] [place] [address] Albumin/Globulin (S) [Mass conc ratio] 1.4 Normal 1.1-2.2 [facility] Comment on above: Performed By: #### 2 427496, 3680341, 0890805, 57920853 ####[facility] [address] [place] [address] ALP [Catalytic activity/Vol] 62 Int._Unit/L Normal 21-98 [facility] Comment on above: Performed By: #### 2 676748, 0228398, 3581807, 60193674 ####[facility] [address] [place] [address] ALT No additional P-5'-P [Catalytic activity/Vol] 16 Int._Unit/L Normal 6-46 [facility] Comment on above: Performed By: #### 2 711249, 9163147, 7590193, 58993017 ####[facility] [address] [place] [address] Anion gap [Moles/Vol] 10 mmol/L Normal 6-16 [facility] Comment on above: Performed By: #### 2 393548, 2174726, 5657137, 28277798 ####[facility] [address] [place] [address] AST [Catalytic activity/Vol] 14 Int._Unit/L Normal 5-43 [facility] Comment on above: Performed By: #### 2 165289, 3773390, 0144674, 38543330 ####[facility] [address] [place] [address] Bilirubin [Mass/Vol] 0.5 mg/dL Normal 0.0-1.1 [facility] Comment on above: Performed By: #### 2 773429, 1696738, 6779065, 72499184 ####[facility] [address] [place] [address] Calcium [Mass/Vol] 9.4 mg/dL Normal 8.9-11.1 [facility] Comment on above: Performed By: #### 2 437088, 8807159, 1833824, 42932100 ####[facility] [address] [place] [address] Chloride [Moles/Vol] 108 mmol/L Normal 101-111 [facility] Comment on above: Performed By: #### 2 726727, 2554832, 2687747, 49845278 ####[facility] [address] [place] [address] CO2 [Moles/Vol] 22 mmol/L Normal 21-31 [facility] Comment on above: Performed By: #### 2 838543, 4852659, 2263658, 48789964 ####[facility] [address] [place] [address] Creatinine [Mass/Vol] 0.7 mg/dL Normal 0.5-1.3 [facility] Comment on above: Performed By: #### 2 434251, 9361055, 4466718, 25315825 ####[facility] [address] [place] [address] Globulin (S) [Mass/Vol] 3.0 g/dL Normal 1.4-4.0 [facility] Comment on above: Performed By: #### 2 082629, 4613106, 5478689, 51168004 ####[facility] [address] [place] [address] Glucose [Mass/Vol] 219 mg/dL High 55-199 [facility] Comment on above: Result Comment: If t his glucose result represents a fasting glucose, interpretation should refer to the following reference range: 55-99 mg/dL Performed By: #### 2 497651, 1032632, 0420128, 63350332 ####[facility] [address] [place] [address] Potassium [Moles/Vol] 4.3 mmol/L Normal 3.5-5.3 [facility] Comment on above: Performed By: #### 2 083367, 5111012, 8253883, 71224256 ####[facility] [address] [place] [address] Protein [Mass/Vol] 7.3 g/dL Normal 6.0-7.8 [facility] Comment on above: Performed By: #### 2 166681, 5562635, 5465475, 39034154 ####[facility] [address] [place] [address] Sodium [Moles/Vol] 136 mmol/L Normal 135-145 [facility] Comment on above: Performed By: #### 2 721846, 4936589, 4909251, 03003866 ####[facility] [address] [place] [address] Urea nitrogen [Mass/Vol] 26 mg/dL High 5-21 [facility] Comment on above: Performed By: #### 2 699962, 1216840, 9677643, 29642034 ####[facility] [address] [place] [address] Urea nitrogen/Creatinine [Mass ratio] 37 No Units High 10-20 [facility] Comment on above: Performed By: #### 2 067544, 2664401, 0406743, 91501957 ####[facility] [address] [place] [address] CULTURE URINEon 11-01-2022 CULTURE URINE Culture Observations: NO GROWTH. Normal [facility] Comment on above: Performed By: #### U RCX #### [facility] [address] [place] [address] [address] [address] Pam Granger Consent for Treatmenton Consent for Treatment [id number] #1.00CD:127 Normal [facility] GLYCOHEMOGLOBIN A1Con 2021 ADA RECOMMENDATION SEE BELOW Normal [facility] Comment on above: Result Comment: ADA RECOMMENDED LIMIT 4.0 - 6.0 ADA THERAPEUTIC TARGET < 7.0 ACTION SUGGESTED > 7.0 Performed By: #### A 1C #### [facility] [address] [place], [place] [address] Dr. Pam Granger Glucose [Mass/Vol] 189 mg/dL Normal [facility] Comment on above: Performed By: #### A 1C #### [facility] [address], [place] [address] Dr. Pam Granger HbA1c (Bld) [Mass fraction] 8.2 % Critically high 4.5-6.2 [facility] Comment on above: Performed By: #### A 1C #### [facility] [address] [place], [place] [address] Dr. Pam Granger Gastroenterology Office/Clin ic Noteon [...] day(s), # 90 cap(s), Refills(s) 0, Pharmacy: [facility], 171, cm, 11/01/22 12:17:00 EST, Height/Length Dosing, 78.9, kg, 12 (more content not included)... Normal [facility] Comment on above: Result Comment: Elec tronically [...] including vitamins, herbs, eye drops, creams, and etae-ygh-tkyyvxw medicines. ? Any problems you or family [...] air t (more content not included)... Normal [facility] UA RANDOM W/MICROSCOPICon BACTERIA NONE SEEN Normal NONE SEEN [facility] Comment on above: Performed By: #### A 1C #### [facility] [address] [place] [address] Dr. Pam Granger Bilirubin Ql (U) Negative Normal NEGATIVE [facility] Comment on above: Performed By: #### A 1C #### [facility] [address] [place] [address] Dr. Pam Granger CAST NONE SEEN Normal NONE SEEN [facility] Comment on above: Performed By: #### A 1C #### [facility] [address] [place] [address] Dr. Pam Granger Clarity (U) CLEAR Normal CLEAR [facility] Comment on above: Performed By: #### A 1C #### [facility] [address] [place] [address] Dr. Pam Granger Color (U) LT. YELLOW Normal YELLOW [facility] Comment on above: Performed By: #### A 1C #### [facility] [address] [place] [address] Dr. Pam Granger Crystals LM Nom (Urine sed) NONE SEEN Normal NONE SEEN [facility] Comment on above: Performed By: #### A 1C #### [facility] [address] [place] [address] Dr. Pam Granger Epithelial cells LM Ql (Urine sed) FEW Abnormal NONE SEEN /RARE [facility] Comment on above: Performed By: #### A 1C #### [facility] [address] [place] [address] Dr. Pam Granger Glucose Ql (U) >1000 Abnormal NEGATIVE [facility] Comment on above: Performed By: #### A 1C #### [facility] [address] [place] [address] Dr. Pam Granger Hemoglobin Ql (U) Negative Normal NEGATIVE The [facility] Comment on above: Performed By: #### A 1C #### [facility] [address] [place] [address] Dr. Pam Granger Ketones Ql (U) TRACE Abnormal NEGATIVE [facility] Comment on above: Performed By: #### A 1C #### [facility] [address] [place] [address] Dr. Pam Granger LEUKOCYTES Negative Normal NEGATIVE [facility] Comment on above: Performed By: #### A 1C #### [facility] [address] [place] [address] Dr. Pam Granger MUCOUS NONE SEEN Normal NONE SEEN [facility] Comment on above: Performed By: #### A 1C #### [facility] [address] [place] [address] Dr. Pam Granger Nitrite Ql (U) Negative Normal NEGATIVE [facility] Comment on above: Performed By: #### A 1C #### [facility] [address] [place] [address] Dr. Pam Granger pH (U) 6.0 [pH] Normal 5-9 [facility] Comment on above: Performed By: #### A 1C #### [facility] [address] [place] [address] Dr. Pam Granger RBC 0-2 Normal 0-2 [facility] Comment on above: Performed By: #### A 1C #### [facility] [address] [place] [address] Dr. Pam Granger SPEC GRAVITY 1.025 Normal 1.005-<=1.025 [facility] Comment on above: Performed By: #### A 1C #### [facility] [address] [place] [address] Dr. Pam Granger UA PROTEIN Negative Normal NEGATIVE/ TRACE [facility] Comment on above: Performed By: #### A 1C #### [facility] [address] [place] [address] Dr. Pam Granger Urobilinogen Qn (U) 0.2 {Steve'U}/dL Normal 0.2 - 1. 0 [facility] Comment on above: Performed By: #### A 1C #### [facility] [address] [place] [address] Dr. Pam Granger WBC NONE SEEN Normal NONE SEEN [facility] Comment on above: Performed By: #### A 1C #### [facility] [address] [place] [address] Dr. Pam Granger eGFRon 11-01-2022 GFR/1.73 sq M.predicted among blacks MDRD (S/P/Bld) [Vol rate/Area] mL/min/{1.73_m2} Normal >=59 [facility] Comment on above: Order Comment: Order added by Discern Expert. Result Comment: eGFR is race adjusted. AA=. Performed By: #### 2 418778, 1669954, 0682083, [id number] ####[facility] [address] [place] [address] GFR/1.73 sq M.predicted among non-blacks MDRD (S/P/Bld) [Vol rate/Area] mL/min/{1.73_m2} Normal >=59 [facility] Comment on above: Order Comment: Order added by Discern Expert. Result Comment: All Source Analyst cydney kidney disease could be indicated at eGFR's of less than 60 mL/min/1.73m2. Kidney failure is indicated at less than 15 mL/min/1.73m2. Performed By: #### 2 585410, 1279226, 0581734, 80634262 ####[facility] [address] [place] [address] Physician Referralon 022 Physician Referral [id number] #1.00CD:127 Normal [facility] Coding Summary.on 09-26-2022 Coding Summary. CD:[id number] Gh0bWw+PGhlYWQ+PE1FV IKwR88plSLxdH5GX0fZV P0OZCKPWKKUHA1PFG6mj RM4XXjlU4BlcmVb HozlxTAcCG48UOd3HTO7 fZieETsgkU3foSUjU6b1 PaBrRO38hA66IIooJTEw QlL5TkUotzzecENl A9fcUhUjvYViNwb+PHRh YmxlIHdpZHRoPScxMDAl QjKugVrxGZ9cJz9iAOCm LWNvbGxhcHNlOiBj n6klGUVaIXafCS1lmLww F1PwmFG8TKNri8e9Ib05 dHI+JWBsQPB7pPjfLHkr j624YtOaw7heAHQ4 tWPaOSewJSG2X92ay7X7 ZEQwEMSgYOP2rTN3gR1u vKhmyserZ7FzpCVlRtZ6 CLK4wYUheC3ccQtb tsgbsY8qWrj+J04VSR5L ZQSEJI8KVhr5J6PgCipc dHI+JV97AZAyRI75yUTp eFGua8dtuHm5IeIo NSNyIMO1wPiaPZgov8Lp IPNhV26iqTFgi1F0DHGb jNsegFIeBxYmnED6rO2n XPtmlvzxr0xjezec Twdbk8ijqb03bK67Q78f LGqgFBQxGGL6OGWqHKHe vEecca2sxK1tMn2+IDxj b0kbv1ctlSk2QlOs OJIjryVvdItkAIV5l3Xz Jk17F6AdaCeli5NqSnz7 jz17tDPnj9P7hFY7LEgm WWNxrM0fFDkaFrL2 HXSbDyQqtK23zOLzXRya Wk2xkJvxdWmkLI6gBUYq owumDTZyiY5eEZVcxDOr vJefMV8lXLAhvlwy f857WfJnCPW1XHXbyHPb G2JxsJ6oAwSwLQXbEULe P4WilBDsKWtoH647IIry BbO4YPDuinEzY1Pe LRZseOqdCiA7b7F4Ch5D g6AhcsboFFG7BTpeLIJm HiEiCaNnJoY0D5NjRhb6 ZJCjdAjbXQ2uU7Bl DNKoelvkeoehsWT8YTUh URSxpP67hLFdPEylRm0i g1M1h796XRNsQQBvsF29 Fe8smGihUNGidSUZ tK1wuqkat7bvkbsxAmOp MSRiJUv1YWg5CECilNkf FjBxPEU7FnO9BQI1uKWb aD9tlBhugnobdA3b Oyc+C35gbU0vESP4TMB7 obqdTAVgolNzGR67DC87 H6KgEnszzYEzaMW+PGRp cnYcuVuyOR5cLlAk b1hyd6PzUHfaD0UeUHTi CDsbIgr7YXHqTBB0tRJ6 mD6wSFWiLGcnk6O5sFJ4 R8YobbYmid8bj7es EZWuMKamD97luAMkf5X4 XGEvnUZ5MZXykRrvUyLu vH62Iou+GVQpoDlzn5Fe Mtaru8auu1uwgFi5 IjMwJSIgdmFsaWduPSJ0 q0PrXr80O27dTPuyKJAc SQDhVUIzMWBfjGwdha7v sJ4aBj7+PGNvbCB3 tIM3vM5uUVNpStD7HFer R626HyZiiJCmXfpsx8pn w6yurSd2HpNpXQMiagUt qDejLBW1a5OdTb87 E65vRFuhUVWzUJRnLTWg MGItqHxrxi9wiJ4bOh8+ BB9ka5ucxg27bG52qWN+ HSYvKVA3jZwzQVvb XVJtbH0pGBlsVjL9XJVb PeJeeE37vVKvIIluHg2e mBfzaHxhBZ4pYIEaszmk a686OaTat9beUGFy qGDfGSfwWIY5Y75sc6N9 PZJiCPElVQA6kOE2fO5c bGlnbjogbGVmdDsgdmVy sJzlJDdwMLwiG792 IHRvcDsnPlBhdGllbnQg OeLnFNc3S2UzSar1VMWi zEkyDS6ibEBgFOarSs1y mBamrGkmGT2uLFLo awsvp907TiUjo5zjNYYo sGNdNYzxWVO0Z05se5W7 LHQjWSUzDOB5dLC5bC2l bGlnbjogbGVmdDsg dyBgoGsnNQhpYEcqR577 IHRvcDsnPkJpcnRoIERh qEK4HC01GJ03oASum2T3 aFR6J4AuCSTccbfi dghycWU3MYTwSCKvhY68 Sf6sqLicPj8uZSWgQEL5 ENKxwQJsB6CdeY2uXhAg CBEgTQWxW3ZpbPWo RRomW955HDdeMmM7AZEw woEtC5ClDKIlxCbgVbC4 u9K5Wz0OS2L9JW36UV85 fJLao2I4eEM4Y6Mc QVXgkbbxwdrtpUC9CUAc XOMlkP48Ra3opOzlYd5n LVSzVIK6OAGttWGqQ9Jd oX0sHsBtITVxNRHo Q5ScsWZzENbrO953QPxa XrX8HTXqqhIuN3ZnRLBu qEjeNvJ9l5O7Xy4WMGe5 WB99GB03aOAiv6R0 vFI1F6PaLRFivnsdahic bVJ8HSKjMHTgnZ88It7l mWfsYx7gLMGtBYZ5VPSm sQDbZ8NyoY0mZjFc WWAsSOKgD5SxrGYjVFol H282QLnqPtC3FSTnjuCy G8CfZFKxqYpzUzV8o9B0 Vd0GZBKdWI23GWS7 mLG1NH02DU28K0MqVhvw dGFibGU+PHRhYmxlIHdp ZHRoPScxMDAlJyBzdHls VA8gSf3eNQJiLNGw qGmuuJFrGkZzv6mcRJHi HGfxLU1zpPhjO1VecHR5 AMEop1k0Ep79Y43lI3Xw dXA+OZHufQZ5tPF0 dN0kZhYqOdN8LWgzC719 XoZtkVYpXokbg0zbb3tr oCp4ElM8HOXmxwAanIjk AQP2y5RaZb77G23v IHdpZHRoPSIxNSUiIHZh pXtnwz4tiK6rBi0+PGNv hUY5mOE7aA5nMrOcYfI1 NKjwH284FgSmmISp Eogzv0zmf8lgrYv7ClDj HDNfraRdzHauBDQ6o2Il Vf32L5GuqSphb3IhPxl9 wt41uDLzh2N1xGC2 A3JxBBJjseabsQMpqNec DA3sWHWrueedYDDizV2w YTSlL7z4NhGaOxJ8NQmv I0YnzzI9LVPsqVGt MMieWWN6X80uy1I8YRVi YPCxLZF5hHI0dK0esGbb bjogbGVmdDsgdmVydGlj GNvyRWrrB774VBHu gLwbYHZakX7xZWTquVLl yTenYK4zRYRqkfmlHrhJ YX7PFMGFDSkDTAULISV7 Q9TvKtc0UJNxzPve OX0orSMuBGpdCg5rbYeb yMjgLI9cNQSzxvnfJXZd wR2qOEYwsRTwdUgaVM7m LQXujbpje520XjAx NWD4PEKzqIMlQ5EtcD1f ZzFkBNUsTEExU5ZzhFNr HGidA339FKmvKlT5EPYy xkLcT4ZdIQHfbSni JvW8g8E0Ej3jRR0rAB2n KVvkNR63CR34zHThc1G7 tBU1T3CaWRWbgunuipxs fRX1SLZeEJIskB71 eCQvMTwrPk9vk8T9g159 QOHoNFYhnX86Im7jzKos EBDpzBEPgE7iwkwoi9nf cjogIzAwMDAwMDt0 JPm7KTUomOabZwBfVJZ6 QfF9GTR9nKNzqR5jtXab vznhoW8sHkt+NDkgWWVh cdF5L7IxXrv6CWDw uQnsYI8loZFgANwhYo5l eWmmxNjgAC4lYMGimijw OEVwzT0wONQsoRYurCam UV6cEJQcoqaxa153 TzJgJUS6RMZmkHEeP5Mz vH8vDwFaDYEvZIYcY0Rx cERqIFiyW455PRqpDiG4 CEFojtBpE2FpBOZo iDwmMpK0o3K1Ei5KSStp HM73TR84iBZsy0D5eEE4 X9GhMBOlchqlwhhbrIZ7 GNPyHLSrjO87sUVv ESfeEe2zy1I1i827BJDl VXTrxR62Si0qtGwxAKMs uPZVnY4hmkidb1zjnttu AeRxMKClQAf1LLw7 PGBbhLvaPjVwHPW0PlG2 JKW6fTRaeQ2eeJhtwnab uG9uRin+Q5Y6qFX3jTAy dDwvdGQ+RE84pl66 V1AjMlbaYdm1PUCtPYV0 eGD6eJ8yTBRbFQgtp1E5 iHG1Z4GedsVjtw8fj3tc PIHtKHdhX87rlQTa a3H3SIZkfPG6UREchIwr AlDljL63Dib+PGNvbGdy l0SvGalty3oqb3owxWx3 IjMwJSIgdmFsaWdu OCI1h6OeQn98X52oCAqf ZHRoPSIzMCUiIHZhbGln im2jiL1bNh5+PGNvbCB3 vBE9qS4nJhMfCtV8 MJdtS211DqAwfAXtJpns o7wyu8ahmYg0FaFwCQJe kxPgiCcxKBL7d8DkEb60 F9WpcLccq7AiBju0 en86wELuv4G4yQE4G0Un QNYvycdizAEiwIcnHL0u XZLftizsBHQizS4jCVCi N7i2PcNqJnV8TNdq N7UmroJ4QEMruDDxETYh zNNZtD8xtmbzh0mkegxy WnSdTRJpBAm5WGv9QMDr sDibAdYtUIH6KyM3 OEV8aWFmbN2zzZkzeqvo wT5mOak+DUw4f4mlzGPf QW9brDE2XS80LW23uVZp d0T0dXH2L8ZkVHDk rdendkadmPV0GNGfWKLb oT94Zp5jnZjlWp2uRWWq DJI8PEPayJVnF9PvbJ6s RbNrDJXmNMXfZ2Om zCSdEHbtZ711LNrdSlW1 RJUqeoNoY0YcYGGmaKyu LoG2m1X8Pq5GOK36BM15 IK88zJRwc2A4hQL1 E1UkTBXjqsxwhyzehIV4 TIDbGQGhzV60Yq6ljHdm Zr0jILWuKGU7OKHxtKTq B8KffP5eIiXzRTQu YPBqR5EdaDSiEZdqU310 KFptOlX9AGEvrcXjA5Qz IWHkcSgnUjK2d8J3Bk4W Wj27ND38IR54jQKn s8H1aBW2F4UlPPJsdyzs rplmcAP3CZHuYUUjbG77 Hi8raYfoFp3fIOKtAIS7 FATbdVMdR9NwpY3a XnPyNSPrBJHfJ5XwbYZr FWsqV854QWfwQrG4LWZw diVyH6PlJAMlpMkxGzV1 c2C3Vr1NMFtcgku8 K6VhHqvqjHV+MM79TMKm ZP53pKKvzPOxl7cewOj9 BkBmIPBsZGK9fSczFZvk a6IoXWHaA57ehACy c2U6 (more content not included)... Normal [facility] CT Maxillofacial w/o Contras ton 09-20-2022 CT [...] J32.4 Chronic pansinusitis. COMPARISON: Sinus CT from 58 TECHNIQUE: Multiple images axial images were [...] MD, V. Transcribed by: GARCIA Technologist: RODO, Justa [facility] Consent for Treatmenton 08-26 Consent for Treatment [id number] #[id number]:127 [facility] Physician Orderon 09-14-2022 Physician Order [id number] #1.00CD:127 [facility] COVID-19, Rapidon 06-25-2022 SARS-CoV-2 (COVID-19) RNA SHANEKA+probe Ql (Unsp spec) Not detected Not Detected [facility] Comment on above: Rapid NAAT: The specimen [...] management decisions. Fact sheet for Healthcare Providers: https://www.fda.gov/media/635058/download Fact sheet for Patients: https://www.fda.gov/media/773664/download Methodology: Isothermal Nucleic Acid Amplification Specimen Description .NASOPHARYNGEAL [facility] XR CHEST PORTABLEon 06-25-20 No acute abnormality. [facility] EXAMINATION: ONE XRAY VIEW [...] within normal limits. No acute bony findings. [facility] Felecia Pelletier, - 06/25/2022 [...] acute bony findings. IMPRESSION: No acute abnormality. [employer] Work Phone: Radiology Study observation (narrative) [employer] Work Phone: XR CHEST PORTABLEOrdered By: Felecia Pelletier on 06-25-2022 [employer] Work Phone: GLYCOHEMOGLOBIN A1Con 2021 ADA RECOMMENDATION SEE BELOW Normal [facility] Comment on above: Result Comment: ADA RECOMMENDED LIMIT 4.0 - 6.0 ADA THERAPEUTIC TARGET < 7.0 ACTION SUGGESTED > 7.0 Performed By: #### A 1C #### [facility] [address] [address] [address] Pam Granger Glucose [Mass/Vol] 192 mg/dL Normal [facility] Comment on above: Performed By: #### A 1C #### [facility] [address] [address] [address] Pam Granger HbA1c (Bld) [Mass fraction] 8.3 % Critically high 4.5-6.2 [facility] Comment on above: Performed By: #### A 1C #### [facility] [address] [address] [address] Pam Granger Acetaminophen Levelon 2021 Acetaminophen Level <5 Low 10 - 30 ug/mL [facility] [employer] Interpretation and review of laboratory results Abnormal [facility] [employer] [facility] [employer] CBC with Auto Differentialon 05-16-2022 Absolute Eos # 0.09 [place] [email or web address] Absolute Immature Granulocyte 0.03 [facility] [employer] Absolute Lymph # 2.11 [facility] [employer] Absolute Dixon # 0.79 [facility] Basophils (Bld) [#/Vol] 0.06 10*3/uL [facility] [employer] Basophils/100 WBC (Bld) 1 % 0 - 2 % [facility] [employer] Eosinophils/100 WBC (Bld) 1 % 1 - 4 % [facility] [employer] Hematocrit (Bld) [Volume fraction] 40.9 % 40.7 - 50.3 % [facility] [employer] Hemoglobin (Bld) [Mass/Vol] 14.2 g/dL 13.0 - 17.0 g/dL [facility] Immature granulocytes/100 WBC (Bld) 1 % High 0 [facility] Interpretation and review of laboratory results Abnormal [facility] Lymphocytes/100 WBC (Bld) 33 % 24 - 43 % [facility] MCH (RBC) [Entitic mass] 31.6 pg 25.2 - 33.5 pg [facility] MCHC (RBC) [Mass/Vol] 34.7 g/dL 28.4 - 34.8 g/dL [facility] MCV (RBC) [Entitic vol] 91.1 fL 82.6 - 102.9 fL [facility] Monocytes/100 WBC (Bld) 12 % 3 - 12 % [facility] NRBC Automated 0.0 0.0 per 100 WBC [facility] Platelet distribution width (Bld) [Ratio] 12.2 % 11.8 - 14.4 % [facility] Platelet mean volume (Bld) [Entitic vol] 9.7 fL 8.1 - 13.5 fL [facility] Platelets (Bld) [#/Vol] 234 10*3/uL [facility] RBC (Bld) [#/Vol] 4.49 10*6/uL 4.21 - 5.7 7 m/uL [facility] Segmented neutrophils/100 WBC (Bld) 52 % 36 - 65 % [facility] Segs Absolute 3.35 [facility] WBC (Bld) [#/Vol] 6.4 10*3/uL [facility] COVID-19, Rapidon 05-16-2022 Interpretation and review of laboratory results Abnormal [facility] SARS-CoV-2 (COVID-19) RNA SHANKEA+probe Ql (Unsp spec) Detected Abnormal Not Detected [facility] Comment on above: Rapid NAAT: The specimen [...] this assay. Fact sheet for Healthcare Providers: https://www.fda.gov/media/860344/download Fact sheet for Patients: https://www.fda.gov/media/461834/download Methodology: Isothermal Nucleic Acid Amplification Results reported to the appropriate Health Department Specimen Description .NASOPHARYNGEAL SWAB [facility] Comprehensive Metabolic Pane ajay 05-16-2022 Albumin [Mass/Vol] 4.7 g/dL 3.5 - 5.2 g/dL [facility] Albumin/Globulin [Mass ratio] 2.0 {ratio} [facility] ALP (Bld) [Catalytic activity/Vol] 65 U/L 40 - 129 U/L [facility] ALT [Catalytic activity/Vol] 12 U/L 5 - 41 U/L [facility] Anion gap [Moles/Vol] 14 mmol/L 9 - 17 mmol/L [facility] AST [Catalytic activity/Vol] 11 U/L <40 [facility] Bilirubin [Mass/Vol] 0.22 mg/dL Low 0.3 - 1.2 mg/dL [facility] Calcium [Mass/Vol] 10.1 mg/dL 8.6 - 10. 4 mg/dL [facility] Chloride [Moles/Vol] 101 mmol/L 98 - 107 mmol/L [facility] CO2 [Moles/Vol] 23 mmol/L 20 - 31 mmol/L [facility] Creatinine [Mass/Vol] 0.57 mg/dL Low 0.70 - 1.20 mg/dL [facility] Free PSA/Total PSA [Mass fraction] 7.0 g/dL 6.4 - 8.3 g/dL [facility] GFR >60 >60 mL/min [facility] GFR Non- >60 >60 mL/min [facility] Glucose [Mass/Vol] 203 mg/dL High 70 - 99 mg/dL [employer] Potassium [Moles/Vol] 4.4 mmol/L 3.7 - 5.3 mmol/L [employer] Sodium [Moles/Vol] 138 mmol/L 135 - 144 mmol/L [employer] [facility] Urea nitrogen (BldV) [Mass/Vol] 12 mg/dL 6 - 20 mg/dL [employer] Urea nitrogen/Creatinine (Bld) [Mass ratio] 21 High [employer] EKG 12 LeadOrdered By: Zheng Anderson on 05-16-2022 Atrial Rate 92 BPM [employer] Work Phone: P [place] 67 degrees [employer] Work Phone: P-R Interval 170 ms [employer] Work Phone: Q-T Interval 354 ms [employer] Work Phone: QRS Duration 90 ms [employer] Work Phone: QTc Calculation (Bazett) 437 ms [employer] Work Phone: R [place] 73 degrees [employer] Work Phone: T [place] 85 degrees [employer] Work Phone: Ventricular Rate 92 BPM [email or web address] Work Phone: [employer] Work Phone: EKG 12 Leadon 05-16-2022 Normal sinus rhythm Possible Left atrial enlargement Borderline ECG When compared with ECG of 23-NOV-2021 09:40, Nonspecific T wave abnormality no longer evident in Inferior leads Confirmed by COCO ANDERSON ([id number]) on 05/16/2022 7:06:44 PM [facility] Coco Anderson MD - 05/16/2022 Normal sinus rhythm Possible Left atrial enlargement Borderline ECG When compared with ECG of 23-NOV-2021 09:40, Nonspecific T wave abnormality no longer evident in Inferior leads Confirmed by COCO ANDERSON ([id number]) on 05/16/2022 7:06:44 PM [facility] Work Phone: Ethanolon 05-16-2022 Ethanol [Mass/Vol] mg/dL <10 mg/dL [facility] Ethanol percent <0.010 <0.010 % [facility] Laboratory - Chemistry and C hemistry - challengeon 05-16-2022 GFR/1.73 sq M.predicted MDRD (S/P/Bld) [Vol rate/Area] [facility] Comment on above: Average GFR for 40-4 9 years old: 99 mL/min/1.73sq m Chronic Kidney Disease: <60 mL/min/1.73sq m Kidney failure: <15 mL/min/1.73sq m eGFR calculated using average adult body mass. Additional eGFR calculator available at: http://www.[employer]/multiple_crcl_2012.htm Stage 1: Some kidney damage normal GFR Stage 2: Mild kidney damage GFR 60-89 Stage 3: Moderate kidney damage GFR 30-59 Stage 4: Severe kidney damage GFR 15-29 Stage 5: Severe kidney damage GFR <15 ESRD - chronic treatment by dialysis or transplant No Panel Informationon 05-16 Interpretation and review of laboratory results Abnormal [facility] Salicylateon 05-16-2022 Salicylate Lvl <1 Low 3 - 10 mg/dL [facility] Urine Drug Screenon 05-16-20 Amphetamine Screen, Ur Negative NEGATIVE [facility] Barbiturate Screen, Ur Negative NEGATIVE [facility] Benzodiazepine Screen, Urine Negative NEGATIVE [facility] Buprenorphine Urine Negative NEGATIVE [facility] Cannabinoid Scrn, Ur Negative NEGATIVE [facility] Cocaine Metabolite, Urine Negative NEGATIVE [facility] Methadone Screen, Urine Negative NEGATIVE [facility] Methamphetamine, Urine Negative NEGATIVE [facility] Opiates, Urine Negative NEGATIVE [facility] Oxycodone Screen, Ur Negative NEGATIVE [facility] Phencyclidine, Urine Negative NEGATIVE [facility] Propoxyphene, Urine Negative NEGATIVE [facility] Tricyclic Antidepressants, Urine Negative NEGATIVE [facility] Comment on above: Drug screen results are to be used for medical purposes only. All positive results are unconfirmed. Testing for employment or legal uses should be sent to a reference laboratory for confirmation. [facility] XR CHEST 1 VIEWon 05-16-2022 No acute airspace disease identified. [facility] EXAMINATION: ONE XRAY VIEW OF THE CHEST 05/16/2022 6:40 pm COMPARISON: None. HISTORY: ORDERING SYSTEM PROVIDED HISTORY: covid TECHNOLOGIST PROVIDED HISTORY: covid FINDINGS: Shallow inflation. The cardiomediastinal silhouette is within normal limits. There is no consolidation, pneumothorax or evidence for edema. No evidence for effusion. No acute osseous abnormality is identified. [facility] Ziyad Murrell MD - [...] identified. IMPRESSION: No acute airspace disease identified. [facility] Work Phone: Radiology Study observation (narrative) [facility] [employer] Phone: XR CHEST 1 VIEWOrdered By: Jose Alfredo Murrell on 05-16-2022 [facility] Work Phone: Physician Orderon 02-13-2022 Physician Order [id number]#1.00CD:127 Normal [facility] IntraOperative Documentson 0 02-01-2022 IntraOperative Documents [id number]#1.00CD:127 Normal [facility] Coding Summary.on 01-31-2022 Coding Summary. CD:[id number] Gh0bWw+PGhlYWQ+PE1FV DVkD81euIVxmW6VP2fOY W2CAXDYVYZITI4VUP2zf ND7RWqtQ3HwceAh RmqdtMMtTF99TOr3WQL2 kQdsLVouyG7cdVCeA1o7 EsKvOE80oI48MYilWBJm PqB8IkOcbycmgWMl H4niDeZqfMKzTfk+PHRh YmxlIHdpZHRoPScxMDAl CnEqjKsuZR8jNv6vRHJj LWNvbGxhcHNlOiBj h2tfIOMaUMrgJC0tiMlt T9ZgtTA3NJCrf6n1Rl49 dHI+AOLkVHE9nRcnPJgp n354NrTex7wvNKW4 sDIbHWxrXWL4Z38ii9R4 JHDmYXCnSLN0dIY6cI3r uLdvlwwfN1ZnxVRsFuS0 XCZ1xLIqpI4xiHpo zzfefY2oZcj+R64UNS0N USESTI4NJhz8L8KmHach dHI+MZ97BYHyPK67uHJo cIEhx0nirLm5PaRc MCGaRWG9aZlaJEdtn9Ry TMGvQ31wmENhy5K0VHZf tIpkyFPmHdPvnXC3wW9u KDnqwegkk5qotuur Xwrcv5xinp15aB38B23z KAwlUZRvTNN8YYBcADTp kGejgj4liA5zZi3+IDxj e5tdv6emjZn3LyYy VEDfudAysHaeUEJ8m2Jo Of40H7QpnYkmg2NcWqp3 fb52iRXsw4Q1wZX1SAzf YANbwD3vESwhZgG2 LLPyVbVucE46wVGzPEdg Qe6otBghiVwuWV1xKORh qfzvWABlwO2vQOUocYUf zGzlZI4kASHpxhel s558FbNwLSL1NHFofVWl N5FnwC7tVhBuLLLqLQTb F2TctRUkJMyyU851LEej SbR9QCLqhdLtO3Nn KGOtpSwmHjV3g4W6Jw3F d0NozdrzSSB2HQksEFLe TfR8KoQbDdW5N6CxUml1 SFFaiTzwYO9cH8Ve KGVlsckkvsjwtXZ4BJPa CAJlhZ10iWBtCYfwIe5j b0Q9k307LTSnQSOwyS42 My9mjGjcTEUygGRX uY8ohjpau1uovvjzXeFl EPZcPGh3MJx9NRGhhHob WbJmOHX3CgQ6FPO2wTMj jN8mrWujshaflB3f Oyc+L01gcJ8fKGY4GZI3 ouxdWNUbtsWdUP09DN22 A4HtJbbsaZQkkTA+PGRp irAdaZceUL6eKiRk x3mno3GkLGqzO7PmBZZg QCohLsx5FMJeZQX7iXY9 cZ4kULKvVTaxw9T4rIK4 N2HzdfRhau4cr8qe MTXtZSrsS94jgDUzb3H3 CYQaiZP0XSIqwDqrKhTj jY30Uiv+QLEyyZflp7Tj Vhfoi0niw8brbQc8 IjMwJSIgdmFsaWduPSJ0 n8OjPk11O17hTZtnJVPz PQKgDDLcBCJegHbjjk9x uT6wLy8+PGNvbCB3 lIK3wS1gYTFzSzM1HCad E972VtAjzOBjAscfb5ea r7dkxBz5JzMpWKMaauSv wJwmBIM4t4KmGw98 L21kJBrlSCVfGTGwESLc SIQiyGdxfl5ijB1uIk5+ AI6rz5oxgd97qA28dKP+ XHMuFRR7eUbsKHjq CUDgrE7oKKowXvI1UJSf ToUocW31dPWiKKevQd4m gXjjxIhySQ2nSXXclvmm j280TfNeg3lbKABz aBGtVVfxFGF6G41oh0K8 QLMzWMIxYCM9fHR7qQ4s bGlnbjogbGVmdDsgdmVy aNjzWHggMOqkD789 IHRvcDsnPlBhdGllbnQg XtTmMXb9L5PzLti1WXCw mXdaOA4klGGhZDbxLi5n sWipnNraJJ6fAQOq slcxb887VcZsq0wbZSIf tRVsKTfjJYA3A90sl4D2 ZDUmEBTcMZJ0zGJ0uD9c bGlnbjogbGVmdDsg mlFmiRxgGUhoSXytR221 IHRvcDsnPkJpcnRoIERh uLZ6KZ44KZ44mPFqw6C9 kFP4T1PpVWZtxsup jawefDX1JREmRYLadK12 Zc9hnLsvUa8lFWFsQUP3 NYLgrUVkN1RfqZ2bAqZw GQBjXLWiP7IgoQTt HLavB646KVwvHpV4KXZy opWzI1UuPSMsoGqaLeI7 g8L4Yw1LV9V2DO60GR75 kQPod0H7aIA7S2Ow QNZmbtijnzainPL9NVVz MQYehP10Kc5siQmcOk0k PXVxFRP6ATGkhDPjJ5Sh tI4gZoSnVRVhYXJu F3WjkOCmMHxcA055RDsn LdA7SDFesbTsB9PhTOJq rPmkCeD5u1M0Eg3QXMd4 RE85PB20iCSix3W7 vHK0Q0WtYHJkkryylejm vFF7FONiSZZpnE82Zo8n dUyoNv3hEJAeMFU9WFNd gRSuN7XusZ7uSvGa PPLbXGOoK5IamDQpEOow A773IXxgImW9SKJukrQp I0TtQOUkgEevNgY8f9I7 Yi2EHJNmQX87RWK7 dMM5ZS93WO83A3OwWnlu dGFibGU+PHRhYmxlIHdp ZHRoPScxMDAlJyBzdHls NG0sMp1jWOAzLNYz jWzyeMPcGsHla6odBRWo AKofPU2woPmyT6NkoYZ7 XAZaf0s6Eb39S88wP3Mw dXA+JGNixXT8bRH6 yC4gVcXxJyX6HZlbZ739 KcVjqGLxThsco9dtd7cz dWe6TuE4ZRLcwwAesNrs ZIE3j6WpAc73T96w IHdpZHRoPSIxNSUiIHZh yQpjyf9lkG2lOc3+PGNv bKC1tSG6wP4sAwKwGbS0 WDaiD663JrIfhLLc Gpsaw6ixo5tsaKq4DaKv YCPohsYdkCzsYTD7b5Dw Wm81Y8BkzPaci8KhOwx1 vi37nNXfh9R9bRT8 X6XsZLTlffogiVViuDos YA5uFAWtkosdQXJxhA5y OSVaG2x2EsLxMcG5HQbq O4BjgxC0XAPuiDEc HXmlHYX5J81no8K4RQWz QELhCZN2wIL1eF1zpDfj bjogbGVmdDsgdmVydGlj KObeNAhcP552VNId aQrgARRraP5lSONzmUZs hWebPZ1uCDLebzoqTxtE SK0NUOESHEgCXYSRFWN5 G7RxFgo5FMPraAxl XT8wlBTkTSsmHs6kcPdr hAlaWP5gROFgqtfqMBGs bZ7lGHEgfDFgcValDU0s CERgeekaa138IzEe AII8FVVvaPEdO2FkhE7n FzCdHLMhZQCnE6JybCAq VOuaV747ADxqObA9ZQLa qeQxG6HxGZSwbWuv EsM2i5P0Hx8nZQ1sDR5c WEchOS90VX62xVXaq9D8 tAF3Q7OpIBQguquhdigk kMC6NAWrGNLitT76 lEKoURfoDx9hr6O9o412 TZXyHTArtT78Ev8uiCnf DVVbpIXLpY9ownrgm7ca cjogIzAwMDAwMDt0 OUh8RWCeuRouFzRnUZZ8 DmK1BPT4aNDwlE5dcQzd cwrjqY0gFpq+NDggWWVh jjN7M4UmDxg9TWXk xCxsUC7jbRPsDYlfZk9p fApzlJwoBW8eGPZkdpcy UTNyfM9bWQXisPEwlSkv YR6yWWUavtaea048 JcYrSNB6RKTzfDDoU6Mc rW9jIjDqAMOuTFTbW3El bRVwZIfbR393ZHrjPnF4 OQCuqpLhL0YtMETa zRysRiC6a7T2Qu7ZJHbn TE94JZ34lGSuu2J4tBQ4 F1CpBGOwmzdaopdnpBJ8 ORDhMBRsqH86wHNy NDorIq6ii9P1m442ZZQl JKMxtR01Oh1cxIovSISq kZWLgP5ixudnk8frojze CtAuCUQrGLj9PHf3 GZPhvNmbDtHiNSL9WmV8 PVG0zEFzjM0dlHfzlovl yZ6oGmt+Y3O5mNE2qQUr dDwvdGQ+ZI16np95 Q1PqNqyjHnq3IRHvDOY6 uFH2tT8vPXAzNRosx8B1 oHZ3P5ObhuUmkp8fn0kv MPYoXGuiR87acSGd u0R0DJHyjDF4TLZnnWtz IkFclJ57Rkh+PGNvbGdy a9ZdThmln2lgw0rtmBd4 IjMwJSIgdmFsaWdu QSI0j3ZmCj03Q92iSLys ZHRoPSIzMCUiIHZhbGln ib5maM4pQt8+PGNvbCB3 dUX4jT0iEiItAqH6 SJusL213BsWxhBXbImla d5jmd0udnEq3YkRaUFQh cpQguXweOHF3f3FgUz01 J1YpgOvql9IaNec0 ys82uBSsi6R8pGE1L3Ad FLQqucdzwEBlqGlkQM3j UTXghgdsNLWyhK7hFYIy H6g2CrRtYsW9YEow Z2DcetX3TBFecYWyNOCo kODAoD6zhwhgr4wmjvni GoYtTJMyIPf5GJe5MTLy pAssJfGiTXG1AoU5 NUI8uOZtoT3hcTirvrfg eR6gSph+QKs4y3ngxKNz DG2kzJM3TF52NJ19wTCj x1S2iXK3U3DhRKTa aitpuqgnwDW9KARkXREi pQ58Id9xjFyxWq3dJDYg HQF5YKVueFLlY8YzfH5x VsOfDWHgGFApR9Hf vGOaNPzzE923WGzvThE6 QUMuwiCqC4SyVXBqaGua DbL0r0Q3Hw8NBX26QX95 SN62dIMkv6T1cJT2 I6TeGQDvxuwhpwcufYG9 AZDsNQMzzD18Mq5dyPft Cd2bYNRrIFD0MDYmeREd L3UmlG4wKbCiBRFb PYGzS0TnuRAkRLyfP993 ZQyuXxC1QAVswzOoO7Ox BAMrxIgvQzT5f4W9Dk0I Uk80RK56PH66aTCz y0P4wKD2I7GzVHBvqsey ocjmkWI5ICZlYWPleB17 Oy1mbLkwAq6iOBOlQXN8 NSVumNEpP6IjgE5s QcNgDUIhJPHaI1VhuSEs EUfiG634DJnvDmN0RQYo ogImO3WiIVVcvSdcQfY2 i8T8Bs4FPUarrjb3 D9ZwYpymvAZ+MS18LWFi BI10sAUxiHOsp8qcwFd9 QpZdVTAbEHL6zOazQIxa p9FuRWJyU61cqWLk c2U6 (more content not included)... Normal [facility] US LE Venous Duplex Righton 01-27-2022 LE Venous [...] Pringle M.D. Transcribed by: GARCIA Technologist: RAMON [facility] Consent for Treatmenton Consent for Treatment [id number] #1.00CD:127 [facility] Physician Orderon 01-26-2022 Physician Order [id number] #1.00CD:127 [facility] Coding Summary.on 01-25-2022 Coding Summary. CD:[id number] Gh0bWw+PGhlYWQ+PE1FV NWdW10ljINyaP4HW4mWF Q3YMWNFBIAEKM0LNK6wf IE0DWixD3IklgYd FwfuvJDlOX08WUe6QYE7 hNbdONepsL5tsQYuC4g0 RqFaNE72aU17UBrjQAGb HcS7HaRudqhjrAFx R6guSnXfiUAlHoa+PHRh YmxlIHdpZHRoPScxMDAl EfMurOvlGF7hDk3nBFGm LWNvbGxhcHNlOiBj e4syGAGvMSmhWV2heQzl A4GpkCT5UKPpq8g4Bu16 dHI+HABnBXC8eYijHCff h535KjBfa4etILH6 tKRaHYwpSFM6Z04dv5T6 WBGuFCVyEBE4hKY2aA6y aXhqcewoJ8NpkLKrXsH9 XJK3aLOzkE3tdWse cfipsQ1vWlp+M91HTC1O FQJSZU2BOet4Q4WrOqrm dHI+BK78QQBwEG37zGZy pYKmp4ilkWr5EdDd NLSgPJY7vElzNLvcg8Hh BRTkP06smFCnq1F9YYAu lZnedEIyJaMhtAN9hF2u JVpsnvfmh8bjspua Xpcsz4eyfd28sL39N93k VTdxRXXpKEC3KSAoODQg fEzvtr7dxS6lCc0+IDxj r2rca0gmxIn5DjZn HFZqioTpzBmjICY9n5Cm Ut34J1YqmPizv2FsIcs6 at50gSPpp8R5lLG3EYzt WHXfdH7tZXccYyE6 ZWKoYcDalR60yGIbJJxi Yy5xdZiskMgtJA0bQECc jwhsHWYgjH8bEXRnyFMr uCliLO2dFLBkgfiz w286SjOpRLY5YWHrsCJa L5IhzP2iIzMgEXSnBNPc N2PjsGYjZRbaD921PJii PzI3JXJcmeEbI7Ru JASnzUtoYmE2w4Q8Ns4E b1CygouwWVH4NBbfWRNk TkGxLbPuZmN1B2ZyBrk5 LFDanWcwGZ9zA4Is DSCjatmvffbbyFQ9HJSq ELUznT83oRJdUExlWa5p e8F1m277OQRxUHAltS29 Yz7upCvmLQKhlGNJ pF4myeiml4fnhdnsFfZb ZIDkAHe0KHc0EGAnsPjm LcZgGDG6MyC8QML2yVLl kO0vtXlhyypkyD7x Oyc+O66juD9dAMS3HJO5 bvkfIDClgxZvXN67EJ47 B1KsHaccjAHcxJY+PGRp kcRnaQheWV2fGzFs h2jyx7FaTPlaJ2ZhGXBg MIztAzn5VVYmHPX8xCG4 iP8hZULcPRzgw8D7fHD4 R0UwyqItgz6hl3mf GSByPHauU55scXZbd1T1 LLNrkVR8UGZxsQnkBwXy jC66Wif+QRXugRwye6Oa Msppg4iix4ufxKn6 IjMwJSIgdmFsaWduPSJ0 m2MaVp76H15hCLryTJBr NVPsZREmICGshLtzub8z eA0aJj6+PGNvbCB3 pBP3lA1bOKUdUsU8DRny P790FjOkhAWwZlxya9ii n2aarWj3BjNtFJNtppOh eUxcZYX9f9UtFw94 Z00jRGdpIEEqTAKzRLRu GDTtaQyipg2qgN2oWj2+ BD6oq7qkgz84kZ67dEL+ HEVuPUG1nDjqVLtl EXIwiU6aGRukTxW9GRDl XxOyhL40nFLyHPpxAk4l oLsdvHcfVS0cGJKndoyy n421EpGax6twGBFv gLFsFMvpKGK9C86yw0F0 NHMdMWLrDFQ3tJU5uQ3q bGlnbjogbGVmdDsgdmVy oFkuIWgfUQauL266 IHRvcDsnPlBhdGllbnQg NuFzZAe9D1JrMep9BIZk jHzrZW8eyQXmWQcuVt9w aExtpZuwWR5nPZOr cqtth757CeHqg3gvKXTx sJPoFTqmRVR7E30wh2V7 VJBkAZHrYAX0pVU3iN9d bGlnbjogbGVmdDsg fkTjpBnwPGzsUCdzC010 IHRvcDsnPkJpcnRoIERh lEP0HR98HX54dCEeg7J6 dOJ8J0VqUWEkygyw obthrBA0WUAbFMRneV47 Gr0ftOpqZp2eTOUcKWB9 XYGsiTEfF8ZehQ7qGlBk DBFkEHWsP0BfcTRm LQnaD687UGupYfP6TKFv iiKpJ1CpSLYuaNwfWmH4 o1J6Ca4JU0Z6EK15SD04 tKRyz2E5pLY7P3Iu WXNpmgyrbfvvpVR4ORFb MBDfwU87Vt7wmVhnAx4l GBWvBFF7VOPdnZEnX4Ei bV5dLhFvDHJyWSXw G1ZizKXjIBqnH797IAyc OfQ2UOXhpbJpO6FgEGQh uKptDbU1b4Y6Tr6NDDg4 JC60NF51fITqs2V1 jLF7Z7LpZKGnakdmlvhk kDL9NJBuMGDgrY47Ap4p lYaoIh5vTPZqRXH9THGm tCFbI4CkeU4bPnLo ZKRlSVLjF8KbdYLxSKsz E829RJwiCnN7KDXkrjKb N0WjYRRzaAtuGhT5b7P0 Tp8BQUBxQO91KPR5 gCR8HZ66KD52L7GsGdvv dGFibGU+PHRhYmxlIHdp ZHRoPScxMDAlJyBzdHls OM1sWd9yMTRzECDk fTxstLIeLvLih0zdAOXi DCwuFH5mcSlvN8JujGO3 OADzj8q5Se09Q44kA1Pk dXA+DUNdnAU0iUY8 bU0kEeIfBrC0RGaqS785 XtYzuFKgNvnsx7tep2uj nRu8OvN9DZYzfyBdoFpm KSR0m4SoVz15Z71s IHdpZHRoPSIxNSUiIHZh jAbfxz0jmD3rRx7+PGNv mRW6pYR6oN4zWwXuFyR2 RStpN209NkKtdNIv Myvtf8hjg9mwrJe7DvCi SUAmlxUruPlxHBI1p0Yt Ca94C0WprXibh1EgQdg5 js41rJAgk0E2xRZ4 I7AsGYKifquhiNYsdBtz NW8iXDWufklfICAgpM4x OXAdF3z7AtRbOrC1JHhc D7HkqeZ8ZWHimKSj AGxiBBQ7L19xo9J2DOYa HNJiPDI7lFY3oJ5skRlb bjogbGVmdDsgdmVydGlj YTpnTKziJ256HUEd qEynZUMhxF1rMTWzeQWv xNxyLV8xXYPnbuuhAohS ND5ILKWENJoFOXFFAPB3 X5UuBvc8ECNtmQzl AD9jvUIlJLyyGc8jiMya vRwqLI3cRXRyvoogAQLs xF3gRZEqsXPsxMucRP7h GCGzsmcfv788LcSz JAO8OUDsgBJeR8UwrR6h DzVcOKVtCZGqZ4SsuBFi MCywZ243OCtdVjS8WUJi mrBkC9NbTSUapCxp MjN3v9F7Mr5kEO7cSO9l YItyMI39PC00vBHny5W1 eFV3Y1FfAPHepxozhtas nMJ1YVSzBRTwpC31 wIDxNOxaLc7cj7D0g948 NYIzTMUnnY48Ne1bhEnj PTUdcFWDkG7lyxjyf6sz cjogIzAwMDAwMDt0 HKy6OLZyuAtqBlOtSYF1 RsW9YNP9aPUboH9fnKck ehjauG0bLnj+NDggWWVh glM6M4EkZou7KCWl bLjqVC8jxYMbRZjvYo9r iNqehTsqWV8jAUHfopon FHTnzE7gOGTsuNUjzHko IN2kLPPthpxzb451 FrYoYQZ3HXWnzNGsJ8Qh lB2bStSjTTDbCDLkG9Hk fIMtMKcgR880FMpgLvY5 AMGqciMsH5ZuESNw vGxrGlJ3c9B3Bi2ERDct XL44AT78aINdn5H7kAP5 M4NuNIJifyxxpcgieOH7 PEFaZGLetA35jCRk CNaqXs2wl8A7b416JFAh JMNkmG45He0ayFeqNWSi pGTBaJ2fhpzgl8xojfcs GnBhPLLcOKp5LYr8 VJYhwTnzWkDmUOV5QnF2 LNV7hKXzzR1xkSvepdoq oD4vQvh+RE2qlCghnX7t wF2JEF4rKVIvzHSG gTGgCTT5JY56PE65H2Lj PjwvdGFibGU+PHRhYmxl IHdpZHRoPScxMDAlJyBz nZgdEL4iMy6cNEEi DKUikYatxPOpXaAgg4yu OGHdICodBF3xkRkgU3Wi uYT3WBZds6x6Kj22F55s W6UerRT+PGNvbCB3 yST8rE5tFxYrIiK9AFht K981HbPyiMTfRmjlc1py t6hodHu2FqEtMKWkdeQi nVwhLSR1w8CmBa02 Y24uISswVLWfHSZhUREq KBErxTgzcj7rcG3tWx9+ OTGvwRD0bHS1dI0yInTq JaT0BGehW538TsCg mTGcQnooL35pY7BewJL+ JJEoPxx2VKGbtPviHT5h bOWsBDrgOw7kXQY9UsCf NrTrDLkvU5HsONJh mknukqdzmAS9REGxPFKg hR35Jq1ilLpvYx4xMTKu VHX4UWHcnOMlC7CrmT1f RjVvLMFlSQPfO8Iw tWAlDXiaE436FMdaHfM1 FRYbmlQqU2BtVUQfrJym HfL4s4F8Yo0DiSvluKRu AD7uWrVqCBa9M1Ja Grz9AZXecVwzFR9wrGMx UKlsMl9otQxwxJbnDD0j EHEuekegr731OzQxv0sp IDEwcHQgVGltZXM7 O74yp1G9LZSyLYGxFHM0 kNM4vA1noKbioaafnFLd dDsgdmVydGljYWwtYWxp E737HITrkTddTnCV Ktm4W5HjUqd8FKZlqJbe GX6nyPKvQEseAa9qwIcp qFvpDH5mRGHkafryr171 DvTsc5saUNJikHTc JBfpZSI9C69jc7U6WKDe RHEqTSY1aET5jE5sgLmv bjogbGVmdDsgdmVydGlj WDphDXpsS300DRFj bYalLo4DLhl7H8NqPbj0 PYLtsSpeJN8ywJWtZZpx Zj6ggZvqyQpwPF2vSUDt ollno934AqIzc9kg MTQmsNPhFWpwDNM3K52e m0R5GKSbIDEwECH5rNK9 aF6lmZqritooeHAlcLjc dmVydGljYWwtYWxp S138PAMgkQgmNbCdtYDu OjwvdGQ+GN82yr80F0Tt HfrnRwz3EQFsSWM7nTP4 iA2jLSJoWXbls0V3 bGU9 (more content not included)... Normal [facility] Blood Bank Slipon 01-24-2022 Blood Bank Slip [id number]#1.00CD:127 Normal [facility] Consent for Anesthesiaon Consent for Anesthesia [id number] #1.00CD:127 Normal [facility] Discharge Instructionson Discharge Instructions [id number] #1.00CD:127 Normal [facility] IntraOperative Documentson 0 01-23-2022 IntraOperative Documents [id number] #1.00CD:127 Normal [facility] Preoperative Documentson Preoperative Documents [id number] #1.00CD:127 Normal [facility] Preoperative Documents [id number] #1.00CD:127 [facility] Prescriptions/Work Noteson 0 01-23-2022 Prescriptions/Work Notes [id number] #1.00CD:127 Normal [facility] ABO/Rhon 01-22-2022 ABO/Rh Positive Invalid Interpretation Code [facility] Comment on above: Performed By: #### 1 [id number], [id number] ####[facility] [address] [place] [address] ABO/Rh History Checkon 01-22 ABO/Rh History Check Verified Hx Blood Type Normal [facility] Comment on above: Performed By: #### 1 [id number] ####[facility] [address] [place] [address] ABSCon 01-22-2022 ABSC Gel Interp Negative Normal [facility] Comment on above: Performed By: #### 1 [id number], [id number], [id number], [id number] ####[facility] [address] [place] [address] Blood Bank ID#on 01-22-2022 BBID# [id number] Invalid Interpretation Code [facility] Comment on above: Performed By: #### 1 [id number], [id number] ####[facility] [address] [place] [address] Capillary Glucose POCon 12-27 Glucose [Mass/Vol] 168 mg/dL High 55-99 [facility] Comment on above: Result Comment: Kala clara Meter Performed By: #### 2 [id number] ####[facility] [address] [place] [address] H&P Updateon 01-22-2022 H&P Update [id number]# 1.00CD:127 Normal [facility] Inpatient Patient Summaryon 01-22-2022 Inpatient Patient Summary [facility] [address], [place] [address] [facility] Clinical Discharge Instructions PERSON INFORMATION Name: HARI THORNTON PHYSICIANS Admitting Physician: Malina Ballard DO Attending Physician: Malina Ballard DO PCP: NARAYAN GAGNON DO Discharge Diagnosis: Localized osteoarthritis of right knee Comment: PATIENT EDUCATION INFORMATION Instructions: Post Op Patient Instructions - FT (CUSTOM); Isamar - Total Knee Arthroplasty (CUSTOM) Medication Leaflets: Follow up: With: Address: When: Malina Ballard [address] [place] [address] [facility] () Comments: Keep scheduled appointment MEDICATION LIST Medications [...] every day., high heart rate Comment: Normal [facility] Main OR Intraoperative Recor billy 01-22-2022 Main OR Intraoperative Record IntraOp Document Type FT Summary Primary Physician: Malina Ballard DO Finalized Date/Time: 01/25/22 14:15:40 Pt. Name: HARI THORNTON/Sex: 1975 Male Med Rec #: [id number] Physician: Malina Ballard DO Financial #: [id number] Pt. Type: A Room/Bed: [place] [address] Admit/Disch: 01/22/22 05:52:56 - 01/22/22 17:55:00 Institution: Case Times FT Entry 1 Patient Times In Room 01/22/22 07:05:00 Out Room 01/22/22 08:34:00 Procedure Times Start 01/22/22 07:25:00 Stop 01/22/22 08:28:00 Anesthesia Times Start 01/22/22 07:05:00 Stop 01/22/22 08:34:00 Last Modified By: Nikolai BANSAL, Janette 01/22/22 08:34:16 General Comments: 0655: Patient [...] Entry 2 Entry 3 Case Attendee Shai MASTER PLANNER, Babatunde Ballard DO, Malina Aragon PROFESSIONAL ENGINEER, Narayan Barragan Role Performed MASTER PLANNER Surgeon - Primary PROFESSIONAL ENGINEER/SA Time In 01/22/22 07:05:00 01/22/22 07:13:00 01/22/22 07:05:00 Time Out 01/22/22 08:34:00 01/22/22 08:14:00 01/22/22 08:32:00 Procedure KNEE TOTAL KNEE TOTAL KNEE TOTAL ARTHROPLASTY(Left) ARTHROPLASTY(Left) ARTHROPLASTY(Left) Comments Dr. Alberto supervising Last Modified By: Nikolai BANSAL, Janette 01/22/22 Nikolai RN, Janette 01/22/22 Nikolai BANSAL, Janette 01/22/22 08:34:19 08:34:19 08:34:19 Entry 4 Entry 5 Entry 6 Case Attendee Sedrick PROFESSIONAL ENGINEER, Amee Rodriguez PROFESSIONAL ENGINEER, Cas Menchaca RN, Janette Role Performed Scrub - Primary Staff - Other Supervisor Ovens - Primary Time In 01/22/22 07:05:00 01/22/22 07:05:00 01/22/22 07:05:00 Time Out 01/22/22 08:34:00 01/22/22 08:21:00 01/22/22 08:34:00 Procedure KNEE TOTAL KNEE TOTAL KNEE TOTAL ARTHROPLASTY(Left) ARTHROPLASTY(Left) ARTHROPLASTY(Left) Comments 2nd scrub Last Modified By: Nikolai BANSAL, Janette 01/22/22 Nikolai RN, Janette 01/22/22 Nikolai [...] 01/22/22 08:34:19 08:34:19 General Comments: [facility]ardo [facility] present for case.-ROLF Martinezcrusher tender Protocols FT Pre-Care Text: Implements protective measures [...] Out Babatunde Gibbons CRNA, Given Participants Isamar DO, Mahesh Honeycutt CST, Sedrick Casanova CST, Jennifer Tian CST, Nikolai [...] With Outcomes Met? Yes Last Modified By: Nikolai BANSAL, Janette 01/22/22 07:33:07 Post-Care Text: The patient received [...] (Pre Procedure) (more content not included)... Normal [facility] Main OR PACU I Recordon 12-27 Main OR PACU I Record PACU Phase I Document Type FT Summary Primary Physician: Malina Ballard DO Finalized Date/Time: 01/22/22 09:40:25 Pt. Name: HARI THORNTON/Sex: 1975 Male Med Rec #: [id number] Physician: Malina Ballard DO Financial #: [id number] Pt. Type: Room/Bed: [place] [address] Admit/Disch: 01/22/22 05:52:56 - Institution: Case Times [...] By: Janna Hi RN 01/22/22 09:40 Normal [facility] Main OR PACU II Recordon Main OR PACU II Record PACU Phase II Document Type FT Summary Primary Physician: Malina Ballard DO Finalized Date/Time: 01/22/22 19:01:52 Pt. Name: HARI THORNTON/Sex: 1975 Male Med Rec #: [id number] Physician: Malina Ballard DO Financial #: [id number] Pt. Type: A Room/Bed: [place] [address] Admit/Disch: 01/22/22 05:52:56 - Institution: Case Times [...] Signed By: Connie Mosqueda RN 01/22/22 19:01 [facility] Main OR Preoperative Recordo n 01-22-2022 Main OR Preoperative Record PreOp Document Type FT Summary Primary Physician: Malina Ballard DO Finalized Date/Time: 01/22/22 07:28:30 Pt. Name: HARI THORNTON/Sex: 1975 Male Med Rec #: [id number] Physician: Malina Ballard DO Financial #: [id number] Pt. Type: A Room/Bed: [place] [address] Admit/Disch: 01/22/22 05:52:56 - Institution: Case Times [...] By: Janette Menchaca RN 01/22/22 07:28 Normal [facility] Monitor Recordon 01-22-2022 Monitor Record [id number]#[id number]:127 Normal [facility] Operative Reporton Operative Report SURGERY DATE: 01/22/2022 [...] utilized for bone preparation and copious irrigation. [place] [employer] cement was mixed. All components were [...] PATIENT CONDITION: Satisfactory Too [place] Dictated: 01/22/2022 [id number] Transcribed: 01/22/2022 cc:Narayan Gagnon D.O. [facility] Comment on above: Result Comment: Elec [...] undergo general anesthesia for the proposed procedure. BRAIN [place] Dictated: 01/22/2022 [id number] Transcribed: 01/22/2022 Normal [facility] Comment on above: Result Comment: Elec tronically Signed By: Babatunde Gibbons CRNA\.br\Date and Time Signed: 01/22/22 10:13 EST Outpatient Surgery Discharge Instructionon 01-22-2022 Outpatient Surgery Discharge Instruction [address] [address] Patient Discharge Instructions PERSON INFORMATION [...] Follow up: With: Address: When: Malina Ballard [address] [place] [address] [facility] (1) Comments: Keep scheduled appointment Pharmacy Information: You may receive a survey from Kimberlee Le asking you to rate your care experience. Your feedback is important and will help us understand what we do well and how we can improve the quality of care we provide to you, your loved ones and our community. It?s an honor to serve you. Thank you for choosing [facility] HERE ARE THE MEDICATION CHANGES THAT [...] high heart rate PATIENT EDUCATION INFORMATION Instructions: [place] [facility] DISCHARGE INSTRUCTIONS TOTAL KNEE [...] physical thera (more content not included)... 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 It is therefore advised not to drive until after your first office visit following surgery FOLLOW-UP OFFICE VISIT: Malina Ballard, DO [facility] [address] [place] [id number] [phone] Reviewed: 03-02 [facility] Progress Note-Physicianon Progress Note-Physician Patient: HARI THORNTON [facility]: [id number] Age: 46 years Sex: Male : 1975 [...] = 1 (more content not included)... Normal [facility] Comment on above: Result Comment: Elec tronically [...] Routine, Start date (more content not included)... [facility] Comment on above: Result Comment: Elec [...] Frankel MD Transcribed by: GARCIA Technologist: [facility] Consent for Procedure/Surger yon 01-19-2022 Consent for Procedure/Surgery [id number] #1.00CD:127 [facility] Outside Recordson 01-19-2022 Outside Records [id number] #1.00CD:127 [facility] Basic Metabolic Panelon 12-3 Anion gap [Moles/Vol] 13 mmol/L 9 - 17 mmol/L [email or web address] Calcium [Mass/Vol] 10.2 mg/dL 8.6 - 10. 4 mg/dL [email or web address] Chloride [Moles/Vol] 103 mmol/L 98 - 107 mmol/L [facility] CO2 [Moles/Vol] 23 mmol/L 20 - 31 mmol/L [facility] Creatinine [Mass/Vol] 0.59 mg/dL Low 0.70 - 1.20 mg/dL [facility] GFR >60 >60 mL/min [facility] GFR Non- >60 >60 mL/min [facility] Glucose [Mass/Vol] 147 mg/dL High 70 - 99 mg/dL [facility] Interpretation and review of laboratory results Abnormal [facility] Potassium [Moles/Vol] 4.4 mmol/L 3.7 - 5.3 mmol/L [facility] Sodium [Moles/Vol] 139 mmol/L 135 - 144 mmol/L [facility] Urea nitrogen (BldV) [Mass/Vol] 10 mg/dL 6 - 20 mg/dL [facility] Urea nitrogen/Creatinine (Bld) [Mass ratio] 17 [facility] CBC Auto Differentialon 12-3 Absolute Eos # 0.09 [facility] th Absolute Immature Granulocyte 0.06 [facility] Absolute Lymph # 2.21 [facility] alth Absolute Dixon # 0.68 [facility] lth Basophils (Bld) [#/Vol] 0.06 10*3/uL [facility] Basophils/100 WBC (Bld) 1 % 0 - 2 % [facility] Differential Type NOT REPORTED [facility] Eosinophils/100 WBC (Bld) 1 % 1 - 4 % [facility] Hematocrit (Bld) [Volume fraction] 41.6 % 40.7 - 50.3 % [facility] Hemoglobin.gastroin testinal spec 1 Ql (Stl) 14.2 g/dL 13.0 - 17.0 g/dL [facility] Immature granulocytes/100 WBC (Bld) 1 % High 0 [facility] Interpretation and review of laboratory results Abnormal [facility] Lymphocytes/100 WBC (Bld) 35 % 24 - 43 % [facility] MCH (RBC) [Entitic mass] 32.1 pg 25.2 - 33.5 pg [facility] MCHC (RBC) [Mass/Vol] 34.1 g/dL 28.4 - 34.8 g/dL [facility] MCV (RBC) [Entitic vol] 94.1 fL 82.6 - 102.9 fL [facility] Monocytes/100 WBC (Bld) 11 % 3 - 12 % [facility] NRBC Automated 0.0 0.0 per 100 WBC [email or web address] Platelet distribution width (Bld) [Ratio] 11.9 % 11.8 - 14.4 % [email or web address] Platelet Estimate NOT REPORTED [email or web address] Platelet mean volume (Bld) [Entitic vol] 9.5 fL 8.1 - 13.5 fL [email or web address] Platelets (Bld) [#/Vol] 293 10*3/uL [email or web address] RBC (Bld) [#/Vol] 4.42 10*6/uL 4.21 - 5.7 7 m/uL [email or web address] RBC (Bld) [#/Vol] NOT REPORTED [email or web address] Segmented neutrophils/100 WBC (Bld) 51 % 36 - 65 % [email or web address] Segs Absolute 3.18 [facility] W[facility] (Bld) [#/Vol] 6.3 10*3/uL [email or web address] WBC (Bld) [#/Vol] NOT REPORTED [facility] EKG 12 LeadOrdered By: Zheng Anderson on 11-23-2021 Atrial Rate 77 BPM [email or web address] Work Phone: P [place] 66 degrees [email or web address] Work Phone: P-R Interval 156 ms [email or web address] Work Phone: Q-T Interval 370 ms [email or web address] Work Phone: QRS Duration 92 ms [email or web address] Work Phone: QTc Calculation (Bazett) 418 ms [email or web address] Work Phone: R Cheswick 54 degrees [email or web address] Work Phone: T [place]wick 74 degrees [email or web address] Work Phone: Ventricular Rate 77 BPM [email or web address] Work Phone: [email or web address] Work Phone: EKG 12 Leadon 11-23-2021 Normal sinus rhythm with sinus arrhythmia Possible Left atrial enlargement Nonspecific ST abnormality Abnormal ECG When compared with ECG of 16-NOV-2020 09:53, QT has shortened Confirmed by COCO ANDERSON ([id number]) on 11/23/2021 12:44:06 PM [facility] Coco Anderson MD - 11/23/2021 Normal sinus rhythm with sinus arrhythmia Possible Left atrial enlargement Nonspecific ST abnormality Abnormal ECG When compared with ECG of 16-NOV-2020 09:53, QT has shortened Confirmed by COCO ANDERSON ([id number]) on 11/23/2021 12:44:06 PM [facility] Work Phone: Hemoglobin A1Con 11-23-2021 Glucose [Mass/Vol] 214 mg/dL [facility] Comment on above: The ADA and AACC rec ommend providing the estimated average glucose result to permit better patient understanding of their HBA1c result. HbA1c (Bld) [Mass fraction] 9.1 % High 4.0 - 6.0 % [facility] Interpretation and review of laboratory results Abnormal [facility] - Chemistry and C hemistry - challengeon 11-23-2021 GFR/1.73 sq M.predicted MDRD (S/P/Bld) [Vol rate/Area] [facility] Comment on above: Average GFR for 40-4 9 years old: 99 mL/min/1.73sq m Chronic Kidney Disease: <60 mL/min/1.73sq m Kidney failure: <15 mL/min/1.73sq m eGFR calculated using average adult body mass. Additional eGFR calculator available at: http://www.[employer]/multiple_crcl_2012.htm Stage 1: Some kidney damage normal GFR Stage 2: Mild kidney damage GFR 60-89 Stage 3: Moderate kidney damage GFR 30-59 Stage 4: Severe kidney damage GFR 15-29 Stage 5: Severe kidney damage GFR <15 ESRD - chronic treatment by dialysis or transplant No Panel Informationon 11-23 [facility] TSH without Reflexon 021 TSH Qn 3.67 m[IU]/L [facility] Urinalysis with Microscopico n 11-23-2021 - [facility] Amorphous, UA NOT REPORTED None [facility] lt Bacteria, UA NOT REPORTED None [facility] Bilirubin Urine Negative NEGATIVE [facility] Casts UA NOT REPORTED /LPF [facility] Color, UA Yellow Yellow [facility] Crystals, UA NOT REPORTED None /HPF [facility] Epithelial Cells UA 0 TO 2 [facility] Glucose, Ur Negative NEGATIVE [facility] Ketones Ql (U) Negative NEGATIVE [facility] Leukocyte esterase Test strip Ql (U) Negative NEGATIVE [facility] Mucus, UA NOT REPORTED None [facility] Nitrite, Urine Negative NEGATIVE [facility] Other Observations UA NOT REPORTED NOT REQ. [facility] pH, UA 6.0 [facility] Protein, UA Negative NEGATIVE [facility] RBC, UA 0 TO 2 [facility] Renal Epithelial, UA NOT REPORTED 0 /HPF [facility] Specific Swengel, UA 1.020 [facility] Trichomonas, UA NOT REPORTED None [facility] ealt Turbidity UA Clear Clear [facility] Urinalysis Comments NOT REPORTED [facility] Urine Hgb Negative NEGATIVE [facility] Urobilinogen, Urine Normal Normal [facility] WBC, UA 0 TO 2 [facility] Yeast, UA NOT REPORTED None [facility] Glucose, Whole Bloodon 11-24 Glucose [Mass/Vol] 141 mg/dL High 74 - 100 mg/dL [place] Interpretation and review of laboratory results Abnormal [place] COVID-19on 11-19-2020 SARS-CoV-2 [place] SARS-CoV-2 Not Detected Not Detected [place], [place] Comment on above: The specimen is [...] this assay. Fact sheet for Healthcare Providers: https://www.fda.gov/media/721508/download Fact sheet for Patients: https://www.fda.gov/media/502293/download METHODOLOGY: RT-PCR SARS-CoV-2, Rapid [facility] [place], [place] Source .THROAT SWAB [place] Comment on above: CORRECTED ON 11/17 Jose Alfredo Barragan 1007: PREVIOUSLY REPORTED .NASOPHARYNGEAL SWAB MRI BRAIN W WO CONTRASTon Unremarkable MRI of the orbits. Old right basal ganglia lacune. Mild chronic microvascular disease within the periventricular white matter. [place] EXAMINATION: MRI OF THE BRAIN WITHOUT [...] The soft tissues demonstrate no acute abnormality. [place] Tod, Mhpn Incoming Radiant Results From [employer] - 11/17/2020 11:22 AM EST EXAMINATION: MRI [...] microvascular disease within the periventricular white matter. [place] Basic Metabolic Panel (BMP)o n 11-16-2020 Anion gap [Moles/Vol] 12 mmol/L 9 - 17 mmol/L [place] Bun/Cre Ratio 14 [place] Calcium [Mass/Vol] 10.2 mg/dL 8.6 - 10. 4 mg/dL [place] Chloride [Moles/Vol] 100 mmol/L 98 - 107 mmol/L [place] CO2 [Moles/Vol] 23 mmol/L 20 - 31 mmol/L [place] Creatinine [Mass/Vol] 0.66 mg/dL Low 0.7 - 1.2 mg/dL [place] GFR >60 >60 mL/min [place] GFR Non- >60 >60 mL/min [place] Glucose [Mass/Vol] 145 mg/dL High 70 - 99 mg/dL [place] Interpretation and review of laboratory results Abnormal [place] Potassium [Moles/Vol] 4.2 mmol/L 3.7 - 5.3 mmol/L [place] Sodium [Moles/Vol] 135 mmol/L 135 - 144 mmol/L [place] Urea nitrogen [Mass/Vol] 9 mg/dL 6 - 20 mg/dL [place] CBCon 11-16-2020 Erythrocyte distribution width (RBC) [Ratio] 12.3 % 11.8 - 14.4 % [place] Hematocrit (Bld) [Volume fraction] 40.6 % Low 40.7 - 50.3 % [place] Hemoglobin (Bld) [Mass/Vol] 13.7 g/dL 13 - 17 g/dL [place] Interpretation and review of laboratory results Abnormal [place] MCH (RBC) [Entitic mass] 32.5 pg 25.2 - 33.5 pg [place] MCHC (RBC) [Mass/Vol] 33.7 g/dL 28.4 - 34.8 g/dL [place] MCV (RBC) [Entitic vol] 96.4 fL 82.6 - 102.9 fL [place] Platelet mean volume (Bld) [Entitic vol] 9.4 fL 8.1 - 13.5 fL [place] Platelets (Bld) [#/Vol] 210 10*3/uL [place] RBC (Bld) [#/Vol] 4.21 10*6/uL 4.21 - 5.7 7 m/uL [place] WBC (Bld) [#/Vol] 0.0 10*3/uL 0.0 per 100 WBC [place] WBC (Bld) [#/Vol] 5.5 10*3/uL [place] EKG 12 Leadon 11-16-2020 Atrial Rate 88 BPM [place] P [place] 66 degrees [place] P-R Interval 164 ms [place] Q-T Interval 392 ms [place] QRS Duration 92 ms [place] QTc Calculation (Bazett) 474 ms [place] R [place] 61 degrees [place] T [place] 90 degrees [place] Ventricular Rate 88 BPM [place] Tod, Mhpn Incoming Ekg Results From [facility] - 11/16/2020 5:30 PM EST Normal sinus rhythm Nonspecific T wave abnormality Abnormal ECG When compared with ECG of 08-AUG-2004 08:48, Nonspecific T wave abnormality now evident in Inferior leads QT has lengthened Confirmed by Adama Aguirre MD ([id number]) on 11/16/2020 5:30:37 PM [place] Normal sinus rhythm Nonspecific T wave abnormality Abnormal ECG When compared with ECG of 08-AUG-2004 08:48, Nonspecific T wave abnormality now evident in Inferior leads QT has lengthened Confirmed by Adama Aguirre MD ([id number]) on 11/16/2020 5:30:37 PM [place] Metabolic Panelon 11-16-2020 GFR/1.73 sq M predicted among non-blacks MDRD (S/P/Bld) [Vol rate/Area] [place] Comment on above: Stage 1: Some [...] body mass. Additional eGFR calculator available at: http://www.Loot!.iHealthHome/multiple_crcl_2012.htm Vital Signs Date Time Vital Sign Value Performing Clinician Facility 09-17-2024 10:57-0400 Body height 167.64 cm DO Adjudica Work Phone: [facility] 09-17-2024 10:57-0400 Body mass index (BMI) [Ratio] 27.8 kg/m2 DO Narayan Ball Work Phone: [facility] 09-17-2024 10:57-0400 Body weight 78.24 kg DO Narayan Ball Work Phone: [facility] 09-17-2024 10:57-0400 Diastolic blood pressure 75 mm[Hg] DO Narayan Ball Work Phone: [facility] 09-17-2024 10:57-0400 Heart rate 128 /min DO Narayan Ball Work Phone: [facility] 09-17-2024 10:57-0400 Respiratory rate 20 /min DO Narayan Ball Work Phone: [facility] 09-17-2024 10:57-0400 Systolic blood pressure 131 mm[Hg] DO Narayan Ball Work Phone: [facility] 07-20-2024 15:05-0400 Body height 167.6 cm Christopher Genesis DO Work Phone: [facility] 07-20-2024 15:05-0400 Body mass index (BMI) [Ratio] 29.7 kg/m2 Christopher Genesis DO Work Phone: [facility] 07-20-2024 15:05-0400 Body weight 83.46 kg Christopher Genesis DO Work Phone: [facility] 07-20-2024 15:05-0400 Diastolic blood pressure 68 mm[Hg] Christopher Genesis DO Work Phone: [facility] 07-20-2024 15:05-0400 Systolic blood pressure 116 mm[Hg] Christopher Genesis DO Work Phone: [facility] 06-24-2024 11:46-0400 Body height 167.64 cm DO Narayan Ball Work Phone: [facility] 06-24-2024 11:46-0400 Body mass index (BMI) [Ratio] 28.1 kg/m2 DO Narayan Ball Work Phone: [facility] 06-24-2024 11:46-0400 Body weight 79.15 kg DO Narayan Ball Work Phone: [facility] 06-24-2024 11:46-0400 Diastolic blood pressure 74 mm[Hg] DO Narayan Ball Work Phone: [facility] 06-24-2024 11:46-0400 Heart rate 114 /min DO Narayan Ball Work Phone: [facility] 06-24-2024 11:46-0400 Respiratory rate 12 /min DO Narayan Ball Work Phone: [facility] 06-24-2024 11:46-0400 Systolic blood pressure 110 mm[Hg] DO Narayan Ball Work Phone: [facility] 05-15-2024 06:52-0400 Body height 167.64 cm DO Narayan Ball Work Phone: [facility] 05-15-2024 06:52-0400 Body weight 79.37 kg DO Narayan Ball Work Phone: [facility] 05-07-2024 10:00-0400 Diastolic blood pressure 63 mm[Hg] Kashmir Consolo DPM Work Phone: [facility] 05-07-2024 10:00-0400 Heart rate 89 /min Kashmir Consolo DPM Work Phone: [facility] 05-07-2024 10:00-0400 Respiratory rate 15 /min Kashmir Consolo DPM Work Phone: [facility] 05-07-2024 10:00-0400 SaO2% (BldA) [Mass fraction] 93 % Kashmir Consolo DPM Work Phone: [facility] 05-07-2024 10:00-0400 Systolic blood pressure 109 mm[Hg] Kashmir Consolo DPM Work Phone: [facility] [employer] 05-07-2024 09:21-0400 Body temperature 98.8 [degF] Kashmir Consolo DPM [facility] Phone[facility] 05-07-2024 07:23-0400 Body mass index (BMI) [Ratio] 28.02 kg/m2 Kashmir Kelly DPM Work Phone[facility] [employer] 05-07-2024 07:23-0400 Body weight 78.74 kg Kashmir Kelly DPM Work Phone: [facility] [employer] 05-01-2024 10:25-0400 Body height 167.6 cm [facility] Rm [employer] [facility] [employer] 05-01-2024 10:25-0400 Body mass index (BMI) [Ratio] 28.73 kg/m2 [facility] Rm [facility] [employer] 05-01-2024 10:25-0400 Body temperature 98.01 [degF] [facility] Rm [facility] [employer] [facility] [employer] 05-01-2024 10:25-0400 Body weight 80.74 kg [facility] Rm [facility] [employer] [facility] [employer] 05-01-2024 10:25-0400 Diastolic blood pressure 71 mm[Hg] [facility] 05-01-2024 10:25-0400 Heart rate 96 /min [facility] [employer] [facility] [employer] 05-01-2024 10:25-0400 Respiratory rate 18 /min [facility] [employer] [facility] [employer] 05-01-2024 10:25-0400 SaO2% (BldA) [Mass fraction] 96 % [facility] [employer] 05-01-2024 10:25-0400 Systolic blood pressure 109 mm[Hg] [facility] 03-12-2024 13:05-0400 Body height 167.64 cm [facility] 03-12-2024 13:05-0400 Body mass index (BMI) [Ratio] 27.4 kg/m2 [facility] 03-12-2024 13:05-0400 Body weight 77.11 kg [facility] 03-12-2024 13:05-0400 Diastolic blood pressure 62 mm[Hg] [facility] 03-12-2024 13:05-0400 Heart rate 136 /min [facility] 03-12-2024 13:05-0400 SaO2% (BldA) [Mass fraction] 98 % [facility] 03-12-2024 13:05-0400 Systolic blood pressure 116 mm[Hg] [facility] 01-23-2024 10:14-0500 Body height 167.64 cm [facility] 01-23-2024 10:14-0500 Body mass index (BMI) [Ratio] 27.8 kg/m2 [facility] 01-23-2024 10:14-0500 Body weight 78.18 kg [facility] 01-23-2024 10:14-0500 Diastolic blood pressure 67 mm[Hg] [facility] 01-23-2024 10:14-0500 Heart rate 71 /min [facility] 01-23-2024 10:14-0500 Respiratory rate 16 /min [facility] 01-23-2024 10:14-0500 Systolic blood pressure 94 mm[Hg] [facility] 09-20-2023 11:30-0400 Body height 167.64 cm Narayan Ball Other [facility] [employer] Other 09-20-2023 11:30-0400 Body mass index (BMI) [Ratio] 28.15 kg/m2 Narayan Ball Other [facility] [employer] Other 09-20-2023 11:30-0400 Body weight 79.11 kg Narayan Ball Other [facility] [employer] Other 09-20-2023 11:30-0400 Diastolic blood pressure 90 mm[Hg] Narayan Ball Other [employer] [facility] [employer] Other 09-20-2023 11:30-0400 Respiratory rate 16 /min Narayan Ball Other [facility] [employer] Other 09-20-2023 11:30-0400 Systolic blood pressure 132 mm[Hg] Narayan Ball Other [employer] Other 03-04-2023 12:00-0400 Body height 167.64 cm Narayan Ball Other [employer] Other 03-04-2023 12:00-0400 Body mass index (BMI) [Ratio] 28.34 kg/m2 Narayan Ball Other [employer] Other 03-04-2023 12:00-0400 Body weight 79.65 kg Narayan Ball Other [employer] Other 03-04-2023 12:00-0400 Diastolic blood pressure 74 mm[Hg] Narayan Ball Other [employer] Other 03-04-2023 12:00-0400 Respiratory rate 16 /min Narayan Ball Other [employer] Other 03-04-2023 12:00-0400 Systolic blood pressure 106 mm[Hg] Narayan Ball Other [employer] Other 02-08-2023 10:30-0400 Body height 167.64 cm Narayan Ball Other [employer] Other 02-08-2023 10:30-0400 Body mass index (BMI) [Ratio] 27.92 kg/m2 Narayan Ball Other [employer] Other 02-08-2023 10:30-0400 Body weight 78.47 kg Narayan Ball Other [employer] Other 02-08-2023 10:30-0400 Diastolic blood pressure 72 mm[Hg] Narayan Ball Other [employer] Other 02-08-2023 10:30-0400 Respiratory rate 16 /min Narayan Ball Other [facility] [employer] Other 02-08-2023 10:30-0400 Systolic blood pressure 108 mm[Hg] Narayan Ball Other [facility] [employer] Other 01-02-2023 13:15-0500 Diastolic blood pressure 82 mm[Hg] Phan SALAM [facility] 01-02-2023 13:15-0500 Heart rate 84 /min Phan SALAM [facility] 01-02-2023 13:15-0500 Respiratory rate 18 /min Phan SALAM [facility] 01-02-2023 13:15-0500 SaO2% (BldA) [Mass fraction] 94 % Phan SALAM [facility] 01-02-2023 13:15-0500 Systolic blood pressure 119 mm[Hg] Phan SALAM [facility] 01-02-2023 13:05-0500 Diastolic blood pressure 88 mm[Hg] Phan SALAM [facility] 01-02-2023 13:05-0500 Heart rate 95 /min Phan SALAM [facility] 01-02-2023 13:05-0500 Respiratory rate 18 /min Phan SALAM [facility] 01-02-2023 13:05-0500 SaO2% (BldA) [Mass fraction] 94 % Phan SALAM [facility] 01-02-2023 13:05-0500 Systolic blood pressure 126 mm[Hg] Phan SALAM [facility] 01-02-2023 13:00-0500 Diastolic blood pressure 77 mm[Hg] Phan SALAM [facility] 01-02-2023 13:00-0500 Heart rate 87 /min Phan SALAM [facility] 01-02-2023 13:00-0500 Respiratory rate 21 /min Phan SALAM [facility] 01-02-2023 13:00-0500 Systolic blood pressure 114 mm[Hg] Phan SALAM [facility] 01-02-2023 12:50-0500 Body temperature 98.42 [degF] Phan SALAM [facility] 01-02-2023 11:59-0500 Blood Pressure Location Phan SALAM [facility] 01-02-2023 11:59-0500 Body temperature 99.32 [degF] Phan SALAM [facility] 11-01-2022 12:12-0500 Blood Pressure Location Suemaria del carmen MathisKiera [facility] 11-01-2022 12:12-0500 Body temperature 97.88 [degF] Sue Mathismetz [facility] 11-01-2022 12:12-0500 Diastolic blood pressure 59 mm[Hg] Suemaria del carmen MathisKiera [facility] 11-01-2022 12:12-0500 Heart rate 89 /min Suemaria del carmen MathisKiera [facility] 11-01-2022 12:12-0500 Systolic blood pressure 93 mm[Hg] Suemaria del carmen MathisKiera [facility] 06-25-2022 11:24-0400 Body mass index (BMI) [Ratio] 29.54 kg/m2 Narayan Gagnon DO Work Phone: [facility] [facility] [employer] 06-25-2022 11:24-0400 Body temperature 98.4 [degF] Narayan Ball DO Work Phone: [facility] 06-25-2022 11:24-0400 Body weight 83.01 kg Narayan Ball DO Work Phone: [facility] [employer] 06-25-2022 11:24-0400 Diastolic blood pressure 89 mm[Hg] Narayan Ball DO Work Phone: [facility] [employer] 06-25-2022 11:24-0400 Heart rate 105 /min Narayan Ball DO Work Phone: [facility] [employer] 06-25-2022 11:24-0400 Respiratory rate 18 /min Narayan Ball DO Work Phone: [facility] [employer] 06-25-2022 11:24-0400 SaO2% (BldA) [Mass fraction] 97 % Narayan Ball DO Work Phone: [facility] [employer] 06-25-2022 11:24-0400 Systolic blood pressure 148 mm[Hg] Narayan Ball DO Work Phone: [facility] [employer] 05-16-2022 19:21-0400 Diastolic blood pressure 88 mm[Hg] Narayan Ball DO Work Phone: [facility] [employer] 05-16-2022 19:21-0400 Heart rate 95 /min Narayan Ball DO Work Phone: [facility] 05-16-2022 19:21-0400 Respiratory rate 18 /min Narayan Ball DO Work Phone: [facility] [employer] 05-16-2022 19:21-0400 SaO2% (BldA) [Mass fraction] 97 % Narayan Ball DO Work Phone: [facility] [employer] 05-16-2022 19:21-0400 Systolic blood pressure 149 mm[Hg] Narayan Ball DO Work Phone: [facility] [employer] 05-16-2022 15:46-0400 Body mass index (BMI) [Ratio] 29.54 kg/m2 Narayan Ball DO Work Phone: [facility] [email or web address] 05-16-2022 15:46-0400 Body temperature 99.3 [degF] Narayan Ball DO Work Phone: [facility] 05-16-2022 15:46-0400 Body weight 83.01 kg Narayan Ball DO Work Phone: [facility] [employer] 11-23-2021 09:02-0500 Body height 167.6 cm Kashmir Consolo DPM Work Phone: [facility] 11-23-2021 09:02-0500 Body mass index (BMI) [Ratio] 29.12 kg/m2 Kashmir Consolo DPM Work Phone: [facility] 11-23-2021 09:02-0500 Body temperature 97.9 [degF] Kashmir Consolo DPM Work [facility] 11-23-2021 09:02-0500 Body weight 81.83 kg Kashmir Consolo DPM Work [facility] 11-23-2021 09:02-0500 Diastolic blood pressure 84 mm[Hg] Kashmir Consolo DPM Work [facility] 11-23-2021 09:02-0500 Heart rate 102 /min Kashmir Consolo DPM Work [facility] 11-23-2021 09:02-0500 Respiratory rate 20 /min Kashmir Consolo DPM Work Phone: [facility] 11-23-2021 09:02-0500 SaO2% (BldA) [Mass fraction] 96 % Kashmir Consolo DPM Work Phone: [facility] 11-23-2021 09:02-0500 Systolic blood pressure 150 mm[Hg] Kashmir Consolo DPM Work Phone: [facility] 11-24-2020 10:30-0500 BP Diastolic 91 mm[Hg] Kashmir Consolo [facility] [place] , [place] 11-24-2020 10:30-0500 BP Systolic 145 mm[Hg] Kashmir [facility] [place] [facility] [place] 11-24-2020 10:30-0500 Pulse (Heart Rate) 78 /min Kashmir [facility] [place] 11-24-2020 10:30-0500 Pulse Oximetry 91 % Kashmir [facility] [place] 11-24-2020 10:30-0500 Respiratory Rate 18 /min [place] [facility] 11-24-2020 09:42-0500 Body Temperature 98.1 [degF] [place] [facility] [place] 11-24-2020 08:21-0500 BMI (Body Mass Index) 30.62 kg/m2 Kashmir [facility] [place] 11-24-2020 08:21-0500 Body weight 83.46 kg Kashmir [facility] [place] , [place] 11-24-2020 08:21-0500 Height 165.1 cm Kashmir [facility] [place] 11-16-2020 08:02-0500 BMI (Body Mass Index) 30.67 kg/m2 Kashmir [facility] [place] 11-16-2020 08:02-0500 Body Temperature 97.39 [degF] [place] [facility] 11-16-2020 08:02-0500 Body weight 83.6 kg Kashmir [facility] [place] 11-16-2020 08:02-0500 BP Diastolic 92 mm[Hg] [place] [facility] [place] 11-16-2020 08:02-0500 BP Systolic 133 mm[Hg] Kashmir [facility] [place] 11-16-2020 08:02-0500 Height 165.1 cm Kashmir [facility] [place] 11-16-2020 08:02-0500 Pulse (Heart Rate) 98 /min Kashmir [facility] [place] 11-16-2020 08:02-0500 Pulse Oximetry 95 % Kashmir [facility] [place] 11-16-2020 08:02-0500 Respiratory Rate 22 /min [facility] [place] [place] Encounters Encounter Date Encounter Type Care Provider Facility Start: 11-05-2024 End: 11-05-2024 ambulatory [facility] Start: 11-05-2024 End: 11-05-2024 Subsequent hospital visit by physician Riya Sanchez OTR/L [facility] Occupational Therapy Comment on above: Arrived Start: 09-25-2024 End: 09-25-2024 ambulatory DO Narayan Gagnon Work Phone: [facility] Work Phone: Start: 09-25-2024 End: 09-25-2024 Patient encounter procedure DO Narayan Gagnon Work Phone: [facility] Work Phone: Start: 09-17-2024 End: 09-17-2024 ambulatory DO Narayan Gagnon Work Phone: [facility] Work Phone: Start: 09-17-2024 End: 09-17-2024 Patient encounter procedure DO Narayan Gagnon Work Phone: [facility] Work Phone: Start: 09-02-2024 Non-patient / Non-visit DO Chapin Gagnon Work Phone[facility] Work Phone: Start: 09-01-2024 Patient encounter procedure DO Narayan Gagnon Work Phone: [facility] Start: 07-20-2024 End: 07-20-2024 Office outpatient visit 25 minutes Coco Hurtado DO Work Phone: [facility] Comment on above: Tremor Start: 07-20-2024 End: 07-20-2024 ambulatory COCO HURTADO Not Available Start: 07-20-2024 End: 07-20-2024 Bamboo flowsheet Coco Hurtado DO Work Phone: [facility] Start: 07-20-2024 End: 07-20-2024 Bamboo flowsheet Coco Hurtado DO Work Phone: [facility] Start: 07-02-2024 End: 07-02-2024 Patient encounter procedure DO Narayan Gagnon Work Phone: [facility] [place] Work Phone: Start: 07-02-2024 End: 07-02-2024 ambulatory DO Narayan Gagnon Work Phone: [facility] Work Phone: Start: 06-24-2024 End: 06-24-2024 ambulatory DO Narayan Gagnon Work Phone: [facility] Work Phone: Start: 06-24-2024 End: 06-24-2024 Patient encounter procedure DO Narayan Gagnon Work Phone: [facility] Work Phone: Start: 06-11-2024 Non-patient / Non-visit DO Chapin Gagnon Work Phone: [facility] Work Phone: Start: 06-11-2024 End: 06-11-2024 ambulatory JU HOFFMANN Not Available Start: 05-15-2024 End: 05-15-2024 Patient encounter procedure DO Narayan Gagnon Work Phone: [facility] [place] Work Phone: Start: 05-15-2024 End: 05-15-2024 ambulatory DO Narayan Gagnon Work Phone: [facility] Work Phone: Start: 05-07-2024 End: 05-07-2024 ambulatory [facility]ASHMIR [facility] Start: 05-07-2024 End: 05-07-2024 Subsequent hospital visit by physician Kashmir Kelly DPM Work Phone: [facility] Start: 05-01-2024 End: 05-05-2024 ambulatory NARAYAN BALL [facility] Start: 05-01-2024 End: 05-05-2024 Subsequent hospital visit by physician Mth Pre Admit Test Rm [facility] Start: 04-16-2024 End: 04-16-2024 ambulatory JU HOFFMANN Not Available Start: 04-13-2024 Non-patient / Non-visit DO Chapin Gagnon Work Phone: [facility] Work Phone: Start: 03-12-2024 End: 03-12-2024 ambulatory [facility] Work Phone: Start: 03-12-2024 End: 03-12-2024 Patient encounter procedure [facility] Work Phone: Start: 01-23-2024 End: 01-23-2024 ambulatory Narayan Gagnon Other [employer] Other Start: 01-23-2024 Telephone encounter Narayan MOJICA [facility] Start: 01-23-2024 End: 01-23-2024 Patient encounter procedure [facility] Work Phone: Start: 01-21-2024 Non-patient / Non-visit [facility] [employer] Work Phone: Start: 01-03-2024 End: 01-03-2024 ambulatory Narayan Gagnon Other [employer] Other Start: 01-03-2024 Telephone encounter Narayan MOJICA [facility] Start: 12-23-2023 End: 12-23-2023 ambulatory Narayan Gagnon Other [employer] Other Start: 12-23-2023 Telephone encounter Narayan MOJICA [facility] Start: 12-18-2023 End: 12-18-2023 ambulatory Narayan Gagnon Other [employer] Other Start: 12-18-2023 Telephone encounter Narayan MJOICA [facility] Start: 12-09-2023 End: 12-09-2023 ambulatory Narayan Gagnon Other [employer] Other Start: 12-09-2023 Telephone encounter Narayan Gagnon FP [facility] Start: 12-03-2023 End: 12-03-2023 ambulatory MALINA BALLARD Not Available Start: 11-13-2023 End: 11-13-2023 ambulatory Narayan Gagnon Other [employer] Other Start: 11-13-2023 Telephone encounter Narayan Ball FP [facility] Start: 09-25-2023 End: 09-25-2023 ambulatory Narayan Gagnon Other [employer] Other Start: 09-25-2023 Telephone encounter Narayan Ball FP [facility] Start: 09-20-2023 End: 09-20-2023 ambulatory Narayan Gagnon Other [employer] Other Start: 09-20-2023 Patient encounter procedure Narayan Jose [facility] Start: 09-05-2023 End: 09-05-2023 ambulatory Narayan Gagnon Other [employer] Other Start: 09-05-2023 Telephone encounter Narayan Ball FP [facility] Start: 09-04-2023 End: 09-04-2023 ambulatory Narayan Gagnon Other [employer] Other Start: 09-04-2023 Telephone encounter Narayan Ball FP [facility] Start: 09-03-2023 End: 09-03-2023 ambulatory Narayan Ball Other [employer] Other Start: 09-03-2023 Telephone encounter Narayan Ball [facility] Start: 08-26-2023 End: 08-26-2023 ambulatory Narayan Ball Other [employer] Other Start: 08-26-2023 Telephone encounter Narayan Ball FP [facility] Start: 08-20-2023 End: 08-20-2023 ambulatory Narayan Gagnon Other [employer] Other Start: 08-20-2023 Telephone encounter Narayan Gagnon FP [facility] Start: 07-16-2023 End: 07-16-2023 ambulatory Narayan Gagnon Other [employer] Other Start: 07-16-2023 Telephone encounter Narayan Ball FP [facility] Start: 07-09-2023 End: 07-09-2023 ambulatory Narayan Gagnon Other [employer] Other Start: 07-09-2023 Telephone encounter Narayan Gagnon FP [facility] Start: 07-08-2023 End: 07-08-2023 ambulatory Narayan Gagnon Other [employer] Other Start: 07-08-2023 Telephone encounter Narayan Gagnon FP [facility] Start: 05-01-2023 End: 05-01-2023 ambulatory Narayan Gagnon Other [employer] Other Start: 05-01-2023 Telephone encounter Narayan Gagnon FP [facility] Start: 03-19-2023 End: 03-19-2023 ambulatory Narayan Gagnon Other [employer] Other Start: 03-19-2023 Telephone encounter Narayan Ball [facility] Start: 03-18-2023 End: 03-18-2023 ambulatory Narayan Gagnon Other [employer] Other Start: 03-18-2023 Telephone encounter Narayan Jose FP [facility] Start: 03-14-2023 End: 03-15-[address] NARAYAN GAGNON Facility: Start: 03-07-2023 End: 03-07-2023 ambulatory Narayan Jose Other [employer] Other Start: 03-07-2023 Telephone encounter Narayan Ball FP [facility] Start: 03-04-2023 End: 03-04-2023 ambulatory Narayan Gagnon Other [employer] Other Start: 03-04-2023 Office outpatient vi sit 25 minutes Narayan Ball [facility] Start: 02-19-2023 End: 02-19-2023 ambulatory Narayan Gagnon Other [employer] Other Start: 02-19-2023 Telephone encounter Narayan Gagnon FP [facility] Start: 02-15-2023 End: 02-15-2023 ambulatory Narayan Gagnon Other [employer] Other Start: 02-15-2023 Telephone encounter Narayan Gagnon [facility] Start: 02-13-2023 ambulatory HUANG BARRY Facility: Start: 02-11-2023 End: 02-11-2023 ambulatory Narayan Gagnon Other [employer] Other Start: 02-11-2023 Telephone encounter Narayan Gagnon [facility] Start: 02-08-2023 Office outpatient vi sit 25 minutes Narayan Ball [facility] Start: 02-08-2023 Telephone encounter Narayan Gagnon FP [facility] Start: 02-08-2023 End: 02-09-[address] STACY LAWSON [facility] [employer] Other Start: 01-02-2023 End: 01-03-2023 ambulatory Sylvester FITZPATRICK Facility:[facility] Start: 01-02-2023 End: 01-02-2023 Patient encounter procedure Sylvester FITZPATRICK [facility] Start: 12-24-2022 End: 12-25-2022 ambulatory Sue Qureshi Facility:[facility] Start: 12-20-2022 End: 03-01-[address] MALINA BALLARD Facility: Start: 11-01-2022 End: 11-02-2022 ambulatory Sue Qureshi Facility:[facility] Start: 11-01-2022 End: 11-02-2022 [facility]ulatory [facility] Start: 11-01-2022 End: 11-01-2022 Patient encounter procedure Sue Mathismetz [facility] Start: 11-01-2022 End: 11-02-[address] NARAYAN GAGNON Facility:[facility] Start: 09-28-2022 ambulatory Sue Mathismetz Facility :[facility] Start: 09-23-2022 Pre-procedure evalua tion check Narayan Gagnon Other [employer] Other Start: 09-20-2022 End: 09-21-2022 ambulatory Lesly Baeza Facility:[facility] Start: 09-20-2022 End: 09-20-2022 Patient encounter procedure Lesly Maria Del Carmen Aryan [facility] Start: 06-25-2022 End: 06-25-2022 Emergency department patient visit Narayan Gagnon DO Work Phone: [facility] ED Comment on above: Acute upper respirat ory infection (Primary Dx) Start: 06-15-2022 End: 06-16-[address] NARAYAN GAGNON Facility:[facility] Start: 05-17-2022 End: 05-18-2022 Evaluation and management of inpatient VAHID MOODY [facility] Start: 05-16-2022 End: 05-17-2022 Emergency department patient visit Narayan Gagnon DO Work Phone: [facility] ED Comment on above: Suicidal ideation (P rimary Dx); Homicidal ideations Start: 01-26-2022 End: 01-27-2022 ambulatory Malina Ballard Facility:[facility] Start: 01-22-2022 End: 01-22-2022 ambulatory Malina Ballard Facility:[facility] Start: 11-23-2021 End: 11-27-2021 Subsequent hospital visit by physician Kashmir Kelly DPM Work Phone: [facility] Laboratory Start: 11-24-2020 End: 11-24-2020 Subsequent hospital visit by physician Kashmir Kelly Work Phone: [facility] OR Start: 11-17-2020 End: 11-21-2020 Subsequent hospital visit by physician Vane Covid19 Pat Screening Schedule [facility]MIT Comment on above: Preoperative testing Start: 11-17-2020 End: 11-19-2020 Subsequent hospital visit by physician Vane [facility] MRI Comment on above: Nonintractable heada cristal, unspecified chronicity pattern, unspecified headache type; 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; Alternating exotropia; Diplopia; Dysfunction of both inferior oblique muscles Start: 11-16-2020 End: 11-20-2020 Subsequent hospital visit by physician Kashmir Kelly Work Phone: [facility] PRE ADMIT Start: 03-04-2018 End: 03-05-2018 Ambulatory DEFAULT PHYSICIAN Facility:[facility] Start: 02-28-2018 End: 03-01-2018 Ambulatory DEFAULT PHYSICIAN Facility:[facility] Procedures Date Procedure Procedure Detail Performing [...] Kelly DPM Work Phone: Start: 01-02-2023 Colonoscopy Coco Hurtado DO Work Phone: Start: 01-02-2023 Colonoscopy Sylvester FITZPATRICK Start: 01-02-2023 Esophagogastroduodenoscopy Sylvester SALAM Start: 06-25-2022 Radiologic exam chest single view Atul Veliz Jeff RIBEIRO Work Phone: Start: 06-25-2022 COVID-19, RAPID Ebony Borjabal DO Work Phone: Start: 05-16-2022 Radiologic exam chest single view Sona Shantelle SUPERINTENDENT FA[employer]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 - PRINTER SLOTTER OPERATOR Work Phone: Start: 05-16-2022 Assay of acetaminophen Abi Huggins Shantelle SUPERINTENDENT FACTORY - PRINTER SLOTTER OPERATOR Work Phone: Start: 05-16-2022 Assay of ethanol Abi Huggins Shantelle SUPERINTENDENT FACTORY - PRINTER SLOTTER OPERATOR Work Phone: Start: 05-16-2022 Assay of salicylate Abi Huggins Shantelle SUPERINTENDENT FACTORY - PRINTER SLOTTER OPERATOR Work Phone: Start: 05-16-2022 Comprehensive metabolic panel Abi Huggins Shantelle SUPERINTENDENT FACTORY - PRINTER SLOTTER OPERATOR Work Phone: Start: 05-16-2022 Drug tst prsmv instrmnt chem analyzers pr date Abi Pepper SUPERINTENDENT [employer]ORY - PRINTER SLOTTER OPERATOR Work Phone: Start: 05-16-2022 COVID-19, RAPID Abi Pepper SUPERINTENDENT FA[employer]ORY - PRINTER SLOTTER OPERATOR Work Phone: Start: 05-16-2022 Ecg routine ecg w/least 12 lds i&r only bAi Pepper SUPERINTENDENT [employer]ORY - PRINTER SLOTTER OPERATOR Work Phone: Start: 01-22-2022 Total knee replacement Lesly Baeza Start: 11-23-2021 Ecg routine ecg w/least 12 lds i&r only Kashmir Kelly DPM Work Phone: Start: 11-23-2021 Basic metabolic panel calcium total Benj gilman Ball DO Work Phone: Start: 11-23-2021 Urnls dip stick/tablet reagent auto microscopy Narayan Ball DO Work Phone: Start: 11-24-2020 GLUCOSE, WHOLE BLOOD Kashmir Kelly Work Phone: Start: 11-17-2020 COVID-19 Eric Jay Work Phone: Start: 11-17-2020 Mri brain brain stem w/o w/contrast material Bipin Quintana Work Phone: Start: 11-16-2020 Ecg routine ecg w/least 12 lds i&r only Kashmir Klely Work Phone: Start: 11-16-2020 EKG REPORT Hpf Scanning Start: 11-16-2020 Basic metabolic panel calcium total Kashmir Lombardi Consolo Work Phone: Start: 11-16-2020 Blood count complete automated Kashmir Lombardi Co nsolo Work Phone: Start: 07-28-2020 Hydrocelectomy [...] Treatment Date Care Activity Detail Author Start: 01-02-2033 Screening for malign ant neoplasm of colon [facility] Start: 09-03-2026 DTaP/Tdap/Td vaccine (4 - Td or Tdap) DTaP/Tdap/Td vaccine (4 - Td or Tdap) [facility] Start: 05-01-2025 GFR test (Diabetes, CKD 3-4, OR last GFR 15-59) GFR test (Diabetes, CKD 3-4, OR last GFR 15-59) [facility] Start: 07-26-2024 COVID-19 Vaccine ( season) COVID-19 Vaccine ( season) [facility] Start: 07-26-2024 Influenza vaccination Influenza Vacc ine (#1) [facility] Start: 07-20-2024 End: 07-20-2024 Patient encounter procedure 07/20/2024 3:15 PM EDT Office Visit [facility] [address] [place] [id number] Coco Hurtado DO [address] [place] [address] Arrived [facility] Comment on above: Arrived Start: 05-07-2024 End: 05-07-2024 Admission to same day surgery center 05/07/2024 8:30 AM EDT - 05/07/2024 9:15 AM EDT Surgery [facility] [address] [place], [place] [id number] Kashmir Kelly, DPM [address] [phone] NAILBED EXCISION MATRIXECTOMY- DIGITS 1,4,5 [facility] Comment on above: NAILBED EXCISION MAT RIXECTOMY- DIGITS 1,4,5 Start: 05-07-2024 End: 05-07-2024 Anesthesia consultation 05/07/2024 8:30 AM EDT Anesthesia Event [facility] [address] [place], [place] [id number] Janna Love, SUPERINTENDENT FACTORY - MASTER PLANNER [address] [facility] [address] [place] [address] [facility] Start: 05-07-2024 End: 05-07-2024 Excision nail matrix permanent removal [facility] Start: 05-07-2024 Subsequent hospital visit by physician 05/07/2024 8:30 AM EDT Hospital Encounter [facility] [address] [place], [place] [id number] Kashmir Kelly, DPM [address] [phone] [facility] Start: 2024 DTaP/Tdap/Td vaccine (2 - Td or Tdap) DTaP/Tdap/Td vaccine (2 - Td or Tdap) [facility] Start: 2024 DTaP/Tdap/Td vaccine (2 - Td) DTaP/Tdap/Td vaccine (2 - Td) [place] Start: 10-21-2023 Annual Wellness Visi t (Medicare) Annual Wellness Visit (Medicare) [facility] Start: 07-26-2023 COVID-19 Vaccine ( season) COVID-19 Vaccine ( season) [facility] Start: 2023 Shingles vaccine (1 of 2) Shingles vaccine (1 of 2) [facility] Start: 11-23-2022 Creatinine measurement Creatinine mo nitoring [facility] Start: 11-23-2022 Hemoglobin A1c measurement A1C test (Diabetic or Prediabetic) [facility] Start: 11-23-2022 Potassium monitoring Potassium monit oring [facility] Start: 07-26-2022 Influenza vaccination [facility] Start: 02-21-2022 Hemoglobin A1c measurement A1C test (Diabetic or Prediabetic) [facility] Start: 11-30-2021 End: 11-30-2021 Admission to same day surgery center 11/30/2021 Surgery IP Unit Kashmir Kelly DPM [address] [place] [address] NAILBED EXCISION MATRIXECTOMY-HALLUX [facility] Comment on above: NAILBED EXCISION MAT RIXECTOMY-HALLUX Start: 11-30-2021 End: 11-30-2021 Excision nail matrix permanent removal NAILBED EXCISION MATRIXECTOMY CHRONIC INGROWNS 11/30/2021 8:00 AM [facility] Start: 11-30-2021 Subsequent hospital visit by physician 11/30/2021 Hospital Encounter IP Unit Kashmir Kelly DPM [address] [place] [address] [facility] Start: 11-16-2021 Creatinine measurement Creatinine mo nitoring [place] Start: 11-16-2021 Potassium monitoring Potassium monit oring [place] Start: 10-01-2021 COVID-19 Vaccine (3 - Booster for Pfizer series) COVID-19 Vaccine (3 - Booster for Pfizer series) [facility] Start: 08-31-2021 COVID-19 Vaccine (3 - Booster for Pfizer series) COVID-19 Vaccine (3 - Booster for Pfizer series) [facility] Start: 07-26-2021 Influenza vaccination Flu vaccine (# 1) [facility] Start: 11-24-2020 End: 11-24-2020 Hospital Encounter [facility] Comment on above: FOOT LESION BIOPSY E XCISION, PLANTAR Start: 11-17-2020 Annual Wellness Visi t (AWV) Annual Wellness Visit (AWV) [place] Start: 07-26-2020 Influenza vaccination Flu vaccine (# 1) [place] Start: 2018 Screening for malign ant neoplasm of colon [facility] Start: 2013 Diabetes screen Diabetes screen [place], [place] Start: 2008 Diabetes [address] Diabetes screen [facility] Start: 08-06-2002 Pneumococcal 0-64 ye ars Vaccine (2 of 2 - PCV) Pneumococcal 0-64 years Vaccine (2 of 2 - PCV) [facility] Start: 1992 Hepatitis B vaccine (1 of 3 - 19+ 3-dose series) Hepatitis B vaccine (1 of 3 - 19+ 3-dose series) [facility] Start: 1992 Hepatitis B vaccine (1 of 3 - Risk 3-dose series) Hepatitis B vaccine (1 of 3 - Risk 3-dose series) [facility] Start: 1991 Diabetic retinal exam Diabetic retin al exam [facility] Start: 1991 Glaucoma screening Diabetic retinal exam [facility] Start: 1991 Hepatitis C screening Hepatitis C sc reen [facility] Start: 1991 Urine screening for protein [facility] Start: 1988 HIV screening HIV screen [facility] Start: 1985 Depression Monitoring Depression Mon itoring [facility] [employer] Start: 1985 Depression Screen [facility] Start: 1983 Diabetic foot examination [facility]abetic foot exam [facility] Start: 1983 Lipid panel [facility] Start: 1979 Pneumococcal 0-64 ye ars Vaccine (1 - PCV) Pneumococcal 0-64 years Vaccine (1 - PCV) [facility] [employer] Start: 1973 Hepatitis B vaccine (1 of 3 - 3-dose series) Hepatitis B vaccine (1 of 3 - 3-dose series) [facility] [employer] Start: 1973 Hepatitis C screening Hepatitis C sc reen [email or web address] Start: 1973 Screening for malign ant neoplasm of colon [facility] End: 11-23-2021 Culture, Urine [employer] Phone: Comment on above: Once for 1 Occurrenc es starting 11/23/2021 until 11/23/2021 End: 05-07-2024 Glucose [Mass/volume] in Serum or Plasma POCT Glucose Point of Care Testing Routine One Time for 1 Occurrences starting 05/07/2024 until 05/07/2024 [facility] [employer] Phone: Comment on above: One Time for 1 Occur rences starting 05/07/2024 until 05/07/2024 End: 11-24-2020 POCT Glucose POCT Glucose Point of Care Testing STAT One Time for 1 Occurrences starting 11/24/2020 until 11/24/2020 [facility] [place] Comment on above: One Time for 1 Occur rences starting 11/24/2020 until 11/24/2020 Surgical Pathology Surgical Path ology Lab Routine Release Upon Ordering for 1 Occurrences starting 11/24/2020 [email or web address] [place] Comment on above: Release Upon Orderin g for 1 Occurrences starting 11/24/2020 [facility] Immunizations Immunization Date Immunization Notes Care Provider Adrianna thomas 09-25-2024 influenza, seasonal, injectable, preservative free DO Narayan Gagnon Work Phone: [facility] 09-20-2023 influenza, injectabl e, quadrivalent, preservative free Narayan Gagnon Other [facility] 09-20-2023 influenza virus vaccine, unspecified formulation Coco Hurtado DO Work Phone: [facility] 09-20-2022 influenza virus vaccine, split virus (incl. purified surface antigen) Narayan Gagnon Other [place] [employer] Other 09-20-2022 influenza virus vaccine, unspecified formulation Sue Qureshi [facility] 03-31-2021 SARS-CoV-2 (COVID-19 ) mRNA BNT-162b2 vax Suemaria del carmen MathisKiera [facility] 12-17-2020 SARS-CoV-2 (COVID-19 ) mRNA BNT-162b2 vax Suemaria del carmen MathisKiera [facility] Comment on above: Result Comment: 2021: [id number] 08-26-2020 influenza virus vaccine, split virus (incl. purified surface antigen) Narayan Gagnon Other [facility] [employer] Other 08-26-2020 influenza virus vaccine, unspecified formulation [facility] 09-07-2019 influenza virus vaccine, unspecified formulation Sue Mathismetz [facility] 09-01-2019 influenza virus vaccine, split virus (incl. purified surface antigen) Narayan Gagnon Other [place] [employer] Other 09-01-2019 influenza virus vaccine, unspecified formulation [facility] 08-15-2018 influenza virus vaccine, split virus (incl. purified surface antigen) Narayan Gagnon Other [employer] Other 08-15-2018 influenza virus vaccine, unspecified formulation [facility] 08-13-2018 influenza virus vaccine, split virus (incl. purified surface antigen) Narayan Gagnon Other [employer] Other 08-13-2018 influenza virus vaccine, unspecified formulation Sue Qureshi [facility] 09-03-2016 influenza virus vaccine, unspecified formulation Sue Qureshi [facility] 09-03-2016 tetanus and diphther ia toxoids, adsorbed, preservative free, for adult use (5 Lf of tetanus toxoid and 2 Lf of diphtheria toxoid) Narayan Gagnon Other [facility] 09-14-2014 tetanus and diphther ia toxoids, adsorbed, preservative free, for adult use (5 Lf of tetanus toxoid and 2 Lf of diphtheria toxoid) Narayan Gagnon Other [facility] 2014 tetanus toxoid, reduced diphtheria toxoid, and acellular pertussis vaccine, adsorbed Suemaria del carmen Qureshi [facility] 09-17-2013 tetanus and diphther ia toxoids, adsorbed, preservative free, for adult use (5 Lf of tetanus toxoid and 2 Lf of diphtheria toxoid) Narayan Gagnon Other [facility] 08-06-2001 pneumococcal polysaccharide vaccine, 23 valent Narayan Gagnon Other [facility] Payers Date Payer Category Payer Self-pay [id number] 2019 Medicaid MEDICAID [facility] [id number] 2019-Present [phone] [address] [place] [address] Medicaid [id number] 2000 Medicare MEDICARE MEDICAR E PART B [id number] 2000-[place] [address] Medicare [id number] 1973 Unknown [id number] [id number]6 1973 Unknown [id number] 2.16.840.1.305511.3.579.2.727 1973 Unknown [id number] 2.16.840.1.783813.3.579.2.727 1973 Unknown [id number] 2.16.840.1.442953.3.579.2.727 1973 Unknown [id number] 2.16.840.1.698423.3.579.2.727 1973 Unknown [id number] 2.16840.1.301557.3.579.2727 1973 Unknown [id number] 2.16840.1.212598.3.579.2.727 1973 Unknown [id number] .16840.1.720238.3.579.2.727 1973 Unknown [id number] 2.16840.1.722046.3.579.2.727 1973 Unknown [id number] 2.16840.1.450184.3.579.2.593 1973 Unknown [id number] 2.16.840.1.696350.3.579.2.593 1973 Unknown [id number] 2.16.840.1.522210.3.579.2.593 1973 Unknown [id number] 2.16.840.1.425487.3.579.2.593 1973 Unknown [id number] 2.16.840.1.914847.3.579.2.593 1973 Unknown [id number] 2.16.840.1.295819.3.579.2.593 1973 Unknown [id number] 2.16.840.1.382118.3.579.2.593 1973 Unknown [id number] 2.16.840.1.755399.3.579.2.593 1973 Unknown [id number] 2.16.840.1.714696.3.579.2.1259 1973 Unknown [id number] 2.16.840.1.628625.3.579.2.1259 1973 Unknown [id number] 2.16.840.1.590043.3.579.2.1259 1973 Unknown [id number] 2.16.840.1.174254.3.579.2.1259 1973 Unknown [id number] 2.16.840.1.438546.3.579.2.1259 1973 Unknown [id number] 2.16.840.1.344813.3.579.2.173 1973 Unknown [id number] 2.16.840.1.817862.3.579.2.173 1973 Unknown [id number] 2.16.840.1.441509.3.579.2.173 1959 Medicaid [id number] 1.2.840.965853.1.13.239.2.7.3.6 [id number] 1961 Medicare [id number] [id number] [id number] Medicare Medicare Psych-IP Part A [id number] Unknown Unknown [id number] 2.16.840.1.814792.3.579.2.531 Unknown [id number] 2.16.840.1.241620.3.579.2.531 Social History Date Type Detail Facility Start: 07-30-2014 End: 11-16-2020 Tobacco smoking status AKIS Former smoker [place] Start: 11-16-2020 End: 05-07-2023 Tobacco use and exposure Never used [place] Start: 11-16-2020 End: 05-12-2024 Alcohol intake Current non-drinker of alcohol (finding) [place] Start: 1975 Sex Assigned At Not on file M [place], [place] Start: 05-06-2022 End: 05-16-2022 Exposure to SARS-CoV-2 (event) Not sure [place] Start: 05-17-2022 End: 05-18-2022 History SDOH Alcohol Frequency 1 [employer] Phone: History of tobacco use Current smoker [employer] Phone: Start: 05-18-2022 History SDOH Alcohol Std Drinks 98 [employer] Phone: Start: 06-15-2022 End: 06-25-2022 Exposure to SARS-CoV-2 (event) Yes [employer] Phone: Start: 10-28-2020 End: 05-07-2023 Tobacco smoking status Never smoked tobacco (finding) [facility] Start: 05-18-2022 End: 07-20-2024 Sex Assigned At Male [facility] Tobacco smoking status Never [facility] Start: 1975 Sex Assigned At Male F [facility] Start: 05-18-2022 End: 07-20-2024 History of Social function [employer] How often to you hav e a drink containing alcohol? Never [employer] Start: 06-11-2024 End: 07-20-2024 Alcoholic beverage intake Lifetime non-drinker (finding) [facility] Start: 05-10-2023 Alcohol Comment caffeine: >4 c ups per day [facility] Medical Equipment Procedure Code Equipment Code Equipment Origin al Text Equipment Identifier Dates KNEE TOTAL ARTHROPLASTY Malina Ballard DO 01/22/22 Non Biological Knee R {[id number] FDA Start: 01-22-2022 Start: 07-16-2023 Blood Sugar Diag nostic (True Metrix [...] 04-13-2024 Lancets (Thin La ncets) 26 gauge mis Start: 04-13-2024 Blood Sugar Diag nostic (True Metrix Glucose Test Strip) strip Start: 01-21-2024 End: 01-21-2024 Lancets Start: 01-21-2024 End: 01-21-2024 Lancets Start: 01-21-2024 End: 01-21-2024 Lancets Start: 01-21-2024 End: 01-23-2024 Lancets Start: 04-08-2024 End: 04-13-2024 Lancets (Trueplu s Lancets) 33 gauge [facility] Start: 01-23-2024 End: 04-08-2024 Blood Sugar Diag nostic (True Metrix Glucose Test Strip) strip Start: 01-21-2024 Lancets Start: 04-13-2024 Lancets (Thin La ncets) 26 gauge [facility] Start: 04-13-2024 Blood Sugar Diag nostic (True Metrix Glucose Test Strip) strip Start: 01-21-2024 End: 01-21-2024 Lancets Start: 01-21-2024 End: 01-21-2024 Lancets Start: 01-21-2024 End: 01-21-2024 Lancets Start: 01-21-2024 End: 01-23-2024 Lancets Start: 04-08-2024 End: 04-13-2024 Lancets (Trueplu s Lancets) 33 gauge [facility] Start: 01-23-2024 End: 04-08-2024 Blood Sugar Diag nostic (True Metrix Glucose Test Strip) strip Start: 01-21-2024 Lancets Start: 04-13-2024 Lancets (Thin La ncets) 26 gauge [facility] Start: 09-21-2024 Blood Sugar Diag nostic (True Metrix Glucose Test Strip) strip Start: 01-21-2024 End: 01-21-2024 Lancets Start: 01-21-2024 End: 01-21-2024 Lancets Start: 01-21-2024 End: 01-21-2024 Lancets Start: 01-21-2024 End: 01-23-2024 Lancets Start: 04-08-2024 End: 04-13-2024 Lancets (Thin La ncets) 26 gauge [facility] Start: 04-13-2024 End: 09-21-2024 Lancets (Trueplu s Lancets) 33 gauge [facility] Start: 01-23-2024 End: 04-08-2024 Functional Status Date Assessment Result Facility 01-02-2023 Functional Status N/A [facility] 11-01-2022 Functional Status N/A [facility] Clinical Notes 11-23-2021 to 07-20-2024 Coco Hurtado, - 07/20/2024 3:15 PM IRVINGTJu Paulino RN - 05/07/2024 10:03 AM EDTDischarCordelia Rodriguez RN - 05/01/2024 10:00 AM EDT Note Date & Type Note Facility 07-20-2024 History of Present illness Narrative Images from the original note were not included. Chief Complaint Patient presents with Tremors Subjective Hari Thornton is a 49 y.o. male. HPI The patient presents today for follow up. He completed CTA and labs for review. Tremor has been generally unchanged since the prior neurology appointment. The patient is taking primidone 50 mg twice a day. The patient has an intermittent action tremor of the bilateral hands. Tremor does not occur with rest. He has balance difficulty at times. He denies any falls since the prior appointment. They have a lift for him in the bathtub, this is where he was falling most of the time. The patient has difficulty with word-finding at times. This has not worsened since the previous appointment. He also has some trouble processing. He denies visual hallucinations. He follows with psychiatry and a counselor. He is sleeping well throughout the night. The patient has a history of KOKI but refuses to use the CPAP. Mother states he sleeps a lot. He sleeps about 20 hours a day. Mother states he is only up to eat. He has no motivation to do anything. Tremor Review of Systems Constitutional: Positive for fatigue. Negative for appetite change, chills, fever and unexpected weight change. HENT: Positive for hearing loss. Negative for drooling, trouble swallowing and voice change. Eyes: Negative for visual change, double vision or loss of vision Respiratory: Negative for cough, shortness of breath and wheezing. Cardiovascular: Negative for chest pain and palpitations. Gastrointestinal: Negative for abdominal pain, blood in stool, nausea and vomiting. Musculoskeletal: Positive for gait problem (imbalance). Negative for arthralgias and myalgias. Neurological: Positive for tremors, speech difficulty (word-finding difficulty) and weakness. Negative for dizziness, seizures, syncope, facial asymmetry, light-headedness, numbness and headaches. Mother reports the patient has some difficulty with comprehension Psychiatric/Behavioral: Negative for agitation, hallucinations and suicidal ideas. Positive for history of anxiety and depression Medication List aspirin 81 MG EC tablet clonazePAM 1 MG tablet; Commonly known as: KlonoPIN divalproex 500 MG EC tablet; Commonly known as: Depakote docusate sodium 100 MG capsule; Commonly known as: Colace DULoxetine [address] capsule; Commonly known as: Cymbalta Fanapt 6 MG tablet; Generic drug: iloperidone FIBER-LAX PO glimepiride 4 MG tablet; Commonly known as: Amaryl Jardiance 25 MG; Generic drug: empagliflozin lisinopril 20 MG tablet MULTI VITAMIN DAILY PO pravastatin 20 MG tablet; Commonly known as: Pravachol primidone 50 MG tablet; Commonly known as: Mysoline; TAKE 1 TABLET BY MOUTH TWICE A DAY IN THE MORNING AND BEFORE BEDTIME [employer] True Met Air Gluc Meter w/Device kit tiZANidine 4 MG capsule; Commonly known as: Zanaflex traMADol 50 MG tablet; Commonly known as: Ultram traZODone 100 MG tablet; Commonly known as: Desyrel True Metrix Blood Glucose Test test strip; Generic drug: glucose blood Trulicity 4.5 MG/0.5ML solution pen-injector; Generic drug: dulaglutide verapamil SR 180 MG ER tablet; Commonly known as: Calan SR Past Medical History: Diagnosis Date Abdominal cramping 07/02/2023 Abdominal pain 07/02/2023 Anxiety Arthritis Artificial knee joint present 07/02/2023 Chronic pansinusitis Class 1 obesity 03/07/2017 Depression ([facility]) Diabetes mellitus, type 2 ([facility]) Diverticulitis Dysfunction of both eustachian tubes Dysphagia 07/02/2023 Dysuria 07/02/2023 Heartburn 07/02/2023 History of cholesteatoma History of colon polyps 07/02/2023 History of medical problems renal reflux Hypertension ([facility]) Mixed hearing loss of right ear Nasal polyps Post-void dribbling 07/02/2023 Proteinuria 07/02/2023 Subjective tinnitus Testicular swelling 07/02/2023 Urinary frequency 07/02/2023 Urinary reflux 07/02/2023 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[facility]) Past Surgical History: Procedure Laterality Date ANTERIOR CRUCIATE LIGAMENT REPAIR BACK SURGERY tumor removal CARPAL TUNNEL RELEASE COLONOSCOPY 12/2022 EXCISION back HERNIA REPAIR x2 KNEE SURGERY arthroscopy lateral release KNEE SURGERY x3 KNEE SURGERY knee arthroscopy x5 KNEE SURGERY knee replacement x2 MASTOID SURGERY MYRINGOTOMY Left x2 01/14/2012, 07/12/2020 NASAL POLYP SURGERY OTHER SURGICAL HISTORY 07/2020 drainage of testicle OTHER SURGICAL HISTORY 2019 RT T-tube AR DRAIN/INJECT LARGE JOINT/BURSA Right knee joint WEEKS WART REMOVAL 06/2020 TONSILLECTOMY TOTAL KNEE ARTHROPLASTY Right TYMPANOPLASTY Family History Problem Relation Name Age of Onset Diabetes Mother No Known Problems Brother Diabetes Maternal Grandmother Heart disease Maternal Grandfather Cancer Maternal Grandfather Melanoma Other Grandfather Allergies Other Grandfather Skin cancer Other Grandfather Diabetes Other Grandfather Hyperlipidemia Other Grandfather Hypertension Other Grandfather Social History Tobacco Use Smoking status: Never Smokeless tobacco: Never Substance Use Topics Alcohol use: Never Comment: caffeine: >4 cups per day Allergies: Morphine, Vancomycin, and Penicillins There were no vitals filed for this visit. Body mass index is 28.25 kg/m . Neurologic exam: Mental status: Awake and alert with unlabored respirations. Oriented to person, place and president. Not oriented to current time (states it is May). Recent and remote memory are partially intact. Speech is clear with mild receptive and expressive aphasia at times. Attention and concentration are normal. Fund of knowledge is appropriate for level of education. Cranial nerves: CN II: Visual acuity is normal. Visual briscoe full to confrontation. CN III, IV, : Pupils are equal, round and reactive to light. Extraocular movements intact. No ptosis present. Exotropia right eye (reportedly chronic). CN V: Facial sensation is normal. CN VII: Full and symmetric facial movement. CN VIII: Hearing is reduced bilaterally. CN IX and X: Palate elevates symmetrically. CN XI: Shoulder shrug is normal bilaterally. CN XII: Tongue is midline without atrophy or fasciculation. Motor: RUE strength deltoid , biceps , triceps , wrist extensors , wrist flexor , and county administrator strength 5/5. LUE strength deltoid , biceps , triceps , wrist extensors , wrist flexor , and county administrator strength 5/5. RLE strength illopsoas, quadriceps, tibialis anterior, and gastrocnemius strength 5/5. LLE strength illopsoas, quadriceps, tibialis anterior, and gastrocnemius strength 5/5. Mildly increased tone in the bilateral upper extremities (right more significant than left). Mild intention tremor (left more prominent than right). No rest tremor observed. Sensory: Sensation is intact to light touch throughout all four extremities. Sensation is intact to temperature in all extremities. Reflexes: RUE biceps reflex 2+ , brachioradialis reflex 2+. LUE biceps reflex 2+ , brachioradialis reflex 2+. RLE knee reflex 1+. LLE knee reflex 1+. Coordination: Ufwzic-dr-gawa testing normal aside from tremor. Rapid alternating movements normal with finger tapping. Mild bradykinesia with pronation/supination of the bilateral hands. Gait: Slightly stooped posture with decreased arm swing bilaterally. Review and summary of old records: CTA head and neck on 07/02/24 at [facility]: no evidence of occlusion, aneurysm or dissection. No evidence of intracranial stenosis. LDL: 76 B12 and thyroid stimulating hormone on 06/11/2024: Normal MRI of the brain w and w/o contrast at [facility] on 05/15/24: No acute intracranial pathology. There is a remote lacunar infarct in the right deep ngo nuclei. No abnormal postcontrast enhancement. Mild chronic age-related neurodegenerative changes. There is mild diffuse cortical atrophy. There are a few periventricular and subcortical white matter T2 and FLAIR hyperintense foci suggesting mild chronic microvascular ischemic change. Labs at [facility] on 10/03/20: generally unremarkable with Depakene level 72.2 (WNL) MRI of the orbits, face, and neck w and w/o contrast at [facility] on 11/17/20: Old right basal ganglia lacune. Mild chronic microvascular disease within the periventricular white matter. Assessment/Plan Diagnoses and all orders for this visit: Lacunar infarction (CMS/HCC) MRI of the brain on 05/15/24 identified a remote lacunar infarct in the right deep ngo nuclei. As it is unclear when this stroke occurred, I recommend the patient continue antiplatelet therapy with aspirin. Reportedly, his most recent hemoglobin A1c was around 8%. LDL is 76. CTA is unremarkable. PLAN: - Continue aspirin 81 mg by mouth once a day - I encouraged healthy diet and regular physical activity - I recommended avoidance of tobacco use and limited alcohol intake - I advised the patient to follow up closely with his primary care provider for monitoring and management of blood pressure, cholesterol levels and blood glucose. LDL goal should be less than 70. Patient is on pravastatin. - Patient to proceed directly to the emergency department in the future should he experience any new signs or symptoms of stroke. He and his mother verbalize understanding Aphasia The patient's mother notes some aphasia and impaired comprehension in the patient recently. He primarily seems to have difficulty understanding language at times but can also have word-finding difficulty. 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 However, the patient's mother reports this is a change from his baseline. MRI of the brain on 05/13/24 reveled mild chronic age-related neurodegenerative changes and a remote lacunar infarct in the right deep ngo nuclei. Certainly, the lacunar infarct could have been contributory to his cognitive symptoms. B12 and thyroid stimulating hormone was normal. PLAN: - I reviewed MRI results with the patient and his mother - The patient is unable to read/write as reported by his mother. I am not sure he would able to complete neuropsychological examination - Consider referral to speech therapy in the future. Deferred today due to patient and mother's request Tremor The patient initially presented with tremor that was intermittent with high amplitude. MRI of the brain on 11/17/20 was unrevealing for cause. This may, in part, be related to the patient's congenital disease or medication side effect. However, I would also consider essential tremor. Tremor previously responded well to primidone, but the patient notes worsening of symptoms recently. Tremor is interfering with his functionality at times. PLAN: - Continue primidone to 50 mg. We did adjust the dosing to make it 2 tablets with supper in the hopes that he does not have to take any of the primidone in the morning and maybe this will help his daytime fatigue. - Use of adaptive utensils during meals - It is possible that divalproex sodium and iloperidone are contributing to the patient's tremor, and I advised the patient and his mother to speak with the patient's psychiatrist about this. His psychiatrist may wish to consider dose reduction or discontinuation of these medications to monitor patient response. Though, mother states the patient had, bad mood swings, when psychiatry attempted to reduce his medications in the past. The patient does also have some subtle features of Parkinsonism (bradykinesia and rigidity) on clinical exam today though no rest tremor. I question if he has mild drug-induced Parkinsonism related to iloperidone and/or divalproex sodium. Could consider Sinemet trial in the future 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CMS/HCC) Congenital disorder which can be associated with psychiatric disturbance, intellectual disability and other clinical manifestations. Psychiatric disorder The patient states his mood has been okay lately. PLAN: - Follow up with psychiatry (he sees Dr. Lawson) and counselor for management of psychiatric disorder KOKI (obstructive sleep apnea) History of KOKI reported by the patient's mother. The patient admits he does not use his CPAP as directed. PLAN: - I strongly encouraged the use of CPAP while asleep Generalized weakness The patient reports a history of weakness primarily affecting his bilateral upper extremities. He utilizes a cane/walker at home and has handicap bars in his shower. He reported vast improvement in his strength following a prior course of physical therapy (PT). He has not performed any PT exercises at home since, and I suspect he has a component of deconditioning. PLAN: - Referral to physical therapy for evaluation and treatment. Will attempt to place the order for home health PT given the patient's current transportation limitations Diagnosis and treatment options discussed in detail. All questions answered. The patient and his mother understand and are agreeable to the plan. Discussion in layman's terms. Follow up in the office within 1 month; sooner if needed for new or worsening symptoms. documented in this encounter [facility] 05-07-2024 History of Present illness Narrative Discharge Criteria Inpatients must meet [...] responsible adult. Yes documented in this encounter [facility] 05-07-2024 Hospital Discharge instructions Ju Paulnio RN - 05/07/2024 9:39 AM EDT SAME [...] 14 days. documented in this encounter [facility] 05-01-2024 History of Present illness Narrative Pt's mother instructed on the pre-operative, intra-operative, and post-operative process. Medication instructions and pre operative instruction sheet reviewed. Pt to be NPO after midnight and may take Verapamil, Divalproex and Clonazepam with a small sip of water AM of procedure. CHG skin prep instructions reviewed.EKG completed. [facility] Preadmission Testing Name: Hari Thornton : 1975 Patient (home) [phone] (work) Procedure Right foot matriectomies Date of [...] in PAT? Yes documented in this encounter [facility] 11-13-2023 Evaluation note Encounter Date Diagnosis Assessment Notes Oct, Irritable bowel syndrome with diarrhea (ICD-10 - K58.0) [facility] Other 10-27-2023 Evaluation note* Encounter Date Diagnosis [...] use, the patient reduces the risk for AL, CVA, HTN, cardiac dysrhythmias and sudden cardiac [...] specific antigen) (ICD-10 - Z12.5) Yearly PSA [facility] Other 10-12-2023 Evaluation note* Encounter Date Diagnosis Assessment Notes Treatment Notes Treatment Clinical Notes Aug, Hyperlipidemia, mixed (ICD-10 - E78.2) Aug, Essential hypertension (ICD-10 - I10) [facility] Other 10-10-2023 Evaluation note* Encounter Date Diagnosis Assessment Notes Treatment Notes Treatment Clinical Notes Aug, Essential hypertension (ICD-10 - I10) Aug, Hyperlipidemia, mixed (ICD-10 - E78.2) [facility] Other 08-15-2023 Evaluation note* Encounter Date Diagnosis Assessment Notes Treatment Notes Treatment Clinical Notes Jun, Type 2 diabetes mellitus with hyperglycemia, without long-term current use of insulin (ICD-10 - E11.65) [facility] Other 04-25-2023 Evaluation note* Encounter Date Diagnosis Assessment Notes Treatment Notes Treatment Clinical Notes Feb, Type 2 diabetes mellitus with hyperglycemia, without long-term current use of insulin (ICD-10 - E11.65) [facility] Other 04-10-2023 Evaluation note* Encounter Date Diagnosis [...] use, the patient reduces the risk for AL, CVA, HTN, cardiac dysrhythmias and sudden cardiac [...] sun, spicy foods. Begin [employer] f/u Dermatology [facility] Other 03-28-2023 Evaluation note* Encounter Date Diagnosis Assessment Notes Treatment Notes Treatment Clinical Notes Jan, Essential hypertension (ICD-10 - I10) Jan, Hyperlipidemia, mixed (ICD-10 - E78.2) [facility] Other 03-28-2023 Evaluation note* Encounter Date Diagnosis Assessment Notes Treatment Notes Treatment Clinical Notes Jan, Essential hypertension (ICD-10 - I10) [facility] Other 2023 Evaluation note* Encounter Date Diagnosis Assessment Notes Treatment Notes Treatment Clinical Notes Jan, Essential hypertension (ICD-10 - I10) Jan, Hyperlipidemia, mixed (ICD-10 - E78.2) [facility] Other 03-17-2023 Evaluation note* Encounter Date Diagnosis Assessment Notes Treatment Notes Treatment Clinical Notes Jan, Chronic fatigue (ICD-10 - R53.82) [facility] Other 03-17-2023 Evaluation note* Encounter Date Diagnosis [...] of fatigue, depression etc as well as snf benefit w/ reducing risk for AF, CVA, AL Jan, Moderate episode of recurrent major depressive disorder (ICD-10 - F33.1) Healthy diet, increase activity, consistent sleep routine. f/u Psych Jan, Diarrhea, unspecified type (ICD-10 - R19.7) Likely diet and medication related. Await labs to r/o hepatic, renal involvement. May need to taper GLP-1 Avoid milk, juices and sauce. Increase yogurt, bananas and cheese [facility] Other 02-09-2023 Note [id number]#1.00CD:[address] [place] [address] 01-02-2023 NoteEndoscopy Care After Procedure Please read the instructions outlined below and refer to this sheet in the next few weeks. These discharge instructions provide you with general information on caring for [facility] Your doctor may also give you specific [...] Document Re-Released: 05/05/2007 ExitCare? Patient Information ?2009 [employer]. Colonoscopy Care After Surgery Please read the instructions outlined below and refer to this sheet in the next few weeks. These discharge instructions provide you with general information on caring for [facility] Your doctor may also give you specific [...] including vitamins, herbs, eye drops, creams, and xplr-rlh-urggnlm medicines. ? Any problems you or family members have had with anesthetic medicines. ? Any blood disorders you have. ? Any surgeries you have had. ? Any medical conditions you have. ? (more content not included)...[facility]02-08-2023 Hospital Discharge instructions Patient Education 01/02/2023 12:59:37 Endoscopy, Care After Procedure [facility] Endoscopy Care After Procedure Please read the instructions outlined below and refer to this sheet in the next few weeks. These discharge instructions provide you with general information on [facility] Your doctor may also give you [...] blood. Document Released: 06/25/2005 Document Re-Released: 05/05/2007 ExitCare Patient Information [employer]. 01/02/2023 12:59:37 Esophageal Dilatation Esophageal Dilatation Esophageal [...] including vitamins, herbs, eye drops, creams, and jbmh-hfq-vwptavl medicines. Any problems you or family members [...] home. Follow these instructions at home: Take tqad-gji-sejztat and prescription medicines only as told by [...] 01/02/2007 Document Revised: 10/24/2018 Document Reviewed: 09/16/2018 [place] Patient Education 2020 [employer]. 01/02/2023 12:59:37 Colonoscopy, Care After Surgery Salam [...] worse throughout the day. 01/02/2023 12:59:37 Diverticulitis, Mmtt-yk-Vxds Diverticulitis Diverticulitis is when small pockets in your large intestine (colon) get infected or swollen. This causes stomach pain and watery poop (diarrhea). These pouches are called diverticula. They form in people who have a condition called diverticulosis. Follow these instructions at home: Medicines Take zebp-lsr-vhqlxbg and prescription medicines only as told by [...] 04/29/2009 Document Revised: 10/24/2018 Document Reviewed: 11/28/2017 [place] Patient Education 2020 [employer]. 01/02/2023 12:59:37 Colon Polyps Colon Polyps Polyps [...] 08/07/2005 Document Revised: 02/26/2019 Document Reviewed: 02/26/2019 [place] Patient Education 2020 [employer]. 01/02/2023 12:59:37 Hemorrhoids, Potb-wf-Aliq Hemorrhoids Hemorrhoids are swollen veins that may [...] 3 times a day. General instructions Take yexp-gqg-vnkxxuy and prescription medicines only as told by [...] 08/20/2009 Document Revised: 11/19/2019 Document Reviewed: 04/02/2019 [place] Patient Education 2020 [employer] Follow Up Care 11/01/2022 13:05:57 With:Sylvester FITZPATRICK Address: [facility] [address] [place] [address] [facility] (1) When: Unknown Comments:Call for any problems. Office will call for follow up appt [facility]02-08-2023 Evaluation + Plan noteExtracted from: Title:ANES Post-operative Note Author:Keyon Ramey MD Date:01/02/23 Plan Transfer/Discharge: Transfer/Discharge Discharge when meets criteria ( To home ). Extracted from: Title:ANES Pre-operative Note Author:Kaleb Ramey MD Date:01/02/23 Plan [place] [employer] Anesthesiologists (ASA) physical status classification: Class III. Anesthetic Preoperative Plan: Anesthesia Monitored anethesia care. [facility]12-08-2022 Hospital Discharge instructions Patient Education 11/01/2022 [...] including vitamins, herbs, eye drops, creams, and dwbt-zni-cmqozmu medicines. Any problems you or family members [...] 11/08/2001 Document Revised: 09/03/2018 Document Reviewed: 01/22/2017 [place] Patient Education 2020 [employer]. Follow Up Care 09/28/2022 10:36:04 With:Sue Qureshi CNP Address: When:1 to 2 weeks Comments:Following colonoscopy. [facility] 03-22-2022 Note [id number]:127[facility] 02-13-2022 [id number]:[address] [place], [place] [address]312-30-2021 History of Present illness Narrative* Gabriella Grimaldo RN - 11/23/2021 9:00 AM EST Anesthesia to review pt's EKG pre op * Gabriella Grimaldo RN - 11/23/2021 9:00 AM EST [facility] Preadmission Testing Name: Hari Thornton : 1975 Patient (home) [phone] (work) Procedure AKUA HALLUX MATRIECTOMY Date of [...] Yes Surgery Location Verified: Yes Patient Language: WELSH Medical History Reviewed: Yes NPO Status Reinforced: Yes Ride and Caregiver Arranged: Yes Ride Caregiver Provider: TAMMY Pre-AdmissionTesting Checklist Patient has been to this health system before?: Yes Does patient refuse blood?: No Healthcare Directive: No, patient does not have an advance directive for healthcare treatment Application Technician needed: No Patient can read and write?: [...] instructions reviewed with patient. [facility] Work Phone: evaluation + Plan note No data available for this section [facility] Future Appointments Appointment Date:01/02/2023 12:40:00 PM Scheduled Provider: Location:[facility] Appointment Type:Surgery FT Future Scheduled Tests Laboratory* Fecal WBC Lactoferrin 11/01/22 * Giardia lamblia, Direct Detection EIA 11/01/22 * O & P Exam, Routine 11/01/22 * Clostridium Difficile PCR 11/01/22 * Enteric Panel by PCR 11/01/22 [facility] Evaluation note* Diagnosis Suicidal ideation- Primary Homicidal ideations Homicidal ideation documented in this [facility] Work Phone: evaldxuoth note* Diagnosis Acute upper respiratory infection- Primary Acute upper respiratory infections of unspecified site documented in this encounter [facility] Work Phone: evalrevdiu noteNo [facility] ePatientFinder Other Evaluation note* Diagnosis Onset Date Resolution Status Constipation due to slow transit acute Controlled type 2 diabetes mellitus with hyperglycemia acute Depression, major, recurrent, mild acute Essential hypertension acute Obstructive sleep apnea acut e Seborrheic dermatitis of scalp acute Stanley syndrome acute Cellulitis of finger of right hand [facility] Work Phone: Evaluation note* Diagnosis Onset Date Resolution Status Cellulitis of finger of right hand [facility] Work Phone: Evaluation note* Diagnosis Onset Date Resolution Status Constipation due to slow transit acute Controlled type 2 diabetes mellitus with hyperglycemia acute Depression, major, recurrent, mild acute Essential hypertension acute Obstructive sleep apnea acut e Stanley syndrome acute [facility] Work Phone: Evaluation note* Diagnosis Onset Date Resolution Status Controlled type 2 diabetes mellitus with hyperglycemia acute Depression, major, recurrent, mild acute Diarrhea acute Essential hypertension acute Obstructive sleep apnea acut e Stanley syndrome acute [facility] Work Phone: Evaluation note* Diagnosis Onset [...] (prostate specific antigen) acute Stanley syndrome acute [facility] Work Phone: evaluation note* Diagnosis Onset Date Resolution Status Controlled type 2 diabetes mellitus with hyperglycemia acute Depression, major, recurrent, mild acute Essential hypertension acute Hypercholesterolemia acute Irritable bowel syndrome wit h both constipation and diarrhea acute Medicare annual wellness visit, subsequent acute Obstructive sleep apnea acut e Screening PSA (prostate specific antigen) acute Tsanley syndrome acute [facility] Work Phone: Evaluation note* Diagnosis Tremor Abnormal involuntary movements documented in this encounter [facility] N[facility]ative - Reported* Type Description Date [...] KNEE SURGERY 2004 Surgical History RIGHT TYPANOPLASTY 2009 Surgical History B/L INGUINAL HERNIA Surgical History LEFT MYRINGOTOMY, T TUBE 2011 Surgical History RECURRENT INGUINAL HERNIA Surgical History RIGHT TOTAL KNEE ARTHROPLASTY Surgical History HYDROCELECTOMY, ADULT 2020 Surgical History MYRINGOTOMY OF LEFT TYMPANIC MEMBRANE WITH LOCAL ANESTHESIA Hospitalization History SEE SURGICAL HX [facility] Other History general Narrative - Reported* Type Description [...] RECONSTRUCTION 2005 Surgical History RIGHT KNEE SURGERY 2005 Surgical History RIGHT TYPANOPLASTY 2009 Surgical History B/L INGUINAL HERNIA Surgical History LEFT MYRINGOTOMY, T TUBE 2011 Surgical History RECURRENT INGUINAL HERNIA Surgical History RIGHT TOTAL KNEE ARTHROPLASTY 2 023 Surgical History HYDROCELECTOMY, ADULT 2020 Surgical History MYRINGOTOMY OF LEFT TYMPANIC MEMBRANE WITH LOCAL ANESTHESIA Hospitalization History SEE SURGICAL HX [facility] Other Hospital Discharge instructions* Attachments The following attachments cannot be sent through Care Everywhere. * URI (Upper Respiratory Infection): Viral (Vietnamese) * Sinus Rinse (Vietnamese) documented in this encounterBON DAVION Manyeta Phone: Hospital Discharge instructions No data available for this section [facility] No data available for this section [facility] Narrative* Auth/Cert Specialty Diagnoses / Procedures Referred By Contac t Referred To Contact Diagnoses Ingrown toenail of both feet CHRONIC INGROWNS Procedures AR REMOVAL OF NAIL BED NAILBED EXCISION MATRIXECTOMY-HALLUX Kashmir Kelly, DPM [address] [place] [address] [email or web address] [address] [place] [address] Referral ID Status Reason Start Date Expiration Date Visits Re quested Visits Authorized [id number] 1 1 [employer] Phone: Summary Purpose Family History Relationship Condition Age at Onset Recorded Date/T jordyn Not Specified Diabetes mellitus Unknown Relationship Condition Age at Onset Recorded Date/T jordyn mother Diabetes mellitus Unknown Advance Directives Documents on File Type Date Recorded Patient Mock Up Assembler Expl anation ACP-Guardianship 05/22/2022 1:36 PM Date Activated Date Inactivated Comments 05/17/2022 10:29 AM 05/18/2022 5:08 PM Documents on File Type Date Recorded Patient Mock Up Assembler Expl anation ACP-Advance Directive ACP-Power of Contract Preparer Documents on File Type Date Recorded Patient Mock Up Assembler Expl anation ACP-Advance Directive ACP-Power of Contract Preparer Latest Code Status on File Code Status Date Activated Date Inactivated Comments Full Code 05/17/2022 10:29 AM 05/18/2022 5:08 PM Advance Directive Response Recorded Date/ Time Advance Directives No April 29 6:50pm Latest Code Status on File Code Status Date Activated Date Inactivated Comments Full Code 05/17/2022 10:29 AM 05/18/2022 5:08 PM Documents on File Type Date Recorded Patient Mock Up Assembler Expl anation ACP-Guardianship 05/22/2022 1:36 PM Latest [...] RN - 11/16/2020 8:00 AM EST [facility] Preadmission Testing Name: Hari Thornton : [...] Yes Surgery Location Verified: Yes Patient Language: WELSH Medical History Reviewed: Yes NPO Status Reinforced: Yes Ride and Caregiver Arranged: Yes Ride Caregiver Provider: TEMO Pre-AdmissionTesting Checklist Patient has been to this health system before?: Yes Does patient refuse blood?: No Healthcare Directive: No, patient does not have an advance directive for healthcare treatment Application Technician needed: No Patient can read and write?: Yes Xzzg-fs-Ytlb: Does the patient want to have any [...] question or concerns please call the office ([phone]). If after hours Dr. Kelly can be reached at [phone] (home) or [phone] (cell phone). documented in this encounter Chief [...] Screening PSA (prostate specific antigen) Stanley syndrome Chief Complaint I63.81 3 month f/u flu shot Reason for Visit Controlled type 2 di [...] section and content) DATE CREATED AUTHOR 05/15/2018 [facility] DATE CREATED AUTHOR AUTHOR'S ORGANIZ ATION 05/19/2022 [facility] DATE CREATED AUTHOR AUTHOR'S ORGANIZ ATION 01/17/2023 [facility] DATE CREATED AUTHOR AUTHOR'S ORGANIZ ATION 04/10/2023 [facility] DATE CREATED AUTHOR AUTHOR'S ORGANIZ ATION 07/09/2024 [facility] DATE CREATED AUTHOR AUTHOR'S ORGANIZ ATION 07/22/2024 [facility] EPIC DATE CREATED AUTHOR AUTHOR'S ORGANIZ ATION 11/08/2024 [facility] pital Reason for Visit (unrecogniz ed section and content) Status Reason Specialty Diagnoses / Procedures Referre d By Contact Referred To Contact Closed Radiology Diagnoses Alternating exotropia Diplopia Myopathy of extraocular muscles, bilateral Procedures HC MRI-BRAIN WO & W CONTRAST 45310 MRI BRAIN WWO Bipin Quintana Y, DO [address] [place] [address] [facility] [address] [place] [address] Status Reason Specialty Diagnoses / Procedures Referre d By Contact Referred To Contact Diagnoses Skin lesion SKIN LESION LEFT PLANTAR FOOT Procedures AR EXC TUMOR SOFT TISSUE FOOT/TOE SUBFASC <1.5CM FOOT LESION BIOPSY EXCISION, PLANTAR Kashmir Kelly, DPM [address] [place] [address] [facility] Reason Comments Suicidal Pt reports thoughts of suicide after fight with girlfriend today Reason Comments Concern For COVID-19 Pt was exposed to C ovid and has recently had cough and headache with episodes of tachycardia Specialty Diagnoses / Procedures Referred By Alana barragan Referred To Contact Diagnoses Onychocryptosis Onychocryptosis [L60.0] Procedures AR EXCISION NAIL MATRIX PERMANENT REMOVAL NAILBED EXCISION MATRIXECTOMY- DIGITS 1,4,5 Kashmir Kelly, DPM [address] [place] [address] [facility] [address] [place] [address] Referral ID Status Reason Start Date Expiration Date Visits Re quested Visits Authorized [id number] 1 1 Reason Comments Tremors Care Teams (unrecognized sec tion and content) Team Status: Active Member Role Status Dates Narayan Gagnon DO Primary Care Provider Active Team Status: Inactive Member Role Status Dates Narayan Gagnon DO Primary Care Provide r, Attending Provider Active Start: June 24, 2024 End: June 24, 2024 Team Status: Inactive Member Role Status Dates Narayan Gagnon DO Primary Care Provider Active Start: July 02, 2024 End: July 02, 2024 JAYASHERE Porter Attending Provider Active Start: July 02, 2024 [...] May 15, 2024 End: May 15, 2024 JAYASHREE Porter Attending Provider Active Start: May 15, 2024 End: May 15, 2024 Team Status: Active Member Role Status Destin Gagnon DO Primary Care Provide r, Attending Provider Active Start: June 11, 2024 Team Status: Inactive Member Role Status Dates Narayan Gagnon DO Primary Care Provider Active Start: March 12, 2024 End: March 12, 2024 Janan Krause APRN CEMENT RUBBER-C Attending Provider Act sharyn Start: March 12, 2024 End: March 12, 2024 Database Designer Relationship Specialty Start Date End Date Narayan Gagnon DO PCP - General 07/30/14 Database Designer Relationship Specialty Start Date End Date Narayan Gagnon DO PCP - General 07/30/14 Database Designer Relationship Specialty Start Date End Date Narayan Gagnon DO PCP - General 07/30/14 Database Designer Relationship Specialty Start Date End Date Narayan [...] January 23, 2024 End: January 23, 2024 Database Designer Relationship Specialty Start Date End Date Narayan Gagnon DO PCP - General 07/30/14 Database Designer Relationship Specialty Start Date End Date Narayan Gagnon DO PCP - General 07/30/14 Team Status: Inactive Member Role Status Dates Narayan Gagnon DO Primary Care Provide r, Attending Provider Active Start: September 25, 2024 End: September 25, 2024 Database Designer Relationship Specialty Start Date End Date Narayan Gagnon DO PCP - General 07/30/14 Database Designer Relationship Specialty Start Date End Date Narayan Gagnon MD [address] [place] [phone] PCP - General Internal Medicine 06/26/23 Database Designer Relationship Specialty Start Date End Date Narayan Gagnon MD [address] [facility] [place] [id number] PCP - General Internal Medicine 06/26/23 Scheduled Active and Recently Administ ered Medications [...] 10 mg, Oral, ONCE, 1 dose, On Sat05/17/22 at 0000 0018 (Given - Provid er: [...] (NoRateChange - Provider: Janna Love APRN - MASTER PLANNER)0920 (Rate/Dose Change - Provider: Janna Love APRN - MASTER PLANNER)0953 (Stopped - Provider: Ju aPulino RN) PRN Medication Order 05/05/2024 05/06/2024 05/07/2024 [...] BE BASED ON THE PRIMARY CLINICAL RECORDS. [facility]. provides no warranty or guarantee of the accuracy or completeness of information in this document.
--- NOTE | 2024-11-24 20:05 | ECG_ITS ---
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
--- NOTE | 2024-11-24 20:06 | XR_ITS ---
[facility] [place] [id number] Patient Name: INES THORNTON MRN: [id number] date: 1975 Sex: M Assigned Patient Location: ER Current Patient Location: ER Accession/Order Number: [id number] Exam Date: 11/24/2024 20:35 Report Date: 11/24/2024 23:11 At the request of: SILVANA LUCAS Procedure: XR chest 2V EXAMINATION: XR chest 2V, , 11/24/2024 8:35 PM EST INDICATION: cough HISTORY: Ordering Provider Reason for Exam: cough Technologist Note: Additional: COMPARISON: None. TECHNIQUE: Chest x-ray: Two views. FINDINGS: No pneumothorax, pleural effusion or focal airspace consolidation. Heart is normal in size. Bony thorax is unremarkable. XR/XR chest 2V IMPRESSION: No acute cardiopulmonary process. Electronically authenticated by: SULEMAN WOLF Date: 11/24/2024 23:11
--- NOTE | 2024-11-24 20:10 | ED_ITS ---
HPI HPI - General Adult General Chief complaint: Upper Respiratory Infection Stated complaint: COLD SYMPTOMS Time Seen by Provider: 11/24/24 19:59 Source: patient and family Mode of arrival: walk-in Limitations: other Limitations comment: Stanley Syndrome History of Present Illness HPI narrative: 49-year-old male to the emergency department chief complaint of cough, nasal congestion, malaise. He is here with his mother who provides history. Patient has a history of Stanley syndrome. She reports that he has been sick for 5 days with the above symptoms. He has been drinking normally but not eating as much as he normally does. He has a tremor at baseline. The tremor has been worse since he has been sick. No nausea, vomiting, diarrhea. He reports occa sionally his stomach is upset. Mother is concerned something is going on more than a simple cold. Related Data Home Medications ?Medication ?Instructions ?Recorded ?Confirmed clonazepam 1 mg tablet mg 11/24/24 divalproex 500 mg tablet,extended mg PO 11/24/24 release 24 hr dulaglutide 0.75 mg/0.5 mL mg subcut 11/24/24 subcutaneous pen injector (Trulicity) dulaglutide 1.5 mg/0.5 mL mg subcut 11/24/24 subcutaneous pen injector (Trulicity) duloxetine 60 mg capsule,delayed mg PO 11/24/24 release empagliflozin 25 mg tablet mg 11/24/24 (Jardiance) glimepiride 2 mg tablet mg 11/24/24 glimepiride 4 mg tablet mg 11/24/24 iloperidone 6 mg tablet (Fanapt) mg 11/24/24 lisinopril 20 mg tablet mg 11/24/24 pravastatin 20 mg tablet mg 11/24/24 primidone 50 mg tablet mg 11/24/24 tizanidine 4 mg tablet mg 11/24/24 tramadol 50 mg tablet mg 11/24/24 trazodone 100 mg tablet mg 11/24/24 verapamil 180 mg tablet,extended mg PO 11/24/24 release Previous Rx's ?Medication ?Instructions ?Recorded doxycycline monohydrate 100 mg 100 mg PO BID 7 days #14 caps 11/24/24 capsule Allergies Allergy/AdvReac Type Severity Reaction Status Date / Time Penicillins Allergy Severe Rash Verified 11/24/24 20:02 vancomycin Allergy Severe Anaphylaxis Verified 11/24/24 20:02 morphine AdvReac Mild Nausea Verified 11/24/24 20:02 Opioid HPI Opioid Management Most Recent Opioid Data: No Data to Display Review of Systems ROS Status of ROS 10 or more systems reviewed and unremark able except as noted in history and below PFSH PFSH Social History Little interest or pleasure in doing things: not at all Feeling down, depressed, or hopeless: not at all Exam Narrative Exam Narrative: VITALS: I have reviewed the triage vital signs. GENERAL: Well developed, well appearing adult in no acute distress. Essential tremor. NEURO: Alert and oriented. Moves all extremities. Face is symmetric and expressive. EYES: PERRL. No scleral icterus or conjunctival injection. No discharge. HENT: Normocephalic, atraumatic. Hearing is grossly intact. Bilateral nasal congestion. Mucous membranes moist. NECK: No JVD. Patient moves neck without restriction. CARDIO: Rhythm regular. Normal rate. No murmur, rub, or gallop. Pulses equal bilaterally in the upper and lower extremity. No lower extremity edema. PULM: Rhonchi that clear with coughing. no conversational dyspnea. No splinting, stridor, or accessory muscle use. GI/: Abdomen is soft and non-tender. Normoactive bowel sounds. EXTREMITIES: Symmetric muscle bulk. No joint swelling. No clubbing, cyanosis, or deformity. SKIN: Warm and dry. Normal turgor. No rash or lesions appreciated. PSYCH: Anxious Constitutional Vital Signs, click to edit/add: Last Vital Signs Temp 99.7 F 11/24/24 23:35 Pulse 107 H 11/24/24 23:35 Resp 18 11/24/24 23:35 BP 104/62 11/24/24 23:35 Pulse Ox 93 L 11/24/24 23:35 O2 Del Method Room Air 11/24/24 23:35 Course Vital Signs Vital signs: Vital Signs Temperature 98.3 F 11/24/24 19:49 Pulse Rate 104 H 11/24/24 19:49 Respiratory Rate 20 11/24/24 19:49 Blood Pressure 160/82 H 11/24/24 19:49 Pulse Oximetry 93 L 11/24/24 19:49 Oxygen Delivery Method Room Air 11/24/24 19:49 Temperature 99.7 F 11/24/24 23:35 Pulse Rate 107 H 11/24/24 23:35 Respiratory Rate 18 11/24/24 23:35 Blood Pressure 104/62 11/24/24 23:35 Pulse Oximetry 93 L 11/24/24 23:35 Oxygen Delivery Method Room Air 11/24/24 23:35 Medical Decision Making MDM Narrative Medical decision making narrative: 49-year-old male to the emergency department with chief complaint of cough, nasal congestion, malaise, worsening of his essential tremor over the last 5 days. He is tachycardic, otherwise stable vitals. The patient is afebrile. He is very anxious. Patient tells me multiple times he does not want an IV. Will obtain basic labs, chest x-ray, respiratory swabs. CBC and chemistry without abnormality. His chest x-ray is without abnormality. COVID and flu are negative. Patient was becoming increasingly tachycardic and did spike a fever. This was treated with ibuprofen. His heart rate came down expectedly. He felt much improved. His tremor went back to baseline. He was able to tolerate oral intake. Discussed findings with the patient and his mother. Given his cough fever and a high predominance of mycoplasma pneumonia in the community at this time I believe it is reasonable to cover him for atypical pneumonia with doxycycline. Patient states he would like to be discharged. His mother agrees with this plan. Return precautions were discussed. All questions were answered. First dose of doxycycline was given in the ER. He was sent home with a prescription. The patient was discharged home into the care of his mother. Medical Records Medical records reviewed: Yes I reviewed the patient's medical records Lab Data Lab results reviewed: Yes I reviewed the patient's lab results Labs: Lab Results 11/24/24 11/24/24 11/24/24 Range/Units 20:15 20:22 21:00 WBC 6.6 (4.0-11.0) 10^3/uL RBC 4.24 L (4.70-6.10) 10^6/uL Hgb 13.6 L (14.0-18.0) g/dL Hct 39.6 L (42.0-54.0) % MCV 93.4 (80.0-94.0) fL MCH 32.1 (25.9-34.0) pg MCHC 34.3 (29.9-35.2) g/dL RDW 12.7 (11.0-15.0) % Plt Count 136 L (150-450) 10^3/uL MPV 9.9 (9.5-13.5) fL Neut % (Auto) 69.0 (43.0-75.0) % Lymph % (Auto) 13.9 L (20.5-60.0) % [place] % (Auto) 14.6 H (1.7-12.0) % Eos % (Auto) 1.4 (0.9-7.0) % Baso % (Auto) 0.3 (0.2-2.0) % Neut # (Auto) 4.6 (1.4-6.5) 10^3/uL Lymph # (Auto) 0.9 L (1.2-3.8) 10^3/uL [place] # (Auto) 1.0 H (0.3-0.8) 10^3/uL Eos # (Auto) 0.1 (0.0-0.7) 10^3/uL Baso # (Auto) 0.0 (0.0-0.1) 10^3/uL Abs Immat Gran (auto) 0.05 H (0.00-0.03) 10^3/uL Imm/Tot Granulo (auto) 0.8 H (0.0-0.5) % Sodium 135 L (136-145) mmol/L Potassium 4.0 (3.5-5.1) mmol/L Chloride 99 (98-107) mmol/L Carbon Dioxide 22.8 (21.0-32.0) mmol/L Anion Gap 17.2 BUN 7.0 (7.0-18.0) mg/dL Creatinine 0.94 (0.70-1.30) mg/dL Est GFR ( Amer) >60 (>=60 mL/min/1.73m^2) Est GFR (Non-Af Amer) >60 (>=60 mL/min/1.73m^2) BUN/Creatinine Ratio 7.4 Glucose 236 H (74-106) mg/dL Calcium 8.9 (8.5-10.1) mg/dL Urine Color Lt. yellow (YELLOW) Urine Clarity Clear (CLEAR) Urine pH 5.5 (5.0-9.0) Ur Specific [place] <=1.005 A (1.005-1.025) Urine Protein Negative (NEG/TRACE) mg/dL Urine Glucose (UA) >=1000 A (NEGATIVE) mg/dL Urine Ketones Trace A (NEGATIVE) mg/dL Urine Occult Blood Negative (NEGATIVE) Urine Nitrite Negative (NEGATIVE) Urine Bilirubin Negative (NEGATIVE) Urine Urobilinogen 0.2 (0.2-1.0) EU/dL Ur Leukocyte Esterase Negative (NEGATIVE) Influenza Type A Ag Negative Influenza Type B Ag Negative SARS-CoV-2 Ag (CV2AG) Negative (NEGATIVE) Imaging Data Chest x-ray: Attestation: I have reviewed the pertinent imaging results. Radiologist's impression: ITS Impressions Chest X-Ray 11/24/24 20:06 IMPRESSION: No acute cardiopulmonary process. Electronically authenticated by: SULEMAN WOLF Date: 11/24/2024 23:11 ECG Data Attestation: I personally reviewed and interpreted this ECG as follows: (Sinus tachycardia rate of 124. No STEMI. Normal QTc) Discharge Plan Discharge Chief Complaint: Upper Respiratory Infection Clinical Impression: Atypical pneumonia Patient Disposition: Home, Self-Care Time of Disposition Decision: 23:42 Condition: Good Mode of Transportation: Private Vehicle Prescriptions / Home Meds: New doxycycline monohydrate 100 mg capsule 100 mg PO BID 7 Days Qty: 14 0RF No Action primidone 50 mg tablet tizanidine 4 mg tablet lisinopril 20 mg tablet clonazepam 1 mg tablet verapamil 180 mg tablet extended release PO tramadol 50 mg tablet glimepiride 2 mg tablet trazodone 100 mg tablet glimepiride 4 mg tablet divalproex 500 mg tablet extended release 24 hr PO pravastatin 20 mg tablet duloxetine 60 mg capsule,delayed release(DR/EC) PO Fanapt 6 mg tablet Jardiance 25 mg tablet Trulicity 0.75 mg/0.5 mL pen injector SUBCUT Trulicity 1.5 mg/0.5 mL pen injector SUBCUT Print Language: Azerbaijani Instructions: Community Acquired Pneumonia (ED) Additional Instructions: Call the office of your primary care doctor to arrange for follow-up within the above-stated timeframe. Your ED visit was focused on your acute issue and does not replace primary care. You should review your labs, imaging, and diagnoses f rom this ED visit with your primary care physician. There may be non-emergent/ incidental findings that need further evaluation. You should review your vital signs including blood pressure with your PCP. If you were prescribed medications you should discuss possible side-effects and drug interactions with your pharmacist. Call 911 or go to the nearest Emergency Department if you develop any new or worsening symptoms. Seek immediate medical attention if you develop: worsening shortness of breath, difficulty breathing, chest pain, nausea, vomiting, weakness, numbness, tingling, excessive sweating, loss of motion in your arms or legs, or any new or worsening symptoms. Referrals: Narayan Garcia DO [Primary Care Provider] - 1 week
[2024-11-24 20:37] LABS: Basophils Percent Auto 0.3 % (0.2-2.0); Eosinophils Absolute Auto 0.1 10^3/uL (0.0-0.7); Eosinophils Percent Auto 1.4 % (0.9-7.0); Hematocrit 39.6 % (42.0-54.0); Hemoglobin 13.6 g/dL (14.0-18.0); Immature Granulocytes Abs Auto 0.05 10^3/uL (0.00-0.03); Immature Granulocytes Pct Auto 0.8 % (0.0-0.5); Lymphocytes Absolute Auto 0.9 10^3/uL (1.2-3.8); Lymphocytes Percent Auto 13.9 % (20.5-60.0); Mean Corpuscular HGB Conc 34.3 g/dL (29.9-35.2); Mean Corpuscular Hemoglobin 32.1 pg (25.9-34.0); Mean Corpuscular Volume 93.4 fL (80.0-94.0); Mean Platelet Volume 9.9 fL (9.5-13.5); Monocytes Percent Auto 14.6 % (1.7-12.0); Neutrophils Absolute Auto 4.6 10^3/uL (1.4-6.5); Red Blood Count 4.24 10^6/uL (4.70-6.10); Red Cell Distribution Width 12.7 % (11.0-15.0); White Blood Count 6.6 10^3/uL (4.0-11.0)
[2024-11-24 20:38] LABS: Platelet Count 136 10^3/uL (150-450)
[2024-11-24 20:39] LABS: Anion Gap 17.2; BUN Creatinine Ratio 7.4; Calcium 8.9 mg/dL (8.5-10.1); Carbon Dioxide 22.8 mmol/L (21.0-32.0); Chloride 99 mmol/L (98-107); Estimated GFR (African America >60 (>=60 mL/min/1.73m^2); Estimated GFR (Non-African Ame >60 (>=60 mL/min/1.73m^2); Glucose 236 mg/dL (74-106); Sodium 135 mmol/L (136-145)
[2024-11-24 20:43] LABS: Influenza Virus A Antigen Negative; Influenza Virus B Antigen Negative; Internal Control Within Normal Limits; SARS-CoV-2 Ag NEGATIVE (NEGATIVE)
--- NOTE | 2024-11-24 21:10 | PC.NURSE ---
Pt reuses O2 and Saline lock
[2024-11-24 21:14] LABS: Bilirubin Urine NEGATIVE (NEGATIVE); Blood Urine NEGATIVE (NEGATIVE); Clarity Urine CLEAR (CLEAR); Color Urine LT. YELLOW (YELLOW); Glucose Urine UA >=1000 mg/dL (NEGATIVE); Ketones Urine TRACE mg/dL (NEGATIVE); Leukocyte Esterase Urine NEGATIVE (NEGATIVE); Nitrite Urine NEGATIVE (NEGATIVE); Protein Urine NEGATIVE (NEG/TRACE); Specific Gravity Urine <=1.005 (1.005-1.025); Urobilinogen Urine 0.2 EU/dL (0.2-1.0); pH Urine 5.5 (5.0-9.0)
[2024-11-24] MEDS: IBUPROFEN 400 MG TABLET 800 MG PO (21:15)
[2024-11-24 21:18] LABS: Urine Microscopic Indicated NO
[2024-11-24 22:19] VITALS: BP 128/79; PULSE 111; TEMP 38.4; O2SAT 93
[2024-11-24 22:21] VITALS: PULSE 118
[2024-11-24] MEDS: ACETAMINOPHEN 325 MG TABLET 650 MG PO (22:36)
--- NOTE | 2024-11-24 22:41 | PC.NURSE ---
Pt states that he feels so much better. Less tremulous and marciano complexion. Sitting up in the bed conversing and smiling.
[2024-11-24 23:35] VITALS: BP 104/62; PULSE 107; TEMP 37.6; O2SAT 93
[2024-11-24] MEDS: DOXYCYCLINE MONOHYDRATE 100 MG CAPSULE PO (23:53)
== END 2024-11-24 23:55 | disposition home or self-care (01) ==
PROVIDERS: Emergency Provider Student in an Organized Health Care Education/Training Program; PCP Internal Medicine
DX: J18.9 Pneumonia, unspecified organism (principal); Q93.82 Williams syndrome; R50.9 Fever, unspecified
CPT/HCPCS: 36415; 71046; 80048; 81003; 85025; 87804; 87811; 93005; 99285

== ENCOUNTER 2024-12-11 13:46 | Emergency (ER) | payer MEDICARE, MEDICAID, SELFPAY ==
[2024-12-11] VITALS (11 sets, daily range): BP systolic 111–148; BP diastolic 55–87; PULSE 93–125; TEMP 37.1–37.5; O2SAT 91–94; BMI 27.9
--- NOTE | 2024-12-11 13:57 | XR_ITS ---
The [address] [address] Patient Name: INES THORNTON MRN: [id number] date: 1975 Sex: M Assigned Patient Location: ED.MAIN Current Patient Location: ED.MAIN Accession/Order Number: [id number] Exam Date: 12/11/2024 14:15 Report Date: 12/11/2024 14:50 At the request of: ERICK HOBBS Procedure: XR chest 1V EXAMINATION: XR chest 1V HISTORY: pneumonia COMPARISON: XR chest 11/24/2024 FINDINGS: LUNGS: No significant pulmonary parenchymal abnormalities. VASCULATURE: No increased pulmonary vasculature. PLEURA: No pneumothorax, effusion, or pleural thickening. CARDIAC: No cardiomegaly or cardiac silhouette abnormality. MEDIASTINUM: No visible mass or adenopathy. BONES: No fracture or visible bone lesion. OTHER: Small amount of free air beneath the right diaphragm. XR/XR chest 1V IMPRESSION: 1. There appears to be a small amount of free intraperitoneal air below the right hemidiaphragm. This could also represent interposed bowel between the liver and diaphragm. Consider abdominal radiographs for confirmation or CT abdomen if clinically suspicious. 2. Underexpanded lungs. No appreciable pulmonary infiltrates. Findings discussed with [place] emergency department via telephone to be relayed to Dr. Hobbs. Electronically authenticated by: ERIKA HUMPHREY Date: 12/11/2024 14:50
--- NOTE | 2024-12-11 13:57 | ECG_ITS ---
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
[2024-12-11] MEDS: 0.9 % SODIUM CHLORIDE 1,000 ML 1000 ML IV (14:20)
[2024-12-11 14:21] LABS: Basophils Percent Auto 0.5 % (0.2-2.0); Eosinophils Percent Auto 0.2 % (0.9-7.0); Hematocrit 40.4 % (42.0-54.0); Hemoglobin 14.1 g/dL (14.0-18.0); Immature Granulocytes Abs Auto 0.03 10^3/uL (0.00-0.03); Immature Granulocytes Pct Auto 0.7 % (0.0-0.5); Lymphocytes Absolute Auto 0.8 10^3/uL (1.2-3.8); Lymphocytes Percent Auto 18.4 % (20.5-60.0); Mean Corpuscular HGB Conc 34.9 g/dL (29.9-35.2); Mean Corpuscular Hemoglobin 32.6 pg (25.9-34.0); Mean Corpuscular Volume 93.5 fL (80.0-94.0); Mean Platelet Volume 9.5 fL (9.5-13.5); Monocytes Absolute Auto 0.6 10^3/uL (0.3-0.8); Monocytes Percent Auto 14.9 % (1.7-12.0); Neutrophils Absolute Auto 2.8 10^3/uL (1.4-6.5); Neutrophils Percent Auto 65.3 % (43.0-75.0); Platelet Count 184 10^3/uL (150-450); Red Blood Count 4.32 10^6/uL (4.70-6.10); Red Cell Distribution Width 13.2 % (11.0-15.0); White Blood Count 4.2 10^3/uL (4.0-11.0)
[2024-12-11 14:30] LABS: INR 1.04
[2024-12-11 14:30] LABS: Influenza Virus A Antigen Positive; Influenza Virus B Antigen Negative; Internal Control Within Normal Limits; Respiratory Syncytial Virus Not Detected (NOT DETECTE); SARS-CoV-2 Ag NEGATIVE (NEGATIVE)
[2024-12-11] MEDS: ACETAMINOPHEN 325 MG TABLET 650 MG PO (14:43)
--- NOTE | 2024-12-11 14:52 | CT_ITS ---
[address] [address] Patient Name: INES THORNTON MRN: [id number] date: 1975 Sex: M Assigned Patient Location: ER Current Patient Location: Accession/Order Number: [id number] Exam Date: 12/11/2024 14:55 Report Date: 12/11/2024 15:25 At the request of: ERICK HOBBS Procedure: CT abdomen pelvis wo con EXAMINATION: CT abdomen pelvis wo con HISTORY: suspected free air on chest xray COMPARISON: No relevant comparison available. TECHNIQUE: Axial, Coronal, and Sagittal images were obtained without and/or with IV contrast as indicated by examination type. Dose reduction techniques were achieved by using automated exposure control and/or adjustment of mA and/or kV according to patient size and/or use of iterative reconstruction technique. FINDINGS: LUNG BASES: Trace amount of pericardial fluid. No visible pulmonary or pleural disease. LIVER: No enlargement, atrophy, suspicious density, or significant focal lesion. BILIARY: No dilatation or calcification. PANCREAS: No lesion, fluid collection, or abnormal duct dilatation. SPLEEN: Mildly enlarged, 15.1 cm. ADRENALS: No mass or enlargement. KIDNEYS: No mass, obstruction, or calcification. BOWEL/MESENTERY: Numerous air-fluid levels throughout the small bowel without abnormal dilation or obstruction. Diverticulosis throughout the length of the colon without acute inflammatory changes. No free air or free fluid. No visible mass, obstruction, or bowel wall thickening. AORTA/VASCULAR: No aneurysm or dissection. RETROPERITONEUM: No mass or adenopathy. LYMPH NODES: No adenopathy. URINARY BLADDER: No visible focal wall thickening, lesion, or calculus. PELVIC ORGANS: No visible mass. Pelvic organs appropriate for patient age. ABDOMINAL WALL: Small fat filled left inguinal hernia without strangulation. BONES: No bony lesion or fracture. OTHER: Negative. CT/CT abdomen pelvis wo con IMPRESSION: 1. No intraperitoneal free air or free fluid. Findings on today's chest x-ray appear to have been due to bowel interposed between the liver and diaphragm. 2. Marked colonic diverticulosis. No acute findings. 3. Mild splenomegaly of uncertain etiology. 4. Tiny pericardial effusion. Electronically authenticated by: ERIKA HUMPHREY Date: 12/11/2024 15:25
[2024-12-11 14:59] LABS: Alanine Aminotransferase 32 U/L (16-63); Albumin Globulin Ratio 1.1; Albumin Level 3.8 g/dL (3.4-5.0); Alkaline Phosphatase 55 U/L (46-116); Anion Gap 18.2; Aspartate Amino Transferase 21 U/L (15-37); BUN Creatinine Ratio 9.4; Bilirubin Total 0.4 mg/dL (0.2-1.0); Calcium 9.6 mg/dL (8.5-10.1); Carbon Dioxide 23.5 mmol/L (21.0-32.0); Chloride 102 mmol/L (98-107); Estimated GFR (African America >60 (>=60 mL/min/1.73m^2); Estimated GFR (Non-African Ame >60 (>=60 mL/min/1.73m^2); Globulin 3.6 g/dL; Glucose 132 mg/dL (74-106); Lactate/Lactic Acid 1.4 mmol/L (0.4-2.0); Magnesium 1.9 mg/dL (1.8-2.4); Potassium 3.7 mmol/L (3.5-5.1); Sodium 140 mmol/L (136-145); Total Protein 7.4 g/dL (6.4-8.2)
[2024-12-11] MEDS: 0.9 % SODIUM CHLORIDE 1,000 ML 500 ML IV (16:00)
[2024-12-11 16:11] LABS: Bilirubin Urine NEGATIVE (NEGATIVE); Blood Urine NEGATIVE (NEGATIVE); Clarity Urine CLEAR (CLEAR); Color Urine LT. YELLOW (YELLOW); Glucose Urine UA >=1000 mg/dL (NEGATIVE); Ketones Urine 40 mg/dL (NEGATIVE); Leukocyte Esterase Urine NEGATIVE (NEGATIVE); Nitrite Urine NEGATIVE (NEGATIVE); Protein Urine NEGATIVE (NEG/TRACE); Urine Microscopic Indicated NO; Urobilinogen Urine 0.2 EU/dL (0.2-1.0)
--- NOTE | 2024-12-11 16:50 | ED_ITS ---
HPI HPI - General Adult General Chief complaint: Upper Respiratory Infection Stated complaint: URTI COMPLAINTS Time Seen by Provider: 12/11/24 13:56 Source: patient Mode of arrival: walk-in History of Present Illness HPI narrative: Patient brought to us by his mother after he was sent here for evaluation by his primary care doctor, the patient was noted in PCP office that he is tachycardic and orthostatic, upon arrival the patient was tachycardic he has been having this cough for the last 3 days although the mother mentioned that earlier this month he also was diagnosed with pneumonia at the He did get better after antibiotics but apparently 3 days ago he started having symptoms again, and when asked about contact with anybody you have similar symptoms apparently the patient's brother who does not live with them but he does have contact with them have influenza The patient is not providing history is mostly provided by the mother He had been having cough no decreased p.o. intake and no nausea vomiting no diarrhea but they mentioned that he had some fever Related Data Home Medications ?Medication ?Instructions ?Recorded ?Confirmed clonazepam 1 mg tablet 1 mg PO DAILY 11/24/24 12/11/24 divalproex 500 mg tablet,extended 500 mg PO BID 11/24/24 12/11/24 release 24 hr dulaglutide 1.5 mg/0.5 mL 1.5 mg subcut QWEEK 11/24/24 12/11/24 subcutaneous pen injector (Trulicity) duloxetine 60 mg capsule,delayed 60 mg PO DAILY 11/24/24 12/11/24 release empagliflozin 25 mg tablet 25 mg PO DAILY 11/24/24 12/11/24 (Jardiance) glimepiride 4 mg tablet 4 mg PO BID 11/24/24 12/11/24 iloperidone 6 mg tablet (Fanapt) 6 mg PO BID 11/24/24 12/11/24 lisinopril 20 mg tablet 20 mg PO DAILY 11/24/24 12/11/24 pravastatin 20 mg tablet 20 mg PO DAILY 11/24/24 12/11/24 primidone 50 mg tablet 50 mg PO BID 11/24/24 12/11/24 tizanidine 4 mg tablet 4 mg PO DAILY 11/24/24 12/11/24 tramadol 50 mg tablet 50 mg PO Q12H 11/24/24 12/11/24 trazodone 100 mg tablet 100 mg PO DAILY 11/24/24 12/11/24 verapamil 180 mg tablet,extended 180 mg PO DAILY 11/24/24 12/11/24 release Previous Rx's ?Medication ?Instructions ?Recorded guaifenesin 600 mg tablet, 600 mg PO BID PRN cough #10 tabs 12/11/24 extended release 12 hr (Mucinex) oseltamivir 75 mg capsule (Tamiflu) 75 mg PO BID 5 days #10 caps 12/11/24 Allergies Allergy/AdvReac Type Severity Reaction Status Date / Time Penicillins Allergy Severe Rash Verified 11/24/24 20:02 vancomycin Allergy Severe Anaphylaxis Verified 11/24/24 20:02 morphine AdvReac Mild Nausea Verified 11/24/24 20:02 Opioid HPI Opioid Management Most Recent Opioid Data: Last Pain Scale 7 12/11/24 14:43 12/11/24 Last MAR Pain Assessment 12/11/24 14:43 Review of Systems ROS Status of ROS 10 or more systems reviewed and unremark able except as noted in history and below PFSH PFSH Social History Little interest or pleasure in doing things: not at all Feeling down, depressed, or hopeless: not at all Exam Narrative Exam Narrative: Nurses notes and vital signs reviewed and patient is not hypoxic. General: Well-appearing and in no apparent distress. Skin: Warm, dry, no pallor noted. No rash. Head: Normocephalic, atraumatic. Neck: Supple, non-tender. Eye: Pupils are equal, round and EOMI. No scleral icterus. Ears, Nose, Mouth, and Throat: TM are clear, no nasal mucosal hypertrophy. Oral mucosa is moist, no posterior oropharynx erythema, uvula is mid-line Cardiovascular: Regular Rate and Rhythm without murmur, gallop or rub. Respiratory: No accessory muscle use or respiratory distress. Lungs are clear to auscultation, no wheezing, rales or rhonchi Chest Wall: no tenderness Back: No midline thoracic or lumbar vertebral tenderness. No CVA tenderness Musculoskeletal: normal ROM, no calf or popliteal tenderness, no lower extremity edema/swelling GI: Abdomen is soft, non-distended. Normal bowel sounds. No masses appreciated. No tenderness to palpation. No rebound, guarding, or rigidity noted. Neurological: A&O x1 No cranial nerve dysfunction observed. No truncal ataxia. Moves all extremities. Sensation intact. Psychiatric: Cooperative and interactive. Normal mood and affect. Constitutional Vital Signs, click to edit/add: Last Vital Signs Temp 98.7 F 12/11/24 16:03 Pulse 95 H 12/11/24 16:36 Resp 20 12/11/24 16:36 BP 115/55 12/11/24 16:36 Pulse Ox 94 L 12/11/24 16:36 O2 Del Method Room Air 12/11/24 16:36 Course Vital Signs Vital signs: Vital Signs Temperature 99.5 F 12/11/24 13:50 Pulse Rate 125 H 12/11/24 13:50 Respiratory Rate 24 H 12/11/24 13:50 Blood Pressure 136/87 12/11/24 13:50 Pulse Oximetry 93 L 12/11/24 13:50 Oxygen Delivery Method Room Air 12/11/24 13:50 Temperature 98.7 F 12/11/24 16:03 Pulse Rate 95 H 12/11/24 16:36 Respiratory Rate 20 12/11/24 16:36 Blood Pressure 115/55 12/11/24 16:36 Pulse Oximetry 94 L 12/11/24 16:36 Oxygen Delivery Method Room Air 12/11/24 16:36 Medical Decision Making MDM Narrative Medical decision making narrative: The patient upon arrival has a EKG showing sinus tachycardia with a heart rate of 118 The patient was provided with a liter and a half normal saline after which he was feeling much better and his heart rate responded with a heart rate right now at the bedside of 95 The patient chest x-ray showed no acute pathology and the influenza test came positive for flu A The patient CBC and chemistry otherwise showed no acute pathology the urine did show some ketones which mostly secondary to hydration There was no acidosis detected in the blood workup CT abdomen pelvis obtained because the patient x-ray of the chest shows possible air under the diaphragm that was found to be an artifact on the CT of the abdomen that came up normal The patient does not have any chest x-ray the pathology as well Right now the patient was started on Tamiflu mention to Mucinex supportive care the mother at the bedside was instructed that in case of any new symptoms including decreased p.o. intake or any continuous fever or any new symptoms the patient to be come back to the ER I did explain to the mother that in case of any new symptoms or any concern from her side about his energy or decreased p.o. intake the patient to come back to the ER to be admitted Patient was feeling much better and he was requesting to go home He was able to ambulate with no difficulty his heart rate responded after the liter and half fluid he is to continue hydration p.o. at home Tylenol for fever control The patient is to follow up with primary care physician in next 2-3 days or to return to the emergency department should any of the signs or symptoms worsen or new symptoms develop. The patient agrees with the following Diagnosis and Treatment plan and the patient will be discharged home. Lab Data Labs: Lab Results 12/11/24 12/11/24 12/11/24 Range/Units 14:05 14:08 16:05 WBC 4.2 (4.0-11.0) 10^3/uL RBC 4.32 L (4.70-6.10) 10^6/uL Hgb 14.1 (14.0-18.0) g/dL Hct 40.4 L (42.0-54.0) % MCV 93.5 (80.0-94.0) fL MCH 32.6 (25.9-34.0) pg MCHC 34.9 (29.9-35.2) g/dL RDW 13.2 (11.0-15.0) % Plt Count 184 (150-450) 10^3/uL MPV 9.5 (9.5-13.5) fL Neut % (Auto) 65.3 (43.0-75.0) % Lymph % (Auto) 18.4 L (20.5-60.0) % [place] % (Auto) 14.9 H (1.7-12.0) % Eos % (Auto) 0.2 L (0.9-7.0) % Baso % (Auto) 0.5 (0.2-2.0) % Neut # (Auto) 2.8 (1.4-6.5) 10^3/uL Lymph # (Auto) 0.8 L (1.2-3.8) 10^3/uL [place] # (Auto) 0.6 (0.3-0.8) 10^3/uL Eos # (Auto) 0.0 (0.0-0.7) 10^3/uL Baso # (Auto) 0.0 (0.0-0.1) 10^3/uL Abs Immat Gran (auto) 0.03 (0.00-0.03) 10^3/uL Imm/Tot Granulo (auto) 0.7 H (0.0-0.5) % PT 11.0 (9.0-11.6) sec INR 1.04 Sodium 140 (136-145) mmol/L Potassium 3.7 (3.5-5.1) mmol/L Chloride 102 (98-107) mmol/L Carbon Dioxide 23.5 (21.0-32.0) mmol/L Anion Gap 18.2 BUN 8.0 (7.0-18.0) mg/dL Creatinine 0.85 (0.70-1.30) mg/dL Est GFR ( Amer) >60 (>=60 mL/min/1.73m^2) Est GFR (Non-Af Amer) >60 (>=60 mL/min/1.73m^2) BUN/Creatinine Ratio 9.4 Glucose 132 H (74-106) mg/dL Lactate 1.4 (0.4-2.0) mmol/L Calcium 9.6 (8.5-10.1) mg/dL Magnesium 1.9 (1.8-2.4) mg/dL Total Bilirubin 0.4 (0.2-1.0) mg/dL AST 21 (15-37) U/L ALT 32 (16-63) U/L Alkaline Phosphatase 55 (46-116) U/L Troponin I High Sens 6.0 (4.0-76.1) pg/mL Total Protein 7.4 (6.4-8.2) g/dL Albumin 3.8 (3.4-5.0) g/dL Globulin 3.6 g/dL Albumin/Globulin Ratio 1.1 Urine Color Lt. yellow (YELLOW) Urine Clarity Clear (CLEAR) Urine pH 6.0 (5.0-9.0) Ur Specific [place] 1.010 (1.005-1.025) Urine Protein Negative (NEG/TRACE) mg/dL Urine Glucose (UA) >=1000 A (NEGATIVE) mg/dL Urine Ketones 40 A (NEGATIVE) mg/dL Urine Occult Blood Negative (NEGATIVE) Urine Nitrite Negative (NEGATIVE) Urine Bilirubin Negative (NEGATIVE) Urine Urobilinogen 0.2 (0.2-1.0) EU/dL Ur Leukocyte Esterase Negative (NEGATIVE) Influenza Type A Ag Positive A Influenza Type B Ag Negative RSV Antigen Not detected (NOT DETECTE) SARS-CoV-2 Ag (CV2AG) Negative (NEGATIVE) Discharge Plan Discharge Chief Complaint: Upper Respiratory Infection Clinical Impression: Flu Patient Disposition: Home, Self-Care Time of Disposition Decision: 16:45 Condition: Good Prescriptions / Home Meds: New oseltamivir [Tamiflu] 75 mg capsule 75 mg PO BID 5 Days Qty: 10 0RF guaifenesin [Mucinex] 600 mg tablet extended release 12hr 600 mg PO BID PRN (Reason: cough) Qty: 10 0RF No Action primidone 50 mg tablet 50 mg PO BID tizanidine 4 mg tablet 4 mg PO DAILY lisinopril 20 mg tablet 20 mg PO DAILY clonazepam 1 mg tablet 1 mg PO DAILY verapamil 180 mg tablet extended release 180 mg PO DAILY tramadol 50 mg tablet 50 mg PO Q12H trazodone 100 mg tablet 100 mg PO DAILY glimepiride 4 mg tablet 4 mg PO BID divalproex 500 mg tablet extended release 24 hr 500 mg PO BID pravastatin 20 mg tablet 20 mg PO DAILY duloxetine 60 mg capsule,delayed release(DR/EC) 60 mg PO DAILY Fanapt 6 mg tablet 6 mg PO BID Jardiance 25 mg tablet 25 mg PO DAILY Trulicity 1.5 mg/0.5 mL pen injector 1.5 mg SUBCUT QWEEK Print Language: Malawian Instructions: Dehydration (ED), Influenza (DC) Referrals: Narayan Garcia DO [Primary Care Provider] - 1 week
== END 2024-12-11 16:58 | disposition home or self-care (01) ==
PROVIDERS: Emergency Provider Emergency Medicine; PCP Internal Medicine
DX: J10.1 Influenza due to other identified influenza virus with other respiratory manifestations (principal); Z87.01 Personal history of pneumonia (recurrent); R00.0 Tachycardia, unspecified
CPT/HCPCS: 36415; 71045; 74176; 80053; 81003; 83605; 83735; 84484; 85025; 85610; 87420; 87804; 87811; 93005; 99285

== ENCOUNTER 2025-01-15 12:11 | Outpatient (OUT) | payer MEDICARE, MEDICAID, SELFPAY ==
--- OUTSIDE RECORDS SUMMARY | 2025-01-15 12:34 | XMS_ITS | CCD ---
Author Organization [facility] Care Team Providers Care Sole Buffer Name Role Phone PHYSICIAN, DEFAULT Unavailable Unavailable PHYSICIAN, DEFAULT Unavailable Unavailable NARAYAN GAGNON Unavailable Unavailable PHYSICIAN, DEFAULT Unavailable Unavailable PHYSICIAN, DEFAULT Unavailable Unavailable NARAYAN GAGNON Unavailable Unavailable Narayan Gagnon Primary Care Provider [phone] Narayan Gagnon DO Primary Care Provider [phone] Narayan Gagnon DO Primary Care Provider VAHID MOODY Referring Unavailable AARON MARCELO S Consulting Unavailable NARAYAN GAGNON Primary Care Unavailable ZOLTAN MONIQUE Attending Unavailable ZOLTAN MONIQUE Admitting Unavailable Narayan Gagnon DO Primary Care Provider NARAYAN GAGNON Primary Care Physician Kiera, Sue Veliz Attending Unavailable Ballard, Malina T Admitting Unavailable Ballard, Malina Schneider Attending Unavailable Ballard, Malina Schneider Referring Unavailable SALAM, Sylvester Admitting Unavailable SALAM, [...] Gagnon Unavailable LULU, DR KUMAR Admitting Unavailable PHILIP, MINA Consulting Unavailable LULU, DR KUMAR Attending Unavailable [...] BALL, DR BUSCH Primary Care Unavailable Ball DO, Narayan Primary Care Provider Chelsi, DO Busch Primary Care Provider [phone] Shun, SENIOR BUSINESS ANALYST-DRYER FEEDER-C Ju Stock Attending Provider Narayan Gagnon Primary Care Unavailable Hoffmann, Ju Stock Admitting Unavailable Hoffmann, Ju Stock Attending Unavailable Chelsi, Narayan Primary Care Unavailable Hoffmann, Ju Stock Admitting Unavailable Hoffmann, Ju Stock Attending Unavailable BALLARD, MALINA Schneider Attending Unavailable BALLARD, MALINA Schneider Referring Unavailable HOFFMANN, JU Attending Unavailable HOFFMANN, JU Attending Unavailable COCO HURTADO Attending Unavailable Ball, DO Busch Primary Care Provider Shun, SENIOR BUSINESS ANALYST-DRYER FEEDER-C Ju Stock Attending Provider Narayan Gagnon MD Primary Care Provider NARAYAN GAGNON Primary Care Unavailable BALL, NARAYAN Referring Unavailable BALL, NARAYAN Referring Unavailable BALL, NARAYAN Primary Care Unavailable CONSOLOKASHMIR W Admitting Unavailable CONSOLO, KASHMIR Lombardi Attending Unavailable BALL, NARAYAN Primary Care Unavailable Allergies Allergy Classification Reported Allergen(s) Allergy Type Date of Onset Reaction(s) Facility (20 sources) Morphine; Translations: [morphine] Drug Allergy 4 Hives, Vomiting (disorder), Difficulty breathing (finding), Shortness of breath, Other [place] (16 sources) Penicillins Propensity to adverse reactions to drug 4 Hives [place] (20 sources) Vancomycin; Translations: [vancomycin] Drug Allergy 3 Anaphylaxis, Difficulty breathing (finding), Unknown [place] (20 sources) Penicillin; Translations: [penicillin] Drug Allergy Urticaria (disorder) [facility] (1 source) Morphine Drug Allergy [facility] (1 source) Vancomycin Drug Allergy [facility] (18 sources) Penicillin G Benzathine & Proc Drug allergy Unknown [employer] Other (18 sources) Morphine Sulfate (Concentrate) *ANALGESICS - OPIOI Propensity to adverse reactions Unknown [employer] Other (6 sources) Allergies Reconciled Propensity to adverse reactions Unknown [employer] Other (6 sources) patient allergy list reviewed by nurse or physicia Propensity to adverse reactions 4 Comment:Done [employer] Other (3 sources) Penicillins Propensity to adverse reactions to drug 4 [facility] (1 source) Morphine Drug Allergy 4 [facility] Repository (1 source) Penicillins Drug allergy (disorder) 4 [facility] (1 source) Vancomycin Drug Allergy 4 [facility] (3 sources) Penicillins Drug Allergy 1 [facility] Medications Current Medications Medication Drug Class(es) [...] Status: Ordered Start: 04-29-2018 End: 06-26-2024 take 1 tablet by mouth once daily Aspirin 81 mg tablet,delayed release (DR/EC) Active 81 MG PO daily 90 June 26, 2024 7:47am take 1 tablet by abdoulaye th once daily in the morning aspirin 81 MG tablet Take 81 mg by mouth every morning. 0 Active azithromycin 250 mg oral tablet (6 sources) Macrolide Antimicrobial Start: 09-17-2024 End: 12-02-2024 Azithromycin 250 mg tablet Active 250 MG PO .COMPLEX 6 December 02, 2024 12:00am 2 tabs on first day followed by 1 tab on days 2-5 Blood Glucose Monitoring Suppl (ReliOn True Met Air Gluc Meter) w/Device kit (3 sources) Start: 04-06-2024 Blood Glucose Monitoring Suppl (ReliOn True Met Air Gluc Meter) w/Device kit Take 1 puff by mouth if needed 04/06/2024 Active Blood-Glucose Meter (True Metrix Air Glucose Meter) misc (7 sources) Start: 04-06-2024 Blood-Glucose Meter (True Metrix Air Glucose Meter) misc Active 0 .Route 1 April 05, 2024 11:00pm to test BS daily Start: 04-06-2024 Blood-Glucose Meter (True Metrix Air [...] Psychosis Start Date: 08/10/20 Status: [facility] 4.5 MG/0.5ML solution pen-injector (3 sources) inject [...] Sodium-Glucose Cotransporter 2 Inhibitor Start: End: take 1 tablet by mouth once daily Empagliflozin 25 mg tablet Active 25 MG PO Daily June 26, 2024 7:47am Fiber (3 sources) Start: take 1 tablet by mouth every other day Fiber Lax 625 mg oral tablet 625 mg = 1 tab(s), Oral, Every other day, Refills(s) 0, Constipation Start Date: 05/09/20 Status: Ordered fluticasone propionate 0.05 mg/actuat metered dose nasal spray (20 sources) Corticosteroid Start: Fluticasone Propionate 50 mcg/actuation spray,suspension Active 1 SPRAY INTRANASAL Daily January 22, 2024 12:00am take 1 spray(s) nasal route once daily Fluticasone Propionate 50 MCG/ACT 1 spray in each nostril Nasally Once a day Active take 1 spray(s) nasal route once daily Fluticasone Propionate 50 MCG/ACT 1 spray in each nostril Nasally Once a day Active glimepiride 4 mg oral tablet (20 sources) Sulfonylurea Start: 10-01-2024 take 2 tablets by mouth once daily Glimepiride 4 mg tablet Active 8 MG PO Daily 180 October 01, 2024 12:25pm Start: 09-18-2024 End: 10-01-2024 take 1 tablet by mouth once daily Glimepiride 2 mg tablet Discontinued 2 MG PO Daily 90 September 17, 2024 11:00pm October 01, 2024 12:25pm Start: 01-23-2024 End: 09-17-2024 Glimepiride 2 mg tablet Discontinued 2 MG PO Daily 90 June 26, 2024 7:47am September 17, 2024 10:20am Take with 4mg dose, 30 minutes prior to bkfst Start: 01-23-2024 End: 09-17-2024 Glimepiride Discontinued 2 M G PO Daily 90 June 26, 2024 8:47am September 17, 2024 11:20am Take with 4mg dose, 30 minutes prior to bkfst Start: 01-22-2024 End: 10-01-2024 take 1 tablet by mouth once daily Glimepiride 4 mg tablet Discontinued 4 MG PO Daily 90 June 01, 2024 4:39pm October 01, 2024 12:25pm Start: 04-29-2018 End: 01-22-2024 take 1 tablet by mouth once daily in the morning Glimepiride 2 mg Tablet Discontinued 3 MG PO Every morning April 28, 2018 11:00pm January 22, 2024 11:40am (1 1/2 tab daily) Start: 04-29-2018 End: 01-22-2024 take 1 tablet [...] Active hyoscyamine sulfate 0.125 mg sublingual tablet (17 sources) Start: 01-22-2024 take 1 tablet under the tongue once daily as needed Hyoscyamine Sulfate (Levsin/Sl) 0.125 mg tablet, sublingual Active 0.125 MG SUBLINGUAL Daily as needed January 22, 2024 12:00am Start: 11-13-2023 hyoscyamine (L evsin) 0.125 MG [...] (20 sources) Atypical Antipsychotic Start: 01-22-2024 take 1 tablet by mouth twice daily Iloperidone 6 mg tablet Active 6 MG PO Twice daily January 22, 2024 12:00am Start: 11-01-2022 Fanapt Refills (s) 0 Start Date: 11/01/22 Status: Ordered lurasidone hydrochloride 20 mg oral tablet (20 sources) Atypical Antipsychotic Start: 01-22-2024 take 1 tablet by mouth once daily Lurasidone 20 mg tablet Active 20 MG PO Daily January 22, 2024 12:00am Start: 05-05-2018 End: 01-22-2024 take 1 tablet by mouth once daily Lurasidone (Latuda) 40 mg Tablet Discontinued 80 MG PO Daily with supper 60 May 04, 2018 11:00pm January 22, 2024 11:43am Start: 04-29-2018 End: 01-22-2024 take 1 tablet by mouth once daily in the evening Lurasidone (Latuda) 60 mg Tablet Discontinued 60 MG PO Every evening April 28, 2018 11:00pm January 22, 2024 11:43am End: 11-23-2021 take 1 tablet by mouth [...] take 1 tablet by mouth twice daily at mealtime Metformin 1,000 mg Tablet Discontinued 1000 MG PO Twice daily April 28, 2018 11:00pm January 22, 2024 11:43am with meals take 1 tablet by abdoulaye [...] APPLIC TOPICAL Twice daily January 22, 2024 12:00am Start: 03-04-2023 MetroCream 0.7 5 % 1 [...] day(s), # 90 cap(s), Refills(s) 0, Pharmacy: [id number], 171, cm, 11/01/22 12:17:00 EST, Height/Length Dosing, 78.9, kg, 11/01/22 12:17:00 EST, Weight Dosing Start Date: 11/01/22 Stop Date: 01/30/23 Status: Ordered polyethylene glycol 3350 299649 mg / potassium chloride 1480 mg / sodium bicarbonate 5720 mg / sodium chloride 53334 mg powder for oral solution (1 source) Osmotic Laxative Start: 2 NuLYTELY Zimmer oral powder for reconstitution See Instructions, 1 EA, Refill(s) 0, Prior to colonoscopy., [id number], 171, cm, 11/01/22 12:17:00 EST, Height/Length Dosing, 78.9, kg, 11/01/22 12:17:00 EST, Weight Dosing Start Date: 11/01/22 Status: Ordered pravastatin sodium 20 mg oral tablet (20 sources) HMG-CoA Reductase Inhibitor Start: 8 End: 4 take 1 tablet by mouth once daily in the evening Pravastatin 20 mg tablet Active 20 MG PO Every evening August 04, 2024 9:37pm primidone 50 mg oral tablet (13 sources) Anti-epileptic Agent Start: 4 primidone (Mysoline) 50 MG tablet Indications: Tremor Take 2 tablets PO with supper 180 tablet 1 07/20/2024 Active Start: 06-25-2024 End: 10-30-2024 take 1 tablet by mouth in the [...] mg / trimethoprim 160 mg oral tablet (8 sources) Dihydrofolate Reductase Inhibitor Antibacterial, Sulfonamide Antimicrobial Start: 03-12-2024 take 1 tablet by mouth every twelve hours Sulfamethoxazole-Trimethoprim (Bactrim Ds) 800-160 mg tablet Active 1 TAB PO Every 12 hours 13 09March 11, 2024 11:00pm tiZANidine 4 mg oral capsule (20 sources) Central alpha-2 Adrenergic Agonist Start: 05-16-2022 End: 05-16-2022 tiZANidine (ZANAFLEX) tablet 4 mg Start: 04-29-2018 End: 08-04-2024 take 1 capsule by mouth once daily in the evening Tizanidine 4 mg capsule Active 4 MG PO Every evening August 04, 2024 9:36pm take 1 capsule by mo uth three times daily as needed for muscle spasms tiZANidine (Zanaflex) 4 MG capsule Take 4 mg by mouth 3 (three) times a day as needed for muscle spasms Active take 1 tablet by abdoulaye th every [...] 05/18/2022 Active Start: 05-05-2018 End: 01-22-2024 take 1 tablet by mouth once daily at bedtime Divalproex 250 mg Tablet Extended Release 24 Hr Discontinued 250 MG PO Daily at bedtime May 04, 2018 11:00pm January 22, 2024 11:43am Start: 05-05-2018 End: 01-22-2024 take 1 tablet by mouth twice daily Divalproex 500 mg Tablet,Delayed Release (Dr/Ec) Discontinued 500 MG PO Twice daily 60 May 04, 2018 11:00pm January 22, 2024 11:43am Start: 04-29-2018 End: 01-22-2024 take 1 tablet by mouth three times daily Divalproex 250 mg Tablet Extended Release 24 Hr Discontinued 250 MG PO Three times daily April 28, 2018 11:00pm January 22, 2024 11:44am take 2 tablets by mo uth twice [...] Jan, Active Start: 04-29-2018 End: 08-04-2024 take 1 capsule by mouth once daily Verapamil 180 mg capsule,ext rel. pellets 24 hr Active 180 MG PO daily August 04, 2024 9:38pm Completed/Discontinued Medications Medication Drug Class(es) Dates Sig [...] Discontinued 625 MG PO Twice daily April 28, 2018 11:00pm January 22, 2024 11:44am take 1 tablet by mouth every oth er day polycarbophil (FIBERCON) 625 MG tablet Take 1 tablet by mouth every other day Alternate with Colace Active Calcium Polycarb ophil (FIBER-LAX PO) Fiber-Lax Active take 2 tablets by [facility] every eight hours Fiber-Lax 625 MG 2 tablets as needed Ora lly Three times a day for 30 days Active cholecalciferol 0.025 mg oral capsule (8 sources) Vitamin D Start: 04-29-2018 End: 01-22-2024 take 1 capsule by mouth once daily Cholecalciferol (Vitamin D3) (Vitamin D3) 1,000 unit Capsule Discontinued 1000 UNIT PO daily April 28, 2018 11:00pm January 22, 2024 11:44am citalopram 40 mg oral tablet (9 sources) Serotonin Reuptake Inhibitor Start: 04-29-2018 End: 11-16-2020 take 1 tablet by mouth once daily in the evening Citalopram 40 mg Tablet Discontinued 40 MG PO Every evening April 28, 2018 11:00pm May 05, 2018 8:27am 50 ml clindamycin 18 mg/ml injection (2 [...] (20 sources) Start: 01-22-2024 End: 09-17-2024 take 1 capsule by mouth once daily Docusate Sodium 100 mg capsule Discontinued 100 MG PO Daily August 04, 2024 9:39pm September 17, 2024 10:22am Start: 05-09-2020 take 1 capsule by [facility] twice daily as needed for constipation Colace 100 mg Cap 100 mg = 1 cap(s), Oral, BID, PRN for constipation, # 20 cap(s), Refills(s) 0 Start Date: 05/09/20 Status: Ordered take 1 capsule by [facility] every other day docusate sodium (COLACE) 100 MG capsule Take 1 capsule by mouth every other day Alternate with Fibercon 625 mg Active 0.5 ml dulaglutide 3 mg/ml auto-injector (20 sources) GLP-1 Receptor Agonist Start: 12-02-2024 End: 12-02-2024 Dulaglutide (Trulicity) 1.5 mg/0.5 mL pen injector Discontinued 1.5 MG SUBCUT every week 01 22December 02, 2024 2:00pm December 02, 2024 2:01pm Start: 06-12-2024 End: 09-17-2024 Dulaglutide (Trulicity) 0.75 mg/0.5 mL pen injector Discontinued 1.5 MG SUBCUT every week June 12, 2024 1:21pm September 17, 2024 10:21am Start: 02-04-2024 End: 06-12-2024 inject 0.75 mg by subcutaneous injection every week Dulaglutide (Trulicity) 0.75 mg/0.5 mL pen injector Discontinued 0 .ROUTE .COMPLEX February 17, 2024 12:38pm June 12, 2024 1:21pm INJECT 0.75 MG SUBCUTANEOUSLY ONCE A WEEK Start: 01-15-2023 End: 02-04-2024 Dulaglutide (Trulicity) 1.5 mg/0.5 mL pen injector Discontinued 1.5 MG SUBCUT every week January 22, 2024 12:00am February 04, 2024 7:34am Start: 01-08-2022 inject 3 mg by subcu taneous injection every week Trulicity Pen 3 mg/0.5 mL subcutaneous solution 3 mg, SubCutaneous, qWeek, Blood glucose Start Date: 01/08/22 Status: Ordered Start: 04-29-2018 End: 01-22-2024 Dulaglutide (Trulicity) 0.75 mg/0.5 mL Pen Injector Discontinued 1 DOSE SUBCUT .QTUES April 28, 2018 11:00pm January 22, 2024 11:43am Dulaglutide (OLGA LICITY) 1.5 MG/0.5ML SOPN Inject 3 mg into the skin once a week Weekly on Saturday 0 Active gadoteridol (PROHANCE) injection 15 mL (1 source) Start: 11-17-2020 End: 11-17-2020 gadoteridol (PROHANCE) injection 15 mL lisinopril 20 mg oral tablet (20 sources) Angiotensin Converting Enzyme Inhibitor Start: 01-08-2022 End: 08-04-2024 take 1 tablet by mouth once daily Lisinopril 20 mg tablet Discontinued 20 MG PO Daily January 22, 2024 12:00am August 04, 2024 9:39pm Start: 04-29-2018 End: 01-22-2024 take 1 tablet by mouth once daily Lisinopril 5 mg Tablet Discontinued 5 MG PO daily April 28, 2018 11:00pm January 22, 2024 11:41am take 4 tablets by mo [facility] once daily in the morning lisinopril (PRINIVIL;ZESTRIL) 5 MG tablet Take 20 mg by mouth every morning 0 Active LORazepam 1 mg oral tablet (1 source) Benzodiazepine Start: 05-16-2022 End: 05-16-2022 LORazepam (ATIVAN) tablet 1 mg mirtazapine 15 mg oral tablet (8 sources) Start: 05-05-2018 End: 01-22-2024 take 1 tablet by mouth once daily at bedtime Mirtazapine 15 mg Tablet Discontinued 15 MG PO Daily at bedtime 30 May 04, 2018 11:00pm January 22, 2024 11:43am MULTIPLE VITAMIN PO (1 source) End: 11-16-2020 MULTIPLE VITAMIN PO Take by mouth every morning. 0 11/16/2020 Discontinued (Therapy completed) OLANZapine 5 mg oral tablet (1 source) Atypical Antipsychotic Start: 05-17-2022 End: 05-17-2022 OLANZapine (ZYPREXA) tablet 10 mg traMADol hydrochloride 50 mg oral tablet (20 sources) Opioid Agonist Start: 03-12-2024 End: 09-25-2024 take 1 tablet by mouth twice daily as needed for pain Tramadol 50 mg tablet Discontinued 50 MG PO Twice daily as needed for pain 168 84 September 17, 2024 9:18pm September 25, 2024 11:37am 09/08 Start: 04-29-2018 End: 01-22-2024 take 1 tablet by mouth twice daily Tramadol 50 mg Tablet Discontinued 50 MG PO Twice daily April 28, 2018 11:00pm January 22, 2024 11:43am take 1 tablet by abdoulaye every twenty-four hours traMADol HCl 50 MG 1 tablet as needed Orally Once a day Active traZODone hydrochloride 100 mg oral tablet (20 sources) Serotonin Reuptake Inhibitor Start: 05-16-2022 traZODone (DESYREL) tablet 100 mg Start: 01-08-2022 End: 06-30-2024 take 1 tablet by mouth once daily at bedtime Trazodone 100 mg tablet Discontinued 100 MG PO Daily at bedtime January 22, 2024 12:00am June 30, 2024 12:09pm vitamin e d-alpha 400 unt oral capsule [...] Problem Date Documented Da te Episodic/Chronic Acute bronchitis (10 sources) Acute bronchitis; Translations: [Acute bronchitis, unspecified] Onset: 03-22-2016 12-02-2024 Episodic Acute cerebrovascular disease (1 source) Other [...] [Unspecified internal derangement of left knee] Onset: 01-27-2020 07-02-2023 Chronic Malaise and fatigue (20 sources) Fatigue; Translations: [Chronic fatigue, unspecified] Onset: 02-08-2023 Chronic Malaise and fatigue (19 sources) Weakness; Translations: [Malaise and fatigue] Onset: 01-26-2014 Episodic Miscellaneous mental health disorders (20 sources) Mental disorder; Translations: [Primary insomnia] Onset: 07-02-2023 05-09-2020 Chronic Mood disorders (20 sources) Depressive disorder; Translations: [Depression with suicidal ideation] Onset: 11-20-2018 05-17-2022 Chronic Comment on above: Problem List clean-u p per request of Phys. 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] Onset: 07-02-2023 07-02-2023 Chronic Other ear and sense organ disorders (2 sources) Impacted cerumen; Translations: [Impacted cerumen, right ear] 12-02-2024 Episodic Other ear and sense organ disorders (2 sources) Impacted cerumen, right ear; Translations: [Impacted cerumen] 12-02-2024 Episodic Other eye disorders (1 source) 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] 01-22-2024 Chronic Other gastrointestinal disorders (7 sources) Mixed irritable bowel syndrome; Translations: [Irritable [...] unspecified; Translations: [Diarrhea] Episodic Other gastrointestinal disorders (8 sources) Slow transit constipation; Translations: [Slow transit [...] Other hereditary and degenerative nervous system conditions (14 sources) Essential tremor; Translations: [Essential tremor] 01-22-2024 Chronic Other hereditary and degenerative nervous system conditions (8 sources) Impaired cognition; Translations: [Mild cognitive impairment, [...] conditions (not mental disorders or infectious disease) (11 sources) Encounter for screening for malignant neoplasm [...] Onset: 2018 01-22-2024 Chronic Residual codes; unclassified (13 sources) Obstructive sleep apnea (adult) (pediatric); Translations: [...] pain] Onset: 01-26-2014 Resolved: 07-02-2023 05-09-2020 Episodic Genitourinary symptoms and ill-defined conditions (12 [...] sources) High risk drug monitoring status; Translations: [shelter (current) use of opiate analgesic] Onset: 02-09-2019 [...] Facil ity Basophils Auto (Bld) [#/Vol] on 11-24-2024 Basophils (Bld) [#/Vol] Automated basophil count 0.0-0.1 [facility] Basophils/100 WBC Auto (Bld) on 11-24-2024 Basophils/100 WBC (Bld) Automated basophil % 0.2-2.0 [facility] Eosinophils/100 WBC Auto (Bl d)on 11-24-2024 Eosinophils/100 WBC (Bld) Automated eosinophil % 0.9-7.0 [facility] Erythrocyte distribution wid th Auto (RBC) [Ratio]on 11-24-2024 Erythrocyte distribution width (RBC) [Ratio] Erythrocyte distribution width [Ratio] by Automated count 11.0-15.0 [facility] Estimated glomerular filtrat ion rate (GFR) non- Americanon 11-24-2024 GFR/1.73 sq M.predicted among non-blacks MDRD (S/P/Bld) [Vol rate/Area] Estimated glomerular filtration rate (GFR) non- >=60 mL/min/1.73m 2 [facility] Hematocrit Auto (Bld) [Volum e fraction]on 11-24-2024 Hematocrit (Bld) [Volume fraction] Hematocrit [Volume Fraction] of Blood by Automated count Low 42.0-54.0 [facility] Hemoglobin [Mass/volume] in Bloodon 11-24-2024 Hemoglobin (Bld) [Mass/Vol] Hemoglobin [Mass/volume] in Blood Low 14.0-18.0 [facility] Laboratory - Chemistry and C hemistry - challengeon 11-24-2024 Bilirubin Ql (U) Negative NEGATIVE [facility] Glucose (U) [Mass/Vol] mg/dL Abnormal NEGATIVE [facility] Ketones Ql (U) TRACE mg/dL Abnormal NEGATIVE [facility] pH (U) 5.5 [pH] 5.0-9.0 [facility] Specific gravity (U) [Rel density] <=1.005 Abnormal 1.005-1.025 [facility] Urobilinogen Qn (U) 0.2 {Steve'U}/dL 0.2-1.0 [facility] Calcium [Mass/Vol] 8.9 mg/dL 8.5-10.1 [facility] Chloride [Moles/Vol] 99 mmol/L 98-107 [facility] CO2 [Moles/Vol] 22.8 mmol/L 21.0-32.0 [facility] Creatinine [Mass/Vol] 0.94 mg/dL 0.70-1.30 [facility] GFR/1.73 sq M.predicted MDRD (S/P/Bld) [Vol rate/Area] mL/min/{1.73_m2} >=60 mL/min/1.73m 2 [facility] Glucose [Mass/Vol] 236 mg/dL High 74-106 [facility] Potassium [Moles/Vol] 4.0 mmol/L 3.5-5.1 [facility] Sodium [Moles/Vol] 135 mmol/L Low 136-145 [facility] Urea nitrogen [Mass/Vol] 7.0 mg/dL 7.0-18.0 [facility] Urea nitrogen/Creatinine [Mass ratio] 7.4 mg/mg [facility] Laboratory - Hematology and Cell countson 11-24-2024 Immature granulocytes/100 WBC (Bld) 0.8 % High 0.0-0.5 [facility] Laboratory - Microbiology an d Antimicrobial susceptibilityon 11-24-2024 SARS-CoV-2 (COVID-19) RNA SHANEKA+probe Ql (Unsp spec) Negative NEGATIVE [facility] Comment on above: This test has not be en FDA cleared or approved, but has beenauthorized by the FDA under an Emergency Use Authorization(EUA) for use by authorized laboratories certified underIA that meet the requirements to perform moderate or highcomplexity testing. This test has been authorized only forthe detection of proteins from SARS-CoV-2, not for any otherviruses or pathogens. The emergency use of this test isauthorized for the duration of the declaration thatcircumstances exist justifying the authorization ofemergency use of in vitro diagnostic tests for detectionand/or diagnosis of Covid-19 under section 564(b)(1) of theAct, 21 U.S.C. 360bbb-3(b)(1), unless the declaration isterminated or authorization is revoked sooner. Laboratory - Specimen inform ationon 11-24-2024 Appearance (U) CLEAR CLEAR [facility] Color (U) LT. YELLOW YELLOW [facility] Laboratory - Urinalysison Leukocyte esterase Test strip Ql (U) Negative NEGATIVE [facility] Nitrite Ql (U) Negative NEGATIVE [facility] Protein Ql (U) Negative NEG/TRACE [facility] [facility] Leukocytes [#/volume] correc jan for nucleated erythrocytes in Blood by Automated counon 11-24-2024 WBC corrected for nucl RBC Auto (Bld) [#/Vol] Leukocytes [#/volume] corrected for nucleated erythrocytes in Blood by Automated coun 4.0-11.0 [facility] Lymphocytes Auto (Bld) [#/Vo l]on 11-24-2024 Lymphocytes (Bld) [#/Vol] Lymphocytes [#/volume] in Blood by Automated count Low 1.2-3.8 [facility] Lymphocytes/100 WBC Auto (Bl d)on 11-24-2024 Lymphocytes/100 WBC (Bld) Lymphocytes/100 leukocytes in Blood by Automated count Low 20.5-60.0 [facility] MCH Auto (RBC) [Entitic mass ]on 11-24-2024 MCH (RBC) [Entitic mass] MCH [Entitic mass] by Automated count 25.9-34.0 [facility] MCHC Auto (RBC) [Mass/Vol]on 11-24-2024 MCHC (RBC) [Mass/Vol] MCHC [Mass/volume] by Automated count 29.9-35.2 [facility] MCV Auto (RBC) [Entitic vol] on 11-24-2024 MCV (RBC) [Entitic vol] MCV [Entitic volume] by Automated count 80.0-94.0 [facility] Monocytes Auto (Bld) [#/Vol] on 11-24-2024 Monocytes (Bld) [#/Vol] Automated blood monocyte count High 0.3-0.8 [facility] Monocytes/100 WBC Auto (Bld) on 11-24-2024 Monocytes/100 WBC (Bld) Automated monocyte % High 1.7-12.0 [facility] Neutrophils Auto (Bld) [#/Vo l]on 11-24-2024 Neutrophils (Bld) [#/Vol] Neutrophils [#/volume] in Blood by Automated count 1.4-6.5 [facility] Neutrophils/100 WBC Auto (Bl d)on 11-24-2024 Neutrophils/100 WBC (Bld) Automated neutrophil % 43.0-75.0 [facility] No Panel Informationon 11-24 Urine Microscopic Review NO [facility] Urine Occult Blood Negative NEGATIVE [facility] Eosinophils # (Auto) 0.1 10 3/uL 0.0-0.7 [facility] Immature Granulocyte # (Auto) 0.05 10 3/uL High 0.00-0.03 [facility] Bedside Influenza Type A Antigen Negative [facility] Comment on above: Negative for Flu A p rotein antigen. Infection due to Flu Acannot be ruled out. Flu A antigen in the sample may bebelow the detection limit of the test. Bedside Influenza Type B Antigen Negative [facility] Comment on above: Negative for Flu B p rotein antigen. Infection due to Flu Bcannot be ruled out. Flu B antigen in the sample may bebelow the detection limit of the test. Platelet mean volume Auto (B ld) [Entitic vol]on 11-24-2024 Platelet mean volume (Bld) [Entitic vol] Platelet mean volume [Entitic volume] in Blood by Automated count 9.5-13.5 [facility] Platelets Auto (Bld) [#/Vol] on 11-24-2024 Platelets (Bld) [#/Vol] Platelets [#/volume] in Blood by Automated count Low 150-450 [facility] RBC Auto (Bld) [#/Vol]on RBC (Bld) [#/Vol] Erythrocytes [#/volume] in Blood by Automated count Low 4.70-6.10 [facility] Serum or plasma anion gap de terminationon 11-24-2024 Anion gap [Moles/Vol] Serum or plasma anion gap determination [facility] Cholesterol in LDL Calc [Mas s/Vol]on 09-25-2024 Cholesterol in LDL [Mass/Vol] Cholesterol in LDL [Mass/volume] in Serum or Plasma by calculation [facility] Comment on above: <100 mg/dl [id number] 0-129 mg/dl NEAR OR ABOVE [id number] mg/dl BORDERLINE [id number] mg/dl HIGH>190 mg/dl VERY HIGH Cholesterol in VLDL Calc [Ma ss/Vol]on 09-25-2024 Cholesterol in VLDL [Mass/Vol] Cholesterol in VLDL [Mass/volume] in Serum or Plasma by calculation [facility] Glucose mean value [Mass/vol ume] in Blood Estimated from glycated hemoglobinon 09-25-2024 Average glucose Estimated from glycated hemoglobin (Bld) [Mass/Vol] Glucose mean value [Mass/volume] in Blood Estimated from glycated hemoglobin [facility] Laboratory - Chemistry and C hemistry - challengeon 09-25-2024 Cholesterol [Mass/Vol] 170 mg/dL <=200 [facility] Cholesterol in HDL [Mass/Vol] 45 mg/dL 40-60 [facility] Comment on above: > or =60 mg/dl - LOW CARDIOVASCULAR RISK<40 mg/dl - HIGH CARDIOVASCULAR RISK Triglyceride [Mass/Vol] 188 mg/dL High <=150 [facility] Laboratory - Hematology and Cell countson 09-25-2024 HbA1c (Bld) [Mass fraction] 9.0 % High 4.5-6.2 [facility] Comment on above: ADA RECOMMENDED LIMI T 4.0 - 6.0ADA THERAPEUTIC TARGET < 7.0ACTION SUGGESTED> 7.0 No Panel Informationon 09-25 Prostate Specific Antigen Screen 0.33 ng/mL <=4.00 [facility] Serum or plasma total choles terol/high density lipoprotein (HDL) cholesterol mass yuniel 09-25-2024 Cholesterol.total/C holesterol in HDL [Mass ratio] Serum or plasma total cholesterol/high density lipoprotein (HDL) cholesterol mass rat [facility] Comment on above: 3.3 - 4.4 LOW RISK4. 4 - 7.1 AVERAGE RISK7.1 - 11.0 MODERATE RISK>11.0 HIGH RISK Basophils Auto (Bld) [#/Vol] on 09-02-2024 Basophils (Bld) [#/Vol] 0.1 10 3/uL 0.0-0.1 [facility] Basophils/100 WBC Auto (Bld) on 09-02-2024 Basophils/100 WBC (Bld) 1.0 % 0.2-2.0 [facility] Cholesterol in LDL Calc [Mas s/Vol]on 09-02-2024 Cholesterol in LDL [Mass/Vol] 90.4 mg/dL [facility] Comment on above: <100 mg/dl [id number] 0-129 mg/dl NEAR OR ABOVE [id number] mg/dl BORDERLINE [id number] mg/dl HIGH>190 mg/dl VERY HIGH Cholesterol in VLDL Calc [Ma ss/Vol]on 09-02-2024 Cholesterol in VLDL [Mass/Vol] 22.6 mg/dL [facility] Eosinophils/100 WBC Auto (Bl d)on 09-02-2024 Eosinophils/100 WBC (Bld) 1.5 % 0.9-7.0 [facility] Erythrocyte distribution wid th Auto (RBC) [Ratio]on 09-02-2024 Erythrocyte distribution width (RBC) [Ratio] 12.6 % 11.0-15.0 [facility] Globulin Calc (S) [Mass/Vol] on 09-02-2024 Globulin (S) [Mass/Vol] 4.0 g/dL [facility] Hematocrit Auto (Bld) [Volum e fraction]on 09-02-2024 Hematocrit (Bld) [Volume fraction] 45.9 % 42.0-54.0 [facility] Hemoglobin [Mass/volume] in Bloodon 09-02-2024 Hemoglobin (Bld) [Mass/Vol] 15.7 g/dL 14.0-18.0 [facility] Laboratory - Chemistry and C hemistry - challengeon 09-02-2024 Albumin [Mass/Vol] 3.8 g/dL 3.4-5.0 [facility] ALP [Catalytic activity/Vol] 65 U/L 46-116 [facility] ALT [Catalytic activity/Vol] 14 U/L Low 16-63 [facility] AST [Catalytic activity/Vol] 7 U/L Low 15-37 [facility] Bilirubin [Mass/Vol] 0.5 mg/dL 0.2-1.0 [facility] Bilirubin.direct [Mass/Vol] 0.1 mg/dL 0.0-0.2 [facility] Cholesterol [Mass/Vol] 169 mg/dL <=200 [facility] Cholesterol in HDL [Mass/Vol] 56 mg/dL 40-60 [facility] Comment on above: > or =60 mg/dl - LOW CARDIOVASCULAR RISK<40 mg/dl - HIGH CARDIOVASCULAR RISK Glucose [Mass/Vol] 154 mg/dL High 74-106 [facility] Protein [Mass/Vol] 7.8 g/dL 6.4-8.2 [facility] Triglyceride [Mass/Vol] 113 mg/dL <=150 [facility] Laboratory - Hematology and Cell countson 09-02-2024 Immature granulocytes/100 WBC (Bld) 0.7 % High 0.0-0.5 [facility] Leukocytes [#/volume] correc jan for nucleated erythrocytes in Blood by Automated counon 09-02-2024 WBC corrected for nucl RBC Auto (Bld) [#/Vol] 5.9 10 3/uL 4.0-11.0 [facility] Lymphocytes Auto (Bld) [#/Vo l]on 09-02-2024 Lymphocytes (Bld) [#/Vol] 2.0 10 3/uL 1.2-3.8 [facility] Lymphocytes/100 WBC Auto (Bl d)on 09-02-2024 Lymphocytes/100 WBC (Bld) 33.4 % 20.5-60.0 [facility] MCH Auto (RBC) [Entitic mass ]on 09-02-2024 MCH (RBC) [Entitic mass] 32.4 pg 25.9-34.0 [facility] MCHC Auto (RBC) [Mass/Vol]on 09-02-2024 MCHC (RBC) [Mass/Vol] 34.2 g/dL 29.9-35.2 [facility] MCV Auto (RBC) [Entitic vol] on 09-02-2024 MCV (RBC) [Entitic vol] 94.8 fL High 80.0-94.0 [facility] Monocytes Auto (Bld) [#/Vol] on 09-02-2024 Monocytes (Bld) [#/Vol] 0.6 10 3/uL 0.3-0.8 [facility] Monocytes/100 WBC Auto (Bld) on 09-02-2024 Monocytes/100 WBC (Bld) 10.2 % 1.7-12.0 [facility] Neutrophils Auto (Bld) [#/Vo l]on 09-02-2024 Neutrophils (Bld) [#/Vol] 3.1 10 3/uL 1.4-6.5 [facility] Neutrophils/100 WBC Auto (Bl d)on 09-02-2024 Neutrophils/100 WBC (Bld) 53.2 % 43.0-75.0 [facility] No Panel Informationon 09-02 Eosinophils # (Auto) 0.1 10 3/uL 0.0-0.7 [facility] Immature Granulocyte # (Auto) 0.04 10 3/uL High 0.00-0.03 [facility] Valproic Acid (Depakene) Level 58.6 ug/mL 50.0-100.0 [facility] Platelet mean volume Auto (B ld) [Entitic vol]on 09-02-2024 Platelet mean volume (Bld) [Entitic vol] 9.6 fL 9.5-13.5 [facility] Platelets Auto (Bld) [#/Vol] on 09-02-2024 Platelets (Bld) [#/Vol] 214 10 3/uL 150-450 [facility] RBC Auto (Bld) [#/Vol]on RBC (Bld) [#/Vol] 4.84 10 6/uL 4.70-6.10 [facility] Serum or plasma albumin/glob ulin mass ratioon 09-02-2024 Albumin/Globulin [Mass ratio] 0.9 {ratio} [facility] Serum or plasma total choles terol/high density lipoprotein (HDL) cholesterol mass yuniel 09-02-2024 Cholesterol.total/C holesterol in HDL [Mass ratio] 3.0 {ratio} [facility] Comment on above: 3.3 - 4.4 LOW RISK4. 4 - 7.1 AVERAGE RISK7.1 - 11.0 MODERATE RISK>11.[address] angio neckon 07-02-2024 CT angio neck [facility] Main [address] [address] [address] Scan Report Signed Patient: Hari Thornton MR#: [id number] 034 : 1975 Acct:[id number] Age/Sex: 49 / M ADM Date: 07/02/24 Loc: CT Room: Type: REG CLI Attending Dr: Ju BLANC Copies to: JAYASHREE Porter Ordering Provider: JAYASHREE Porter Date of Service: 07/02/24 CT/CT angio neck: I63.81 ([id number]) CT/CT angio head: I63.81 CTA Head and [...] Balta Tracy M.D.07/02/2024 2:46 PM Dictation Location: [place] [address] Transcribed By: [facility] 07/02/24 1446 Dictated By: Balta Tracy DO 07/02/24 1439 Signed By: 07/02/24 1446 Normal [facility] Cholesterol in LDL Calc [Mas s/Vol]on 06-11-2024 Cholesterol in LDL [Mass/Vol] 76.6 mg/dL [facility] Comment on above: <100 mg/dl [id number] 0-129 mg/dl NEAR OR ABOVE FBSOPVM829-155 mg/dl BORDERLINE [id number] mg/dl HIGH>190 mg/dl VERY HIGH Cholesterol in VLDL Calc [Ma ss/Vol]on 06-11-2024 Cholesterol in VLDL [Mass/Vol] 23.4 mg/dL [facility] Globulin Calc (S) [Mass/Vol] on 06-11-2024 Globulin (S) [Mass/Vol] 3.8 g/dL [facility] Glucose mean value [Mass/vol ume] in Blood Estimated from glycated hemoglobinon 06-11-2024 Average glucose Estimated from glycated hemoglobin (Bld) [Mass/Vol] 192 mg/dL [facility] Laboratory - Chemistry and C hemistry - challengeon 06-11-2024 Albumin [Mass/Vol] 3.8 g/dL 3.4-5.0 [facility] ALP [Catalytic activity/Vol] 66 U/L 46-116 [facility] ALT [Catalytic activity/Vol] 19 U/L 16-63 [facility] AST [Catalytic activity/Vol] 8 U/L Low 15-37 [facility] Bilirubin [Mass/Vol] 0.4 mg/dL 0.2-1.0 [facility] Bilirubin.direct [Mass/Vol] 0.1 mg/dL 0.0-0.2 [facility] Cholesterol [Mass/Vol] 151 mg/dL <=200 [facility] Cholesterol in HDL [Mass/Vol] 51 mg/dL 40-60 [facility] Comment on above: > or =60 mg/dl - LOW CARDIOVASCULAR RISK<40 mg/dl - HIGH CARDIOVASCULAR RISK Cobalamin (Vitamin B12) [Mass/Vol] 723.0 pg/mL 193.0-986.0 [facility] Protein [Mass/Vol] 7.6 g/dL 6.4-8.2 [facility] Triglyceride [Mass/Vol] 117 mg/dL <=150 [facility] TSH Qn 2.371 m[IU]/L 0.358-3.740 [facility] Laboratory - Hematology and Cell countson 06-11-2024 HbA1c (Bld) [Mass fraction] 8.3 % High 4.5-6.2 [facility] Comment on above: ADA RECOMMENDED LIMI T 4.0 - 6.0ADA THERAPEUTIC TARGET < 7.0ACTION SUGGESTED> 7.0 Serum or plasma albumin/glob ulin mass ratioon 06-11-2024 Albumin/Globulin [Mass ratio] 1.0 {ratio} [facility] Serum or plasma total choles terol/high density lipoprotein (HDL) cholesterol mass yuniel 06-11-2024 Cholesterol.total/C holesterol in HDL [Mass ratio] 3.0 {ratio} [facility] Comment on above: 3.3 - 4.4 LOW RISK4. 4 - 7.1 AVERAGE RISK7.1 - 11.0 MODERATE RISK>11.0 HIGH RISK MR head/brain wo/w conon MR head/brain wo/w con [facility] Main [place] [address] [place] [address] MRI Report Signed Patient: Hari Thornton MR#: [id number] 034 : 1975 Acct:[id number] Age/Sex: 49 / M ADM Date: 05/15/24 Loc: MR Room: Type: [facility] Attending Dr: Ju BLANC Copies to: [...] Mina Jeffery M.D.05/15/2024 11:00 AM Dictation Location: [place] [address] Transcribed By: [facility] 05/15/24 1100 Dictated By: Mina Jeffery II, MD 05/15/24 1052 Signed By: 05/15/24 1100 Normal [facility] Glucose, Whole Bloodon 05-07 Glucose [Mass/Vol] 173 mg/dL High 74 - 100 mg/dL [facility] Interpretation and review of laboratory results Abnormal [facility] Glucose [Mass/Vol] 173 mg/dL High 74-100 [facility] Basic Metabolic Panelon Anion gap [Moles/Vol] 12 mmol/L 9 - 17 mmol/L [facility] [employer] Calcium [Mass/Vol] 10.6 mg/dL High 8.6 - 10. 4 mg/dL [facility] Chloride [Moles/Vol] 103 mmol/L 98 - 107 mmol/L [facility] CO2 [Moles/Vol] 24 mmol/L 20 - 31 mmol/L [facility] Creatinine [Mass/Vol] 0.7 mg/dL 0.7 - 1.2 mg/dL [facility] [employer] [facility]ester Rate - PINF [facility] Comment on above: These results are [...] 160 mg/dL High 70 - 99 mg/dL [facility] Interpretation and review of laboratory results Abnormal [facility] Potassium [Moles/Vol] 4.8 mmol/L 3.7 - 5.3 mmol/L [facility] Sodium [Moles/Vol] 139 mmol/L 135 - 144 mmol/L [facility] Urea nitrogen [Mass/Vol] 17 mg/dL 6 - 20 mg/dL [facility] Urea nitrogen/Creatinine [Mass ratio] 24 mg/mg High 9 - 20 [facility] Basic Metabolic Profon 05-01 Anion gap [Moles/Vol] 12 mmol/L Normal 9-17 [facility] Comment on above: Performed By: #### B MP, CDP #### [facility] [address] [place], [place] [id number] Lead Former: Ryan Landin MD BUN/CRE Ratio 24 High 9-20 [facility] Comment on above: Performed By: #### B MP, CDP #### [facility] [address] [place], [place] [id number] Lead Former: Ryan Landin MD Calcium [Mass/Vol] 10.6 mg/dL High 8.6-10.4 [facility] Comment on above: Performed By: #### B MP, CDP #### [facility] [address] [place], [place] [id number] Lead Former: Ryan Landin MD Chloride [Moles/Vol] 103 mmol/L Normal 98-107 [facility] Comment on above: Performed By: #### B MP, CDP #### [facility] [address] [place], [place] [id number] Lead Former: Ryan Landin MD CO2 [Moles/Vol] 24 mmol/L Normal 20-31 [facility] Comment on above: Performed By: #### B MP, CDP #### [facility] [address] [place], [place] [id number] Lead Former: Ryan Landin MD Creatinine [Mass/Vol] 0.7 mg/dL Normal 0.7-1.2 [facility] Comment on above: Performed By: #### B MP, CDP #### [facility] [address] [place] [address] Lead Former: Ryan Landin MD GFR/1.73 sq M.predicted among non-blacks MDRD (S/P/Bld) [Vol rate/Area] mL/min/{1.73_m2} Normal >60 [facility] Comment on above: Result Comment: These [...] Performed By: #### B LIZ, CDP #### [facility] [address] [place] [address] [place] [address] Lead Former: Ryan Landin MD Glucose [Mass/Vol] 160 mg/dL High 70-99 [facility] Comment on above: Performed By: #### B LIZ, CDP #### [facility] [address] [place] [address] [place] [address] Lead Former: Ryan Landin MD Potassium [Moles/Vol] 4.8 mmol/L Normal 3.7-5.3 [facility] Comment on above: Performed By: #### B LIZ, CDP #### [facility] [address] [place] [address] [place] [address] Lead Former: Ryan Landin MD Sodium [Moles/Vol] 139 mmol/L Normal 135-144 [facility] Comment on above: Performed By: #### B LIZ, CDP #### [facility] [address] [place] [address] Lead Former: Ryan Landin MD Urea nitrogen [Mass/Vol] 17 mg/dL Normal 6-20 [facility] Comment on above: Performed By: #### B LIZ, CDP #### [facility] [address] [place] [address] [place] [address] Lead Former: Ryan Landin MD CBC with Auto Differentialon 05-01-2024 Basophils (Bld) [#/Vol] 0.07 10*3/uL [facility] Basophils/100 WBC (Bld) 1 % 0 - 2 % [facility] Eosinophils (Bld) [#/Vol] 0.08 10*3/uL [facility] Eosinophils/100 WBC (Bld) 1 % 1 - 4 % [facility] Erythrocyte distribution width (RBC) [Ratio] 13.2 % 11.8 - 14.4 % [facility] Hematocrit (Bld) [Volume fraction] 45.6 % 40.7 - 50.3 % [facility] Hemoglobin (Bld) [Mass/Vol] 15.5 g/dL 13.0 - 17.0 g/dL [facility] Immature granulocytes (Bld) [#/Vol] 0.07 10*3/uL [facility] Immature granulocytes/100 WBC (Bld) 1 % High 0 [facility] Interpretation and review of laboratory results Abnormal [facility] Lymphocytes/100 WBC (Bld) 25 % 24 - 43 % [facility] Lymphocytes/100 WBC (Bld) 1.70 % [facility] MCH (RBC) [Entitic mass] 31.6 pg 25.2 - 33.5 pg [facility] MCHC (RBC) [Mass/Vol] 34.0 g/dL 28.4 - 34.8 g/dL [facility] MCV (RBC) [Entitic vol] 92.9 fL 82.6 - 102.9 fL [facility] Monocytes/100 WBC (Bld) 9 % 3 - 12 % [facility] Monocytes/100 WBC (Bld) 0.60 % [facility] Neutrophils/100 WBC (Bld) 63 % 36 - 65 % [facility] Nucleated RBC/100 WBC (Bld) [Ratio] 0.0 % 0.0 per 100 WBC [facility] Platelet mean volume (Bld) [Entitic vol] 9.5 fL 8.1 - 13.5 fL [facility] Platelets (Bld) [#/Vol] 255 10*3/uL [facility] RBC (Bld) [#/Vol] 4.91 10*6/uL 4.21 - 5.7 7 m/uL [facility] Segmented neutrophils/100 WBC (Bld) 4.18 % [facility] WBC other (Bld) [#/Vol] 6.7 [facility] CBC with Diffon 05-01-2024 Abs. Basophil 0.07 k/uL Normal 0.00-0.20 [facility] Comment on above: Performed By: #### B LIZ, CDP #### [address] [place] [address] Lead Former: Ryan Landin MD Abs.Imm.Granulocyte 0.07 k/uL Normal 0.00-0.30 [facility] Comment on above: Performed By: #### B LIZ, CDP #### [address] [place], [place] [id number] Lead Former: Ryan Landin MD Abs.Neutrophil (Seg) 4.18 k/uL Normal 1.50-8.10 [facility] Comment on above: Performed By: #### B LIZ, CDP #### [address] [place], [place] [id number] Lead Former: Ryan Landin MD Basophils/100 WBC (Bld) 1 % Normal 0-2 [facility] Comment on above: Performed By: #### B LIZ, CDP #### [address] [place], [place] [id number] Lead Former: Ryan Landin MD Eosinophils (Bld) [#/Vol] 0.08 10*3/uL Normal 0.00-0.44 [facility] Comment on above: Performed By: #### B LIZ, CDP #### [address] [place] [address] Lead Former: Ryan Landin MD Eosinophils/100 WBC (Bld) 1 % Normal 1-4 [facility] Comment on above: Performed By: #### B MP, CDP #### [facility] [address] [place], [place] [phone] Lead Former: Ryan Landin MD Erythrocyte distribution width (RBC) [Ratio] 13.2 % Normal 11.8-14.4 [facility] Comment on above: Performed By: #### B MP, CDP #### [facility] [address] [place], [id number] Lead Former: Ryan Landin MD Hematocrit (Bld) [Volume fraction] 45.6 % Normal 40.7-50.3 [facility] Comment on above: Performed By: #### B MP, CDP #### [address] [place], [facility]83 Lead Former: Ryan Landin MD Hemoglobin (Bld) [Mass/Vol] 15.5 g/dL Normal 13.0-17.0 [facility] Comment on above: Performed By: #### B LIZ, CDP #### [address] [place], [place] [id number] Lead Former: Ryan Landin MD Immature granulocytes/100 WBC (Bld) 1 % High 0 [facility] Comment on above: Performed By: #### B MP, CDP #### [facility] [address] [place] [address] [place], [place] [id number] Lead Former: Ryan Landin MD Lymphocytes (Bld) [#/Vol] 1.70 10*3/uL Normal 1.10-3.70 [facility] Comment on above: Performed By: #### B MP, CDP #### [facility] [address] [place] [address] [place], [place] [id number] Lead Former: Ryan Landin MD Lymphocytes/100 WBC (Bld) 25 % Normal 24-43 [facility] Comment on above: Performed By: #### B MP, CDP #### [facility] [address] [place] [address] Lead Former: Ryan Landin MD MCH (RBC) [Entitic mass] 31.6 pg Normal 25.2-33.5 [facility] Comment on above: Performed By: #### B MP, CDP #### [address] [place] [address] Lead Former: Ryan Landin MD MCHC (RBC) [Mass/Vol] 34.0 g/dL Normal 28.4-34.8 [facility] Comment on above: Performed By: #### B MP, CDP #### [address] [place] [address] Lead Former: Ryan Landin MD MCV (RBC) [Entitic vol] 92.9 fL Normal 82.6-102.9 [facility] Comment on above: Performed By: #### B MP, CDP #### [address] [place], [place] [id number] Lead Former: Ryan Landin MD Monocytes (Bld) [#/Vol] 0.60 10*3/uL Normal 0.10-1.20 [facility] Comment on above: Performed By: #### B MP, CDP #### [address] [place], [facility] Lead Former: Ryan Landin MD Monocytes/100 WBC (Bld) 9 % Normal 3-12 [facility] Comment on above: Performed By: #### B MP, CDP #### [facility] [address] [place] [address] [place] [address] Lead Former: Ryan Landin MD Neutrophil (Seg) 63 % Normal 36-65 [facility] Comment on above: Performed By: #### B MP, CDP #### [facility] [address] [place] [address] Dr. [place], [id number] Lead Former: Ryan Landin MD NRBC Automated 0.0 per 100 WBC Normal 0.0 [facility] Comment on above: Performed By: #### B LIZ, CDP #### [facility] [address] [place] [address] Lead Former: Ryan Landin MD Platelet mean volume (Bld) [Entitic vol] 9.5 fL Normal 8.1-13.5 [facility] Comment on above: Performed By: #### B LIZ, CDP #### [facility] [address] [place] [address] Lead Former: Ryan Landin MD Platelets (Bld) [#/Vol] 255 10*3/uL Normal 138-453 [facility] Comment on above: Performed By: #### B LIZ, CDP #### [facility] [address] [place] [address] Lead Former: Ryan Landin MD RBC (Bld) [#/Vol] 4.91 10*6/uL Normal 4.21-5.77 [facility] Comment on above: Performed By: #### B LIZ, CDP #### [facility] [address] [place], [place] [id number] Lead Former: Ryan Landin MD WBC (Bld) [#/Vol] 6.7 10*3/uL Normal 3.5-11.3 [facility] Comment on above: Performed By: #### B LIZ, CDP #### [facility] [address] [place] [address] Lead Former: Ryan Landin MD EKG 12 LeadOrdered By: Zheng Anderson on 05-01-2024 Atrial Rate 75 BPM [facility] Work Phone: P [place] 70 degrees [facility] Work Phone: P-R Interval 158 ms [facility] Work Phone: Q-T Interval 390 ms [employer] Work Phone: QRS Duration 86 ms [employer] Work Phone: QTc Calculation (Bazett) 435 ms [employer] Work Phone: R [place] 83 degrees [employer] Work Phone: T [place] 58 degrees [employer] Work Phone: Ventricular Rate 75 BPM [employer] Work Phone: [employer] Work Phone: EKG 12 Leadon 05-01-2024 Normal sinus rhythm with sinus arrhythmia Normal ECG When compared with ECG of 16-MAY-2022 17:35, No significant change was found Confirmed by COCO ANDERSON ([id number]) on 05/01/2024 12:05:02 PM [facility] Coco Anderson MD - 05/01/2024 Normal sinus rhythm with sinus arrhythmia Normal ECG When compared with ECG of 16-MAY-2022 17:35, No significant change was found Confirmed by COCO ANDERSON ([id number]) on 05/01/2024 12:05:02 PM [employer] US KIDNEYS BLADDERon 04-20-2 023 US KIDNEYS BLADDER EXAMINATION: US KIDNEYS [...] by: ERIKA HUMPHREY Date: 2023-03-14 10:06 Normal [facility] US KIDNEYS BLADDER [employer] Other US SINGLE QUAD RT UPPERon US [...] ERIKA HUMPHREY Date: 2023-03-14 10:04 Normal [facility] A1C with Estimated Average G luon 02-08-2023 A1C with Estimated Average Glu [employer] Other BILIRUBIN CONJUGATED (DIRECT )on 02-08-2023 BILI, CONJUGATED 0.1 mg/dL Normal 0.0-0.2 [facility] Comment on above: Performed By: #### P HOS, MG, DBIL, LIPID, VALP, CMP #### [facility] [address] [address] [address] Pam Granger CBC AUTO DIFFon 02-08-2023 BASO # 0.0 103/ul Normal 0.0-0.1 [facility] Comment on above: Performed By: #### C BC #### [facility] [address] [address] [address] Pam Granger Basophils/100 WBC (Bld) 0.9 % Normal 0.2-2.0 [facility] Comment on above: Performed By: #### C BC #### [facility] [address] [address] [address] Pam Granger EO # 0.1 103/ul Normal 0.0-0.7 [facility] Comment on above: Performed By: #### C BC #### [facility] [address] [place] [address] Dr. Pam Granger Eosinophils/100 WBC (Bld) 2.1 % Normal 0.9-7.0 [facility] Comment on above: Performed By: #### C BC #### [facility] [address] [place] [address] Dr. Pam Granger Erythrocyte distribution width (RBC) [Ratio] 13.5 % Normal 11.0-15.0 [facility] Comment on above: Performed By: #### C BC #### [facility] [address] [place] [address] Dr. Pam Granger Hematocrit (Bld) [Volume fraction] 43.8 % Normal 42.0-54.0 [facility] Comment on above: Performed By: #### C BC #### [facility] [address] [place] [address] Dr. Pam Granger Hemoglobin (Bld) [Mass/Vol] 15.0 g/dL Normal 14.0-18.0 [facility] Comment on above: Performed By: #### C BC #### [facility] [address] [place] [address] Dr. Pam Granger IG # 0.04 10e3/ul Critically high 0.00-0.03 [facility] Comment on above: Performed By: #### C BC #### [facility] [address] [place] [address] Dr. Pam Granger IG % 0.9 % Critically high 0.0-0.5 [facility] Comment on above: Performed By: #### C BC #### [facility] [address] [place] [address] Dr. Pam Granger LYMPH # 1.5 103/ul Normal 1.2-3.8 [facility] Comment on above: Performed By: #### C BC #### [facility] [address] [place] [address] Dr. Pam Gragner Lymphocytes/100 WBC (Bld) 34.9 % Normal 20.5-60.0 [facility] Comment on above: Performed By: #### C BC #### [facility] [address] [place] [address] Dr. Pam Granger MANUAL DIFF REQ NO Normal [facility] Comment on above: Performed By: #### C BC #### [facility] [address] [place] [address] Dr. Pam Granger MCH (RBC) [Entitic mass] 31.2 pg Normal 25.9-34.0 [facility] Comment on above: Performed By: #### C BC #### [facility] [address] [place] [address] Dr. Pam Granger MCHC (RBC) [Mass/Vol] 34.2 g/dL Normal 29.9-35.2 [facility] Comment on above: Performed By: #### C BC #### [facility] [address] [place] [address] Dr. Pam Granger MCV (RBC) [Entitic vol] 91.1 fL Normal 80.0-94.0 [facility] Comment on above: Performed By: #### C BC #### [facility] [address] [place] [address] Dr. Pam Granger MONO # 0.6 103/ul Normal 0.3-0.8 [facility] Comment on above: Performed By: #### C BC #### [facility] [address] [place] [address] Dr. Pam Granger Monocytes/100 WBC (Bld) 12.6 % Critically high 1.7-12.0 [facility] Comment on above: Performed By: #### C BC #### [facility] [address] [place] [address] Dr. Pam Granger NEUT # 2.1 103/ul Normal 1.4-6.5 [facility] Comment on above: Performed By: #### C BC #### [facility] [address] [place] [address] Dr. Pam Granger Neutrophils/100 WBC (Bld) 48.6 % Normal 43.0-75.0 [facility] Comment on above: Performed By: #### C BC #### [facility] [address] [place] [address] Dr. Pam Granger Platelet mean volume (Bld) [Entitic vol] 9.0 fL Critically low 9.5-13.5 [facility] Comment on above: Performed By: #### C BC #### [facility] [address] [place] [address] Dr. Pam Granger PLT 238 103/ul Normal 150-450 [facility] Comment on above: Performed By: #### C BC #### [facility] [address] [place] [address] Dr. Pam Granger RBC 4.81 106/ul Normal 4.70-6.10 [facility] Comment on above: Performed By: #### C BC #### [facility] [address] [place] [address] Dr. Pam Granger WBC 4.4 103/ul Normal 4.0-11.0 [facility] Comment on above: Performed By: #### C BC #### [facility] [address] [place] [address] Dr. Pam Granger DEPAKENE/ VALPROIC ACIDon DEPAKENE 54.5 ug/ml Normal 50.0-100.0 [facility] Comment on above: Performed By: #### A 1C #### [facility] [address] [place] [address] Dr. Pam Granger GLYCOHEMOGLOBIN A1Con 2022 ADA RECOMMENDATION SEE BELOW Normal [facility] Comment on above: Result Comment: ADA RECOMMENDED LIMIT 4.0 - 6.0 ADA THERAPEUTIC TARGET < 7.0 ACTION SUGGESTED > 7.0 Performed By: #### A 1C #### [facility] [address] [place] [address] Dr. Pam Granger Glucose [Mass/Vol] 174 mg/dL Normal [facility] Comment on above: Performed By: #### A 1C #### [facility] [address] [address] [address] Pam Granger HbA1c (Bld) [Mass fraction] 7.7 % Critically high 4.5-6.2 [facility] Comment on above: Performed By: #### A 1C #### [facility] [address] [address] [address] Pam Granger LIPID PROFILEon 02-08-2023 CHOL-HDL RATIO NORM SEE BELOW Normal [facility] Comment on above: Result Comment: 3.3 - 4.4 LOW RISK 4.4 - 7.1 AVERAGE RISK 7.1 - 11.0 MODERATE RISK >11.0 HIGH RISK Performed By: #### P HOS, MG, DBIL, LIPID, VALP, CMP #### [facility] [address] [place] [address] Dr. Pam Granger Cholesterol [Mass/Vol] 163 mg/dL Normal <=200 [facility] Comment on above: Performed By: #### P HOS, MG, DBIL, LIPID, VALP, CMP #### [facility] [address] [place] [address] Dr. Pam Granger Cholesterol in HDL [Mass/Vol] 50 mg/dL Normal 40-60 [facility] Comment on above: Performed By: #### P HOS, MG, DBIL, LIPID, VALP, CMP #### [facility] [address] [place] [address] Dr. Pam Granger Cholesterol in LDL [Mass/Vol] 83.6 mg/dL Normal [facility] Comment on above: Performed By: #### P HOS, MG, DBIL, LIPID, VALP, CMP #### [facility] [address] [place] [address] Dr. Pam Granger Cholesterol.total/C holesterol in HDL [Mass ratio] 3.3 {ratio} Normal [facility] Comment on above: Performed By: #### P HOS, MG, DBIL, LIPID, VALP, CMP #### [facility] [address] [place] [address] Dr. Pam Granger HDL NORMAL > or = 60 mg/dl - LOW CARDIOVASCULAR RISK <40 mg/dl - HIGH CARDIOVASCULAR RISK Normal [facility] Comment on above: Performed By: #### P HOS, MG, DBIL, LIPID, VALP, CMP #### [facility] [address] [place] [address] Dr. Pam Granger LDL CALC NORMAL SEE BELOW Normal [facility] Comment on above: Result Comment: <100 mg/dl OPTIMAL 100 - 129 mg/dl NEAR OR ABOVE OPTIMAL 130 - 159 mg/dl BORDERLINE HIGH 160 - 189 mg/dl HIGH >190 mg/dl VERY HIGH Performed By: #### P HOS, MG, DBIL, LIPID, VALP, CMP #### [facility] [address] [address] [address] Pam Granger Triglyceride [Mass/Vol] 147 mg/dL Normal <=150 [facility] Comment on above: Performed By: #### P HOS, MG, DBIL, LIPID, VALP, CMP #### [facility] [address] [place] [address] Dr. Pam Granger VLDL CALC 29.4 mg/dL Normal [facility] Comment on above: Performed By: #### P HOS, MG, DBIL, LIPID, VALP, CMP #### [facility] [address] [place] [address] Dr. Pam Granger MAGNESIUMon 02-08-2023 Magnesium [Mass/Vol] 2.0 mg/dL Normal 1.8-2.4 [facility] Comment on above: Performed By: #### A 1C #### [facility] [address] [place] [address] Dr. Pam Granger PHOSPHORUSon 02-08-2023 Phosphate [Mass/Vol] 3.4 mg/dL Normal 2.6-4.7 [facility] Comment on above: Performed By: #### P HOS, MG, DBIL, LIPID, VALP, CMP #### [facility] [address] [place] [address] Dr. Pam Granger PROF 14(COMP METB)on 023 Albumin [Mass/Vol] 4.0 g/dL Normal 3.4-5.0 [facility] Comment on above: Performed By: #### A 1C #### [facility] [address] [address] [address] Pam Granger Albumin/Globulin [Mass ratio] 1.2 {ratio} Normal [facility] Comment on above: Performed By: #### A 1C #### [facility] [address] [address] [address] Pam Granger ALP [Catalytic activity/Vol] 69 U/L Normal 46-116 [facility] Comment on above: Performed By: #### A 1C #### [facility] [address] [place] [address] Dr. Pam Granger ALT [Catalytic activity/Vol] 17 U/L Normal 16-63 [facility] Comment on above: Performed By: #### A 1C #### [facility] [address] [place] [address] Dr. Pam Granger Anion gap [Moles/Vol] 19.7 mmol/L Normal [facility] Comment on above: Performed By: #### A 1C #### [facility] [address] [place] [address] Dr. Pam Granger AST [Catalytic activity/Vol] 11 U/L Critically low 15-37 [facility] Comment on above: Performed By: #### A 1C #### [facility] [address] [place] [address] Dr. Pam Granger Bilirubin [Mass/Vol] 0.3 mg/dL Normal 0.2-1.0 [facility] Comment on above: Performed By: #### A 1C #### [facility] [address] [place] [address] Dr. Pam Granger Calcium [Mass/Vol] 9.8 mg/dL Normal 8.5-10.1 [facility] Comment on above: Performed By: #### A 1C #### [facility] [address] [place] [address] Dr. Pam Granger Chloride [Moles/Vol] 106 mmol/L Normal 98-107 [facility] Comment on above: Performed By: #### A 1C #### [facility] [address] [place] [address] Dr. Pam Granger CO2 [Moles/Vol] 24.4 mmol/L Normal 21.0-32.0 [facility] Comment on above: Performed By: #### A 1C #### [facility] [address] [address] [address] Pam Granger Creatinine [Mass/Vol] 0.78 mg/dL Normal 0.70-1.30 [facility] Comment on above: Performed By: #### A 1C #### [facility] [address] [address] [address] Pam Granger EGFR-AF ECUADOREAN >60 Normal >=60 [facility] Comment on above: Performed By: #### A 1C #### [facility] [address] [place] [address] Dr. Pam Granger EGFR-NON AF ECUADOREAN >60 Normal >=60 [facility] Comment on above: Performed By: #### A 1C #### [facility] [address] [place] [address] Dr. Pam Granger Globulin (S) [Mass/Vol] 3.4 g/dL Normal [facility] Comment on above: Performed By: #### A 1C #### [facility] [address] [address] [address] Pam Granger Glucose [Mass/Vol] 162 mg/dL Critically high 74-106 [facility] Comment on above: Performed By: #### A 1C #### [facility] [address] [place] [address] Dr. Pam Granger Potassium [Moles/Vol] 4.1 mmol/L Normal 3.5-5.1 [facility] Comment on above: Performed By: #### A 1C #### [facility] [address] [place] [address] Dr. Pam Granger Protein [Mass/Vol] 7.4 g/dL Normal 6.4-8.2 [facility] Comment on above: Performed By: #### A 1C #### [facility] [address] [place] [address] Dr. Pam Granger Sodium [Moles/Vol] 146 mmol/L Critically high 136-145 [facility] Comment on above: Performed By: #### A 1C #### [facility] [address] [place], [place] [address] Dr. Pam Granger Urea nitrogen [Mass/Vol] 9.0 mg/dL Normal 7.0-18.0 [facility] Comment on above: Performed By: #### A 1C #### [facility] [address] [place], [place] [address] Dr. Pam Granger Urea nitrogen/Creatinine [Mass ratio] 11.5 mg/mg Normal [facility] Comment on above: Performed By: #### A 1C #### [facility] [address] [place], [place] [address] Dr. Pam Granger TSHon 02-08-2023 TSH 3.967 uIU/mL Critically high 0.358-3.740 uIU/mL [employer] Other TSH see note [employer] Other TSH 3.967 uIU/mL Critically high 0.358-3.740 [facility] Comment on above: Performed By: #### A 1C #### [facility] [address] [place], [place] [address] Dr. Pam Granger XR CHEST 2 Von [...] by: MINA PALACIOS Date: 2023-02-08 09:39 Normal [facility] Patient Letter FTon 2022 Patient Letter [facility] January 16, 2023 HARI THORNTON [address] [address] HARI THORNTON 1975 Below is a summary [...] letter prior to your next due date. [facility] [phone] [facility] Reminderson 01-16-2023 Reminders - From: Deonna Russo [...] tubular adenoma and severe diverticulosis (2027). Normal [facility] IntraOperative Documentson 0 01-09-2023 IntraOperative Documents [id number] #[id number]:127 Normal [facility] Coding Summary.on 01-07-2023 Coding Summary. CD:[id number] Gh0bWw+PGhlYWQ+PE1FV KVqE98luXNqmY3KO7yVI Y9WPWFQBDEYEB2QBZ5ev UF2KXlpQ5DswkAo AsbibBDjHZ08CPw2VPU0 uGuyLRwyfR0euULtH3t0 JaLdLS14wR42BJkdDDFb TjW4YmEcqbxwaXRy X4ruMzIvjSIxDha+PHRh YmxlIHdpZHRoPScxMDAl QiTtbXlwRY8vHa3cOIBn LWNvbGxhcHNlOiBj k1zdKKMkNZwyWD4msTmp I6EqeXL2EDPcv4f5Ly54 dHI+VOArNDZ4gRnhONvx w693IxRev7ypDFX3 pRWxWFyyRTG6G30mz1D5 HHTaXKEnKBM7yFT7eJ5w kFsnrxkcK8GrjIBoLiN0 VJF2zIFpwN2xqQsd rcrxfV1tMwl+Z24ODY0X YSFAIZ8IUzo0V2MqOdgx dHI+LI69ICUrTB85yWOn nKHxp0yegMe2JqTx EHRoXKN4uMdxAJnil1Pt WQZvS82iuXXfq3D8ZLRk dDqriOTcZsGmsCP2lY0k HMvzafvhh2xfvenp Fjfyn4pwum83dU32E46u LFuzWCTpORJ6HQZiIXTv yYvivo9lqC9nHt8+IDxj a0ujo0ozfCy5NzRa JVUtqgLndUmiSSW0w1Fo Bs08R9QpdHsks5GdYja6 lg90zBBit3T0xSX3VZik LJGtsZ2gRYfyPzC0 QPUbUtDqjA99nCOiOPaq Bh4kqWbimOuwJZ1bISHi atwpJYYbcD2bEJBxqCMw eKdnVI0tOOUvnzxi x470HjAqJYG7WCOldTLp H7GoxN8wJhEgFRCwEBDa L3XemNMiAIdmO402XMnn DsH3LMEwefBoM0Ni LNAiyIihQjX5l2J2Zk8V u0HfagkeVMB3GFvpBWDk VoHrCdZmViA5F1UgGtg8 MAQfnOvvKE9aQ8Bc HMIybijadkudqEQ6DTCr YZYbzZ98qHOeUTcuYd3o t2W1g118HSFrKFGgrL44 Kx5njNfkAZCdnIMC iI0spbywy7tyevlaBsBx VGEtHPy1OTw1JJCdsYnb RcGdTLN7MkW2MBK2vCAc wW4qjUtgypqytO4o Oyc+F01gcS1cNYG1UDH2 itddZWAwnaRbQW18BA33 W9HxFaclmJNdcHG+PGRp hhVesOojKF0iZcOm b3jvn4KpCSfnX7DlYVQr PGwwIka3LSFhVWX2uUJ5 rB2sVRZvXZvtz9I2hEP6 E3ErljHtgb9dr0eo DRFfXCgbM78goYIjr0K7 AOCsoDW9FMZgxMesHhHy lN78Sxx+OGJfcSegq4Es Apxuf1rzl2dyiGt9 IjMwJSIgdmFsaWduPSJ0 f0PjJs89R05rZFgmIRBg QREcKSMcOOLpiXqdrk1i aK8uEl3+PGNvbCB3 kHS7lS5zOHTaUbC1FVqz R637JgSiyVVoXmzwk7op r4ergGt9DvQpCPBjbaKv bAyvFXR4f4LfBz50 W51gRFxwSGTpHEPjWZCe CSOthXneei2glL8uOi6+ HL8fl2bobi39xO14zEV+ UMUaHZV1uKprVPip OURwdC0dUUkrBjK7ZKMj BiSbdD70fGBvJDftOj6h sUczxVtbNO6oXUZuecnw m730NwRme5qfSNMh xTAiSJwfVJU5T04ze9K7 MFLwGWDyPHW9lVD3yL6k bGlnbjogbGVmdDsgdmVy eIpgOOokCTpnF836 IHRvcDsnPlBhdGllbnQg TyQxAQo1J4BkXrr4FCFk vZenTZ8afNByLRkmHk5d yClpoPeyDG7uCRJr vekfv260NlQrw3ubDQCk vCHnVXhbAYF3B20lf8S5 CRCaACImXTE6sDD2rD7e bGlnbjogbGVmdDsg qzLgmOwqVPigBVnqL641 IHRvcDsnPkJpcnRoIERh iAL2WY87EN24sHJfp5B1 kRW5A0JwLTDcltul fzykxUQ6ULEnRXCcsY15 Vi4ysFfwOt8cYURiNDU4 YEZtxKDlK0OesR1kEhXf RHMdZVRsU0QohVAu AOouZ222ZWreQnW1COSk anTqG1FfIONkxNehAmP6 g7P3Pz5TE1U0XA58OA07 pPNqe1I2qIF0S5Rl KCUknyxqlgmycKT6WQYa JRNsmD72Wk8pyNivBv1e UFQrHRI6BLAbnRGfV4Xl hH6wNmOqXTGoHGHe S0PscWRvIKxfV325HPkh XnP1AODlmzJrV4SjXYWq fCwlCfG6s0J9Sc9WORs8 HD65MR38cRJux5G6 vOL0O0OlCTJtxfcppdim jPQ3IYLzONZpoI67Db7n aUhiLu5mNYPtDMQ5ZPWi tLZgN0BjfX6rPzVx WSYaBELfW5EruIHkUMws W205JSxcJcM1WNCxagUy Q6SfWMAdfEgrTjR1h6I9 Va1IOJBwSQ25BCA4 fRT8DI96JG65J8KlAyjg dGFibGU+PHRhYmxlIHdp ZHRoPScxMDAlJyBzdHls XR0bGe4uEMOwDWSu pTehtVYlWaOcc0pgANOp MQyuEM1ziNziQ4YbtHE7 GNIle1o7Pt05I10mJ4Gm dXA+LTMtwGU8sGU5 wB3dBnFeYjC1FMkdL541 FaIzzWVbAqkgb1xfy8vy vXk2BwC4YSXxvdWzwDnn BRY5x1JqCy46C53y IHdpZHRoPSIxNSUiIHZh jRjhmo1omG4lNv6+PGNv dVI6fKZ3xB5aTmYrXhH3 KOlaT946WlUpuTUk Jdhmy5wxg4pfoZg1PfSq FZFvfoFdlYgvVQH1v3Bk Zs25A4JkbMdue3EnDji0 pg43gXIok1I2gQT8 O0AuOVGazohssCZwgFbj TE3eNTRrjgpvEMKwfC7f DPYkA1c5IxPhHcS2YYak C9SlthN1HILnpSYp MUsoHML9U28zx1Y4BUTb TSLrCPF6aPN8qB5vqBmj bjogbGVmdDsgdmVydGlj JPrlUCccY535IBFp pZihLBTqqS4cMFRwtKMa aVovFW4zUUQfgfjuItyV IE5CMOHNNHkUDIKDUQF5 E5OfRxt2SDKjnCyy BP9ebKFxWVdpJk7riEms xRepXR2hJNSjzxkhKSLy lZ9kDAQfgWEtgExiMU2a VJFrmsvmz400DkCi RGC9OHQuePGbB7DhaG8p YwBuWJObGUQmP9RulHEt EIqaK389QTubGnG4NNHd atKqC6AkRPIhiIrs PlK8s8E1Ki6sVJ0oJT0l RNrqAW20HU42cNOhl0R3 zDJ1E6NgEFDcbjidsnll bPN1MFSkVMXwvJ84 gZLkBWlbHw5ch0C9c727 CZMxYFJckJ35Je9xkJoi VTPynXBWpU0epumez0dj cjogIzAwMDAwMDt0 RPd8AJZzuDnaEkJhGGW7 SvQ6TLF1eUVudD7opBca oxirbG1uRej+NDkgWWVh fyG5S1JrOpr6LYJr yHjgQT7qeERoLUdpHd2e fGhqlXujXF6bXTUpdczb NDAzdM0hEGLolCAatSqw HH1zKEZgmclhb810 LiTlDVU5BGChgADiW9Af dB7cOaWpRFAqJKQiQ1Xi lEZeUVvxN924EKurCoZ9 DOCkrvKsB6OvZQCq hArvPuE8h7F2Xv1YVHkt JF99XO65vZMyn6T1bGE2 Q9ChRDMfknlnmaufkRM9 IESwOZUqnA66uWMc YUxlFo9xs9J4e527SXWw TPNmqT79Ra5mvGlxLHAu xCJAfC3fihfwk9ovuvni MjSqBEMtPAa7CBy4 LUZrxAzwXsRcTGV0JwF5 SSN2fQZpoW1hyCkpwoqg fU4iQai+G8R5wON9hLGl dDwvdGQ+KX91ol56 A2ZjKjebLvn1LGZgNPX6 sFH3rK8sJAZcDDzmc0U8 rHE4D4TislBnof0wj6fu DKQrKYijH73viOXf k2Q7PVDlvYW5QBJltDmn FlWtcS76Jpr+PGNvbGdy l3MfSwasz8exk4nwwNo6 IjMwJSIgdmFsaWdu PON5h3LrZb32C13nZTwt ZHRoPSIzMCUiIHZhbGln ih5bpN3tSy5+PGNvbCB3 uDZ8pV3pIeTeXiW6 QNadN499NpRptTXzLouz h3uax2nifFm1WkBqRIMd qhPghDgbDHK1j6BkNv19 Y1NemQdrj2FfGtq2 ia98kIOyu7N4eRC6K4Cd XKOacltsaIMyjXaiXL6m HVQbsgxjAXDmkY5kVJTg G0a2OgFaEqM0QGfr H4SikfV0QXOxwSBeHZGn sJSGpA3ixeaqb5wrkxpn AdMzAEGwLEu0BZv0YQHe zWsuAjTcZXM9SuI2 KMO6dJZljM3phGtvnsjl hQ4qMhy+XMy0v5xaoSKg NA6toJD5DC82FP12tXHt b5H7fRK3R1QbIZXi birjplurcDY3VYPjJQXd hU77Xb0jrVksLn0mZGDu HDF3GWCivBIyP2UfrD1w DuQcDOPiNKZaY1Tc jKPtSOitA930GRyhQeY3 QUQfsgTrZ1AeBWXwsVfu YyX2j3G2Ka5SEZ34HH78 LR28sSIfb1W3dVN4 Z8JuIZNspawzmtxzxXY0 DPZqHGNosE37Li8tiWwj Xd1cXIKuDBO3KTJacGYg D2JooI9jWuNjVZRx HZHlL4AmsDZsJUwtW402 LZlfYiD2VKMtivHaL9Se UVEnfKpwXxT8j6T5Ht1N Tb14VR95DK80zTUq y7P4yND5R2VoEALzgxvc onzzfSH4CIBfRRXrbE22 Lw2ytUbfZq0eXZYoLWG4 BLZsmIDvJ8LcfH3k WgKdDQMnHXVkH8HnjNSj AEaaJ976FSqaHfK9HGLm wbIuM3QaPOUdnEciRwL3 h0Z2Hj0CXRbkgin4 Y2NeVgtqyNU+LF17TJBn TU64oQNdgUDts2ilqXe0 ZyIcPRThDXS6pTgnYUwd z2NfTCWkO98tjZUc c2U6 (more content not included)... Normal [facility] Postoperative Documentson Postoperative Documents [id number] 7#1.00CD:127 Normal [facility] Consenton 01-03-2023 Consent [id number] 9#1.00CD:127 Normal [facility] Discharge Instructionson Discharge Instructions [id number] 7#1.00CD:127 Normal [facility] IntraOperative Documentson 0 01-03-2023 IntraOperative Documents [id number] 2#1.00CD:127 Normal [facility] Main OR Intraoperative Recor don 01-03-2023 Main OR Intraoperative Record IntraOp Document Type FT Summary Primary Physician: Sylvester FITZPATRICK MD Finalized Date/Time: 01/03/23 09:19:49 Pt. Name: HARI THORNTON Jose Alfredo Hill/Sex: 1975 Male Med Rec #: [id number] Physician: Sylvester FITZPATRICK MD Financial #: [id number] Pt. Type: O Room/Bed: / Admit/Disch: 01/02/23 [...] General Comments: 1233 EGD completed/BARBI,RN 1235 Colonoscopy began/BARBI,RN 01/03/23 Chart opened to review and send charges LRoth CSFA Case Attendance FT Entry 1 Entry 2 Entry 3 Case Attendee Iza Sanders CRNA, RN, Christel Booth Role Performed BRAIN Molding Engineer - Primary Scrub - Primary Time In 01/02/23 12:23:00 01/02/23 12:23:00 01/02/23 12:23:00 Time Out 01/02/23 12:49:00 01/02/23 12:49:00 01/02/23 12:49:00 Procedure EGD AND COLONOSCOPY(.) EGD AND COLONOSCOPY(.) EGD AND COLONOSCOPY(.) Comments Dr. Ramey supervising procedure. Last Modified By: Antoine ENROLLMENT ADVISOR, Briseida Morley RN, RN, Kara N 01/03/23 09:18:58 01/02/23 12:50:05 01/02/23 12:50:05 Entry [...] (If Applicable) PreOp Antibiotic No Time Out [facility]AMER MACHINE, Given Participants Iza Padilla RN, DEMETRIA Reyez MD, Maher, Miles, Kirstyn K [...] 01/02/23 12:30:00 Stop 01/02/23 12:47:00 Anesthesia Type [facility] Gastroenterology Wound Class 2 - [...] and tissue Entry 1 Skin Integrity Intact, [place], Warm, and Skin Abnormality No Dry Outcomes [...] patient f (more content not included)... Normal [facility] Consent for Treatmenton Consent for Treatment [id number] #1.00CD:127 Normal [facility] Consultation Noteon 01-02-20 Endoscopic Procedure Report - [...] 1. Proximal esophageal ring, dilated using 56 Thai Engle dilator 2. Normal gastric mucosa, biopsied to rule out H. pylori 3. Normal duodenal mucosa Images Procedure images: Rec1_hd_video_3_0 2_08T12_34_03_010.truman g Rec1_hd_video_3_0 2_08T12_33_38_671.truman g Rec1_hd_video_3_0 2_08T12_33_53_377.truman g . Post-Procedure Complications: none. Estimated blood loss: none. Specimens: sent to pathology. Devices/ implants: none left in place. Impression and Plan 1. Proximal esophageal ring, dilated using 56 Thai Engle dilator 2. Normal gastric mucosa, biopsied to rule out H. pylori Recommendations: Follow-up in GI clinic in 2 weeks .. Normal [facility] Comment on above: Result Comment: Elec tronically Signed By: Sylvester FITZPATRICK MD\.br\Date and Time Signed: 01/02/23 12:52 EST Other Comment: Coleen muller Attachment - attachment storage system not supported [id number] Can be viewed in source systemMissing Attachment - attachment storage system not supported [id number] Can be viewed in source systemMissing Attachment - attachment storage system not supported [id number] Can be viewed in source system Consultation [...] 1. Proximal esophageal ring, dilated using 56 Thai Engle dilator 2. Normal gastric mucosa, biopsied to rule out H. pylori 3. Normal duodenal mucosa Images Procedure images: Rec1_hd_video_3_0 2_08T12_34_03_010.truman g Rec1_hd_video_3_0 2_08T12_33_38_671.truman g Rec1_hd_video_3_0 2_08T12_33_53_377.truman g . Post-Procedure Complications: none. Estimated blood loss: none. Specimens: sent to pathology. Devices/ implants: none left in place. Impression and Plan 1. Proximal esophageal ring, dilated using 56 Thai Engle dilator 2. Normal gastric mucosa, biopsied to rule out H. pylori Recommendations: Follow-up in GI clinic in 2 weeks [facility] Comment on above: Result Comment: Elec tronically Signed By: Sylvester FITZPATRICK MD\.br\Date and Time Signed: 01/02/23 12:34 EST Other Comment: Coleen muller Attachment - attachment storage system not supported [id number] Can be viewed in source systemMissing Attachment - attachment storage system not supported [id number] Can be viewed in source systemMissing Attachment - attachment storage system not supported [id number] Can be viewed in source system Endoscopic [...] Moderate nonbleeding internal hemorrhoids Images Procedure images: Rec_hd_video_2022_0 2_T1_49_58_135.truman g Rec_hd_video_2022_0 2_T1_45_32_419.truman g Rec_hd_video_2022_0 2_T1_43_32_936.truman g Rec_hd_video_0 2_T1_45_59_605.truman g . Post-Procedure Complications: none. Estimated blood [...] Return to activities:: After 24 hours. Normal [facility] Comment on above: Result Comment: Elec tronically Signed By: Sylvester FITZPATRICK MD\.br\Date and Time Signed: 01/02/23 12:53 EST Other Comment: Coleen muller Attachment - attachment storage system not supported [id number] Can be viewed in source systemMissing Attachment - attachment storage system not supported [id number] Can be viewed in [facility] Attachment - attachment storage system not supported [id number] Can be viewed in source systemMissing Attachment - attachment storage system not supported [id number] Can be viewed in source system Inpatient Patient Summaryon 01-02-2023 Inpatient Patient Summary [address] [address] [facility] Clinical Discharge Instructions PERSON INFORMATION Name: HARI THORNTON [facility]#:[id number] PHYSICIANS Admitting Physician: Sylvester FITZPATRICK MD Attending Physician: Sylvester FITZPATRICK MD PCP: NARAYAN GAGNON DO Discharge Diagnosis: Diarrhea Comment: PATIENT EDUCATION INFORMATION Instructions: Endoscopy, Care After Procedure [facility] ([facility]); Esophageal Dilatation; Colonoscopy, Care After Surgery [facility] (CUSTOM); Diverticulitis, Snag-sl-Buzm; Colon Polyps; Hemorrhoids, Nsju-bg-Tebb Medication Leaflets: Follow up: With: Address: Tania: Sylvester FITZPATRICK [address] [place] [address] [address] [place], [place] [phone] Business (1) Comments: Call for any problems. [...] every day., high heart rate Comment: Normal [facility] Main OR PACU I Recordon Main OR PACU I Record PACU Phase I Document Type FT Summary Primary Physician: Sylvester FITZPATRICK MD Finalized Date/Time: 01/02/23 13:17:59 Pt. Name: HARI THORNTON/Sex: 1975 Male Med Rec #: [id number] Physician: Sylvester FITZPATRICK MD Financial #: [id number] Pt. Type: O Room/Bed: / Admit/Disch: 01/02/23 [...] By: Shira Tyler RN 01/02/23 13:17 Normal [facility] Main OR Preoperative Recordo n 01-02-2023 Main OR Preoperative Record Holding Area Document Type FT Summary Primary Physician: Sylvester FITZPATRICK MD Finalized Date/Time: 01/02/23 11:55:04 Pt. Name: HARI THORNTON/Sex: 1975 Male Med Rec #: [id number] Physician: Sylvester FITZPATRICK MD Financial #: [id number] Pt. Type: O Room/Bed: / Admit/Disch: 01/02/23 [...] 11:52 Stacia Camara RN 01/02/23 11:55 Normal [facility] Monitor Recordon 01-02-2023 Monitor Record [id number] 7#1.00CD:127 Normal [facility] Monitor Record [id number] 8#1.00CD:127 Normal [facility] Monitor Record [id number] 8#1.00CD:127 Normal [facility] Outpatient Surgery Discharge Instructionon 01-02-2023 Outpatient Surgery Discharge Instruction [place] [id number] Patient Discharge Instructions PERSON INFORMATION Name: HARI THORNTON Date of : 1975 Current Date: 01/02/2023 12:59:38 PHYSICIANS Admitting Physician: DEMETRIA ANN Phan Discharge Diagnosis: Diarrhea HARI THORNTON has been [...] Follow up: With: Address: When: Sylvester [address] [place], [place] [phone] Business (1) Comments: Call for any problems. Office will call for follow up appt Pharmacy Information: Other: [facility] You may receive a survey from [employer] asking you to rate your care experience. Your feedback is important and will help us understand what we do well and how we can improve the quality of care we provide to you, your loved ones and our community. It?s an honor to serve you. Thank you for choosing [facility] HERE ARE THE MEDICATION CHANGES THAT [...] your c (more content not included)... Normal [facility] Progress Note-Physicianon Progress Note-Physician Patient: HARI THORNTON [facility]: [id number] Age: 47 years Sex: Male : 1975 Associated Diagnoses: None Author: Keyon Ramey MD Postoperative Information Postoperative disposition: Postoperative disposition: To PACU. Optimetrix number: Optimetrix number [id number]. Anesthetic utilized: Monitored anesthesia care. 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 Depression / SNOMED CT 20864906 / Confirmed Diabetes mellitus / SNOMED CT 492070569 / Confirmed Dysphagia / SNOMED CT 31027308 / Confirmed Dysuria / SNOMED CT 67007074 / Confirmed Hearing loss / SNOMED CT 43387371 / Confirmed Heart murmur / SNOMED CT 629297564 / Confirmed Heartburn / SNOMED CT 17709873 / Confirmed History of colon polyps / SNOMED CT 5274782001 / Confirmed Hydrocele / SNOMED CT 9549511596 / Confirmed Hyperlipidemia / SNOMED CT 74974765 / Confirmed Hypertension / SNOMED CT 0921546946 / Confirmed Irregular bowel habits / SNOMED CT 3668788397 / Confirmed Neoplasm of lung / SNOMED CT 206560070 / Confirmed Nocturia / SNOMED CT 054297786 / Confirmed Obstructive atelectasis / SNOMED CT 83917347 / Confirmed Post-void dribbling / SNOMED CT 222676123 / Confirmed Proteinuria / SNOMED CT 02272419 / Confirmed Psychiatric illness / SNOMED CT 861925201 / Confirmed Schizophrenia / SNOMED CT 73680448 / Confirmed Testicular swelling / SNOMED CT 8967119254 / Confirmed Type 2 diabetes mellitus / SNOMED CT 811051622 / Confirmed Urge incontinence / SNOMED CT 545576757 / Confirmed Urinary frequency / SNOMED CT 995362753 / Confirmed Urinary reflux / SNOMED CT 4132745050 / Confirmed 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 Normal [facility] Comment on above: Result Comment: Elec tronically [...] Auto 47.3 % Lymph Auto 35.8 % [place] Auto 15.7 % HI Eos Auto 0.4 % Basophil Auto 0.8 % Neutro Absolute 1.9 E9/L LOW Lymph Absolute 1.5 E9/L [place] Absolute 0.6 E9/L Eos Absolute 0.0 E9/L [...] 1 EA, Refill(s) 0, Prior to colonoscopy., [facility], 171, cm, 11/01/22 12:17:00 EST, Height/Length Dosing, 78.9, kg, 11/01/22 12:17:00 EST, Weight Dosing omeprazole 40 mg Cap-DR: 40 mg = 1 cap(s), Oral, Daily, X 90 day(s), # 90 cap(s), Refills(s) 0, Pharmacy: [facility], 171, cm, 11/01/22 [...] cap(s), Ora (more content not included)... Normal [facility] Comment on above: Result Comment: Elec tronically Signed By: Tanvir ANN, Keyon Andres\.br\Date and Time Signed: 01/02/23 11:40 EST Giardia, Direct, EIAon 12-28 G. lamblia Ag IA Ql (Stl) Negative Invalid Interpretation Code Negative [facility] Comment on above: Result Comment: Perf ormed at: [address] [id number] PhD Paul Mejia Performed By: #### 1 [id number], [id number], 23362680, 51636454, [id number], [id number] ####[facility] [address] [place] [address] O & P EXAM, ROUTINE, REFLEXo n 12-28-2022 Ova and parasites identified Concentration Nom (Stl) Comment Invalid Interpretation Code [facility] Comment on above: Result Comment: No o va, cysts, or parasites seen. One negative specimen does not rule out the possibility of a parasitic infection. Performed at: [address] [id number] PhD Paul Mejia Performed By: #### 1 [id number], [id number], 80484182, [id number], [id number], [id number] ####[facility] [address] [place] [address] O & P Exam, Routineon 2022 Ova and parasites identified LM Nom (Unsp spec) Final report Invalid Interpretation Code [facility] Comment on above: Result Comment: Thes e results were obtained using wet preparation(s) and trichrome stained smear. This test does not include testing for Cryptosporidium parvum, Cyclospora, or Microsporidia. Performed at: [facility] [address] [place], [place] [id number] PhD Paul Mejia Performed By: #### 1 [id number], [id number], [id number], [id number], [id number], [id number] ####[facility] [place] [place] [address] Coding Summary.on 12-26-2022 Coding Summary. CD:[id number]:[id number] Gh0bWw+PGhlYWQ+PE1FV GXqC70piTXyhB1KQ8hHX G7UZEVZPXKBZF1ISE5sh EO2KLwfY9YldfCb WydxdAJuPY30UQw3KMQ7 xHmeJAjibK2msSUkY6a7 RhJxWL48vF89HMcrDLCm NlA0TaKkygfofPEt Z4bqImDgzGDmVjf+PHRh YmxlIHdpZHRoPScxMDAl UtMjyJrbON8yUn5oWRFb LWNvbGxhcHNlOiBj a2ncEHUgNNzkGP4ttYex Z3XriAI9VDZee2c2Xz37 dHI+OAUxWSP9tZlqLOpb j766CxGat7wbQXH8 pIXvDYkbGQP0V62la0M4 OHOmHYPbGVE1kVF3iH4x kJxroiauW5ApuTAhGtD6 SGA1qIUjmM0kdGaf uhhojG3zXdz+T40CJV6Z XTCABF2LHiz7L1HrFvvy dHI+MB68RWClLX28zKEs pQKoi3fzlKk6RbOn SBIyWMG1tTasLFhcs9Np BZGmG12iqZGvo1U6RQWw yUbxgNIxQpNdrOK2jZ9w LVlchjfal7zmudhw Bikqk5djmu83lL65V99s OLjxTGFhBYF2PSBvXVOc pAffiz5jkC1yKk3+IDxj y9grm6nayAy3TpQq WMUicaJbfFyiSAD5p7Rg Ce85V6RyiCjbq8EuOye6 ro66wCKxa4E5iYY5YQml KOTtmR9aLZrbWzH1 XCDtAsCveR72cYWwCMrb Lx5fuPqwmFspJU8vXBHu ksvkRXGczM6vWHJwhCSn wKoaVI1qNJYfvmuo t729YyCbIIH6RIAtsEPh I5TrwY3yFcByRVBgTEWw T8QyqAXkYMswP611LBtb UgV0BTQwubErI6Va INVluVguMxA7x2O2Gd4L x7PaeqjvMVI3RKseQMAt IpGfAyNgDqE3K8JtHat6 WSOrqVleAN4yH8Zf XFLttefwxylfaTZ9DZTi XAVuvV97zLOmZCsqUq2a e1R2m892XKTxSUZfkV63 Gd7ndVvqMQGpxQBK wV1ijunxj8pzqernEaGv MYHvZLp6HXo7FWJlbJbc OcIeVOY4IgS7ZKW6iKFa hI2fxSiiintbpX6h Oyc+K05jbJ2zMQR0MMS6 yxoxMLGjmcMyKE65IU84 B3ToNvekuPMuaCG+PGRp rvFxzBxpOL3hVmQb c7znn7PnZQsfV1VoZHVm TFasDpl0AVXvCOP8hMT1 iM2vJYGsVKwdk3W8qHD9 N6OnekJsqf7zl2hu XRZbNGjxO28zmKTwn7O5 HNWkvNE9BNJcyQuwQxBw xM92Loh+IIRfvDder1Qk Lpfhj0jyw4dqsQt8 IjMwJSIgdmFsaWduPSJ0 c6AvFs34E50xIPlyKUMx MUHkTGOgPOUslWsydj1b eF3zMu3+PGNvbCB3 yIE8mM5fPMUsFvB1IJmc G337LgAinIXyYwuvp0gk k4sceRn3ZbQrNSMgihGr qVxvJUF2q0YwKf20 Y86qIBsbGKRlNUWrOKWr GNElzFsbyf8slE1hIc6+ TJ2ks6hcha05dO69mMJ+ WTEsYGV2xHcsPRso UDDkvV2fLMwmJgV6MCPj JdAldT87pVLkPVjyUg9l pOnmdQsmNV8zAVNxtmgn v538YvPaj5pfUCJt cHCvKNslDNP1X80wd0B3 RVOiOSCvVYS7qGA1wC6x bGlnbjogbGVmdDsgdmVy xFdwKExgYPcyE966 IHRvcDsnPlBhdGllbnQg YnAeNKp6J7BxKvc4RJQu pYbpKS4khLZqQCslMm8e vJpraNwhYY6vOSYa xjwmy519QbIpg0byJQQz nGDbSFkzOHA5W74xb1L0 HOXjVSIuZIH8cUU4bR3w bGlnbjogbGVmdDsg dbUpfGcxYIjzVUkqT051 IHRvcDsnPkJpcnRoIERh wGC7HV61HM57zPFhi8M5 eIH4W3QmIGNvkjxy lneabEY9OPPuZARllK10 Ry6gjUthKx8zWDXzIZA7 LBExtWEiZ9IzaY3qEaRt JWCpKHUqN5SroUBs CIfbY719LJjdQeK3GCOd kwAbZ5FtZOTglOjbZqC3 t5K0Wa3NK0U0VR59OD63 fBOtr8L6dOW8P3Sd DHUqgvliscwojLX4EUGh RJFysS67Jp7pnIspGm8x HEOpBHG3LZHgpPLdH5Xo gT9jHfLiUDNtHILo R1AlmKOkRWpzN323QAwn GgW9KDVwqbDgM0CxRYQd xMosKwG4t1G8Bs7RHDo9 RL80AZ79kLIfz6K5 hVV7Z2GoEBIlpolekmxb wCQ3IAWeDZRoyV45Qu0d zEwrQc6kZIKkFTX3NLJy bIVwD7RyvT6bQxLl OXGlTDHgW4IrwCNgAYwm I510ERnuYjO9KHNtnrLo R0LrJIEkxTuvGbV4f2N3 Gx7FQMOoXT29PAD2 hZD5YI24CA63M9AzFssq dGFibGU+PHRhYmxlIHdp ZHRoPScxMDAlJyBzdHls SB7cNv7sYWDaOSHl dVfphYWsCaBob8wzLHCt GBmgUG5oeIaoX6LriCH0 ODZix1j6Mt47B00zC4Si dXA+OMFhkHF1zIW1 hC5nTdItZzA8PSibG517 UsIocGUgIadfr5mmu9fp dWl8AeR5CNJyoqYvlUgu XEH7c0AyGm80U17e IHdpZHRoPSIxNSUiIHZh oUsjga0mbY6bGu0+PGNv vSC0hAZ4aT8bMtNpCpF7 LTccS523VfJyjYLu Trcak4jrf3nqhPr7OdPr OUWidzBxiCnnIPL8h2Af Sj10H3KomKmzs4ErIat1 fj03sFPdg4N3fTD2 N5IlOORydygjxARmqZxi NQ2sDWXnysgsVQOivD3m YHZnA0z5OzTeOcT6HIoq N5SnijJ6BINezFQn RLhaXQD0P42or5C9YORj PZGrRRM9xRB7mH3haItc bjogbGVmdDsgdmVydGlj QJbtIDreI609OMUh cJxrBYBeaL1dMTGxoOMs yUrlDV7dWBKurdhyFdqY FP7EBZENWPwKPSLWLZP7 Y1UyToc8UZZufXzc NM3csBNcBPehAt9xaBwm yCurBH4vHPCkgqorWQEe pN8pHBWjiHWkaYejTO5q DUCvnoopi603ZqOa NDW0TOZzwKTiF7OmpV5m HcYiEISwESQsP9WvsBDr SPvdG179EItzWoV5FHPh epGwC5GtZORjzJec YlO7y6P3Nw7gGG1bTQ4w QMvcGL39WV67bRKll1B0 nOG8E6EmOPEuccsfxnzf gEY7VVFwMSAmrQ72 kXTeJRtaEa7sh2B9c273 IHRaZUKxvV31Xw7qxUsg DZTrwSMWfG9znivwr9bw cjogIzAwMDAwMDt0 QAt3ZYYmkMayPsXmAGJ8 UmY7NYB4sBAaeP0jrUws shrlwS9pCyw+NDkgWWVh raS2B8LdVmv2IYSy gPbuCS7feYLvPKfiBm6t zXkpuCmnQN5tDXTjqwxa OUMkeQ3xVGTrjQNaiAtk OD2dQKDybyqkx192 HgWcVAS3UAQnxHKxI1Dk eF4iLnBcBDEjJUMsM3Tq gSBrPRjqV659EForMcE2 RRFzlgTxB6AzVDPc uPjgHgL9w5Y9Pj1DVLsz KO78ZR21nJLnz4B8pOP4 S4HpAJXnlymjnqidzQM8 ZSMtKQTssS61fSOe AMnjHs0ft1L3f369ETEg FEDaxB50Ep4dpSjeNRIm fFUOtZ8aytyef4oaohio JzOgHRPiNRc1PYp0 MDFmlDikEyBxNNV6ScC7 DEJ6wXSlqD9udRotufau oN0iFsv+BVHmJPUvr6Go g1EgCA90IO97T1Jx PjwvdGFibGU+PHRhYmxl IHdpZHRoPScxMDAlJyBz rIfnYS5xIg0oPEHyFVAi cOjgaKFsSkMmu0ex GHJuUDirVN6ivAiyJ2Yv pDD0AUJmi6r0Oi47O13f P7IcbSM+GDUwfPQ2fIY9 gG3gPgTzEhN7CTgj M413DyFxcBYjXnccx2pk h2wceJl1DmOaAOYvwhOp vBczQMV4k5OuPv24L78j IHdpZHRoPSIyMCUi RSCbrNxqde6vqN2zPg2+ BFTjxPI2dQV7qY8eApPy VmZ6MQrpO097OdBwaCPc VankP57yX9IecJV+ GDEaZoj0BDLuwZbuMR3v oTEvNXpgJc2xWSX9QiZg PlYdZTryV8DjFDKhabcw melcsHB9IAKfKWIs jS30Pm9osItjGc4hBFCz FJJ9MDKnrFTlP8UjlO8r ZrQqIMRhLOSiI4PcuPGg GXmlA207XBwrOpW0 YHEhjgVjQ6EgLRFnsJls LpI4k4E3Pb6YpGofbDRj GW0xYaRxMUb1P9QeEbd5 NFMxxGreRZ6yqTZx HHzaGv8wiPdafNcaYF8x ZEDzlvvhe371XzJpa1tf YPFzdTAaAKbtKFQ6O10o f2E1CYYbRKVkYKQ4 gXD8wO6omSaejdlxzACu dDsgdmVydGljYWwtYWxp B939VSJpaRimVtPQZek0 B2AhVho2RZKrmCed GL9gjAPtBFcqUv9vkSho vMvkLL6rBYTmspisl617 MvFyn1prFEWgwWQsETey HEH8I69jc7I0RZWc BIUmBZF4eEZ4tU3vtSfb bjogbGVmdDsgdmVydGlj ZXkmCPzmH745NIIbsLzr Lw5ALza3B8OvHpw9 TCFcdZwxJT5jaDIgDSqm Cy3rxXgcsZukCF7rMUHp wawhn865EhJte8xmIGFy oODqKRtuQHG5D63j n7U4IIVaXEEgYXT2mCX6 wI2wdOgwjurnbQUahFjk vzCreSsmGMhrTNypY856 IHRvcDsnPlBheWVy OjwvdGQ+FM67xs70O0Sh SieeCtq9EKBfNYQ7qVJ3 fQ6dKGCvKRmga1E9kYB9 N4ZgqjJphj8rf0dr YXBz (more content not included)... Normal [facility] Enteric Panel by PCRon 12-25 C. coli+jejuni+upsalie nsis DNA SHANEKA+non-probe Ql (Stl) Not detected Normal [facility] Comment on above: Result Comment: Test ing was performed utilizing reverse re examiner (RT), polymerase chain reaction (PCR), and array [...] nulcleic acid test. Performed By: #### 1 [id number], [id number], 12663456, 25635608, [id number], [id number] ####[facility] [address] [place] [id number] E. coli stx1+stx2 genes SHANEKA+non-probe Ql (Stl) Negative [facility] Comment on above: Performed By: #### 1 [id number], [id number], 89712178, 07107349, 78844273, [id number] ####[facility] [address] [place] [address] Enteric Panel by PCR Negative [facility] Enteric Panel Intrl QC Pass Normal [facility] Comment on above: Result Comment: Test ing was performed utilizing reverse re examiner (RT), polymerase chain reaction (PCR), and array [...] 1 and 2. Performed By: #### 1 [id number], [id number], 81320865, 81249001, 67366251, [id number] ####[facility] [address] [place] [address] Norovirus genogroup I+II RNA SHANEKA+non-probe Ql (Stl) Not detected Normal [facility] Comment on above: Performed By: #### 1 7107412, [id number], 05541307, 91380973, 48694792, [id number] ####[facility] [address] [place] [address] Rotavirus A RNA SHANEKA+non-probe Ql (Stl) Not detected Normal [facility] Comment on above: Performed By: #### 1 9413267, [id number], 14248110, 66012453, 54774030, [id number] ####[facility] [address] [place] [address] S. enterica+bongori DNA SHANEKA+non-probe Ql (Stl) Not detected Normal [facility] Comment on above: Result Comment: This test result should be correlated with clinical presentations and medical history by a healthcare provider to determine its clinical significance. Performed By: #### 1 [id number], [id number], 14917298, 51855005, 75738186, [id number] ####[facility] [address] [place] [address] Shigella species+EIEC invasion plasmid antigen H ipaH gene SHANEKA+non-probe Ql (Stl) Not detected Normal [facility] Comment on above: Performed By: #### 1 [id number], [id number], [id number], [id number], [id number], [id number] ####[facility] [id number] [place] [address] V. cholerae+parahaemol yticus+vulnificus DNA SHANEKA+non-probe Ql (Stl) Not detected Normal [facility] Comment on above: Performed By: #### 1 [id number], [id number], [id number], [id number], [id number], [id number] ####[facility] [id number] [place] [address] Y. enterocolitica DNA SHANEKA+non-probe Ql (Stl) Not detected Normal [facility] Comment on above: Performed By: #### 1 [id number], [id number], [id number], [id number], [id number], [id number] ####[facility] [address] [place] [address] C. Difficile PCRon C. Difficile PCR Unable to perform test due to consistency of stool. C. Difficile testing will only be performed on diarrheal (unformed) stool unless ileus due to C. difficile is expected. Reference: Clinical Practice Guidelines for Clostridium difficile Infection in Adults, Infection and Hospital Epidemiology March 2010, Vol 31, No 5. Normal [facility] Cdiff Specimen Acceptable Unacceptable Normal [facility] Comment on above: Performed By: #### 1 [id number], [id number], 79911074, 81634918, [id number], [id number] #### [facility] [address] [place] [address] Order Cancelled YES Normal [facility] Comment on above: Performed By: #### 1 [id number], [id number], [id number], [id number], [id number], [id number] #### [facility] [address] [place] [address] Fecal WBC Lactoferrinon 11-27 Fecal WBC Lactoferrin Negative Normal Negative [facility] Comment on above: Result Comment: The semi-quantitative detection of elevated levels of fecal lactoferrin is a marker for fecal leukocytes and an indication of intestinal inflammation. Performed By: #### 1 [id number], [id number], [id number], [id number], [id number], [id number] #### [facility] [address] [place] [address] Coding Summary.on 11-06-2022 Coding Summary. [id number] Gh0bWw+PGhlYWQ+PE1FV YTtT82xrLBalL1LG5cAL P0AYYWZOWSVEE2TYD4hf GY1UQxiD4OjniFj UmaugOAsBT14NAf0QQO7 rNmyUVnfbB8hiYQcJ5j8 LdNuGZ86qX75MJltPEIw MiH7OwDzpymizWCl V8srCjQamJJmLpi+PHRh YmxlIHdpZHRoPScxMDAl HoEnyRrdRU9nSh5jXAQa LWNvbGxhcHNlOiBj n6rzIVYbZCiqEE4huFjb C0UjxVV3NCXgv9k8Re75 dHI+ATPxLLV2xCdqSPoi y346ElQmr9zaVYL6 pTWmKJhfJMH1Q99tc0H0 SDUlWSHeWSD3wPZ5gP3c hYgzbsztG7NnlULpHtT6 HOV0sWQwpS5fyGsp jicboI3bRdi+P26WKL2U ZKAQHM3QXph6W7FgYuwk dHI+YD21BKTdIQ35iXNm uFCjw2bvyHn9AtNp BWZpXMY0pTnkOXigi9Jf AHRxV53ksGJdd2F8QDWi wNizxRJxXmQbeZO1yC1t VVcuajodi3duyihh Xakex0tqrb58jP20B76j JGdcWMRyESB9CDYrHLVn tYkmnb8taE1iEy0+IDxj v7sml1olrNq3RvTb KDRouhGqjNtrKAU4s6Rx Ok64R5CfrHalv8YlIhq6 ul01zIImt0T6rNV9NEns XKDsoC3xWDqiExJ5 LJJyMgXtbR51tKPiVBhz Lz7svFwrpMtrFL0uECOt mhtdRYYifE4cITKlwUOo lHkvQU6hJCAmwzqv m877JeMnUDG5IEZbrADk U8DqmZ2yVtPiMRBkEDAk W0KtiJAzMKuaU242XAnx OaU3UHSfoeDiI9Xf FIQlpGvqToR8t4J6Ie5R n0JggjryATH6XRjvFVSz GyTcNpGdUcY3V0NlPxv7 ZRIwfSbrWX1bQ2Nc ASPecgvvleykeYS6RBVp ARVueW65jFKcTHmuXi8a y6Q2n276IQQgOIOltP59 Bw2heLauHNNznKHP zS1gxzjxe2momyefMjBp WDGcBCz1NMf4CKVjpTsv KvAcURD7ZkT8HGZ0lDSh zM2yqYuaeylboD3i Oyc+I17aeN2fCTA0RRZ7 jvkhTEKizoZkSY68GE99 K2XlTelofHYkyES+PGRp qlOtxMzeNN5iCnSe x1oms3UfXYyyL3YoDGNp KKywQvu4NQWwCFK9pJQ6 pJ4zPFReSDcix8L8aSD7 Q6YvwcCogl8md6tt EMMoKLuiM38jqNIax2H5 UKCwcXW5KAEeyNwuNsHu wW87Bpa+PEEtbBrgh6Jf Lvrzy3oyp4wnbQt6 IjMwJSIgdmFsaWduPSJ0 y4VoZj16X27mKIwiQNAx QUZoZWWvZBFqrLmdfe5i tE2sWv3+PGNvbCB3 oOG2rN8uGWFlCzZ1WUbs J213WaTxjRKwEmovw2fz s5wcmMx4QnKrGXRbftMo hSyvKKK2b2DyGj45 B73wQCyoBPMhJQGxUZQi OAEwrDgqtc7jrY3zIb2+ BH3gr8npjs32lV91jNZ+ FOScEGK0uIlcQCul MUUaqO8fOSffTuP7OIZc DaIpeG51oPSxRJscBd6s bIdeyIgvME4uWLAvthff c394QuRdc1beAKLs eBCeEPjzFKT2N03ku2S8 CQGoLCElFAA5vXZ2sU8a bGlnbjogbGVmdDsgdmVy lQinCKkzSOhqS083 IHRvcDsnPlBhdGllbnQg ZxFqPCy6T9XkYwx0GBCi gSesHB9jeOSzPRmuHk0x mLhiwCcxHQ7fJNEi ucmdw118HcLrc6arJFZp jHFiCCzyMTV7T37uw1L5 ELRsXEKqOIT2rBC3fH6e bGlnbjogbGVmdDsg pwFpcCnbEVviWXhuW998 IHRvcDsnPkJpcnRoIERh kCY5WW73ZG83hYEnc4T6 nPP9F5GzZRPclglb nxhpiPW7KLAgAQTvpF44 Je0wwUkoWi4iJCGxIBS5 MNJcxMIwZ9LxaL4kCgMl LHBkJVNgI0ZlfWNd EWuyZ500YMjuFiZ5BJRx heTfU6VfRNXnyQaxDmC4 b3W3Rg9RC7A8DB03UM44 nIDwe5X3rYW8G8Da PJVctnzspqhuiRT0GFLg CWXhrX21Dm4ptSacWr6q EBQjIKX4GOCllAMxB4Sj bW5tPuOlVLMlGLNr K9OxdLBdLNtdS790VAzh PeZ5YWYaguJgX6TyCQYt oMqjMuD1o2W6Hr6ZYMq4 XG02JO74xAWzq3P6 vYN2L2AeMKQiobkadlih wAV8VYUaQCNgfU47Gd8g yWfrTd0rEHVtGVH8VRJc pKNnD3HhqC6dEnAl SXGzDXNaF3CzdOOeSTke W461TZvyNeG0HUFgpoLv P8QcVYFcwNykWlY0f3R3 Wf6FMQUcET95DAL2 pAX5ZY08YA45T2WpMdft dGFibGU+PHRhYmxlIHdp ZHRoPScxMDAlJyBzdHls IW5qRu9mZGAjIASl cEhqbVBoXbVxo5qlXCBt FMppOM1dfKffK6ZkvQD7 RNBff6t9Xm49C58hS1Eo dXA+SOJhgYG8dNH6 qM7hEaUcHxM5VIczC304 XxUppPJsGvqjg5fhy0gw bLu8SzD8ZWOxzuRzrKwe MUH3m0DoUs21S42r IHdpZHRoPSIxNSUiIHZh fIiurv7iuG0rMo7+PGNv cZL3oIE4jE0bErHcDeO2 MXybV940DbWysOCs Lyefd5ygn4nkzBl9PuXi OEQqhfTxlQvkYJV5y3At Pv22G8VqvTcqq0GiGku5 un18dVIov2C9tUI0 U0XlBFZsuwansWUcrAzf LM7eUJUtowhkGATihF7e GCZrT2x0MnNoIoY5LOot X6IaulK2AKMopBBr EZhmPZU7T63bz1M0HWKm SDRwIQS5mWJ8sB3nvCyh bjogbGVmdDsgdmVydGlj IZeiOVrmR890REFh yOwoNNCuiA9nWSYafDCc eAhxOV2dPVZfytvtWbjP GO7MZWBIVFaRWETNJRZ1 E9RlYqp8CDFqpSiz VY6kiZCaEZowQs9hvKuk dMjsWK6xOXTuqyrfRXDe aH4rPPAzpKYsePbcYH8t WRKqogdgn289IuVz RGA0GJFqtDPxR7SraE5n VyIaFGRdTTMgT4DeaCWj RYrrE599MWfjGsL8VCDk wsSbT8EqEHInaKar WmR7h1H4Ly5wYU0kDU7l JDvoBG25KA66yZJun8S6 yWD9M8XlOPWvydmfrias pDD1ZJMlUMYkrR19 wEFsPSroSj5ls8M0k785 KPFbKMRxrV73Jr1giNum NXPhnIAXcD9ycorya1pf cjogIzAwMDAwMDt0 EZj4EADuwAceXrVtIMA2 LuH4XBL0tRXwjC6orYpa rbamdJ3oCfu+NDkgWWVh pwC9I5VfRmj6IWMv zKnjWD2uhBAvJRxiYx8f nAsfqFblWW0mBISbyeur HRWsjX9yVGEusRQmjDmh PR3ePMTrdqphq649 ImDjTWJ8BLAiqPKuA4Xe wW5tFmDwGSYsYBKdZ6Dn nETqJLomJ943SUjrJpF7 OOZnjgLpD0WqYSKb sAwkRtL2j0D1Mf6MMLgb BY01UC86wJDsq0G1bAS0 C5DoIFGgrbcyoricaJF5 EHFsNLBvkH24cYDh TGkrSq5bw5H6b287LXWi HCYvlG57Qi1kwNmgMFWq hDQBlI3yxiuvw4vhhtms YsZdOVEmBVc3RUj1 JGEluJtvCfLaLQM7ErH0 VWL1oBHhfG9hqKzdoppx sL1wXnr+N4U0cME4uESt dDwvdGQ+DW88gz84 Q0AoOluyLvv6RTHhFQX2 oDV9vE3wYTEtQCerc8U7 vHY5M6TppkSwhu5hf7mj QJHvWRjeH53yaBYv t3X7TFAafUC6BLUtuSoh ZsIufC91Cco+PGNvbGdy d8AjKfeuu8oog8ickNm2 IjMwJSIgdmFsaWdu MFH7y2MjCj30A42dFRph ZHRoPSIzMCUiIHZhbGln kv9waQ9lIn8+PGNvbCB3 bPA6rQ5mTjDpVyY1 ODruW216NdMmzYIzDqoi n0mdg8qfjUj8NfTdWJVn kbDrtKolGPT1c2VhPi88 F5PffBbyz4SsRrh2 dq10eJBiy8L8iLT7C1By SADqlmkcpEPduSovTW1i SUFjyadmESUslB0sDFUz N4i2KaQvKlJ0FPms Y4WmybZ4GTPhoOMkXCEs qRKRbN2tbegls7tkjpvk SaDcMGZbCIc9AKg4RZJw yCouMvKqDYX2MaQ2 MPF3qTLyiJ5ltVympisc fX1mAon+LDc3u9mssIIt DD8bfHX7WR18IC71bPMg t6X4iJB3Y0IzAJRk utokfmvkuKO6DYJdNPUw dW07Gk9mkUjoRj6nGFBc RGR3TNSkcVRhQ5XfrE8t DsKsJCMlVTByA1Hl cMInNMcyB803LPkoNfL5 IZVezcVgE6WuCGTpkHix NaG4h1J0Jc6JGX08PV73 RW83kGJgr2F2rMV4 Q2MyBWAvtyyccmcjuDB8 BLPyXEPeiI96Gl3gkDsi Ta5dILDxXZJ2GUVpuVPq P9BphU2zWqWkQHVq ZUOyH1ChyCUsNXqlS490 NSmkZiP4HLBzvrMcQ2Ke MBXihXnyDbB5i6U7Rg2P Fp88QO78DY17mKDq s9J7lWD1L9QgVQCwgick spjifWM9ACDwGYHdcV50 Wi7vvXohSd0mRUFyNMO7 MARtzPFxI1LaiM9j VrEzTHChHKHaY3GzwISv KGobU888TIqeVkH2GVNk jePyC5MpDWSopPbiVyB7 n1U3Xa1JIMbzpbo1 Q8EtLphpmIB+ME83ATDs GG53aPLbsUEzk2ntqFw0 KiRsQBNhEXB7hDbjNSny i0IwYXHbA96roOFs c2U6 (more content not included)... Normal [facility] Consent for Procedure/Surger yon 11-05-2022 Consent for Procedure/Surgery [id number]#1.00CD:127 Normal [facility] Ambulatory Visit Summaryon 1 01-02-2022 Ambulatory Visit [...] Follow-Up Appointments Saturday 12:40 PM EST Where: [facility] You Need to Schedule the [...] future visit, Lab Collect, Irregular bowel habits [facility] Auto Diffon 11-01-2022 Basophils/100 WBC (Bld) 0.8 % Normal 0.0-2.0 [facility] Comment on above: Order Comment: Order Added by Discern Expert. Performed By: #### 2 021880, 5203675, 1691353, [id number] ####[facility] [address] [place] [address] Basophils/Leukocyte s Auto (Bld) [Pure # fraction] 0.0 E9/L Normal 0.0-0.2 [facility] Comment on above: Order Comment: Order Added by Discern Expert. Performed By: #### 2 804028, 5727863, 8559264, [id number] ####[facility] [address] [place] [address] Eosinophils/100 WBC (Bld) 0.4 % Normal 0.0-8.0 [facility] Comment on above: Order Comment: Order Added by Discern Expert. Performed By: #### 2 835795, 0191706, 1078298, 57696322 ####[facility] [address] [place] [address] Eosinophils/Leukocy dianne Auto (Bld) [Pure # fraction] 0.0 E9/L Normal 0.0-0.5 [facility] Comment on above: Order Comment: Order Added by Discern Expert. Performed By: #### 2 180484, 3196528, 4574190, 43270057 ####[address] [address] Lymphocytes/100 WBC (Bld) 35.8 % Normal 14.0-50.0 [facility] Comment on above: Order Comment: Order Added by Discern Expert. Performed By: #### 2 901151, 1886802, 9180804, 80973981 ####[address] [address] Lymphocytes/Leukocy dianne Auto (Bld) [Pure # fraction] 1.5 E9/L Normal 1.0-4.0 [facility] Comment on above: Order Comment: Order Added by Michael Expert. Performed By: #### 2 267585, 0535181, 7146824, 32285534 ####[address] [address] Monocytes/100 WBC (Bld) 15.7 % High 4.0-14.0 [facility] Comment on above: Order Comment: Order Added by Michael Expert. Performed By: #### 2 763379, 2331675, 6479481, 93631706 ####[address] [address] Monocytes/Leukocyte s Auto (Bld) [Pure # fraction] 0.6 E9/L Normal 0.2-1.0 [facility] Comment on above: Order Comment: Order Added by Michael Expert. Performed By: #### 2 127781, 5195302, 3961084, 39977406 ####[address] [address] Neutrophils/100 WBC (Bld) 47.3 % Normal 36.0-75.0 [facility] Comment on above: Order Comment: Order Added by Michael Expert. Performed By: #### 2 390650, 3089806, 2997813, 22219483 ####[address] [address] Neutrophils/Leukocy dianne Auto (Bld) [Pure # fraction] 1.9 E9/L Low 2.0-7.5 [facility] Comment on above: Order Comment: Order Added by Discern Expert. Performed By: #### 2 535807, 3581908, 6655475, 24989399 ####[address] [address] CBC w/ Auto Diffon Erythrocyte distribution width (RBC) [Ratio] 14.3 % High 10.9-14.2 [facility] Comment on above: Performed By: #### 2 081246, 8274880, 5694205, 95690184 ####[address] [address] Hematocrit (Bld) [Volume fraction] 41.4 % Normal 37.7-49.0 [facility] Comment on above: Performed By: #### 2 758511, 7859847, 1955181, 62073417 ####[address] [address] Hemoglobin (Bld) [Mass/Vol] 14.4 g/dL Normal 13.5-17.5 [facility] Comment on above: Performed By: #### 2 788100, 0632569, 5990159, 31072548 ####[address] [address] MCH (RBC) [Entitic mass] 31.2 pg Normal 27.0-34.0 [facility] Comment on above: Performed By: #### 2 301917, 1253800, 2089285, 26733168 ####[address] [address] MCHC (RBC) [Mass/Vol] 34.8 g/dL Normal 31.4-36.0 [facility] Comment on above: Performed By: #### 2 838010, 5110583, 8129203, 47338747 ####[address] [address] MCV (RBC) [Entitic vol] 89.9 fL Normal 80.0-100.0 [facility] Comment on above: Performed By: #### 2 932003, 2738247, 3125447, 54855141 ####[address] [address] Platelet mean volume (Bld) [Entitic vol] 7.0 fL Normal 6.4-10.8 [facility] Comment on above: Performed By: #### 2 033154, 1616371, 3314769, 16391607 ####[address] [address] Platelets (Bld) [#/Vol] 221.0 E9/L Normal 150.0-500.0 [facility] Comment on above: Performed By: #### 2 845828, 7728541, 6448665, 92223240 ####[address] [address] RBC (Bld) [#/Vol] 4.6 E12/L Normal 4.3-5.9 [facility] Comment on above: Performed By: #### 2 707707, 6194919, 4014791, 38934813 ####[address] [address] WBC corrected for nucl RBC Auto (Bld) [#/Vol] 4.1 E9/L Normal 4.0-11.0 [facility] Comment on above: Result Comment: Slid e reviewed by KD. Performed By: #### 2 162035, 1416217, 9235997, 36341021 ####[address] [place] [address] CMPon 11-01-2022 Albumin [Mass/Vol] 4.3 g/dL Normal 3.3-5.0 [facility] Comment on above: Performed By: #### 2 063368, 9780212, 0673658, 15129248 ####[address] [place] [address] Albumin/Globulin (S) [Mass conc ratio] 1.4 Normal 1.1-2.2 [facility] Comment on above: Performed By: #### 2 129385, 8856964, 3628955, 62859076 ####[facility] [address] [place] [address] ALP [Catalytic activity/Vol] 62 Int._Unit/L Normal 21-98 [facility] Comment on above: Performed By: #### 2 161923, 1920612, 8315601, 35104640 ####[facility] [address] [place] [address] ALT No additional P-5'-P [Catalytic activity/Vol] 16 Int._Unit/L Normal 6-46 [facility] Comment on above: Performed By: #### 2 898930, 0911484, 6497793, 96383438 ####[facility] [address] [place] [address] Anion gap [Moles/Vol] 10 mmol/L Normal 6-16 [facility] Comment on above: Performed By: #### 2 317244, 2333694, 0425170, 53524507 ####[facility] [address] [place] [address] AST [Catalytic activity/Vol] 14 Int._Unit/L Normal 5-43 [facility] Comment on above: Performed By: #### 2 489684, 5827299, 0654658, 14432977 ####[facility] [address] [place] [address] Bilirubin [Mass/Vol] 0.5 mg/dL Normal 0.0-1.1 [facility] Comment on above: Performed By: #### 2 127644, 3343520, 4782573, 31109936 ####[facility] [address] [place] [address] Calcium [Mass/Vol] 9.4 mg/dL Normal 8.9-11.1 [facility] Comment on above: Performed By: #### 2 563091, 9691344, 2532970, 78510339 ####[facility] [address] [place] [address] Chloride [Moles/Vol] 108 mmol/L Normal 101-111 [facility] Comment on above: Performed By: #### 2 863159, 5857481, 6138628, 16358403 ####[facility] [address] [place] [address] CO2 [Moles/Vol] 22 mmol/L Normal 21-31 [facility] Comment on above: Performed By: #### 2 391266, 3770926, 4812397, 20264778 ####[facility] [address] [place] [address] Creatinine [Mass/Vol] 0.7 mg/dL Normal 0.5-1.3 [facility] Comment on above: Performed By: #### 2 814390, 3587207, 8032943, 37917408 ####[facility] [address] [place] [address] Globulin (S) [Mass/Vol] 3.0 g/dL Normal 1.4-4.0 [facility] Comment on above: Performed By: #### 2 710632, 3066162, 2844826, 09828163 ####[facility] [address] [place] [address] Glucose [Mass/Vol] 219 mg/dL High 55-199 [facility] Comment on above: Result Comment: If t his glucose result represents a fasting glucose, interpretation should refer to the following reference range: 55-99 mg/dL Performed By: #### 2 552467, 8149670, 4325329, 29843012 ####[facility] [address] [place] [address] Potassium [Moles/Vol] 4.3 mmol/L Normal 3.5-5.3 [facility] Comment on above: Performed By: #### 2 160166, 1430401, 5114635, 61498318 ####[facility] [address] [place] [address] Protein [Mass/Vol] 7.3 g/dL Normal 6.0-7.8 [facility] Comment on above: Performed By: #### 2 429876, 1110006, 8226525, 49062420 ####[facility] [address] [place] [address] Sodium [Moles/Vol] 136 mmol/L Normal 135-145 [facility] Comment on above: Performed By: #### 2 333222, 9011734, 3495265, 23519089 ####[facility] [address] [place] [address] Urea nitrogen [Mass/Vol] 26 mg/dL High 5-21 [facility] Comment on above: Performed By: #### 2 899599, 5782187, 6523805, 87499234 ####[facility] [address] [place] [address] Urea nitrogen/Creatinine [Mass ratio] 37 No Units High 10-20 [facility] Comment on above: Performed By: #### 2 828101, 5126424, 8665844, 10180127 ####[facility] [address] [place] [address] CULTURE URINEon 11-01-2022 CULTURE URINE Culture Observations: NO GROWTH. Normal [facility] Comment on above: Performed By: #### U RCX #### [facility] [address] [place] [address] Dr. Pam Granger Consent for Treatmenton Consent for Treatment [id number] #1.00CD:127 Normal [facility] GLYCOHEMOGLOBIN A1Con 2021 ADA RECOMMENDATION SEE BELOW Normal [facility] Comment on above: Result Comment: ADA RECOMMENDED LIMIT 4.0 - 6.0 ADA THERAPEUTIC TARGET < 7.0 ACTION SUGGESTED > 7.0 Performed By: #### A 1C #### [facility] [address] [address] [address] Pam Granger Glucose [Mass/Vol] 189 mg/dL Normal [facility] Comment on above: Performed By: #### A 1C #### [facility] [address] [place], [place] [address] Dr. Pam Granger HbA1c (Bld) [Mass fraction] 8.2 % Critically high 4.5-6.2 [facility] Comment on above: Performed By: #### A 1C #### [facility] [address] [place], [place] [address] Dr. Pam Granger Gastroenterology Office/Clin ic Noteon [...] day(s), # 90 cap(s), Refills(s) 0, Pharmacy: [facility], 171, cm, 11/01/22 12:17:00 EST, Height/Length Dosing, 78.9, kg, 12 (more content not included)... Normal [facility] Comment on above: Result Comment: Elec tronically Signed By: Kiera RODRIGUEZ, Sue Veliz\.br\Date and Time Signed: 11/01/22 12:51 EST Patient Educationon 11-01-20 22 Patient Education Radiology Colonoscopy, Adult A colonoscopy [...] including vitamins, herbs, eye drops, creams, and ldgo-hjg-rvragma medicines. ? Any problems you or family [...] air t (more content not included)... Normal [facility] UA RANDOM W/MICROSCOPICon BACTERIA NONE SEEN Normal NONE SEEN [facility] Comment on above: Performed By: #### A 1C #### [facility] [address] [place], [place] [address] Dr. Pam Granger Bilirubin Ql (U) Negative Normal NEGATIVE [facility] Comment on above: Performed By: #### A 1C #### [facility] [address] [place], [place] [address] Dr. Pam Granger CAST NONE SEEN Normal NONE SEEN [facility] Comment on above: Performed By: #### A 1C #### [facility] [address] [place] [address] Dr. Pam Granger Clarity (U) CLEAR Normal CLEAR [facility] Comment on above: Performed By: #### A 1C #### [facility] [address] [place] [address] Dr. Pam Granger Color (U) LT. YELLOW Normal YELLOW [facility] Comment on above: Performed By: #### A 1C #### [facility] [address] [place] [address] Dr. Pam Granger Crystals LM Nom (Urine sed) NONE SEEN Normal NONE SEEN [facility] Comment on above: Performed By: #### A 1C #### [facility] [address] [place] [address] Dr. Pam Granger Epithelial cells LM Ql (Urine sed) FEW Abnormal NONE SEEN /RARE [facility] Comment on above: Performed By: #### A 1C #### [facility] [address] [place] [address] Dr. Pam Granger Glucose Ql (U) >1000 Abnormal NEGATIVE [facility] Comment on above: Performed By: #### A 1C #### [facility] [address] [place] [address] Dr. Pam Granger Hemoglobin Ql (U) Negative Normal NEGATIVE [facility] Comment on above: Performed By: #### A 1C #### [facility] [address] [place] [address] Dr. Pam Granger Ketones Ql (U) TRACE Abnormal NEGATIVE [facility] Comment on above: Performed By: #### A 1C #### [facility] [address] [place] [address] Dr. Pam Granger LEUKOCYTES Negative Normal NEGATIVE [facility] Comment on above: Performed By: #### A 1C #### [facility] [address] [place] [address] Dr. Pam Granger MUCOUS NONE SEEN Normal NONE SEEN [facility] Comment on above: Performed By: #### A 1C #### [facility] [address] [place] [address] Dr. Pam Granger Nitrite Ql (U) Negative Normal NEGATIVE [facility] Comment on above: Performed By: #### A 1C #### [facility] [address] [address] [address] Pam Granger pH (U) 6.0 [pH] Normal 5-9 [facility] Comment on above: Performed By: #### A 1C #### [facility] [address] [place] [address] Dr. Pam Granger RBC 0-2 Normal 0-2 [facility] Comment on above: Performed By: #### A 1C #### [facility] [address] [place] [address] Dr. Pam Granger SPEC GRAVITY 1.025 Normal 1.005-<=1.025 [facility] Comment on above: Performed By: #### A 1C #### [facility] [address] [place] [address] Dr. Pam Granger UA PROTEIN Negative Normal NEGATIVE/ TRACE [facility] Comment on above: Performed By: #### A 1C #### [facility] [address] [place] [address] Dr. Pam Granger Urobilinogen Qn (U) 0.2 {Steve'U}/dL Normal 0.2 - 1. 0 [facility] Comment on above: Performed By: #### A 1C #### [facility] [address] [place] [address] Dr. Pam Granger WBC NONE SEEN Normal NONE SEEN [facility] Comment on above: Performed By: #### A 1C #### [facility] [address] [place] [address] Dr. Pam Granger eGFRon 11-01-2022 GFR/1.73 sq M.predicted among blacks MDRD (S/P/Bld) [Vol rate/Area] mL/min/{1.73_m2} Normal >=59 [facility] Comment on above: Order Comment: Order added by Discern Expert. Result Comment: eGFR is race adjusted. AA=. Performed By: #### 2 735932, 0555078, 8234154, 86175185 ####[facility] [address] [place] [address] GFR/1.73 sq M.predicted among non-blacks MDRD (S/P/Bld) [Vol rate/Area] mL/min/{1.73_m2} Normal >=59 [facility] Comment on above: Order Comment: Order added by Discern Expert. Result Comment: Storage Wharfage Clerk cydney kidney disease could be indicated at eGFR's of less than 60 mL/min/1.73m2. Kidney failure is indicated at less than 15 mL/min/1.73m2. Performed By: #### 2 746042, 5638886, 0158952, 30784812 ####[facility] [id number] [place] [address] Physician Referralon 022 Physician Referral [phone] [id number] Normal [facility] Coding Summary.on 09-26-2022 Coding Summary. CD:[id number] Gh0bWw+PGhlYWQ+PE1FV XYrT19udANmvD3VN2lME Y3FHAXRTLQKIZ9MYI5wl MX0QJqsR9AyfvDg MlekxDNvJT53HNx6NAS8 gFpyYJxulG1icJWyX8r9 FrWkZM26tH01FDhpWSIs BrA0VgAtivgsjUEq B6gtPhHrhTApInp+PHRh YmxlIHdpZHRoPScxMDAl NaIadJitLF7nQd7dTLFm LWNvbGxhcHNlOiBj h2xmLQXnOVpnTL7urKiw W5DfvZI6DEDvb6c8Nq19 dHI+FDWwIVW9wZdrVMme w785McPuf7ouLMP4 fUDxHQxnREG4R01in8G5 GOUdYQMaSED8vJV1mS3v vEzsxljpH0BszCOvQaP2 MGV3aZUjrI0cjHyq lndvcL7uTjr+T48GUJ7X ROHIUG6GUig0O0PmKgkj dHI+YG50KGNzGQ85pXBc pHIsv0lqtAa7LoAr DTKlNPY6cFykRYhfx3Te BLDoK75bkGDke6Z5GAPj bXxliWLqFaMhxQM8iD1b CJbkdnacf6zgnivo Wttak6tjst69iP87Q13y CTmlBVIiBWC7KVLmMHFr eKehld1ouG1pIs9+IDxj z4xhx1pjaHx4VrPj EMVgksJxzSwlRPU3t8Hw Yn99L6NweEibq6OdPzn7 sb88gGCqv3W4bFG2MQbs KJLjzZ7pUKocWfH6 KWKvCaXxeJ96pMVaYMhl Fk1llQaznEgzVX8dOPNy sbinNDChgD6zOIKbgELa cOyxVZ6hJKNnttol a729WfKzYFE7GWGerQLc H0MetC2zJiQaIMMuKDVd X8ZvuVCbBQcaQ313UCzx ZiW9CMCglvPfT3Km RHUazCvtWpQ0w7B3Zg8A g3QpbncgCWS6BYfcGCSu XdCyXrEjPqJ5H6DuHqm2 OZOksAttYW4rV5Mk IQLgfcbqqbjuwXN8UEDv AIWabV84eXPhSFfdPh7d d5P1v233NMVfRNOniQ50 Yw1hpOhdYUVhsPGU yW2snvwao0uthtivOrQs FSRnFSy4AOk2DQFzlWzq DvZoGEQ7AhH4XIL0kLPx rH4gaUfbmmhjzI8a Oyc+C84oiZ5jEDO9VWF9 xofjBCOjewJrNK08WW53 T7VsZrvhrSHqkQG+PGRp ndTytKmgIV0nIsYk u2xrf7NxQTqiJ6NnKDNd XDvtWzz1HSKvTIF9uXB7 zE0rOVCcUVnhb3D5dNP2 F1CnntNylo5zk9fm XTYlXDgoH74niSGjd6U3 MFJbmXQ8HQIxoRlfWeLx zR99Alr+KYRbjEmtm9Dm Zveqf2gva3yrsSu8 IjMwJSIgdmFsaWduPSJ0 y4DqHw35N93aNMbeQNGn WQBtCCVcIIPuoUyhck1v vG2fGd9+PGNvbCB3 mYW2nQ3rDQShBdB3DPrp R893NaCsaSEqFyxzl1wo d4kzhPq5MsVeYGQbyuLw sBlxTKG5c4XdQj03 V06kYOlwDLMuZDQjRDDz BOIsrYsnoi8skI2fIc9+ MA5rg3qdxg18dM07hMS+ VADqSSC9uDioHWhx NSYbfT9iBUhrFcG1DUGe HkUjuI52aIFaYMuaGo7p rPrdrRcnTQ8bFABxekht s154WxJsc3rvYXDy aOCjOXseIEZ1Q13jk7W4 WPPyNVPwUUM1sMJ2fQ5a bGlnbjogbGVmdDsgdmVy kHidTAdmAQdvL405 IHRvcDsnPlBhdGllbnQg KaZgPTe3A6OcPgh8ZWDw fUbfFY1vsXRcOAeuIj2v vUbejCihGT4eUZWy axmnc945NpNuv7yhKWUh kTZqLEvxQQI4M79so2W3 VFRjNSMcSIN6gGN7fM9p bGlnbjogbGVmdDsg svYisLtpNZpfFIhlA898 IHRvcDsnPkJpcnRoIERh qNA7RK84QY11lFEep1Y5 jZL7J9VqOGFfxkzn kddzgCO8UKLbLSUigU31 Rk7zdPcwWo2uTRSdUPW8 YZGcwNAaD8WxaK4cLhGo UDBgIPQnI3EhqIQt FMmaH152CRsvEtS7GJUd efXoW5RwUNXaoRjlCkS6 o8X1Mt5SB3B1SO23PP89 kULnz2W6zTO0P5Pd GZIidpxulmaopMG2PKKv PHBhpD21Vx0ybGppTk1b QYJuNPA7RGYelHOmB2Fl hF7iUbKfECMrNGXi J7FgzIPwIPjgF507QTbx YoN8AAYefrMvZ3PtZHNr cCwhGqC4x4D7Jr4JDMz5 US30CS24aHOof3S6 lWY1E6IlVVCbeivcexze uVE7LLIvIUJfsZ08Hx5g yMhmBj0mJBIuJVY0UXUq lUBcB5KutB6cPlRv QZOwNUAbL7CrbBFqTTtg G810AMogPnN7GJThzbAa B8DdRYRbgQgpCcO7f1P5 Ll8TTPXzXX52OQF0 kGB3YY12PN06A3BkAcsq dGFibGU+PHRhYmxlIHdp ZHRoPScxMDAlJyBzdHls GJ9yZo7nHJZrMIKj lEugsRKdMzRmq1mhKJKm QXmwPL6uxRbiK7DqcND0 KRAam8a1Do01H10hJ9Gh dXA+ZQYccSG1aNV1 tZ4qSpWrTfE6HBpwX040 NvOpxWHhSxyea4jne5tw aGd0BlZ2UBOvisJlaSut NFW6v7EfQy46E00y IHdpZHRoPSIxNSUiIHZh pXzfml9soE1fOk9+PGNv jJG8mVY4jI0kOiFkMoT4 QSsjR161AxBrlNCp Biscf2fdu9dtqZz2CdYt BSWdgnYdcZwmHVA2l3Ry Qx37Q2TuiHmcb5DkNpw5 yf80mIStp9Y8wAO9 B7ZsRKXrpqjtoGFsmWnt EQ9pVAKjujbwSGBsiL6n ZFDgH5b7VaPjGuO7HScr Y1AjjfT3TFFirVDi GGfgTRV9K76lg9J5OJXk YGOvIDX1fKM8bL5jhSjv bjogbGVmdDsgdmVydGlj NNqxTBgkX353RXAn eIzfYQVatA0xTLWtlZBx kJrdDH9gUZSowtbdXqqE SS0SKPIGILrUUAVYYJO0 W5WsLvu0HTQmtFlu XY0llGJuWGegFp0teSve hQoyUP8oXDRrpuymGRSz iY3kNKSwiJXfmHeaPF6i IWDssismg343KsUj IEU5FOOtuVLdC3KgcG7n SuRyBZErPVDrI4RdhFQw OFcqT157ZLdoGlT3WRMo kyFcT4AfWNUamFny SpG7v8R4Ew0bAI7vTA7t NXfwMJ58HT13jUDec4K6 pRQ5S3JfJSXhsotirjsm wRH9IRSsHBBrmH50 zWEvGEcjVz9sw1D4v123 MPVhVBSwcU03Jc0tzPju GXLojZMUxW3ukdmqz7iu cjogIzAwMDAwMDt0 IDc5ZLYnuBxoEbDjMFX3 EdT8ZCV9zKVmlK2nySka biiooA6jNbr+NDkgWWVh dfE7Y6XcUqg4IXVt lJurKU5hpUJlGOfeDf4g dMnmuXqsKJ6yGFOeaqeo LOEngD2fCRUwhAEmeAyi XR5cCGYmeuwny890 QuOcKQG2UFTonJRbW5Os uF9cLsCgJRVuPYJkG9Dt aEYpPEevF790KWwxOaT0 HUUlqtWqH6FdCIOl xHpwUmY1h6J1Uw8PLHee VA72SL79aZGss9M7wES2 I5NtBQRsjolmcioqhRQ2 AYOvVWSjfH09dZNg TVblEw3xe2P9r409EJFs ZLSkoV26Qt5fvGufYMKa oJBTaI0hcbsea8qhihkd UnKdMTCbZDs5DOv2 KFUudDslDfBnXCU3QgU6 YKB9fCMuuM6vvIfwbhlu rZ0dDqu+S2K7kBL3gZJr dDwvdGQ+ZX24fe16 H2KqRoycZks5KLSyEBG2 cAU9jN8gYYXoWCoxc5Y7 gWR3P3VtqeZauq6ft6pm JIMjAGlfE91fmDYg n1T8BAIezYI0DEUzbSbr LqRwpN66Zml+PGNvbGdy a6ZsSqpcs1qpk5kvgKt0 IjMwJSIgdmFsaWdu XHE4u7XdGm09P24uAFlt ZHRoPSIzMCUiIHZhbGln ak3cuA2fCr1+PGNvbCB3 eQN7tI5yXzCjEvK0 BRscD750QoDdsCTpQyaq p1wot6dvsIg0RoIzSSBt okPjcVfjAYI5x6MwWd30 J8ZvoBcdn0TpHjl6 lb31jBVsq8T0tEP5D1Fu XCErfznveUDqbPtiVF1q FDVxlamkNGPdeQ1lAZAp I3z4PrYzUsT1DYhp V2NswzI3PWJfcKWkUGMt xKPAoA3cxviol8kwmrev VdUbKMCgVHp7CNk6ARXf aDpuXjAzLBW0WjG6 ULU9xPGjrR7meTkisbxn vS9aDue+KIn5c1iqdEWq CM1vdZY1QR27MG56qBFu c1B2hZU8S7DwKGEf waaimszygND5DWCaCDDg aB67Dv3asOmtUm8zQNZo IDL3KHEghYIpF4MlfX4x HsFjKPQfHBGmP0Fa sJYpHArlW757TBamCrO4 MHXyewKoU1ItYBIldIvl QvE2x3U8Ad2KPK71VX02 FT46gYQkn7K4hUE1 A5UjNMAxktquhwjgvMQ7 BKEiRZPruS38Yk4nvGnh Py6gXNWbROU4FMTfbFWi X4JujV0vLoFaYVBn NNSjS3VvbUIlSDmeH760 HKfdVaU2BDJvdaYzX7Ef KUHlpBycKpP0s7V1Dn5I Ai36YQ56EE17jLOz f6Y6sCU3D7TnBOXhvlyt tzsnnVU8OQMdWYAzmK53 Fq8usHpbLb3mKCYcPIQ9 HDNmsWSfO3KyoB7j HtZgPVNqXJMaF3DaoWDh LPxuY556VVkvAcA3USAv zhVbS2HdXQUrwRhpNwV3 w2H9Hn2RGPqmogy3 O8VvYkcpqXT+DH07EGMf PW42iHVmjCXky3rhlQr7 CsFkQRMxZAD6sThaZIzp k7RbHWTzJ20kgKYm c2U6 (more content not included)... Normal 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 COMPARISON: Sinus CT from [facility] TECHNIQUE: Multiple images axial images were obtained [...] V. Transcribed by: GARCIA Technologist: RODO, Justa [facility] Consent for Treatmenton 08-26 Consent for Treatment [id number] #1.00CD:127 [facility] Physician Orderon 09-14-2022 Physician Order [id number] #1.00CD:127 [facility] COVID-19, Rapidon 06-25-2022 SARS-CoV-2 (COVID-19) RNA SHANEKA+probe Ql (Unsp spec) Not detected Not Detected [facility] Comment on above: Rapid NAAT: The [...] management decisions. Fact sheet for Healthcare Providers: https://www.fda.gov/media/577073/download Fact sheet for Patients: https://www.fda.gov/media/982587/download Methodology: Isothermal Nucleic Acid Amplification Specimen Description .NASOPHARYNGEAL SWAB [employer] [facility] [employer] XR CHEST PORTABLEon 06-25-20 No acute abnormality. [facility] CON[facility] EXAMINATION: ONE XRAY VIEW OF THE CHEST 06/25/2022 9:24 am COMPARISON: 05/16/2022 HISTORY: ORDERING SYSTEM PROVIDED HISTORY: cough TECHNOLOGIST PROVIDED HISTORY: cough FINDINGS: Lungs are grossly clear with some similar mild linear scarring in the periphery of the left mid lung. No pneumothorax or pleural effusion. Mild eventration of the right hemidiaphragm. Cardiomediastinal contours are within normal limits. No acute bony findings. [facility] Felecia Pelletier DO - 06/25/2022 EXAMINATION: ONE XRAY VIEW [...] acute bony findings. IMPRESSION: No acute abnormality. [employer] Work Phone: Radiology Study observation (narrative) [employer] Phone: XR CHEST PORTABLEOrdered By: Felecia Pelletier on 06-25-2022 [employer] Phone: GLYCOHEMOGLOBIN A1Con 2021 ADA RECOMMENDATION SEE BELOW Normal [facility] Comment on above: Result Comment: ADA RECOMMENDED LIMIT 4.0 - 6.0 ADA THERAPEUTIC TARGET < 7.0 ACTION SUGGESTED > 7.0 Performed By: #### A 1C #### [facility] [address] [address] [address] Pam Granger Glucose [Mass/Vol] 192 mg/dL Normal [facility] Comment on above: Performed By: #### A 1C #### [facility] [id number] Pam Granger HbA1c (Bld) [Mass fraction] 8.3 % Critically high 4.5-6.2 [facility] Comment on above: Performed By: #### A 1C #### [facility] [address] [address] [address] Pam Granger Acetaminophen Levelon 2021 Acetaminophen Level <5 Low 10 - 30 ug/mL ZENA[facility] Interpretation and review of laboratory results Abnormal [facility] CBC with Auto Differentialon 05-16-2022 Absolute Eos # 0.09 [facility] Absolute Immature Granulocyte 0.03 [facility] Absolute Lymph # 2.11 [facility] Absolute Stutsman # 0.79 [facility] Basophils (Bld) [#/Vol] 0.06 10*3/uL [facility] Basophils/100 WBC (Bld) 1 % 0 - 2 % [facility] Eosinophils/100 WBC (Bld) 1 % 1 - 4 % [facility] Hematocrit (Bld) [Volume fraction] 40.9 % 40.7 - 50.3 % [facility] Hemoglobin (Bld) [Mass/Vol] 14.2 g/dL 13.0 - 17.0 g/dL [facility] Immature granulocytes/100 WBC (Bld) 1 % High 0 [facility] Interpretation and review of laboratory results Abnormal [facility] Lymphocytes/100 WBC (Bld) 33 % 24 - 43 % [facility] MCH (RBC) [Entitic mass] 31.6 pg 25.2 - 33.5 pg [facility] MCHC (RBC) [Mass/Vol] 34.7 g/dL 28.4 - 34.8 g/dL [facility] MCV (RBC) [Entitic vol] 91.1 fL 82.6 - 102.9 fL [facility] Monocytes/100 WBC (Bld) 12 % 3 - 12 % [facility] NRBC Automated 0.0 0.0 per 100 WBC [facility] Platelet distribution width (Bld) [Ratio] 12.2 % 11.8 - 14.4 % [facility] Platelet mean volume (Bld) [Entitic vol] 9.7 fL 8.1 - 13.5 fL [facility] Platelets (Bld) [#/Vol] 234 10*3/uL [facility] RBC (Bld) [#/Vol] 4.49 10*6/uL 4.21 - 5.7 7 m/uL [facility] Segmented neutrophils/100 WBC (Bld) 52 % 36 - 65 % [facility] Segs Absolute 3.35 [facility] WBC (Bld) [#/Vol] 6.4 10*3/uL [facility] COVID-19, Rapidon 05-16-2022 Interpretation and review of laboratory results Abnormal [facility] SARS-CoV-2 (COVID-19) RNA SAHNEKA+probe Ql (Unsp spec) Detected Abnormal Not Detected [facility] Comment on above: Rapid NAAT: The [...] this assay. Fact sheet for Healthcare Providers: https://www.fda.gov/media/967713/download Fact sheet for Patients: https://www.fda.gov/media/973779/download Methodology: Isothermal Nucleic Acid Amplification Results reported to the appropriate Health Department Specimen Description .NASOPHARYNGEAL SWAB [facility] Comprehensive Metabolic Pane ajay 05-16-2022 Albumin [Mass/Vol] 4.7 g/dL 3.5 - 5.2 g/dL [facility] Albumin/Globulin [Mass ratio] 2.0 {ratio} [facility] ALP (Bld) [Catalytic activity/Vol] 65 U/L 40 - 129 U/L [facility] ALT [Catalytic activity/Vol] 12 U/L 5 - 41 U/L [facility] Anion gap [Moles/Vol] 14 mmol/L 9 - 17 mmol/L [facility] AST [Catalytic activity/Vol] 11 U/L <40 [facility] Bilirubin [Mass/Vol] 0.22 mg/dL Low 0.3 - 1.2 mg/dL [facility] Calcium [Mass/Vol] 10.1 mg/dL 8.6 - 10. 4 mg/dL [facility] Chloride [Moles/Vol] 101 mmol/L 98 - 107 mmol/L [facility] CO2 [Moles/Vol] 23 mmol/L 20 - 31 mmol/L [facility] Creatinine [Mass/Vol] 0.57 mg/dL Low 0.70 - 1.20 mg/dL [facility] Free PSA/Total PSA [Mass fraction] 7.0 g/dL 6.4 - 8.3 g/dL [facility] GFR >60 >60 mL/min [facility] GFR Non- >60 >60 mL/min [facility] Glucose [Mass/Vol] 203 mg/dL High 70 - 99 mg/dL [facility] Potassium [Moles/Vol] 4.4 mmol/L 3.7 - 5.3 mmol/L [facility] Sodium [Moles/Vol] 138 mmol/L 135 - 144 mmol/L [facility] Urea nitrogen (BldV) [Mass/Vol] 12 mg/dL 6 - 20 mg/dL [facility] Urea nitrogen/Creatinine (Bld) [Mass ratio] 21 High [facility] EKG 12 LeadOrdered By: Zheng Anderson on 05-16-2022 Atrial Rate 92 BPM [employer] Work Phone: P [place] 67 degrees [employer] Work Phone: P-R Interval 170 ms [employer] Work Phone: Q-T Interval 354 ms [employer] Work Phone: QRS Duration 90 ms [employer] Work Phone: QTc Calculation (Bazett) 437 ms [employer] Work Phone: R [place] 73 degrees [employer] Work Phone: T [place] 85 degrees [employer] Work Phone: Ventricular Rate 92 BPM [employer] Work Phone: [employer] Work Phone: EKG 12 Leadon 05-16-2022 Normal sinus rhythm Possible Left atrial enlargement Borderline ECG When compared with ECG of 23-NOV-2021 09:40, Nonspecific T wave abnormality no longer evident in Inferior leads Confirmed by COCO ANDERSON ([id number]) on 05/16/2022 7:06:44 PM [facility] RADIOLOG[facility] Coco Anderson MD - 05/16/2022 Normal sinus rhythm Possible Left atrial enlargement Borderline ECG When compared with ECG of 23-NOV-2021 09:40, Nonspecific T wave abnormality no longer evident in Inferior leads Confirmed by COCO ANDERSON ([id number]) on 05/16/2022 7:06:44 PM [employer] Work Phone: Ethanolon 05-16-2022 Ethanol [Mass/Vol] mg/dL <10 mg/dL [facility] [employer] Prenatal Ethanol percent <0.010 <0.010 % [facility] Chemistry and C hemistry - challengeon 05-16-2022 GFR/1.73 sq M.predicted MDRD (S/P/Bld) [Vol rate/Area] [facility] Comment on above: Average GFR for 40-4 9 years old: 99 mL/min/1.73sq m Chronic Kidney Disease: <60 mL/min/1.73sq m Kidney failure: <15 mL/min/1.73sq m eGFR calculated using average adult body mass. Additional eGFR calculator available at: http://www.[employer]/multiple_crcl_2012.htm Stage 1: Some kidney damage normal GFR Stage 2: Mild kidney damage GFR 60-89 Stage 3: Moderate kidney damage GFR 30-59 Stage 4: Severe kidney damage GFR 15-29 Stage 5: Severe kidney damage GFR <15 ESRD - chronic treatment by dialysis or transplant No Panel Informationon 05-16 Interpretation and review of laboratory results Abnormal [facility] Salicylateon 05-16-2022 Salicylate Lvl <1 Low 3 - 10 mg/dL [facility] Drug Screenon 05-16-20 Amphetamine Screen, Ur Negative NEGATIVE [facility] Barbiturate Screen, Ur Negative NEGATIVE [facility] Benzodiazepine Screen, Urine Negative NEGATIVE [facility] Buprenorphine Urine Negative NEGATIVE [facility] Cannabinoid Scrn, Ur Negative NEGATIVE [facility] Cocaine Metabolite, Urine Negative NEGATIVE [facility] Methadone Screen, Urine Negative NEGATIVE [facility] Methamphetamine, Urine Negative NEGATIVE [facility] Opiates, Urine Negative NEGATIVE [facility] Oxycodone Screen, Ur Negative NEGATIVE [facility] [employer] Phencyclidine, Urine Negative NEGATIVE [facility] [employer] Propoxyphene, Urine Negative NEGATIVE [facility] [employer] Antidepressants, Urine Negative NEGATIVE [facility] Comment on above: Drug screen results are to be used for medical purposes only. All positive results are unconfirmed. Testing for employment or legal uses should be sent to a reference laboratory for confirmation. [employer] XR CHEST 1 VIEWon 05-16-2022 No acute airspace disease identified. [facility] CONSOLIDATED EXAMINATION: ONE XRAY VIEW OF THE CHEST 05/16/2022 6:40 pm COMPARISON: None. HISTORY: ORDERING SYSTEM PROVIDED HISTORY: covid TECHNOLOGIST PROVIDED HISTORY: covid FINDINGS: Shallow inflation. The cardiomediastinal silhouette is within normal limits. There is no consolidation, pneumothorax or evidence for edema. No evidence for effusion. No acute osseous abnormality is identified. [facility] Ziyad Ramos MD - 05/16/2022 EXAMINATION: ONE XRAY VIEW OF THE CHEST 05/16/2022 6:40 pm COMPARISON: None. HISTORY: ORDERING SYSTEM PROVIDED HISTORY: covid TECHNOLOGIST PROVIDED HISTORY: covid FINDINGS: Shallow inflation. The cardiomediastinal silhouette is within normal limits. There is no consolidation, pneumothorax or evidence for edema. No evidence for effusion. No acute osseous abnormality is identified. IMPRESSION: No acute airspace disease identified. [facility] Phone: Radiology Study observation (narrative) [facility] Phone: XR CHEST 1 VIEWOrdered By: Jose Alfredo Murrell on 05-16-2022 [employer] Phone: Physician Orderon 02-13-2022 Physician Order [id number]#1.00CD:127 Normal [facility] IntraOperative Documentson 0 02-01-2022 IntraOperative Documents [id number] 2#1.00CD:127 Normal [facility] Coding Summary.on 01-31-2022 Coding Summary. CD:[id number] Gh0bWw+PGhlYWQ+PE1FV BNbC99wuKVerX3QP8sNK X0YYDJZUGVRNG1FGN9dr DP3YBorB4HcrcYp OitvuSIxES86ZSq5GPG4 hKhyXXqlfW7xqUOjV4w5 GyNoOU93jB46EMcqKASv CpU0TmTyhrgxkJLu Q3egMeAasMVmCbq+PHRh YmxlIHdpZHRoPScxMDAl IhSsfUogRE3jIs7bZOWh LWNvbGxhcHNlOiBj j9vuPHTxCXmhGV4gfEbj G2GeoHQ1MOSvh1v6Ah64 dHI+UMOeTLW0qAbaVRyz l924FwNkl1ntOIN3 nORrTXvvLMR4W07jl5I9 EAPqPTJaCDU2eMC6uT8r qElpjmcwP6HieOCfPzI2 HZT7dUMcuQ4bnLoo dlhduN6sOdt+M59LNP1A LBAOSX2KIim0P7TbTdle dHI+EO16TSOjYX90wBKd aJGfh6bwkMr6IjUz QWNvCTJ8iNhwUKljk8Lh NYEgX24lrFRzs6H3QASz lJqjdETtDkCeaMT6fY3q MJcnlzvfo3yzakgt Mbrmd5xbmt43yI04B31h MBuiLJXnIJE7DXYyLOZw wJqyia4tlV2tXb5+IDxj k6rlz4zltDt3HnEy TUWpujHnvTykAPP4b8Gm Qd68N5JnsWcgd1RuJle2 fa41iKHko4U0iHZ8JFhb PZBkgK3cVEmsKiG6 WKVqOzTrfT37nZSiNSiz Bo6onHapiDjpJN7uWMIl kftmWZPpbO7uNZOacQJg bYxmGZ6uMRLpmelz k227NsOpFEI9XDOwbXZb Y9OerY9hAfNyPNOqJBEk F3KmcQIcUPdqY672VRqh KfU8LPNnepTsZ5Wb DCHedDraJjF7e9Q7Bh9G k1LxuobfSBT2IGayGPMh XoQ4PeTaAbK5E4TzGas3 NZKjcSsjGX2yL6Sf GZGdkoibjqofqDE0GKEj ROMsoZ63dCWoWLogDa7q i4D8z976ASGkPJYsaK55 Ic9djEywTKBqnIHQ uA5prcvan7gdftnxHlYz XFYlJDb7RDk0ZSWisVds ZmDuVUA1ReQ0MJM4cXAa yI3qfLopburdsL9d Oyc+N75vpN7cDHO1AZN4 eugtGFBujtMdRI32NS13 P1WzPwloqKKhxLP+PGRp moUrtNleVY3tOwWt n7pmx6IjJLilR7QoGBVn GCbjJip5ZAGoBUE9gJT8 wJ0gUXXrFQucg6J5uRD0 L1YtacYsws6at9td EXKaQSldX46jcQRob8H0 YCMrtWB0NRUivLcpPoDu uK28Old+XSRhsBofj6Bh Glzld2fzd8khwTt3 IjMwJSIgdmFsaWduPSJ0 x7UiAu91N33wBUngXDZi QPDtDBWtJABugYdpxc8m iK1jFa1+PGNvbCB3 mWX9aA4pGCYmXiH6WDwn Q400EpSkwKBgDvbrr5ym g8rdlZo1VzRgEMExxeXl vTwoEWB1i2EoWr02 F42lMWztSIHnMFCaVJUl ERBzsSgszs2yxH7oKq9+ BP2zh6jjtk17bZ53rFL+ ARZiRGJ7sIxlXJao EURkqF6nGZotDrG6CMRc KhSfuS51hHBdMIieHo9x oLqutRfuIS2tMTVsggvx z621DiYcx5bpLLUa lQEbYQrmAIT8T74zj4B8 XUOjFJQgDUT4kOH5sW3s bGlnbjogbGVmdDsgdmVy eForWCegCQfrP069 IHRvcDsnPlBhdGllbnQg GhCnWOg9I1UjThh1OHHv oRflXR6deKOfSYfaGe0r fEctiGfoMR3mLGQq kzlfm290WwNkw7wrJEGq lYTmZOzhLXU8G27mh6R3 AJEnZOBmKLX0sNZ4jC7c bGlnbjogbGVmdDsg zkAsxYolTWfkUTjeA936 IHRvcDsnPkJpcnRoIERh uVK2CT22FI63lNFpq1U7 bBX5O9GqERIuxhwt rwkrqDM9NMCtTROavW69 Bb3mcFuhVe3wMLCtTIF5 HBWifBJlK2PhlW7xZnVm TMTaGHNcG8RjkNOj FYreV728CMzjXzO7ELNu wkSkL8DwEBUweDdeFdA6 l2F4Es1MU4L0BV01DL64 eZZft4O0rFM0X3Pe PQXzespieplgxMM3ZPRc CIIvfU43Qr5nmEgnUj0c UAFuKZK8XYFccBLlS6Tv eX3xTfKtCTDdIXDy G0OtfYNqDKsbC327RWao ZgY6AMAupkHyM1SkNDKf pSlrPmP3u2A4Pt9TKQo0 DP51KA69rZAyv8D9 pKD0J4BfONLgcopjegwk lZJ8HDSdMPSbqW55Ke0q tJbtZn3xRSDeJJE2JUMf hVEsI4SdmJ1jLhGz QGIfFGCwJ6DuhJCkHZxn L539SKqySfC2NLUgcgGe W3AsSMEylQnmEmY2u0S7 Fs0DBOWpOB30BZH4 qES2IS05SJ58P3GfDvsz dGFibGU+PHRhYmxlIHdp ZHRoPScxMDAlJyBzdHls TH2gRd0nCQZrVUEl yFxksOSmZcIji5vqSPCn WMutWZ6woFzeT8CbcWZ6 GGOqf7m9Hd47U52uU7Db dXA+UPQmyKC8mVM4 kB7xJnWoWfX3KUvuC611 GfSqbHYwBsdes1gmg5kj fIa7IxN6AHMikiSwjZos QQB5r7HbPh94W92n IHdpZHRoPSIxNSUiIHZh cChodx2kwW1kEm3+PGNv dMA8sCU6kY2jTaYkDvK8 KWovM378WnTwrEGx Ufzum4eff5hhdBf5YhBq WIMghoGpkVuoLBM0o3Up Fg97J4FthVoga2IwAty9 tx33sSOyu2D6dDE5 T7KiGGHjiiflrFQdqWvq MF3tLUNjscwhLHBiiJ9d MCJnQ1f7BeQzFcQ4VIgh J9YmhxF4RZMghAWb WYvlKSN3R14ax8I0YMXz KAKnPTW7sKC5yK4dwLpf bjogbGVmdDsgdmVydGlj PGylYDqiP616QZPt hJcfXVDzpM2bLYQixORh pDqgEY9rPSCdreuzJuwH ZN4KNRYMSBiLJBBOTJQ0 E7IgYev3NNLlfJjw BN0dpKTkDHfgNs0xjIyn tHntJK6cDPLsnoszNZEe aY3mFMWvnOLtxQcyBO3w KQEwjdafs941SzJc KCK4XIKndMBjF3RcfQ9s EtNrYPFeVINpL0CnnSMe ZRomQ608FLbxFwC0ILMc mhDmA7JvULYiaWzw HwD8w8Q2Zc3aAH9iWV2n VEhpRH56FH31rDZjt4N2 pRE9L5QsZQQrbtmsidvx rJS5GVAwXYNyrU20 sEVeEAsiFr6vb4O5c166 SNSkVWGorL25Ea9vkHow BZXskSGFnU7yznlcx8tj cjogIzAwMDAwMDt0 QZz2XFAkkGqaObIiCEU2 OlX2DVF9yHLfxE3lhSxf pwryxL2dBvk+NDggWWVh avU8R9RlTzu8CITq qBljVF6hhJQmJKwaWo3b kWgrmXblLY7fTSNhwrbv TJBndX1ePAGlsALeuFgm DE9oGNIixlylc379 DmPaZPE7YJYicSRaB0Df vV8yEyWfLKBzIEMrE8Hn pIUaYKlvX301UEvpGnX5 NRScylFoV5FsCYKw kBkmZrW3f3B9Lg7KDPtx CZ54AK55rZJpj0W0pFM5 N5McUCKcwqthbrlytRE0 SAKfBRKftQ48wHOz TIhjWg4nz8V5s412SBDm ZMEquU21Se0qjRxwIXWt cPVWxR4fkoblg5oorrlm NcYnSLUeFNb5OFx6 ZOMfvTujEzCaBVS3FhB9 EKQ6lISmiY8vbCzxpoqf dV3sQgu+Y0L4xDF5fVFd dDwvdGQ+DK53fc45 T6YaJobbUsy0NZNdJBO7 lGY9eL6sCOIhEEefc8Z2 pTQ6L7PzhkYxur0kw6bt RNIzSMrvQ08paIXj u9C3AOIhuWI5TEJghNfb VdAdvJ26Mlq+PGNvbGdy i3ZuIrxbs2frq7hvyEu3 IjMwJSIgdmFsaWdu DOD5e3GxGc21O98gBVbu ZHRoPSIzMCUiIHZhbGln vr4gfK0dJy6+PGNvbCB3 uCA4uR1oPyOnJiI2 ZXehO865PeTejXXcIdud i8ftt1hplZk4KfJiJLMa tlMkeUqtUSD5t4WiKf17 C5CllSwby8LmAnc7 qn95lBMfc9V3qHW1Q7Mx WRSmnhoqxRNevCtkZI7b DVQkvqjuKHZqsZ5vSGNy M5k2IxUxWjO6PUop Q2YblfK0BUPrfENeDHHu sLLNhG9euhsao1mjssse UkXwYODuGMm0YOg1GWEo sIayBsYgCWP6BrR4 IVM8vLNqqU0soSnptjsc tS5qQka+BLl5f6wsrAJh AP5wzZW8HV34ZP24jWBa u3E7nUY9I2BmDYXg cqtnbzsnqSQ7RZAxDKOq eG50Ab8uaMbsNu4qWCDx FAQ8UXKodTLaW5SybE4q RzNxPLAgCBLsQ1Lb zQIkRCkaR416TVeqHuA1 AZImjfVpZ9GwKNFvrNch CjS4w7C8Po1IRU09BM66 GH80jAYut2Z8mPF6 J0UnQMLwtlocmrfsoFC1 KNSnQISoiC34Vm7vlNss Pa9sQJXjUZX3BJNemYJo J6IkcW4fUqPeGBFh YWUvK6HnvLRiWCchW825 OHmkBzS0NFMjzzEcT8Jq TDGvtNrnTsM4d0S2Mw1F Sz62RW89NO92vHMy k4U6nOA7A6UdVECmbalf dnfgvHW0DKRxCRKthL97 Hk5ugUyiUh8lRCGcHZC2 VBLutYWjN2PiiJ9i XbXoYULsSLGuD2PmwCXb QPphU389GLlgPnG3FSTb eiNiP0ToSPJwsJihVjI5 o9L0Au9RTOkdxpx1 A2MkWfaarZB+IP88OWUa SY47hTFwzWJfb2zcrGr9 JyFmRLCjKHY1rLnrOBan s7IvFQIhW03svFTo c2U6 (more content not included)... Normal [facility] US LE Venous Duplex Righton 01-27-2022 LE [...] Pringle M.D. Transcribed by: GARCIA Technologist: RAMON [facility] Consent for Treatmenton Consent for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 Nonspecific T wave abnormality Abnormal ECG When compared with ECG of 08-AUG-2004 08:48, Nonspecific T wave abnormality now evident in Inferior leads QT has lengthened Confirmed by Adama Aguirre MD ([id number]) on 11/16/2020 5:30:37 PM [place] Metabolic Panelon 11-16-2020 GFR/1.73 sq M predicted among non-blacks MDRD (S/P/Bld) [Vol rate/Area] [place] Comment on above: Stage 1: Some [...] body mass. Additional eGFR calculator available at: http://www.[employer]/multiple_crcl_2012.htm Vital Signs Date Time Vital Sign Value Performing Clinician Facility 12-11-2024 13:07-0500 Body height 167.64 cm [facility] 12-11-2024 13:07-0500 Body mass index (BMI) [Ratio] 27.2 kg/m2 [facility] 12-11-2024 13:07-0500 Body temperature 97.9 [degF] [facility] 12-11-2024 13:07-0500 Body weight 76.65 kg [facility] 12-11-2024 13:07-0500 Diastolic blood pressure 55 mm[Hg] [facility] 12-11-2024 13:07-0500 Heart rate 142 /min [facility] 12-11-2024 13:07-0500 SaO2% (BldA) [Mass fraction] 94 % [facility] 12-11-2024 13:07-0500 Systolic blood pressure 91 mm[Hg] [facility] 12-02-2024 13:31-0500 Body height 167.64 cm [facility] 12-02-2024 13:31-0500 Body mass index (BMI) [Ratio] 27.3 kg/m2 [facility] 12-02-2024 13:31-0500 Body weight 76.71 kg [facility] 12-02-2024 13:31-0500 Diastolic blood pressure 85 mm[Hg] [facility] 12-02-2024 13:31-0500 Heart rate 89 /min [facility] 12-02-2024 13:31-0500 Respiratory rate 12 /min [facility] 12-02-2024 13:31-0500 Systolic blood pressure 120 mm[Hg] [facility] 09-17-2024 10:57-0400 Body height 167.64 cm DO Narayan Ball Work Phone: [facility] 09-17-2024 10:57-0400 Body mass index (BMI) [Ratio] 27.8 kg/m2 DO Narayan Ball Work Phone: [facility] 09-17-2024 10:57-0400 Body weight 78.24 kg DO Narayan Ball Work Phone: [facility] 09-17-2024 10:57-0400 Diastolic blood pressure 75 mm[Hg] DO Narayan Ball Work Phone: [facility] 09-17-2024 10:57-0400 Heart rate 128 /min DO Narayan Ball Work Phone: [facility] 09-17-2024 10:57-0400 Respiratory rate 20 /min DO Narayan Ball Work Phone: [facility] 09-17-2024 10:57-0400 Systolic blood pressure 131 mm[Hg] DO Narayan Ball Work Phone: [facility] 07-20-2024 15:05-0400 Body height 167.6 cm Christopher Genesis DO Work Phone: [facility] 07-20-2024 15:05-0400 Body mass index (BMI) [Ratio] 29.7 kg/m2 Christopher Genesis DO Work Phone: [facility] 07-20-2024 15:05-0400 Body weight 83.46 kg Christopher Genesis DO Work Phone: [facility] 07-20-2024 15:05-0400 Diastolic blood pressure 68 mm[Hg] Christopher Genesis DO Work Phone: [facility] 07-20-2024 15:05-0400 Systolic blood pressure 116 mm[Hg] Christopher Genesis DO Work Phone: [facility] 06-24-2024 11:46-0400 Body height 167.64 cm DO Narayan Ball Work Phone: [facility] 06-24-2024 11:46-0400 Body mass index (BMI) [Ratio] 28.1 kg/m2 DO Narayan Ball Work Phone: [facility] 06-24-2024 11:46-0400 Body weight 79.15 kg DO Narayan Ball Work Phone: [facility] 06-24-2024 11:46-0400 Diastolic blood pressure 74 mm[Hg] DO Narayan Ball Work Phone: [facility] 06-24-2024 11:46-0400 Heart rate 114 /min DO Narayan Ball Work Phone: [facility] 06-24-2024 11:46-0400 Respiratory rate 12 /min DO Narayan Ball Work Phone: [facility] 06-24-2024 11:46-0400 Systolic blood pressure 110 mm[Hg] DO Narayan Ball Work Phone: [facility] 05-15-2024 06:52-0400 Body height 167.64 cm DO Narayan Ball Work Phone: [facility] 05-15-2024 06:52-0400 Body weight 79.37 kg DO Narayan Ball Work Phone: [facility] 05-07-2024 10:00-0400 Diastolic blood pressure 63 mm[Hg] Kashmir Consolo DPM Work Phone: [employer] 05-07-2024 10:00-0400 Heart rate 89 /min Kashmir Consolo DPM Work Phone: [employer] 05-07-2024 10:00-0400 Respiratory rate 15 /min Kashmir Consolo DPM Work Phone: [facility] [employer] [facility] 05-07-2024 10:00-0400 SaO2% (BldA) [Mass fraction] 93 % Kashmir Consolo DPM Work Phone: [employer] 05-07-2024 10:00-0400 Systolic blood pressure 109 mm[Hg] Kashmir Consolo DPM Work Phone: [facility] [employer] [facility] 05-07-2024 09:21-0400 Body temperature 98.8 [degF] Kashmir Consolo DPM Work Phone: [facility] [employer] [facility] 05-07-2024 07:23-0400 Body mass index (BMI) [Ratio] 28.02 kg/m2 Kashmir Consolo DPM Work Phone: [employer] 05-07-2024 07:23-0400 Body weight 78.74 kg Kashmir Johnsonolo DPM [facility] 05-01-2024 10:25-0400 Body height 167.6 cm Mth [facility] [employer] 05-01-2024 10:25-0400 Body mass index (BMI) [Ratio] 28.73 kg/m2 M[facility] [employer] [facility] 05-01-2024 10:25-0400 Body temperature 98.01 [degF] Mth Rm [employer] [facility] [employer] 05-01-2024 10:25-0400 Body weight 80.74 kg Mth Rm [employer] [facility] 05-01-2024 10:25-0400 Diastolic blood pressure 71 mm[Hg] [facility] Rm [facility] 05-01-2024 10:25-0400 Heart rate 96 /min [facility] R[facility] 05-01-2024 10:25-0400 Respiratory rate 18 /min [facility] 05-01-2024 10:25-0400 SaO2% (BldA) [Mass fraction] 96 % [facility] 05-01-2024 10:25-0400 Systolic blood pressure 109 mm[Hg] [facility] Rm [facility] 03-12-2024 13:05-0400 Body height 167.64 cm [facility] 03-12-2024 13:05-0400 Body mass index (BMI) [Ratio] 27.4 kg/m2 [facility] 03-12-2024 13:05-0400 Body weight 77.11 kg [facility] 03-12-2024 13:05-0400 Diastolic blood pressure 62 mm[Hg] [facility] 03-12-2024 13:05-0400 Heart rate 136 /min [facility] 03-12-2024 13:05-0400 SaO2% (BldA) [Mass fraction] 98 % [facility] 03-12-2024 13:05-0400 Systolic blood pressure 116 mm[Hg] [facility] 01-23-2024 10:14-0500 Body height 167.64 cm [facility] 01-23-2024 10:14-0500 Body mass index (BMI) [Ratio] 27.8 kg/m2 [facility] 01-23-2024 10:14-0500 Body weight 78.18 kg [facility] 01-23-2024 10:14-0500 Diastolic blood pressure 67 mm[Hg] [facility] 01-23-2024 10:14-0500 Heart rate 71 /min [facility] 01-23-2024 10:14-0500 Respiratory rate 16 /min [facility] 01-23-2024 10:14-0500 Systolic blood pressure 94 mm[Hg] [facility] 09-20-2023 11:30-0400 Body height 167.64 cm Narayan Ball Other [employer] Other 09-20-2023 11:30-0400 Body mass index (BMI) [Ratio] 28.15 kg/m2 Narayan Ball Other [employer] Other 09-20-2023 11:30-0400 Body weight 79.11 kg Narayan Ball Other [employer] Other 09-20-2023 11:30-0400 Diastolic blood pressure 90 mm[Hg] Narayan Ball Other [employer] Other 09-20-2023 11:30-0400 Respiratory rate 16 /min Narayan Ball Other [employer] Other 09-20-2023 11:30-0400 Systolic blood pressure 132 mm[Hg] Narayan Ball Other [employer] Other 03-04-2023 12:00-0400 Body height 167.64 cm Narayan Ball Other [employer] Other 03-04-2023 12:00-0400 Body mass index (BMI) [Ratio] 28.34 kg/m2 Narayan Ball Other [employer] Other 03-04-2023 12:00-0400 Body weight 79.65 kg Narayan Ball Other [employer] Other 03-04-2023 12:00-0400 Diastolic blood pressure 74 mm[Hg] Narayan Ball Other [employer] Other 03-04-2023 12:00-0400 Respiratory rate 16 /min Narayan Ball Other [employer] Other 03-04-2023 12:00-0400 Systolic blood pressure 106 mm[Hg] Narayan Ball Other [employer] Other 02-08-2023 10:30-0400 Body height 167.64 cm Narayan Ball Other [employer] Other 02-08-2023 10:30-0400 Body mass index (BMI) [Ratio] 27.92 kg/m2 Narayan Ball Other [employer] Other 02-08-2023 10:30-0400 Body weight 78.47 kg Narayan Ball Other [employer] Other 02-08-2023 10:30-0400 Diastolic blood pressure 72 mm[Hg] Narayan Ball Other [employer] Other 02-08-2023 10:30-0400 Respiratory rate 16 /min Narayan Ball Other [employer] Other 02-08-2023 10:30-0400 Systolic blood pressure 108 mm[Hg] Narayan Ball Other [employer] Other 01-02-2023 13:15-0500 Diastolic blood pressure 82 mm[Hg] Phan SALAM [facility] 01-02-2023 13:15-0500 Heart rate 84 /min Phan SALAM [facility] 01-02-2023 13:15-0500 Respiratory rate 18 /min Phan SALAM [facility] 01-02-2023 13:15-0500 SaO2% (BldA) [Mass fraction] 94 % Phan SALAM [facility] 01-02-2023 13:15-0500 Systolic blood pressure 119 mm[Hg] Phan SALAM [facility] 01-02-2023 13:05-0500 Diastolic blood pressure 88 mm[Hg] Phan SALAM [facility] 01-02-2023 13:05-0500 Heart rate 95 /min Phan SALAM [facility] 01-02-2023 13:05-0500 Respiratory rate 18 /min Phan SALAM [facility] 01-02-2023 13:05-0500 SaO2% (BldA) [Mass fraction] 94 % Phan SALAM [facility] 01-02-2023 13:05-0500 Systolic blood pressure 126 mm[Hg] Phan SALAM [facility] 01-02-2023 13:00-0500 Diastolic blood pressure 77 mm[Hg] Phan SALAM [facility] 01-02-2023 13:00-0500 Heart rate 87 /min Phan SALAM [facility] 01-02-2023 13:00-0500 Respiratory rate 21 /min Phan SALAM [facility] 01-02-2023 13:00-0500 Systolic blood pressure 114 mm[Hg] Phan SALAM [facility] 01-02-2023 12:50-0500 Body temperature 98.42 [degF] Phan SALAM [facility] 01-02-2023 11:59-0500 Blood Pressure Location Phan SALAM [facility] 01-02-2023 11:59-0500 Body temperature 99.32 [degF] Phan SALAM [facility] 11-01-2022 12:12-0500 Blood Pressure Location Sue Qureshi [facility] 11-01-2022 12:12-0500 Body temperature 97.88 [degF] Sue Qureshi [facility] 11-01-2022 12:12-0500 Diastolic blood pressure 59 mm[Hg] Sue Qureshi [facility] 11-01-2022 12:12-0500 Heart rate 89 /min Sue Qureshi [facility] 11-01-2022 12:12-0500 Systolic blood pressure 93 mm[Hg] Sue Qureshi [facility] 06-25-2022 11:24-0400 Body mass index (BMI) [Ratio] 29.54 kg/m2 Narayan [employer] Work Phone: [employer] 06-25-2022 11:24-0400 Body temperature 98.4 [degF] Narayan [employer] DO Work Phone: [facility] [employer] 06-25-2022 11:24-0400 Body weight 83.01 kg Narayan [employer] DO Work Phone: [facility] [employer] 06-25-2022 11:24-0400 Diastolic blood pressure 89 mm[Hg] Narayan [employer] DO Work Phone: [employer] 06-25-2022 11:24-0400 Heart rate 105 /min Narayan [employer] DO Work Phone: [facility] [employer] 06-25-2022 11:24-0400 Respiratory rate 18 /min Narayan [employer] DO Work Phone: [facility] [employer] 06-25-2022 11:24-0400 SaO2% (BldA) [Mass fraction] 97 % Narayan Ball DO Work Phone: [facility] [employer] 06-25-2022 11:24-0400 Systolic blood pressure 148 mm[Hg] Narayan Ball DO Work Phone: [facility] [employer] 05-16-2022 19:21-0400 Diastolic blood pressure 88 mm[Hg] Narayan Ball DO Work Phone: [facility] [employer] 05-16-2022 19:21-0400 Heart rate 95 /min Narayan Ball DO Work Phone: [facility] [employer] 05-16-2022 19:21-0400 Respiratory rate 18 /min Narayan Ball DO Work Phone: [facility] [employer] 05-16-2022 19:21-0400 SaO2% (BldA) [Mass fraction] 97 % Narayan Ball DO Work Phone: [facility] [employer] 05-16-2022 19:21-0400 Systolic blood pressure 149 mm[Hg] Narayan Ball DO [facility] 05-16-2022 15:46-0400 Body mass index (BMI) [Ratio] 29.54 kg/m2 Narayan Ball DO Work Phone: [facility] [employer] 05-16-2022 15:46-0400 Body temperature 99.3 [degF] Narayan Ball DO Work Phone: [facility] [employer] 05-16-2022 15:46-0400 Body weight 83.01 kg Narayan Ball DO [facility] 11-23-2021 09:02-0500 Body height 167.6 cm Kashmir Consolo DPM Work Phone: [employer] 11-23-2021 09:02-0500 Body mass index (BMI) [Ratio] 29.12 kg/m2 Kashmir Consolo DPM Work Phone: [employer] 11-23-2021 09:02-0500 Body temperature 97.9 [degF] Kashmir Consolo DPM Work Phone: [employer] 11-23-2021 09:02-0500 Body weight 81.83 kg Kashmir Kelly DPM Work Phone: [employer] 11-23-2021 09:02-0500 Diastolic blood pressure 84 mm[Hg] Kashmir Kelly DPM Work Phone: [employer] 11-23-2021 09:02-0500 Heart rate 102 /min Kashmir Kelly DPM Work Phone: [employer] 11-23-2021 09:02-0500 Respiratory rate 20 /min Kashmir Johnsonolo DPM Work Phone: [employer] 11-23-2021 09:02-0500 SaO2% (BldA) [Mass fraction] 96 % Kashmir Kelly DPM Work Phone: [employer] 11-23-2021 09:02-0500 Systolic blood pressure 150 mm[Hg] Kashmir Kelly DPM Work Phone: [employer] 11-24-2020 10:30-0500 BP Diastolic 91 mm[Hg] Kashmir [employer] [place] , [place] 11-24-2020 10:30-0500 BP Systolic 145 mm[Hg] Kashmir [employer] [place] , [place] 11-24-2020 10:30-0500 Pulse (Heart Rate) 78 /min Kashmir [employer] [place], [place] 11-24-2020 10:30-0500 Pulse Oximetry 91 % Kashmir [email or web address] [place] , [place] 11-24-2020 10:30-0500 Respiratory Rate 18 /min Kashmir [employer] [place] , [place] 11-24-2020 09:42-0500 Body Temperature 98.1 [degF] Kashmir [facility], [place] 11-24-2020 08:21-0500 BMI (Body Mass Index) 30.62 kg/m2 Kashmir [employer] [place], [place] 11-24-2020 08:21-0500 Body weight 83.46 kg Kashmir [employer] [place] , [place] 11-24-2020 08:21-0500 Height 165.1 cm [facility] [place] [facility] [place] 11-16-2020 08:02-0500 BMI (Body Mass Index) 30.67 kg/m2 [facility] [place] 11-16-2020 08:02-0500 Body Temperature 97.39 [degF] Kashmir [facility], [place] 11-16-2020 08:02-0500 Body weight 83.6 kg [facility] [place] 11-16-2020 08:02-0500 BP Diastolic 92 mm[Hg] [facility] [place] 11-16-2020 08:02-0500 BP Systolic 133 mm[Hg] [facility] [place] 11-16-2020 08:02-0500 Height 165.1 cm [facility] [place] 11-16-2020 08:02-0500 Pulse (Heart Rate) 98 /min [facility] [place] 11-16-2020 08:02-0500 Pulse Oximetry 95 % [facility] [place] 11-16-2020 08:02-0500 Respiratory Rate 22 /min [facility], [place] Encounters Encounter Date Encounter Type Care Provider Facility Start: 12-11-2024 End: 12-11-2024 ambulatory [facility] Work Phone: Start: 12-11-2024 End: 12-11-2024 Patient encounter procedure [facility] Work Phone: Start: 12-02-2024 End: 12-02-2024 ambulatory [facility] Work Phone: Start: 12-02-2024 End: 12-02-2024 Patient encounter procedure [facility] Work Phone: Start: 11-24-2024 Non-patient / Non-visit [facility] Work Phone: Start: 11-05-2024 End: 11-05-[address] [facility] Start: 11-05-2024 End: 11-05-2024 Subsequent hospital visit by physician Riya Sanchez OTR/L [facility] Occupational Therapy Comment on above: Arrived Start: 09-25-2024 End: 09-25-2024 ambulatory DO Narayan Gagnon Work Phone: [facility] Work Phone: Start: 09-25-2024 End: 09-25-2024 Patient encounter procedure DO Narayan Gagnon Work Phone: [facility] Work Phone: Start: 09-17-2024 End: 09-17-2024 ambulatory DO Narayan Gagnon Work Phone: [facility] Work Phone: Start: 09-17-2024 End: 09-17-2024 Patient encounter procedure DO Narayan Gagnon Work Phone: [facility] Work Phone: Start: 09-02-2024 Non-patient / Non-visit DO Chapin Gagnon Work Phone: [facility] Work Phone: Start: 09-01-2024 Patient encounter procedure DO Narayan Gagnon Work Phone: [facility] Start: 07-20-2024 End: 07-20-2024 Office outpatient visit 25 minutes Coco Hurtado DO Work Phone: [facility] Comment on above: Tremor Start: 07-20-2024 End: 07-20-2024 ambulatory [facility] Not Available Start: 07-20-2024 End: 07-20-2024 [employer]amboo [employer]sheet Christdereck Jeffreyett DO Work Phone: [facility] Start: 07-20-2024 End: 07-20-2024 Bamboo [employer]sheet Coco Jefferyett DO Work Phone: [facility] Start: 07-02-2024 End: 07-02-2024 Patient encounter procedure DO Narayan Gagnon Work Phone: [facility] [place] Work Phone: Start: 07-02-2024 End: 07-02-2024 ambulatory DO Narayan Gagnon Work Phone: [facility] Work Phone: Start: 06-24-2024 End: 06-24-2024 ambulatory DO Narayan Gagnon Work Phone: [facility] Work Phone: Start: 06-24-2024 End: 06-24-2024 Patient encounter procedure DO Narayan Gagnon Work Phone: [facility] Work Phone: Start: 06-11-2024 Non-patient / Non-visit DO Chapin Gagnon Work Phone: [facility] Work Phone: Start: 06-11-2024 End: 06-11-2024 ambulatory JU HOFFMANN Not Available Start: 05-15-2024 End: 05-15-2024 Patient encounter procedure DO Narayan Gagnon Work Phone: [facility] [place] Work Phone: Start: 05-15-2024 End: 05-15-2024 ambulatory DO Narayan Gagnon Work Phone: [facility] Work Phone: Start: 05-07-2024 End: 05-07-2024 ambulatory [facility] Start: 05-07-2024 End: 05-07-2024 Subsequent hospital visit by physician Kashmir Kelly DPM Work Phone: [facility] Start: 05-01-2024 End: 05-05-2024 ambulatory NARAYAN GAGNON [facility] Start: 05-01-2024 End: 05-05-2024 Subsequent hospital visit by physician Vane Pre Admit Test Rm [facility] PRE [facility]MIT Start: 04-16-2024 End: 04-16-2024 ambulatory JU HOFFMANN Not Available Start: 04-13-2024 Non-patient / Non-visit DO Chapin Gagnon Work Phone: [facility] Work Phone: Start: 03-12-2024 End: 03-12-2024 ambulatory [facility] Work Phone: Start: 03-12-2024 End: 03-12-2024 Patient encounter procedure [facility] Work Phone: Start: 01-23-2024 End: 01-23-2024 ambulatory Narayan Gagnon Other [employer] Other Start: 01-23-2024 Telephone encounter Narayan Gagnon [facility] Start: 01-23-2024 End: 01-23-2024 Patient encounter procedure [facility] Work Phone: Start: 01-21-2024 Non-patient / Non-visit [facility] Work Phone: Start: 01-03-2024 End: 01-03-2024 ambulatory Narayan Gagnon Other [employer] Other Start: 01-03-2024 Telephone encounter Narayan Gagnon [facility] Start: 12-23-2023 End: 12-23-2023 ambulatory Narayan Gagnon Other [employer] Other Start: 12-23-2023 Telephone encounter Narayan Gagnon [facility] Start: 12-18-2023 End: 12-18-2023 ambulatory Narayan Gagnon Other [employer] Other Start: 12-18-2023 Telephone encounter Narayan Gagnon [facility] Start: 12-09-2023 End: 12-09-2023 ambulatory Narayan Gagnon Other [employer] Other Start: 12-09-2023 Telephone encounter Narayan Ball [facility] Start: 12-03-2023 End: 12-03-2023 ambulatory MALINA BALLARD Not Available Start: 11-13-2023 End: 11-13-2023 ambulatory Narayan Gagnon Other [employer] Other Start: 11-13-2023 Telephone encounter Narayan Gagnon [facility] Start: 09-25-2023 End: 09-25-2023 ambulatory Narayan Gagnon Other [employer] Other Start: 09-25-2023 Telephone encounter Narayan Gagnon [facility] Start: 09-20-2023 End: 09-20-2023 ambulatory Narayan Gagnon Other [employer] Other Start: 09-20-2023 Patient encounter procedure Narayan Gagnon [facility] Start: 09-05-2023 End: 09-05-2023 ambulatory Narayan Gagnon Other [employer] Other Start: 09-05-2023 Telephone encounter Narayan Gagnon [facility] Start: 09-04-2023 End: 09-04-2023 ambulatory Narayan Gagnon Other [employer] Other Start: 09-04-2023 Telephone encounter Narayan Gagnon [facility] Start: 09-03-2023 End: 09-03-2023 ambulatory Narayan Gagnon Other [employer] Other Start: 09-03-2023 Telephone encounter Narayan Gagnon [facility] Start: 08-26-2023 End: 08-26-2023 ambulatory Narayan Gagnon Other [employer] Other Start: 08-26-2023 Telephone encounter Narayan Gagnon [facility] Start: 08-20-2023 End: 08-20-2023 ambulatory Narayan Gagnon Other [employer] Other Start: 08-20-2023 Telephone encounter Narayan Ball [facility] Start: 07-16-2023 End: 07-16-2023 ambulatory Narayan Gagnon Other [employer] Other Start: 07-16-2023 Telephone encounter Narayan Ball [facility] Start: 07-09-2023 End: 07-09-2023 ambulatory Narayan Ball Other [employer] Other Start: 07-09-2023 Telephone encounter Narayan Ball [facility] Start: 07-08-2023 End: 07-08-2023 ambulatory Narayan Gagnon Other [employer] Other Start: 07-08-2023 Telephone encounter Narayan Ball [facility] Start: 05-01-2023 End: 05-01-2023 ambulatory Narayan Gagnon Other [employer] Other Start: 05-01-2023 Telephone encounter Narayan Ball [facility] Start: 03-19-2023 End: 03-19-2023 ambulatory Narayan Gagnon Other [employer] Other Start: 03-19-2023 Telephone encounter Narayan Ball [facility] Start: 03-18-2023 End: 03-18-2023 ambulatory Narayan Gagnon Other [employer] Other Start: 03-18-2023 Telephone encounter Narayan Ball [facility] Start: 03-14-2023 End: 03-15-[address] NARAYAN GAGNON Facility:[facility] Start: 03-07-2023 End: 03-07-2023 ambulatory Narayan Ball Other [employer] Other Start: 03-07-2023 Telephone encounter Narayan Ball [facility] Start: 03-04-2023 End: 03-04-2023 ambulatory Narayan Ball Other [employer] Other Start: 03-04-2023 Office outpatient vi sit 25 minutes Narayan Ball [facility] Start: 02-19-2023 End: 02-19-2023 ambulatory Narayan Gagnon Other [employer] Other Start: 02-19-2023 Telephone encounter Narayan Ball [facility] Start: 02-15-2023 End: 02-15-2023 ambulatory Narayan Ball Other [employer] Other Start: 02-15-2023 Telephone encounter Narayan Ball [facility] Start: 02-13-2023 ambulatory HUANG BARRY Facility: Start: 02-11-2023 End: 02-11-2023 ambulatory Narayan Gagnon Other [employer] Other Start: 02-11-2023 Telephone encounter Narayan Ball [facility] Start: 02-08-2023 Office outpatient vi sit 25 minutes Narayan Ball [facility] Start: 02-08-2023 Telephone encounter Narayan Gagnon [facility] Start: 02-08-2023 End: 02-09-[address] STACY LAWSON [employer] Other Start: 01-02-2023 End: 01-03-2023 ambulatory Sylvester FITZPATRICK Facility[place] Start: 01-02-2023 End: 01-02-2023 Patient encounter procedure Sylvester FITZPATRICK [facility] Start: 12-24-2022 End: 12-25-2022 ambulatory Sue Qureshi Facility:[facility] Start: 12-20-2022 End: 03-01-[address] MALINA BALLARD Facility: Start: 11-01-2022 End: 11-02-2022 ambulatory Sue Qureshi Facility:[facility] Start: 11-01-2022 End: 11-02-2022 ambulatory Sue Qureshi Facility:[facility] Start: 11-01-2022 End: 11-01-2022 Patient encounter procedure Sue Qureshi [facility] Start: 11-01-2022 End: 11-02-[address] NARAYAN GAGNON Facility:[facility] Start: 09-28-2022 ambulatory Sue Qureshi Facility :[facility] Start: 09-23-2022 Pre-procedure evalua tion check Narayan Gagnon Other [facility] [employer] Other Start: 09-20-2022 End: 09-21-2022 ambulatory Lesly Baeza Facility[facility] Start: 09-20-2022 End: 09-20-2022 Patient encounter procedure Lesly Baeza [facility] Start: 06-25-2022 End: 06-25-2022 Emergency department patient visit Narayan Gagnon Work Phone: [facility] Comment on above: Acute upper respirat ory infection (Primary Dx) Start: 06-15-2022 End: 06-16-[address] NARAYAN GAGNON Facility:[facility] Start: 05-17-2022 End: 05-18-2022 [facility] Start: 05-16-2022 End: 05-17-2022 Emergency department patient visit Narayan Gagnon DO Work Phone: [facility] Comment on above: Suicidal ideation (P rimary Dx); Homicidal ideations Start: 01-26-2022 End: 01-27-2022 ambulatory Malina Ballard Facility:[facility] Start: 01-22-2022 End: 01-22-2022 ambulatory Malina Ballard Facility:[facility] Start: 11-23-2021 End: 11-27-2021 Subsequent hospital visit by physician Kashmir Kelly DPM Work Phone: [facility] Start: 11-24-2020 End: 11-24-2020 Subsequent hospital visit by physician Kashmir Kelly Work Phone: [facility] Start: 11-17-2020 End: 11-21-2020 Subsequent hospital visit by physician Vane Diaz19 Pat Screening Schedule [facility] Comment on above: Preoperative testing Start: 11-17-2020 End: 11-19-2020 Subsequent hospital visit by physician Vane Mri Scanner [facility] MRI Comment on above: Nonintractable heada cristal, unspecified chronicity pattern, unspecified headache type; 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; Alternating exotropia; Diplopia; Dysfunction of both inferior oblique muscles Start: 11-16-2020 End: 11-20-2020 Subsequent hospital visit by physician Kashmir Kelly Work Phone: [facility] Start: 03-04-2018 End: 03-05-2018 Ambulatory DEFAULT PHYSICIAN Facility:[facility] Start: 02-28-2018 End: 03-01-2018 Ambulatory DEFAULT PHYSICIAN Facility:[facility] Procedures Date Procedure Procedure Detail Performing Clinician Start: 07-02-2024 CT angiography of head DO Narayan Ball Work Phone: Start: 07-02-2024 CT angiography of neck vessels DO Benjam in [employer] Work Phone: Start: 05-15-2024 MRI of head DO Narayan Ball Work Phone: Start: 05-07-2024 GLUCOSE, WHOLE BLOOD Kashmir Kelly DPM Work Phone: Start: 05-01-2024 Basic metabolic panel calcium total Kashmir Kelly DPM Work Phone: Start: 05-01-2024 Ecg routine ecg w/least 12 lds i&r only Kashmir Kelly DPM Work Phone: Start: 01-02-2023 Colonoscopy Coco Hurtado DO Work Phone: Start: 01-02-2023 Colonoscopy Phan SALNATHANIEL Start: 01-02-2023 Esophagogastroduodenoscopy Phan SALAM Start: 06-25-2022 Radiologic exam chest single view Atul Aguilar PA-C Work Phone: Start: 08-01-2022 COVID-19, RAPID Ebony Menezes Rosado DO Work Phone: Start: 05-16-2022 Radiologic exam chest single view Sona Pepper SENIOR BUSINESS ANALYST - MICROBIOLOGY TECHNOLOGIST Work Phone: Start: 05-16-2022 Assay of acetaminophen Abi Pepper SENIOR BUSINESS ANALYST - MICROBIOLOGY TECHNOLOGIST Work Phone: Start: 05-16-2022 Assay of ethanol Abi Pepper SENIOR BUSINESS ANALYST - MICROBIOLOGY TECHNOLOGIST Work Phone: Start: 05-16-2022 Assay of salicylate Abi Pepper SENIOR BUSINESS ANALYST - MICROBIOLOGY TECHNOLOGIST Work Phone: Start: 05-16-2022 Comprehensive metabolic panel Abi Pepper SENIOR BUSINESS ANALYST - MICROBIOLOGY TECHNOLOGIST Work Phone: Start: 05-16-2022 Drug tst prsmv instrmnt chem analyzers pr date Abi Pepper SENIOR BUSINESS ANALYST - MICROBIOLOGY TECHNOLOGIST Work Phone: Start: 05-16-2022 COVID-19, RAPID Abi Pepper SENIOR BUSINESS ANALYST - MICROBIOLOGY TECHNOLOGIST Work Phone: Start: 05-16-2022 Ecg routine ecg w/least 12 lds i&r only Abi Pepper SENIOR BUSINESS ANALYST - MICROBIOLOGY TECHNOLOGIST Work Phone: Start: 01-22-2022 Total knee replacement [...] w/least 12 lds i&r only Kashmir Kelly Work Phone: Start: 11-16-2020 EKG REPORT Hpf Scanning Start: 11-16-2020 Basic metabolic panel calcium total Kashmir Kelly Work Phone: Start: 11-16-2020 Blood count complete automated Kashmir Lombardi [employer] Work Phone: Start: 07-28-2020 Hydrocelectomy Lesly Timmis Start: 02-25-2018 Preoperative cardiovascular examination Narayan Ball Other Arthroscopy of knee Lesly T immis [...] Screening for malign ant neoplasm of colon [facility] Start: 09-03-2026 DTaP/Tdap/Td vaccine (4 - Td or Tdap) DTaP/Tdap/Td vaccine (4 - Td or Tdap) [facility] Start: 05-01-2025 GFR test (Diabetes, CKD 3-4, OR last GFR 15-59) GFR test (Diabetes, CKD 3-4, OR last GFR 15-59) [facility] Start: 07-26-2024 COVID-19 Vaccine ( season) COVID-19 Vaccine ( season) [facility] Start: 07-26-2024 Influenza vaccination Influenza Vacc ine (#1) [facility] Start: 07-20-2024 End: 07-20-2024 Patient encounter procedure 07/20/2024 3:15 PM EDT Office Visit [facility] [address] [place] [id number] Coco Hurtado DO [address] [place] [address] Arrived [facility] Comment on above: Arrived Start: 05-07-2024 End: 05-07-2024 Admission to same day surgery center 05/07/2024 8:30 AM EDT - 05/07/2024 9:15 AM EDT Surgery [facility] [address] [place], [place] [id number] Kashmir Kelly, DPM [address] [place] [address] NAILBED EXCISION MATRIXECTOMY- DIGITS 1,4,5 [facility] Comment on above: NAILBED EXCISION MAT RIXECTOMY- DIGITS 1,4,5 Start: 05-07-2024 End: 05-07-2024 Anesthesia consultation 05/07/2024 8:30 AM EDT Anesthesia Event [facility] [address] [place], [place] [id number] Janna Love, SENIOR BUSINESS ANALYST - POLE FRAMER MACHINE [address] [facility] [address] [place] [address] [facility] Start: 05-07-2024 End: 05-07-2024 Excision nail matrix permanent removal [facility] Start: 05-07-2024 Subsequent hospital visit by physician 05/07/2024 8:30 AM EDT Hospital Encounter [facility] [address] [place], [place] [id number] Kashmir Kelly, DPM [address] [place] [address] [facility] Start: 2024 DTaP/Tdap/Td vaccine (2 - Td or Tdap) DTaP/Tdap/Td vaccine (2 - Td or Tdap) [facility] Start: 2024 DTaP/Tdap/Td vaccine (2 - Td) DTaP/Tdap/Td vaccine (2 - Td) [place] Start: 10-21-2023 Annual Wellness Visi t (Medicare) Annual Wellness Visit (Medicare) [facility] Start: 07-26-2023 COVID-19 Vaccine ( season) COVID-19 Vaccine ( season) [facility] Start: 2023 Shingles vaccine (1 of 2) Shingles vaccine (1 of 2) [facility] Start: 11-23-2022 Creatinine measurement Creatinine mo [facility] Start: 11-23-2022 Hemoglobin A1c measurement A1C test (Diabetic or Prediabetic) [facility] Start: 11-23-2022 Potassium monitoring Potassium monit oring [facility] Start: 07-26-2022 Influenza vaccination [facility] Start: 02-21-2022 Hemoglobin A1c measurement A1C test (Diabetic or Prediabetic) [facility] Start: 11-30-2021 End: 11-30-2021 Admission to same day surgery center 11/30/2021 Surgery IP Unit Kashmir Kelly DPM [address] [place] [address] NAILBED EXCISION MATRIXECTOMY-HALLUX [facility] Comment on above: NAILBED EXCISION MAT RIXECTOMY-HALLUX Start: 11-30-2021 End: 11-30-2021 Excision nail matrix permanent removal NAILBED EXCISION MATRIXECTOMY CHRONIC INGROWNS 11/30/2021 8:[address] [facility] Start: 11-30-2021 Subsequent hospital visit by physician 11/30/2021 Hospital Encounter IP Unit Kashmir Kelly DPM [address] [place] [address] [facility] Start: 11-16-2021 Creatinine measurement Creatinine mo [place], [place] Start: 11-16-2021 Potassium monitoring Potassium monit oring [place], [place] Start: 10-01-2021 COVID-19 Vaccine (3 - Booster for Pfizer series) COVID-19 Vaccine (3 - Booster for Pfizer series) [facility] Start: 08-31-2021 COVID-19 Vaccine (3 - Booster for Pfizer series) COVID-19 Vaccine (3 - Booster for Pfizer series) [facility] Start: 07-26-2021 Influenza vaccination Flu vaccine (# 1) [facility] Start: 11-24-2020 End: 11-24-2020 Hospital Encounter [facility] Comment on above: FOOT LESION BIOPSY E XCISION, PLANTAR Start: 11-17-2020 Annual Wellness Visi t (AWV) Annual Wellness Visit (AWV) [place] Start: 07-26-2020 Influenza vaccination Flu vaccine (# 1) [place], [place] Start: 2018 Screening for malign ant neoplasm of colon [facility] Start: 2013 Diabetes screen Diabetes screen [place], [place] Start: 2008 Diabetes screen Diabetes screen [facility] Start: 08-06-2002 Pneumococcal 0-64 ye ars Vaccine (2 of 2 - PCV) Pneumococcal 0-64 years Vaccine (2 of 2 - PCV) [facility] Start: 1992 Hepatitis B vaccine (1 of 3 - 19+ 3-dose series) Hepatitis B vaccine (1 of 3 - 19+ 3-dose series) [facility] Start: 1992 Hepatitis B vaccine (1 of 3 - Risk 3-dose series) Hepatitis B vaccine (1 of 3 - Risk 3-dose series) [facility] Start: 1991 Diabetic retinal exam Diabetic retin al exam [facility] Start: 1991 Glaucoma screening Diabetic retinal exam [facility] Start: 1991 Hepatitis C screening Hepatitis C sc reen [facility] Start: 1991 Urine screening for protein [facility] Start: 1988 HIV screening HIV screen [facility] Start: 1985 Depression Monitoring Depression Mon itoring [facility] Start: 1985 Depression Screen Depression Screen [facility] Start: 1983 Diabetic foot examination Diabetic foot exam [facility] Start: 1983 Lipid panel [facility] Start: 1979 Pneumococcal 0-64 ye ars Vaccine (1 - PCV) Pneumococcal 0-64 years Vaccine (1 - PCV) [facility] Start: 1973 Hepatitis B vaccine (1 of 3 - 3-dose series) Hepatitis B vaccine (1 of 3 - 3-dose series) [facility] Start: 1973 Hepatitis C screening Hepatitis C sc reen [facility] Start: 1973 Screening for malign ant neoplasm of colon [facility] End: 11-23-2021 Culture, Urine [facility] [employer] Phone: Comment on above: Once for 1 Occurrenc es starting 11/23/2021 until 11/23/2021 End: 05-07-2024 Glucose [Mass/volume] in Serum or Plasma POCT Glucose Point of Care Testing Routine One Time for 1 Occurrences starting 05/07/2024 until 05/07/2024 [facility] Work Phone: Comment on above: One Time for 1 Occur rences starting 05/07/2024 until 05/07/2024 End: 11-24-2020 POCT Glucose POCT Glucose Point of Care Testing STAT One Time for 1 Occurrences starting 11/24/2020 until 11/24/2020 [place], [place] Comment on above: One Time for 1 Occur rences starting 11/24/2020 until 11/24/2020 Surgical Pathology Surgical Path ology Lab Routine Release Upon Ordering for 1 Occurrences starting 11/24/2020 [place] Comment on above: Release Upon Orderin g for 1 Occurrences starting 11/24/2020 [facility] Immunizations Immunization Date Immunization Notes Care Provider Fa martha 09-25-2024 influenza, seasonal, injectable, preservative free DO Narayan Gagnon Work Phone: [facility] 09-20-2023 influenza, injectabl e, quadrivalent, preservative free Narayan [employer] Other [facility] 09-20-2023 influenza virus vaccine, unspecified formulation Coco Hurtado DO Work Phone: [facility] 09-20-2022 influenza virus vaccine, split virus (incl. purified surface antigen) Narayan Gagnon Other [employer] Other 09-20-2022 influenza virus vaccine, unspecified formulation Suecarlyn MathisKiera [facility] 03-31-2021 SARS-CoV-2 (COVID-19 ) mRNA BNT-162b2 vax Sue Mathismetz [facility] 12-17-2020 SARS-CoV-2 (COVID-19 ) mRNA BNT-162b2 vax Suecarlyn Qureshi [facility] Comment on above: Result Comment: 2021: [id number] 08-26-2020 influenza virus vaccine, split virus (incl. purified surface antigen) Narayan Gagnon Other [facility] [employer] Other 08-26-2020 influenza virus vaccine, unspecified formulation [facility] 09-07-2019 influenza virus vaccine, unspecified formulation Sue Mathismetz [facility] 09-01-2019 influenza virus vaccine, split virus (incl. purified surface antigen) Narayan Gagnon Other [employer] Other 09-01-2019 influenza virus vaccine, unspecified formulation [facility] 08-15-2018 influenza virus vaccine, split virus (incl. purified surface antigen) Narayan Gagnon Other [facility] [employer] Other 08-15-2018 influenza virus vaccine, unspecified formulation [facility] 08-13-2018 influenza virus vaccine, split virus (incl. purified surface antigen) Narayan Gagnon Other [employer] Other 08-13-2018 influenza virus vaccine, unspecified formulation Sue Mathismetz [facility] 09-03-2016 influenza virus vaccine, unspecified formulation Sue Garciaz [facility] 09-03-2016 tetanus and diphther ia toxoids, adsorbed, preservative free, for adult use (5 Lf of tetanus toxoid and 2 Lf of diphtheria toxoid) Narayan Gagnon Other [facility] 09-14-2014 tetanus and diphther ia toxoids, adsorbed, preservative free, for adult use (5 Lf of tetanus toxoid and 2 Lf of diphtheria toxoid) Narayan Gagnon Other [facility] 2014 tetanus toxoid, reduced diphtheria toxoid, and acellular pertussis vaccine, adsorbed Sue Mathismetz [facility] 09-17-2013 tetanus and diphther ia toxoids, adsorbed, preservative free, for adult use (5 Lf of tetanus toxoid and 2 Lf of diphtheria toxoid) Narayan Gagnon Other [facility] 08-06-2001 pneumococcal polysaccharide vaccine, 23 valent Narayan Gagnon Other [facility] Payers Date Payer Category Payer Self-pay [id number] 2019 Medicaid MEDICAID [facility] [id number] 2019-Present [phone] [address] [place] [address] Medicaid [id number] 2000 Medicare MEDICARE MEDICAR E PART B [id number] 2000-[place] [address] Medicare [id number] 1973 Unknown [id number] [id number]6 1973 Unknown [id number] 2.16.840.1.094980.3.579.2.727 1973 Unknown [id number] 2.16.840.1.154325.3.579.2.72 1973 Unknown [id number] 2.16.840.1.818877.3.579.2727 1973 Unknown [id number] 2.16.840.1.319107.3.579.2.72 1973 Unknown [id number] 2.16.840.1.262232.3.579.2727 1973 Unknown [id number] 2.16.840.1.867665.3.579.272 1973 Unknown [id number] 2.16840.1.945413.3.579.272 1973 Unknown [id number] 2.16840.1.221865.3.579.272 1973 Unknown [id number] 2.16840.1.392648.3.579.2.59 1973 Unknown [id number] 2.16840.1.467961.3.579.259 1973 Unknown [id number] 2.16.840.1.134440.3.579.2.59 1973 Unknown [id number] 2.16.840.1.438548.3.579.2.59 1973 Unknown [id number] 2.16.840.1.966880.3.579.2.593 1973 Unknown [id number] 2.16.840.1.677944.3.579.2.59 1973 Unknown [id number] 2.16.840.1.699814.3.579.2.593 1973 Unknown [id number] 2.16.840.1.293355.3.579.2.59 1973 Unknown [id number] 2.16.840.1.812855.3.579.2.1259 1973 Unknown [id number] 2.16.840.1.900206.3.579.2.9 1973 Unknown [id number] 2.16.840.1.708325.3.579.2.9 1973 Unknown [id number] 2.16.840.1.205939.3.579.2.9 1973 Unknown [id number] 2.16.840.1.569866.3.579.2.1259 1973 Unknown [id number] 2.16.840.1.359735.3.579.2.173 1973 Unknown [id number] 2.16.840.1.888721.3.579.2.173 1973 Unknown [id number] 2.16.840.1.548894.3.579.2.173 1959 Medicaid [id number] 1.2.840.331519.1.13.239.2.7.3.6 [id number] 1959 Medicare [id number] [id number] [id number] Medicare Medicare Psych-IP Part A [id number] Unknown Unknown [id number] 2.16.840.1.002191.3.579.2.531 Unknown [id number] 2.16.840.1.577977.3.579.2.531 Social History Date Type Detail Facility Start: 07-30-2014 End: 11-16-2020 Tobacco smoking status NHIS Former smoker [place], [place] Start: 11-16-2020 End: 05-07-2023 Tobacco use and exposure Never used [place] Start: 11-16-2020 End: 05-12-2024 Alcohol intake Current non-drinker of alcohol (finding) [place], [place] Start: 1975 Sex Assigned At Not on file [place] Start: 05-06-2022 End: 05-16-2022 Exposure to SARS-CoV-2 (event) Not sure [place] Start: 05-17-2022 End: 05-18-2022 History SDOH Alcohol Frequency 1 [employer] Work Phone: History of tobacco use Current smoker [employer] Phone: Start: 05-18-2022 History SDOH Alcohol Std Drinks 98 [employer] Phone: Start: 06-15-2022 End: 06-25-2022 Exposure to SARS-CoV-2 (event) Yes [employer] Phone: Start: 04-30-2018 End: 10-28-2020 Tobacco smoking status Never smoked tobacco (finding) [facility] Start: 05-18-2022 End: 07-20-2024 Sex Assigned At Male [facility] Tobacco smoking status Never [facility] Start: 1975 Sex Assigned At Male [facility] Start: 05-18-2022 End: 07-20-2024 History of Social function [employer] How often to you hav e a drink containing alcohol? Never [facility] [employer] Start: 06-11-2024 End: 07-20-2024 Alcoholic beverage intake Lifetime non-drinker (finding) [facility] Start: 05-10-2023 Alcohol Comment caffeine: >4 c ups per day [facility] Start: 12-02-2024 End: 12-11-2024 Sex Male (finding) [facility] Medical Equipment Procedure Code Equipment Code Equipment Origin al Text Equipment Identifier Dates KNEE TOTAL ARTHROPLASTY Malina Ballard DO Jennie 01/22/22 Non Biological Knee R {[id number] [id number]} [id number] FDA Start: 01-22-2022 Start: 07-16-2023 Blood Sugar [...] (Thin La ncets) 26 gauge misc Start: 09-21-2024 Blood Sugar Diag nostic (True Metrix Glucose Test Strip) strip Start: 01-21-2024 End: 01-21-2024 Lancets Start: 01-21-2024 End: 01-21-2024 Lancets Start: 01-21-2024 End: 01-21-2024 Lancets Start: 01-21-2024 End: 01-23-2024 Lancets Start: 04-08-2024 End: 04-13-2024 Lancets (Thin La ncets) 26 gauge misc Start: 04-13-2024 End: 09-21-2024 Lancets (Trueplu s Lancets) 33 gauge misc Start: 01-23-2024 End: 04-08-2024 Blood Sugar Diag nostic (True Metrix Glucose Test Strip) strip Start: 01-21-2024 Lancets (Thin La ncets) 26 gauge misc Start: 09-21-2024 Lancets 26 gauge misc Sta rt: 04-13-2024 Blood Sugar Diag nostic (True Metrix Glucose Test Strip) strip Start: 01-21-2024 End: 01-21-2024 Lancets (Thin La ncets) 26 gauge misc Start: 04-13-2024 End: 09-21-2024 Lancets (Trueplu s Lancets) 33 gauge misc Start: 01-23-2024 End: 04-08-2024 Lancets 26 gauge misc Sta rt: 01-21-2024 End: 01-21-2024 Lancets 26 gauge misc Sta rt: 01-21-2024 End: 01-21-2024 Lancets 26 gauge misc Sta rt: 01-21-2024 End: 01-23-2024 Lancets misc Start: 04-08-2024 End: 04-13-2024 Blood Sugar Diag nostic (True Metrix Glucose Test Strip) strip Start: 01-21-2024 Lancets (Thin La ncets) 26 gauge misc Start: 09-21-2024 Lancets 26 gauge misc Sta rt: 04-13-2024 Blood Sugar Diag nostic (True Metrix Glucose Test Strip) strip Start: 01-21-2024 End: 01-21-2024 Lancets (Thin La ncets) 26 gauge misc Start: 04-13-2024 End: 09-21-2024 Lancets (Trueplu s Lancets) 33 gauge misc Start: 01-23-2024 End: 04-08-2024 Lancets 26 gauge misc Sta rt: 01-21-2024 End: 01-21-2024 Lancets 26 gauge misc Sta rt: 01-21-2024 End: 01-21-2024 Lancets 26 gauge misc Sta rt: 01-21-2024 End: 01-23-2024 Lancets misc Start: 04-08-2024 End: 04-13-2024 Functional Status Date Assessment Result Facility 01-02-2023 Functional Status N/A [facility] 11-01-2022 [facility] Clinical Notes 11-23-2021 to 09-17-2024 Note Date & Type Note Facility 09-17-2024 Evaluation note Diagnosis Onset Date Resolution Depression, major, recurrent, mild acute September 17, 2024 10:54am Essential hypertension acute Oc tober 2023 10:54am Hypercholesterolemia acute 2023 10:54am Irritable bowel syndrome with both constipation and diarrhea acute September 17, 2024 10:54am Medicare annual wellness visit, subsequent acute September 17, 2024 10:54am Obstructive sleep apnea acute O ctober 2023 10:54am Screening PSA (prostate specific antigen) acute September 17, 2024 10:54am 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 Mother states he is only upto eat. He has no motivation to do [...] Chronic pansinusitis Class 1 obesity 03/07/2017 Depression ([facility]) Diabetes mellitus, type 2 ([facility]) Diverticulitis Dysfunction of both eustachian tubes Dysphagia 07/02/2023 Dysuria 07/02/2023 Heartburn 07/02/2023 History of cholesteatoma History of colon polyps 07/02/2023 History of medical problems renal reflux Hypertension (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) Past Surgical History: Procedure Laterality Date [...] testicle OTHER SURGICAL HISTORY 2019 RT T-tube NV DRAIN/INJECT LARGE JOINT/BURSA Right knee joint WEEKS [...] wrist extensors , wrist flexor , and chuck wagon driver strength 5/5. LUE strength deltoid , biceps , triceps , wrist extensors , wrist flexor , and chuck wagon driver strength 5/5. RLE strength illopsoas, quadriceps, tibialis [...] reflex 1+. LLE knee reflex 1+. Coordination: Ikvvuw-sd-molc testing normal aside from tremor. Rapid alternating movements normal with finger tapping. Mild bradykinesia with pronation/supinationof the bilateral hands. Gait: Slightly stooped posture with decreased arm swing bilaterally. Review and summary of old records: CTA head [place] 07/02/24 at [facility]: no evidence of occlusion, aneurysm or dissection. No evidence of intracranial stenosis. LDL: 76 B12 and thyroid stimulating hormone on 06/11/2024: Normal MRI of the brain w and w/o contrast at [facility] on 05/15/24: No acute intracranial pathology. There is aremote lacunar infarct in the right deep ngo nuclei. No abnormal postcontrast enhancement. Mild chronic age-related neurodegenerative changes. There is mild diffuse cortical atrophy. There are a fewperiventricular and subcortical white matter T2 and FLAIR hyperintense foci suggesting mild chronicmicrovascular ischemic change. Labs at [facility] on 10/03/20: generally unremarkable with Depakene level 72.2 (WNL) MRI of the orbits, face, and neck w and w/o contrast at [facility] on 11/17/20: Old right basal ganglia lacune. [...] the lacunar infarct could have been contributory tohis cognitive symptoms. B12 and thyroid stimulating hormone [...] (PT). He has not performed any PT exercisesat home since, and I suspect he has [...] new or worsening symptoms. documented in this encounterSaint [facility] [id number] History of Present illness Narrative* Ju Paulino RN - 05/07/2024 10:03 AM EDT Discharge Criteria Inpatients must meet Criteria 1 [...] a responsible adult. Yes [facility] Discharge instructions* Discharge Instructions* Ju Paulino RN - 05/07/2024 9:39 AM [...] Vinegar in warm water, soak for 10-15 minutes.Dry well, then apply Neosporin and bandage. Soak once a day for 14 days. [facility] of Present illness Narrative* Cordelia Kumar RN - 05/01/2024 10:00 AM EDT Pt's mother instructed on the pre-operative, intra-operative, and post-operative process. Medication instructions and pre operative instruction sheet reviewed. Pt to be NPO after midnight and may take Verapamil, Divalproex and Clonazepam with a small sip of water AM of procedure. CHG skin prep instructions reviewed.EKG completed. * Cordelia Kumar RN - 05/01/2024 10:00 AM EDT [facility] Preadmission Testing Name: Hari Thornton : 1975 Patient (home) [phone] (work) Procedure Right foot matriectomies Date of [...] patient in PAT? Yes documented in this encounterB[facility] Evaluation note* Encounter Date Diagnosis Assessment Notes Treatment Notes Treatment Clinical Notes Oct, Irritable bowel syndrome with diarrhea (ICD-10 - K58.0) [facility] Other 10-27-2023 Evaluation note* Encounter Date Diagnosis [...] use, the patient reduces the risk for SC, CVA, HTN, cardiac dysrhythmias and sudden cardiac [...] specific antigen) (ICD-10 - Z12.5) Yearly PSA [facility] Other 10-12-2023 Evaluation note* Encounter Date Diagnosis Assessment Notes Treatment Notes Treatment Clinical Notes Aug, Hyperlipidemia, mixed (ICD-10 - E78.2) Aug, Essential hypertension (ICD-10 - I10) [facility] Other 10-10-2023 Evaluation note* Encounter Date Diagnosis Assessment Notes Treatment Notes Treatment Clinical Notes Aug, Essential hypertension (ICD-10 - I10) Aug, Hyperlipidemia, mixed (ICD-10 - E78.2) [facility] Other 08-15-2023 Evaluation note* Encounter Date Diagnosis Assessment Notes Treatment Notes Treatment Clinical Notes Jun, Type 2 diabetes mellitus with hyperglycemia, without long-term current use of insulin (ICD-10 - E11.65) [facility] Other 04-25-2023 Evaluation note* Encounter Date Diagnosis Assessment Notes Treatment Notes Treatment Clinical Notes Feb, Type 2 diabetes mellitus with hyperglycemia, without long-term current use of insulin (ICD-10 - E11.65) [facility] Other 04-10-2023 Evaluation note* Encounter Date Diagnosis [...] use, the patient reduces the risk for SC, CVA, HTN, cardiac dysrhythmias and sudden cardiac [...] sun, spicy foods. Begin Metrocre[employer] f/u Dermatology [facility] Other 03-28-2023 Evaluation note* Encounter Date Diagnosis Assessment Notes Treatment Notes Treatment Clinical Notes Jan, Essential hypertension (ICD-10 - I10) Jan, Hyperlipidemia, mixed (ICD-10 - E78.2) [facility] Other 03-28-2023 Evaluation note* Encounter Date Diagnosis Assessment Notes Treatment Notes Treatment Clinical Notes Jan, Essential hypertension (ICD-10 - I10) [facility] Other 2023 Evaluation note* Encounter Date Diagnosis Assessment Notes Treatment Notes Treatment Clinical Notes Jan, Essential hypertension (ICD-10 - I10) Jan, Hyperlipidemia, mixed (ICD-10 - E78.2) [facility] Other 03-17-2023 Evaluation note* Encounter Date Diagnosis Assessment Notes Treatment Notes Treatment Clinical Notes Jan, Chronic fatigue (ICD-10 - R53.82) [facility] Other 03-17-2023 Evaluation note* Encounter Date Diagnosis [...] of fatigue, depression etc as well as manager terminal benefit w/ reducing risk for AF, CVA, SC Jan, Moderate episode of recurrent major depressive disorder (ICD-10 - F33.1) Healthy diet, increase activity, consistent sleep routine. f/u Psych Jan, Diarrhea, unspecified type (ICD-10 - R19.7) Likely diet and medication related. Await labs to r/o hepatic, renal involvement. May need to taper GLP-1 Avoid milk, juices and sauce. Increase yogurt, bananas and cheese [facility] Other 02-09-2023 Note [id number]:127[facility] 01-02-2023 NoteEndoscopy Care After Procedure Please read the instructions outlined below and refer to this sheet in the next few weeks. These discharge instructions provide you with general information on [facility] Your doctor may also give you [...] Document Re-Released: 05/05/2007 ExitCare? Patient Information ?2009 [employer]. Colonoscopy Care After Surgery Please read the instructions outlined below and refer to this sheet in the next few weeks. These discharge instructions provide you with general information on [facility] Your doctor may also give you [...] including vitamins, herbs, eye drops, creams, and klra-gdh-idcgfbb medicines. ? Any problems you or family members have had with anesthetic medicines. ? Any blood disorders you have. ? Any surgeries you have had. ? Any medical conditions you have. ? (more content not included)...[facility]02-08-2023 Hospital Discharge instructions Patient Education 01/02/2023 12:59:37 Endoscopy, Care After Procedure [facility] Endoscopy Care After Procedure Please read the instructions outlined below and refer to this sheet in the next few weeks. These discharge instructions provide you with general information on [facility] Your doctor may also give you [...] blood. Document Released: 06/25/2005 Document Re-Released: 05/05/2007 [employer] Patient Information [employer]. 01/02/2023 12:59:37 Esophageal Dilatation Esophageal Dilatation Esophageal [...] including vitamins, herbs, eye drops, creams, and nuvv-mnf-mzduhbl medicines. Any problems you or family members [...] home. Follow these instructions at home: Take ougw-fjp-jpxxmul and prescription medicines only as told by [...] 01/02/2007 Document Revised: 10/24/2018 Document Reviewed: 09/16/2018 [employer] Patient Education 2020 [employer]. 01/02/2023 12:59:37 Colonoscopy, Care After Surgery Salam [...] worse throughout the day. 01/02/2023 12:59:37 Diverticulitis, Hbut-oy-Cvih Diverticulitis Diverticulitis is when small pockets in your large intestine (colon) get infected or swollen. This causes stomach pain and watery poop (diarrhea). These pouches are called diverticula. They form in people who have a condition called diverticulosis. Follow these instructions at home: Medicines Take smyt-nrd-zakjoxi and prescription medicines only as told by [...] 04/29/2009 Document Revised: 10/24/2018 Document Reviewed: 11/28/2017 [employer] Patient Education 2020 [employer]. 01/02/2023 12:59:37 Colon Polyps Colon Polyps Polyps [...] 08/07/2005 Document Revised: 02/26/2019 Document Reviewed: 02/26/2019 [employer] Patient Education 2020 [employer]. 01/02/2023 12:59:37 Hemorrhoids, Nwgu-gm-Gjod Hemorrhoids Hemorrhoids are swollen veins that may [...] 3 times a day. General instructions Take rjcl-gco-iuxsbyn and prescription medicines only as told by [...] 08/20/2009 Document Revised: 11/19/2019 Document Reviewed: 04/02/2019 [employer] Patient Education 2019 [employer]. Follow Up Care 11/01/2022 13:05:57 With:Sylvester FITZPATRICK Address: [address] [place], [place] [address]. [address] [place] [address] Business (1) When: Unknown Comments:Call for any problems. Office will call for follow up appt [facility]02-08-2023 Evaluation + Plan noteExtracted from: Title:ANES Post-operative Note Author:Keyon Ramey MD Date:01/02/23 Plan Transfer/Discharge: Transfer/Discharge Discharge when meets criteria ( To home ). Extracted from: Title:ANES Pre-operative Note Author:Tanvir ANN, R sydnee S. Date:01/02/23 Plan [place] [employer] Anesthesiologists (ASA) physical status classification: Class III. Anesthetic Preoperative Plan: Anesthesia Monitored anethesia care. [facility]12-08-2022 Hospital Discharge instructions Patient Education 11/01/2022 12:01:38 [...] including vitamins, herbs, eye drops, creams, and yfvr-cze-ynvwkph medicines. Any problems you or family members [...] 11/08/2001 Document Revised: 09/03/2018 Document Reviewed: 01/22/2017 [employer] Patient Education 2020 [employer]. Follow Up Care 09/28/2022 10:36:04 With:Sue Qureshi CNP Address: When:1 to 2 weeks Comments:Following colonoscopy. [facility] [id number] Note [id number]:127[facility] 02-13-2022 [id number]:127[facility]12-30-2021 History of Present illness Narrative* Gabriella Grimaldo RN - 11/23/2021 9:00 AM EST Anesthesia to review pt's EKG pre op * Gabriella Grimaldo RN - 11/23/2021 9:00 AM EST [facility] Preadmission Testing Name: Hrai Thornton : 1975 Patient (home) [phone] (work) Procedure AKUA HALLUX MATRIECTOMY Date of [...] have an advance directive for healthcare treatment Technical Maintenance Technician needed: No Patient can read and [...] instructions reviewed with patient. [facility] Phone: evaluation + Plan note No data available for this section [facility] Future Appointments Appointment Date:01/02/2023 12:40:00 PM Scheduled Provider: Location:[facility] Appointment Type:Surgery FT Future Scheduled Tests Laboratory* Fecal WBC Lactoferrin 11/01/22 * Giardia lamblia, Direct Detection EIA 11/01/22 * O & P Exam, Routine 11/01/22 * Clostridium Difficile PCR 11/01/22 * Enteric Panel by PCR 11/01/22 [facility] Evaluation note* Diagnosis Suicidal ideation- Primary Homicidal ideations Homicidal ideation documented in this encounter [facility] [employer] Work Phone: evaluation note* Diagnosis Acute upper respiratory infection- Primary Acute upper respiratory infections of unspecified site documented in this encounter [facility] [employer] Work Phone: evaluation noteNo [facility] [place] [employer] Other Evaluation note* Diagnosis Onset Date Resolution Status Constipation due to slow transit acute Controlled type 2 diabetes mellitus with hyperglycemia acute Depression, major, recurrent, mild acute Essential hypertension acute Obstructive sleep apnea acut e Seborrheic dermatitis of scalp acute Stanley syndrome acute Cellulitis of finger of right hand acute [facility] Work Phone: Evaluation note* Diagnosis Onset Date Resolution Status Cellulitis of finger of right hand acute [facility] Work Phone: Evaluation note* Diagnosis Onset Date Resolution Status Constipation due to slow transit acute Controlled type 2 diabetes mellitus with hyperglycemia acute Depression, major, recurrent, mild acute Essential hypertension acute Obstructive sleep apnea acut e Stanley syndrome acute [facility] Work Phone: Evaluation note* Diagnosis Onset Date Resolution Status Controlled type 2 diabetes mellitus with hyperglycemia acute Depression, major, recurrent, mild acute Diarrhea acute Essential hypertension acute Obstructive sleep apnea acut e Stanley syndrome acute [facility] Work Phone: Evaluation note* Diagnosis [...] (prostate specific antigen) acute Stanley syndrome acute [facility] Work Phone: Evaluation note* Diagnosis Onset Date Resolution Status Controlled type 2 diabetes mellitus with hyperglycemia acute Depression, major, recurrent, mild acute Essential hypertension acute Hypercholesterolemia acute Irritable bowel syndrome wit h both constipation and diarrhea acute Medicare annual wellness visit, subsequent acute Obstructive sleep apnea acut e Screening PSA (prostate specific antigen) acute Stanley syndrome acute [facility] Work Phone: Evaluation note* Diagnosis Tremor Abnormal [...] KNEE 1999 Surgical History ARTHROSCOPY OF KNEE 1999,2004,2 005 Surgical History EXCISION LIPOMA 2004 Surgical [...] LOCAL ANESTHESIA Hospitalization History SEE SURGICAL HX [facility] Other History general Narrative - Reported* Type [...] LOCAL ANESTHESIA Hospitalization History SEE SURGICAL HX [facility] Other Hospital Discharge instructions* Attachments The following attachments cannot be sent through Care Everywhere. * URI (Upper Respiratory Infection): Viral (Mongolian) * Sinus Rinse (Mongolian) documented in this encounterBON PlayerD[employer] Phone: Hospital Discharge instructions No data available for this section [facility] No data available for this section [facility] Narrative* Auth/Cert Specialty Diagnoses / Procedures Referred By Alana t Referred To Contact Diagnoses Ingrown toenail of both feet CHRONIC INGROWNS Procedures NV REMOVAL OF NAIL BED NAILBED EXCISION MATRIXECTOMY-HALLUX Kashmir Kelly, DPM [address] [place] [address] [employer] [address] [place] [address] Referral ID Status Reason Start Date Expiration Date Visits Re quested Visits Authorized [id number] 1 1 [employer] Phone: Summary Purpose Family History Relationship Condition Age at Onset Recorded Date/T jordyn Not Specified Diabetes mellitus Unknown Relationship Condition Age at Onset Recorded Date/T jordyn mother Diabetes mellitus Unknown Advance Directives Documents on File Type Date Recorded Patient Podiatry Doctor Expl anation ACP-Guardianship 05/22/2022 1:36 PM Date Activated Date Inactivated Comments 05/17/2022 10:29 AM 05/18/2022 5:08 PM Documents on File Type Date Recorded Patient Podiatry Doctor Expl anation ACP-Advance Directive ACP-[employer] Sales Consultant Documents on File Type Date Recorded Patient Podiatry Doctor Expl anation ACP-Advance Directive ACP-[employer] Sales Consultant Latest Code Status on File Code Status Date Activated Date Inactivated Comments Full Code 05/17/2022 10:29 AM 05/18/2022 5:08 PM Advance Directive Response Recorded Date/ Time Advance Directives No April 29 8 6:50pm Latest Code Status on File Code Status Date Activated Date Inactivated Comments Full Code 05/17/2022 10:29 AM 05/18/2022 5:08 PM Documents on File Type Date Recorded Patient Podiatry Doctor Expl anation ACP-Guardianship 05/22/2022 1:36 PM Latest Code Status on File Code Status Date Activated Date Inactivated Comments Full Code 05/17/2022 10:29 AM 05/18/2022 5:08 PM Advance Directive Response Recorded Date/ Time Advance Directives No April 29 8 5:50pm Assessments Diagnosis Nonintractable headache, unspecified chronicity pattern, [...] Grimaldo RN - 11/16/2020 8:00 AM EST [facility] Preadmission Testing Name: Hari Thornton : [...] have an advance directive for healthcare treatment Technical Maintenance Technician needed: No Patient can read and write?: Yes Mqlg-sc-Oecu: Does the patient want to have any [...] question or concerns please call the office ([phone]). If after hours Dr. Kelly can be reached at [phone] (home) or [phone] (cell phone). documented in this encounter Chief [...] (prostate specific antigen) Stanley syndrome Chief Complaint Admit Date 3 month f/u September 17, 2024 1 0:54am flu shot September 25, 2024 1 0:42am ER f/u URI not feeling better November 8t , 2024 1:24pm Reason for Visit Admit Date Depression, major, recurrent, mild Octob er 2023 10:54am Essential hypertension September 17 10:54am Hypercholesterolemia September 17, 2024 10:54am Irritable bowel syndrome wit h both constipation and diarrhea September 17, 2024 10:54am Medicare annual wellness visit, subseque nt September 17, 2024 10:54am Obstructive sleep apnea October 24th, 20 24 10:54am Screening PSA (prostate specific antigen ) September 17, 2024 10:54am Stanley syndrome September 17, 2024 1 0:54am Controlled type 2 diabetes mellitus with hyperglycemia September 17, 2024 10:54am Acute bronchitis due to other specified organisms December 02, 2024 1:24pm Asthma December 02, 2024 1: 24pm Essential hypertension December 02, 2024 1:24pm Impacted cerumen of right ear November 1:24pm Type 2 diabetes mellitus with hyperglyce jesus alberto December 02, 2024 1:24pm Chief Complaint Admit Date 3 month f/u September 17, 2024 1 0:54am flu shot September 25, 2024 1 0:42am ER f/u URI not feeling better November 1:24pm cough/SOB December 11, 2024 1 :00pm Additional Source Comments (unrecognized sect ion and content) No Status Records FoundNo Status Records FoundNo Status Records FoundNo Status Records FoundNo Status Records FoundNo Status Records FoundNo Status Records Found INFORMATION SOURCE (unrecogn ized section and content) DATE CREATED AUTHOR 05/15/2018 [facility] DATE CREATED AUTHOR AUTHOR'S ORGANIZ ATION 05/19/2022 [facility] DATE CREATED AUTHOR AUTHOR'S ORGANIZ ATION 01/17/2023 [facility] DATE CREATED AUTHOR AUTHOR'S ORGANIZ ATION 04/10/2023 [facility] DATE CREATED AUTHOR AUTHOR'S ORGANIZ ATION 07/09/2024 [facility] DATE CREATED AUTHOR AUTHOR'S ORGANIZ ATION 07/22/2024 [facility] EP[facility] DATE CREATED AUTHOR AUTHOR'S ORGANIZ ATION 12/08/2024 [facility] Reason for Visit (unrecogniz ed section and content) Status Reason Specialty Diagnoses / Procedures Referre d By Contact Referred To Contact Closed Radiology Diagnoses Alternating exotropia Diplopia Myopathy of extraocular muscles, bilateral Procedures HC MRI-BRAIN WO & W CONTRAST [id number] MRI BRAIN WWO Bipin Quintana Y, DO [address] [place] [address] [facility] M[facility] [address] [place] [address] Status Reason Specialty Diagnoses / Procedures Referre d By Contact Referred To Contact Diagnoses Skin lesion SKIN LESION LEFT PLANTAR FOOT Procedures NV EXC TUMOR SOFT TISSUE FOOT/TOE SUBFASC <1.5CM FOOT LESION BIOPSY EXCISION, PLANTAR Kashmir Kelly, DPM [address] [place] [address] [facility] Reason Comments Suicidal Pt reports thoughts of suicide after fight with girlfriend today Reason Comments Concern For COVID-19 Pt was exposed to C ovid and has recently had cough and headache with episodes of tachycardia Specialty Diagnoses / Procedures Referred By Contac t Referred To Contact Diagnoses Onychocryptosis Onychocryptosis [L60.0] Procedures NV EXCISION NAIL MATRIX PERMANENT REMOVAL NAILBED EXCISION MATRIXECTOMY- DIGITS 1,4,5 Kashmir Kelly, DPM [address] [place] [address] [facility] [address] [place] [address] Referral ID Status Reason Start Date Expiration Date Visits Re quested Visits Authorized [id number] 1 1 Reason Comments Tremors Care Teams [...] 2024 End: July 02, 2024 Ju Hoffmann SENIOR BUSINESS ANALYST-DRYER FEEDER-C Attending Provider Active Start: July 02, 2024 [...] 2024 End: May 15, 2024 Ju Hoffmann APRN-DRYER FEEDER-C Attending Provider Active Start: May 15, 2024 End: May 15, 2024 Team Status: Active Member Role Status Dates Narayan Gagnon DO Primary Care Provide r, Attending Provider Active Start: June 11, 2024 Team Status: Inactive Member Role Status Dates Narayan Gagnon DO Primary Care Provider Active Start: March 12, 2024 End: March 12, 2024 Janna Krause APRN ROUTE SALES SPECIALIST-C Attending Provider Act sharyn Start: March 12, 2024 End: March 12, 2024 Sole Buffer Relationship Specialty Start Date End Date Narayan Gagnon DO PCP - General 07/30/14 Sole Buffer Relationship Specialty Start Date End Date Narayan Gagnon DO PCP - General 07/30/14 Sole Buffer Relationship Specialty Start Date End Date Narayan Gagnon DO PCP - General 07/30/14 Sole Buffer Relationship Specialty Start Date End Date Narayan [...] January 23, 2024 End: January 23, 2024 Sole Buffer Relationship Specialty Start Date End Date Narayan Gagnon DO PCP - General 07/30/14 Sole Buffer Relationship Specialty Start Date End Date Narayan Gagnon DO PCP - General 07/30/14 Team Status: Inactive Member Role Status Dates Narayan Gagnon DO Primary Care Provide r, Attending Provider Active Start: September 25, 2024 End: September 25, 2024 Sole Buffer Relationship Specialty Start Date End Date Narayan Gagnon DO PCP - General 07/30/14 Sole Buffer Relationship Specialty Start Date End Date Narayan Gagnon MD [address] [place] [id number] PCP - General Internal Medicine 06/26/23 Sole Buffer Relationship Specialty Start Date End Date Narayan Gagnon MD [address] [place] [address] PCP - General Internal Medicine 06/26/23 Team Status: Active Member Role Status Dates Narayan Gagnon DO Primary Care Provide r, Attending Provider Active Start: November 24, 2024 Team Status: Inactive Member Role Status Dates Narayan Gagnon DO Primary Care Provide r, Attending Provider Active Start: December 02, 2024 End: December 02, 2024 Team Status: Inactive Member Role Status Dates Narayan Gagnon DO Primary Care Provide r, Attending Provider Active Start: December 11, 2024 End: December 11, 2024 Scheduled Active and Recently Administ ered [...] 2300 2309 (Given - Provider: Deonna Randle, ROLF) traZODone (DESYREL) tablet 100 mg (COMPLETED) 100 [...] ider: Germaine Alvarez RN)0850 (NoRateChange - Provider: JEYSON Villanueva POLE FRAMER MACHINE)0920 (Rate/Dose Change - Provider: JEYSON Villanueva CRNA)0953 (Stopped - Provider: Ju Paulino RN) PRN [...] BE BASED ON THE PRIMARY CLINICAL RECORDS. [employer] provides no warranty or guarantee of the accuracy or completeness of information in this document.
[2025-01-15 13:19] LABS: Estimated Average Glucose 151 mg/dL; Glycohemoglobin A1C 6.9 % (4.5-6.2)
== END 2025-01-15 12:12 | disposition home or self-care (01) ==
LOC: LAB 12:14
PROVIDERS: PCP Internal Medicine; Visit Provider Internal Medicine
DX: E11.65 Type 2 diabetes mellitus with hyperglycemia (principal)
CPT/HCPCS: 36415; 83036

== ENCOUNTER 2025-10-09 07:31 | Outpatient (OUT) | payer MEDICARE, MEDICAID, SELFPAY ==
--- OUTSIDE RECORDS SUMMARY | 2025-09-30 23:59 | XMS_ITS | Continuity of Care Document ---
Author Organization [facility] Address [address] [place] [address] Care Team Providers Care Head Of Strategy Name Role Phone RODNEY GAGNON Primary Care Physician Encounter FT_AMBFIN [id number] Date(s): 09/30/25 - 09/30/25 [facility] [address] [place] [address]- Encounter Diagnosis Diarrhea(Discharge Diagnosis) - 09/30/25 Heartburn(Discharge Diagnosis) - 09/30/25 Dysphagia(Discharge Diagnosis) - 09/29/25 Discharge Disposition: Home (Routine DC) Attending Physician: Carlos Patel MD Referring Physician: RODNEY GAGNON DO Encounter Type: Clinic Allergies, Adverse Reactions, Alerts SubstanceCriticalitySeverityReactionReaction SeverityStatuspenicillinHivesActive morphineVomiting Trouble breathing ActivevancomycinTrouble breathingActive Treatment Plan Future Appointments Appointment Date:10/13/2025 02:35:00 PM Scheduled Provider: Location:[facility] Appointment Type:Surgery FT Appointment Date:11/01/2025 01:00:00 PM Scheduled Provider:Jazmine Guadarrama PA-C Location[facility] Appointment Type:Pain Management - Follow Up (FT) Future Scheduled Tests Laboratory* Pancreatic Elastase, Fecal 09/30/25 * Calprotectin, Fecal 09/30/25 * O & P Exam, Routine 09/30/25 * Celiac Disease Comprehensive 09/30/25 * Clostridium Difficile PCR 09/30/25 * Enteric Panel by PCR 09/30/25 Immunizations Given and Recorded VaccineDateStatusRefusal Reasoninfluenza virus vaccine, naachwztcfo64/27/22 Recordedinfluenza virus vaccine, zorbutvfbxy42/14/19Recordedinfluenza virus vaccine, inactivated08/13/18Recordedinfluenza virus vaccine, jzfzzvtliez95/10/16 ApxalcvzYCQZ-PhD-8 (COVID-19) mRNA BNT-162b2 vax501JmhealnyOBFM-TpQ-7 (COVID- 19) mRNA BNT-162b2 vax112/17/20Recordeddiphtheria/pertussis, acel/tetanus adult 03/24/14Recorded 1Result Comment: 2022-10-31: TPV22 Medications aspirin 81 mg Chew Tab 81 mg = 1 tab(s), Chewed, Daily, Refills(s) 0 Start Date: 01/22/22 Status: Ordered Medication Dispense Status: Completed Total Allowed Fills: 1 Fills Dispensed: 0 baclofen 5 mg oral tablet mg tab(s), Oral, TID, Refills(s) 0 Start Date: 09/30/25 Status: Ordered Medication Dispense Status: Completed Total Allowed Fills: 1 Fills Dispensed: 0 benazepril 20 mg Tab mg tab(s), Oral, Daily, Refills(s) 0 Start Date: 09/30/25 Status: Ordered Medication Dispense Status: Completed Total Allowed Fills: 1 Fills Dispensed: 0 carbidopa-levodopa 25 mg-100 mg Tab 1 tab(s), Oral, TID, 270 tab(s), Refill(s) 0 Start Date: 08/19/25 Status: Ordered Medication Dispense Status: Completed Quantity: 270.0 Unit: tab(s) Total Allowed Fills: 1 Fills Dispensed: 0 clonazepam 1 mg, Oral, BID, Psychosis Start Date: 08/10/20 Status: Ordered Medication Dispense Status: Completed Total Allowed Fills: 1 Fills Dispensed: 0 divalproex sodium 500 mg ER Tab 500 mg = 1 tab(s), Oral, BID, Refills(s) 0, Psychosis Start Date: 05/09/20 Status: Ordered Medication Dispense Status: Completed Total Allowed Fills: 1 Fills Dispensed: 0 duloxetine 60 mg oral delayed release capsule Refills(s) 0 Start Date: 08/18/25 Status: Ordered Medication Dispense Status: Completed Total Allowed Fills: 1 Fills Dispensed: 0 famotidine 40 mg Tab 40 mg = 1 tab(s), Oral, Once a day (at bedtime), # 90 tab(s), Refills(s) 0, Pharmacy: [id number], 171, cm, 09/30/25 14:31:00 EST, Height/Length Dosing, 88, kg, 09/30/25 14:31:00 EST, Weight Dosing Start Date: 09/30/25 Status: Ordered Medication Dispense Status: Completed Quantity: 90.0 Unit: tab(s) Total Allowed Fills: 1 Fills Dispensed: 0 Fanapt 6 mg oral tablet 6 mg = 1 tab(s), Oral, BID, Refills(s) 0 Start Date: 08/19/25 Status: Ordered Medication Dispense Status: Completed Total Allowed Fills: 1 Fills Dispensed: 0 Fiber Lax 625 mg oral tablet 625 mg = 1 tab(s), Oral, Every other day, Refills(s) 0, Constipation Start Date: 05/09/20 Status: Ordered Medication Dispense Status: Completed Total Allowed Fills: 1 Fills Dispensed: 0 glimepiride 2 mg Tab 2 mg = 1 tab(s), Oral, Daily, Refills(s) 0, Blood glucose Start Date: 05/09/20 Status: Ordered Medication Dispense Status: Completed Total Allowed Fills: 1 Fills Dispensed: 0 Jardiance 25 mg oral tablet 25 mg = 1 tab(s), Refills(s) 0 Start Date: 08/18/25 Status: Ordered Medication Dispense Status: Completed Total Allowed Fills: 1 Fills Dispensed: 0 Nexium 40 mg Cap-EC 40 mg = 1 cap(s), Oral, Daily, before dinner, # 90 cap(s), Refills(s) 0, Pharmacy: [facility], 171, cm, 09/30/25 14:31:00 EST, Height/Length Dosing, 88, kg, 09/30/25 14:31:00 EST, Weight Dosing Start Date: 09/30/25 Status: Ordered Medication Dispense Status: Completed Quantity: 90.0 Unit: cap(s) Total Allowed Fills: 1 Fills Dispensed: 0 pravastatin 20 mg Tab 20 mg = 1 tab(s), Oral, Once a day (at bedtime), Refills(s) 0, High cholesterol Start Date: 05/09/20 Status: Ordered Medication Dispense Status: Completed Total Allowed Fills: 1 Fills Dispensed: 0 primidone 50 mg Tab 25 mg = 0.5 tab(s), Oral, Once a day (at bedtime), Psychosis Start Date: 01/08/22 Status: Ordered Medication Dispense Status: Completed Total Allowed Fills: 1 Fills Dispensed: 0 Probiotic Digestive Aid Gummies mg, Chewed, BID, Refill(s) 0 Start Date: 09/30/25 Status: Ordered Medication Dispense Status: Completed Total Allowed Fills: 1 Fills Dispensed: 0 tizanidine 4 mg oral capsule 4 mg = 1 cap(s), Oral, Bedtime, Refills(s) 0, Muscle pain Start Date: 05/09/20 Status: Ordered Medication Dispense Status: Completed Total Allowed Fills: 1 Fills Dispensed: 0 tramadol 50 mg oral tablet 50 mg = 1 tab(s), Oral, BID, PRN for pain, Refills(s) 0 Start Date: 05/09/20 Status: Ordered Medication Dispense Status: Completed Total Allowed Fills: 1 Fills Dispensed: 0 traZODONE 100 mg Tab 100 mg = 1 tab(s), Oral, Once a day (at bedtime), Sleep Start Date: 01/08/22 Status: Ordered Medication Dispense Status: Completed Total Allowed Fills: 1 Fills Dispensed: 0 Trulicity Pen 3 mg/0.5 mL subcutaneous solution 3 mg, SubCutaneous, qWeek, Blood glucose Start Date: 01/08/22 Status: Ordered Medication Dispense Status: Completed Total Allowed Fills: 1 Fills Dispensed: 0 verapamil 180 mg Cap-ER 180 mg = 1 cap(s), Oral, Daily, Refills(s) 0, Other (see comment) Start Date: 05/09/20 Status: Ordered Medication Dispense Status: Completed Total Allowed Fills: 1 Fills Dispensed: 0 Vitamin B12 Refills(s) 0 Start Date: 09/30/25 Status: Ordered Medication Dispense Status: Completed Total Allowed Fills: 1 Fills Dispensed: 0 Problem List ConditionConfirmationCourseEffective DatesStatusHealth StatusInformantAbdominal painConfirmedActiveArthritisConfirmedActiveChronic headachesConfirmedActive Congenital chromosomal diseaseConfirmed02/28/18ActiveDepressionConfirmedActive Diabetes mellitusConfirmed02/28/18ActiveDiarrheaConfirmedActiveHydroceleConfirmed ActiveDysphagiaConfirmedActiveDysuriaConfirmedActiveAbdominal crampingConfirmed ActiveHearing lossConfirmedActiveHeart murmurConfirmedActiveHeartburnConfirmed ActiveHistory of colon polypsConfirmedActiveHyperlipidemiaConfirmed02/28/18Active HypertensionConfirmedActiveUrinary frequencyConfirmedActiveIrregular bowel habitsConfirmedActivePsychiatric illnessConfirmedActiveNeoplasm of lungConfirmed 02/28/18ActiveNocturiaConfirmedActiveObstructive atelectasisConfirmed02/28/18Active Post-void dribblingConfirmedActiveProteinuriaConfirmedActiveUrinary reflux ConfirmedActiveSchizophreniaConfirmedActiveApnea, sleepConfirmedActiveTesticular swellingConfirmedActiveType 2 diabetes mellitusConfirmedActiveUrge incontinence ConfirmedActiveBilateral ureteral 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/03/18Active Procedures ProcedureDateRelated DiagnosisBody SiteStatusColonoscopy01/02/23Completed Esophagogastroduodenoscopy01/02/23CompletedRight Total knee replacement01/22/22 CompletedTotal knee arthroplasty01/22/2240JalfgpxncKjqhthcbpexbjv7/3/20Completed Arthroscopy of kneeCompletedBilateral inguinal hernia repairCompletedCarpal tunnel releaseCompletedExcision of cholesteatoma of earCompletedeye surgery for crossed eyesCompletedHistory of repair of umbilical herniaCompletedNasal polypectomyCompletedRemoval of toenail y8Hbgiynwvo Social History Social History TypeResponseSmoking StatusNever (less than 100 in lifetime);Never entered on: 09/30/25Birth SexMaleSex RepresentationMale (finding) Implantable Device List ProcedureProviderProcedure DateDevice TypeSiteKNEE TOTAL ARTHROPLASTYPowerClaude bravo DO T2Non BiologicalKnee RDevice IdentifierSerial NumberLot or Batch NumberManufacturing DateExpiration DateDistinct Identification CodeMRI Safety Implantable StatusAssigning [id number] 05/24/2329OnnvaqvGytpmxe[id number]/31/31Unknown AruyhkxGhw[id number]/UnknownUnknownActive YosqzpgKqsczpyNsihjoo1015264Prcjtrt17/31/23UnknownUnknownActiveUnknownUnknown [id number]tiveUnknown Patient Care team information Care Team Personnel Name: RODNEY GAGNON DO Position: FT Physician Member Role: Primary Care Physician Address: [address] [place], [place] [address] Telecom: Care Team Related Persons Name: NICKOLAS THORNTON Name: NICKOLAS THORNTON Name: CALISTA THORNTON Name: CALISTA THORNTON Insurance Providers Guarantor name: Health Plan Information #: 1 Payer: MEDICARE Payer Identifier: [id number] Member Number: [id number] Group Number: [id number] Subscriber Identifier: [id number] Relationship to Subscriber: self Coverage Type: MEDICARE Coverage Verification Date: 25 Telecom: [phone] Address: [address] [place], [place] [address] Health Plan Information #: 2 Payer: Medicaid Payer Identifier: [id number] Member Number: [id number] Group Number: [id number] Subscriber Identifier: [id number] Relationship to Subscriber: self Coverage Type: MEDICAID Coverage Verification Date: 25 Telecom: [phone] Address: [address]
--- OUTSIDE RECORDS SUMMARY | 2025-10-09 07:35 | XMS_ITS | CCD ---
Author Organization [facility] Care Team Providers Care Wardrobe Supervisor Name Role Phone PHYSICIAN, DEFAULT Unavailable Unavailable PHYSICIAN, DEFAULT Unavailable Unavailable CHELSI, NARAYAN Unavailable Unavailable PHYSICIAN, DEFAULT Unavailable Unavailable PHYSICIAN, DEFAULT Unavailable Unavailable NARAYAN GAGNON Unavailable Unavailable Narayan Gagnon Primary Care Provider [phone] Narayan Gagnon DO Primary Care Provider [phone] Narayan Gagnon DO Primary Care Provider VAHID MOODY Referring Unavailable AARON, MARCELO S Consulting Unavailable NARAYAN GAGNON Primary Care Unavailable ZOLTAN MONIQUE Attending Unavailable ZOLTAN MONIQUE Admitting Unavailable Narayan Gagnon DO Primary Care Provider [phone] NARAYAN GAGNON Primary Care Physician Narayan Gagnon Unavailable LULU, DR KUMAR Admitting Unavailable LE, MINA Consulting Unavailable LULU, DR KUMAR Attending [...] BALLARD, DR RADFORD Admitting Unavailable BALL, DR UBSCH Primary Care Unavailable BALLARD, DR RADFORD Attending Unavailable HUANG BARRY Admitting Unavailable HUANG BARRY Attending Unavailable BALL, DR BUSCH Primary Care Unavailable Ball Narayan SOTELO Primary Care Provider DO Narayan Gagnon Primary Care Provider Shun, BRAKE MACHINE OPERATOR-PALLET REPAIRER-C Ju Stock Attending Provider Narayan Gagnon Primary Care Unavailable Ju Hoffmann Admitting Unavailable Shun, Ju E Attending Unavailable Narayan Gagnon Primary Care Unavailable Hoffmann, Ju E Admitting Unavailable HoffmannJu gongora E Attending Unavailable Ball, DO Busch Primary Care Provider JEYSON Hoffmann-PALLET REPAIRER-C Ju Stock Attending Provider Narayan Gagnon MD Primary Care Provider NARAYAN GAGNON Primary Care Unavailable BALL, NARAYAN Referring Unavailable BALL, NARAYAN Referring Unavailable BALL, NARAYAN Primary Care Unavailable KASHMIR KELLY Admitting Unavailable KASHMIR KELLY Attending Unavailable NARAYAN GAGNON Primary Care Unavailable Coco Hurtado DO Unavailable Narayan Gagnon DO Primary Care Provider Narayan Gagnon DO Attending Provider Jamila Payan Attending Provider Unavailable Shun BRAKE MACHINE OPERATOR-PALLET REPAIRER-CJu Attending Provider JU HOFFMANN Attending Unavailable MALINA BALLARD Referring Unavailable MALINA BALLARD Attending Unavailable Narayan Gagnon DO Primary Care Provider Coco Hurtado DO Unavailable Narayan Gagnon DO Primary Care Provider Narayan Gagnon DO Attending Provider Anupam Monroe Admitting Unavailable Anupam Monroe Attending Unavailable Anupam Monroe Attending Unavailable JU HOFFMANN Referring Unavail able Anupam Monroe Admitting Unavailable Carlos Patel Attending Unavaila ble NARAYAN GAGNON Referring Unavailable Allergies Allergy ClassificationReported Allergen(s)Allergy TypeDate of OnsetReaction(s) Facility (20 sources)Morphine; Translations: [morphine]Drug Ankaptm63-88-6002Axnln, Vomiting (disorder), Difficulty breathing (finding), Shortness of breath, Other [place], [place] (20 sources)PenicillinsPropensity to adverse reactions to ukcp17-39-7050Bkfvi [place], [place] (20 sources)Vancomycin; Translations: [vancomycin]Drug Uruysub07-00-9328 Anaphylaxis, Difficulty breathing (finding), [place], [place] (20 sources)Penicillin; Translations: [penicillin]Drug AllergyUrticaria (disorder)[facility] (1 source)[facility]Drug [facility]ergy[facility] (1 source)VancomycinDrug AllergyLutheran Hospital Repository (18 sources)Penicillin G Benzathine & ProcDrug allergyUnkkindred hospital las [facility]gas – saharaCashStar Other (18 sources)Morphine Sulfate (Concentrate) *ANALGESICS - OPIOIPropensity to adverse reactionsJefferson HospitalCollider Media Other (6 sources)Allergies ReconciledPropensity to adverse reactionsFranciscan Health MooresvilleCashStar Other (6 sources)patient allergy list reviewed by nurse or physiciaPropensity to adverse bwnqrufka70-71-7871Yhcbhej:YolaINWEBTURE Limited Other (3 sources)PenicillinsPropensity to adverse reactions to mohx88-58-3258NicinYQGMartinsville Memorial Hospital (1 source)MorphineDrug Uulenia44-89-6179RympmfsliKet[facility] (1 source)PenicillinsDrug allergy (disorder)76-94-9516TlwwijhgaKettering Health Main Campus Repository (1 source)VancomycinDrug Hyulpiy65-00-1921OxjbtkfmvKettering Health Main Campus Repository (8 sources)PenicillinsDrug Jfnodpb16-08-0436VpblsZZJS Healthcare Medications Current Medications MedicationDrug Class(es)DatesSig (Normalized)Sig (Original)Acetaminophen / oxyCODONE (6 sources)Opioid AgonistStart: 63-16-8061Qycwroqh 325 mg-5 mg Tab 1 tab(s), Oral, q4hr Pain 4-7, Refill(s) 0 Start Date: 01/17/22 Status: OrderedStart: 30-83-0036Nbclokzq 325 mg-5 mg Tab 2 tab(s), Oral, q4hr Pain 4-7, Refill(s) 0 Start Date: 01/17/22 Status: OrderedStart: 14-63-8294Utrmfcay 325 mg-5 mg Tab 1 tab(s), Oral, q4hr Pain 4-7, Refill(s) 0 Start Date: 01/17/22 Status: Ordered aspirin 81 mg chewable tablet (20 sources)Platelet Aggregation Inhibitor, Nonsteroidal Anti-inflammatory Drug Start: 44-39-3697icvxmsw 81 mg Chew Tab 81 mg = 1 tab(s), Chewed, Daily, Refills(s) 0 Start Date: 01/22/22 Status: Ordered Medication Dispense Status: Completed Total Allowed Fills: 1 Fills Dispensed: 0Start: 04-29-2018 End: 82-86-6495cotk 1 tablet by mouth once dailyAspirin 81 mg tablet,delayed release (DR/EC) Discontinued 81 MG PO daily 90 90 3 June 26, 2024 8:47am May 31, 2025 10:31pmtake 1 tablet by mouth once daily in the morningaspirin 81 MG tablet Take 81 mg by mouth every morning. 0 Activebaclofen 5 mg oral tablet (1 source)gamma-Aminobutyric Acid-ergic AgonistStart: 79-66-8777cpel 1 mg by mouth three times dailybaclofen 5 mg oral tablet mg tab(s), Oral, TID, Refills(s) 0 Start Date: 09/30/25 Status: Ordered Medication Dispense Status: Completed Total Allowed Fills: 1 Fills Dispensed: 0benazepril hydrochloride 20 mg oral tablet (2 sources)Angiotensin Converting Enzyme InhibitorStart: 56-83-3869ghbw 1 mg by mouth once dailybenazepril 20 mg Tab mg tab(s), Oral, Daily, Refills(s) 0 Start Date: 09/30/25 Status: Ordered Medication Dispense Status: Completed Total Allowed Fills: 1 Fills Dispensed: 0Start: 22-09-7556hfgz 1 tablet by mouth once dailyBenazepril 20 mg tablet Active 20 MG PO Daily 90 90 3 September 07, 2025 12:00am Complies with drugtherapyBlood Glucose Monitoring Suppl (ReliOn True Met Air Gluc Meter) w/Device kit (8 sources)Start: 93-26-1793Kklli Glucose Monitoring Suppl (ReliOn True Met Air Gluc Meter) w/Device kit Take 1 puff by mouth if needed 04/06/2024 ActiveBlood- Glucose Meter (True Metrix Air Glucose Meter) misc (11 sources)Start: 23-79-4254Vmzlr-Glucose Meter (True Metrix Air Glucose Meter) misc Active 0 .Route 1 0 April 06, 2024 12:00amControlled type 2 diabetes mellitus with hyperglycemia Type 2 diabetes mellitus with hyperglycemia to test BS dailyStart: 67-50-2507Novct-Glucose Meter (True Metrix Air Glucose Meter) misc Active 0 .Route 1 April 05, 2024 11:00pm to test BS dailyStart: 04-06-2024 Blood-Glucose Meter (True Metrix Air Glucose Meter) misc Active 0 .Route 1 April 06, 2024 12:00am to test BS dailycalcium chloride 0.0014 meq/ml / potassium chloride 0.004 meq/ml / sodium chloride 0.103 meq/ml / sodium lactate 0.028 meq/ml injectable solution (2 sources)Start: 21-00-0072bzbsxhjp ringers IV soln infusionStart: 11-24-2020 lactated ringers infusioncalcium polycarbophil 625 mg oral tablet (20 sources)Start: 07-21-2025 End: 27-72-8040innw 1 tablet by mouth every other dayCalcium Polycarbophil (Fiber Laxative (Ca Polycarbo)) 625 mg tablet Active 625 MG PO .QOD 15 30 11 A ugust 2024 11:10am Complies with drug therapyStart: 04-29-2018 End: 55-92-5016cpqc 1 tablet by mouth twice dailyCalcium Polycarbophil (Fiber- Lax) 625 mg Tablet Discontinued 625 MG PO Twice daily April 29, 2018 12:00am January 22, 2024 12:44pmtake 1 tablet by mouth every other daypolycarbophil (FIBERCON) 625 MG tablet Take 1 tablet by mouth every other day Alternate with ColaceActiveCalcium Polycarbophil (FIBER-LAX PO) Fiber-Lax Activetake 2 tablets by mouth every eight hoursFiber-Lax 625 MG 2 tablets as needed Orally Three times a day for 30 days Activecarbidopa 25 mg / levodopa 100 mg oral tablet (10 sources)Aromatic Amino Acid Decarboxylation Inhibitor, Aromatic Amino Acid Start: 62-95-5974nhewurqxx-levodopa 25 mg-100 mg Tab 1 tab(s), Oral, TID, 270 tab(s), Refill(s) 0 Start Date: 08/19/25 Status: Ordered Medication Dispense Status: Completed Quantity: 270.0 Unit: tab(s) Total Allowed Fills: 1 Fills Dispensed: 0Start: 03-04-2025 End: 18-62-6761chpc 1 tablet by mouth three times daily in the morningCarbidopa- Levodopa 25-100 mg tablet Active 1 TAB PO Three times daily 90 30 July 15, 2025 9:16pm Tremor Tremor, unspecified Take 1 tablet by mouth three times a day (at 8:00 am, 12:00 pm, and 4:00 pm). Complies with drug therapyStart: 00-87-4500bwniwnpda-levodopa (Sinemet) 25-100 MG tablet Indications: Tremor Take 1/2 (one half) tablet by mouth three times a day (at 8:00 am, 12:00 pm, and 4:00 pm). 45 tablet 2 01/22/2025 Activecetirizine hydrochloride 10 mg chewable tablet (8 sources)Histamine-1 Receptor Antagonistcetirizine (ZyrTEC) 10 MG chewable tablet Chew Daily. ActiveclonazePAM 1 mg oral tablet (20 sources)BenzodiazepineStart: 11-34-5267znkz 1 mg by mouth twice daily clonazepam 1 mg, Oral, BID, Psychosis Start Date: 08/10/20 Status: Ordered Medication Dispense Status: Completed Total Allowed Fills: 1 Fills Dispensed: 0 dulaglutide (Trulicity) 4.5 MG/0.5ML solution pen-injector (8 sources)inject 4.5 mg by subcutaneous injection every weekdulaglutide (Trulicity) 4.5 MG/0.5ML solution pen-injector Inject 4.5 mg under the skin 1 (one) time per week. ActiveDULoxetine 60 mg delayed release oral capsule (11 sources)Serotonin and Norepinephrine Reuptake InhibitorStart: 08-18-2025 duloxetine 60 mg oral delayed release capsule Refills(s) 0 Start Date: 08/18/25 Status: Ordered Medication Dispense Status: Completed Total Allowed Fills: 1 Fills Dispensed: 0Start: 73-52-2684wwqo 1 capsule by mouth once daily in the morningDULoxetine (Cymbalta) [address] capsule TAKE 1 CAPSULE BY MOUTH ONCE DAILY IN THE MORNING 11/27/2023ctiveempagliflozin 25 mg oral tablet (20 sources)Sodium-Glucose Cotransporter 2 InhibitorStart: 17-69-8264Hzkwzmihx 25 mg oral tablet 25 mg = 1 tab(s), Refills(s) 0 Start Date: 08/18/25 Status: Ordered Medication Dispense Status: Completed Total Allowed Fills: 1 Fills Dispensed: 0Start: 01-22-2024 End: 26-69-0703lown 1 tablet by mouth once dailyEmpagliflozin 25 mg tablet Discontinued 25 MG PO Daily 90 90 3 June 26, 2024 8:47am May 31, 2025 10:31pmesomeprazole 40 mg delayed release oral capsule (1 source)Proton Pump InhibitorStart: 10-20-2597vwnm 1 capsule by mouth once daily before dinnerNexium 40 mg Cap-EC 40 mg = 1 cap(s), Oral, Daily, before dinner, # 90 cap(s), Refills(s) 0, Pharmacy: [facility], 171, cm, 09/30/25 14:31:00 EST, Height/Length Dosing, 88, kg, 09/30/25 14:31:00 EST, Weight Dosing Start Date: 09/30/25 Status: Ordered Medication Dispense Status: Completed Quantity: 90.0 Unit: cap(s) Total Allowed Fills: 1 Fills Dispensed: 0 famotidine 40 mg oral tablet (1 source)Histamine-2 Receptor AntagonistStart: 11-26-8008mntx 1 tablet by mouth once daily at bedtimefamotidine 40 mg Tab 40 mg = 1 tab(s), Oral, Once a day (at bedtime), # 90 tab(s), Refills(s) 0, Pharmacy: [facility], 171, cm, 09/30/25 14:31:00 EST, Height/Length Dosing, 88, kg, 09/30/25 14:31:00 EST, Weight Dosing Start Date: 09/30/25 Status: Ordered Medication Dispense Status: Completed Quantity: 90.0 Unit: tab(s) Total Allowed Fills: 1 Fills Dispensed: 0 Fiber (4 sources)Start: 49-23-3320fdqu 1 tablet by mouth every other dayFiber Lax 625 mg oral tablet 625 mg = 1 tab(s), Oral, Every other day, Refills(s) 0, Constipation Start Date: 05/09/20 Status: Ordered Medication Dispense Status: Completed Total Allowed Fills: 1 Fills Dispensed: 0Start: 98-01-3952szkm 1 tablet by mouth every other dayFiber Lax 625 mg oral tablet 625 mg = 1 tab(s), Oral, Every other day, Refills(s) 0, Constipation Start Date: 05/09/20 Status: Orderedfluticasone propionate 0.05 mg/actuat metered dose nasal spray (20 sources)CorticosteroidStart: 46-00-0948Pwacmjqrfoc Propionate 50 mcg/actuation spray,suspension Active 1 SPRAY INTRANASAL Daily January 22, 2024 1:00am Complies with drug therapytake 1 spray(s) nasal route once daily Fluticasone Propionate 50 MCG/ACT 1 spray in each nostril Nasally Once a day Activetake 1 spray(s) nasal route once dailyFluticasone Propionate 50 MCG/ACT 1 spray in each nostril Nasally Once a day Activeglimepiride 4 mg oral tablet (20 sources)SulfonylureaStart: 10-01-2024 End: 59-28-6047fvoa 2 tablets by mouth once dailyGlimepiride 4 mg tablet Active 8 MG PO Daily 180 90 3 September 09, 2025 8:37pm Complies with drug therapy Start: 01-23-2024 End: 70-36-8642Sqpzbmnsvwq 2 mg tablet Discontinued 2 MG PO Daily 90 90 3 June 26, 2024 8:47am September 17, 2024 11:20am Take with 4mg dose, 30 minutes prior to bkfstStart: 01-23-2024 End: 94-03-7191Vuxcxsjuxhe Discontinued 2 MG PO Daily 90 90 June 26, 2024 8:47am September 17, 2024 11:20am Take with 4mg dose, 30 minutes prior to bkfst Start: 01-22-2024 End: 64-42-5594lmnh 1 tablet by mouth once dailyGlimepiride 4 mg tablet Discontinued 4 MG PO Daily 90 90 3 June 01, 2024 5:39pm October 01, 2024 1:25pmStart: 04-29-2018 End: 93-61-9156acxo 1 tablet by mouth once dailyGlimepiride 2 mg tablet Discontinued 2 MG PO Daily 90 90 3 September 18, 2024 12:00am September 1:25pmStart: 04-29-2018 End: 25-15-5554vrlx 1 tablet by mouth once daily in the morningGlimepiride Discontinued 3 MG PO Every morning April 29, 2018 12:00am January 22, 2024 12:40pm (1 1/2 tab daily)take 2 tablets by mouth once daily before breakfast glimepiride (AMARYL) 1 MG tablet Take 2 tablets by mouth every morning (before breakfast) Activetake 4 tablets by mouth once daily before breakfastglimepiride (AMARYL) 1 MG tablet Take 4 mg by mouth every morning (before breakfast) 0 Activehyoscyamine sulfate 0.125 mg sublingual tablet (20 sources)Start: 01-22-2024 End: 88-54-6328uicl 1 tablet under the tongue once daily as neededHyoscyamine Sulfate (Levsin/Sl) 0.125 mg tablet, sublingual Active 0.125 MG SUBLINGUAL Daily as needed for dyspepsia 30 30 2 April 30, 2025 12:10pm Complies with drug therapyStart: 49-47-0642hzskezzfctl (Levsin) 0.125 MG SL tablet DISSOLVE 1 TABLET UNDER THE TONGUE NEEDED BEFORE MEAL(S)AND AT BEDTIME FOR 15 DAYS 11/14/2023 Activeibuprofen 800 mg oral tablet (11 sources)Nonsteroidal Anti-inflammatory DrugStart: 72-44-6783irsr 1 tablet by mouth every six hours as needed for painibuprofen (ADVIL;MOTRIN) 800 MG tablet Take 1 tablet by mouth every 6 hours as needed for Pain for up to 40 doses. 40 tablet 0 07/30/2014 Activeiloperidone 6 mg oral tablet (20 sources)Atypical AntipsychoticStart: 71-97-2132qcpc 1 tablet by mouth twice dailyFanapt 6 mg oral tablet 6 mg = 1 tab(s), Oral, BID, Refills(s) 0 Start Date: 08/19/25 Status: Ordered Medication Dispense Status: Completed Total Allowed Fills: 1 Fills Dispensed: 0Start: 80-36-1317Mvxuqp Refills(s) 0 Start Date: 11/01/22 Status: OrderedmetFORMIN hydrochloride 500 mg oral tablet (20 sources)BiguanideStart: 33-06-1839sfdt 1 tablet by mouth twice daily metformin 500 mg oral tablet 500 mg = 1 tab(s), Oral, BID, Blood glucose Start Date: 01/08/22 Status: OrderedStart: 04-29-2018 End: 93-94-3714svtk 1 tablet by mouth twice daily at mealtimeMetformin 1,000 mg Tablet Discontinued 1000 MG PO Twice daily April 29, 2018 12:00am January 22, 2024 12:43pm with mealstake 1 tablet by mouth twice dailymetFORMIN, MOD, (Glumetza) 1000 MG 24 hr tablet Take 1 tablet twice a day by oral route. Active metFORMIN (GLUCOPHAGE) 1000 MG tablet Take 500 mg by mouth 2 times daily (with meals) 0 ActivemetroNIDAZOLE 7.5 mg/ml topical cream (20 sources)Nitroimidazole AntimicrobialStart: 67-88-4608Luuzrlisrepxm (Metrocream) 0.75 % cream Active 1 APPLIC TOPICAL Twice daily January 22, 2024 1:00am Complies with drug therapyStart: 22-06-3497PokxxJzpix 0.75 % 1 application Externally Twice a day for 30 days Feb, ActiveMultiple Vitamin (MULTI VITAMIN DAILY PO) (8 sources)Multiple Vitamin (MULTI VITAMIN DAILY PO) Activeomeprazole 40 mg delayed release oral capsule (10 sources)Proton Pump InhibitorStart: 11-01-2022 End: 56-23-0529kqmf 1 capsule by mouth once dailyomeprazole 40 mg Cap-DR 40 mg = 1 cap(s), Oral, Daily, X 90 day(s), # 90 cap(s), Refills(s) 0, Pharmacy: [facility], 171, cm, 11/01/22 12:17:00 EST, Height/Length Dosing, 78.9, kg, 11/01/22 12:17:00 EST, Weight Dosing Start Date: 11/01/22 Stop Date: 01/30/23 Status: Orderedpolyethylene glycol 3350 358490 mg / potassium chloride 1480 mg / sodium bicarbonate 5720 mg / sodium chloride 32113 mg powder for oral solution (1 source)Osmotic LaxativeStart: 44-71-6173IeJXJPSA Zimmer oral powder for reconstitution See Instructions, 1 EA, Refill(s) 0, Prior to colonoscopy., [facility], 171, cm, 11/01/22 12:17:00 EST, Height/Length Dosing, 78.9, kg, 11/01/22 12:17:00 EST, Weight Dosing Start Date: 11/01/22 Status: Orderedpravastatin sodium 20 mg oral tablet (20 sources)HMG-CoA Reductase InhibitorStart: 09-83-9056xyvn 1 tablet by mouth once daily in the eveningPravastatin 20 mg tablet Active 0 .ROUTE .COMPLEX 28 July 21, 2025 8:30pm TAKE 1 TABLET BY MOUTH EVERY EVENING Complies with drug therapyStart: 04-29-2018 End: 10-15-6875caop 1 tablet by mouth once daily at bedtimepravastatin 20 mg Tab 20 mg = 1 tab(s), Oral, Once a day (at bedtime), Refills(s) 0, High cholesterol Start Date: 05/09/20 Status: Ordered Medication Dispense Status: Completed Total Allowed Fills: 1 Fills Dispensed: 0primidone 50 mg oral tablet (20 sources)Anti-epileptic AgentStart: 06-14-2025 End: 50-54-2586ntim 1 tablet by mouth twice dailyPrimidone 50 mg tablet Active 50 MG PO Twice daily 60 30 September 10, 2025 12:16pm Tremor Tremor, unspecified Complies with drug therapyStart: 43-60-1208kimt 2 tablets by mouth once daily in the eveningprimidone (Mysoline) 50 MG tablet Indications: Tremor TAKE 2 TABLETS BY MOUTH EVERY EVENING WITH SUPPER 56 tablet 2 03/04/2025 Active Start: 79-09-7187dmcayeaof (Mysoline) 50 MG tablet Indications: Tremor TAKE 2 TABLETS BY MOUTH WITH SUPPER 60 tablet2 12/14/2024 ActiveStart: 07-20-2024 primidone (Mysoline) 50 MG tablet Indications: Tremor Take 2 tablets PO with supper 180 tablet 1 07/20/2024 ActiveStart: 06-25-2024 End: 50-30-8062jure 1 tablet by mouth in the morningprimidone (Mysoline) 50 MG tablet Indications: Tremor Take 1 tablet (50 mg) by mouth in the morningand 1 tablet (50 mg) before bedtime. 180 tablet 1 06/25/2024 07/20/2024 Discontinued (Reorder)Start: 05-16-2022 End: 35-94-9196tdgghtwgq (MYSOLINE) tablet 25 mgStart: 52-77-3403qjhswvwko 50 mg Tab 25 mg = 0.5 tab(s), Oral, Once a day (at bedtime), Psychosis Start Date: 01/08/22 Status: Ordered Medication Dispense Status: Completed Total Allowed Fills: 1 Fills Dispensed: 0take 0.5 tablet by mouth once dailyprimidone (MYSOLINE) 50 MG tablet Take 0.5 tablets by mouth nightly ActiveProbiotic Digestive Aid Gummies (1 source)Start: 00-80-6644Hzjvuvkfw Digestive Aid Gummies mg, Chewed, BID, Refill(s) 0 Start Date: 09/30/25 Status: Ordered Medication Dispense Status: Completed Total Allowed Fills: 1 Fills Dispensed: 0tiZANidine 4 mg oral tablet (20 sources)Central alpha-2 Adrenergic AgonistStart: 29-89-5907yvcr 1 tablet by mouth once daily in the eveningTizanidine 4 mg tablet Active 0 .ROUTE .COMPLEX 28 July 21, 2025 8:34pm TAKE 1 TABLET BY MOUTH EVERY EVENING Complies with drug therapyStart: 05-16-2022 End: 13-98-3507dlQVJdfgpf (ZANAFLEX) tablet 4 mgStart: 04-29-2018 End: 98-01-1042krun 1 capsule by mouth at bedtimetizanidine 4 mg oral capsule 4 mg = 1 cap(s), Oral, Bedtime, Refills(s) 0, Muscle pain Start Date: 05/09/20 Status: Ordered Medication Dispense Status: Completed Total Allowed Fills: 1 Fills Dispensed: 0take 1 capsule by mouth three times daily as needed for muscle spasmstiZANidine (Zanaflex) 4 MG capsule Take 4 mg by mouth 3 (three) times a day as needed for muscle spasms Activetake 1 tablet by mouth every eight hours tiZANidine HCl 4 MG 1 tablet as needed Orally Three times a day for 30 days ActivetraZODone hydrochloride 100 mg oral tablet (20 sources)Serotonin Reuptake InhibitorStart: 29-36-3728shwy 1 tablet by mouth once daily at bedtimeTrazodone 100 mg tablet Active 0 .ROUTE .COMPLEX 22 10July 21, 2025 8:31pm TAKE 1 TABLET BY MOUTH EVERY NIGHT AT BEDTIME Complies with drug therapyStart: 99-08-7001ywsBGRezo (DESYREL) tablet 100 mgStart: 01-08-2022 End: 58-81-8931cptn 1 tablet by mouth once daily at bedtimetraZODONE 100 mg Tab 100 mg = 1 tab(s), Oral, Once a day (at bedtime), Sleep Start Date: 01/08/22 Sta tus: Ordered Medication Dispense Status: Completed Total Allowed Fills: 1 Fills Dispensed: 024 hr divalproex sodium 500 mg extended release oral tablet (20 sources)Mood Stabilizer, Anti-epileptic AgentStart: 67-17-8251vnio 1 tablet by mouth twice dailydivalproex sodium 500 mg ER Tab 500 mg = 1 tab(s), Oral, BID, Refills(s) 0, Psychosis Start Date: 05/09/20 Status: Ordered Medication Dispense Status: Completed Total Allowed Fills: 1 Fills Dispensed:0Start: 05-05-2018 End: 12-68-2537cimd 1 tablet by mouth once daily at bedtimeDivalproex 250 mg Tablet Extended Release 24 Hr Discontinued 250 MG PO Daily at bedtime 30 May 05, 2018 12:00am January 22, 2024 12:43pmStart: 05-05-2018 End: 66-56-9783egpp 1 tablet by mouth twice dailyDivalproex 500 mg Tablet,Delayed Release (Dr/Ec) Discontinued 500 MG PO Twice daily 60 April 12:00am January 22, 2024 12:43pmStart: 04-29-2018 End: 69-88-0035xtcj 1 tablet by mouth three times dailyDivalproex 250 mg Tablet Extended Release 24 Hr Discontinued 250 MG PO Three times daily April 29, 2018 12:00am January 22, 2024 12:44pmtake 2 tablets by mouth twice dailydivalproex (DEPAKOTE) [address] tablet Take 500 mg by mouth 2 times daily 0 Active verapamil hydrochloride 180 mg extended release oral tablet (20 sources)Calcium Channel BlockerStart: 25-31-5390vrwp 1 tablet by mouth once dailyVerapamil 180 mg tablet extended release Active 0 .ROUTE .COMPLEX 28 July 21, 2025 8:34pm TAKE 1 TABLET BY MOUTH DAILY Complies with drug therapy Start: 68-93-4336xjsr 1 tablet by mouth every twenty-four hoursVerapamil HCl ER 180 MG 1 tablet Orally Once a day for 90 days Jan, ActiveStart: 04-29-2018 End: 61-86-9205kfud 1 capsule by mouth once dailyverapamil 180 mg Cap-ER 180 mg = 1 cap(s), Oral, Daily, Refills(s) 0, Other (see comment) Start Date: 05/09/20 Status: Ordered Medication Dispense Status: Completed Total Allowed Fills: 1 Fills Dispensed: 0vitamin B12 (1 source)Vitamin K16Binpa: 40-17-7284Uuacppx B12 Refills(s) 0 Start Date: 09/30/25 Status: Ordered Medication Dispense Status: Completed Total Allowed Fills: 1 Fills Dispensed: 0 Completed/Discontinued Medications MedicationDrug Class(es)DatesSig (Normalized)Sig (Original)acetaminophen 500 mg oral tablet (2 sources)Start: 05-16-2022 End: 58-47-1762zwdkixrrnbdhl (TYLENOL) tablet 1,000 mgStart: 11-24-2020 End: 32-92-6929jkdgbctsrzodr (TYLENOL) tablet 650 mgazithromycin 250 mg oral tablet (14 sources)Macrolide AntimicrobialStart: 09-17-2024 End: 37-74-6350Uiuwdysxlsxp 250 mg tablet Discontinued 250 MG PO .COMPLEX 6 5 0 December 02, 2024 1:00am January 21, 2025 10:27am 2 tabs on first day followed by 1 tab on days 2-5cholecalciferol 0.025 mg oral capsule (12 sources)Vitamin DStart: 04-29-2018 End: 74-45-4965wjyq 1 capsule by mouth once dailyCholecalciferol (Vitamin D3) (Vitamin D3) 1,000 unit Capsule Discontinued 1000 UNIT PO daily April 29, 2018 12:00am January 22, 2024 12:44pmcitalopram 40 mg oral tablet (13 sources)Serotonin Reuptake InhibitorStart: 04-29-2018 End: 36-13-5446fxcz 1 tablet by mouth once daily in the eveningCitalopram 40 mg Tablet Discontinued 40 MG PO Every evening April 29, 2018 12:00am May 05, 2018 9:27am50 ml clindamycin 18 mg/ml injection (2 sources)Lincosamide AntibacterialStart: 05-07-2024 End: 90-51-9460gjiuwavvqlu (CLEOCIN) 900 mg in dextrose 5 % 50 mL IVPBStart: 11-24-2020 End: 22-80-3644weyppymdmiw (CLEOCIN) 900 mg in dextrose 5 % 50 mL IVPB dimenhyDRINATE 50 mg oral tablet (1 source)Start: 11-24-2020 End: 72-51-1785eakwdmaMNTOSOR (DRAMAMINE) tablet 50 mgdocusate sodium 100 mg oral capsule (20 sources)Start: 01-22-2024 End: 20-16-1457jrvn 1 capsule by mouth once dailyDocusate Sodium 100 mg capsule Discontinued 100 MG PO Daily August 04, 2024 10:39pm September 17, 2024 11:22amStart: 63-55-2321ultq 1 capsule by mouth twice daily as needed for constipationColace 100 mg Cap 100 mg = 1 cap(s), Oral, BID, PRN for constipation, # 20 cap(s), Refills(s) 0 Start Date: 05/09/20 Status: Orderedtake 1 capsule by mouth every other daydocusate sodium (COLACE) 100 MG capsule Take 1 capsule by mouth every other day Alternate with Fibercon 625 mg Active0.5 ml dulaglutide 3 mg/ml auto-injector (20 sources)GLP-1 Receptor AgonistStart: 12-02-2024 End: 74-64-1831Skszpohbdiz (Trulicity) 1.5 mg/0.5 mL pen injector Discontinued 1.5 MG SUBCUT every week December 02, 2024 3:00pm July 13, 2025 5:48pmStart: 06-12-2024 End: 18-87-3038Kdatwoxstfr (Trulicity) 0.75 mg/0.5 mL pen injector Discontinued 1.5 MG SUBCUT every week 02 27June 12, 2024 2:21pm September 17, 2024 11:21am Start: 02-04-2024 End: 86-91-7076kfuoct 0.75 mg by subcutaneous injection every weekDulaglutide (Trulicity) 0.75 mg/0.5 mL pen injector Discontinued 0 .ROUTE .COMPLEX 4 5 February 17, 2024 1:38pm June 12, 2024 2:21pm INJECT 0.75 MG SUBCUTANEOUSLY ONCE A WEEKStart: 01-15-2023 End: 78-68-1181Lgprevapdao (Trulicity) 1.5 mg/0.5 mL pen injector Discontinued 1.5 MG SUBCUT every week January 22, 2024 1:00am February 04, 2024 8:34am Start: 14-63-5597qbggvi 3 mg by subcutaneous injection every weekTrulicity Pen 3 mg/0.5 mL subcutaneous solution 3 mg, SubCutaneous, qWeek, Blood glucose Start Date: 01/08/22 Status: Ordered Medication Dispense Status: Completed Total Allowed Fills: 1 Fills Dispensed: 0Start: 71-93-1679mckhbo 3 mg by subcutaneous injection every weekTrulicity Pen 3 mg/0.5 mL subcutaneous solution 3 mg, SubCutaneous, qWeek, Blood glucose Start Date: 01/08/22 Status: OrderedStart: 04-29-2018 End: 79-62-5560Aeqrqftntzw (Trulicity) 0.75 mg/0.5 mL Pen Injector Discontinued 1 DOSE SUBCUT .QTUES April 29, 2018 12:00am January 22, 2024 12:43pm Dulaglutide (TRULICITY) 1.5 MG/0.5ML SOPN Inject 3 mg into the skin once a week Weekly on Saturday 0 Activegadoteridol (PROHANCE) injection 15 mL (1 source)Start: 11-17-2020 End: 33-53-7889gasihbpqkkd (PROHANCE) injection 15 mLlisinopril 20 mg oral tablet (20 sources)Angiotensin Converting Enzyme InhibitorStart: 07-21-2025 End: 26-75-0268kckv 1 tablet by mouth once dailyLisinopril 20 mg tablet Discontinued 0 .ROUTE .COMPLEX 28 July 21, 2025 8:31pm August 9:11pm TAKE 1 TABLET BY MOUTH DAILYStart: 01-08-2022 End: 92-39-7917muie 1 tablet by mouth once dailyLisinopril 20 mg tablet Discontinued 20 MG PO Daily January 22, 2024 1:00am August 04, 2024 10:39pmStart: 04-29-2018 End: 04-45-7856lcxs 1 tablet by mouth once dailyLisinopril 5 mg Tablet Discontinued 5 MG PO daily April 29, 2018 12:00am January 22, 2024 12:41pm take 4 tablets by mouth once daily in the morninglisinopril (PRINIVIL;ZESTRIL) 5 MG tablet Take 20 mg by mouth every morning 0 ActiveLORazepam 1 mg oral tablet (1 source)BenzodiazepineStart: 05-16-2022 End: 48-66-0627NINzazwdg (ATIVAN) tablet 1 mglurasidone hydrochloride 20 mg oral tablet (20 sources)Atypical AntipsychoticStart: 01-22-2024 End: 12-71-9367tpny 1 tablet by mouth once dailyLurasidone 20 mg tablet Discontinued 20 MG PO Daily January 22, 2024 1:00am July 15, 2025 4:37pm Start: 05-05-2018 End: 05-44-3715kxek 1 tablet by mouth once dailyLurasidone (Latuda) 40 mg Tablet Discontinued 80 MG PO Daily with supper 60 0 May 05, 2018 12:00am January 22, 2024 12:43pmStart: 04-29-2018 End: 16-68-9244kokh 1 tablet by mouth once daily in the eveningLurasidone (Latuda) 60 mg Tablet Discontinued 60 MG PO Every evening April 29, 2018 12:00am January 22, 2024 12:43pm End: 33-45-5450vyei 1 tablet by mouth every twenty-four hoursLatuda 20 MG 1 tablet in the evening with food Orally Once a day Activemirtazapine 15 mg oral tablet (12 sources)Start: 05-05-2018 End: 92-74-5385kuje 1 tablet by mouth once daily at bedtimeMirtazapine 15 mg Tablet Discontinued 15 MG PO Daily at bedtime 30 1 May 05, 2018 12:00am January 22, 2024 12:43pmMULTIPLE VITAMIN PO (1 source) End: 71-90-8419BYSRRFEZ VITAMIN PO Take by mouth every morning. 0 11/16/2020 Discontinued (Therapy completed)OLANZapine 5 mg oral tablet (1 source)Atypical AntipsychoticStart: 05-17-2022 End: 73-90-7892ZMSVRwzyjg (ZYPREXA) tablet 10 mgsulfamethoxazole 800 mg / trimethoprim 160 mg oral tablet (12 sources)Dihydrofolate Reductase Inhibitor Antibacterial, Sulfonamide AntimicrobialStart: 03-12-2024 End: 14-38-7296zpxf 1 tablet by mouth every twelve hoursSulfamethoxazole- Trimethoprim (Bactrim Ds) 800-160 mg tablet Discontinued 1 TAB PO Every 12 hours 20 10 0 March 12, 2024 12:00am January 21, 2025 10:27am Cellulitis of finger of right hand Cellulitis of right fingertraMADol hydrochloride 50 mg oral tablet (20 sources)Opioid AgonistStart: 04-29-2018 End: 69-14-9597xafn 1 tablet by mouth twice daily as needed for painTramadol 50 mg tablet Discontinued 50 MG PO Twice daily as needed for pain 168 84 0 September 17, 2024 10:18pm September 25, 2024 12:37pm Arthritis of both knees Bilateral primary osteoarthritis of knee 09/08take 1 tablet by mouth every twenty-four hourstraMADol HCl 50 MG 1 tablet as needed Orally Once a day Activevitamin e d- alpha 400 unt oral capsule (1 source) End: 46-08-5507yvnr 1 capsule by mouth once daily in the eveningvitamin E 400 UNIT capsule Take 400 Units by mouth every evening. 0 11/16/2020 Discontinued (Therapy completed)zolpidem tartrate 10 mg oral tablet (1 source)gamma-Aminobutyric Acid-ergic Agonist End: 44-71-9799jrlqvdzu (AMBIEN) 10 MG tablet Take by mouth nightly as needed for Sleep. 0 11/16/2020 Discontinued(Therapy completed) Problems Active Problems Problem ClassificationProblemDateDocumented DateEpisodic/ChronicAbdominal pain (20 sources)Abdominal pain; Translations: [Unspecified abdominal pain]Onset: 01-26-2014 Resolved: 944219-93-0754RjtcvkorJhfzw bronchitis (12 sources)Acute bronchitis; Translations: [Acute bronchitis, unspecified] Onset: 398651-18-3958HfhedwbkYlvod cerebrovascular disease (7 sources)Other cerebral infarction due to occlusion or stenosis of small artery; Translations: [Lacunar infarction]Onset: 176852-50-4993Vqrtvvk Allergic reactions (18 sources)Contact dermatitis; Translations: [Unspecified contact dermatitis, unspecified cause]Onset: 63-14-9573EhhgjzzaOsivvut disorders (20 sources)Generalized anxiety disorder; Translations: [Generalized anxiety disorder]ChronicAsthma (20 sources)Mild intermittent asthma; Translations: [Mild intermittent asthma, uncomplicated]Onset: 91-51-7754OrgoewaKryyzuozd infection; unspecified site (12 sources)Bacterial infectious disease; Translations: [Bacterial infection, unspecified, in conditions classified elsewhere and of unspecified site]Onset: 46-05-2438ZsxlcajgUxhhwxmzm and vision defects (1 source)Diplopia; Translations: [Diplopia]EpisodicCardiac dysrhythmias (20 sources)Intermittent palpitations; Translations: [Palpitations]Episodic Developmental disorders (6 sources)Developmental academic disorder; Translations: [Developmental disorder of scholastic skills, unspecified]Onset: 66-26-7238VfvqnesXpqwkmbi mellitus with complications (20 sources)Hyperglycemia due to type 2 diabetes mellitus; Translations: [Type 2 diabetes mellitus with hyperglycemia]Onset: 04-11-4456NwakdnjJpafibxb mellitus without complication (20 sources)Type 2 diabetes mellitus without complication; Translations: [Type 2 diabetes mellitus without complications]Onset: 249217-18-2956Iedmkth Disorders of lipid metabolism (20 sources)Hyperlipidemia; Translations: [Mixed hyperlipidemia]Onset: 873319-94-9655DlzkrckCbheiwljsyanya and diverticulitis (6 sources)Diverticular disease of colon; Translations: [Diverticulosis of large intestine without perforationor abscess without bleeding]ChronicEsophageal disorders (3 sources)Gastro-esophageal reflux disease with esophagitis; Translations: [Gastro-esophageal reflux disease with esophagitis, without bleeding]Onset: 84-98-9329PgdtfapNdpirylvhn disorders (3 sources)Esophageal disorders; Translations: [Gastro-esophageal reflux disease with esophagitis, without bleeding]Onset: 60-40-5354Jtzgqrrkt hypertension (20 sources)Essential hypertension; Translations: [Essential (primary) hypertension]Onset: 775267-23-1814TzhbdxkVlwamdi on above:Echo: LVEF 55%, normal RV size/function, RVSP 11/2021Genitourinary symptoms and ill-defined conditions (20 sources)Post-micturition incontinence ; Translations: [Urge incontinence of urine]Onset: 07-02-2023 Resolved: 225655-91-4120GhygfkgWllkmlkmwjoom symptoms and ill-defined conditions (20 sources)Dysuria; Translations: [Increased frequency of urination]Onset: 02-10-2014 Resolved: 699849-74-6773ZbzftgupKzdzisvz; including migraine (20 sources)Episodic tension-type headache; Translations: [Episodic tension-type headache, not intractable]31-46-2599ByvlnosScnwcnim; including migraine (19 sources)Headache; Translations: [Chronic headache disorder]Onset: 12-12-2015 69-94-6305BmwlhidaIgylo valve disorders (18 sources)Heart murmur; Translations: [O/E - cardiac murmur]Onset: 07-02-2023 Resolved: 606021-46-7306WcaaviqjKuwbbqwrspr of prostate (20 sources)Lower urinary tract symptoms due to benign prostatic hypertrophy; Translations: [Benign prostatic hyperplasia with lower urinary tract symptoms] Onset: 456233-70-6211FsbncojNxsvrvlxxpmqc and screening for infectious disease (12 sources)Contact with and (suspected) exposure to other viral communicable diseases; Translations: [Vaccination given] Resolved: 06-57-3917UvqhnynzQrqwbme control disorders, NEC (1 source)Homicidal thoughts; Translations: [Homicidal ideations]Episodic Influenza (1 source)Influenza due to other identified influenza virus with other respiratory manifestations; Translations: [Influenza due to identified 2009 H1N1 influenza virus with other respiratory manifestations]05-85-8425LybxxvmlMyvlg disorders and dislocations; trauma-related (8 sources)Derangement of left knee; Translations: [Unspecified internal derangement of left knee]Onset: 821940-57-1803KvzzhqtWasydfo and fatigue (20 sources)Fatigue; Translations: [Chronic fatigue, unspecified]Onset: 46-16-3876DuobudyRsqidhw and fatigue (20 sources)Weakness; Translations: [Malaise and fatigue]Onset: 01-26-2014 EpisodicMiscellaneous mental health disorders (20 sources)Mental disorder; Translations: [Primary insomnia]Onset: 07-02-2023 19-72-7279CamscegHola disorders (20 sources)Depressive disorder; Translations: [Depression with suicidal ideation]Onset: 974432-49-0185ItptvlcIyozlsf on above:Problem List clean- up per request of Phys. JULIUS CmteNutritional deficiencies (6 sources)Vitamin D deficiency; Translations: [Vitamin D deficiency, unspecified]Onset: 89-12-8220FpzouzjXxwovzrdhxhbsh (20 sources)Arthritis; Translations: [Arthritis of left knee]Onset: 07-02-2023 11-73-8389DfhehisIlkac aftercare (4 sources)Other rat exterminator (current) drug therapy; Translations: [OTH LONG-TERM CURRENT DRUG THERAPY]Onset: 68-20-6684NncingzbHptxn aftercare (5 sources)Drug therapy finding; Translations: [intermediate (current) use of opiate analgesic]50-41-7112MhejhyskEyrba aftercare (1 source)intermediate (current) use of opiate analgesic; Translations: [Long-term (current) use of other medications]87-16-1308QrwmxnveYlbqj and unspecified benign neoplasm (12 sources)History of polyp of colon; Translations: [Personal history of colonic polyps]Onset: 11-01-2022 Resolved: 14-81-1005TyhfdyttOpcxs and unspecified benign neoplasm (20 sources)Polyp of colon; Translations: [Polyp of colon]EpisodicOther circulatory disease (1 source)Orthostatic hypotension; Translations: [Orthostatic hypotension] 10-85-0524NrimqcktRvfhw circulatory disease (1 source)Orthostatic hypotension; Translations: [Orthostatic hypotension] 58-47-5632WarjjmjtRoaeg congenital anomalies (12 sources)Congenital chromosomal disease; 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, unspecified]Onset: 444716-90-4728EnqytxqUyywn congenital anomalies (20 sources)Stanley syndrome; 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]Onset: 500066-98-4909ChobgusFpivi congenital anomalies (6 sources)Congenital malformation syndrome; Translations: [Other specified multiple congenital anomalies, so described]Onset: 46-74-1152ChnptdvOkweq congenital anomalies (6 sources)Congenital pes planus; Translations: [Congenital pes planus, unspecified foot]Onset: 47-43-9452KzklrvkPkfzi congenital anomalies (11 sources)Stanley syndrome; 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]Onset: 512411-64-9301WdhuwsxDssps connective tissue disease (20 sources)History of right total knee replacement; Translations: [Presence of right artificial knee joint]ChronicOther connective tissue disease (1 source)Presence of right artificial knee joint; Translations: [History of total right knee replacement]ChronicOther connective tissue disease (4 sources)History of total knee arthroplasty; Translations: [Presence of right artificial knee joint]63-81-1235HgecgyrHdfwe diseases of kidney and ureters (18 sources)Vesicoureteric reflux; Translations: [Vesicoureteral-reflux, unspecified]Onset: 278983-85-9348YqqhqdkeRtxhi ear and sense organ disorders (12 sources)Hearing loss; Translations: [Unspecified hearing loss, unspecified ear]Onset: 111345-73-8346IeqpwdiStxoz ear and sense organ disorders (20 sources)Sensorineural hearing loss; Translations: [Unspecified sensorineural hearing loss]22-68-3729WxfdhvjOzbwe ear and sense organ disorders (8 sources)Mixed conductive AND sensorineural hearing loss; Translations: [Mixed conductive and sensorineural hearing loss, unilateral, right ear with restricted hearing on the contralateral side]Onset: hronic Other ear and sense organ disorders (3 sources)Impacted cerumen; Translations: [Impacted cerumen, right ear] 36-82-5227BpfwdyapKpcwu ear and sense organ disorders (3 sources)Impacted cerumen, right ear; Translations: [Impacted cerumen] 77-84-0276NjjdqbzyIzjuu eye disorders (1 source)Myopathy of extraocular muscles, bilateral; Translations: [Dysfunction of both inferior oblique muscles]ChronicOther eye disorders (1 source)Monocular exotropia with A pattern; Translations: [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]EpisodicOther eye disorders (1 source)Alternating exotropia; 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]Episodic Other gastrointestinal disorders (20 sources)Irritable bowel syndrome; Translations: [Mixed irritable bowel syndrome]08-47-4509WtdrmlfDwsmd gastrointestinal disorders (9 sources)Mixed irritable bowel syndrome; Translations: [Irritable bowel syndrome]ChronicOther gastrointestinal disorders (6 sources)Irritable bowel syndrome with diarrhea; Translations: [Irritable bowel syndrome with diarrhea]ChronicOther gastrointestinal disorders (1 source)Irritable bowel syndrome with diarrheaChronicOther gastrointestinal disorders (1 source)Digestive system finding; Translations: [Other specified symptoms and signs involving the digestivesystem and abdomen]Onset: 92-81-4276GtpzkxqsDibuu gastrointestinal disorders (12 sources)Dysphagia; Translations: [Dysphagia, unspecified]Onset: 11-01-2022 Resolved: 47-67-2498QjgunpouDvuaw gastrointestinal disorders (12 sources)Heartburn; Translations: [Heartburn]Onset: 11-01-2022 Resolved: 25-50-9939DyuropphYrpbz gastrointestinal disorders (11 sources)Irregular bowel habits; Translations: [Other specified symptoms and signs involving the digestive system and abdomen]Onset: 07-02-2023 Resolved: 127283-39-3781XtfpkkpwIrdxh gastrointestinal disorders (5 sources)Diarrhea; Translations: [Diarrhea, unspecified]Onset: 01-02-2023 EpisodicOther gastrointestinal disorders (4 sources)Diarrhea, unspecified; Translations: [Diarrhea]Onset: 09-30-2025 EpisodicOther gastrointestinal disorders (12 sources)Slow transit constipation; Translations: [Slow transit constipation] 50-20-6077DqsbwkptFwcgt gastrointestinal disorders (2 sources)Slow transit constipation; Translations: [Slow transit constipation] 29-83-8042MickbomjDcdky gastrointestinal disorders (1 source)HeartburnOnset: 16-08-1644WcxqlxftItqrc gastrointestinal disorders (1 source)Dysphagia, unspecifiedOnset: 16-28-2148TddqwmskSpfns hereditary and degenerative nervous system conditions (20 sources)Mild cognitive disorder ; Translations: [Mild cognitive impairment, so stated]ChronicOther hereditary and degenerative nervous system conditions (3 sources)Mild cognitive impairment, so stated; Translations: [MCI (mild cognitive impairment)]ChronicOther hereditary and degenerative nervous system conditions (1 source)Essential tremor; Translations: [ESSENTIAL TREMOR]Onset: 12-26-2022 ChronicOther hereditary and degenerative nervous system conditions (18 sources)Essential tremor; Translations: [Essential tremor]81-17-7548Jfqdyne Other hereditary and degenerative nervous system conditions (12 sources)Impaired cognition; Translations: [Mild cognitive impairment, so stated]30-68-2653NsuralvHhhju inflammatory condition of skin (20 sources)Rosacea; Translations: [Rosacea, unspecified]37-93-1367YozoknrGmghl inflammatory condition of skin (1 source)Rosacea, unspecifiedChronicOther inflammatory condition of skin (20 sources)Seborrheic dermatitis of scalp; Translations: [Seborrheic dermatitis, unspecified]66-29-1056BvnxdmlnDewsc inflammatory condition of skin (6 sources)Seborrheic dermatitis; Translations: [Seborrheic dermatitis, unspecified]EpisodicOther inflammatory condition of skin (2 sources)Seborrheic dermatitis, unspecified; Translations: [Other seborrheic dermatitis]46-57-6340TcizhgpsIznir injuries and conditions due to external causes (6 sources)Late effect of foreign body in orifice; Translations: [Unspecified foreign body in respiratory tract, part unspecified causing other injury, sequela]EpisodicOther lower respiratory disease (1 source)Shortness of breath; Translations: [SHORTNESS OF BREATH]Onset: 45-15-5651IeluktlxKqrdu lower respiratory disease (1 source)Dyspnea, unspecified; Translations: [Other respiratory abnormalities] 24-21-6287DcnuburkUvewt male genital disorders (18 sources)Disorder of male genital organ; Translations: [Other specified disorders of the male genital organs]Onset: 07-02-2023 Resolved: 154849-84-8483GlkpvwdaXjmcu male genital disorders (12 sources)Swelling of testicle; Translations: [Other specified disorders of the male genital organs]Onset: 07-02-2023 Resolved: 994230-68-1525TdjouhwzAhfos male genital disorders (20 sources)Hydrocele; Translations: [Hydrocele, unspecified]EpisodicOther male genital disorders (7 sources)Hydrocele, unspecified; Translations: [Hydrocele]EpisodicOther nervous system disorders (1 source)Aphasia; Translations: [Aphasia]Onset: 65-93-6687VzpnncpTpinh nervous system disorders (6 sources)Aphasia; Translations: [Aphasia]15-63-3485GgwhehuNqjpj nervous system disorders (4 sources)Tremor, unspecified; Translations: [TREMOR UNSPECIFIED]Onset: 92-07-6839SjjtqomhXjwoi nervous system disorders (16 sources)Tremor; Translations: [Tremor, unspecified]Onset: 04-15-2024 91-87-9544JrikkrhsDdhep non-traumatic joint disorders (20 sources)Hip pain; Translations: [Pain in unspecified hip]EpisodicOther non- traumatic joint disorders (6 sources)Arthralgia of the pelvic region and thigh; Translations: [Pain in unspecified hip]EpisodicOther non-traumatic joint disorders (1 source)Pain in unspecified hip; Translations: [Hip pain]EpisodicOther nutritional; endocrine; and metabolic disorders (20 sources)Obesity; Translations: [Obesity, unspecified]ChronicOther nutritional; endocrine; and metabolic disorders (12 sources)Body mass index 30+ - obesity; Translations: [Body mass index 30.0- 30.9, adult]Onset: 53-97-0727HstwfjnZuiso nutritional; endocrine; and metabolic disorders (6 sources)Simple obesity ; Translations: [Other obesity due to excess calories] Onset: 38-52-9425LesykkmExzzp nutritional; endocrine; and metabolic disorders (1 source)Obesity, unspecified; Translations: [Obesity (BMI 30-39.9)]Chronic Other screening for suspected conditions (not mental disorders or infectious disease) (16 sources)Encounter for screening for malignant neoplasm of prostate; Translations: [Patient encounter status]EpisodicOther skin disorders (6 sources)Generalized hyperhidrosis; Translations: [Generalized hyperhidrosis] EpisodicOther upper respiratory infections (8 sources)Chronic pansinusitis; Translations: [Chronic pansinusitis]Onset: 569838-56-6081OcndfrsSjgfh upper respiratory infections (19 sources)Acute upper respiratory infection; Translations: [Acute upper respiratory infection, unspecified]Onset: 73-99-7507QyeukiyvCznvfjaqg by nonmedicinal substances (6 sources)Toxic effect of venom of other arthropod, accidental (unintentional), sequela; Translations: [Toxiceffect of venom of other arthropod, accidental (unintentional), sequela]EpisodicResidual codes; unclassified (4 sources)Sleep -55-1876IwormevZmlikcfv codes; unclassified (20 sources)Obstructive sleep apnea syndrome; Translations: [Obstructive sleep apnea (adult) (pediatric)]Onset: 548632-55-8733TdesytoCipldrhb codes; unclassified (15 sources)Obstructive sleep apnea (adult) (pediatric); Translations: [Obstructive sleep apnea (adult)(pediatric)]ChronicSchizophrenia and other psychotic disorders (20 sources)Schizophrenia; Translations: [Schizoaffective disorder, bipolar type]Onset: 809616-47-8069PupuhlyGrue and subcutaneous tissue infections (18 sources)Cellulitis of right lower limb; Translations: [Cellulitis of right lower limb] Resolved: 133182-40-8979DbheofboBvrgpbvnash; intervertebral disc disorders; other back problems (8 sources)Low back pain; Translations: [Low back pain, unspecified] Resolved: 316180-82-4656FrigcptbXwjibli and intentional self-inflicted injury (1 source)Suicidal thoughts; Translations: [Suicidal ideations]Episodic Unclassified (1 source)Patient encounter status; Translations: [Preoperative testing] Unclassified (3 sources)Finding of sensation of irwcmpy44-31-5824Yepsweeztezv (3 sources)Other specified cough; Translations: [Other specified cough]Onset: 57-35-8260Rhyybwktiqva (2 sources)pre admission testing; Translations: [pre admission testing]Onset: 05-01-2024 Past or Other Problems Problem ClassificationProblemDateDocumented DateEpisodic/ChronicInflammation; infection of eye (except that caused by tuberculosis or sexually transmitteddisease) (6 sources)Acute conjunctivitis; Translations: [Unspecified acute conjunctivitis]Onset: 27-75-1815EqlicmcaYkyblajxpycz conditions of male genital organs (6 sources)Orchitis and epididymitis; Translations: [Epididymo-orchitis] Resolved: 84-30-5931YderugckKheoa disorders and dislocations; trauma-related (6 sources)Current tear of medial cartilage AND/OR meniscus of knee; Translations: [Tear of medial cartilage or meniscus of knee, current]Onset: 42-78-0825PlauvmzkJqztfdond of unspecified nature or uncertain behavior (18 sources)Neoplasm of lung ; 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, bronchus and lung]Onset: 387570-50-6923QtkyaycjModod aftercare (6 sources)High risk drug monitoring status; Translations: [intermediate accountant (current) use of opiate analgesic]Onset: 58-73-0491MfpkpgimPalmd connective tissue disease (14 sources)Artificial knee joint present; Translations: [Presence of right artificial knee joint]Onset: 01-23-2022 Resolved: 139263-61-4204WancxnbGokdj connective tissue disease (4 sources)Other bursitis of hip, left hip; Translations: [OTHER BURSITIS OF HIP LEFT HIP]Onset: 74-95-2927NmtvzjlmIammg connective tissue disease (6 sources)Disorder of musculoskeletal system; Translations: [Other symptoms and signs involving the musculoskeletal system] Resolved: 95-63-6182WzzccfmeBsiio connective tissue disease (6 sources)Achilles bursitis; Translations: [Achilles bursitis or tendinitis] Onset: 85-48-7698RuitlykzWuoxn connective tissue disease (6 sources)Tear of right rotator cuff; Translations: [Unspecified rotator cuff tear or rupture of right shoulder, not specified as traumatic]Onset: 11-22-2017 EpisodicOther diseases of kidney and ureters (8 sources)Reflux of urine; Translations: [Vesicoureteral-reflux, unspecified] Onset: 07-02-2023 Resolved: [id number] ear and sense organ disorders (8 sources)Subjective tinnitus; Translations: [Tinnitus, unspecified ear]Onset: [id number]k ear and sense organ disorders (8 sources)Otorrhea of left ear; Translations: [Otorrhea, left ear]Onset: [id number] lower respiratory disease (12 sources)Lung field abnormal; Translations: [Other nonspecific abnormal finding of lung field]Onset: 42-01-9164DbuugdnyIzagj lower respiratory disease (6 sources)Chronic cough; Translations: [Chronic cough]Onset: 34-35-1144Epnhfqve Other lower respiratory disease (9 sources)Cough; Translations: [Cough, unspecified]Onset: 66-81-8764Bfkmufei Other nervous system disorders (8 sources)Antalgic gait; Translations: [Other abnormalities of gait and mobility]Onset: 557664-10-4718FadmoxgjDjxjt nervous system disorders (8 sources)Other symptoms and signs involving cognitive functions and awareness; Translations: [Other signs and symptoms involving cognition]Onset: 04-16-2024 49-56-7408MrlxbdtlBtkff non-traumatic joint disorders (1 source)Pain in left shoulder; Translations: [PAIN IN LEFT SHOULDER]Onset: 52-72-1563XlwyfavtMskiv non-traumatic joint disorders (6 sources)Shoulder joint pain; Translations: [Pain in joint, shoulder region] Onset: 59-36-5082GlsjvuflScnrc non-traumatic joint disorders (6 sources)Arthralgia of the ankle and/or foot; Translations: [Pain in unspecified ankle and joints of unspecified foot]Onset: 87-90-7485HavacviuMquac nutritional; endocrine; and metabolic disorders (20 sources)Obese class I; Translations: [Body mass index 32.0-32.9, adult] Onset: 01-26-2014 Resolved: [id number] nutritional; endocrine; and metabolic disorders (6 sources)Body mass index 25-29 - overweight; Translations: [Body mass index 29.0-29.9, adult]Onset: 61-83-8769MtlosgwmCempe nutritional; endocrine; and metabolic disorders (6 sources)Overweight; Translations: [Overweight]Onset: 37-64-4218OyyplibjEgzcd skin disorders (2 sources)Ingrowing nail; Translations: [Ingrowing nail]Onset: 05-07-2024 EpisodicOtitis media and related conditions (8 sources)Dysfunction of bilateral eustachian tubes; Translations: [Unspecified Eustachian tube disorder, bilateral]Onset: 118658-25-9170Klnzmgzy Pleurisy; pneumothorax; pulmonary collapse (20 sources)Obstructive atelectasis; Translations: [Atelectasis]Onset: 02-28-2018 Resolved: 361265-90-7667HehikvyiJhanbtaax (except that caused by tuberculosis or sexually transmitted disease) (6 sources)Infective pneumonia; Translations: [Pneumonia due to other specified infectious organisms]Onset: 18-83-3479EjhnnbjsKhgmyxay codes; unclassified (6 sources)Insomnia; Translations: [Insomnia, unspecified] Resolved: 23-52-0920YzhttgmcPmbelcni codes; unclassified (6 sources)Requires influenza virus vaccination; Translations: [Need for prophylactic vaccination and inoculation, Influenza]Onset: 37-83-2153Ihojavno Sprains and strains (18 sources)Strain of muscle of left hip; Translations: [Strain of muscle, fascia and tendon of left hip, initial encounter]Onset: 06-63-4234Ydnpzero Superficial injury; contusion (12 sources)Contusion of abdominal wall; Translations: [Contusion of abdominal wall]Onset: 03-17-2015 Resolved: 50-96-5645EdiwpsypQqkprwavhaik (5 sources)Nocturnal polyuria; Translations: [Nocturnal polyuria] Resolved: 84-18-1610Beeruxgalnxw (1 source)Nocturnal polyuria; Translations: [Nocturnal polyuria] Resolved: 01-15-2022 Results Test NameValueInterpretationReference RangeFacilityAmbulatory Visit Summaryon 34-36-4067Rsvnumrjqe Visit SummaryAmbulatory Visit Summary HARI THORNTON :1975 Visit Date:09/30/2025 Ambulatory Visit Instructions Your Diagnosis Dysphagia Diarrhea Heartburn Your Care Team Attending Physician - Carlos Patel MD Primary Care Physician - NARAYAN GAGNON DO Referring Physician - NARAYAN GAGNON DO This Is Your Medications List esomeprazole (Nexium 40 mg Cap-EC) famotidine (famotidine 40 mg Tab) Contact prescribing physician if questions or concerns aspirin (aspirin 81 mg Chew Tab) bacillus coagulans (Probiotic Digestive Aid Gummies) baclofen (baclofen 5 mg oral tablet) benazepril (benazepril 20 mg Tab) carbidopa-levodopa (carbidopa-levodopa 25 mg-100 mg Tab) clonazepam cyanocobalamin (Vitamin B12) divalproex sodium (divalproex sodium 500 mg ER Tab) dulaglutide (Trulicity Pen 3 mg/0.5 mL subcutaneous solution) duloxetine (duloxetine 60 mg oral delayed release capsule) empagliflozin (Jardiance 25 mg oral tablet) glimepiride (glimepiride 2 mg Tab) iloperidone (Fanapt 6 mg oral tablet) polycarbophil (Fiber Lax 625 mg oral tablet) pravastatin (pravastatin 20 mg Tab) primidone (primidone 50 mg Tab) tizanidine (tizanidine 4 mg oral capsule) tramadol (tramadol 50 mg oral tablet) trazodone (traZODONE 100 mg Tab) verapamil (verapamil 180 mg Cap-ER) Procedures Performed Colonoscopy (01/02/2023), Esophagogastroduodenoscopy (01/02/2023), Total knee arthroplasty (01/22/2022), Total knee replacement (01/22/2022), Hydrocelectomy (07/28/2020), Arthroscopy of knee, Bilateral inguinal hernia repair, Carpal tunnel release, Excision of cholesteatoma, History of repair of umbilical hernia, Laser eye surgery, Nasal polypectomy, Removal of toenail. Discharge Vitals Heart Rate (Peripheral) 81 Respiratory Rate 20 Blood Pressure 149/62 Height 171 cm Height 67 in Weight 88 kg Weight 194.007 lb BMI 30.09 What to do next Scheduled Follow-Up Appointments Saturday 1:00 PM EST With: Jazmine Guadarrama PA-C Where: [facility] You Need to Complete the Following Calprotectin, Fecal, Stool, Routine collect, 09/30/25, Order for future visit, Nurse collect, Dysphagia, Not Required, Print Label By Order Location Celiac Disease Comprehensive, Blood, Routine collect, 09/30/25, Order for future visit, Lab Collect, Dysphagia, Not Required, Print Label By Order Location Clostridium Difficile PCR, Stool, Routine collect, 09/30/25, Order for future visit, Nurse collect,Dysphagia, Print Label By Order Location Enteric Panel by PCR, Stool, Routine collect, 09/30/25, Order for future visit, Nurse collect, Dysphagia, Required & Missing, Print Label By Order Location O & P Exam, Routine, Stool, Routine collect, 09/30/25, Order for future visit, Nurse collect, Dysphagia, Not Required, Print Label By Order Location Pancreatic Elastase, Fecal, Stool, Routine collect, 09/30/25, Order for future visit, Nurse collect, Dysphagia, Not Required, Print Label By Order Location Medications What How Much When Instructions New esomeprazole (Nexium 40 mg Cap-EC) 1 Capsules By Mouth Every day before dinner Pickup at [facility] 1622 New famotidine (famotidine 40 mg Tab) 1 Tablets By Mouth Once a day (at bedtime) Pickup at [facility] 1622 Unchanged aspirin (aspirin 81 mg Chew Tab) 1 Tablets Chewed Every day Contact prescribing physicianif questions or concerns Unchanged bacillus coagulans (Probiotic Digestive Aid Gummies) Chewed 2 times a day Contact prescribing physician if questions or concerns Unchanged baclofen (baclofen 5 mg oral tablet) By Mouth 3 times a day Contact prescribing physicianif questions or concerns Unchanged benazepril (benazepril 20 mg Tab) By Mouth Every day Contact prescribing physician if questions or concerns Unchanged carbidopa-levodopa (carbidopa-levodopa 25 mg-100 mg Tab) 1 Tablets By Mouth 3 times a dayContact prescribing physician if questions or concerns Unchanged clonazepam 1 Milligram By Mouth 2 times a day Contact prescribing physician if questions or concerns Unchanged cyanocobalamin (Vitamin B12) Contact prescribing physician if questions or concerns Unchanged divalproex sodium (divalproex sodium 500 mg ER Tab) 1 Tablets By Mouth 2 times a day Contact prescribing physician if questions or concerns Unchanged dulaglutide (Trulicity Pen 3 mg/ 0.5 mL subcutaneous solution) 3 Milligram Subcutaneous Every week Contact prescribing physician if questions or concerns Unchanged duloxetine (duloxetine 60 mg oral delayed release capsule) Contact prescribing physician if questions or concerns Unchanged empagliflozin (Jardiance 25 mg oral tablet) 1 Tablets Contact prescribing physician if questions or concerns Unchanged glimepiride (glimepiride 2 mg Tab) 1 Tablets By Mouth Every day Contact prescribing physician if questions or concerns Unchanged iloperidone (Fanapt 6 mg oral tablet) 1 Tablets By Mouth 2 times a (more content not included)...[facility]/Clinic Noteon [id number] Office/Clinic Note Gastroenterology Office/Clinic Note Chief Complaint dr benedict for dysphagia HPI Staff Established patient is a(n) 50 year old male who was referred back by Dr. Chapin Gagnon for dysphagia with hx of esophageal stricture. Dysphagia: When did it start: long time ago. Solids or liquids: solids and liquids. even cutting up food. Any blood thinners? no. Any GLP-1 agonists? Trulicity. History of Present Illness Reviewed HPI collected by staff Review of Systems PHQ Score Initial Depression Screen Score: 0 SCORE All systems reviewed, negative; Except for above Physical Exam Vitals & Measurements HR: 81(Peripheral) RR: 20 BP: 149/62 HT: 171 cm HT: 67 in WT: 88 kg WT: 194.007 lb BMI: 30.09 No acute distress Procedure EGD/Colonoscopy 01/02/23 w/Dr. Fitzpatrick: Impression and Plan 1. Proximal esophageal ring, dilated using 56 Norwegian Engle dilator 2. Normal gastric mucosa, biopsied to rule out H. pylori Impression: 1. Normal terminal ileum, photograph taken 2. Normal colonic mucosa, random biopsies obtained from ascending colon and rectum to rule out microscopic colitis 3. Sessile polyp, 5 mm in the ascending, removed completely with cold snare 4. Severe diverticulosis in the sigmoid and descending colon 5. Moderate nonbleeding internal hemorrhoids Recommendations: Repeat colonoscopy:: In 5 years, Pending pathology results. Pathology: Final Diagnosis (Verified) A: STOMACH, BIOPSY: ??? GASTRIC MUCOSA WITH MILD CHRONIC INFLAMMATION IN LAMINA PROPRIA. ??? NO H. PYLORI MICROORGANISMS IDENTIFIED WITH IMMUNOSTAIN. B: COLON, RANDOM BIOPSY: ??? COLONIC MUCOSA WITH LYMPHOID AGGREGATES, WITHIN NORMAL LIMITS. C: POLYP, ASCENDING COLON, POLYPECTOMY: ??? TUBULAR ADENOMA. Assessment/Plan 1. Dysphagia (R13.10: Dysphagia, unspecified) Chronic With solids and liquids Worse with pop Had relief with dilation in the past EGD 12/2022: Proximal esophageal ring, dilated using 56 Norwegian Engle dilator - Schedule EGD with possible dilation to evaluate. Discussed risks such as bleeding, injury and perforation as well as benefits. Patient agreeable. Hold Trulicity a week prior 2. Diarrhea (R19.7: Diarrhea, unspecified) Alternates with constipation Having about 10 BMs on some days Denies blood in the stools Taking fiber Denies hx of cholecystectomy Colonoscopy 12/2022: Severe diverticulosis in the sigmoid and descending colon, Moderate nonbleedinginternal hemorrhoids. TA removed from ascending - Labs and stool testing ordered - Imodium as needed, be careful to avoid constipation 3. Heartburn (R12: Heartburn) Chronic - Nexium at dinner, Pepcid at bedtime - Discussed LSM: Avoid laying down for 4 hours after eating, lay on left side, avoid trigger foods,elevate head of bed I, Kristyn Erazo, personally scribed for Carlos Patel on 09/30/2025 14:48:02. . Follow-up No qualifying data available Problem List/Past Medical History Ongoing Abdominal cramping Abdominal pain Arthritis Bilateral ureteral reflux Chronic headaches Congenital chromosomal disease Depression Diabetes mellitus Diarrhea Dysphagia Dysuria Hearing loss Heart murmur Heartburn History of colon polyps Hydrocele Hyperlipidemia Hypertension Irregular bowel habits Neoplasm of lung Nocturia Obstructive atelectasis Post-void dribbling Proteinuria Psychiatric illness Testicular swelling Type 2 diabetes mellitus Urge incontinence Urinary frequency Stanley syndrome Stanley syndrome Historical No qualifying data Procedure/Surgical History Colonoscopy (01/02/2023), Esophagogastroduodenoscopy (01/02/2023), Total knee arthroplasty (01/22/2022), Total knee replacement (01/22/2022), Hydrocelectomy (07/28/2020), Arthroscopy of knee, Bilateral inguinal hernia repair, Carpal tunnel release, Excision of cholesteatoma, History of repair of umbilical hernia, Laser eye surgery, Nasal polypectomy, Removal of toenail. Medications aspirin 81 mg Chew Tab, 81 mg= 1 tab(s), Chewed, Daily baclofen 5 mg oral tablet, Oral, TID benazepril 20 mg Tab, Oral, Daily carbidopa-levodopa 25 mg-100 mg Tab, 1 tab(s), Oral, TID clonazepam, 1 mg, Oral, BID divalproex sodium 500 mg ER Tab, 500 mg= 1 tab(s), Oral, BID duloxetine 60 mg oral delayed release capsule famotidine 40 mg Tab, 40 mg= 1 tab(s), Oral, Once a day (at bedtime) Fanapt 6 mg oral tablet, 6 mg= 1 tab(s), Oral, BID Fiber Lax 625 mg oral tablet, 625 mg= 1 tab(s), Oral, Every other day, Not taking glimepiride 2 mg Tab, 2 mg= 1 tab(s), Oral, Daily Jardiance 25 mg oral tablet, 25 mg= 1 tab(s) Nexium 40 mg Cap-EC, 40 mg= 1 cap(s), Oral, Daily pravastatin 20 mg Tab, 20 mg= 1 tab(s), Oral, Once a day (at bedtime) primidone 50 mg Tab, 25 mg= 0.5 tab(s), Oral, Once a day (at bedtime) Probiotic Digestive Aid Gummies, Chewed, BID tizanidine 4 mg oral capsule, 4 mg= 1 cap(s), Or (more content not included)... [facility] HospitalComment on above:Result Comment: Electronically Signed By: Carlos Patel MD\.br\Date and Time Signed: 09/30/25 15:36 EST\.br\Electronically Co-Signed By: Kristyn Erazo MA\.br\Date and Time Co- Signed: 09/30/25 14:54 ESTXR Spine Cervical 4 or 5 Viewson [id number] Spine Cervical 4 or 5 ViewsExam Date/Time: 08/19/2025 14:13 EDT Reason for Exam: M47.812 Report IMPRESSION: MILD TO MODERATE CERVICAL SPONDYLOSIS. EXAM: XR Spine Cervical 4 or 5 Views DATE: 08/19/2025 1:49 PM CLINICAL HISTORY: M47.812. Technologist Comments: pt. c/o neck pain, numbness and tingling down left arm, denies any prev sx. COMPARISON: None available. TECHNIQUE: AP, lateral, oblique, and odontoid radiographs of the cervical spine were obtained. FINDINGS: Mild reversal of the normal cervical lordosis is likely related to patient positioning and/or muscle spasm. Mild to moderate disc space narrowing with posterolateral endplate osteophytosis is present of the mid to lower cervical levels, with mild to moderate neural foraminal narrowing worst on the right at C5-C6. There is no compression, fracture, significant subluxation, worrisome bone destruction, or other findings of concern identified. The visualized paraspinous soft tissues are unremarkable. Ordering Provider: Anupam Monroe FINAL REPORT Dictated: 08/20/2025 3:58 pm Parish Walker MD Signed (Electronic Signature): 08/20/2025 3:58 pm Signed by: Parish Walker MD Transcribed by: GARCIA Technologist: YolyWadsworth-Rittman HospitalXR Knee - right 3 Viewson [id number] Result: X-rays, permanently saved to the patient's record, are reviewed AP, lateral and sunrise views in the [place] office taken today show stable position and alignment of the right knee prosthesis. No sign of loosening or infection. The left knee does have moderate to severe degenerative changes that are grade III. There are prior interference screws of the tibia and femur from prior anterior cruciate ligament reconstruction in years past.[facility]XR K[facility] - right 3 Viewson [id number] Study observation (narrative)[facility] SystemHbA1c HPLC (Bld) [Mass fraction]on 79-07-9001ZlI1t (Bld) [Mass fraction]7.3 %[facility] CampusGlucose mean value [Mass/volume] in Blood Estimated from glycated hemoglobinon 81-07-4358Teejxqp glucose Estimated from glycated hemoglobin (Bld) [Mass/Vol]Glucose mean value [Mass/volume] in Blood Estimated from glycated hemoglobinKettering Health Main CampusHemoglobin A1c percentageon 62-72-4136BzA4s (Bld) [Mass fraction]Hemoglobin A1c percentageHigh 4.5-6.2FTriHealth Bethesda Butler HospitalComment on above:ADA RECOMMENDED LIMIT 4.0 - 6.0ADA THERAPEUTIC TARGET < 7.0ACTION SUGGESTED> 7.0Basophils Auto (Bld) [#/Vol]on 57-17-2247Morelacuu (Bld) [#/Vol]Automated basophil count0.0-0.1 [facility] CampusBasophils/100 WBC Auto (Bld)on 12-11-2024 Basophils/100 WBC (Bld)Automated basophil %0.2-2.0[facility] CampusEosinophils/100 WBC Auto (Bld)on 00-31-0797Dxmceodvgtk/100 WBC (Bld) Automated eosinophil %Low0.9-7.0[facility] CampusErythrocyte distribution width Auto (RBC) [Ratio]on 47-91-9396Eqctxdvcglz distribution width (RBC) [Ratio]Erythrocyte distribution width [Ratio] by Automated count11.0-15.0 [facility] CampusEstimated glomerular filtration rate (GFR) non- Americanon 54-54-7286HUN/1.73 sq M.predicted among non-blacks MDRD (S/P/Bld) [Vol rate/Area]Estimated glomerular filtration rate (GFR) non->=60 mL/min/1.73m 2FTriHealth Bethesda Butler HospitalGlobulin Calc (S) [Mass/Vol]on 34-69-6293Hukjktgs (S) [Mass/Vol]Serum globulin measurement by calculation (mass/volume)[facility] CampusHematocrit Auto (Bld) [Volume fraction]on 98-56-4314Pmrmyxcknz (Bld) [Volume fraction]Hematocrit [Volume Fraction] of Blood by Automated ygdfdUzu16.0-54.0[facility] CampusHemoglobin [Mass/volume] in Bloodon 95-19-4536Bgvfplxukx (Bld) [Mass/Vol]Hemoglobin [Mass/volume] in Blood14.0-18.0[facility] CampusINR in Platelet poor plasma by Coagulation assayon 31-21-5413ZFB Coag (PPP) [Relative time]INR in Platelet poor plasma by Coagulation assayKettering Health Main CampusComment on above:DESIRED INR:2.0-3.0 CONDITIONS NOT LISTED BELOW2.5-3.5 FOR PROSTHETIC HEART VALVE REPLACEMENT2.5-3.5 RECURRENT THROMBOSISLaboratory - Chemistry and Chemistry - challengeon 96-97-2766Vjydhlsre Ql (U)NegativeNEGATIVEKettering Health Main CampusGlucose (U) [Mass/Vol] mg/dLAbnormalNEGATIVEKettering Health Main CampusKetones Ql (U)40 mg/dL AbnormalNEGATIVEKettering Health Main CampuspH (U)6.0 [pH]5.0-9.0[facility] Hospitalpecific gravity (U) [Rel density]1.0101.005-1.025 [facility] CampusUrobilinogen Qn (U)0.2 {Steve'U}/dL0.2-1.0 [facility] CampusAlbumin [Mass/Vol]3.8 g/dL3.4-5.0[facility] CampusALP [Catalytic activity/Vol]55 U/O74-703IfqkonybhKettering Health Main CampusALT [Catalytic activity/Vol]32 U/C18-46GurlpvzzcKettering Health Main CampusAST [Catalytic activity/Vol]21 U/W24-68DmwtjoqirKettering Health Main CampusBilirubin [Mass/Vol]0.4 mg/dL0.2-1.0[facility] Calcium [Mass/Vol]9.6 mg/dL8.5-10.1FTriHealth Bethesda Butler HospitalChloride [Moles/Vol]102 mmol/O31-307OikgluttwKettering Health Main CampusCO2 [Moles/Vol]23.5 mmol/L21.0-32.0[facility] CampusCreatinine [Mass/Vol]0.85 mg/dL 0.70-1.30[facility] CampusGFR/1.73 sq M.predicted MDRD (S/P/Bld) [Vol rate/Area]mL/min/{1.73_m2}>=60 mL/min/1.73m 2FTriHealth Bethesda Butler HospitalGlucose [Mass/Vol]132 mg/sFSkmk87-172YopagwtydKettering Health Main Campus Lactate [Moles/Vol]1.4 mmol/L0.4-2.0[facility] CampusMagnesium [Mass/Vol]1.9 mg/dL1.8-2.4FTriHealth Bethesda Butler HospitalPotassium [Moles/Vol] 3.7 mmol/L3.5-5.1FTriHealth Bethes[facility] Butler HospitalProtein [Mass/Vol]7.4 g/dL 6.4-8.2FMercy Health Fairfield Hospitalodium [Moles/Vol]140 mmol/X114-469 [facility] CampusUrea nitrogen [Mass/Vol]8.0 mg/dL7.0-18.0 [facility] CampusUrea nitrogen/Creatinine [Mass ratio]9.4 mg/mg [facility] CampusLaboratory - Hematology and Cell countson 94-41-5550Mjznfgpb granulocytes/100 WBC (Bld)0.7 %High0.0-0.5FTriHealth Bethesda Butler HospitalLaboratory - Microbiology and Antimicrobial susceptibilityon 51-08-6161FLRM-CoV-2 (COVID-19) RNA SHANEKA+probe Ql (Unsp spec)NegativeNEGATIVE [facility] CampusComment on above:This test has not been FDA cleared or approved, but has beenauthorized by the FDA under an Emergency Use Authorization(EUA) for use by authorized laboratories certified underCLIA that meet the requirements to perform moderate or highcomplexity testing. This test has been authorized only forthe detection of proteins from SARS-CoV-2, not for any otherviruses or pathogens. The emergency use of this test isauthorized for the duration of the declaration thatcircumstances exist justifying the authoriz ation ofemergency use of in vitro diagnostic tests for detectionand/or diagnosis of Covid-19 under section 564(b)(1) of theAct, 21 U.S.C. 360bbb-3(b)(1), unless the declaration isterminated or authorization is revoked sooner.Laboratory - Specimen informationon 86-26-6881Eyqfuwprqq (U)CLEARCLECleveland Clinic FoundationColor (U)LT. YELLOWYELOhio State University Wexner Medical Center Laboratory - Urinalysison 15-60-2730Tuhorensp esterase Test strip Ql (U)Negative NEGATIVEKettering Health Main CampusNitrite Ql (U)NegativeNEGATIVEKettering Health Main CampusProtein Ql (U)NegativeNEG/TRACEKettering Health Main CampusLeukocytes [#/volume] corrected for nucleated erythrocytes in Blood by Automated counon 66-11-4216VQQ corrected for nucl RBC Auto (Bld) [#/Vol] Leukocytes [#/volume] corrected for nucleated erythrocytes in Blood by Automated coun4.0-11.0[facility] CampusLymphocytes Auto (Bld) [#/Vol]on 96-70-7393Ukpvareaims (Bld) [#/Vol]Lymphocytes [#/volume] in Blood by Automated countLow1.2-3.8[facility] CampusLymphocytes/100 WBC Auto (Bld)on 38-39-7718Wztrtdpwjyf/100 WBC (Bld)Lymphocytes/100 leukocytes in Blood by Automated bkpohVgq51.5-60.0[facility] HospitalH Auto (RBC) [Entitic mass]on 62-38-1433XFY (RBC) [Entitic mass]MCH [Entitic mass] by Automated count25.9-34.0[facility] HospitalHC Auto (RBC) [Mass/Vol]on 09-38-6199XLDP (RBC) [Mass/Vol]MCHC [Mass/volume] by Automated count29.9-35.2FTriHealth Bethesda Butler HospitalMCV Auto (RBC) [Entitic vol]on 71-44-5125DYK (RBC) [Entitic vol]MCV [Entitic volume] by Automated count 80.0-94.0[facility] CampusMonocytes Auto (Bld) [#/Vol]on 09-71-7258Segahmvdh (Bld) [#/Vol]Automated blood monocyte count0.3-0.8[facility] CampusMonocytes/100 WBC Auto (Bld)on 61-26-8332Fwofnrupn/100 WBC (Bld)Automated monocyte %High1.7-12.0[facility] Neutrophils Auto (Bld) [#/Vol]on 14-65-7563Gnvfnwdymuq (Bld) [#/Vol]Neutrophils [#/volume] in Blood by Automated count1.4-6.5FTriHealth [facility] Hospital Neutrophils/100 WBC Auto (Bld)on 70-04-5575Civefjtgwif/100 WBC (Bld)Automated neutrophil %43.0-75.0[facility] CampusNo Panel Informationon 92-50-5774Asuoq Microscopic ReviewSumma Health Akron CampusUrine Occult BloodNegativeNEGATIVEKettering Health Main CampusBedside Influenza Type A AntigenPositiveAbnormOhioHealth O'Bleness HospitalComment on above: NOTE: Live attenuated influenza vaccine viruses can cause apositive result for a rapid influenza diagnostic test ifadministered up to 7 days prior to rapid testing.Bedside Influenza Type B AntigenNegativeKettering Health Main CampusComment on above:Negative for Flu B protein antigen. Infection due to Flu Bcannot be ruled out. Flu B antigen in thesample may bebelow the detection limit of the test.RSV RNA Qual (PCR)(MISC)Not detectedNOT DETECTKettering Health Behavioral Medical CenterEosinophils # (Auto)0.0 10 3/uL0.0-0.7FTriHealth Bethesda Butler HospitalImmature Granulocyte # (Auto)0.03 10 3/uL0.00-0.03[facility] CampusTroponin I High Sensitivity6.0 pg/mL4.0-76.1FTriHealth Bethesda Butler HospitalComment on above:CUT-OFF POINTS HAVE BEEN ESTABLISHED BASED ON THE FOURTHUNIVERSAL DEFINITION OF MYOCARDIAL INFARCTION. THE UPPERREFERENCE LIMIT (URL) OF TROPONIN, DEFINED THE 99THPERCENTILE OF cTnI DISTRIBUTION IN A REFERENCE POPULATION,HAS BEEN CONFIRMED THE DECISION THRESHOLD FOR MIDIAGNOSIS.99TH PERCENTILE = 76.2 PG/MLNOTE: HIGH-SENSITIVITY TROPONIN ASSAY IS NOT INTENDED TO BEUSED IN ISOLATION BUT SHOULD BE INTERPRETED IN CONJUNCTIONWITH OTHER DIAGNOSTIC AND CLINICAL INFORMATION.Platelet mean volume Auto (Bld) [Entitic vol]on 04-06-5166Ymgctwmg mean volume (Bld) [Entitic vol] Platelet mean volume [Entitic volume] in Blood by Automated count9.5-13.5 [facility] CampusPlatelets Auto (Bld) [#/Vol]on 12-11-2024 Platelets (Bld) [#/Vol]Platelets [#/volume] in Blood by Automated hqytl682-636 [facility] CampusProthrombin time (PT)on 87-01-6326SV Coag (PPP) [Time]Prothrombin time (PT)9.0-11.6FTriHealth Bethes[facility] Butler HospitalRBC Auto (Bld) [#/Vol]on 49-10-4743VOY (Bld) [#/Vol]Erythrocytes [#/volume] in Blood by Automated countLow4.70-6.10[facility] Hospitalerum or plasma albumin/globulin mass ratioon 22-53-5305Xzcwwmh/Globulin [Mass ratio]Serum or plasma albumin/globulin mass ratioDayton Osteopathic Hospitalerum or plasma anion gap determinationon 88-37-5410Afesg gap [Moles/Vol]Serum or plasma anion gap determinationKettering Health Main CampusBasophils Auto (Bld) [#/Vol]on 61-44-9942Oxdhqljwn (Bld) [#/Vol]Automated basophil count0.0-0.1 [facility] CampusBasophils/100 WBC Auto (Bld)on 11-24-2024 Basophils/100 WBC (Bld)Automated basophil %0.2-2.0[facility] CampusEosinophils/100 WBC Auto (Bld)on 83-56-0762Crgqnwhqsyg/100 WBC (Bld) Automated eosinophil %0.9-7.0[facility] CampusErythrocyte distribution width Auto (RBC) [Ratio]on 94-23-4528Ltmlgcwpnwy distribution width (RBC) [Ratio]Erythrocyte distribution width [Ratio] by Automated count11.0-15.0 [facility] CampusEstimated glomerular filtration rate (GFR) non- Americanon 06-65-1627BTP/1.73 sq M.predicted among non-blacks MDRD (S/P/Bld) [Vol rate/Area]Estimated glomerular filtration rate (GFR) non->=60 mL/min/1.73m 2FTriHealth Bethesda Butler HospitalHematocrit Auto (Bld) [Volume fraction]on 05-94-4418Vyzbpvuxol (Bld) [Volume fraction]Hematocrit [Volume Fraction] of Blood by Automated qvmpaLco11.0-54.0[facility] CampusHemoglobin [Mass/volume] in Bloodon 23-36-9480Wpctiflbwn (Bld) [Mass/Vol]Hemoglobin [Mass/volume] in NbddiUyj78.0-18.0[facility] CampusLaboratory - Chemistry and Chemistry - challengeon 11-24-2024 Bilirubin Ql (U)NegativeNEGATIVEK[facility] Health [facility] CampusGlucose (U) [Mass/Vol]mg/dLAbnormalNEGATIVEKettering Health Main CampusKetones Ql (U) TRACE mg/dLAbnormalNEGSelect Medical Specialty Hospital - AkronpH (U)5.5 [pH] 5.0-9.0[facility] Hospitalpecific gravity (U) [Rel density] <=1.143Kwhfozop2.005-1.025[facility] CampusUrobilinogen Qn (U) 0.2 {Steve'U}/dL0.2-1.0[facility] CampusCalcium [Mass/Vol]8.9 mg/dL8.5-10.1FTriHealth Bethesda Butler HospitalChloride [Moles/Vol]99 mmol/L 98-107[facility] CampusCO2 [Moles/Vol]22.8 mmol/L21.0-32.0 [facility] CampusCreatinine [Mass/Vol]0.94 mg/dL0.70-1.30 [facility] CampusGFR/1.73 sq M.predicted MDRD (S/P/Bld) [Vol rate/Area]mL/min/{1.73_m2}>=60 mL/min/1.73m 2FTriHealth [facility] Hospital Glucose [Mass/Vol]236 mg/xCUwxf38-360XhbgstuwhKettering Health Main CampusPotassium [Moles/Vol]4.0 mmol/L3.5-5.1FMercy Health Fairfield Hospitalodium [Moles/Vol] 135 mmol/PZvg283-360SilfwuxeaKettering Health Main CampusUrea nitrogen [Mass/Vol]7.0 mg/dL7.0-18.0[facility] CampusUrea nitrogen/Creatinine [Mass ratio]7.4 mg/mgKettering Health [facility] CampusLaboratory - Hematology and Cell countson 65-03-8918Ovphkbim granulocytes/100 WBC (Bld)0.8 %High0.0-0.5FTriHealth Bethesda Butler HospitalLaboratory - Microbiology and Antimicrobial susceptibilityon 98-33-8951DJKA-CoV-2 (COVID-19) RNA SHANEKA+probe Ql (Unsp spec) NegativeNEGATIVEKettering Health Main CampusComment on above:This test has not been FDA cleared or approved, but has beenauthorized by the FDA under an Emergency Use Authorization(EUA) for use by authorized laboratories certified underIA that meet the requirements to perform moderate or highcomplexity testing. This test has been authorized only forthe detection of proteins from SARS-CoV-2, not for any otherviruses or pathogens. The emergency use of this t est isauthorized for the duration of the declaration thatcircumstances exist justifying the authorization ofemergency use of in vitro diagnostic tests for detectionand/or diagnosis of Covid-19 under section 564(b)(1) of theAct, 21 U.S.C. 360bbb-3(b)(1), unless the declaration isterminated or authorization is revoked sooner.Laboratory - Specimen informationon 09-65-6202Thnsvfnxwd (U)CLEAR CLEARKettering Health Main CampusColor (U)LT. YELLOWYELLOWKettering Health Main CampusLaboratory - Urinalysison 79-05-8228Qhakahaim esterase Test strip Ql (U)NegativeNEGATIVEKettering Health Main CampusNitrite Ql (U) NegativeNEGATIVEKettering Health [facility] CampusProtein Ql (U)NegativeNEG/TRACE [facility] CampusLeukocytes [#/volume] corrected for nucleated erythrocytes in Blood by Automated counon 49-13-9217OLF corrected for nucl RBC Auto (Bld) [#/Vol]Leukocytes [#/volume] corrected for nucleated erythrocytes in Blood by Automated coun4.0-11.0[facility] CampusLymphocytes Auto (Bld) [#/Vol]on 47-77-9353Vvqimeexvwy (Bld) [#/Vol]Lymphocytes [#/volume] in Blood by Automated countLow1.2-3.8[facility] Lymphocytes/100 WBC Auto (Bld)on 39-71-8969Bfxtacnmqnt/100 WBC (Bld) Lymphocytes/100 leukocytes in Blood by Automated jdubqZlo99.5-60.0[facility] CampusMCH Auto (RBC) [Entitic mass]on 66-58-2538ZVC (RBC) [Entitic mass]MCH [Entitic mass] by Automated count25.9-34.0[facility] CampusMCHC Auto (RBC) [Mass/Vol]on 80-10-1679GYDV (RBC) [Mass/Vol]MCHC [Mass/volume] by Automated count29.9-35.2FTriHealth Bethesda Butler HospitalMCV Auto (RBC) [Entitic vol]on 96-52-9085EAM (RBC) [Entitic vol]MCV [Entitic volume] by Automated count80.0-94.0[facility] CampusMonocytes Auto (Bld) [#/Vol]on 42-67-7893Csdsmwmzg (Bld) [#/Vol]Automated blood monocyte countHigh 0.3-0.8[facility] CampusMonocytes/100 WBC Auto (Bld)on 17-31-7303Rvvkrclba/100 WBC (Bld)Automated monocyte %High1.7-12.0[facility] CampusNeutrophils Auto (Bld) [#/Vol]on 34-54-9318Ibvvnvqkvtw (Bld) [#/Vol]Neutrophils [#/volume] in Blood by Automated count1.4-6.5FTriHealth Bethes[facility] Butler HospitalNeutrophils/100 WBC Auto (Bld)on 11-24-2024 Neutrophils/100 WBC (Bld)Automated neutrophil %43.0-75.0[facility] CampusNo Panel Informationon 93-19-7559Roqif Microscopic ReviewNO [facility] CampusUrine Occult BloodNegativeNEGATIVEKettering Health [facility] CampusEosinophils # (Auto)0.1 10 3/uL0.0-0.7FTriHealth Bethes[facility] Butler HospitalImmature Granulocyte # (Auto)0.05 10 3/uLHigh0.00-0.03[facility] CampusBedside Influenza Type A AntigenNegativeK[facility]tering Health Main CampusComment on above:Negative for Flu A protein antigen. Infection due to Flu Acannot be ruled out. Flu A antigen in thesample may bebelow the detection limit of the test.Bedside Influenza Type B AntigenNegative [facility] CampusComment on above:Negative for Flu B protein antigen. Infection due to Flu Bcannot be ruled out. Flu B antigen in thesample may bebelow the detection limit of the test.Platelet mean volume Auto (Bld) [Entitic vol]on 37-26-6762Ciapugyb mean volume (Bld) [Entitic vol]Platelet mean volume [Entitic volume] in Blood by Automated count9.5-13.5FTriHealth Bethesda Butler HospitalPlatelets Auto (Bld) [#/Vol]on 13-04-8481Toqwgifdi (Bld) [#/Vol] Platelets [#/volume] in Blood by Automated fuardVgh225-963HgpjthnwkKettering Health Main CampusRBC Auto (Bld) [#/Vol]on 19-31-6119PKD (Bld) [#/Vol]Erythrocytes [#/volume] in Blood by Automated countLow4.70-6.10[facility] Hospitalerum or plasma anion gap determinationon 78-73-5044Qhhuu gap [Moles/Vol] Serum or plasma anion gap determinationKettering Health Main Campus Cholesterol in LDL Calc [Mass/Vol]on 87-51-7591Fordysndelb in LDL [Mass/Vol] Cholesterol in LDL [Mass/volume] in Serum or Plasma by calculationKettering Health Main CampusComment on above:<100 mg/dl OYRMUUG095-207 mg/dl NEAR OR ABOVE XCMCWPL932-647 mg/dl BORDERLINE SRPF056-979 mg/dl HIGH>190 mg/dl VERY HIGH Cholesterol in VLDL Calc [Mass/Vol]on 51-75-9769Hgyrarkxmgo in VLDL [Mass/Vol] Cholesterol in VLDL [Mass/volume] in Serum or Plasma by calculationKettering Health Main CampusGlucose mean value [Mass/volume] in Blood Estimated from glycated hemoglobinon 48-68-8554Rowjaux glucose Estimated from glycated hemoglobin (Bld) [Mass/Vol]Glucose mean value [Mass/volume] in Blood Estimated from glycated hemoglobinKettering Health [facility] CampusLaboratory - Chemistry and Chemistry - challengeon 26-94-2993Sqgaoodmugn [Mass/Vol]170 mg/dL<=200 [facility] CampusCholesterol in HDL [Mass/Vol]45 mg/dL40-60 [facility] CampusComment on above:> or =60 mg/dl - LOW CARDIOVASCULAR RISK<40 mg/dl - HIGH CARDIOVASCULAR RISKTriglyceride [Mass/Vol] 188 mg/dLHigh<=150[facility] CampusLaboratory - Hematology and Cell countson 80-50-7407BfD4k (Bld) [Mass fraction]9.0 %High4.5-6.2FTriHealth Bethesda Butler HospitalComment on above:ADA RECOMMENDED LIMIT 4.0 - 6.0ADA THERAPEUTIC TARGET < 7.0ACTION SUGGESTED> 7.0No Panel Informationon 09-25-2024 Prostate Specific Antigen Screen0.33 ng/mL<=4.00[facility] Hospitalerum or plasma total cholesterol/high density lipoprotein (HDL) cholesterol mass yuniel 18-53-8937Dpluliulnry.total/Cholesterol in HDL [Mass ratio]Serum or plasma total cholesterol/high density lipoprotein (HDL) cholesterol mass ratKettering Health Main CampusComment on above:3.3 - 4.4 LOW RISK4.4 - 7.1 AVERAGE RISK7.1 - 11.0 MODERATE RISK>11.0 HIGH RISKBasophils Auto (Bld) [#/Vol]on 39-39-6513Qratrjtfj (Bld) [#/Vol]0.1 10 3/uL0.0-0.1 [facility] CampusBasophils/100 WBC Auto (Bld)on 09-02-2024 Basophils/100 WBC (Bld)1.0 %0.2-2.0[facility] CampusCholesterol in LDL Calc [Mass/Vol]on 11-50-3938Qplgjdbaczq in LDL [Mass/Vol]90.4 mg/dL [facility] CampusComment on above:<100 mg/dl FQGXXIE169-253 mg/dl NEAR OR ABOVE XYTBSNK158-145 mg/dl BORDERLINE MPJY462-461 mg/dl HIGH>190 mg/dl VERY HIGHCholesterol in VLDL Calc [Mass/Vol]on 25-82-0020Yfhxcsnzlou in VLDL [Mass/Vol]22.6 mg/dLKettering Health Main CampusEosinophils/100 WBC Auto (Bld)on 82-12-4172Sqmffbjrwvm/100 WBC (Bld)1.5 %0.9-7.0[facility] CampusErythrocyte distribution width Auto (RBC) [Ratio]on 09-02-2024 Erythrocyte distribution width (RBC) [Ratio]12.6 %11.0-15.0[facility] CampusGlobulin Calc (S) [Mass/Vol]on 96-04-0977Grzwgeop (S) [Mass/Vol] 4.0 g/dLKettering Health Main CampusHematocrit Auto (Bld) [Volume fraction] on 64-61-7386Wxqhvwnmec (Bld) [Volume fraction]45.9 %42.0-54.0[facility] CampusHemoglobin [Mass/volume] in Bloodon 02-98-2841Rpvtnamgzj (Bld) [Mass/Vol]15.7 g/dL14.0-18.0[facility] CampusLaboratory - Chemistry and Chemistry - challengeon 08-06-0534Sxqjfxj [Mass/Vol]3.8 g/dL 3.4-5.0[facility] CampusALP [Catalytic activity/Vol]65 U/L46-116 [facility] CampusALT [Catalytic activity/Vol]14 U/PCmc67-07 [facility] CampusAST [Catalytic activity/Vol]7 U/BMdw78-72 [facility] CampusBilirubin [Mass/Vol]0.5 mg/dL0.2-1.0[facility] CampusBilirubin.direct [Mass/Vol]0.1 mg/dL0.0-0.2FTriHealth [facility] Butler HospitalCholesterol [Mass/Vol]169 mg/dL<=200[facility] CampusCholesterol in HDL [Mass/Vol]56 mg/fS90-19OepvekukdKettering Health Main CampusComment on above:> or =60 mg/dl - LOW CARDIOVASCULAR RISK<40 mg/dl - HIGH CARDIOVASCULAR RISKGlucose [Mass/Vol]154 mg/lFFgyt88-854JnkprihaeK[facility] Health [facility] CampusProtein [Mass/Vol]7.8 g/dL6.4-8.2FTriHealth Bethes[facility] Butler HospitalTriglyceride [Mass/Vol]113 mg/dL<=150[facility] CampusLaboratory - Hematology and Cell countson 67-85-3122Gjuxbbiy granulocytes/100 WBC (Bld)0.7 %High0.0-0.5FT[facility] Leukocytes [#/volume] corrected for nucleated erythrocytes in Blood by Automated counon 51-79-9137TYY corrected for nucl RBC Auto (Bld) [#/Vol]5.9 10 3/uL 4.0-11.0[facility] CampusLymphocytes Auto (Bld) [#/Vol]on 41-96-7192Pyjypuhnfux (Bld) [#/Vol]2.0 10 3/uL1.2-3.8[facility] CampusLymphocytes/100 WBC Auto (Bld)on 46-79-4208Gyopxrsfjnb/100 WBC (Bld)33.4 % 20.5-60.0[facility] CampusMCH Auto (RBC) [Entitic mass]on 76-07-2474HXC (RBC) [Entitic mass]32.4 pg25.9-34.0[facility] CampusMCHC Auto (RBC) [Mass/Vol]on 35-89-7436AUMU (RBC) [Mass/Vol]34.2 g/dL 29.9-35.2FTriHealth Bethes[facility] Butler HospitalMCV Auto (RBC) [Entitic vol]on 32-86-1384COS (RBC) [Entitic vol]94.8 aZSvph37.0-94.0[facility] CampusMonocytes Auto (Bld) [#/Vol]on 93-29-4423Sxebuzxuw (Bld) [#/Vol]0.6 10 3/uL0.3-0.8[facility] CampusMonocytes/100 WBC Auto (Bld)on 69-18-1387Zvlzyyeqb/100 WBC (Bld)10.2 %1.7-12.0[facility] Neutrophils Auto (Bld) [#/Vol]on 51-23-6047Uxkwnynsked (Bld) [#/Vol]3.1 10 3/uL 1.4-6.5FTriHealth Bethes[facility] Butler HospitalNeutrophils/100 WBC Auto (Bld)on 91-93-7478Gjrxxrwmest/100 WBC (Bld)53.2 %43.0-75.0[facility] CampusNo Panel Informationon 32-73-6979Izbarmmcsdw # (Auto)0.1 10 3/uL0.0-0.7 [facility] CampusImmature Granulocyte # (Auto)0.04 10 3/uLHigh 0.00-0.03[facility] CampusValproic Acid (Depakene) Level58.6 ug/mL50.0-100.0[facility] CampusPlatelet mean volume Auto (Bld) [Entitic vol]on 66-21-7370Mvcruybh mean volume (Bld) [Entitic vol]9.6 fL9.5-13.5 [facility] CampusPlatelets Auto (Bld) [#/Vol]on 09-02-2024 Platelets (Bld) [#/Vol]214 10 3/tI504-597DwuolfkdpKettering Health Main CampusRBC Auto (Bld) [#/Vol]on 01-74-9358XBM (Bld) [#/Vol]4.84 10 6/uL4.70-6.10[facility] Hospitalerum or plasma albumin/globulin mass ratioon 09-02-2024 Albumin/Globulin [Mass ratio]0.9 {ratio}[facility] Hospitalerum or plasma total cholesterol/high density lipoprotein (HDL) cholesterol mass rat on 81-85-6174Uolmemwiisg.total/Cholesterol in HDL [Mass ratio]3.0 {ratio} [facility] CampusComment on above:3.3 - 4.4 LOW RISK4.4 - 7.1 AVERAGE RISK7.1 - 11.0 MODERATE RISK>11.0 HIGH RISKCT angio neckon 10-33-7620XB [facility]GAL[facility] [place] [address] [place] [address] CT Scan Report Signed Patient: Hari Thornton MR#: [id number] 034 : 1975 Acct:[id number] Age/Sex: 49 / M ADM Date: 07/02/24 Loc: CT Room: Type: [facility] Attending Dr: Ju BLANC Copies to: JAYASHREE Porter Ordering Provider: JAYASHREE Porter Date of Service: 07/02/24 CT/CT angio neck: I63.81 ([id number]) CT/CT angio head: I63.81 CTA Head and [...] Balta Tracy M.D.07/02/2024 2:46 PM Dictation Location: RADIO-PC-14 Transcribed By: LAURA 07/02/24 1446 Dictated By: Balta Tracy DO 07/02/24 1439 Signed By: 07/02/24 1446[facility] Physician GroupCholesterol in LDL Calc [Mass/Vol]on 02-45-7272Luydztujbst in LDL [Mass/Vol]76.6 mg/dLKettering Health Main CampusComment on above:<100 mg/dl QXOGUDE666-083 mg/dl NEAR OR ABOVE CWZPBKD341-829 mg/dl BORDERLINE SUDJ417-906 mg/dl HIGH>190 mg/dl VERY HIGH Cholesterol in VLDL Calc [Mass/Vol]on 08-31-2605Kjmtwpptfhh in VLDL [Mass/Vol] 23.4 mg/dLKettering Health Main CampusGlobulin Calc (S) [Mass/Vol]on 06-44-3015Xzbqihnm (S) [Mass/Vol]3.8 g/dLK[facility] Health [facility] Campus Glucose mean value [Mass/volume] in Blood Estimated from glycated hemoglobinon 36-36-0836Anumltx glucose Estimated from glycated hemoglobin (Bld) [Mass/Vol]192 mg/dLKettering Health Main CampusLaboratory - Chemistry and Chemistry - challengeon 18-91-6147Kfjdnss [Mass/Vol]3.8 g/dL3.4-5.0[facility] CampusALP [Catalytic activity/Vol]66 U/D47-646UclrkxhjrKettering Health Main CampusALT [Catalytic activity/Vol]19 U/F88-38BnptaydxrK[facility] Campus AST [Catalytic activity/Vol]8 U/GJfy47-36KslrrohmeKet[facility] Health [facility] Campus Bilirubin [Mass/Vol]0.4 mg/dL0.2-1.0[facility] Bilirubin.direct [Mass/Vol]0.1 mg/dL0.0-0.2FT[facility] Cholesterol [Mass/Vol]151 mg/dL<=200[facility] CampusCholesterol in HDL [Mass/Vol]51 mg/hE40-67ShcnjeeuzKettering Health Main CampusComment on above:> or =60 mg/dl - LOW CARDIOVASCULAR RISK<40 mg/dl - HIGH CARDIOVASCULAR RISKCobalamin (Vitamin B12) [Mass/Vol]723.0 pg/mL193.0-986.0[facility] CampusProtein [Mass/Vol]7.6 g/dL6.4-8.2FT[facility] Triglyceride [Mass/Vol]117 mg/dL<=150[facility] CampusTSH Qn 2.371 m[IU]/L0.358-3.740[facility] CampusLaboratory - Hematology and Cell countson 48-23-1343SiV8t (Bld) [Mass fraction]8.3 %High4.5-6.2 [facility] CampusComment on above:ADA RECOMMENDED LIMIT 4.0 - 6.0ADA THERAPEUTIC TARGET < 7.0ACTION SUGGESTED> 7.0Serum or plasma albumin/globulin mass ratioon 68-90-7285Jfbukmj/Globulin [Mass ratio]1.0 {ratio} [facility] Hospitalerum or plasma total cholesterol/high density lipoprotein (HDL) cholesterol mass yuniel 41-60-1102Rhjccvpaqcu.total/Cholesterol in HDL [Mass ratio]3.0 {ratio}[facility] CampusComment on above: 3.3 - 4.4 LOW RISK4.4 - 7.1 AVERAGE RISK7.1 - 11.0 MODERATE RISK>11.0 HIGH RISK MR head/brain wo/w conon 35-73-9840WO head/brain wo/w [facility] [place] [address] MRI Report Signed Patient: Hari Thornton MR#: [id number] 034 : 1975 Acct:[id number] Age/Sex: 49 / M ADM Date: 05/15/24 Loc: MR Room: Type: [facility] Attending Dr: Ju BLANC Copies to: [...] Mina Jeffery M.D.05/15/2024 11:00 AM Dictation Location: [place] [address] Transcribed By: [facility] 05/15/24 1100 Dictated By: Mina Jeffery II, MD 05/15/24 1052 Signed By: 05/15/24 1100[facility] Physician GroupGlucose, Whole Bloodon 17-26-8811Xghdnsj [Mass/Vol]173 mg/rKWgcl97 - 100 mg/dLBON [facility] Interpretation and review of laboratory resultsAbnormalBON [facility] BON [facility]ARK HOSPITALGlucose [Mass/Vol]173 mg/sSXkfh77-561FxdphTrinity Health Systemsi Metabolic Panelon 16-42-5310Fzopp gap [Moles/Vol]12 mmol/L9 - 17 mmol/LBON [facility]AY PARK HOSPITALCalcium [Mass/Vol]10.6 mg/dLHigh8.6 - 10.4 mg/dL [facility] SYSTEMChloride [Moles/Vol]103 mmol/L98 - 107 mmol/LBON [facility] HEALTHCO2 [Moles/Vol]24 mmol/L20 - 31 mmol/LBON [facility] Creatinine [Mass/Vol]0.7 mg/dL0.7 - 1.2 mg/dLBON PROMEDICA BAY PARK HOSPITALEst, Glom Filt Rate- PINFBON PROMEDICA BAY PARK HOSPITALComment on above: These results are not intended [...] therapy that affects renal tubular secretion. Glucose [Mass/Vol]160 mg/lWHimp62 - 99 mg/dLBON [facility] Interpretation and review of laboratory resultsAbnormalINOVA HEALTH SYSTEM Potassium [Moles/Vol]4.8 mmol/L3.7 - 5.3 mmol/LBON [facility] BAY PARK HOSPITALSodium [Moles/Vol]139 mmol/L135 - 144 mmol/LBON [facility] PARK HOSPITALUrea nitrogen [Mass/Vol]17 mg/dL6 - 20 mg/dLBON PROMEDICA BAY PARK HOSPITALUrea nitrogen/Creatinine [Mass ratio]24 mg/mgHigh9 - 20BON [facility] Basic Metabolic Profon 87-31-2222Psbla gap [Moles/Vol]12 mmol/LNormal9-17[facility]aug[facility] Medical CenterComment on above:Performed By: #### BMP, CDP #### [facility] [address] [place] [address] [place] [address] Isotope Technician: Ryan Landin MDBUN/CRE Lkeyi88Skom0-30TquliUniversity Hospitals Geauga Medical Center Comment on above:Performed By: #### BMP, CDP #### [facility] [address] [place] [address] [place] [address] Isotope Technician: POOL Gardneralcium [Mass/Vol]10.6 mg/dLHigh8.6-10.4[facility] Medical CenterComment on above:Performed By: #### BMP, CDP #### [facility] [address] [place] [address] [place] [place], [place] [id number] Isotope Technician: POOL Gardnerhloride [Moles/Vol]103 mmol/ALvsxog22-621MjbyqUniversity Hospitals Geauga Medical CenterComment on above:Performed By: #### BMP, CDP #### [address] [place], [place] [address] Isotope Technician: Ryan Landin MDCO2 [Moles/Vol]24 mmol/SHfcuxf23-49SjkexUniversity Hospitals Geauga Medical CenterComment on above:Performed By: #### BMP, CDP #### [address] [place] [address] Isotope Technician: POOL Gardnerreatinine [Mass/Vol]0.7 mg/dLNormal0.7-1.2MUniversity Hospitals Elyria Medical CenterComment on above:Performed By: #### DANYA, CDP #### [address] [place], [place] [id number] Isotope Technician: Ryan Landin MDGFR/1.73 sq M.predicted among non-blacks MDRD (S/P/Bld) [Vol rate/Area]mL/min/{1.73_m2}Normal>60[facility] Medical CenterComment on above:Result Comment: These results are not intended for [...] or following therapy that affects renal tubular secretion.Performed By: #### BMP, CDP #### [address] [place], [place] [address] Isotope Technician: Ryan Landin MDGlucose [Mass/Vol]160 mg/uMZjad09-68UlkflUniversity Hospitals Elyria Medical CenterComment on above:Performed By: #### BMP, CDP #### [address] [place] [id number] Isotope Technician: SHAKA Gardnerotassium [Moles/Vol]4.8 mmol/LNormal3.7-5.3MWilson Health HospitalComment on above:Performed By: #### BMP, CDP #### [facility] [address] [place], [place] [address] Isotope Technician: DORA Gardnerodium [Moles/Vol]139 mmol/ENoimlh976-501ApauyUniversity Hospitals Geauga Medical CenterComment on above:Performed By: #### BMP, CDP #### [facility] [address] [place], [place] [id number] Isotope Technician: Ryan Landin MDUrea nitrogen [Mass/Vol]17 mg/dLNormal6-20[facility] Medical CenterComment on above:Performed By: #### BMP, CDP #### [address] [place], [facility]83 Isotope Technician: Ryan Landin [facility] with Auto Differentialon 47-35-1601Yqrcvhodj (Bld) [#/Vol]0.07 10*3/uLBON [facility] ARIZONAOURS COMMUNITY MEMORIAL HOSPITALY [facility] HOSPITALBasophils/100 WBC (Bld)1 %0 - 2 %[facility]Y [facility] HOSPITALEosinophils (Bld) [#/Vol]0.08 10*3/uLBON [facility] HOSPITALEosinophils/100 WBC (Bld)1 %1 - 4 %[facility] HEALTH SYSTEMErythrocyte distribution width (RBC) [Ratio]13.2 %11.8 - 14.4 %[facility] Hematocrit (Bld) [Volume fraction]45.6 %40.7 - 50.3 %[facility] Hemoglobin (Bld) [Mass/Vol]15.5 g/dL13.0 - 17.0 g/dLBON [facility]SW[facility] Immature granulocytes (Bld) [#/Vol]0.07 10*3/uLBON SECOU[facility] COMMUN[facility] MEMOR[facility] HOSPITALY MID[facility]LETOWN HOSPITALImmature granulocytes/100 WBC (Bld)1 %Amky9GWK [facility] HOSPITALInterpretation and review of laboratory resultsAbnormalBON PROMEDICA BAY PARK HOSPITALLymphocytes/100 WBC (Bld)25 %24 - 43 %[facility] SYSTEMLymphocytes/100 WBC (Bld)1.70 %[facility]H (RBC) [Entitic mass]31.6 pg25.2 - 33.5 pgBON VAN WERT COUNTY HOSPITALHC (RBC) [Mass/Vol]34.0 g/dL28.4 - 34.8 g/dLBON SECAULTMAN HOSPITALV (RBC) [Entitic vol]92.9 fL82.6 - 102.9 fLINOVA [facility]ALTH SYSTEM Monocytes/100 WBC (Bld)9 %3 - 12 %[facility] SYSTEMMonocytes/100 WBC (Bld)0.60 %[facility] SYSTEMNeutrophils/100 WBC (Bld)63 %36 - 65 %[facility] SYSTEMNucleated RBC/100 WBC (Bld) [Ratio]0.0 %0.0 per 100 WBCINOVA HEALTH SYSTEMPlatelet mean volume (Bld) [Entitic vol]9.5 fL8.1 - 13.5 fL [facility] SYSTEMPlatelets (Bld) [#/Vol]255 10*3/uLINOVA HEALTH SYSTEMRBC (Bld) [#/Vol]4.91 10*6/uL4.21 - 5.77 m/[facility] Segmented neutrophils/100 WBC (Bld)4.18 %[facility] SYSTEMWBC other (Bld) [#/Vol]6.7BON [facility]ICAL CENTERCBC with Diffon [id number]. Basophil0.07 k/uLNormal0.00-0.20[facility]auga Medical CenterComment on above:Performed By: #### DANYA, CDP #### [facility] [address] [place] [address] [place] [address] Isotope Technician: Vicky Gardner.Imm.Granulocyte0.07 k/uLNormal0.00-0.30[facility]aug[facility] Medical CenterComment on above:Performed By: #### DANYA, CDP #### [address] [place], [facility]83 Isotope Technician: Vicky Gardner.Neutrophil (Seg)4.18 k/uLNormal1.50-8.10[facility] HospitalComment on above:Performed By: #### BMP, CDP #### [address] [place], [facility]83 Isotope Technician: Ryan Landin MDBasophils/100 WBC (Bld)1 %Normal0-2[facility] HospitalComment on above:Performed By: #### BMP, CDP #### [address] [place] [id number] Isotope Technician: Ryan Landin MDEosinophils (Bld) [#/Vol]0.08 10*3/uLNormal 0.00-0.44[facility] HospitalComment on above:Performed By: #### BMP, CDP #### [address] [place], [facility]83 Isotope Technician: LUISA Gardnerosinophils/100 WBC (Bld)1 %Normal1-4[facility] HospitalComment on above:Performed By: #### BMP, CDP #### [address] [place] [address]83 Isotope Technician: Ryan Landin MDErythrocyte distribution width (RBC) [Ratio]13.2 % Enacxq64.8-14.4[facility] HospitalComment on above:Performed By: #### BMP, CDP #### [address] [place] [address]83 Isotope Technician: Ryan Landin MDHematocrit (Bld) [Volume fraction]45.6 %Normal 40.7-50.3[facility] HospitalComment on above:Performed By: #### BMP, CDP #### [address] [place] [address]83 Isotope Technician: Ryan Landin MDHemoglobin (Bld) [Mass/Vol]15.5 g/dLNormal 13.0-17.0[facility] HospitalComment on above:Performed By: #### BMP, CDP #### [address] [place] [address] Isotope Technician: Alba Gardnermature granulocytes/100 WBC (Bld)1 %Crzw7RagknKettering [facility] HospitalComment on above:Performed By: #### BMP, CDP #### [address] [place], [place] 4[address]283 Isotope Technician: Ryan Landin MDLymphocytes (Bld) [#/Vol]1.70 10*3/uLNormal 1.10-3.70[facility] HospitalComment on above:Performed By: #### BMP, CDP #### [address] [place], [place] [address] Isotope Technician: Gissel Gardnermphocytes/100 WBC (Bld)25 %Pjpbqk62-85Tpdhu Tiffin HospitalComment on above:Performed By: #### BMP, CDP #### [address] [place], [place] [address]83 Isotope Technician: ERIC GardnerCH (RBC) [Entitic mass]31.6 ozEkgxgd68.2-33.5 [facility] HospitalComment on above:Performed By: #### BMP, CDP #### [address] [place], [place] 4703383 Isotope Technician: QUE GardnerC (RBC) [Mass/Vol]34.0 g/cBMjbdjc27.4-34.8[facility] HospitalComment on above:Performed By: #### BMP, CDP #### [address] [place] [address] Isotope Technician: ERIC GardnerCV (RBC) [Entitic vol]92.9 iXGvmrie09.6-102.9 [facility] CenterComment on above:Performed By: #### BMP, CDP #### [address] [place] [address] Isotope Technician: ERIC Gardneronocytes (Bld) [#/Vol]0.60 10*3/uLNormal0.10-1.20 [facility] CenterComstraith hospital for special surgery on above:Performed By: #### BMP, CDP #### [address] [place] [address] Isotope Technician: ERIC Gardneronocytes/100 WBC (Bld)9 %Normal3-12[facility] CenterComment on above:Performed By: #### BMP, CDP #### [address] [place] [address] Isotope Technician: Ryan Landin MDNeutrophil (Seg)63 %Tejylm80-22JnwesUniversity Hospitals Geauga Medical CenterComstraith hospital for special surgery on above:Performed By: #### BMP, CDP #### [address] [place] [address] Isotope Technician: Ryan Landin MDNRBC Automated0.0 per 100 WBCNormal0.0[facility] Medical CenterComstraith hospital for special surgery on above:Performed By: #### BMP, CDP #### [address] [place] [address] Isotope Technician: SHAKA Gardnerlatelet mean volume (Bld) [Entitic vol]9.5 fL Normal8.1-13.5[facility] CenterComstraith hospital for special surgery on above:Performed By: #### BMP, CDP #### [address] [place], [place] 3[address]883 Isotope Technician: SHAKA Gardnerlatelets (Bld) [#/Vol]255 10*3/sMGwronw499-087 [facility] HospitalComment on above:Performed By: #### BMP, CDP #### [address] [place] [address] Isotope Technician: DIMA Gardner ([facility]) [#/Vol]4.91 10*6/uLNormal4.21-5.77[facility] HospitalComment on above:Performed By: #### BMP, CDP #### [facility] [address] [place] [address] [place] [address] Isotope Technician: JULITO Gardner ([facility]) [#/Vol]6.7 10*3/uLNormal3.5-11.3MWilson Health HospitalComment on above:Performed By: #### BMP, CDP #### [address] [place], [place] 3153583 Isotope Technician: STANISLAV Gardner 12 LeadOrdered By: Coco Anderson on [id number] Emlo10ZMBPQO [employer] Work Phone: P [id number] [employer] Work Phone: P-R [id number] msBON SEC2 Minutes Work Phone: Q-T Cvmiflvs967 msBON SECTypesafe HEALTH Work Phone: QRS Mfnumodf36 msBON SECRealtimeBoard [facility]ITY [facility]ITALStrawberry [facility] Work Phone: QTc Calculation (Sona)435 msBON SECTypesafe HEALTH Work Phone: R [id number] SECRealtimeBoard [facility]PITALStrawberry energy HE[facility] Work Phone: T [id number] SECRealtimeBoard [facility]OSPITALStrawberry energy HE[facility] Work Phone: Ventricular Btzl15DEGSYL SEC2 Minutes Work Phone: BON SEC2 Minutes Work Phone: EKG 12 Leadon [id number] sinus rhythm with sinus arrhythmia Normal ECG When compared with ECG of 16-MAY-2022 17:35, No significant change was found Confirmed by COCO ANDERSON ([id number]) on 05/01/2024 12:05:02 [facility] Coco Anderson MD - 05/01/2024 Normal sinus rhythm with sinus arrhythmia Normal ECG When compared with ECG of 16-MAY-2022 17:35, No significant change was found Confirmed by COCO ANDERSON ([id number]) on 05/01/2024 12:05:[address] KIDNEYS BLADDERon [id number] KIDNEYS BLADDER EXAMINATION: US KIDNEYS BLADDER HISTORY: [...] Electronically authenticated by: ERIKA HUMPHREY Date: 2023-03-14 10:06[facility] KIDNEYS [facility] HALGI Other us SINGLE QUAD RT UPPERon [id number] SINGLE QUAD RT UPPEREXAMINATION: US SINGLE QUAD RT UPPER HISTORY: Abdominal [...] Electronically authenticated by: ERIKA HUMPHREY Date: 2023-03-14 10:[address] with Estimated Average Gluon [id number] with Estimated Average [facility] logolineup Other BILIRUBIN CONJUGATED (DIRECT)on [id number], CONJUGATED0.1 mg/dLNormal0.0-0.2[facility] HospitalComment on above:Performed By: #### PHOS, MG, DBIL, LIPID, VALP, CMP #### [facility] [address] [place] [address] Dr. Pam Casper AUTO DIFFon [id number] #0.0 103/ulNormal0.0-0.1[facility] HospitalComment on above:Performed By: #### CBC #### [facility] [address] [place] [address] Dr. Pam Fierrosophils/100 WBC (Bld)0.9 %Normal0.2-2.0[facility] Comment on above:Performed By: #### CBC #### [facility] [address] [place] [address] Dr. Pam Maharaj #0.1 103/ulNormal0.0-0.7The [facility] SouthComment on above: Performed By: #### CBC #### [facility] [address] [place] [address] Dr. Pam Darnellosinophils/100 WBC (Bld)2.1 %Normal0.9-7.0[facility] Comment on above:Performed By: #### CBC #### [facility] [address] [place], [place] [address] Dr. Pam Darnellrythrocyte distribution width (RBC) [Ratio]13.5 %Dqjgwj18.0-15.0 The Veterans Health Administrationment on above:Performed By: #### CBC #### [facility] [address] [place] [address] Dr. Pam GrangerHematocrit (Bld) [Volume fraction]43.8 %Qbhdki88.0-54.0The [facility] SouthComment on above:Performed By: #### CBC #### [facility] [address] [place] [address] Dr. Pam GrangerHemoglobin (Bld) [Mass/Vol]15.0 g/zMYyzpyy32.0-18.0The [facility] Health Administrationment on above:Performed By: #### CBC #### [facility] [address] [place] [address] Dr. Pam Blackman #0.04 10e3/ulCritically high0.00-0.03The [facility] Comment on above:Performed By: #### CBC #### [facility] [address] [place] [address] Dr. Pam Blackman %0.9 %Critically high0.0-0.5The [facility] on above:Performed By: #### CBC #### [facility] [address] [place] [address] Dr. Pam AndradeH #1.5 103/ulNormal1.2-3.8The [facility] Health Administrationment on above:Performed By: #### CBC #### [facility] [address] [place] [address] Dr. Pam Kramermphocytes/100 WBC (Bld)34.9 %Awocme05.5-60.0The [facility] Administrationment on above:Performed By: #### CBC #### [facility] [address] [place] [address] Dr. Pam LouisUAL DIFF REQNONormalThe [facility] SouthComment on above: Performed By: #### CBC #### [facility] [address] [address] [address] Pam Kim (RBC) [Entitic mass]31.2 yxBuiuyj42.9-34.0The [facility] SouthComment on above:Performed By: #### CBC #### [facility] [address] [place] [address] Dr. Pam Kim (RBC) [Mass/Vol]34.2 g/bSZgubil13.9-35.2The [facility] SouthComment on above:Performed By: #### CBC #### [facility] [address] [place] [address] Dr. Pam KimV (RBC) [Entitic vol]91.1 nQIskimk67.0-94.0The [facility] SouthComment on above:Performed By: #### CBC #### [facility] [address] [place] [address] Dr. Pam Ruvalcaba #0.6 103/ulNormal0.3-0.8The [facility] SouthComment on above:Performed By: #### CBC #### [facility] [address] [place] [address] Dr. Pam Rezaocytes/100 WBC (Bld)12.6 %Critically high1.7-12.0The [facility] SouthComment on above:Performed By: #### CBC #### [facility] [address] [place] [address] Dr. Pam Choudhary #2.1 103/ulNormal1.4-6.5The [facility] SouthComment on above:Performed By: #### CBC #### [facility] [address] [place] [address] Dr. Pam Floydutrophils/100 WBC (Bld)48.6 %Qcfimw36.0-75.0The [facility] SouthComment on above:Performed By: #### CBC #### [facility] [address] [place] [address] Dr. Pam Solerlet mean volume (Bld) [Entitic vol]9.0 fLCritically low 9.5-13.5The [facility] on above:Performed By: #### CBC #### [facility] [address] [address] [address] Pam GrangerPLT238 103/owFquxel479-351Bzy [facility] on above: Performed By: #### CBC #### [facility] [address] [address] [address] Pam GrangerRBC4.81 106/ulNormal4.70-6.10The [facility] on above:Performed By: #### CBC #### [facility] [address] [address] [address] Pam GrangerWBC4.4 103/ulNormal4.0-11.0The [facility] on above: Performed By: #### CBC #### [facility] [address] [place] [address] Dr. Pam FelicianoKENMontrell/ VALPROIC ACIDon 40-96-4661PLZUQKEW54.5 ug/mlNormal 50.0-100.0The [facility] on above:Performed By: #### A1C #### [facility] [address] [place] [address] Dr. Pam GrangerGLYCOHEMOGLOBIN A1Con 87-01-5524KAD RECOMMENDATIONSEE BELOWNormal [facility] on above:Result Comment: ADA RECOMMENDED LIMIT 4.0 - 6.0 ADA THERAPEUTIC TARGET < 7.0 ACTION SUGGESTED > 7.0Performed By: #### A1C #### [facility] [address] [address] [address] Pam GrangerGlucose [Mass/Vol]174 mg/dLNormalThSelect Medical Specialty [facility] on above:Performed By: #### A1C #### [facility] [address] [place] [address] Dr. Pam GrangerHbA1c (Bld) [Mass fraction]7.7 %Critically high4.5-6.2The [facility] on above:Performed By: #### A1C #### [facility] [address] [place] [address] Dr. Pam WardID PROFILEon 74-19-9744IHUF-HDL RATIO NORMSEE [facility] CenterComment on above:Result Comment: 3.3 - 4.4 LOW RISK 4.4 - 7.1 AVERAGE RISK 7.1 - 11.0 MODERATE RISK >11.0 HIGH RISKPerformed By: #### PHOS, MG, DBIL, LIPID, VALP, CMP #### [facility] [address] [place] [address] Dr. Pam GrangerCholesterol [Mass/Vol]163 mg/dLNormal<=200[facility] Comment on above:Performed By: #### PHOS, MG, DBIL, LIPID, VALP, CMP #### [facility] [address] [place] [address] Dr. Pam De Lunaesterol in HDL [Mass/Vol]50 mg/hQAbcqiz24-51CncLutheran HospitalComment on above:Performed By: #### PHOS, MG, DBIL, LIPID, VALP, CMP #### [facility] [address] [place] [address] Dr. Pam GrangerCholesterol in LDL [Mass/Vol]83.6 mg/dLNoAultman Orrville HospitalComstraith hospital for special surgery on above:Performed By: #### PHOS, MG, DBIL, LIPID, VALP, CMP #### [facility] [address] [place] [address] Dr. Pam De Lunaesterday.total/Cholesterol in HDL [Mass ratio]3.3 {ratio} NormalOhioHealth Grant Medical Center on above:Performed By: #### PHOS, MG, DBIL, LIPID, VALP, CMP #### [facility] [address] [place] [address] Dr. Pam Mckinnon NORMAL> or = 60 mg/dl - LOW CARDIOVASCULAR RISK <40 mg/dl - HIGH CARDIOVASCULAR RISKMetroHealth Parma Medical CenterComment on above:Performed By: #### PHOS, MG, DBIL, LIPID, VALP, CMP #### [facility] [address] [place] [address] Dr. Pam GrangerLDL CALC NORMALSEE BELOWMetroHealth Parma Medical CenterComment on above:Result Comment: <100 mg/dl OPTIMAL 100 - 129 mg/dl NEAR OR ABOVE OPTIMAL 130 - 159 mg/dl BORDERLINE HIGH 160 - 189 mg/dl HIGH >190 mg/dl VERY HIGH Performed By: #### PHOS, MG, DBIL, LIPID, VALP, CMP #### [facility] [address] [place] [address] Dr. Pam GrangerTriglyceride [Mass/Vol]147 mg/dLNormal<=150The [facility] Comment on above:Performed By: #### PHOS, MG, DBIL, LIPID, VALP, CMP #### [facility] [address] [place] [address] Dr. Pam GrangerVLDL CALC29.4 mg/dLNoAultman Orrville HospitalComment on above: Performed By: #### PHOS, MG, DBIL, LIPID, VALP, CMP #### [facility] [address] [place] [address] Dr. Pam GrangerMAGNESIUMon 45-37-2035Tmbbkrkzm [Mass/Vol]2.0 mg/dLNormal1.8-2.4 The [facility] SouthComment on above:Performed By: #### A1C #### [facility] [address] [place] [address] Dr. Pam GrangerPHOSPHORUSon 72-99-0955Qdtwrgnuk [Mass/Vol]3.4 mg/dLNormal2.6-4.7 The [facility] SouthComment on above:Performed By: #### PHOS, MG, DBIL, LIPID, VALP, CMP #### [facility] [address] [place] [address] Dr. Pam GrangerPROF 14(COMP METB)on 67-46-3576Offmmjg [Mass/Vol]4.0 g/dLNormal 3.4-5.0The [facility] SouthComment on above:Performed By: #### A1C #### [facility] [address] [place] [address] Dr. Pam GrangerAlbumin/Globulin [Mass ratio]1.2 {ratio}NormalLutheran HospitalComment on above:Performed By: #### A1C #### [facility] [address] [address] [address] Pam Glover [Catalytic activity/Vol]69 U/QScuiwg04-879Zih [facility] SouthComment on above:Performed By: #### A1C #### [facility] [address] [address] [address] Pam Strickland [Catalytic activity/Vol]17 U/CLjwuup59-68Ifs [facility] SouthComment on above:Performed By: #### A1C #### [facility] [address] [address] [address] Pam Govea gap [Moles/Vol]19.7 mmol/LNormalThe [facility] Comment on above:Performed By: #### A1C #### [facility] [address] [address] [address] Pam GrangerAST [Catalytic activity/Vol]11 U/LCritically fqp59-65Aak [facility] SouthComment on above:Performed By: #### A1C #### [facility] [address] [address] [address] Pam GrangerBilirubin [Mass/Vol]0.3 mg/dLNormal0.2-1.0The [facility] Comment on above:Performed By: #### A1C #### [facility] [address] [address] [address] Pam GrangerCalcium [Mass/Vol]9.8 mg/dLNormal8.5-10.1The [facility] Comment on above:Performed By: #### A1C #### [facility] [address] [address] [address] Pam GrangerChloride [Moles/Vol]106 mmol/YFypyvw08-255Ozc [facility] Comment on above:Performed By: #### A1C #### [facility] [address] [address] [address] Pam GrangerCO2 [Moles/Vol]24.4 mmol/YLnzdft19.0-32.0The [facility] Comment on above:Performed By: #### A1C #### [facility] [address] [address] [address] Pam GrangerCreatinine [Mass/Vol]0.78 mg/dLNormal0.70-1.30The [facility] SouthComment on above:Performed By: #### A1C #### [facility] [address] [address] [address] Orozco ChangEGFR-AF BELARUSIAN>60Normal>=60The [facility] SouthComment on above:Performed By: #### A1C #### [facility] [address] [address] [address] Pam DarnellGFR-NON AF BELARUSIAN>60Normal>=60The [facility] SouthComment on above:Performed By: #### A1C #### [facility] [address] [address] [address] Pam GrangerGlobulin (S) [Mass/Vol]3.4 g/dLNormalThe [facility] SouthComment on above:Performed By: #### A1C #### [facility] [address] [address] [address] Pam GrangerGlucose [Mass/Vol]162 mg/dLCritically bzkd42-421Jpa [facility] SouthComment on above:Performed By: #### A1C #### [facility] [address] [address] [address] Pam GrangerPotassium [Moles/Vol]4.1 mmol/LNormal3.5-5.1The [facility] Comment on above:Performed By: #### A1C #### [facility] [address] [address] [address] Pam GrangerProtein [Mass/Vol]7.4 g/dLNormal6.4-8.2The [facility] Comment on above:Performed By: #### A1C #### [facility] [address] [address] [address] Pam GrangerSodium [Moles/Vol]146 mmol/LCritically qxsi943-918Csh [facility] SouthComment on above:Performed By: #### A1C #### [facility] [address] [address] [address] Pam GrangerUrea nitrogen [Mass/Vol]9.0 mg/dLNormal7.0-18.0The [facility] SouthComment on above:Performed By: #### A1C #### [facility] [address] [address] [address] Pam GrangerUrea nitrogen/Creatinine [Mass ratio]11.5 mg/mgNormLancaster Municipal HospitalComment on above:Performed By: #### A1C #### [facility] [address] [address] [address] Pam GrangerTSHon 42-49-9085FTB1.967 uIU/mLCritically high0.358-3.740 uIU/mL [facility] logolineup Other tsHswg noteNortAllegheny General Hospital logolineup Other TSH3.967 uIU/mLCritically high0.358-3.740The [facility] SouthComment on above:Performed By: #### A1C #### [facility] [address] [place] [address] Dr. Pam GrangerXR CHEST 2 Von [id number] CHEST 2 VEXAM: XR CHEST 2 V HISTORY: Dyspnea COMPARISON: None. TECHNIQUE: PA and lateral views of the chest. FINDINGS: The cardiomediastinal silhouette is normal. No focal consolidation is identified. There is no pneumothorax. No pleural effusion is noted. The osseous structures are intact. IMPRESSION: No acute cardiopulmonary process. Electronically authenticated by: MINA PALACIOS Date: 2023-02-08 09:39NormUniversity Hospitals Parma Medical Center HospitalCULTURE URINEon 25-59-5996GPEHXKK URINECulture Observations: NO GROWTH.NormalThe [facility] SouthComment on above:Performed By: #### URCX #### [facility] [address] [place] [address] Dr. Pam GrangerGLYCOHEMOGLOBIN A1Con 62-88-7944UZO RECOMMENDATIONSEE BELOWNormal The [facility] SouthComstraith hospital for special surgery on above:Result Comment: ADA RECOMMENDED LIMIT 4.0 - 6.0 ADA THERAPEUTIC TARGET < 7.0 ACTION SUGGESTED > 7.0Performed By: #### A1C #### [facility] [address] [address] [address] Pam GrangerGlucose [Mass/Vol]189 mg/dLNoAultman Orrville HospitalComment on above:Performed By: #### A1C #### [facility] [address] [address] [address] Pam GrangerHbA1c (Bld) [Mass fraction]8.2 %Critically high4.5-6.2The [facility] SouthComment on above:Performed By: #### A1C #### [facility] [address] [address] [address] Pam Holguin RANDOM W/MICROSCOPICon 31-71-5372FVXUDOMVYQEI SEENNormalNONE SEENLutheran HospitalComment on above:Performed By: #### A1C #### [facility] [address] [address] [address] Pam Isidro Ql (U)NegativeNormalNEGATIVELutheran Hospital Comment on above:Performed By: #### A1C #### [facility] [address] [address] [address] Pam Wheatley SEENNormalNONE SEENLutheran HospitalComment on above:Performed By: #### A1C #### [facility] [address] [address] [address] Pam Trotter (U)CLEARNormalCLEARLutheran HospitalComment on above: Performed By: #### A1C #### [facility] [address] [address] [address] Pam Peterson (U)LT. YELLOWNormalYELLOWLutheran HospitalComment on above:Performed By: #### A1C #### [facility] [address] [address] [address] Pam Obrien LM Nom (Urine sed)NONE SEENNormalNONE SEENLutheran HospitalComment on above:Performed By: #### A1C #### [facility] [address] [address] [address] Pam Carreonthelial cells LM Ql (Urine sed)FEWAbnormalNONE SEEN /RAREThe [facility] SouthComment on above:Performed By: #### A1C #### [facility] [address] [address] [address] Pam GrangerGlucose Ql (U)>1000AbnormalNEGATIVELutheran HospitalComment on above:Performed By: #### A1C #### [facility] [address] [address] [address] Pam GrangerHemoglobin Ql (U)NegativeNormalNEGATIVECincinnati Shriners Hospital on above:Performed By: #### A1C #### [facility] [address] [address] [address] Pam GrangerKetones Ql (U)TRACEAbnormalNEGATIVELutheran HospitalComment on above:Performed By: #### A1C #### [facility] [address] [address] [address] Pam GrangerLEUKOCYTESNegativeNormalNEGATIVELutheran HospitalComment on above:Performed By: #### A1C #### [facility] [address] [address] [address] Pam GrangerMUCOUSNONE SEENNormalNONE SEENLutheran HospitalComment on above:Performed By: #### A1C #### [facility] [address] [address] [address] Pam GrangerNitrite Ql (U)NegativeNormalNEGATIVELutheran HospitalComment on above:Performed By: #### A1C #### [facility] [address] [address] [address] Pam GrangerpH (U)6.0 [pH]Normal5-9Lutheran HospitalComment on above: Performed By: #### A1C #### [facility] [address] [address] [address] Pam GrangerLhmpvCTZ8-8Wuygbx5-5Rkn [facility] SouthComment on above:Performed By: #### A1C #### [facility] [address] [place] [address] Dr. Pam GrangerSPEC GRAVITY1.046Ighkmx2.005-<=1.025The [facility] SouthComment on above:Performed By: #### A1C #### [facility] [address] [place] [address] Dr. Pam GrangerUA PROTEINNegativeNormalNEGATIVE/ TRACEThe [facility] Comment on above:Performed By: #### A1C #### [facility] [address] [place] [address] Dr. Pam GrangerUrobilinogen Qn (U)0.2 {Steve'U}/dLNormal0.2 - 1.0The [facility] SouthComment on above:Performed By: #### A1C #### [facility] [address] [place] [address] Dr. Pam GrangerWBCNONE SEENNormalNONE SEENThe [facility] SouthComment on above: Performed By: #### A1C #### [facility] [address] [place] [address] Dr. Pam StoneVID-19, Rapidon [id number]-CoV-2 (COVID-19) RNA SHANEKA+probe Ql (Unsp spec)Not detectedNot DetectedBON [facility] on above: Rapid NAAT: The specimen is [...] management decisions. Fact sheet for Healthcare Providers: https://www.fda.gov/media/173468/download Fact sheet for Patients: https://www.fda.gov/media/546965/download Methodology: Isothermal Nucleic Acid Amplification Specimen Description.NASOPHARYNGEAL SWABBON CinemaNow [facility]OSPITALBON [facility]THERN ARIZONATypesafe [facility] HOSPITALXR CHEST PORTABLEon [id number] acute abnormality. [facility] RIS CONSOLIDATEDEXAMINATION: ONE XRAY VIEW OF THE CHEST 06/25/2022 9:24 am COMPARISON: 05/16/2022 HISTORY: ORDERING SYSTEM PROVIDED HISTORY: cough TECHNOLOGIST PROVIDED HISTORY: cough FINDINGS: Lungs are grossly clear with some similar mild linear scarring in the periphery of the left mid lung. No pneumothorax or pleural effusion. Mild eventration of the right hemidiaphragm. Cardiomediastinal contours are within normal limits. No acute bony findings. [facility] Albamaria guadalupeeliudFelecia spence Deisi, DO - 06/25/2022 EXAMINATION: ONE XRAY VIEW [...] acute bony findings. IMPRESSION: No acute abnormality. [employer] Phone: radiology Study observation (narrative)[employer] Phone: XR CHEST PORTABLEOrdered By: Felecia Pelletier on [id number] Jini Phone: GLYCOHEMOGLOBIN A1Con [id number] RECOMMENDATIONSEE BELOWMetroHealth Parma Medical CenterComment on above:Result Comment: ADA RECOMMENDED LIMIT 4.0 - 6.0 ADA THERAPEUTIC TARGET < 7.0 ACTION SUGGESTED > 7.0Performed By: #### A1C #### [facility] [address] [place] [address] Dr. Pam GrangerGlucose [Mass/Vol]192 mg/dLMetroHealth Parma Medical CenterComment on above:Performed By: #### A1C #### [facility] [address] [place] [address] Dr. Pam GrangerHbA1c (Bld) [Mass fraction]8.3 %Critically high4.5-6.2The [facility] SouthComment on above:Performed By: #### A1C #### [facility] [address] [address] [address] Pam GrangerAcetaminophen Levelon [id number] Level<5Low10 - 30 ug/mLINOVA HEALTH SYSTEMInterpretation and review of laboratory results AbnormalBON PROMEDICA BAY PARK HOSPITALBON PROMEDICA BAY PARK HOSPITALCBC with Auto Differentialon [id number] Eos #0.09BON [facility] PARK HOSPITALAbsolute Immature Granulocyte0.03BON [facility]ARK HOSPITALAbsolute Lymph #2.11BON SECCLEVELAND CLINIC AVON HOSPITALAbsolute Grady #0.79BON [facility] PARK HOSPITALBasophils (Bld) [#/Vol] 0.06 10*3/uLBON [facility]OMED[facility] B[facility] PARK HOSPITALBasophils/100 WBC (Bld)1 %0 - 2 %INOVA HEALTH SYSTEMEosinophils/100 WBC (Bld)1 %1 - 4 %[facility] Hematocrit (Bld) [Volume fraction]40.9 %40.7 - 50.3 %[facility] Hemoglobin (Bld) [Mass/Vol]14.2 g/dL13.0 - 17.0 g/dLBON [facility] Immature granulocytes/100 WBC (Bld)1 %Bmel1CYY [facility] Interpretation and review of laboratory resultsAbnormalBON [facility] Lymphocytes/100 WBC (Bld)33 %24 - 43 %[facility]ALTHH (RBC) [Entitic mass]31.6 pg25.2 - 33.5 pgVALLEY HEALTHHC (RBC) [Mass/Vol]34.7 g/dL28.4 - 34.8 g/dLBON VAN WERT COUNTY HOSPITALV (RBC) [Entitic vol]91.1 fL82.6 - 102.9 fLINOVA HEALTH SYSTEMMonocytes/100 WBC (Bld)12 %3 - 12 %[facility] HEALTH SYSTEMNRBC Automated0.00.0 per 100 WBCINOVA HEALTH SYSTEMPlatelet distribution width (Bld) [Ratio]12.2 %11.8 - 14.4 %[facility] Platelet mean volume (Bld) [Entitic vol]9.7 fL8.1 - 13.5 fLINOVA HEALTH SYSTEMPlatelets (Bld) [#/Vol]234 10*3/uLBON PROMEDICA BAY PARK HOSPITALRBC (Bld) [#/Vol]4.49 10*6/uL4.21 - 5.77 m/uLINOVA HEALTH SYSTEMSegmented neutrophils/100 WBC (Bld)52 %36 - 65 %INOVA HEALTH SYSTEMSegs Absolute3.35 [facility] HEALTH SYSTEMWBC (Bld) [#/Vol]6.4 10*3/uLBON [facility] ABERDEEN MEDICAL CENTERCOVID-19, Rapidon [id number] and review of laboratory resultsAbnormSentara Williamsburg Regional Medical CenterSARS-CoV-2 (COVID-19) RNA SHANEKA+probe Ql (Unsp spec)DetectedAbnormalNot [facility] Comment on above: Rapid NAAT: The specimen [...] this assay. Fact sheet for Healthcare Providers: https://www.fda.gov/media/172450/download Fact sheet for Patients: https://www.fda.gov/media/859566/download Methodology: Isothermal Nucleic Acid Amplification Results reported to the appropriate Health Department Specimen Description.NASOPHARYNGEAL SWABBON [facility]ERDEEN MEDICAL CENTERComprehensive Metabolic Panelon [id number] [Mass/Vol]4.7 g/dL 3.5 - 5.2 g/dLBON PROMED[facility] PARK HOSPITALAlbumin/Globulin [Mass ratio]2.0 {ratio} [facility] HOSPITALY HEALTHALP (Bld) [Catalytic activity/Vol]65 U/L40 - 129 U/LBON [facility] MERCY HEALTHALT [Catalytic activity/Vol]12 U/L5 - 41 U/LBON [facility] MERCY HEALTHAnion gap [Moles/Vol]14 mmol/L9 - 17 mmol/LBON [facility] MEM[facility]OS[facility]ITALY HEALTH AST [Catalytic activity/Vol]11 U/L<40B[facility] HEALTHBilirubin [Mass/Vol]0.22 mg/dLLow0.3 - 1.2 mg/dLBON [facility] MERCY HEALTHCalcium [Mass/Vol] 10.1 mg/dL8.6 - 10.4 mg/dLBON [facility] MERCY HEALTHChloride [Moles/Vol]101 mmol/L 98 - 107 mmol/LBON [facility]OR[facility] HOSPITALY HEALTHCO2 [Moles/Vol]23 mmol/L20 - 31 mmol/LBON [facility] MERCY HEALTHCreatinine [Mass/Vol]0.57 mg/dLLow0.70 - 1.20 mg/dLBON [facility] HEALTHFree PSA/Total PSA [Mass fraction]7.0 g/dL6.4 - 8.3 g/dLBON [facility]OU[facility] COMM[facility]ITY [facility] HOSPITALY HEALTHGFR >60>60 mL/minBON SECOU[facility] COMM[facility]ITY [facility] HOSPITALY HEALTHGFR Non->60>60 mL/minBON [facility] HEALTHGlucose [Mass/Vol]203 mg/jXTilj82 - 99 mg/dLBON [facility] MERCY HEALTHPotassium [Moles/Vol]4.4 mmol/L3.7 - 5.3 mmol/LBON [facility] MEMORIAL HOSPITALY HEALTHSodium [Moles/Vol]138 mmol/L135 - 144 mmol/LBON SECOURS COMMUNITY MEMORIAL HOSPITALY HEALTHUrea nitrogen (BldV) [Mass/Vol]12 mg/dL6 - 20 mg/dLBON [facility]OURS MERCY HEALTHUrea nitrogen/Creatinine (Bld) [Mass ratio]21High [facility] HOSPITALY HEALTHEKG 12 LeadOrdered By: Coco Anderson on 05-16-2022 Atrial [id number] SECBEAUREGARD [facility]IAL [facility] HEALTH Work Phone: p [id number] [facility] HEALTH Work Phone: P-R Bcbyzfjy851 msJirafe Work Phone: Q-T Qhxzjixr451 [employer] Work Phone: QRS Okpnxtsd70 msJirafe Work Phone: QTc Calculation (Bazett)437 msJirafe Work Phone: R Jliy95jlzsqtkBLQ [employer] Work Phone: T Tfeu40mnqyjqmCCCJirafe Work Phone: Ventricular Ygbc89IGLONL [employer] Work Phone: bON [employer] Work Phone: EKG 12 Leadon 08-47-1881Nqidrs sinus rhythm Possible Left atrial enlargement Borderline ECG When compared with ECG of 23-NOV-2021 09:40, Nonspecific T wave abnormality no longer evident in Inferior leads Confirmed by COCO ANDERSON ([id number]) on 05/16/2022 7:06:44 [facility]HE[facility] Coco Anderson MD - 05/16/2022 Normal sinus rhythm Possible Left atrial enlargement Borderline ECG When compared with ECG of 23-NOV-2021 09:40, Nonspecific T wave abnormality no longer evident in Inferior leads Confirmed by COCO ANDERSON ([id number]) on 05/16/2022 7:06:44 PMBON [employer] Work Phone: ethanolon 05-93-8811Llxvmvd [Mass/Vol]mg/dL<10 mg/dL JirafeEthanol percent<0.010<0.010 %citizenmadeLaboratory - Chemistry and Chemistry - challengeon 15-13-4960SUP/1.73 sq M.predicted MDRD (S/P/Bld) [Vol rate/Area]JirafeComment on above:Average GFR for 40-49 years old: 99 mL/min/1.73sq m Chronic Kidney Disease: <60 mL/min/1.73sq m Kidney failure: <15 mL/min/1.73sq m eGFR calculated using average adult body mass. Additional eGFR calculator available at: http://www.Firefly Mobile/multiple_crcl_2012.htm Stage 1: Some kidney damage normal GFR Stage 2: Mild kidney damage GFR 60-89 Stage 3: Moderate kidney damage GFR 30-59 Stage 4: Severe kidney damage GFR 15-29 Stage 5: Severe kidney damage GFR <15 ESRD - chronic treatment by dialysis or transplant No Panel Informationon [id number] and review of laboratory results AbnormalBON SECOURS MERCY HEALTHBON [facility] MERCY HEALTHSalicylateon 05-16-2022 Salicylate Lvl<1Low3 - 10 mg/dLBON [facility]OURS MERCY HEALTHUrine Drug Screenon [id number] Screen, UrNegativeNEGATIVEBON [facility]ALTH Barbiturate Screen, UrNegativeNEGATIVEBON [facility]CY HEALTHBenzodiazepine Screen, UrineNegativeNEGATIVEBON [facility]CY HEALTHBuprenorphine UrineNegative NEGATIVEBON [facility]OURS MERCY HEALTHCannabinoid Scrn, UrNegativeNEGATIVEBON [facility]OU[facility] MERCY HEALTHCocaine Metabolite, UrineNegativeNEGATIVEB[facility] Methadone Screen, UrineNegativeNEGATIVEB[facility] MERCY HEALTHMethamphetamine, UrineNegativeNEGATIVEB[facility] MERCY HEALTHOpiates, UrineNegativeNEGATIVEBON [facility] MERCY HEALTHOxycodone Screen, UrNegativeNEGATIVEB[facility] Phencyclidine, UrineNegativeNEGATIVEBON [facility] MERCY HEALTHPropoxyphene, Urine NegativeNEGATIVEBON [facility]OURS MERCY HEALTHTricyclic Antidepressants, UrineNegative NEGATIVEBON SECOURS MERCY HEALTHComment on above:Drug screen results are to be used for medical purposes only. All positive results are unconfirmed. Testing for employment or legal uses should be sent to a reference laboratory for confirmation. [facility] HEALTHXR CHEST 1 VIEWon [id number] acute airspace disease identified. MHPN RIS CONSOLIDATEDEXAMINATION: ONE XRAY VIEW OF THE CHEST 05/16/2022 6:40 pm COMPARISON: None. HISTORY: ORDERING SYSTEM PROVIDED HISTORY: covid TECHNOLOGIST PROVIDED HISTORY: covid FINDINGS: Shallow inflation. The cardiomediastinal silhouette is within normal limits. There is no consolidation, pneumothorax or evidence for edema. No evidence for effusion. No acute osseous abnormality is identified. Ziyad Shoemaker MD - 05/16/2022 EXAMINATION: ONE XRAY VIEW OF THE CHEST 05/16/2022 6:40 pm COMPARISON: None. HISTORY: ORDERING SYSTEM PROVIDED HISTORY: covid TECHNOLOGIST PROVIDED HISTORY: covid FINDINGS: Shallow inflation. The cardiomediastinal silhouette is within normal limits. There is no consolidation, pneumothorax or evidence for edema. No evidence for effusion. No acute osseous abnormality is identified. IMPRESSION: No acute airspace disease identified. [employer] Phone: radiology Study observation (narrative)[employer] Phone: XR CHEST 1 VIEWOrdered By: Ziyad Murrell on 05-16-2022 [employer] Phone: Basic Metabolic Panelon [id number] gap [Moles/Vol]13 mmol/L9 - 17 mmol/LMercy HealthCalcium [Mass/Vol]10.2 mg/dL8.6 - 10.4 mg/dLMercy HealthChloride [Moles/Vol]103 mmol/L98 - 107 mmol/LMercy Health CO2 [Moles/Vol]23 mmol/L20 - 31 mmol/LMercy HealthCreatinine [Mass/Vol]0.59 mg/dLLow0.70 - 1.20 mg/dLMercy HealthGFR >60>60 mL/minMercy HealthGFR Non->60>60 mL/minMercy HealthGlucose [Mass/Vol]147 mg/aRDerr52 - 99 mg/dLMercy HealthInterpretation and review of laboratory resultsAbnormalMercy HealthPotassium [Moles/Vol]4.4 mmol/L3.7 - 5.3 mmol/LMercy HealthSodium [Moles/Vol]139 mmol/L135 - 144 mmol/LMercy HealthUrea nitrogen (BldV) [Mass/Vol]10 mg/dL6 - 20 mg/dLMercy HealthUrea nitrogen/Creatinine (Bld) [Mass ratio]17[facility] Auto Differentialon [id number] Eos #0.09 [facility] CenterAbsolute Immature Granulocyte0.06[facility] CenterAbsolute Lymph #2.21 [facility] CenterAbsolute Grady #0.68MerSwedish Medical Center Cherry HillBasophils (Bld) [#/Vol]0.06 10*3/uL [facility] CenterBasophils/100 WBC (Bld)1 %0 - 2 %[facility] CenterDifferential TypeNOT REPORTEDLakehealth Tripoint Medical CenterEosinophils/100 WBC (Bld)1 %1 - 4 %[facility] Medical CenterHematocrit (Bld) [Volume fraction]41.6 %40.7 - 50.3 %[facility] Hemoglobin.gastrointestinal spec 1 Ql (Stl)14.2 g/dL13.0 - 17.0 g/dLLakehealth Tripoint Medical Center Immature granulocytes/100 WBC (Bld)1 %Gehk1GkwnbLakehealth Tripoint Medical CenterInterpretation and review of laboratory resultsAbnormalLakehealth Tripoint Medical CenterLymphocytes/100 WBC (Bld)35 %24 - 43 % Mercy HospitalH (RBC) [Entitic mass]32.1 pg25.2 - 33.5 pgMercy HospitalHC (RBC) [Mass/Vol]34.1 g/dL28.4 - 34.8 g/dLMercy HospitalV (RBC) [Entitic vol]94.1 fL 82.6 - 102.9 fLLakehealth Tripoint Medical CenterMonocytes/100 WBC (Bld)11 %3 - 12 %[facility] CenterNRBC Automated0.00.0 per 100 WBCLakehealth Tripoint Medical CenterPlatelet distribution width (Bld) [Ratio] 11.9 %11.8 - 14.4 %[facility] CenterPlatelet EstimateNOT REPORTEDLakehealth Tripoint Medical CenterPlatelet mean volume (Bld) [Entitic vol]9.5 fL8.1 - 13.5 fLOhiohealth Riverside Methodist Hospital HealthPlatelets (Bld) [#/Vol]293 10*3/uLLakehealth Tripoint Medical CenterRBC (Bld) [#/Vol]4.42 10*6/uL4.21 - 5.77 m/uLLakehealth Tripoint Medical CenterRBC (Bld) [#/Vol]NOT REPORTEDLakehealth Tripoint Medical CenterSegmented neutrophils/100 WBC (Bld)51 %36 - 65 %[facility] RedVision SystemTempe St. [facility] Absolute3.18Mercy HealthWBC (Bld) [#/Vol]6.3 10*3/uLMercy HealthWBC (Bld) [#/Vol]NOT REPORTEDOhiohealth Riverside Methodist Hospital RedVision SystemSelect Medical [facility] Rehabilitation Hospital, AvonBelmontEKG 12 LeadOrdered By: Coco Anderson on 10-93-3383Vkqgny Kcjk30GSPXkvgu Health Work Phone: P Ptjd72ilxlpqfGmiff Health Work Phone: [phone]-R Ggcsfemp969 msMercVurv Technology Health Work Phone: Q-T Jkdfqnah562 msMercVurv Technology Health Work Phone: QRS Ufdzhnxc52 msMercy Health Work Phone: QTc Calculation (Bazett)418 msMPeel Work Phone: R Ejla09yyjmgwtNtykr Health Work Phone: T Ubpx98itlstyjBaydr Health Work Phone: Ventricular Uswx39BEQQatic Health Work Phone: MerBelmont Work Phone: EKG 12 Leadon 12-18-6736Ucrlda sinus rhythm with sinus arrhythmia Possible Left atrial enlargement Nonspecific ST abnormality Abnormal ECG When compared with ECG of 16-NOV-2020 09:53, QT has shortened Confirmed by COCO ANDERSON ([id number]) on 11/23/2021 12:44:06 PMProMedica Flower HospitalCoco duff MD - 11/23/2021 Normal sinus rhythm with sinus arrhythmia Possible Left atrial enlargement Nonspecific ST abnormality Abnormal ECG When compared with ECG of 16-NOV-2020 09:53, QT has shortened Confirmed by COCO ANDERSON ([id number]) on 11/23/2021 12:44:06 PMOhiohealth Riverside Methodist Hospital [employer] System Work Phone: Hemoglobin A1Con 72-35-0544Ililwhx [Mass/Vol]214 mg/dL Cal[facility]ooHawthorn [facility] on above:The ADA and AACC recommend providing the estimated average glucose result to permit better patient understanding of their HBA1c result. HbA1c (Bld) [Mass fraction]9.1 %High4.0 - 6.0 %[facility] CenterInterpretation and review of laboratory resultsAbnormalAultman Hospital HealthLaboratory - Chemistry and Chemistry - challengeon [id number]/1.73 sq M.predicted MDRD (S/P/Bld) [Vol rate/Area][facility] CenterComment on above:Average GFR for 40-49 years old: 99 mL/min/1.73sq m Chronic Kidney Disease: <60 mL/min/1.73sq m Kidney failure: <15 mL/min/1.73sq m eGFR calculated using average adult body mass. Additional eGFR calculator available at: http://www.Firefly Mobile/multiple_crcl_2011.htm Stage 1: Some kidney damage normal GFR Stage 2: Mild kidney damage GFR 60-89 Stage 3: Moderate kidney damage GFR 30-59 Stage 4: Severe kidney damage GFR 15-29 Stage 5: Severe kidney damage GFR <15 ESRD - chronic treatment by dialysis or transplant No Panel Informationon 88-89-7987Edodm HealthTSH without Reflexon 04-74-5084HCI Qn3.67 m[IU]/LMercy HealthUrinalysis with Microscopicon 11-23-2021-[facility] Amorphous, UANOT REPORTEDNoneMercy HealthBacteria, UANOT REPORTEDNoneMercy HealthBilirubin UrineNegativeNEGATIVEMercy HealthCasts UANOT REPORTED/LPFMercy HealthColor, UAYellowYellowMercy HealthCrystals, UANOT REPORTEDNone /HPFMercy HealthEpithelial Cells UA0 TO 2Mercy HealthGlucose, UrNegativeNEGATIVEMercy HealthKetones Ql (U)NegativeNEGATIVEMercy HealthLeukocyte esterase Test strip Ql (U)NegativeNEGATIVEMercy HealthMucus, UANOT REPORTEDNoneMercy HealthNitrite, UrineNegativeNEGATIVEMercy HealthOther Observations UANOT REPORTEDNOT REQ.[facility] HealthpH, UA6.0Mercy HealthProtein, UANegativeNEGATIVEMercy HealthRBC, UA0 TO 2 Merc HealthRenal Epithelial, UANOT REPORTED0 /HPFMercy HealthSpecific [place], UA1.020Mercy HealthTrichomonas, UANOT REPORTEDNoneMercy HealthTurbidity UAClear ClearMer HealthUrinalysis CommentsNOT REPORTEDLakehealth Tripoint Medical CenterUrine HgbNegative NEGATIVELakehealth Tripoint Medical CenterUrobilinogen, UrineNormalNormalMer HealthWBC, UA0 TO 2 Mercy HealthYeast, UANOT REPORTEDNoneMercy Kettering Health MiamisburgGlucose, Whole Bloodon 65-61-7131Nkpwdzm [Mass/Vol]141 mg/qDQxyg82 - 100 mg/dLClermont County Hospital, IDInterpretation and review of laboratory resultsAbnormCleveland Clinic [facility], [place] COVID-19on [id number]-CoV-2MercMemorial Regional Hospital South, QCHEAF-XkJ-3Vwj DetectedNot DetectedGadsden, KYComment on above: The specimen is NEGATIVE for SARS-CoV-2, the novel coronavirus associated with COVID-19. A negative result does not rule out COVID-19. Ching SARS-CoV-2 for use on the Ching Promisec0/8800 Systems is a real-time RT-PCR test intended [...] this assay. Fact sheet for Healthcare Providers: https://www.fda.gov/media/764869/download Fact sheet for Patients: https://www.fda.gov/media/298310/download METHODOLOGY: RT-PCR SARS-CoV-2, RapidClermont County Hospital, DYANSourcmontrell.THROAT SWABClermont County Hospital, [place] Comment on above:CORRECTED ON 11/17 AT 1007: PREVIOUSLY REPORTED .NASOPHARYNGEAL SWABMRI BRAIN W WO CONTRASTon [id number] MRI of the orbits. Old right basal ganglia lacune. Mild chronic microvascular disease w ithin the periventricular white matter.[facility], DYANEXAMINATION: MRI OF THE BRAIN WITHOUT AND WITH CONTRAST; MRI OF THE BRAIN AND MRI OF THE ORBITS WITH AND WITHOUT CONTRAST 11/17/2020 8:40 am TECHNIQUE: Multiplanar multisequence MRI of the head/brainwas performed without and with the administration of intravenous contrast.; Multiplanar multisequence MRI of the brain and MRI of the orbits was performed with and without intravenous contrast. COMPARISON: None. HISTORY: ORDERING SYSTEM PROVIDED HISTORY: Alternating exotropia FINDINGS: INTRACRANIALSTRUCTURES/VENTRICLES: There is no acute infarct. No mass [...] chronic microvascular disease is identified within the periventricularwhite matter. ORBITS: The visualized portion of the orbits demonstrate no acute abnormality. The globes are symmetric in appearance. No intraconal or extraconal mass lesion is appreciated. The extraocular muscles are normal. The optic chiasm and optic nerves are normal. No abnormal enhancement is appreciated within the orbits. The cavernous sinuses are symmetric. SINUSES: The visualized paranasalsinuses and mastoid air cells are well aerated. BONES/SOFT TISSUES: The bone marrow signal intensity appears normal. The soft tissues demonstrate no acute abnormality.Clermont County HospitalEliot Mhpn Incoming Radiant Results From [employer] - 11/17/2020 11:22 AM EST EXAMINATION: MRI [...] SYSTEM PROVIDED HISTORY: Alternating exotropia FINDINGS: INTRACRANIAL STRUCTURES/VENTRICLES: There is no acute infarct. No mass [...] microvascular disease within the periventricular white matter. [facility], KYBabaptist health corbin Metabolic Panel (BMP)on 79-18-0809Pjrmg gap [Moles/Vol]12 mmol/L9 - 17 mmol/LMsumma health akron campusy Health- [place], KYBun/Cre Jwzdw97Yotxl Health- [place], KYCalcium [Mass/Vol]10.2 mg/dL8.6 - 10.4 mg/dLLakehealth Tripoint Medical Center- [place], [place] Chloride [Moles/Vol]100 mmol/L98 - 107 mmol/LMsumma health akron campusy Health- [place], KYCO2 [Moles/Vol] 23 mmol/L20 - 31 mmol/LMsumma health akron campusy Health- [place], KYCreatinine [Mass/Vol]0.66 mg/dLLow0.7 - 1.2 mg/dLLakehealth Tripoint [facility] Center- [place], KYGFR >60>60 mL/minOhiohealth Riverside Methodist Hospital Health- [place], KYGFR Non->60>60 mL/minOhiohealth Riverside Methodist Hospital Health- [place], KYGlucose [Mass/Vol]145 mg/zWItvc39 - 99 mg/dLLakehealth [facility] Center- [place], KYInterpretation and review of laboratory resultsAbnormalLakehealth [facility] Center- [place], KYPotassium [Moles/Vol]4.2 mmol/L3.7 - 5.3 mmol/LMercy Health- [place], KYSodium [Moles/Vol]135 mmol/L135 - 144 mmol/LMmorrow county hospital Health- [place], KYUrea nitrogen [Mass/Vol]9 mg/dL6 - 20 mg/dLLakehealth [facility]point [facility] Center- [place], IDCBCon 64-66-9392Vtfpxbatfyt distribution width (RBC) [Ratio]12.3 % 11.8 - 14.4 %[facility]- [place], IDHematocrit (Bld) [Volume fraction]40.6 %Low40.7 - 50.3 %[facility]- [place], IDHemoglobin (Bld) [Mass/Vol]13.7 g/dL13 - 17 g/dL [facility]- [place], IDInterpretation and review of laboratory resultsAbnormalLakehealth [facility] Center- [place], IDMCH (RBC) [Entitic mass]32.5 pg25.2 - 33.5 pgLakehealth Tripoint Medical Center- [place], [place] MCHC (RBC) [Mass/Vol]33.7 g/dL28.4 - 34.8 g/dLSt. Francis Hospital [place], IDMCV (RBC) [Entitic vol]96.4 fL82.6 - 102.9 fLLakehealth Tripoint Medical Center- [place], IDPlatelet mean volume (Bld) [Entitic vol]9.4 fL8.1 - 13.5 fLLakehealth Tripoint Medical Center- [place], IDPlatelets (Bld) [#/Vol]210 10*3/[facility]- [place], IDRBC (Bld) [#/Vol]4.21 10*6/uL4.21 - 5.77 m/uLLakehealth Tripoint Medical Center- [place], IDWBC (Bld) [#/Vol]0.0 10*3/uL0.0 per 100 WBCLakehealth Tripoint Medical Center- [place], IDWBC (Bld) [#/Vol]5.5 10*3/uLOhiohealth Riverside Methodist Hospital Health- [place], IDEKG 12 Leadon 11-16-2020 Atrial Lvoj13GHPStoor Health- [place], KYP Gtho01hzybrzmXbram Health- [place], IDP-R Wccivylb084 msMmorrow county hospital [place]- [place], [place]Q-[place] Zuqfcnkg751 [facility] [place], IDQRS Fnmyeypz51 [facility]Mm[facility] [place], IDQTc Calculation (Sona)474 msMercMemorial Regional Hospital South, IDR Tpzo38gmxfzymNewxtOur [facility] of [facility], IDT Uydt40iysypdaEnludReddick, [place] Ventricular Rhju61HYWOcsgjSt. Mary's Medical Center, KYEdi, Mhpn Incoming Ekg Results From [facility] [place] - 11/16/2020 5:30 PM EST Normal sinus rhythm Nonspecific T wave abnormality Abnormal ECG When compared with ECG of 08-AUG-2004 08:48, Nonspecific T wave abnormality now evident in Inferior leads QT has lengthened Confirmed by Adama Aguirre MD ([id number]) on 11/16/2020 5:30:37 [place], [place] Normal sinus rhythm Nonspecific T wave abnormality Abnormal ECG When compared with ECG of 08-AUG-2004 08:48, Nonspecific T wave abnormality now evident in Inferior leads QT has lengthened Confirmed by Adama Aguirre MD ([id number]) on 11/16/2020 5:30:37 [place], KYMetabolic Panelon [id number]/1.73 sq M predicted among non-blacks MDRD (S/P/Bld) [Vol rate/Area][place], [place] Comment on above:Stage 1: Some kidney damage normal GFR Stage 2: Mild kidney damage GFR 60-89 Stage 3: Moderate kidney damage GFR 30-59 Stage 4: Severe kidney damage GFR 15-29 Stage 5: Severe kidney damage GFR <15 ESRD - chronic treatment by dialysis or transplant Average GFR for 40-49 years old: 99 mL/min/1.73sq m Chronic Kidney Disease: <60 mL/min/1.73sq m Kidney failure: <15 mL/min/1.73sq m eGFR calculated using average adult body mass. Additional eGFR calculator available at: http://www.[employer]/multiple_crcl_2012.htm Vital Signs Date TimeVital SignValuePerforming IswysbohiVczznbio19-61-5485 10:53-0400Body .64 cmBenjamin Ball DO Work Phone: [facility]10-30-2025 10:53-0400 Body mass index (BMI) [Ratio]28.2 kg/j6Yeksiqsj Ball DO Work Phone: [facility]10-30-2025 10:53-0400 Body hjwguh67.37 kgBenjamin Ball DO Work Phone: 1(181)162-[address] [place], [place] 5067210-30-2025 10:53-0400 Diastolic blood mm[Hg]Narayan Ball DO Work Phone: [phone] [place], [place] 5067210-30-2025 10:53-0400 Heart rate90 /minBenjamin Ball DO Work Phone: 1419)[facility] [place], [place] 5067210-30-2025 10:53-0400 Respiratory rate18 /minBenjamin Ball DO Work Phone: [phone])[address] [place], [place] 0381610-30-2025 10:53-0400 SaO2% (BldA) [Mass fraction]98 %Narayan Ball DO Work Phone: 1(417)[facility] [place], [place] 5067210-30-2025 10:53-0400 Systolic blood ozbvkjei439 mm[Hg]Narayan Ball DO Work Phone: 1(392)[address] [facility] [place], [place] 0381608-26-2025 15:09-0400 Body rxukto189.6 cmMichael Ballard DO Work Phone: 1(982)[address] [place], [place] 2382808-26-2025 15:09-0400Body mass index (BMI) [Ratio]28.89 kg/y3Hwjunqq Ballard DO Work Phone: 1(076)[address] [place], [place] 2382808-26-2025 15:09-0400Body .19 kgMichael Ballard DO Work Phone: 1(250)[address] [place], [place] 2382808-21-2025 16:28-0400Body yvzmtv807.64 cmBenjamin Ball DO Work Phone: 1(384)[address] [facility] [place], [place] 0381608-21-2025 16:28-0400 Body mass index (BMI) [Ratio]25.7 kg/t9Brqwhcgg Ball DO Work Phone: 1(821)[address] [facility] [place], [place] 0381608-21-2025 16:28-0400 Body leraib28.12 kgBenjamin Ball DO Work Phone: 1(384)[address] [facility] [place], [place] 0381608-21-2025 16:28-0400 Diastolic blood fcloleen08 mm[Hg]Narayan Ball DO Work Phone: [facility]08-21-2025 16:28-0400 Heart velj250 /minBenlailamin Ball DO Work Phone: [facility]08-21-2025 16:28-0400 SaO2% (BldA) [Mass fraction]96 %Narayan Ball DO Work Phone: [facility]08-21-2025 16:28-0400 Systolic blood dvbizfwq85 mm[Hg]Narayan Ball DO Work Phone: [facility]06-06-2025 11:36-0400 Body .64 cmK[facility]06-06-2025 11:36-0400Body mass index (BMI) [Ratio]28.1 kg/w1JcuujomitKettering Health Main Campus06-06-2025 11:36-0400Body guyjop94.15 kgK[facility]06-06-2025 11:36-0400Diastolic blood marjtgvc14 mm[Hg][facility] 04-30-2025 11:36-0400Heart rate97 /[facility] 04-30-2025 11:36-0400Respiratory rate12 /[facility] 04-30-2025 11:36-0400Systolic blood ohshgcda659 mm[Hg][facility]02-27-2025 10:48-0500Body mass index (BMI) [Ratio]27.76 kg/p3RfrtqJu Hoffmann [employer] SUPERVISOR Work Phone: [facility]OO[facility] CenterGguskcjlnj42-79-8066 10:48-0500Body ahobkg28.02 kgJu Hoffmann [employer] SUPERVISOR Work Phone: [facility]OOzarks Medical CenterWapcgobknv89-68-2982 10:48-0500Diastolic blood mm[Hg]Ju Hoffmann [employer] SUPERVISOR Work Phone: noOzarks Medical CenterQqhsuqjppr25-22-7758 10:48-0500Heart rate92 /min Ju Hoffmann [employer] SUPERVISOR Work Phone: [facility] SystemBbvocjlcvj18-31-1589 10:48-4685QfX8% (BldA) [Mass fraction]98 %Ju Hoffmann [employer] SUPERVISOR Work Phone: [facility] SystemZexhomjeqi52-31-6999 10:48-0500Systolic blood uglctzmz859 mm[Hg]Ju Hoffmann [employer] SUPERVISOR Work Phone: [facility] SystemYylsbsjdgh55-21-3452 09:31-0500Body tdhlie022.64 cmK[facility]02-27-2025 09:31-0500Body mass index (BMI) [Ratio]27.5 kg/r9XwsbrygghKettering Health [facility] Campus02-27-2025 09:31-0500Body jpiqws51.33 kgK[facility]02-27-2025 09:31-0500Diastolic blood orexpqpx11 mm[Hg][facility]02-27-2025 09:31-0500 Heart rate97 /[facility]02-27-2025 09:31-0500 Respiratory rate12 /[facility]02-27-2025 09:31-0500 Systolic blood mm[Hg][facility]01-17-2025 13:07-0500Body wvnoor376.64 cmK[facility]01-17-2025 13:07-0500Body mass index (BMI) [Ratio]27.2 kg/e3XhjmusxtfKettering Health [facility] Campus01-17-2025 13:07-0500Body bbjtvpvsnaw64.9 [degF][facility]01-17-2025 13:07-0500Body sosany66.65 kgK[facility] 12-11-2024 13:07-0500Diastolic blood fmhlyiip15 mm[Hg][facility]01-17-2025 13:07-0500Heart lmhh785 /[facility] 12-11-2024 13:07-1089WnU7% (BldA) [Mass fraction]94 %[facility]01-17-2025 13:07-0500Systolic blood mm[Hg][facility]01-08-2025 13:31-0500Body .64 cmK[facility]01-08-2025 13:31-0500Body mass index (BMI) [Ratio]27.3 kg/m2 [facility]01-08-2025 13:31-0500Body xertml44.71 kg [facility]01-08-2025 13:31-0500Diastolic blood zlejkyhp85 mm[Hg][facility]01-08-2025 13:31-0500Heart rate89 /min [facility]01-08-2025 13:31-0500Respiratory rate12 /min [facility]01-08-2025 13:31-0500Systolic blood yaphabjx829 mm[Hg][facility]10-24-2024 10:57-0400Body lhylgw178.64 cmDO Narayan Ball Work Phone: 1(073)760-[address] [place], [place] 5067210-24-2024 10:57-0400 Body mass index (BMI) [Ratio]27.8 kg/m2DO Narayan Ball Work Phone: 1(639)343-[address] [place], [place] 5067210-24-2024 10:57-0400 Body qlmwbu61.24 kgDO Narayan Ball Work Phone: 3(757)682-[address] [place], [place] 5067210-24-2024 10:57-0400 Diastolic blood cmvmhwou67 mm[Hg]DO Narayan Ball Work Phone: 2(083)512-[address] [place], [place] 5067210-24-2024 10:57-0400 Heart hdiv910 /minDO Narayan Ball Work Phone: [phone]10-24-2024 10:57-0400 Respiratory rate20 /minDO Narayan Ball Work Phone: [facility]10-24-2024 10:57-0400 Systolic blood crvqaqmp280 mm[Hg]DO Narayan Ball Work Phone: [facility]08-26-2024 15:05-0400 Body zdnilp222.6 cmChristophlisette Hurtado DO Work Phone: [facility] SystemUzfdrabqxt37-70-0831 15:05-0400Body mass index (BMI) [Ratio]29.7 kg/f1Yaeqxzbvdix Genesis DO Work Phone: [facility] SystemTnkqejpoyz00-28-0524 15:05-0400Body arfnkf14.46 kgChristopher Genesis DO Work Phone: [facility] SystemDulzalqhry57-22-6079 15:05-0400Diastolic blood mm[Hg]Christopher Genesis DO Work Phone: [facility] SystemTofwrwrcfc85-75-6672 15:05-0400Systolic blood kvnehfpp454 mm[Hg]Christopher Gneesis DO Work Phone: [facility] SystemYycesghiuy32-32-3968 11:46-0400Body lvyfdi481.64 cmDO Narayan Ball Work Phone: [phone])780[facility]51[facility]07-31-2024 11:46-0400 Body mass index (BMI) [Ratio]28.1 kg/m2DO Narayan Ball Work Phone: 1(974)405-[address] [place], [place] 5067207-31-2024 11:46-0400 Body iddnuh21.15 kgDO Narayan Ball Work Phone: 1(341)[address]07-31-2024 11:46-0400 Diastolic blood abyppfzt42 mm[Hg]DO Narayan Ball Work Phone: 1(866)540-[address] [place], [place] 5067207-31-2024 11:46-0400 Heart hlya064 /minDO Narayan Ball Work Phone: 1(327)396-[address] [place], [place] 5067207-31-2024 11:46-0400 Respiratory rate12 /minDO Narayan Ball Work Phone: 1(139)902-[address] [place], [place] 5067207-31-2024 11:46-0400 Systolic blood pxsdueyy620 mm[Hg]DO Narayan Ball Work Phone: [phone]06-21-2024 06:52-0400 Body yijdap926.64 cmDO Narayan Ball Work Phone: [phone]06-21-2024 06:52-0400 Body kevgkf94.37 kgDO Narayan Ball Work Phone: 1(779)598-[address] [place], [place] 5067206-13-2024 10:00-0400 Diastolic blood xasysjsd07 mm[Hg]Kashmir Johnsonolo DPM Work Phone: [facility]06-13-2024 10:00-0400Heart rate89 /minKashmir Johnsonolo DPM Work Phone: [facility]06-13-2024 10:00-0400 Respiratory rate15 /minKashmir Johnsonolo DPM Work Phone: [facility]06-13-2024 10:00-6221PeZ0% (BldA) [Mass fraction]93 %Kashmir Consolo DPM Work Phone: [facility]06-13-2024 10:00-0400Systolic blood mclzdaca460 mm[Hg]Kashmir Johnsonolo DPM Work Phone: [facility]06-13-2024 09:21-0400Body hdejanflktk75.8 [degF]Kashmir Johnsonolo DPM Work Phone: [facility]06-13-2024 07:23-0400Body mass index (BMI) [Ratio]28.02 kg/m2Kashmir Johnsonolo DPM Work Phone: [facility]06-13-2024 07:23-0400Body .74 kgJokrystle Johnsonolo DPM Work Phone: [facility]06-07-2024 10:25-0400Body kzkzca515.6 cmMth [facility]06-07-2024 10:25-0400Body mass index (BMI) [Ratio]28.73 kg/m2Mth [facility]06-07-2024 10:25-0400Body qlssxhoqrlc77.01 [degF][facility]06-07-2024 10:25-0400Body ynnbjm55.74 kgMth [facility]06-07-2024 10:25-0400Diastolic blood juzrcfyd19 mm[Hg][facility] hospital06-07-2024 10:25-0400Heart rate 96 /[facility]06-07-2024 10:25-0400Respiratory rate18 /minMth [facility]06-07-2024 10:25-0028ZyC0% (BldA) [Mass fraction]96 %[facility] hospital06-07-2024 10:25-0400Systolic blood mm[Hg][facility] hospital04-18-2024 13:05-0400Body height 167.64 [facility]04-18-2024 13:05-0400Body mass index (BMI) [Ratio]27.4 kg/j3DwuarubiqK[facility] Health [facility]04-18-2024 13:05-0400 Body .11 [facility]04-18-2024 13:05-0400 Diastolic blood mm[Hg][facility]04-18-2024 13:05-0400Heart zskq763 /[facility]04-18-2024 13:05-3899TuI8% (BldA) [Mass fraction]98 %[facility] 03-12-2024 13:05-0400Systolic blood fwgysdbx310 mm[Hg][facility]02-29-2024 10:14-0500Body mbivro689.64 cmK[facility]02-29-2024 10:14-0500Body mass index (BMI) [Ratio]27.8 kg/u6VquubxoibK[facility]02-29-2024 10:14-0500Body rrdgew70.18 [facility]02-29-2024 10:14-0500Diastolic blood hgnyaxwy42 mm[Hg] [facility]02-29-2024 10:14-0500Heart rate71 /[facility]02-29-2024 10:14-0500Respiratory rate16 /[facility]02-29-2024 10:14-0500Systolic blood emkqtcsp18 mm[Hg] [facility]10-27-2023 11:30-0400Body hikiui794.64 cm Narayan Ball Other [employer] Other 10-27-2023 11:30-0400Body mass index (BMI) [Ratio] 28.15 kg/g3Wzhbxoid Ball Other [employer] Other 10-27-2023 11:30-0400Body ewonzl36.11 kgBenjamin Ball Other [employer] Other 10-27-2023 11:30-0400Diastolic blood rvzfbsqu46 mm[Hg] Narayan Ball Other [employer] Other 10-27-2023 11:30-0400Respiratory rate16 /minBenjamin Ball Other [employer] Other 10-27-2023 11:30-0400Systolic blood rohbxazz180 mm[Hg] Narayan Ball Other [employer] Other 04-10-2023 12:00-0400Body fyumcl739.64 cmBenjamin Ball Other [employer] Other 04-10-2023 12:00-0400Body mass index (BMI) [Ratio] 28.34 kg/w8Hfgxumco Ball Other [employer] Other 04-10-2023 12:00-0400Body gwbhqu57.65 kgBenjamin Ball Other [employer] Other 04-10-2023 12:00-0400Diastolic blood mrefmtmo18 mm[Hg] Narayan Ball Other [employer] Other 04-10-2023 12:00-0400Respiratory rate16 /minBenjamin Ball Other [employer] [facility] Other 04-10-2023 12:00-0400Systolic blood yxqlrroz707 mm[Hg] Narayan Ball Other [facility] Other 03-17-2023 10:30-0400Body qqtixy991.64 cmBenjamin Ball Other [facility] Other 03-17-2023 10:30-0400Body mass index (BMI) [Ratio] 27.92 kg/b7Miwusyql Ball Other [facility] Other 03-17-2023 10:30-0400Body kicrjv97.47 kgBenjamin Ball Other [facility] Other 03-17-2023 10:30-0400Diastolic blood kpiwbjxr31 mm[Hg] Narayan Ball Other [facility] Other 03-17-2023 10:30-0400Respiratory rate16 /minBenjamin Ball Other [facility] Other 03-17-2023 10:30-0400Systolic blood shkotafo718 mm[Hg] Narayan Ball Other [facility] Other 02-08-2023 13:15-0500Diastolic blood eilbktcm84 mm[Hg] Phan SALAM [facility]02-08-2023 13:15-0500Heart rate84 /minMaher SALAM [facility]02-08-2023 13:15-0500 Respiratory rate18 /minMaher SALAM [facility]02-08-2023 13:15-7599CkE5% (BldA) [Mass fraction]94 %Phan SALAM [facility]02-08-2023 13:15-0500 Systolic blood rkopwttx272 mm[Hg]Phan SALAM [facility]02-08-2023 13:05-0500 Diastolic blood midswnrk97 mm[Hg]Phan SALAM [facility]02-08-2023 13:05-0500Heart rate95 /minMaher SALAM [facility]02-08-2023 13:05-0500 Respiratory rate18 /minMaher SALAM [facility]02-08-2023 13:05-5581GhI9% (BldA) [Mass fraction]94 %Phan SALAM [facility]02-08-2023 13:05-0500 Systolic blood mm[Hg]Phan SALAM [facility]02-08-2023 13:00-0500 Diastolic blood cdevdfbl67 mm[Hg]Phan SALAM [facility]02-08-2023 13:00-0500Heart rate87 /minMaher SALAM [facility]02-08-2023 13:00-0500 Respiratory rate21 /minMaher SALAM [facility]02-08-2023 13:00-0500 Systolic blood hiduihxa125 mm[Hg]Phan SALAM [facility]02-08-2023 12:50-0500Body czzjnoqvvgn28.42 [degF]Sylvester FITZPATRICK [facility]02-08-2023 11:59-0500Blood Pressure LocationSylvester FITZPATRICK [facility]02-08-2023 11:59-0500Body qnbcllidsyl41.32 [degF]Sylvester FITZPATRICK [facility]12-08-2022 12:12-0500Blood Pressure LocationSue Qureshi [phone]-XincnBarnesville Hospital12-08-2022 12:12-0500Body dsrghonrexb32.88 [degF]Sue Qureshi 021-7423Scwikz-WpxpaBarnesville Hospital12-08-2022 12:12-0500Diastolic blood lbxolaei86 mm[Hg]Sue Qureshi [phone]-ZslqpBarnesville Hospital12-08-2022 12:12-0500Heart rate89 /minSue Qureshi [phone]-SyeagBarnesville Hospital12-08-2022 12:12-0500Systolic blood spixdoji48 mm[Hg]Sue Qureshi [phone]-ZgnwdBarnesville Hospital08-01-2022 11:24-0400Body mass index (BMI) [Ratio]29.54 kg/v8Wvalbtwq Ball DO Work Phone: [employer] [facility] KZWDNA22-02-2383 11:24-0400Body ueydhyamisr17.4 [degF]Narayan Ball DO Work Phone: [employer] [facility] UGSBCY81-85-9595 11:24-0400Body dgbuva82.01 kgBenjamin Ball DO Work Phone: [facility] ROBIMJ99-98-0473 11:24-0400Diastolic blood trdlzayt55 mm[Hg]Narayan Ball DO Work Phone: [employer]08-01-2022 11:24-0400Heart kflq306 /minBenjamin Ball DO Work Phone: [employer]08-01-2022 11:24-0400 Respiratory rate18 /minBenjamin Ball DO Work Phone: [employer]08-01-2022 11:24-1902MxB2% (BldA) [Mass fraction]97 %Narayan Ball DO Work Phone: [employer]08-01-2022 11:24-0400Systolic blood nqsjaitv021 mm[Hg]Narayan Ball DO Work Phone: [employer]06-22-2022 19:21-0400Diastolic blood zxqlohps56 mm[Hg]Narayan Ball DO Work Phone: [employer]06-22-2022 19:21-0400Heart rate95 /minBenjamin Ball DO Work Phone: [employer]06-22-2022 19:21-0400 Respiratory rate18 /minBenjamin Ball DO Work Phone: [employer]06-22-2022 19:21-3443ItJ2% (BldA) [Mass fraction]97 %Narayan Ball DO Work Phone: [employer]06-22-2022 19:21-0400Systolic blood mm[Hg]Narayan Ball DO Work Phone: [employer]06-22-2022 15:46-0400Body mass index (BMI) [Ratio]29.54 kg/e1Whaxqtlp Ball DO Work Phone: [employer]06-22-2022 15:46-0400Body .3 [degF]Narayan Ball DO Work Phone: [employer]06-22-2022 15:46-0400Body puzzza71.01 kgBenjamin Ball DO Work Phone: [employer] MJRFNO16-26-7786 09:02-0500Body ruwvyu957.6 cmKashmir Johnsonolo DPM Work Phone: [facility] CenterHbupip67-77-3534 09:02-0500Body mass index (BMI) [Ratio]29.12 kg/m2Kashmir Kelly DPM Work Phone: [facility] CenterFwvebp02-28-4313 09:02-0500Body dcyqgnvosaa99.9 [degF]Kashmir Kelly DPM Work Phone: [place] [address]Kizzzy88-66-0516 09:02-0500Body lciuhz89.83 kg Kashmir Kelly DPM Work Phone: [facility] CenterFpnttb56-97-0710 09:02-0500Diastolic blood jbfyawwt42 mm[Hg]Kashmir Kelly DPM Work Phone: [facility] CenterKifcln87-27-0155 09:02-0500Heart bqlp829 /min Kashmir Kelly DPM Work Phone: [phone] [address]Rbugfp15-27-4520 09:02-0500Respiratory rate20 /minKashmir Johnsonolo DPM Work Phone: [place] [address]Mhyfxl99-58-2470 09:02-6111WhT6% (BldA) [Mass fraction]96 %Kashmir Kelly DPM Work Phone: [phone] [address]Fqzfki72-20-0188 09:02-0500Systolic blood gfzzyjhv285 mm[Hg]Kashmir Kelly DPM Work Phone: [phone] [address]Dafwdq10-58-5854 10:30-0500BP Efbymmkln94 mm[Hg] Kashmir BioSeekSelect [facility], [facility]onActive [facility] [place], KK03-85-0086 10:30-0500BP Wkkkyxcr648 mm[Hg]Kashmir BioSeekSelect Medical [facility], AvonBelmontSAINT [facility], AD57-63-8956 10:30-0500Pulse (Heart Rate)78 /minKashmir BioSeekSelect Medical [facility]onActive End[facility] [place], EC53-08-5457 10:30-0500Pulse Nuihielc73 %Kashmir Pa [facility] [place], UG91-32-9115 10:30-0500Respiratory Rate18 /Carlton [facility] [place], QZ98-59-9267 09:42-0500Body Ddmnzawqrqf49.1 [degF]Kashmir Pa [facility] [place], UF43-04-9666 08:21-0500BMI (Body Mass Index)30.62 kg/m2krystle Solorio [facility] [place], OA40-34-7983 08:21-0500Body efmkgs22.46 kgkrystle Pa [facility] [place], KB32-82-5920 08:21-6223Zcxwtd228.1 Kylah Solorio [facility], VR97-75-3799 08:02-0500BMI (Body Mass Index)30.67 kg/m2krystle Solorio [facility], AO96-08-7415 08:02-0500Body Tklsmfizifn62.39 [degF]Kashmir Solorio [facility], OD15-40-6488 08:02-0500Body inkzlv84.6 kgkrystle Solorio [facility] [place], ZC39-30-9287 08:02-0500BP Vrqsqnxfj76 mm[Hg]Kashmir Solorio [facility], [place] 11-16-2020 08:02-0500BP Tktnamsr452 mm[Hg]Kashmri Solorio [facility], [place] 11-16-2020 08:02-9631Blmqjz306.1 shaykrystle Solorio [facility], CQ98-92-1210 08:02-0500Pulse (Heart Rate)98 /Carlton KellySelect [facility], Avonjolynn [facility], QY27-00-8987 08:02-0500Pulse Mrwegmfc24 %Kashmir Solorio [facility], QE67-27-0962 08:02-0500Respiratory Rate22 /Carlton KellySelect [facility], Avonjolynn [facility], [place] Encounters Encounter DateEncounter TypeCare ProviderFacilityStart: 09-30-2025 End: 60-10-4620rvwgtltdfgLjerdwah Talal SarminiFacility:Zack-Min DHStart: 09-30-2025 End: 47-03-3622Xupxeax encounter procedureMuhammasanjuana Koko Patel [phone]-IkfzcSelect [facility] Start: 09-23-2025 End: 37-14-7696qdzdrvqazbVteoprrg Ball DO Work Phone: -[facility] ClinicStart: 09-23-2025 End: 82-78-8936Ozfuawr encounter procedureBenjamin Ball DO-[facility] Work Phone: Start: 08-19-2025 End: 45-73-8397pmmxlcciqqIaqtmcql A. JonesFacility:FTMCStart: 08-19-2025 End: 04-94-6331vsgnubyblaLfhqdmnz A. JonesFacility:FTMCStart: 07-20-2025 End: 57-17-6690Wuilsum encounter procedureMichael T Ballard DO Work Phone: [facility] OrthopaedicsComment on above:S/P total knee replacement, right (Primary Dx)Start: 07-20-2025 End: 25-03-3613aearlyuehpYTQHMFU T POWERSNot AvailableStart: 07-20-2025 End: 70-23-5229gsanpniuuxLJZEURZ T POWERSNot AvailableStart: 07-15-2025 End: 62-09-4631ddkbrcekszAtjxtcjf Ball DO Work Phone: [facility] Work Phone: Start: 07-15-2025 End: 40-34-8723Dhxpsce encounter procedureSgolden Hoffmann APRN-FNP-C-[facility] [place] Work Phone: Start: 32-48-5614Kml-patient / Non-visitTifmagalys [facility] Work Phone: Start: 04-30-2025 End: 72-99-8081qxnekucuvoXarrcnensDetwiler Memorial Hospital Work Phone: Start: 04-30-2025 End: 96-69-6326Laqolwn encounter procedureFirbon [facility] Work Phone: Start: 01-21-2025 End: 12-35-4518Arqwqu Aneesh Shun [employer]PER[employer] Work Phone: aGEORGINA PROMEDICA FLOWER HOSPITALUEStart: 01-21-2025 End: 41-91-8165Ozxrkk Aneesh Ralpholl [employer]PERVISOR Work Phone: aNA HENDERSONEVUEStart: 01-21-2025 End: 59-60-8282Rzzwua outpatient visit 25 minutesJu Ralpholl [employer] SUPERVISOR Work Phone: aNA BELLEVUEComment on above:Lacunar infarction (CMS/HCC) (Primary Dx); Aphasia; Tremor; 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CMS/HCC); Psychiatric disorder; KOKI (obstructive sleep apnea); Generalized weaknessStart: 01-21-2025 End: 69-34-9204xogbkaipkgJOHQR SHUNNot AvailableStart: 01-21-2025 End: 90-23-2475ybxkmnnzeeZhbbwmhgeDetwiler Memorial Hospital Work Phone: Start: 01-21-2025 End: 31-49-1140Jkejauw encounter procedureW[facility] Work Phone: Start: [phone]-patient / Non-visitFirholmesvilles [facility] Work Phone: Start: 69-82-5445Gab-patient / Non-visitFirbon [facility]Prov[facility] Work Phone: Start: [phone]-patient / Non-visitFirelands Physician [facility] Work Phone: Start: 12-11-2024 End: 87-48-0450wsoqfrqgjlCdskmqhapMercy Health [facility] Work Phone: Start: 12-11-2024 End: 46-58-7704Dzmnxiv encounter procedureWatauga Medical Center Phys[facility] GroupProvidence [facility] Work Phone: Start: 12-02-2024 End: 95-84-3489htkwiarkwiVwlxyrtxqDetwiler Memorial Hospital Work Phone: Start: 12-02-2024 End: 69-25-1619Dutccfd encounter procedureWatauga [facility] Work Phone: Start: 20-26-9136Ftn-patient / Non-visitWatauga Medical Center [facility] Work Phone: Start: 13-00-4417Mad-patient / Non-visitWatauga Medical Center [facility] Work Phone: Start: 11-05-2024 End: 50-45-6837tlzwlqehidIQDVLYOALarned State Hospitaltart: 11-05-2024 End: 43-17-0033Wtbeebbruu hospital visit by Bong Sanchez OTR/LMTHZ Occupational TherapyComment on above:ArrivedStart: 09-25-2024 End: 82-12-4784bvbgafhnvtJB Narayan Gagnon Work Phone: [facility] Work Phone: Start: 09-25-2024 End: 08-12-6364Tsnuilc encounter procedureDO Narayan Gagnon Work Phone: [facility] Work Phone: Start: 09-17-2024 End: 37-14-1020iqpwhtbpluDK Narayan Gagnon Work Phone: [facility] Work Phone: Start: 09-17-2024 End: 85-65-7315Tcwxbtc encounter procedureDO Narayan Gagonn Work Phone: [facility] Work Phone: Start: 33-21-1724Aho-patient / Non-visitDO Narayan Gagonn Work Phone: [facility] Work Phone: Start: 70-38-1205Yvexoga encounter procedureDO Narayan Cloud[employer] [facility]-2024 End: 87-13-3565Nejpez outpatient visit 25 minutesChristopher Genesis DO Work Phone: noms NE NEUROComment on above:TremorStart: 07-20-2024 End: 52-87-2408Kcwtao flowsheetChristopher Genesis DO Work Phone: NOLB NE NEUROStart: 07-20-2024 End: 93-97-7014Mdzivc flowsheetChristopher Genesis DO Work Phone: NOMS NE NEUROStart: 07-02-2024 End: 07-74-5161Mrdlnyt encounter procedureDO Narayan [employer] Work Phone: [facility] [place] Work Phone: Start: 07-02-2024 End: 25-25-5667nlnlkrfamnES Narayan [employer] Work Phone: [facility] Work Phone: Start: 06-24-2024 End: 23-77-1123rqyjtfwqvcLV Narayan [employer] Work Phone: [facility] Work Phone: Start: 06-24-2024 End: 99-97-7947Iecugre encounter procedureDO Narayan CloudPrime Work Phone: [facility] [employer] [facility] Work Phone: Start: 08-17-8921Yad-patient / Non-visitDO Narayan Gagnon Work Phone: [facility] Work Phone: Start: 05-15-2024 End: 27-47-6372Dyckbjj encounter procedureDO Narayan [employer] Work Phone: [facility] [place] Work Phone: Start: 05-15-2024 End: 08-64-3307qrdpyjyjmlRL Narayan [employer] Work Phone: [facility] Work Phone: Start: 05-07-2024 End: 87-45-8532olglkzkguhGMCE W PALLAVIMirijolynn Mcclendonfin HospitalStart: 05-07-2024 End: 75-69-2628Drtfyukdmi hospital visit by Michi ZELAYAHal Work Phone: mthz ORStart: 05-01-2024 End: 98-45-4107pinwshhzrmZKOMAGVA BALLSelect Medical [facility], Avonjolynn [facility] HospitalStart: 05-01-2024 End: 84-61-0832Afcjwymjbu hospital visit by physicianUp[facility] Hospital Pre Admit Test RmMTHZ PRE ADMITStart: 86-28-6800Kcu-patient / Non-visitDO Narayan Gagnon Work Phone: [facility] [facility] [employer] [facility] [employer] [facility] Work Phone: Start: 03-12-2024 End: 51-74-6048amloigsjvqDvvhjwpjrDetwiler Memorial Hospital Work Phone: Start: 03-12-2024 End: 07-43-8073Oelzcmp encounter procedureW[facility] Work Phone: Start: 01-23-2024 End: 23-87-6988uyrkwcquvqEyubbwkq Ball Other zuuka! HALGI Other Start: 97-63-4083Grvbotaxg encounterBenrick GagnonFPJackson Hospital Medical ClinicStart: 01-23-2024 End: 29-82-9836Vuddevj encounter procedureWatauga [facility] Work Phone: Start: 67-87-7023Spd-patient / Non-visitFirbon [facility]-[employer] Work Phone: Start: 01-03-2024 End: 30-65-4126vhdclqypcvCqxqcjzo Ball Other noINWEBT[employer] Other Start: 97-49-3926Vfldbblqw encounterBenjamin BallFPG [facility] Medical ClinicStart: 12-23-2023 End: 19-16-9312uakpdokreqRystwblu Ball Other noSarbari HALGI Other Start: 93-97-1003Chbtxfwib encounterBenjamin BallFPG [facility] ClinicStart: 12-18-2023 End: 95-50-3692tokgkvovnjUsrhrsxm Ball Other [facility] HALGI Other Start: 46-70-5033Mngrxfjcu encounterBenjamin BallFPG [facility] ClinicStart: 12-09-2023 End: 77-94-7687ilmqasvtlwFxsbywih Ball Other noSarbari HALGI Other Start: 05-81-1488Evnqucdfd encounterBenjamin BallFPG [facility] ClinicStart: 11-13-2023 End: 93-76-6892xedjxmtcqaIanihvbv Ball Other [facility] HALGI Other Start: 12-41-2811Pziaclqci encounterBenjamin BallFPG [facility] ClinicStart: 09-25-2023 End: 55-67-7806rnvlgpxxpxXqfkrebh Ball Other [facility] HALGI Other Start: 06-11-8115Nwdduiaqy encounterBenjamin BallFPG [facility] ClinicStart: 09-20-2023 End: 28-15-2418jskadxyizmJrlsegme Ball Other noINWE[employer] Other Start: 19-79-9858Jucghkp encounter procedureBenjamin BallFPG [facility] ClinicStart: 09-05-2023 End: 30-75-6291yctqahyhleFcmajbvd Ball Other noINWE[employer] Other Start: 62-81-2157Uppyqwenj encounterBenjamin BallFPG [facility] ClinicStart: 09-04-2023 End: 55-80-3071gvqbpkiwidWmgcdpqx Ball Other [facility] HALGI Other Start: 74-43-2984Nsdxafiiy encounterBenjamin BallFPG [facility] ClinicStart: 09-03-2023 End: 48-30-0273kbftwkgwveQhkfjmdp Ball Other [facility] HALGI Other Start: 78-90-6022Hythkjfgw encounterBenjamin BallFPG [facility] ClinicStart: 08-26-2023 End: 28-49-6289ipepnavfnpFzlwozfx Ball Other [facility] HALGI Other Start: 03-90-4106Zbhuyowbn encounterBenjamin BallFPG [facility] ClinicStart: 08-20-2023 End: 28-35-0246bphimgpzknKqgvhnbg Ball Other [facility] HALGI Other start: 62-09-5945Fkrbnbmvi encounterBenjamin BallFP[facility] ClinicStart: 07-16-2023 End: 47-83-6150onffnzplhdMovmowxl Ball Other [facility] HALGI Other Start: 20-09-6150Diwchmdwv encounterBenjamin BallFPG [facility] ClinicStart: 07-09-2023 End: 65-21-1894zfawzrzcsdLfzgrcsw Ball Other noIN[employer] Other Start: 44-51-6707Yvxnvqjqy encounterBenjamin BallFPG [facility] ClinicStart: 07-08-2023 End: 12-60-5247zatqvyxnqmSivaqyxo Ball Other [employer] Other Start: 78-35-1829Rbylwddph encounterBenjamin BallFP[facility] ClinicStart: 05-01-2023 End: 77-89-4558eoenfeozysIzadqiph Ball Other [employer]IN[employer] Other Start: 63-23-0082Fjvffhxsc encounterBenjamin BallFPG [facility] ClinicStart: 03-19-2023 End: 48-31-8411wpyiyjahwrOeghokwl Ball Other [employer] Other Start: 25-71-0130Sqpstfbiq encounterBenjamin BallFPG [facility] ClinicStart: 03-18-2023 End: 47-08-5137baeigpdiboRlawlpef Ball Other [facility] HALGI Other Start: 97-80-3027Wgiobzijl encounterBenjamin BallFPG [facility] ClinicStart: 03-14-2023 End: 22-16-7126sapukikpymAK NARAYAN BALLFacility:L2Dmsej: 03-07-2023 End: 08-74-2426xudhoyynsxJjxorogm Ball Other noSarbari HALGI Other Start: 65-63-8313Ldjrgqktr encounterBenjamin BallFP[facility] ClinicStart: 03-04-2023 End: 85-31-4249xtvjtcjpfuCojvgcsp Ball Other [employer]IN[employer] Other Start: 95-00-1684Yzhdjw outpatient visit 25 minutes Narayan BallFPG [facility] ClinicStart: 02-19-2023 End: 22-35-1483ugboyesysqXvzclqhd Ball Other [employer] Other Start: 79-27-2330Phltdwqfa encounterBenjamin BallFPG [facility] ClinicStart: 02-15-2023 End: 77-71-3148fphzbbwguxVyquxmzi Ball Other noSarbari HALGI Other Start: 84-18-9783Hkqzlbwsz encounterBenjamin BallFPG [facility] ClinicStart: 91-41-0135fnynwcpvskCOZVNU MORRISFacility:S1Fkixu: 02-11-2023 End: 80-02-8795abhzlwqtzgIxzipfck Ball Other [facility] HALGI Other Start: 61-64-5248Xsfycldew encounterBenjamin BallFPG [facility] ClinicStart: 83-38-1937Xtsvph outpatient visit 25 minutesBenlailamin BallFPG Ball Medical ClinicStart: 33-52-4703Qygfumlkd encounterBenlailamin BallFPG [facility] ClinicStart: 02-08-2023 End: 25-04-3444zpzrvmifepKK STACY [facility] HALGI Other Start: 01-02-2023 End: 92-31-9626Sifbmej encounter procedureSylvester FITZPATRICK [facility] Start: 12-20-2022 End: 86-39-1257hslhekmzzjKG MICHAEL POWERSFacility:M0Hhghu: 11-01-2022 End: 98-31-2289Itswqkg encounter procedureBesushant Qureshi 083-0587Vjwghm-PnnpnSelect Medical [facility] Start: 11-01-2022 End: 23-43-9170ovyozfzonkFO NARAYAN BALLFacility:R8Gwewn: 55-82-2406Vez- procedure evaluation checkBenlailamin Ball Other noSarbari HALGI Other Start: 09-20-2022 End: 33-70-4464Dvistmh encounter procedureLesly Baeza [facility] Start: 06-25-2022 End: 97-01-5336Cxyxbvtze department patient visitNarayan Gagnon DO Work Phone: [facility] EDComment on above:Acute upper respiratory infection (Primary Dx)Start: 06-15-2022 End: 92-09-6461jhtabqsmcmFX NARAYAN BALLFacility:C1Ozuvl: 05-17-2022 End: 58-35-6661Iwxoksgyiu and management of [facility] Centertart: 05-16-2022 End: 01-46-8307Nhbzjpshj department patient visitNarayan Gagnon DO Work Phone: [facility] EDComment on above:Suicidal ideation (Primary Dx); Homicidal ideationsStart: 11-23-2021 End: 72-83-4736Vkpocxhxbo hospital visit by Michi Kelly DPM Work Phone: mthz LaboratoryStart: 11-24-2020 End: 51-55-8652Zznkukcyoy hospital visit by Michi Kelly Work Phone: mthz ORStart: 11-17-2020 End: 96-39-3319Hxjwsyicfm hospital visit by physicianUpstate University Hospital Covid19 Pat Screening ScheduleMTHZ PRE ADMITComment on above:Preoperative testingStart: 11-17-2020 End: 09-47-3870Ezxyacagha hospital visit by physicianUpstate University Hospital 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; Alternating exotropia; Diplopia; Dysfunction of both inferior oblique musclesStart: 11-16-2020 End: 56-56-2291Ujpcmamfcf hospital visit by Michi Kelly Work Phone: mthz PRE ADMITStart: 03-04-2018 End: 97-14-6163UxyceqpkkjGZPCEHP PHYSICIANFacility:UTMCStart: 02-28-2018 End: 42-34-2815XfsqkvkttuOCOXVDD PHYSICIANFacility:[facility] Procedures DateProcedureProcedure DetailPerforming ClinicianStart: 68-63-1432Gxnlyifunw examination knee 3 viewsMichael T Ballard DO Work Phone: Start: 49-69-4704FW angiography of headDO Narayan Gagnon Work Phone: Start: 86-95-5265MF angiography of neck vesselsDO Narayan Gagnon Work Phone: Start: 33-60-0099PIU of headDO Narayan Chelsi Work Phone: Start: 90-30-7969UNHONJT, WHOLE BLOODJoel W Consolo DPM Work Phone: Start: 46-76-8425Nbviz metabolic panel calcium total Kashmir W Consolo DPM Work Phone: Start: 85-83-2499Hdd routine ecg w/least 12 lds i&r onlyJoel W Consolo DPM Work Phone: Start: 90-32-2347OzdbqcfbtimEjcoizifvxg Genesis DO Work Phone: Start: 30-55-1380AvzilbhgtsaPdxzk SALAM Start: 92-45-6233PbvnktztdweimxqfwenevmxzrhFxkxg SALAM Start: 26-01-0366Gspeuaprtc exam chest single viewYusef oJse Alfredo SAMPSON-Joseluis Work Phone: Start: 56-11-9515CYAPR-19, RAPIDJakateia J Rosado DO Work Phone: Start: 34-53-0248Itcfkyrjjp exam chest single view Abi Pepper BRAKE MACHINE OPERATOR - GUEST SERVICE MANAGER Work Phone: Start: 88-72-4061Zxgoi of acetaminophenAbi Pepper BRAKE MACHINE OPERATOR - GUEST SERVICE MANAGER Work Phone: Start: 61-46-1797Lwnls of ethanolAbi Pepper BRAKE MACHINE OPERATOR - GUEST SERVICE MANAGER Work Phone: Start: 08-04-8978Lhxaw of salicylateAbi Pepper BRAKE MACHINE OPERATOR - GUEST SERVICE MANAGER Work Phone: Start: 46-33-6668Fpguyzhtfuvyh metabolic panelAbi Pepper BRAKE MACHINE OPERATOR - GUEST SERVICE MANAGER Work Phone: Start: 59-06-3956Font tst prsmv instrmnt chem analyzers pr dateAbi Pepper BRAKE MACHINE OPERATOR - GUEST SERVICE MANAGER Work Phone: Start: 23-52-5226AVFDW-19, RAPIDAbi Pepper BRAKE MACHINE OPERATOR - GUEST SERVICE MANAGER Work Phone: Start: 91-63-5672Oau routine ecg w/least 12 lds i&r onlyAbi Pepper BRAKE MACHINE OPERATOR - GUEST SERVICE MANAGER Work Phone: Start: 65-47-2120Ejbxi knee replacementHilary Timmis Start: 20-56-3874Dml routine ecg w/least 12 lds i&r onlyJoel W Consolo DPM Work Phone: Start: 14-87-6985Fsnaw metabolic panel calcium total Narayan Ball DO Work Phone: Start: 18-26-6091Cxxbe dip stick/tablet reagent auto microscopyBenjamin Ball DO Work Phone: Start: 38-77-6950UCLIDPM, WHOLE BLOODJoel W Consolo Work Phone: Start: 50-06-6747QAKMX-19Luis E Jay Work Phone: Start: 31-68-9217Drd brain brain stem w/o w/contrast Mark Quintana Work Phone: Start: 10-18-0612Xon routine ecg w/least 12 lds i&r onlyJoel W Consolo Work Phone: Start: 46-70-7859VGD REPORTHpf ScanningStart: 43-96-3638Qeqad metabolic panel calcium totalJoel W Consolo Work Phone: Start: 53-86-0905Vyzlj count complete automatedJoel W Consolo Work Phone: Start: 76-88-6044AmfkobakxsuaytWsuytn Timmis Start: 00-35-5027Favnqifqgpwq cardiovascular examinationBenjarick Gagnon Other Arthroscopy of kneeHilary Timmis bilateral inguinal hernia repairHilary Timmis Decompression of median nerveHilary Timmis Excision of cholesteatomaHilary Timmis History of repair of umbilical herniaHilary Timmis Nasal polypectomyHilary Timmis Removal of toenailHilary Timmis Surgical procedure on eye proper using laserHilary Timmis Plan of Treatment DateCare ActivityDetailAuthorStart: 49-93-3808Wfofrsmyb for malignant neoplasm of colonNOMS HealthcareStart: 35-58-0905WMmL/Tdap/Td vaccine (4 - Td or Tdap) DTaP/Tdap/Td vaccine (4 - Td or Tdap)[facility]Start: 07-26-2025 Influenza vaccinationInfluenza Vaccine (#1)[facility] HealthcareStart: 70-81-4004HKO test (Diabetes, CKD 3-4, OR last GFR 15-59)GFR test (Diabetes, CKD 3-4, OR last GFR 15-59)[facility] SYSTEMStart: 04-21-2025 End: 80-20-8556Tlqblqa encounter ugnusyqsz80/28/2025 3:40 PM EDT Office Visit HERNANDO CAMPBELL [address] [place] [phone] Ju Hoffmann NP [address] [place] [phone] HERNANDO STARKtart: 01-21-2025 End: 14-66-2261Bilbwcg encounter /27/2025 11:00 AM EST Office Visit HERNANDO CAMPBELL [address] [place] [address] Ju HoffmannSHANE [address] [place] [address] Tony ADRIANComment on above:ArrivedStart: 44-21-6081BZCFH-19 Vaccine ()COVID-19 Vaccine ()[facility] Start: 06-39-3480Caxkjpduo vaccinationInfluenza Vaccine (#1)[facility] Start: 07-20-2024 End: 15-76-2800Jrgfdrv encounter jquamgwxp94/26/2024 3:15 PM EDT Office Visit NOMLucio NE NEURO [address] [place] [phone] Coco Hurtado DO [address] [place] [address] ArrivedNO NE NEUROComment on above:ArrivedStart: 05-07-2024 End: 92-86-2378Vfusnfsbu to same day surgery cwfddd1605/07/2024 8:30 AM EDT - 05/07/2024 9:15 AM EDT Surgery [facility] OR [address] [place], [place] [id number] Kashmir Kelly, DPM [address] [id number] NAILBED EXCISION MATRIXECTOMY- DIGITS 1,4,5MTHZ ORComment on above:NAILBED EXCISION MATRIXECTOMY- DIGITS 1,4,5Start: 05-07-2024 End: 61-22-0376Txicmrgdqt ebvjetsddyle94/13/2024 8:30 AM EDT Anesthesia Event [facility] OR [address] [place], [place] [id number] Janna Love, BRAKE MACHINE OPERATOR - PROOFING MACHINE OPERATOR [address] [facility] [address] AISHWARYA Crowley [address] [facility] ORStart: 05-07-2024 End: 41-70-1034Fqdrkvkj nail matrix permanent removalUc Medical Center HospitalStart: 76-25-6712Kaxwskxjkc hospital visit by desqfddhj20/13/2024 8:30 AM EDT Hospital Encounter [facility] OR [address] [id number] Kashmir Kelly, DPM [address] [phone] [facility] ORStart: 34-74-4499RAvF/Tdap/Td vaccine (2 - Td or Tdap)DTaP/Tdap/Td vaccine (2 - Td or Tdap)[facility] CenterStart: 35-91-2688ZUmZ/Tdap/Td vaccine (2 - Td)DTaP/Tdap/Td vaccine (2 - Td)[facility] [place]Start: 25-74-7564Aakkha Wellness Visit (Medicare)Annual Wellness Visit (Medicare)[facility] Centerart: 67-08-1710OKKGD-19 Vaccine ( season)COVID-19 Vaccine ( season)[facility] Start: 41-85-1814Inztaouw vaccine (1 of 2)Shingles vaccine (1 of 2)[facility] Centerart: 12-49-9148Cjxgobcnlx measurementCreatinine [facility] CenterStart: 54-98-2565Losphfiszs A1c qnznqygdwzkH5T test (Diabetic or Prediabetic)[facility] Centerart: 91-91-6200Pfjbqsfqq monitoring Potassium monitoringLakehealth Tripoint Medical CenterStart: 43-75-9169Wfilkvkjs vaccinationBON [facility] Centerart: 31-02-9234Hnristjody A1c taaubzwbvppF3I test (Diabetic or Prediabetic)[facility] CenterStart: 11-30-2021 End: 22-27-0023Tbbxcoqnf to same day surgery ambonx8611/30/2021 Surgery IP Unit Kashmir Kelly, DPM [address] [place] [address] NAILBED EXCISION MATRIXECTOMY-HALLUXMTHZ ORComment on above: NAILBED EXCISION MATRIXECTOMY-HALLUXStart: 11-30-2021 End: 88-59-5930Tcaxdeya nail matrix permanent removalNAILBED EXCISION MATRIXECTOMY CHRONIC INGROWNS 11/30/2021 8:00 AM [facility] Start: 09-14-6900Ludnqxwppc hospital visit by hocpixlll03/06/2022 Hospital Encounter IP Unit Kashmir Kelly, GARCIAM [address] [place] [address] [facility] ORStart: 74-59-0731Injqndoqay measurement Creatinine monitoringWilson [facility]: 48-95-2789Xuvnrkxgc monitoring Potassium monitoringWilson Street Hospital: 86-71-9511JZNAN-19 Vaccine (3 - Booster for Pfizer series)COVID-19 Vaccine (3 - Booster for Pfizer series)[facility]: 74-12-3760ZZTVD-19 Vaccine (3 - Booster for Pfizer series)COVID-19 Vaccine (3 - Booster for Pfizer series)[facility]: 07-26-2021 Influenza vaccinationFlu vaccine (#1)[facility]: 11-24-2020 End: 93-78-7489Zjgcpbxp EncounterMTHZ ORComment on above:FOOT LESION BIOPSY EXCISION, PLANTARStart: 05-33-1365Wvjrju Wellness Visit (AWV)Annual Wellness Visit (AWV)[facility]: 65-03-2287Nnrwzekyr vaccinationFlu vaccine (#1)[facility]: 26-83-5587Fyiootdkr for malignant neoplasm of colonCrystal Clinic Orthopedic Center: 60-77-6124Oekgvogn screenDiabetes screenWilson Street Hospital: 80-10-7651Nbgmxtgz screenDiabetes screenCrystal Clinic Orthopedic Center: 34-08-6439Uyqnrwjusjvm 0-64 years Vaccine (2 of 2 - PCV)Pneumococcal 0-64 years Vaccine (2 of 2 - PCV)[facility]: 96-02-8072Lnkrybcfq B vaccine (1 of 3 - 19+ 3-dose series)Hepatitis B vaccine (1 of 3 - 19+ 3-dose series)[facility]art: 23-26-0601Yryujlrnd B vaccine (1 of 3 - Risk 3-dose series)Hepatitis B vaccine (1 of 3 - Risk 3-dose series)[facility]art: 28-13-2007Vzqehbje retinal examDiabetic retinal examWVUMedicine Harrison Community Hospitalart: 15-77-0245Dejxqzku screeningDiabetic retinal examCentra Southside Community Hospitalart: 46-15-7645Agrvzpgbu C screeningHepatitis C screenBON [facility] Centerart: 00-12-9515Nmapm screening for proteinWVUMedicine Harrison Community Hospitalart: 1988 HIV screeningHIV screenWVUMedicine Harrison Community Hospitalart: 99-84-4721Rjbpsnxgxp Monitoring Depression MonitoringCentra Southside Community Hospitalart: 60-49-0976Txnsgqbaba Screen Depression [facility]: 29-74-7806Kamupxiq foot examinationDiabetic foot examWVUMedicine Harrison Community Hospitalart: 45-96-4874Lmhmj panelWVUMedicine Harrison Community Hospitalart: 1979 Pneumococcal 0-64 years Vaccine (1 - PCV)Pneumococcal 0-64 years Vaccine (1 - PCV)[facility] Hospitalart: 38-22-5130Lsxunewre B vaccine (1 of 3 - 3- dose series)Hepatitis B vaccine (1 of 3 - 3-dose series)[facility] Start: 74-35-9699Taeggfwzd C screeningHepatitis C screenWVUMedicine Harrison Community Hospitalart: 87-25-6171Qvebjwzbv for malignant neoplasm of colonNOMS HealthcareComprehensive metabolic 2000 panel - Serum or PlasmaKettering Health [facility] Campus End: 06-25-0302Lrhhleu, UrineOhiohealth Riverside [facility] Hospital [employer] Work Phone: Comment on above:Once for 1 Occurrences starting 11/23/2021 until 11/23/2021 End: 18-01-9804Gpinuwv [Mass/volume] in Serum or PlasmaPOCT Glucose Point of Care Testing Routine One Time for 1 Occurrences starting 05/07/2024 until 04/25ON DAVION [employer] Work Phone: Comment on above:One Time for 1 Occurrences starting 05/07/2024 until 05/07/2024 End: 71-60-1356FUFP GlucosePOCT Glucose Point of Care Testing STAT One Time for 1 Occurrences starting 11/24/2020 until 11/24/2020[facility] [place]Comment on above:One Time for 1 Occurrences starting 11/24/2020 until 11/24/2020Surgical PathologySurgical Pathology Lab Routine Release Upon Ordering for 1 Occurrences starting 11/24/2020[facility], [place]Comment on above:Release Upon Ordering for 1 Occurrences starting 11/24/2020[facility] [place] Immunizations Immunization DateImmunizationNotesCare JmnrguwmFpvqajrq53-23-7317jgbutwuhm, seasonal, injectable, preservative freeDO Narayan Gagnon Work Phone: [facility]11-01-2024influenza virus vaccine, unspecified formulationSaracarlyn Hoffmann NP Work Phone: noOzarks Medical CenterNjdztkfryb49-52-0236hgvqiqidu, injectable, quadrivalent, preservative freeBenjesse Gagnon Other [facility]10-27-2023influenza virus vaccine, unspecified formulationChristopher Genesis SOTELO Work Phone: noOzarks Medical CenterBrsymqzkov84-35-5851wzkiwzvvl virus vaccine, split virus (incl. purified surface antigen)Narayan Gagnon Other [employer] Other [id number] virus vaccine, unspecified formulationSue Qureshi [phone]-TnwllSelect Medical [facility] [place] [facility] Eoghyu26-20-5341 SARS-CoV-2 (COVID-19) mRNA BNT-162b2 Alyce Qureshi [phone]-GsguySelect Medical Specialty [facility] Unsici16-07-7962 SARS-CoV-2 (COVID-19) mRNA BNT-162b2 Alyce Kiera [phone]-NnkxzSelect [facility] HealthComment on above:Result Comment: 2022-10-31: BRL7938-29-5101nmuhdweoc virus vaccine, split virus (incl. purified surface antigen)Narayan Gagnon Other [employer] Other [id number] virus vaccine, unspecified formulationK[facility]tering Health [facility] Campus10-14-2019influenza virus vaccine, unspecified formulationBesushant Kiera [phone]-HdbbtBarnesville Hospital10-08-2019 influenza virus vaccine, split virus (incl. purified surface antigen)Narayan Gagnon Other noINWEBT[employer] Limited Other [id number] virus vaccine, unspecified formulationK[facility]tering Health Main Campus09-21-2018influenza virus vaccine, split virus (incl. purified surface antigen)Narayan Gagnon Other [employer] Other [id number] virus vaccine, unspecified formulationKettering Health Main Campus09-19-2018influenza virus vaccine, split virus (incl. purified surface antigen)Narayan Gagnon Other [employer] Other [id number] virus vaccine, unspecified formulationEvaristosushant MathisKiera [phone]-LkeglBarnesville Hospital10-10-2016 influenza virus vaccine, unspecified formulationBesushant Kiera [phone]-GzkqhBarnesville Hospital10-10-2016 tetanus and diphtheria toxoids, adsorbed, preservative free, for adult use (5 Lf of tetanus toxoid and 2 Lf of diphtheria toxoid)Narayan Gagnon Other [facility]10-21-2014tetanus and diphtheria toxoids, adsorbed, preservative free, for adult use (5 Lf of tetanus toxoid and 2 Lf of diphtheria toxoid)Narayan Gagnon Other [facility]04-30-2014tetanus toxoid, reduced diphtheria toxoid, and acellular pertussis vaccine, adsorbedBeth Kiera [phone]-DrsirSelect Medical Specialty Hospital [facility], Inc Zompsc17-66-7216 tetanus and diphtheria toxoids, adsorbed, preservative free, for adult use (5 Lf of tetanus toxoid and 2 Lf of diphtheria toxoid)Narayan Gagnon Other [facility]09-12-2001 pneumococcal polysaccharide vaccine, 23 valentBesameermin Chelsi Other [facility] Payers DatePayer CategoryPayerPolicy [id number]-heq [id number] 2019Medicaid [id number] 2000Medicare 1.2.840.481722.1.13.693.2.7.3.346[id number] 2..1.701379.3.57[id number] 2.840.1.702560.3.57[id number] 2.0.1.649061.3.57[id number] 2.0.1.429432.3.57[id number] 2.0.1.926434.3.57[id number] 2.16.840.1.098215.3.57[id number] 2.16.840.1.128000.3.57[id number] 2.16.840.1.072995.3.57[id number] 2.16.840.1.335688.3.57[id number] 2.16.840.1.561112.3.579.[id number] 2.840.1.650581.3.57[id number] 2.16840.1.548923.3.57[id number] 2.840.1.415501.3.57[id number] 2.16840.1.231462.3.579.[id number] 2.16840.1.466004.3.57[id number] 2.840.1.478663.3.57[id number] 2.840.1.324807.3.57[id number] 2.840.1.502823.3.579.2.727 [id number] 1.2.840.765495.1.13.239.2.7.3.276111.315 [id number] 1.2.840.002442.1.13.239.2.7.3.585394.315[facility] Psych- Part A [id number] .16.840.1.8[id number] 01.10.840.1.833928.3.579.2.531 Social History DateTypeDetailFacilityStart: 07-30-2014 End: 86-93-2559Fgsbbbn smoking status [place] Start: 11-16-2020 End: 56-87-2059Sxgxwdg use and exposureNever usedMercy Health St. Vincent Medical Centerart: 11-16-2020 End: 75-40-7956Zrqzyha intakeCurrent non-drinker of alcohol (finding)[facility]: 21-58-0933Rzh Assigned At BirthNot on fileWilson Street Hospital: 05-06-2022 End: 65-58-7263Qjvhmvxe to SARS-CoV-2 (event)[address] Hospital: 05-17-2022 End: 69-17-4776Prhcihv SDOH Alcohol Tkqxvuzsl9JLN [facility]ITALHartman Wright Phone: History of tobacco useCurrent smokerCHARLTON MEMORIAL HOSPITALBeamExpress Phone: start: 15-15-0411Zbdfkhl SDOH Alcohol Std Pjnkqu08RTU SECRealtimeBoard [facility]ITALHartman Wright Phone: start: 06-15-2022 End: 72-99-5386Cctbjmbd to SARS-CoV-2 (event)YesBON Jini Phone: start: 10-28-2020 End: 60-33-9192Xpnahmx smoking statusNever smoked tobacco (finding)[facility]2022 End: 21-84-9171Qag Assigned At BirthMaleFCentervilleTobacco smoking statusNeHolmes County Joel [facility] Digestive HealthStart: 1975 Sex Assigned At BirthMalGlenbeigh Hospitaltart: 05-18-2022 End: 96-35-5128Ryzeytt of Social functionBON Butter SystemsHow often to you have a drink containing alcohol?NeverBON Cinema[employer] HEALTHStart: 06-11-2024 End: 95-16-1572Nsqtzzmnn beverage intakeLifetime non-drinker (finding)[facility] HealthcareStart: 62-07-1541Bpkkogj Commentcaffeine: >4 cups per dayNOMS HealthcareStart: 12-02-2024 End: 24-84-7929IrpVzpo (finding)[facility] Hospitalexual [facility] Medical Equipment Procedure CodeEquipment CodeEquipment Original TextEquipment IdentifierDatesKNEE TOTAL ARTHROPLASTY Isamar Malina SOTELO Jennie 01/22/22 Non Biological Knee R {01}[id number]{10}[id number]{[id number] FDAStart: 96-55-1296Wjpif: 07-16-2023 Blood Sugar Diagnostic (True Metrix Glucose Test Strip) stripStart: 01-21-2024 Lancets (Trueplus Lancets) 33 gauge miscStart: 58-18-0634Hrzkt Sugar Diagnostic (True Metrix Glucose Test Strip) stripStart: 01-21-2024 End: 19-95-8314YnvcftgNzoqf: 01-21-2024 End: 48-72-9825EsewludMyial: 01-21-2024 End: 34-02-7679AuqvwmbXbqxs: 01-21-2024 End: 51-69-3482Oahgt Sugar Diagnostic (True Metrix Glucose Test Strip) strip Start: 27-49-1934QvlywqvTaqkm: 84-83-6000Dqzuxxh (Thin Lancets) 26 gauge misc Start: 23-35-6998Oxrsj Sugar Diagnostic (True Metrix Glucose Test Strip) strip Start: 01-21-2024 End: 95-08-9593HqaxpdkXexgy: 01-21-2024 End: 03-89-5771GqaavckMpxcy: 01-21-2024 End: 67-74-7724PwoybslKyrcg: 01-21-2024 End: 24-45-9529LlqvyaqZuyec: 04-08-2024 End: 18-44-6041Rvamvzy (Trueplus Lancets) 33 gauge miscStart: 01-23-2024 End: 96-17-0437Exkqw Sugar Diagnostic (True Metrix Glucose Test Strip) strip Start: 33-09-3114VqdviwkBakdx: 13-48-1642Ijlkxkw (Thin Lancets) 26 gauge misc Start: 04-73-8404Racsv Sugar Diagnostic (True Metrix Glucose Test Strip) strip Start: 01-21-2024 End: 00-05-2247JncxtlcUkqvr: 01-21-2024 End: 95-16-2542NzvedysTyjty: 01-21-2024 End: 81-60-6559ZhjccxmPymki: 01-21-2024 End: 64-80-4794FptojljIfyxd: 04-08-2024 End: 16-78-3250Hyltruk (Trueplus Lancets) 33 gauge miscStart: 01-23-2024 End: 26-09-9661Rguis Sugar Diagnostic (True Metrix Glucose Test Strip) strip Start: 12-08-6840GpdrrfmMuvtx: 87-44-1490Rzxsucp (Thin Lancets) 26 gauge misc Start: 81-02-4326Skpyb Sugar Diagnostic (True Metrix Glucose Test Strip) strip Start: 01-21-2024 End: 75-91-4901UdbsvvpVjqmq: 01-21-2024 End: 45-85-7495AiqyekiFsezj: 01-21-2024 End: 64-34-7916HdtarbcLvjmd: 01-21-2024 End: 53-49-4283ErcduabSbfwv: 04-08-2024 End: 85-65-7084Lvwkxid (Trueplus Lancets) 33 gauge miscStart: 01-23-2024 End: 03-69-5744Ebijn Sugar Diagnostic (True Metrix Glucose Test Strip) strip Start: 17-44-6481VmlnwxlMtkgk: 69-73-7253Vltmlav (Thin Lancets) 26 gauge misc Start: 58-16-6231Julsk Sugar Diagnostic (True Metrix Glucose Test Strip) strip Start: 01-21-2024 End: 95-61-0670XdxazyaRpcll: 01-21-2024 End: 66-93-1615IocbbcjKgofd: 01-21-2024 End: 60-26-3804PruvcxxObepr: 01-21-2024 End: 02-12-5000CpzplmoUjdyg: 04-08-2024 End: 68-65-8997Yxzzlus (Trueplus Lancets) 33 gauge miscStart: 01-23-2024 End: 02-65-5472Kkouz Sugar Diagnostic (True Metrix Glucose Test Strip) strip Start: 43-00-4045VgalexaPeuln: 19-15-6717Gbmqefa (Thin Lancets) 26 gauge misc Start: 21-21-7501Vvfsd Sugar Diagnostic (True Metrix Glucose Test Strip) strip Start: 01-21-2024 End: 55-51-9883UhsxvkmBkyjo: 01-21-2024 End: 79-25-0411PlroahfVpgox: 01-21-2024 End: 73-29-3321NnnpvpkGlift: 01-21-2024 End: 37-30-6703WuuhsroEmrdr: 04-08-2024 End: 58-85-5495Unjjuui (Thin Lancets) 26 gauge miscStart: 04-13-2024 End: 57-00-0333Mjrfiwh (Trueplus Lancets) 33 gauge miscStart: 01-23-2024 End: 43-25-0105Fwhbc Sugar Diagnostic (True Metrix Glucose Test Strip) strip Start: 30-52-2822Eezwjyt (Thin Lancets) 26 gauge miscStart: 39-45-1765Iukqtdn 26 gauge miscStart: 13-64-0802Uxkkl Sugar Diagnostic (True Metrix Glucose Test Strip) stripStart: 01-21-2024 End: 08-51-5806Hrdkrnu (Thin Lancets) 26 gauge miscStart: 04-13-2024 End: 35-10-4239Hllnfdo (Trueplus Lancets) 33 gauge miscStart: 01-23-2024 End: 41-90-4167Kbhhvez 26 gauge miscStart: 01-21-2024 End: 59-01-5738Tyhqxxz 26 gauge miscStart: 01-21-2024 End: 95-85-9431Imlfkck 26 gauge miscStart: 01-21-2024 End: 64-78-5136Bvttbwd miscStart: 04-08-2024 End: 29-39-1515Rlbrd Sugar Diagnostic (True Metrix Glucose Test Strip) strip Start: 80-77-2568Wwjllna (Thin Lancets) 26 gauge miscStart: 02-76-2911Hivexnq 26 gauge miscStart: 81-55-3366Itpkj Sugar Diagnostic (True Metrix Glucose Test Strip) stripStart: 01-21-2024 End: 40-50-0867Lxxldtj (Thin Lancets) 26 gauge miscStart: 04-13-2024 End: 26-06-3212Pgiblam (Trueplus Lancets) 33 gauge miscStart: 01-23-2024 End: 16-02-2586Wckctio 26 gauge miscStart: 01-21-2024 End: 18-69-7690Fdaglwj 26 gauge miscStart: 01-21-2024 End: 58-21-6812Rbptjqo 26 gauge miscStart: 01-21-2024 End: 89-22-0297Lhsnqqx miscStart: 04-08-2024 End: 13-96-5688Ijvls Sugar Diagnostic (True Metrix Glucose Test Strip) strip Start: 90-74-5498Ropdafi (Thin Lancets) 26 gauge miscStart: 91-23-4180Qxzawwl 26 gauge miscStart: 05-17-7982Bunfi Sugar Diagnostic (True Metrix Glucose Test Strip) stripStart: 01-21-2024 End: 29-31-5893Zgbzwvx (Thin Lancets) 26 gauge miscStart: 04-13-2024 End: 88-80-8670Inmivkr (Trueplus Lancets) 33 gauge miscStart: 01-23-2024 End: 33-72-3893Rglsjgg 26 gauge miscStart: 01-21-2024 End: 97-46-8581Iurmxef 26 gauge miscStart: 01-21-2024 End: 63-08-3191Gwpxgys 26 gauge miscStart: 01-21-2024 End: 92-28-6066Enhtipn miscStart: 04-08-2024 End: 35-72-9288Avnwy Sugar Diagnostic (True Metrix Glucose Test Strip) strip Start: 60-80-4762Equqdza 26 gauge miscStart: 41-91-7211Hbqku Sugar Diagnostic (True Metrix Glucose Test Strip) stripStart: 01-21-2024 End: 64-42-6998Dacyk Sugar Diagnostic (True Metrix Glucose Test Strip) strip Start: 01-21-2024 End: 42-92-6378Ueghswk (Thin Lancets) 26 gauge miscStart: 04-13-2024 End: 89-82-2560Skwxbud (Thin Lancets) 26 gauge miscStart: 09-21-2024 End: 03-82-3432Wpvoact (Trueplus Lancets) 33 gauge miscStart: 01-23-2024 End: 27-14-7769Oeirtxu 26 gauge miscStart: 01-21-2024 End: 26-37-5702Leutejo 26 gauge miscStart: 01-21-2024 End: 71-48-3981Aphgusm 26 gauge miscStart: 01-21-2024 End: 20-74-4374Dvargbb 26 gauge miscStart: 04-13-2024 End: 53-36-1790Uwzoxjy miscStart: 04-08-2024 End: 02-31-2501Knvpo Sugar Diagnostic (True Metrix Glucose Test Strip) strip Start: 30-52-2952Koyxghd (Trueplus Lancets) 28 gauge miscStart: 46-51-0835Mtlna Sugar Diagnostic (True Metrix Glucose Test Strip) stripStart: 01-21-2024 End: 14-52-1704Ctfyx Sugar Diagnostic (True Metrix Glucose Test Strip) strip Start: 01-21-2024 End: 70-53-4989Apkmazi (Thin Lancets) 26 gauge miscStart: 04-13-2024 End: 98-81-6611Eycvaxa (Thin Lancets) 26 gauge miscStart: 09-21-2024 End: 23-56-7576Vfqvrrp (Trueplus Lancets) 33 gauge miscStart: 01-23-2024 End: 98-69-3366Vbobawu 26 gauge miscStart: 01-21-2024 End: 43-28-4080Fmffgxe 26 gauge miscStart: 01-21-2024 End: 79-98-1675Bsewqdl 26 gauge miscStart: 01-21-2024 End: 36-48-2283Mknisyo 26 gauge miscStart: 04-13-2024 End: 51-08-2092Djdntgq 26 gauge miscStart: 04-30-2025 End: 73-02-9664Kurhoji miscStart: 04-08-2024 End: 45-17-7062Kvnsm Sugar Diagnostic (True Metrix Glucose Test Strip) strip Start: 73-57-7071Rgrtjir (Trueplus Lancets) 28 gauge miscStart: 79-18-6696Sdtem Sugar Diagnostic (True Metrix Glucose Test Strip) stripStart: 01-21-2024 End: 42-09-9656Gsqgm Sugar Diagnostic (True Metrix Glucose Test Strip) strip Start: 01-21-2024 End: 32-24-8019Yecvqbo (Thin Lancets) 26 gauge miscStart: 04-13-2024 End: 39-71-7950Sfvxgmh (Thin Lancets) 26 gauge miscStart: 09-21-2024 End: 99-10-4121Zstxkzg (Trueplus Lancets) 33 gauge miscStart: 01-23-2024 End: 18-24-4585Grnpzzt 26 gauge miscStart: 01-21-2024 End: 64-76-9832Vymvcyk 26 gauge miscStart: 01-21-2024 End: 99-14-8257Mgnrwxj 26 gauge miscStart: 01-21-2024 End: 25-00-7782Pqtafqy 26 gauge miscStart: 04-13-2024 End: 86-95-5170Xkhizju 26 gauge miscStart: 04-30-2025 End: 08-32-8579Sgfdvwb miscStart: 04-08-2024 End: 04-13-2024 Functional Status AwpdYudhxcgoclRvlpvdKfaucmrw08-29-0971Lcirpfsdvd StatusN/AFisher [facility] CenterWqnvsn86-36-5214Dgheudafhe StatusN/[facility] Clinical Notes 11-23-2021 to 08-19-2025 Note Date & SjwhAkagWxrwiolg89-89-3163 NoteConsultation Note 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 He has predominantly axial neck pain that does refer down to his shoulders. He does have intermittent radicular symptoms that are less consistent than his axial neck pain. He rates his pain in all areas as a 10/10 in severity. He also has pain in multiple joints his bilateral shoulders bilateral knees bilateral ankles predominantly right knee and right ankle. He has been dealing with the symptoms for several years per his report as well as hismother's agrees in the room and who is his guardian. He has been maintained on tramadol for pain relief with some efficacy. He takes Aleve dual action with some efficacy. He has not done any formal physical therapy for these areas. KAM Score: 42% PHQ-2: 4 Patient denies any symptoms of progressively worsening upper/lower extremity weakness, progressively worsening gait abnormality, new onset bowel/bladder incontinence/ urinary retention, or saddle anesthesia. No new or worsening symptoms of fever, chills, night sweats. 14 Point Review of systems negative unless otherwise noted. General: No acute distress. Patient appears well-nourished. HEENT: Head is normocephalic and external ears are normal in appearance. Cardiovascular: No signs of poor perfusion, exam for edema at patient's baseline Pulmonary: Nonlabored breathing, symmetric chest movement. GI: Abdomen nondistended Integumentary: No lesions in examined areas Neurologic: Alert, oriented x3. 5/5 strength grossly in the bilateral upper extremities. Sensation intact to light touch in the bilateral upper extremities. 5/5 strength grossly in the bilateral lower extremities. Sensation intact to light touch in the bilateral lower extremities. MSK/Special Testing: Negative Romy sign bilateral, sterile processing technologist sign bilaterally. Cervical facet loading reproducing axial pain bilaterally. Tenderness palpation hypertonicity in cervical paraspinal musculature. Tenderness palpation bilateral shoulders, bilateral knees bilateral ankles. History, physical examination, and personal review of pertinent imaging results indicate a diagnosis of: - Cervical spondyloarthropathy - Cervical neuritis - Myofascial pain - Polyarthralgia Plan: - We will obtain an x-ray of her cervical spine - We will start formal physical therapy for both his neck as well as polyarthralgia predominantly his right knee and right ankle - Will start baclofen 5 mg 3 times a day to address the myofascial component of his pain symptoms - Consider cervical spine MRI if we see no improvement from the above therapies as we may consider targeted therapies such as cervical epidural steroid injection versus cervical medial branch blocks based on his persistent pain Patient was counseled on the above diagnosis and treatment, all questions were answered and patientagrees to adhere to the plan above. Risk and benefits of appropriate procedures and medications were reviewed as well with patient, who voiced understanding and agreeance. Patient was counseled on appropriate use of opioids if prescribed or renewed today and naloxone was offered to patient if opioids were prescribed or maintained at this visit. If corticosteroid therapy administered for a duration of greater than 12 months, the therapy has been reviewed to ensure it remains efficacious and we have notified the patient's PCP of continued corticosteroid administration. PHQ-2 scoring reviewed with patient and discussed seeking treatment for depression or mood disorder as appropriate. Patient was counseled on smoking cessation and/or continuing to abstain from nicotine/tobacco products as appropriate based on history for greater than 3 minutes if appropriate; as smoking/nicotine can contribute to increased pain overall and decreased wound healing, counseling performed for smoking cessation when appropriate for F17.200 nicotine dependence. KAM reviewed and discussed during encounter. Patient counseled on maintaining a healthy BMI as part of the total treatment of their pain and to reduce stress/strain on joints. Patient invited to return or call with any questions or concerns that arise.[facility] HospitalComment on above:Result Comment: Electronically Signed By: Anupam Monroe DO.montserrat\Date and Time Signed: 08/19/25 13:19 [id number] History of Present illness Narrative* Renetta Engle - 07/20/2025 3:30 PM EDT Images from the original note were not included. Hari Thornton is a 50 y.o. male presents with chief complaint of follow up right total knee arthroplasty, left knee pain and swelling. Neuropathy with tremors. HPI: Jero is here with his mom. 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 He still has pain. He had a right knee replacement that he has noticed some recent swelling and discomfort. He isnot overly active, but does not walk well. He had a prior left knee anterior cruciate ligament recon struction years ago with retained metallic hardware. He is discussing the role of left knee replacement. He has gone through several cortisone and Visco supplementation injections. He is seeing neurology and being treated for tremors and neuropathy. This may provide beneficial. Recently there was no fall, trauma, infection or drainage. They have had some increased discomfort, but he does admit aswell as his mom that he has not been overly active. SUBJECTIVE: MEDICATIONS: Current Outpatient Medications Medication Instructions aspirin 81 mg, Daily Blood Glucose Monitoring Suppl (Dash [place] True Met Air Gluc Meter) w/Device kit 1 puff, As needed Calcium Polycarbophil (FIBER-LAX PO) Fiber-Lax carbidopa-levodopa (Sinemet) 25-100 MG tablet TAKE 1/2 TABLET BY MOUTH THREE TIMES A DAY AT 8AM, NOON, AND 4PM cetirizine (ZyrTEC) 10 MG chewable tablet Daily clonazePAM (KlonoPIN) 1 MG tablet 2 times daily divalproex (DEPAKOTE) 500 mg, 2 times daily docusate sodium (COLACE) 100 mg, 2 times daily DULoxetine (Cymbalta) [address] capsule TAKE 1 CAPSULE BY MOUTH ONCE DAILY IN THE MORNING empagliflozin (Jardiance) 25 MG 1 tablet, Daily glimepiride (AMARYL) 4 mg, Daily before breakfast hyoscyamine (Levsin) 0.125 MG SL tablet DISSOLVE 1 TABLET UNDER THE TONGUE NEEDED BEFORE MEAL(S)AND AT BEDTIME FOR 15 DAYS iloperidone (FANAPT) 6 mg, 2 times daily lisinopril 20 mg, Daily lurasidone (Latuda) 60 MG tablet 1 tablet, Daily metFORMIN, MOD, (Glumetza) 1000 MG 24 hr tablet Take 1 tablet twice a day by oral route. Multiple Vitamin (MULTI VITAMIN DAILY PO) omeprazole (PRILOSEC) 40 mg, Daily before breakfast pravastatin (PRAVACHOL) 20 mg, Daily primidone (Mysoline) 50 MG tablet TAKE 2 TABLETS BY MOUTH EVERY EVENING WITH SUPPER tiZANidine (ZANAFLEX) 4 mg, 3 times daily PRN traMADol (Ultram) 50 MG tablet 1 tablet, 2 times daily PRN traZODone (DESYREL) 100 mg, Nightly True Metrix Blood Glucose Test test strip USE 1 STRIP TO CHECK GLUCOSE THREE TIMES DAILY Trulicity 4.5 mg, Weekly verapamil SR (CALAN SR) 180 mg, Nightly ALLERGIES: Allergies Allergen Reactions Morphine Shortness of breath and Other Other Reaction(s): Vomiting Vancomycin Anaphylaxis and Unknown Penicillins Hives SURGICAL HISTORY: Past Surgical History: Procedure Laterality Date ANTERIOR [...] testicle OTHER SURGICAL HISTORY 2019 RT T-tube OH DRAIN/INJECT LARGE JOINT/BURSA Right knee joint WEEKS WART REMOVAL 06/2020 TONSILLECTOMY TOTAL KNEE ARTHROPLASTY Right 01/22/2022 MTP TYMPANOPLASTY FAMILY HISTORY: Family History Problem Relation Name Age of Onset Diabetes Mother No Known Problems Brother Diabetes Maternal Grandmother Heart disease Maternal Grandfather Cancer Maternal Grandfather Melanoma Other Grandfather Allergies Other Grandfather Skin cancer Other Grandfather Diabetes Other Grandfather Hyperlipidemia Other Grandfather Hypertension Other Grandfather SOCIAL HISTORY: Social History Tobacco Use Smoking status: Never Smokeless tobacco: Never Substance Use Topics Alcohol use: Never Comment: caffeine: >4 cups per day Drug use: Never Depression: Not on file REVIEW OF SYMPTOMS: The review of systems, history and current medications list are all reviewed today. OBJECTIVE: Visit Vitals Ht 5' 6 Wt 179 lb BMI 28.89 kg/m Smoking Status Never BSA 1.94 m Physical Exam On physical exam, the right knee has no effusion. There is no warmth or erythema. No rash or infection. The incision is clear. He gets full extension. He will flex the knee to approximately 112 degrees. His patellofemoral tracking is midline. There is mild weakness of the quad. The left knee has prior ACL incisions. There is trace swelling that is aseptic. He gets near full extension. He flexes to 95 with tight end point. He gets obvious restless legs of which he is bouncing around, dangling from the table. Neuropathic component is present. X-rays, permanently saved to the patient's record, are reviewed AP, lateral and sunrise views in the [place] office taken today show stable position and alignment of the right knee prosthesis. No sign of loosening or infection. The left knee does have moderate to severe degenerative changes that are grade III. There are prior interference screws of the tibia and femur from prior anterior cruciateligament reconstruction in years past. ASSESSMENT AND PLAN: Assessment/Plan Follow up right total knee arthroplasty with stable implant. Left knee posttraumatic arthritis with remote history of ACL with retained hardware. Neuropathy. The nature of the findings were discussed at length. The fact he is not quite bone on bone. He is having pain. He does have a neuropathic component. He does have some psychiatric medication as well. They can discuss this with psychiatry as well as neurology the role of neuropathic medicines such asNeurontin, Lyrica or Cymbalta to see if this would be helpful. We discussed ice, Tylenol and topicals. He is requesting left knee replacement. I instructed him he needs to have further stability withthe right knee. He is a poor surgical candidate with high risk of falls at this point. Physical therapy was prescribed through the [facility] for his right knee per their request. We will see how he responds and they will call in August or September for repeat evaluation and follow up from his neuropathic evaluation and further discussion of left knee replacement at that time. They voice verbal understanding. He is discharged in stable condition. Mom is present. The patient was seen and examined. From the time of check in, nurse triage, vital signs, x-ray, x-ray interpretation, review of systems, comprehensive history and physical exam as well as setting up treatment plan and further management took 35 minutes. Cosigned by Malina Ballard DO at 07/22/2025 2:31 PM EDT documented in this [facility]08-21-2025 Evaluation note* Diagnosis Onset Date Resolution Status Admit Date Aphasia chronicAugust 2024 4:25pmLacunar infarctionchronicAugust 2024 4:25pm Neck painchronicAugust 2024 4:25pmObstructive sleep apneachronicAugu2024 4:25pmTremorchronicAugust 2024 4:25pmWilliams syndromechronic July 15, 2025 4:25pmArthritis of both kneesacuteOctober 2024 10:46am Depression, major, recurrent, mildacuteOctober 2024 10:46amEssential hypertensionacuteOctober 2024 10:46amHypercholesterolemiaacuteOctober 2024 10:46amIrritable bowel syndrome with both constipation and diarrhea acuteOctober 2024 10:46amMedicare annual wellness visit, subsequentacute September 23, 2025 10:46amOpiate analgesic use agreement existsacuteOct2024 10:46amScreening PSA (prostate specific antigen)acuteOctober 2024 10:46amType 2 diabetes mellitus with hyperglycemiaacuteOctober 2024 10:46amObstructive sleep apneachronicOctober 2024 10:46amWilliams syndrome chronicOctober 2024 10:46am [facility] Work Phone: 1(235) 992-569006-06-2025 Evaluation note* Diagnosis Onset Date Resolution Status Admit Date Arthritis of both knees acuteJun2024 10:50amDepression, major, recurrent, mildacuteJune 2024 10:50amEssential hypertensionacuteJun2024 10:50amHypercholesterolemia acuteJun2024 10:50amIrritable bowel syndrome with both constipation and diarrheaacuteJun2024 10:50amOpiate analgesic use agreement existsacute April 30, 2025 10:50amType 2 diabetes mellitus with hyperglycemiaacuteJune 2024 10:50amObstructive sleep apneachronicJune 2024 10:50amWilliams syndromechronicJune 2024 10:50amAphasiachronicAugust 2024 4:25pm Lacunar infarctionchronicAugust 2024 4:25pmObstructive sleep apneachronic [place] 2024 4:25pmTremorchronicAugust 2024 4:25pmWilliams syndrome chronicAugust 2024 4:25pm [facility] Work Phone: 1(157) 883-305502-27-2025 Instructions* Patient Instructions* Ju Hoffmann NP - 01/21/2025 11:00 AM EST - Start Sinemet 25-100 mg - take 1/2 tablet by mouth three times a day (at 8:00 am, 12:00 pm, and 4:00 pm) documented in this encounterLake [facility] Health [id number] Evaluation note* Diagnosis Onset Date Resolution Status Admit Date Acute bronchitis due to other specified organisms acuteJanuary 2024 1:24pmAsthmaacuteJanuary 2024 1:24pmEssential hypertensionacuteJanuary 2024 1:24pmImpacted cerumen of right earacute December 02, 2024 1:24pmType 2 diabetes mellitus with hyperglycemiaacuteJanuary 2024 1:24pmEssential hypertensionacuteJanuary 2024 1:00pmOrthostatic hypotensionacuteJanuary 2024 1:00pmTachycardiaacuteJanuary 2024 1:00pmType 2 diabetes mellitus with hyperglycemiaacuteJanuary 2024 1:00pm DyspneanoneactiveJanuary 2024 1:00pmInfluenza A (H1N1)noneactiveJanuary 2024 1:00pmDepression, major, recurrent, mildacuteFebruary 2024 9:24amEssential hypertensionacuteFebruary 2024 9:24amHypercholesterolemia acuteFebruary 2024 9:24amIrritable bowel syndrome with both constipation and diarrheaacuteFebruary 2024 9:24amObstructive sleep apneaacuteFebruary 2024 9:24amWilliams syndromeacuteFebruary 2024 9:24am [facility] Work Phone: 1(337) 119-430310-24-2024 Evaluation note* Diagnosis Onset Date Resolution Status Admit Date Depression, major, recurrent, mild acuteOctober 2023 10:54amEssential hypertensionacuteOctober 2023 10:54amHypercholesterolemiaacuteOctober 2023 10:54amIrritable bowel syndrome with both constipation and diarrheaacuteOctober 2023 10:54am Medicare annual wellness visit, subsequentacuteOctober 2023 10:54am Obstructive sleep apneaacuteOctober 2023 10:54amScreening PSA (prostate specific antigen)acuteOctober 2023 10:54amWilliams syndromeacuteOctober 2023 10:54amControlled type 2 diabetes mellitus with hyperglycemiadeleted September 17, 2024 10:54amAcute bronchitis due to other specified organismsacute December 02, 2024 1:24pmAsthmaacuteJanuary 2024 1:24pmEssential hypertensionacuteJanuary 2024 1:24pmImpacted cerumen of right earacute December 02, 2024 1:24pmType 2 diabetes mellitus with hyperglycemiaacuteJanuary 2024 1:24pm [facility] Work Phone: 1(544) 398-738208-26-2024 History of Present illness Narrative* Coco Hurtado, - 07/20/2024 3:15 PM EDT Images from [...] DAY IN THE MORNING AND BEFORE BEDTIME [employer] Gluc Meter w/Device kit tiZANidine [...] Chronic pansinusitis Class 1 obesity 03/07/2017 Depression ([facility]) Diabetes mellitus, type 2 ([facility]) Diverticulitis Dysfunction of both eustachian tubes Dysphagia 07/02/2023 Dysuria 07/02/2023 Heartburn 07/02/2023 History of cholesteatoma History of colon polyps 07/02/2023 History of medical problems renal reflux Hypertension ([facility]) Mixed hearing loss of right ear Nasal polyps Post-void dribbling 07/02/2023 Proteinuria 07/02/2023 Subjective tinnitus Testicular swelling 07/02/2023 Urinary frequency 07/02/2023 Urinary reflux 07/02/2023 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 LUE strength deltoid , biceps , triceps , wrist extensors , wrist flexor , and director of consumer affairs strength 5/5. RLE strength illopsoas, quadriceps, tibialis [...] reflex 1+. LLE knee reflex 1+. Coordination: Fpgvrn-st-emkq testing normal aside from tremor. Rapid alternating movements normal with finger tapping. Mild bradykinesia with pronation/supinationof the bilateral hands. Gait: Slightly stooped posture with decreased arm swing bilaterally. Review and summary of old records: [place] head [place] on 07/02/24 at [facility] [place]: no evidence of occlusion, aneurysm or dissection. No evidence of intracranial stenosis. LDL: 76 B12 and thyroid stimulating hormone on 06/11/2024: Normal MRI of the brain w and w/o contrast at [facility] [place]15/24: No acute intracranial pathology. There is aremote lacunar infarct in the right deep ngo nuclei. No abnormal postcontrast enhancement. Mild chronic age-related neurodegenerative changes. There is mild diffuse cortical atrophy. There are a fewperiventricular and subcortical white matter T2 and FLAIR hyperintense foci suggesting mild chronicmicrovascular ischemic change. Labs at [facility] on 10/03/20: generally unremarkable with Depakene level 72.2 (WNL) MRI of the orbits, face, and neck w and w/o contrast at [facility] on 11/17/20: Old right basal ganglia [...] Follow up with psychiatry (he sees Dr. Patel) and counselor for management of psychiatric disorder [...] new or worsening symptoms. documented in this encounterLake [facility] [id number] History of Present illness Narrative* uJ Paulino RN - 05/07/2024 10:03 AM EDT [...] a responsible adult. Yes [facility] Discharge instructions* Discharge Instructions* Ju Paulino [...] for 14 days. [facility] History of Present illness Narrative* Cordelia [...] Kumar RN - 05/01/2024 10:00 AM EDT [facility] Preadmission Testing Name: Hari Thornton : 1975 Patient (home) [phone] (work) Procedure Right foot matriectomies Date of [...] in PAT? Yes documented in [facility] Evaluation note* Encounter Date Diagnosis Assessment Notes Treatment Notes Treatment Clinical Notes Oct, Irritable bowel syndrome with di arrhea (ICD-10 - K58.0) [facility] Other 10-27-2023 Evaluation note* Encounter Date Diagnosis [...] reviewed and amended by provider signed below. Aug,Type 2 diabetes mellitus with hyperglycemia, without long-term current use of insulin (ICD-10 - E11.65)This patient is following a comprehensive diabetic treatment [...] Microalbumin, Dilated eye exam and Foot exam Aug,rimary hypertension (ICD-10 - I10)This patient is instructed to consume a healthy, low-fat, low-salt diet. They are also encouraged to continue exercise to achieve/maintain a normal BMI. Aug,Hyperlipidemia, mixed (ICD-10 - E78.2)Instructed on diet and exercise with continued statin therapy.Discussed the beneficial effects of lo wering cholesterol in reducing the risk for cerebrovascular and cardiovascular disease. Aug,Obstructive sleep apnea (ICD-10 - G47.33)This patient is aware of the benefits associated with KOKI: With continued use, the patient reduces the risk for NV, CVA, HTN, cardiac dysrhythmias and sudden cardiac deaths.The patient is also aware of the association between KOKI and morning headaches, daytime somnolence, fatigue and obesity. Noncompliance Aug,Irritable bowel syndrome with both constipation and diarrhea (ICD-10 - K58.2)High fiber diet, push fluids. UTD w/ CRC screening Aug,AD (generalized anxiety disorder) (ICD-10 - F41.1)Healthy diet, keep active, exercise Instructed to take medication as prescribed f/u Psych Aug,Mild episode of recurrent major depressive disorder (ICD-10 - F33.0) Healthy diet and keep active. f/u Psych Aug,High risk medication use (ICD-10 - Z79.899)Check labs: CBC Aug,Fatigue, unspecified type (ICD-10 - R53.83)Check labs: CBC, TSH Aug,Screening PSA (prostate specific antigen) (ICD-10 - Z12.5)Yearly PSA [facility] Other 10-12-2023 Evaluation note* Encounter Date Diagnosis Assessment Notes Treatment Notes Treatment Clinical Notes Aug, Hyperlipidemia, mixed (ICD-10 - E78.2) Aug,Essential hypertension (ICD-10 - I10) [facility] Other 10-10-2023 Evaluation note* Encounter Date Diagnosis Assessment Notes Treatment Notes Treatment Clinical Notes Aug, Essential hypertension (ICD-10 - I10) Aug,Hyperlipidemia, mixed (ICD-10 - E78.2) [facility] Other 08-15-2023 Evaluation note* Encounter Date Diagnosis Assessment Notes Treatment Notes Treatment Clinical Notes Jun, Type 2 diabetes keyla itus with hyperglycemia, without long-term current use of insulin (ICD-10 - E11.65) [facility] Other 04-25-2023 Evaluation note* Encounter Date Diagnosis Assessment Notes Treatment Notes Treatment Clinical Notes Feb, Type 2 diabetes keyla itus with hyperglycemia, without long-term current use of insulin (ICD-10 - E11.65) [facility] Other 04-10-2023 Evaluation note* Encounter Date Diagnosis Assessment Notes Treatment Notes Treatment Clinical Notes Feb, Essential hypertension (ICD-10 - I10) This patient is instructed to consume a healthy, low-fat, low-salt diet. They are also encouraged to continue exercise to achieve/maintain a normal BMI. Feb,Type 2 diabetes mellitus with hyperglycemia, without long-term current use of insulin (ICD-10 - E11.65)This patient is following a comprehensive diabetic treatment plan. They are checking their feet daily for calluses and nonhealing ulcers. They are being seen for yearly dilated eye examinations. Goals: SBP less than 130, LDL less than 100, FBS less than 140, AC and A1C less than 7%. They are checking their BS daily, will which are reviewed at the office visit. Feb,Hyperlipidemia, mixed (ICD-10 - E78.2) Feb,Obstructive sleep apnea (ICD-10 - G47.33)This patient is aware of the benefits associated with KKOI: With continued use, the patient reduces the risk for NV, CVA, HTN, cardiac dysrhythmias and sudden cardiac deaths.The patient is also aware of the association between KOKI and morning headaches, daytime somnolence, fatigue and obesity, whichalso has been improved with continued use.The patient is compliant with treatment, wearing the equipment every night for greater than 4 hours.The patient is instructed to continue use of the CPAP forOSA treatment. Compliance questionable Feb,Right flank pain (ICD-10 - R10.9)Locates at base of ribs. Likely MSK in origin: heat/ice and lidocaine patches US liver and kidney to r/o hepatic mass, renal mass, renal stone Feb,Intermittent asthma without complication (ICD-10 - J45.20) Feb,AD (generalized anxiety disorder) (ICD-10 - F41.1)Healthy diet, keep active, f/u Psych Feb,MCI (mild cognitive impairment) (ICD-10 - G31.84)Family to assist w/ care. Feb,Rosacea (ICD-10 - L71.9)Avoid sun, spicy foods. Begin Metrocream f/u Dermatology [facility] Other 03-28-2023 Evaluation note* Encounter Date Diagnosis Assessment Notes Treatment Notes Treatment Clinical Notes Jan, Essential hypertension (ICD-10 - I10) Jan,Hyperlipidemia, mixed (ICD-10 - E78.2) [facility] Other 03-28-2023 Evaluation note* Encounter Date Diagnosis Assessment Notes Treatment Notes Treatment Clinical Notes Jan, Essential hypertension (ICD-10 - I10) [facility] Other 2023 Evaluation note* Encounter Date Diagnosis Assessment Notes Treatment Notes Treatment Clinical Notes Jan, Essential hypertension (ICD-10 - I10) Jan,Hyperlipidemia, mixed (ICD-10 - E78.2) [facility] Other 03-17-2023 Evaluation note* Encounter Date Diagnosis Assessment Notes Treatment Notes Treatment Clinical Notes Jan, Chronic fatigue (ICD-10 - R53.82 ) [facility] Other 03-17-2023 Evaluation note* Encounter Date Diagnosis [...] at the office visit. A1C: due ] Jan,Type 2 diabetes mellitus with hyperglycemia, without long-term current use of insulin (ICD-10 - E11.65)This patient is following a comprehensive diabetic treatment [...] of GLP -1 due to adverse effects. Jan,Intermittent palpitations (ICD-10 - R00.2)Avoid stimulants, hydrate, exercise. Jan,Hyperlipidemia, mixed (ICD-10 - E78.2)Diet and exercise with continued statin therapy. Jan,MCI (mild cognitive impairment) (ICD-10 - G31.84)Parents assisting w/ IADL, ADL. Requires 24 hours care Jan,Obstructive sleep apnea (ICD-10 - G47.33)Compliance poor, may be contributing to depression and fatigue. Will discuss advantages w/ chronic symptoms of fatigue, depression etc as well as rat exterminator benefitw/ reducing risk for AF, CVA, NV Jan,Moderate episode of recurrent major depressive disorder (ICD-10 - F33.1)Healthy diet, increase activity, consistent sleep routine. f/u Psych Jan,iarrhea, unspecified type (ICD-10 - R19.7)Likely diet and medication related. Await labs to r/o hepatic, renal involvement. May need to taper GLP-1 Avoid milk, juices and sauce. Increase yogurt, bananas and cheese [facility] Other 02-08-2023 Hospital Discharge instructions Patient Education 01/02/2023 12:59:37 Endoscopy, Care After Procedure [facility]) Endoscopy Care After Procedure Please read the instructions outlined below and refer to this sheet in the next few weeks. These discharge instructions provide you with general information on [facility] Your doctor may also give you [...] blood. Document Released: 06/25/2005 Document Re-Released: 05/05/2007 [employer] Patient Information Testin. 01/02/2023 12:59:37 Esophageal Dilatation Esophageal Dilatation Esophageal [...] including vitamins, herbs, eye drops, creams, and unjb-omt-aloetqf medicines. Any problems you or family members [...] home. Follow these instructions at home: Take fpwt-eta-gmibsby and prescription medicines only as told by [...] 01/02/2007 Document Revised: 10/24/2018 Document Reviewed: 09/16/2018 [employer] Patient Education 2020 [employer] 01/02/2023 12:59:37 Colonoscopy, Care After Surgery Salam [...] worse throughout the day. 01/02/2023 12:59:37 Diverticulitis, Khez-dx-Ctux Diverticulitis Diverticulitis is when small pockets in your large intestine (colon) get infected or swollen. This causes stomach pain and watery poop (diarrhea). These pouches are called diverticula. They form in people who have a condition called diverticulosis. Follow these instructions at home: Medicines Take vobi-kqk-ojqggjf and prescription medicines only as told by [...] 04/29/2009 Document Revised: 10/24/2018 Document Reviewed: 11/28/2017 [employer] Patient Education 2020 [employer] 01/02/2023 12:59:37 Colon Polyps Colon Polyps Polyps [...] 08/07/2005 Document Revised: 02/26/2019 Document Reviewed: 02/26/2019 [employer] Patient Education 2020 [employer] 01/02/2023 12:59:37 Hemorrhoids, Yuxu-lt-Lvpd Hemorrhoids Hemorrhoids are swollen veins that may [...] 3 times a day. General instructions Take rnrs-ppz-jkxhoph and prescription medicines only as told by [...] 08/20/2009 Document Revised: 11/19/2019 Document Reviewed: 04/02/2019 [employer] Patient Education 2020 [employer] Follow Up Care 11/01/2022 13:05:57 With:Sylvester FITZPATRICK Address: [address] [place] [address]. [address] [place] [address] [facility] ([facility]) When: Unknown Comments:Call for any problems. Office will call for follow up appt [facility]02-08-2023 Evaluation + Plan noteExtracted from: Title:ANES Post-operative NoteAuthor:Keyon Ramey MDDate:01/02/23 Plan Transfer/Discharge: Transfer/Discharge Discharge when meets criteria ( To home ). Extracted from:Title:ANES Pre-operative NoteAuthor:Keyon Ramey MDDate: 01/02/23 Plan [place] [employer]esthesi[employer] (ASA) physical status classification: Class III. Anesthetic Preoperative Plan: Anesthesia Monitored anethesia care.[facility]12-08-2022 Hospital Discharge instructions Patient Education 11/01/2022 [...] including vitamins, herbs, eye drops, creams, and nblm-ylu-yueyadw medicines. Any problems you or family members [...] 11/08/2001 Document Revised: 09/03/2018 Document Reviewed: 01/22/2017 [employer] Patient Education 2020 [employer] Follow Up Care 09/28/2022 10:36:04 With:Sue Qureshi CNP Address: When:1 to 2 weeks Comments:Following colonoscopy. [facility] 12-30-2021 History of Present illness Narrative* Gabriella Grimaldo RN - 11/23/2021 9:00 AM EST Anesthesia to review pt's EKG pre op * Gabriella Grimaldo RN - 11/23/2021 9:00 AM EST [facility] Preadmission Testing Name: Hari Thornton : 1975 Patient (home) [phone] (work) Procedure AKUA HALLUX MATRIECTOMY Date of [...] Yes Surgery Location Verified: Yes Patient Language: STATELESS Medical History Reviewed: Yes NPO Status Reinforced: Yes Ride and Caregiver Arranged: Yes Ride Caregiver Provider: MOM-[facility] Pre-AdmissionTesting Checklist Patient has been to this health system before?: Yes Does patient refuse blood?: No Healthcare Directive: No, patient does not have an advance directive for healthcare treatment On Line Csr needed: No Patient can read and write?: [...] instructions reviewed with patient. documented in [facility] [employer] [employer] Phone: evaluation + Plan note No data available for this section [facility] Future Appointments Appointment Date:01/02/2023 12:40:00 PM Scheduled Provider: Location:[facility] Appointment Type:Surgery FT Future Scheduled Tests Laboratory* Fecal WBC Lactoferrin 11/01/22 * Giardia lamblia, Direct Detection EIA 11/01/22 * O & P Exam, Routine 11/01/22 * Clostridium Difficile PCR 11/01/22 * Enteric Panel by PCR 11/01/22 [facility] Evaluation note* Diagnosis Suicidal ideation- Primary Homicidal ideations Homicidal ideation documented in this encounter [employer] Phone: [email or web address] note* Diagnosis Acute upper respiratory infection- Primary Acute upper respiratory infections of unspecified site documented in this encounter [employer] Phone: [email or web address] noteNo [employer] Other Evaluation note* Diagnosis Onset Date Resolution Status Constipation due to slow transit acuteControlled type 2 diabetes mellitus with hyperglycemiaacuteDepression, major, recurrent, mildacuteEssential hypertensionacuteObstructive sleep apnea acuteSeborrheic dermatitis of scalpacuteWilliams syndromeacuteCellulitis of finger of right handacute [facility] Work Phone: Evaluation note* Diagnosis Onset Date Resolution Status Cellulitis of finger of right hand acute [facility] Work Phone: Evaluation note* Diagnosis Onset Date Resolution Status Constipation due to slow transit acuteControlled type 2 diabetes mellitus with hyperglycemiaacuteDepression, major, recurrent, mildacuteEssential hypertensionacuteObstructive sleep apnea acuteWilliams syndromeacute [facility] Work Phone: Evaluation note* Diagnosis Onset Date Resolution Status Controlled type 2 diabetes mellitus with hyperglycemia acuteDepression, major, recurrent, mildacuteDiarrheaacuteEssential hypertension acuteObstructive sleep apneaacuteWilliams syndromeacute [facility] Work Phone: Evaluation note* Diagnosis Onset Date Resolution Status Controlled type 2 diabetes mellitus with hyperglycemia acuteDepression, major, recurrent, mildacuteDiarrheaacuteEssential hypertension acuteObstructive sleep apneaacuteWilliams syndromeacuteControlled type 2 diabetes mellitus with hyperglycemiaacuteDepression, major, recurrent, mildacute Essential hypertensionacuteHypercholesterolemiaacuteIrritable bowel syndrome with both constipation and diarrheaacuteMedicare annual wellness visit, subsequentacuteObstructive sleep apneaacuteScreening PSA (prostate specific antigen)acuteWilliams syndromeacute [facility] Work Phone: Evaluation note* Diagnosis Onset Date Resolution Status Controlled type 2 diabetes mellitus with hyperglycemia acuteDepression, major, recurrent, mildacuteEssential hypertensionacute HypercholesterolemiaacuteIrritable bowel syndrome with both constipation and diarrheaacuteMedicare annual wellness visit, subsequentacuteObstructive sleep apneaacuteScreening PSA (prostate specific antigen)acuteWilliams syndromeacute [facility] Work Phone: Evaluation note* Diagnosis Tremor Abnormal involuntary movements [facility]* Diagnosis Lacunar infarction (CMS/HCC)- Primary Unspecified cerebral artery occlusion with cerebral infarction Aphasia Tremor Abnormal involuntary movements 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, so described Psychiatric disorder Unspecified nonpsychotic mental disorder KOKI (obstructive sleep apnea) Obstructive sleep apnea (adult) (pediatric) Generalized weakness documented in this [facility]* Diagnosis Onset Date Resolution Status Admit Date Arthritis of both knees acuteJune 2024 10:50amDepression, major, recurrent, mildacuteJune 2024 10:50amEssential hypertensionacuteJune 2024 10:50amHypercholesterolemia acuteJune 2024 10:50amIrritable bowel syndrome with both constipation and diarrheaacuteJune 2024 10:50amObstructive sleep apneaacuteJune 2024 10:50amOpiate analgesic use agreement existsacuteJune 2024 10:50amType 2 diabetes mellitus with hyperglycemiaacuteJune 2024 10:50amWilliams syndrome acuteJune 2024 10:50am [facility] Work Phone: Evaluation note* Diagnosis S/P total knee replacement, right- Primary documented in this encounter [facility] HealthcareHistory general Narrative - Reported* Type Description Date Medical History Colon polyp Medical HistoryEpisodic tension-type headache, not intractableMedical History Sensorineural hearing lossMedical HistoryHistory of total right knee replacement Medical HistoryHip painMedical HistoryArthritis of knee, leftMedical History Depression, major, recurrent, mildMedical HistoryArthritis of both hipsMedical HistoryEssential tremorMedical HistoryGAD (generalized anxiety disorder)Medical HistoryHydrocele, leftMedical HistoryArthritis of both kneesMedical History DIVERTICULOSIS OF RECTOSIGMOIDMedical HistoryObstructive sleep apneaMedical HistoryWilliams syndromeMedical HistoryIntermittent asthma without complication Medical HistoryObesity (BMI 30-39.9)Medical HistoryMCI (mild cognitive impairment)Medical HistoryHyperlipidemia, mixedMedical HistoryBenign localized hyperplasia of prostate with urinary retentionMedical HistoryEssential hypertensionMedical HistorySeborrheic dermatitis of scalpMedical HistoryPrimary insomniaMedical HistoryIntermittent palpitationsMedical HistoryControlled type 2 diabetes mellitus with hyperglycemia, without long-term current use of insulin Surgical Kudgzmmdwgsetshnpa5374,2023Surgical HistoryEGD2/2022Surgical History LEFT [id number] HistoryARTHROSCOPY OF [id number],2003,2004Surgical History EXCISION [id number] HistoryLEFT KNEE [id number] History ARTHROSCOPY ACL [id number] HistoryRIGHT KNEE [id number] HistoryRIGHT [id number] HistoryB/L INGUINAL HERNIASurgical HistoryLEFT MYRINGOTOMY, T [id number] HistoryRECURRENT INGUINAL HERNIA Surgical HistoryRIGHT TOTAL KNEE ARTHROPLASTYSurgical HistoryHYDROCELECTOMY, [id number] HistoryMYRINGOTOMY OF LEFT TYMPANIC MEMBRANE WITH LOCAL ANESTHESIAHospitalization HistorySEE SURGICAL HX [facility] Other History general Narrative - Reported* Type Description Date Medical History Colon polyp Medical HistoryEpisodic tension-type headache, not intractableMedical History Sensorineural hearing lossMedical HistoryHistory of total right knee replacement Medical HistoryHip painMedical HistoryArthritis of knee, leftMedical History Depression, major, recurrent, mildMedical HistoryArthritis of both hipsMedical HistoryEssential tremorMedical HistoryGAD (generalized anxiety disorder)Medical HistoryHydrocele, leftMedical HistoryArthritis of both kneesMedical History DIVERTICULOSIS OF RECTOSIGMOIDMedical HistoryObstructive sleep apneaMedical HistoryWilliams syndromeMedical HistoryIntermittent asthma without complication Medical HistoryObesity (BMI 30-39.9)Medical HistoryMCI (mild cognitive impairment)Medical HistoryHyperlipidemia, mixedMedical HistoryBenign localized hyperplasia of prostate with urinary retentionMedical HistoryEssential hypertensionMedical HistorySeborrheic dermatitis of scalpMedical HistoryPrimary insomniaMedical HistoryIntermittent palpitationsMedical HistoryControlled type 2 diabetes mellitus with hyperglycemia, without long-term current use of insulin Surgical Nflnomlikgdntcjrow3303,2023Surgical HistoryEGD2/2022Surgical History LEFT [id number] HistoryARTHROSCOPY OF CHZW4504,2003,2004Surgical History EXCISION [id number] HistoryLEFT KNEE [id number] History ARTHROSCOPY ACL KOCAXSGHOUTMWP6198Khsbluda HistoryRIGHT KNEE [id number] HistoryRIGHT EIKHOBEGSVZO7212Uiglgtgm HistoryB/L INGUINAL HERNIASurgical HistoryLEFT MYRINGOTOMY, T [id number] HistoryRECURRENT INGUINAL HERNIA Surgical HistoryRIGHT TOTAL KNEE [id number] HistoryHYDROCELECTOMY, [id number] HistoryMYRINGOTOMY OF LEFT TYMPANIC MEMBRANE WITH LOCAL ANESTHESIAHospitalization HistorySEE SURGICAL HX [facility] Other Hospital Discharge instructions* Attachments The following attachments cannot be sent through Care Everywhere. * URI (Upper Respiratory Infection): Viral (Chadian) * Sinus Rinse (Chadian) documented [facility] Tapactive Phone: Hospital Discharge instructions No data available for this section [facility] No data available for this section [facility] HospitalReason for referral (narrative)No reason for referral information availableLutheran Hospital Work Phone: Reason for visit Narrative* Auth/CertSpecialty Diagnoses / ProceduresReferred By ContactReferred To Contact Diagnoses Ingrown toenail of both feet CHRONIC INGROWNS Procedures [place] REMOVAL OF NAIL BED NAILBED EXCISION MATRIXECTOMY-HALLUX Kashmir Kelly, DPM [address] [place] [address] [address] [place] [address] Referral IDStatusReasonStart DateExpiration DateVisits RequestedVisits [id number] [facility] Phone: Summary Purpose Family History No Family History Records Found Relationship Condition Age at Onset Recorded Date/T jordyn Not Specified Diabetes mellitus Unknown Relationship Condition Age at Onset Recorded Date/T jordyn mother Diabetes mellitus Unknown Advance Directives No Advanced Directives Records FoundDocuments on File TypeDate RecordedPatient RepresentativeExplanationACP-Guardianship05/22/2022 1:36 PMDate ActivatedDate InactivatedComments05/17/2022 10:29 AM05/18/2022 5:08 PMType Date RecordedPatient RepresentativeExplanationACP-Advance DirectiveACP-Power of AttorneyTypeDate RecordedPatient RepresentativeExplanationACP-Advance Directive ACP-Power of AttorneyCode StatusDate ActivatedDate InactivatedCommentsFull Code 05/17/2022 10:29 AM05/18/2022 5:08 PM Advance Directive Response Recorded Date/ Time Advance Directives No April 29 6:50pm Code StatusDate ActivatedDate InactivatedCommentsFull Code05/17/2022 10:29 AM 05/18/2022 5:08 PMTypeDate RecordedPatient RepresentativeExplanation ACP-Guardianship05/22/2022 1:36 PMCode StatusDate ActivatedDate Inactivated CommentsFull Code05/17/2022 10:29 AM05/18/2022 5:08 PM Advance Directive Response Recorded Date/ Time Advance Directives No April 29 5:50pm Assessments Diagnosis Nonintractable headache, unspecified chronicity [...] Grimaldo RN - 11/16/2020 8:00 AM EST [facility] Preadmission Testing Name: Hari Thornton : 1975 [...] Yes Surgery Location Verified: Yes Patient Language: STATELESS Medical History Reviewed: Yes NPO Status Reinforced: Yes Ride and Caregiver Arranged: Yes Ride Caregiver Provider: TEMO Pre-AdmissionTesting Checklist Patient has been to this health system before?: Yes Does patient refuse blood?: No Healthcare Directive: No, patient does not have an advance directive for healthcare treatment On Line Csr needed: No Patient can read and write?: Yes Axrb-tx-Fqyo: Does the patient want to have any [...] this encounter Discharge Instructions * Instructions* Hilary Schumcaher RN - 11/24/2020 SAME DAY SURGERY DISCHARGE [...] question or concerns please call the office ([phone]). If after hours Dr. Kelly can be reached at [phone] (home) or [phone] (cell phone). documented in this encounter Chief Complaint and Reason for Visit Chief Complaint Amb Documentation 4 MONTH CHECK UP hurt finger, red, swollen,Reason for VisitConstipation due to slow transit Controlled type 2 diabetes mellitus with hyperglycemia Depression, major, recurrent, mild Essential hypertension Obstructive sleep apnea Seborrheic dermatitis of scalp Stanley syndrome Cellulitis of finger of right hand Chief Complaint hurt finger, red, sw ollen, Amb Documentation r25.1 r47.01Reason for VisitCellulitis of finger of right hand Chief Complaint Amb Documentation r25.1 r47.01 6 month f/uReason for VisitConstipation due to slow transit Controlled type 2 diabetes mellitus with hyperglycemia Depression, major, recurrent, mild Essential hypertension Obstructive sleep apnea Stanley syndrome Chief Complaint Amb Documentation r25.1 r47.01 6 month f/u I63.81Reason for VisitControlled type 2 diabetes mellitus with hyperglycemia Depression, major, recurrent, mild Diarrhea Essential hypertension Obstructive sleep apnea Stanley syndrome Chief Complaint 6 month f/u I63.81 3 month f/uReason for VisitControlled type 2 diabetes mellitus with hyperglycemia Depression, major, recurrent, mild Diarrhea Essential hypertension Obstructive sleep apnea Stanley syndrome Controlled type 2 diabetes mellitus with hyperglycemia Depression, major, recurrent, mild Essential hypertension Hypercholesterolemia Irritable bowel syndrome with both constipation and diarrhea Medicare annual wellness visit, subsequent Obstructive sleep apnea Screening PSA (prostate specific antigen) Stanley syndrome Chief Complaint I63.81 3 month f/u flu shotReason for VisitControlled type 2 diabetes mellitus with hyperglycemia Depression, major, recurrent, mild Essential hypertension Hypercholesterolemia Irritable bowel syndrome with both constipation and diarrhea Medicare annual wellness visit, subsequent Obstructive sleep apnea Screening PSA (prostate specific antigen) Stanley syndrome Chief Complaint Admit Date 3 month f/u September 17, 2024 1 0:54am flu shot September 25, 2024 1 0:42am ER f/u URI not feeling better November 1:24pm Reason for Visit Admit Date Depression, major, recurrent, mild Octob er 2023 10:54am Essential hypertension September 17 10:54am Hypercholesterolemia September 17, 2024 10:54am Irritable bowel syndrome wit h both constipation and diarrhea September 17, 2024 10:54am Medicare annual wellness visit, subseque nt September 17, 2024 10:54am Obstructive sleep apnea September 17 10:54am Screening PSA (prostate specific antigen ) [...] 1:24pm cough/SOB December 11, 2024 1 :00pm Chief Complaint Admit Date ER f/u URI not feeling better November 1:24pm cough/SOB December 11, 2024 1 :00pm Amb Documentation December 14, 2024 1 0:59am 4 month f/u January 21, 2025 9:24am Reason for Visit Admit Date Acute bronchitis due to other specified organisms December 02, 2024 1:24pm Asthma December 02, 2024 1: 24pm Essential hypertension December 02, 2024 1:24pm Impacted cerumen of right ear November 1:24pm Type 2 diabetes mellitus with hyperglyce jesus alberto December 02, 2024 1:24pm Essential hypertension December 11 1:00pm Orthostatic hypotension December 11 1:00pm Tachycardia December 11, 2024 1 :00pm Type 2 diabetes mellitus with hyperglyce jesus alberto December 11, 2024 1:00pm Dyspnea December 11, 2024 1 :00pm Influenza A (H1N1) December 11, 2024 1 :00pm Depression, major, recurrent, mild Febru casey 2024 9:24am Essential hypertension January 21 9:24am Hypercholesterolemia January 21, 2025 9:24am Irritable bowel syndrome wit h both constipation and diarrhea January 21, 2025 9:24am Obstructive sleep apnea January 21, 2 025 9:24am Stanley syndrome January 21, 2025 9:24am Chief Complaint Admit Date 3 month f/u April 30, 2025 10:50 am Reason for Visit Admit Date Arthritis of both knees April 30, 2025 1 0:50am Depression, major, recurrent, mild April 30, 2025 10:50am Essential hypertension April 30, 2025 10 :50am Hypercholesterolemia April 30, 2025 10:5 0am Irritable bowel syndrome with both const ipation and diarrhea April 30, 2025 10:50am Obstructive sleep apnea April 30, 2025 1 0:50am Opiate analgesic use agreement exists [facility] 2024 10:50am Type 2 diabetes mellitus with hyperglyce jesus alberto April 30, 2025 10:50am Stanley syndrome April 30, 2025 10:50 am Chief Complaint Admit Date 3 month f/u April 30, 2025 10:50 am Amb Documentation June 14, 2025 2:14 pm Amb Documentation June 14, 2025 2:52 pm Reason for Visit Admit Date Arthritis of both knees April 30, 2025 1 0:50am Depression, major, recurrent, mild April 30, 2025 10:50am Essential hypertension April 30, 2025 10 :50am Hypercholesterolemia April 30, 2025 10:5 0am Irritable bowel syndrome with both const ipation and diarrhea April 30, 2025 10:50am Opiate analgesic use agreement exists [facility] 2024 10:50am Type 2 diabetes mellitus with hyperglyce jesus alberto April 30, 2025 10:50am Obstructive sleep apnea April 30, 2025 1 0:50am Stanley syndrome April 30, 2025 10:50 am Aphasia July 15, 2025 4: 25pm Lacunar infarction July 15, 2025 4: 25pm Obstructive sleep apnea July 15 4:25pm Tremor July 15, 2025 4: 25pm Stanley syndrome July 15, 2025 4: 25pm Chief Complaint Admit Date Wellness September 23, 2025 1 0:46am Reason for Visit Admit Date Aphasia July 15, 2025 4: 25pm Lacunar infarction July 15, 2025 4: 25pm Neck pain July 15, 2025 4: 25pm Obstructive sleep apnea July 15 4:25pm Tremor July 15, 2025 4: 25pm Stanley syndrome July 15, 2025 4: 25pm Arthritis of both knees September 23 10:46am Depression, major, recurrent, mild Octob er 2024 10:46am Essential hypertension September 23 10:46am Hypercholesterolemia September 23, 2025 10:46am Irritable bowel syndrome wit h both constipation and diarrhea September 23, 2025 10:46am Medicare annual wellness visit, marjoriee nt September 23, 2025 10:46am Opiate analgesic use agreement exists [facility] 2024 10:46am Screening PSA (prostate specific antigen ) September 23, 2025 10:46am Type 2 diabetes mellitus with hyperglyce jesus alberto September 23, 2025 10:46am Obstructive sleep apnea September 23 10:46am Stanley syndrome September 23, 2025 1 0:46am Additional Source Comments (unrecognized sect ion and content) No Status Records FoundNo Status Records FoundNo Status Records FoundNo Status Records FoundNo Status Records FoundNo Status Records FoundNo Status Records Found INFORMATION SOURCE (unrecogn ized section and content) DATE CREATED AUTHOR 05/15/2018 [facility] DATE CREATED AUTHOR AUTHOR'S ORGANIZ ATION 05/19/2022 [facility] DATE CREATED AUTHOR AUTHOR'S ORGANIZ ATION 04/10/2023 [facility] DATE CREATED AUTHOR AUTHOR'S ORGANIZ ATION 07/09/2024 [facility] DATE CREATED AUTHOR AUTHOR'S ORGANIZ ATION 12/08/2024 [facility] DATE CREATED AUTHOR AUTHOR'S ORGANIZ ATION 07/22/2025 [facility] DATE CREATED AUTHOR AUTHOR'S ORGANIZ ATION 10/01/2025 [facility] Reason for Visit (unrecogniz ed section and content) StatusReasonSpecialtyDiagnoses / ProceduresReferred By ContactReferred To ContactClosedRadiology Diagnoses Alternating exotropia Diplopia Myopathy of extraocular muscles, bilateral Procedures MRI-BRAIN WO & W CONTRAST [id number] MRI BRAIN WWO Bipin Quintana Y, DO [address] [place] [address] [facility] M[facility] [address] [place] [address] StatusReasonSpecialtyDiagnoses / ProceduresReferred By ContactReferred To Contact Diagnoses Skin lesion SKIN LESION LEFT PLANTAR FOOT Procedures [place] EXC TUMOR SOFT TISSUE FOOT/TOE SUBFASC <1.5CM FOOT LESION BIOPSY EXCISION, PLANTAR Kashmir Kelly, DPM [address] [place] [address] [facility] ReasonCommentsSuicidalPt reports thoughts of suicide after fight with girlfriend todayReasonCommentsConcern For COVID-19Pt was exposed to Covid and has recently had cough and headache with episodes of tachycardiaSpecialtyDiagnoses / ProceduresReferred By ContactReferred To Contact Diagnoses Onychocryptosis Onychocryptosis [L60.0] Procedures [place] EXCISION NAIL MATRIX PERMANENT REMOVAL NAILBED EXCISION MATRIXECTOMY- DIGITS 1,4,5 Kashmir Kelly, DPM [address] [place] [address] [facility] [address] [place] [address] Referral IDStatusReasonStart DateExpiration DateVisits RequestedVisits [id number], GenWord- finding difficultyReasonCommentsFollow-upR TKA 01/22/22 Care Teams (unrecognized sec tion and content) Team Status: Active Member Role Status Dates Narayan Gagnon , DO Primary Care Provider Active Team Status: Inactive Member Role Status Dates Narayan Gagnon DO Primary Care Provide r, Attending Provider Active Start: April 30, 2025 End: April 30, 2025 Team Status: Active Member Role Status Dates Narayan Gagnon DO Primary Care Provide r, Attending Provider Active Start: November 24, 2024 Team Status: Active Member Role Status Dates Narayan Gagnon DO Primary Care Provide r, Attending Provider Active Start: November 25, 2024 Team Status: Inactive Member Role Status Dates Narayan Gagnon DO Primary Care Provide r, Attending Provider Active Start: December 02, 2024 End: December 02, 2024 Team Status: Inactive Member Role Status Dates Narayan Gagnon DO Primary Care Provide r, Attending Provider Active Start: December 11, 2024 End: December 11, 2024 Team Status: Active Member Role Status Dates Narayan Gagnon DO Primary Care Provide r, Attending Provider Active Start: December 12, 2024 Team Status: Active Member Role Status Dates Narayan Gagnon DO Primary Care Provider Active Start: December 14, 2024 Debbie Warren CMAAtttierra ProviderActiveStart: December 14, 2024 Team Status: Active Member Role Status Dates Narayan Gagnon DO Primary Care Provide r, Attending Provider Active Start: January 15, 2025 Team Status: Inactive Member Role Status Dates Narayan Gagnon DO Primary Care Provide r, Attending Provider Active Start: January 21, 2025 End: January 21, 2025 Team Status: Inactive Member Role Status Dates Narayan Gagnon DO Primary Care Provide r, Attending Provider Active Start: June 24, 2024 End: June 24, 2024 Team Status: Inactive Member Role Status Dates Narayan Gagnon DO Primary Care Provider Active Start: July 02, 2024 End: July 02, 2024Ju Hoffmann [id number] ProviderActiveStart: July 02, 2024 End: July 02, 2024 [...] Care Provider Active Start: April 13, 2024 Felecia Nicolas RMAAttenkirsten ProviderActiveStart: April 13, 2024 Team Status: Inactive Member Role Status Dates Narayan Gagnon DO Primary Care Provider Active Start: May 15, 2024 End: May 15, 2024Ju Hoffmann YIQG-DUW-NPfvrhnfhj ProviderActiveStart: May 15, 2024 End: May 15, 2024 Team Status: Active Member Role Status Dates Narayan Gagnon DO Primary Care Provide r, Attending Provider Active Start: June 11, 2024 Team Status: Inactive Member Role Status Dates Narayan Gagnon DO Primary Care Provider Active Start: March 12, 2024 End: March 12, 2024Janna Krause APRN [employer] SUPERVISOR-CAttending ProviderActive Start: March 12, 2024 End: March 12, 2024Team MemberRelationshipSpecialtyStart DateEnd Date Narayan Gagnon DO [facility] - General07/30/14Team MemberRelationshipSpecialtyStart DateEnd Date Narayan Gagnon DO PCP - General07/30/14Team MemberRelationshipSpecialtyStart DateEnd Date Narayan Gagnon DO PCP - General07/30/14Team MemberRelationshipSpecialtyStart DateEnd Date Narayan Gagnon DO PCP - General07/30/14 Team Status: Active Member Role Status Dates Narayan Gagnon DO Primary Care Provider Active Start: January 21, 2024 Felecia Nicolas RMAAttenkirsten ProviderActiveStart: January 21, 2024 Team Status: Inactive Member Role Status Dates Narayan Gagnon DO Primary Care Provide r, Attending Provider Active Start: January 23, 2024 End: January 23, 2024Team MemberRelationshipSpecialtyStart DateEnd Date Narayan Gagnon DO PCP - General07/30/14Team MemberRelationshipSpecialtyStart DateEnd Date Narayan Gagnon DO PCP - [facility]07/30/14 Team Status: Inactive Member Role Status Dates Narayan Gagnon DO Primary Care Provide r, Attending Provider Active Start: September 25, 2024 End: September 25, 2024Team MemberRelationshipSpecialtyStart DateEnd Date Narayan Gagnon DO PCP - General07/30/14Team MemberRelationshipSpecialtyStart DateEnd Date Narayan Gagnon MD [address] [place] [address] PCP [facility]06/26/23Team MemberRelationshipSpecialtyStart Date End Date Narayan Gagnon MD [address] [place] [address] PCP - GeneralInternal Medicine06/26/23Team MemberRelationshipSpecialtyStart Date End Date Narayan Gagnon MD [address] [place] [facility] [id number] PCP - GeneralInternal Medicine06/26/23 Coco Hurtado DO [address] [address] Referring PhysicianNeurology2Team MemberRelationshipSpecialtyStart DateEnd Date Narayan Gagnon MD [address] [place] [facility] [phone] PCP - GeneralInternal Medicine06/26/23 Coco Hurtado DO [address] [address] Referring PhysicianNeurology2 Team Status: Inactive Member Role Status Dates Narayan Gagnon DO Primary Care Provider Active Start: April 30, 2025 End: April 30angelita Gagnon DOAttending ProviderActiveStart: April 30, 2025 End: April 30, 2025 Team Status: Active Member Role Status Dates Narayan Gagnon DO Primary Care Provider Active Start: June 14, 2025 Jamila PayanAttending ProviderActiveStart: June 14, 2025 Team Status: Inactive Member Role Status Dates Narayan Gagnon DO Primary Care Provider Active Start: July 15, 2025 End: July 15, 2025Ju Hoffmann APRN-FNP-CAttending ProviderActiveStart: July 15, 2025 End: July 15, 2025Team MemberRelationshipSpecialtyStart DateEnd Date Narayan Gagnon DO [address] [place] [facility] [id number] PCP - GeneralInternal Medicine06/26/23 Coco Hurtado DO [address] [place] [address] Referring PhysicianNeurology2 Team Status: Active Member Role/Relationship Status Dates Narayan Gagnon DO Primary Care Provider Active Team Status: Inactive Member Role/Relationship Status Dates Narayan Gagnon DO Primary Care Provider Active Start: July 15, 2025 End: July 15, 2025KIMO Porter-CAttending ProviderActiveStart: July 15, 2025 End: July 15, 2025 Team Status: Inactive Member Role/Relationship Status Dates Narayan Gagnon DO Primary Care Provider Active Start: September 23, 2025 End: September 23enjesse Gagnon DOAtttierra ProviderActiveStart: September 23, 2025 End: September 23, 2025 Scheduled Active and Recently Administ ered Medications (unrecognized section and content) Medication Order05/15//// acetaminophen (TYLENOL) tablet 1,000 mg (COMPLETED) 1,000 mg, Oral, ONCE, 1 dose, On Sat05/16/22 at 1930, Maximum dose of acetaminophen is 4000 mg fromall sources in 24 hours. * 193 (Given - Provider: Merrill Garcia RN) clonazePAM (KLONOPIN) tablet 1 mg (COMPLETED) 1 mg, Oral, ONCE, 1 dose, On Sat05/16/22 at 2300 * 2309 (Given - Provider: Deonna Randle RN) LORazepam (ATIVAN) tablet 1 mg (COMPLETED) 1 mg, Oral, ONCE, 1 dose, On Sat05/16/22 at 1930 * 1939 (Given - Provider: Merrill Garcia RN) OLANZapine (ZYPREXA) tablet 10 mg (COMPLETED) 10 mg, Oral, ONCE, 1 dose, On Sat05/17/22 at 0000 * 0018 (Given - Provider: Merrill Garcia RN) primidone (MYSOLINE) tablet 25 mg (COMPLETED) 25 mg, Oral, ONCE, 1 dose, On Sat05/16/22 at 2300 * 2309 (Given - Provider: Deonna Randle, ROLF) tiZANidine (ZANAFLEX) tablet 4 mg (COMPLETED) 4 mg, Oral, ONCE, 1 dose, On Sat05/16/22 at 2300 * 2309 (Given - Provider: Deonna Randle, RN) traZODone (DESYREL) tablet 100 mg (COMPLETED) 100 mg, Oral, ONCE, 1 dose, On Sat05/16/22 at 2300 * 2309 (Given - Provider: Deonna Randle, ROLF) Medication Order// clindamycin (CLEOCIN) 900 mg in dextrose 5 % 50 mL IVPB (COMPLETED) 900 mg, IntraVENous, ONCE, 1 dose, On Allyson 05/07/24 at 0730, Antimicrobial Indications: Surgical Prophylaxis, Pre-op (day of surgery) * 0845 (New Bag - Provider: Anabell Thompson RN) * 0945 (Due: Stopped - Provider: Anabell Thompson RN) Medication Order// lactated ringers IV soln infusion IntraVENous, at 100 mL/hr, CONTINUOUS, Starting on Allyson 05/07/24 at 0730, Pre-op (day of surgery) * 0730 (New Bag - Provider: Germaine Alvarez, ROLF) * 0850 (NoRateChange - Provider: Janna Love APRN - PROOFING MACHINE OPERATOR) * 0920 (Rate/Dose Change - Provider: Janna Love APRN - PROOFING MACHINE OPERATOR) * 0953 (Stopped - Provider: Ju Paulino RN) Medication Order// BUPivacaine (MARCAINE) 0.5 % 3 mL, lidocaine 1 % 3 mL (CANCELED) PRN, Starting on Allyson 05/07/24 at 0903, Intra-op * 0903 (Given - Provider: Kashmir Kelly DPM - Comment: right toes [...] BE BASED ON THE PRIMARY CLINICAL RECORDS. Phone [facility]. provides no warranty or guarantee of the accuracy or completeness of information in this document.
--- OUTSIDE RECORDS SUMMARY | 2025-10-09 07:36 | XMS_ITS | Clinical Summary ---
Author Organization [facility] Address [address] [place] [address] Care Team Providers Care Gift Basket Packer Name Role Phone Narayan Garcia DO Primary Care Provider [phone] Schuyler Hurtado DO Unavailable [phone] Allergies Active AllergyReactionsCriticalityNoted DateCommentsMorphineShortness of breath, AbiawYpso43/25/2021 Other Reaction(s): Vomiting YoatrtijcgdLuchu63/25/2021VancomycinAnaphylaxis,WknubonRduv63/25/2021 Medications MedicationSigDispense QuantityRefillsLast FilledStart DateEnd DateStatus empagliflozin (Jardiance) 25 MG Take 1 tablet by mouth DailyActive verapamil SR (Calan SR) 180 MG ER tablet Take 180 mg by mouth at bedtime. Do not crush or chew.Active lisinopril 20 MG tablet Take 20 mg by mouth DailyActive clonazePAM (KlonoPIN) 1 MG tablet Take by mouth 2 (two) times a day.Active glimepiride (Amaryl) 4 MG tablet Take 4 mg by mouth in the morning. Take before meals.Active dulaglutide (Trulicity) 4.5 MG/0.5ML solution pen-injector Inject 4.5 mg under the skin 1 (one) time per week.Active tiZANidine (Zanaflex) 4 MG capsule Take 4 mg by mouth 3 (three) times a day as needed for muscle spasmsActive pravastatin (Pravachol) 20 MG tablet Take 20 mg by mouth DailyActive traZODone (Desyrel) 100 MG tablet Take 100 mg by mouth at bedtime.Active divalproex (Depakote) 500 MG EC tablet Take 500 mg by mouth in the morning and 500 mg before bedtime. Do not crush, chew, or split. .Active traMADol (Ultram) 50 MG tablet Take 1 tablet by mouth 2 (two) times a day as needed for moderate pain or severe painActive aspirin 81 MG EC tablet Take 81 mg by mouth in the morning.Active docusate sodium (Colace) 100 MG capsule Take 100 mg by mouth in the morning and 100 mg before bedtime.Active omeprazole (PriLOSEC) [address] capsule Take 40 mg by mouth in the morning. Take before meals. Do not crush or chew. . Active cetirizine (ZyrTEC) 10 MG chewable tablet Chew Daily.Active iloperidone (Fanapt) 6 MG tablet Take 6 mg by mouth in the morning and 6 mg before bedtime.Active Calcium Polycarbophil (FIBER-LAX PO) Fiber-LaxActive True Metrix Blood Glucose Test test strip USE 1 STRIP TO CHECK GLUCOSE THREE TIMES DAILY11/01/2023ctive hyoscyamine (Levsin) 0.125 MG SL tablet DISSOLVE 1 TABLET UNDER THE TONGUE NEEDED BEFORE MEAL(S) AND AT BEDTIME FOR 15 DAYS11/14/2023ctive DULoxetine (Cymbalta) [address] capsule TAKE 1 CAPSULE BY MOUTH ONCE DAILY IN THE ZYHQSDW2111/27/2023ctive metFORMIN, MOD, (Glumetza) 1000 MG 24 hr tablet Take 1 tablet twice a day by oral route.Active lurasidone (Latuda) 60 MG tablet Take 1 tablet by mouth in the morning.Active Blood Glucose Monitoring Suppl (ReliOn True Met Air Gluc Meter) w/Device kit Take 1 puff by mouth if itwnpz4704/06/2024ctive Multiple Vitamin (MULTI VITAMIN DAILY PO) Active primidone (Mysoline) 50 MG tablet Indications:TremorTAKE 2 TABLETS BY MOUTH EVERY EVENING WITH SUPPER 56 tablet 5Active carbidopa-levodopa (Sinemet) 25-100 MG tablet Indications:TremorTAKE 1/2 TABLET BY MOUTH THREE TIMES A DAY AT 8AM, NOON, AND 4PM 42 tablet 5Active Active Problems ProblemNoted DateDiagnosed DateCognitive mpylbhu4804/16/20240188Cgjyax29/22/2024 Overview (04/15/2024): The patient initially presented with tremor that was intermittent with high amplitude. MRI was unrevealing for cause. 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 Tremor has responded significantlywell to increased dose of primidone. The patient completed occupational therapy recently which was effective. He plans to get adaptive utensils for meals. No significant difficulty with ADLs at this time related to tremor. - PLAN - The patient declined an increase in his primidone dose today due to symptom improvement - Continue primidone 50 mg - Take 1/2 tablet in the morning and 1 tablet in the evening. Side effects including sedation were discussed in detail. - It is possible that divalproex sodium is contributing to the patient's tremor, and I advised him to speak with the prescriber about this. 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 He follows with Dr. Patel for psychiatry and sees a counselor as well. 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 ([facility])02/28/2018Essential axthbjtcmedn90/06/8689Ppmenhdgbynstl41/06/2018 Neoplasm of lung02/28/2018Obstructive cknlfifzghn46/06/2018Type 2 diabetes uezouier34/06/2018Subjective lijscora60/26/2014 Resolved Problems ProblemNoted DateDiagnosed DateResolved DateAbdominal txyzprvz61/08/2023 07/02/2023bdominal painrtificial knee joint present /0068Sroeeivdw00ysuria Xjgudilan43History of colon Irregular bowel iknpkt22Nocturia Jxcxgqojcqv04Testicular afheaeqz79ost-void otuuekwsb95Urge dicxdcoofvgc34Urinary tmlwvtwmd67Urinary npewoa86lass 1 obesity Encounters DateTypeDepartmentCare UyndUgsrpezapiv69/26/2025 3:30 PM EDTOffice Visit [facility] [address] [place] [id number] Claude Penn, DO S/P total knee replacement, right (Primary Dx)07/20/2025 11:00 AM EDTAncillary Procedure [facility] [address] [place] [phone] 07/20/2025Travelfrom Last 3 Months Immunizations ImmunizationAdministration DatesNext LthMlvf8103/24/2014 Family History Medical HistoryRelationNameCommentsNo Known ProblemsBrotherCancerMaternal GrandfatherHeart diseaseMaternal GrandfatherDiabetesMaternal GrandmotherDiabetes MotherAllergiesOtherGrandfatherDiabetesOtherGrandfatherHyperlipidemiaOther GrandfatherHypertensionOtherGrandfatherMelanomaOtherGrandfatherSkin cancerOther GrandfatherRelationNameStatusCommentsBrotherFatherAliveMaternal Grandfather DeceasedMaternal GrandmotherDeceasedMotherAliveOtherGrandfather Social History Tobacco UseTypesPacks/DayYears UsedDateSmoking Tobacco: NeverSmokeless Tobacco: Never Tobacco Cessation:Counseling Given: Not Answered Alcohol UseStandard Drinks/WeekCommentsNever0 (1 standard drink = 0.6 oz pure alcohol)caffeine: >4 cups per daySex and Gender InformationValueDate RecordedSex Assigned at BirthNot on fileLegal SziJurj2102/06/2023 6:35 PM EDTGender Identity Not on fileSexual OrientationNot on file Last Filed Vital Signs Vital SignReadingTime TakenCommentsBlood Svejykix505/66001/21/2025 10:48 AM EST Tlhkh771701/21/2025 10:48 AM TGLUcnnnnzslup10.7 ??C (98 ??F)12/03/2023 10:34 AM ESTRespiratory Enxl014206/11/2024 1:05 PM EDTOxygen Qfuitrvqcv40%01/21/2025 10:48 AM ESTInhaled Oxygen Concentration--Pmyaiw70.2 kg (179 lb)07/20/2025 3:09 PM EDT Fhmisn753.6 cm (5' 6 )07/20/2025 3:09 PM EDTBody Mass Index28.8907/20/2025 3:09 PM EDT Plan of Treatment Not on file Procedures Procedure NamePriorityDate/TimeAssociated DiagnosisCommentsXR KNEE 3 VIEWS RIGHT Kzdutim7507/20/2025 10:59 AM EDT S/P total knee replacement, right from Last 3 Months Results * XR knee 3 views right (07/20/2025 10:59 AM EDT)Anatomical RegionLaterality ModalityLower Extremities, KneeRightRadiographic ImagingSpecimen (Source) Anatomical Location / LateralityCollection Method / VolumeCollection Time Received Time Narrative 07/22/2025 2:32 PM EDT Imaging Result: X-rays, permanently saved to the patient's record, are reviewed AP, lateral and sunrise views in the [place] office taken today show stable position and alignment of the right knee prosthesis. ?? No sign of loosening or infection. ?? The left knee does have moderate to severe degenerative changes that are grade III. ??There are prior interference screws of the tibia and femur from prior anterior cruciate ligament reconstruction in years past. ?? Authorizing ProviderResult TypeResult StatusMichael Jennie Penn DOIMG XR PROCEDURES Final Result from Last 3 Months Insurance Care Teams Team MemberRelationshipSpecialtyStart DateEnd Date Narayan Garcia DO [address] [place] [address] PCP - GeneralInternal Medicine06/26/23 Schuyler Hurtado DO [address] [place] [id number] Referring PhysicianNeurolog01/21/25
[2025-10-09 07:52] LABS: Hematocrit 44.0 % (42.0-54.0); Hemoglobin 15.4 g/dL (14.0-18.0); Immature Granulocytes Abs Auto 0.02 10^3/uL (0.00-0.03); Immature Granulocytes Pct Auto 0.4 % (0.0-0.5); Lymphocytes Absolute Auto 1.9 10^3/uL (1.2-3.8); Mean Corpuscular HGB Conc 35.0 g/dL (29.9-35.2); Mean Corpuscular Hemoglobin 32.8 pg (25.9-34.0); Mean Corpuscular Volume 93.8 fL (80.0-94.0); Platelet Count 191 10^3/uL (150-450); Red Blood Count 4.69 10^6/uL (4.70-6.10); White Blood Count 4.6 10^3/uL (4.0-11.0)
[2025-10-09 08:46] LABS: Alanine Aminotransferase 16 U/L (16-63); Albumin Globulin Ratio 1.2; Albumin Level 4.0 g/dL (3.4-5.0); Alkaline Phosphatase 62 U/L (46-116); Anion Gap 16.6; Aspartate Amino Transferase 9 U/L (15-37); Blood Urea Nitrogen 22.0 mg/dL (7.0-18.0); Calcium 9.0 mg/dL (8.5-10.1); Carbon Dioxide 23.8 mmol/L (21.0-32.0); Chloride 105 mmol/L (98-107); Cholesterol 166 mg/dL (<=200); Estimated GFR (African America >60 (>=60 mL/min/1.73m^2); Estimated GFR (Non-African Ame >60 (>=60 mL/min/1.73m^2); Globulin 3.3 g/dL; Glucose 209 mg/dL (74-106); HDL Cholesterol 45 mg/dL (40-60); Potassium 4.4 mmol/L (3.5-5.1); Sodium 141 mmol/L (136-145); Total Protein 7.3 g/dL (6.4-8.2); Triglycerides 173 mg/dL (<=150); VLDL CHOLESTEROL 34.6 mg/dL
== END 2025-10-09 07:32 | disposition home or self-care (01) ==
LOC: LAB 07:32
PROVIDERS: PCP Internal Medicine; Visit Provider Internal Medicine
DX: E78.00 Pure hypercholesterolemia, unspecified (principal); E11.65 Type 2 diabetes mellitus with hyperglycemia; I10 Essential (primary) hypertension; Z12.5 Encounter for screening for malignant neoplasm of prostate
CPT/HCPCS: 36415; 80053; 80061; 82043; 82570; 83036; 85025; G0103